=== PATIENT | female | born 1955 | race Caucasian/White ===

== ENCOUNTER → 2016-08-26 | Outpatient (CLI) | payer MEDICARE, MEDICAID ==
[2016-08-26 09:12] LABS: CHLORIDE,CL 105 mmol/L (98-110); SODIUM,NA 143 mmol/L (136-146)
== END ==
LOC: MW.CHENT 08:20 → MW.CHRC 08:20
PROVIDERS: ATTEND Family Medicine
DX: I10 Essential (primary) hypertension (principal); I25.10 Atherosclerotic heart disease of native coronary artery without angina pectoris; E10.65 Type 1 diabetes mellitus with hyperglycemia; G89.4 Chronic pain syndrome; E10.620 Type 1 diabetes mellitus with diabetic dermatitis
CPT/HCPCS: 36415; 80053; 80061; 80305; 82044; 83036; 99215

== ENCOUNTER → 2016-09-30 | Outpatient (CLI) | payer MEDICARE, MEDICAID | END | disposition home or self-care (01) | LOC: MW.CHRC 07:42 → MW.CHNEURO 07:42 | PROVIDERS: ATTEND Family Medicine | DX: Z00.00 Encounter for general adult medical examination without abnormal findings (principal); R74.8 Abnormal levels of other serum enzymes; I25.10 Atherosclerotic heart disease of native coronary artery without angina pectoris | CPT/HCPCS: 36415; 80061; 80076; 82465 ==

== ENCOUNTER → 2016-10-01 | Outpatient (CLI) | payer MEDICARE, MEDICAID | LOC: MW.CHNEURO 08:00 | PROVIDERS: ATTEND Psychiatry & Neurology Neuromuscular Medicine | DX: G25.0 Essential tremor (principal); G25.2 Other specified forms of tremor | CPT/HCPCS: G0463 ==

== ENCOUNTER 2018-01-21 03:27 | Emergency (ER) | payer MEDICARE, MEDICAID ==
[2018-01-21] MEDS ORDERED: Ondansetron 4 MG/2 ML SDV IVPUSH ONE (03:30)
[2018-01-21] MEDS ORDERED: Sodium Chloride 0.9% 1,000 ML IV ONE (03:30)
--- NOTE | 2018-01-21 03:31 | EDM.PDOC ---
ED HPI GENERAL MEDICAL PROBLEM - General Stated Complaint: CHEST PAINS/THROWING UP Time Seen by Provider: 01/21/18 03:31 Source of Information: Reports: Patient - History of Present Illness INITIAL COMMENTS - FREE TEXT/NARRATIVE: HISTORY AND PHYSICAL: History of present illness: [Patient presents with complaint of nausea vomiting and diarrhea, she has several episodes monthly similar symptoms however tonight the symptoms began at midnight is currently 5 AM and symptoms were not leaving on their own at home then she presents as such. She has secondary complaint of burning chest discomfort 2 out of 10 nonradiating not associated with shortness of breath or diaphoresis Patient was provided treatment below fluids, proton X, Zofran, and GI cocktail symptoms are completely alleviated ] Review of systems: As per history of present illness and below otherwise all systems reviewed and negative. Past medical history: As per history of present illness and as reviewed below otherwise noncontributory. Surgical history: As per history of present illness and as reviewed below otherwise noncontributory. Social history: No reported history of drug or alcohol abuse. Family history: As per history of present illness and as reviewed below otherwise noncontributory. Physical exam: HEENT: Atraumatic, normocephalic, pupils reactive, negative for conjunctival pallor or scleral icterus, mucous membranes moist, throat clear, neck supple, nontender, trachea midline. Lungs: Clear to auscultation, breath sounds equal bilaterally, chest nontender. Heart: S1S2, regular, negative for clicks, rubs, or JVD. Abdomen: Soft, nondistended, nontender. Negative for masses or hepatosplenomegaly. Negative for costovertebral tenderness. Pelvis: Stable nontender. Genitourinary: Deferred. Rectal: Deferred. Extremities: Atraumatic, negative for cords or calf pain. Neurovascular unremarkable. Neuro: Awake, alert, oriented. Cranial nerves II through XII unremarkable. Cerebellum unremarkable. Motor and sensory unremarkable throughout. Exam nonfocal. Diagnostics: [CBC CMP UA lipase troponin EKG Chest 1 view ] Therapeutics: [ 1 L normal saline bolus Zofran 8 mg IV Proton X 80 mg IV GI cocktail ] Impression: [ GERD Nausea vomiting resolved No loose stools while here in the emergency room Chronic history of baseline] Definitive disposition and diagnosis as appropriate pending reevaluation and review of above. epigastric Pain Score (Numeric/FACES): 6 - Related Data Allergies Allergy/AdvReac Type Severity Reaction Status Date / Time No Known Allergies Allergy Verified 01/21/18 03:50 Home Meds: Home Meds Acetaminophen with Codeine [Acetaminophen-Cod #4] 1 - 2 tab PO Q4HR PRN [History] Aspirin 81 mg PO DAILY 01/18/15 [History] Fludrocortisone [Florinef] 0.1 mg PO ASDIRECTED 01/18/15 [History] Insulin Glarg,Human.Rec.Analog [LantUS Solostar] 13 units SQ DAILY 01/18/15 [ History] Propranolol HCl 10 mg PO TID 01/18/15 [History] Sodium Bicarbonate 1 tab PO BIDMEALS 01/18/15 [History] amLODIPine [Norvasc] 1 tab PO DAILY 01/18/15 [History] Insulin Aspart [NovoLOG] 0 unit SUBCUT TIDAC pen 01/19/15 [Rx] Carisoprodol 1 tab PO TID 01/21/18 [History] Clopidogrel Bisulfate [Clopidogrel] 1 tab PO DAILY 01/21/18 [History] Lisinopril 1 tab PO DAILY 01/21/18 [History] Ondansetron HCl [Zofran] 1 tab PO ASDIRECTED PRN 01/21/18 [History] Pantoprazole [ProTONIX] 1 tab PO DAILY 01/21/18 [History] Rosuvastatin Calcium 1 tab PO BEDTIME 01/21/18 [History] Triamcinolone Acetonide [Triamcinolone Acetonide 0.1% Crm] 0 mg .XX BID [History] Past Medical History HEENT History: Reports: None Cardiovascular History: Reports: None Respiratory History: Reports: None Gastrointestinal History: Reports: None Other Gastrointestinal History: abdominal surgery [employer] History: Reports: 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 History: Reports: None Neurological History: Reports: None Psychiatric History: Reports: None Endocrine/Metabolic History: Reports: Other (See Below) Other Endocrine/Metabolic History: hyperkalemia Hematologic History: Reports: None Immunologic History: Reports: None Oncologic (Cancer) History: Reports: None Dermatologic History: Reports: None - Infectious Disease History Infectious Disease History: Reports: None - Past Surgical History Cardiovascular Surgical History: Reports: Other (See Below) Female Surgical History: Reports: Section ED ROS GENERAL - Review of Systems Review Of Systems: See Below ED EXAM, GENERAL - Physical Exam Exam: See Below Course - Vital Signs Last Recorded V/S: Last Vital Signs Temp 97 F 01/21/18 03:27 Pulse 65 01/21/18 04:52 Resp 18 01/21/18 04:52 BP 160/68 H 01/21/18 04:52 Pulse Ox 96 01/21/18 04:26 - Orders/Labs/Meds Orders: Active Orders 24 hr Category Date Time Status EKG Documentation Completion [RC] STAT Care 01/21/18 03:31 Active Chest 1V Frontal [CR] Stat Exams 01/21/18 03:31 Taken UA W/MICROSCOPIC [URIN] Stat Lab 01/21/18 03:30 Ordered Labs: Laboratory Tests 01/21/18 01/21/18 01/21/18 Range/Units 03:30 03:55 03:55 WBC 10.19 (4.0-11.0) K/uL RBC 4.12 L (4.30-5.90) M/uL Hgb 12.1 (12.0-16.0) g/dL Hct 36.8 (36.0-46.0) % MCV 89.3 (80.0-98.0) fL MCH 29.4 (27.0-32.0) pg MCHC 32.9 (31.0-37.0) g/dL RDW Std Deviation 45.9 (28.0-62.0) fl RDW Coeff of Hesham 14 (11.0-15.0) % Plt Count 264 (150-400) K/uL MPV 10.60 (7.40-12.00) fL Neut % (Auto) 74.0 (48.0-80.0) % Lymph % (Auto) 12.8 L (16.0-40.0) % [place] % (Auto) 9.7 (0.0-15.0) % Eos % (Auto) 2.9 (0.0-7.0) % Baso % (Auto) 0.6 (0.0-1.5) % Neut # (Auto) 7.5 H (1.4-5.7) K/uL Lymph # (Auto) 1.3 (0.6-2.4) K/uL [place] # (Auto) 1.0 H (0.0-0.8) K/uL Eos # (Auto) 0.3 (0.0-0.7) K/uL Baso # (Auto) 0.1 (0.0-0.1) K/uL Nucleated RBC % 0.0 /100WBC Nucleated RBCs # 0 K/uL Sodium 140 (136-145) mmol/L Potassium 3.6 (3.5-5.1) mmol/L Chloride 104 (98-107) mmol/L Carbon Dioxide 29.4 (21.0-32.0) mmol/L BUN 12 (7.0-18.0) mg/dL Creatinine 0.7 (0.6-1.0) mg/dL Est Cr Clr Drug Dosing 58.32 mL/min Estimated GFR (MDRD) > 60.0 ml/min Glucose 165 H (74-106) mg/dL Calcium 8.0 L (8.5-10.1) mg/dL Total Bilirubin 0.4 (0.2-1.0) mg/dL AST 30 (15-37) IU/L ALT 33 (14-63) IU/L Alkaline Phosphatase 121 H (46-116) U/L Troponin I < 0.050 (0.000-0.056) ng/mL Total Protein 6.8 (6.4-8.2) g/dL Albumin 2.9 L (3.4-5.0) g/dL Globulin 3.9 H (2.0-3.5) g/dL Albumin/Globulin Ratio 0.7 L (1.3-2.8) Lipase 67 L (73-393) U/L Urine Color YELLOW Urine Appearance CLEAR Urine pH 7.5 (5.0-8.0) Ur Specific [place] 1.010 (1.001-1.035) Urine Protein TRACE (NEGATIVE) mg/dL Urine Glucose (UA) 100 H (NEGATIVE) mg/dL Urine Ketones NEGATIVE (NEGATIVE) mg/dL Urine Occult Blood NEGATIVE (NEGATIVE) Urine Nitrite NEGATIVE (NEGATIVE) Urine Bilirubin NEGATIVE (NEGATIVE) Urine Urobilinogen 0.2 (<2.0) EU/dL Ur Leukocyte Esterase NEGATIVE (NEGATIVE) Urine RBC 0-1 (0-2/HPF) Urine WBC 0-2 (0-5/HPF) Ur Epithelial Cells RARE (NONE-FEW) Urine Bacteria RARE (NEGATIVE) Urine Mucus LIGHT (NONE-MOD) Meds: Medications Discontinued Medications Generic Name Dose Route Start Last Admin Trade Name Marcelino PRN Reason Stop Dose Admin Al Hydroxide/Mg Hydroxide 15 0 ml 01/21/18 04:03 01/21/18 04:15 ml/ Metoclopramide HCl 5 mg/ PO 01/21/18 04:04 1 each Lidocaine HCl 5 ml ONETIME ONE Administration Sodium Chloride 1,000 mls @ 999 mls/hr 01/21/18 03:30 01/21/18 03:40 Normal Saline IV 01/21/18 04:30 999 mls/hr STAT ONE Administration Ondansetron HCl 8 mg 01/21/18 03:30 01/21/18 03:40 Zofran IVPUSH 01/21/18 03:31 8 mg ONETIME ONE Administration Pantoprazole Sodium 80 mg 01/21/18 03:32 01/21/18 03:42 Protonix Iv IVPUSH 01/21/18 03:33 80 mg .BOLUS ONE Administration Departure - Departure Time of Disposition: 04:58 Disposition: Home, Self-Care 01 Condition: Good Clinical Impression: GERD (gastroesophageal reflux disease) - Discharge Information Referrals: Oskar Verma MD [Primary Care Provider] - Additional Instructions: Omeprazole 40 mg daily may benefit Zantac 150 milligrams 2 times daily may benefit as your symptoms are only nocturnal, you may benefit from elevating the head of your bed as discussed Follow-up with your primary care in 2 weeks sooner as needed Return if symptoms persist or worsen or new concerning symptoms develop The following information is given to patients seen in the emergency department who are being discharged to home. This information is to outline your options for follow-up care. We provide all patients seen in our emergency department with a follow-up referral. The need for follow-up, as well as the timing and circumstances, are variable depending upon the specifics of your emergency department visit. If you don't have a primary care physician on staff, we will provide you with a referral. We always advise you to contact your personal physician following an emergency department visit to inform them of the circumstance of the visit and for follow-up with them and/or the need for any referrals to a consulting specialist. The emergency department will also refer you to a specialist when appropriate. This referral assures that you have the opportunity for follow-up care with a specialist. All of these measure are taken in an effort to provide you with optimal care, which includes your follow-up. Under all circumstances we always encourage you to contact your private physician who remains a resource for coordinating your care. When calling for follow-up care, please make the office aware that this follow-up is from your recent emergency room visit. If for any reason you are refused follow-up, please contact the [facility] emergency department at and asked to speak to the emergency department charge nurse. - My Orders Last 24 Hours: My Active Orders 01/21/18 03:30 UA W/MICROSCOPIC [URIN] Stat 01/21/18 03:31 EKG Documentation Completion [RC] STAT Chest 1V Frontal [CR] Stat - Assessment/Plan Last 24 Hours: My Active Orders 01/21/18 03:30 UA W/MICROSCOPIC [URIN] Stat 01/21/18 03:31 EKG Documentation Completion [RC] STAT Chest 1V Frontal [CR] Stat
[2018-01-21] MEDS ORDERED: Pantoprazole 40 MG Vial IVPUSH ONE (03:32)
[2018-01-21] MEDS ORDERED: Alum Hydrox/Mag Hydrox/Simeth 15 ML, Metoclopramide 5 MG, Lidocaine 2% 5 ML PO ONE ×3 (04:03)
[2018-01-21 04:25] LABS: CHLORIDE,CL 104 mmol/L (98-107); SODIUM,NA 140 mmol/L (136-145)
[2018-01-21 05:15] VITALS: BP 164/67
--- NOTE | 2018-01-21 14:25 | CR ---
EXAM DATE: 01/21/18 PATIENT'S AGE: 62 Patient: KIRSTY DE GUZMAN Facility: [place], [place] Site . Site : [id number] Study: XRay Chest [id number] 3:53:04 AM Ordering Physician: Doctor Wolf Final Report: Indication: Pain. Shortness of breath Technique: Chest 1 view Comparison: None Findings/Impression: Cardiovascular and mediastinum: Heart size and vasculature are normal in caliber and appearance. Mediastinum is within normal limits. Lungs and pleural space: An apparent very subtle and ill-defined left infrahilar opacity with partial obscuration of the left cardiac border, concerning for an evolving infectious infiltrate. Probable right infrahilar vascular crowding. An apparent 9 millimeter right upper lung nodular opacity projecting over the posterior 5th rib. Correlate clinically and followup to document resolution. If these do not resolve, correlate with CT. No pleural effusions. Bones and soft tissues: A chronic deformity of the proximal left humerus. Surgical clips projecting over the lower thoracic spine. Dictated by Robe Ho MD @ 01/21/2018 4:13:49 AM Dictated by: Robe Ho MD @ 01/21/2018 04:13:52 (Electronic Signature) Report Signed by Proxy. THIERRY
== END 2018-01-21 05:05 | disposition home or self-care (01) ==
LOC: MW.ED 03:27
DX: K21.9 Gastro-esophageal reflux disease without esophagitis (principal); Z79.899 Other long term (current) drug therapy; Z79.82 Long term (current) use of aspirin
CPT/HCPCS: 36415; 71045; 80053; 81001; 83690; 84484; 85025; 93005; 96361; 96374; 96375; 99284; A9270; C9113; J2405; J7040; 99283

== ENCOUNTER 2018-06-30 08:55 | Observation (INO) | payer MEDICARE, MEDICAID ==
[2018-06-30] MEDS ORDERED: Ondansetron 4 MG/2 ML SDV IVPUSH ONE (09:00)
[2018-06-30] MEDS ORDERED: Alum Hydrox/Mag Hydrox/Simeth 15 ML, Metoclopramide 5 MG, Lidocaine 2% 5 ML PO ONE ×3 (09:00)
[2018-06-30] MEDS ORDERED: Sodium Chloride 0.9% 1,000 ML IV ONE (09:00)
--- NOTE | 2018-06-30 09:00 | EDM.PDOC ---
ED HPI GENERAL MEDICAL PROBLEM - General Stated Complaint: PT SENT TO ER BY PCP Time Seen by Provider: 06/30/18 08:57 - History of Present Illness INITIAL COMMENTS - FREE TEXT/NARRATIVE: HISTORY AND PHYSICAL: History of present illness: Patient is a 63-year-old female who presents with a concern of nausea vomiting diarrhea 1 day she was sent here for evaluation and treatment patient has had similar episodes in the past she denies fever chills chest pain shortness of breath or other concern Review of systems: As per history of present illness and below otherwise all systems reviewed and negative. Past medical history: As per history of present illness and as reviewed below otherwise noncontributory. Surgical history: As per history of present illness and as reviewed below otherwise noncontributory. Social history: No reported history of drug or alcohol abuse. Family history: As per history of present illness and as reviewed below otherwise noncontributory. Physical exam: HEENT: Atraumatic, normocephalic, pupils reactive, negative for conjunctival pallor or scleral icterus, mucous membranes dry, throat clear, neck supple, nontender, trachea midline. Lungs: Clear to auscultation, breath sounds equal bilaterally, chest nontender. Heart: S1S2, regular, negative for clicks, rubs, or JVD. Abdomen: Soft, nondistended, nontender. Negative for masses or hepatosplenomegaly. Negative for costovertebral tenderness. Pelvis: Stable nontender. Genitourinary: Deferred. Rectal: Deferred. Extremities: Atraumatic, negative for cords or calf pain. Neurovascular unremarkable. Neuro: Awake, alert, oriented. Cranial nerves II through XII unremarkable. Cerebellum unremarkable. Motor and sensory unremarkable throughout. Exam nonfocal. Diagnostics: CBC CMP troponin chest x-ray EKG ABG Therapeutics: Saline 1 L bolus GI cocktail Zofran 4 mg IV Impression: #1 diabetes #2 vomiting/diarrhea with dehydration Definitive disposition and diagnosis as appropriate pending reevaluation and review of above. - Related Data Allergies Allergy/AdvReac Type Severity Reaction Status Date / Time No Known Allergies Allergy Verified 01/21/18 03:50 Home Meds: Home Meds Acetaminophen with Codeine [Acetaminophen-Cod #4] 1 - 2 tab PO Q4HR PRN [History] Aspirin 81 mg PO DAILY 01/18/15 [History] Fludrocortisone [Florinef] 0.1 mg PO ASDIRECTED 01/18/15 [History] Insulin Glarg,Human.Rec.Analog [LantUS Solostar] 13 units SQ DAILY 01/18/15 [ History] Propranolol HCl 10 mg PO TID 01/18/15 [History] Sodium Bicarbonate 1 tab PO BIDMEALS 01/18/15 [History] amLODIPine [Norvasc] 1 tab PO DAILY 01/18/15 [History] Insulin Aspart [NovoLOG] 0 unit SUBCUT TIDAC pen 01/19/15 [Rx] Carisoprodol 1 tab PO TID 01/21/18 [History] Clopidogrel Bisulfate [Clopidogrel] 1 tab PO DAILY 01/21/18 [History] Lisinopril 1 tab PO DAILY 01/21/18 [History] Ondansetron HCl [Zofran] 1 tab PO ASDIRECTED PRN 01/21/18 [History] Pantoprazole [ProTONIX] 1 tab PO DAILY 01/21/18 [History] Rosuvastatin Calcium 1 tab PO BEDTIME 01/21/18 [History] Triamcinolone Acetonide [Triamcinolone Acetonide 0.1% Crm] 0 mg .XX BID [History] Past Medical History HEENT History: Reports: None Cardiovascular History: Reports: None Respiratory History: Reports: None Gastrointestinal History: Reports: None Other Gastrointestinal History: abdominal surgery [employer] History: Reports: 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 History: Reports: None Neurological History: Reports: None Psychiatric History: Reports: None Endocrine/Metabolic History: Reports: Other (See Below) Other Endocrine/Metabolic History: hyperkalemia Hematologic History: Reports: None Immunologic History: Reports: None Oncologic (Cancer) History: Reports: None Dermatologic History: Reports: None - Infectious Disease History Infectious Disease History: Reports: None - Past Surgical History Cardiovascular Surgical History: Reports: Other (See Below) Female Surgical History: Reports: Section Social & Family History - Family History Family Medical History: Noncontributory ED ROS GENERAL - Review of Systems Review Of Systems: ROS reveals no pertinent complaints other than HPI. ED EXAM, GENERAL - Physical Exam Exam: See Below (See dictation) Course - Vital Signs Last Recorded V/S: Last Vital Signs Temp 36.4 C 06/30/18 11:51 Pulse 70 06/30/18 11:51 Resp 13 06/30/18 11:51 BP 125/55 L 06/30/18 11:51 Pulse Ox 95 06/30/18 11:51 - Orders/Labs/Meds Orders: Active Orders 24 hr Category Date Time Status EKG 12 Lead [EKG Documentation Completion] [RC] STAT Care 06/30/18 09:16 Active CBC WITH AUTO DIFF [HEME] Stat Lab 06/30/18 07:55 Results CULTURE BLOOD [BC] Stat Lab 06/30/18 10:57 Received CULTURE BLOOD [BC] Stat Lab 06/30/18 11:13 Received cefTRIAXone [Rocephin in Dextrose,Iso-Osm 1 GM/50 ML] 1 Med 06/30/18 12:15 Ordered gm Premix Bag 1 bag IV ONETIME Blood Culture x2 Reflex Set [OM.PC] Stat Oth 06/30/18 10:40 Ordered Medication Orders Ceftriaxone Sodium/Dextrose 1 (gm/ Premix) 50 mls @ 100 mls/hr IV ONETIME ONE Stop: 06/30/18 12:44 Labs: Laboratory Tests 06/30/18 06/30/18 06/30/18 Range/Units 07:55 07:55 08:12 WBC 22.15 H (4.0-11.0) K/uL RBC 4.30 (4.30-5.90) M/uL Hgb 12.7 (12.0-16.0) g/dL Hct 38.7 (36.0-46.0) % MCV 90.0 (80.0-98.0) fL MCH 29.5 (27.0-32.0) pg MCHC 32.8 (31.0-37.0) g/dL RDW Std Deviation 45.7 (28.0-62.0) fl RDW Coeff of Hesham 14 (11.0-15.0) % Plt Count 264 (150-400) K/uL MPV 10.80 (7.40-12.00) fL Add Manual Diff YES Nucleated RBC % 0.0 /100WBC Nucleated RBCs # 0 K/uL ABG pH 7.541 H (7.35-7.45) ABG pCO2 33 L (35-45) mmHG ABG pO2 65 L (75-100) mmHG ABG HCO3 28 H (22-26) mEq/L ABG Total CO2 24.8 ABG Base Excess 5.5 H (-2.0-2.0) Lactate (0.20-2.00) mmol/L Sodium 139 (136-145) mmol/L Potassium 4.1 (3.5-5.1) mmol/L Chloride 101 (98-107) mmol/L Carbon Dioxide 26.8 (21.0-32.0) mmol/L BUN 12 (7.0-18.0) mg/dL Creatinine 0.9 (0.6-1.0) mg/dL Est Cr Clr Drug Dosing TNP Estimated GFR (MDRD) > 60.0 ml/min Glucose 226 H (74-106) mg/dL POC Glucose (60-110) mg/dL Calcium 9.3 (8.5-10.1) mg/dL Total Bilirubin 0.5 (0.2-1.0) mg/dL AST 60 H (15-37) IU/L ALT 64 H (14-63) IU/L Alkaline Phosphatase 132 H (46-116) U/L Troponin I < 0.050 (0.000-0.056) ng/mL Total Protein 7.4 (6.4-8.2) g/dL Albumin 3.1 L (3.4-5.0) g/dL Globulin 4.3 H (2.6-4.0) g/dL Albumin/Globulin Ratio 0.7 L (0.9-1.6) Urine Color Urine Appearance Urine pH (5.0-8.0) Ur Specific [place] (1.001-1.035) Urine Protein (NEGATIVE) mg/dL Urine Glucose (UA) (NEGATIVE) mg/dL Urine Ketones (NEGATIVE) mg/dL Urine Occult Blood (NEGATIVE) Urine Nitrite (NEGATIVE) Urine Bilirubin (NEGATIVE) Urine Ictotest Urine Urobilinogen (<2.0) EU/dL Ur Leukocyte Esterase (NEGATIVE) Urine RBC (0-2/HPF) Urine WBC (0-5/HPF) Ur Epithelial Cells (NONE-FEW) Urine Bacteria (NEGATIVE) Urine Mucus (NONE-MOD) Urine Yeast 06/30/18 06/30/18 06/30/18 Range/Units 09:05 10:47 10:57 WBC (4.0-11.0) K/uL RBC (4.30-5.90) M/uL Hgb (12.0-16.0) g/dL Hct (36.0-46.0) % MCV (80.0-98.0) fL MCH (27.0-32.0) pg MCHC (31.0-37.0) g/dL RDW Std Deviation (28.0-62.0) fl RDW Coeff of Hesham (11.0-15.0) % Plt Count (150-400) K/uL MPV (7.40-12.00) fL Add Manual Diff Nucleated RBC % /100WBC Nucleated RBCs # K/uL ABG pH (7.35-7.45) ABG pCO2 (35-45) mmHG ABG pO2 (75-100) mmHG ABG HCO3 (22-26) mEq/L ABG Total CO2 ABG Base Excess (-2.0-2.0) Lactate 1.1 (0.20-2.00) mmol/L Sodium (136-145) mmol/L Potassium (3.5-5.1) mmol/L Chloride (98-107) mmol/L Carbon Dioxide (21.0-32.0) mmol/L BUN (7.0-18.0) mg/dL Creatinine (0.6-1.0) mg/dL Est Cr Clr Drug Dosing Estimated GFR (MDRD) ml/min Glucose (74-106) mg/dL POC Glucose 230 H (60-110) mg/dL Calcium (8.5-10.1) mg/dL Total Bilirubin (0.2-1.0) mg/dL AST (15-37) IU/L ALT (14-63) IU/L Alkaline Phosphatase (46-116) U/L Troponin I (0.000-0.056) ng/mL Total Protein (6.4-8.2) g/dL Albumin (3.4-5.0) g/dL Globulin (2.6-4.0) g/dL Albumin/Globulin Ratio (0.9-1.6) Urine Color YELLOW Urine Appearance CLEAR Urine pH 5.5 (5.0-8.0) Ur Specific [place] 1.025 (1.001-1.035) Urine Protein 30 H (NEGATIVE) mg/dL Urine Glucose (UA) NEGATIVE (NEGATIVE) mg/dL Urine Ketones 15 H (NEGATIVE) mg/dL Urine Occult Blood NEGATIVE (NEGATIVE) Urine Nitrite NEGATIVE (NEGATIVE) Urine Bilirubin SMALL H (NEGATIVE) Urine Ictotest NEGATIVE Urine Urobilinogen 0.2 (<2.0) EU/dL Ur Leukocyte Esterase TRACE H (NEGATIVE) Urine RBC RARE (0-2/HPF) Urine WBC 15-20 (0-5/HPF) Ur Epithelial Cells FEW (NONE-FEW) Urine Bacteria 1+ H (NEGATIVE) Urine Mucus LIGHT (NONE-MOD) Urine Yeast MODERATE Meds: Medications Generic Name Dose Route Start Last Admin Trade Name Freq PRN Reason Stop Dose Admin Ceftriaxone Sodium/Dextrose 1 50 mls @ 100 mls/hr 06/30/18 12:15 gm/ Premix IV 06/30/18 12:44 ONETIME ONE Discontinued Medications Generic Name Dose Route Start Last Admin Trade Name Freq PRN Reason Stop Dose Admin Al Hydroxide/Mg Hydroxide 15 0 ml 06/30/18 09:00 06/30/18 09:11 ml/ Metoclopramide HCl 5 mg/ PO 06/30/18 09:01 30 each Lidocaine HCl 5 ml ONETIME ONE Administration Sodium Chloride 1,000 mls @ 999 mls/hr 06/30/18 09:00 06/30/18 09:10 Normal Saline IV 06/30/18 10:00 999 mls/hr .BOLUS ONE Administration Ondansetron HCl 4 mg 06/30/18 09:00 06/30/18 09:11 Zofran IVPUSH 06/30/18 09:01 4 mg ONETIME ONE Administration Departure - Departure Time of Disposition: 12:19 Disposition: Refer to Observation Condition: Good Clinical Impression: Gastroenteritis, Leukocytosis, Dehydration, UTI (urinary tract infection) - Discharge Information - My Orders Last 24 Hours: My Active Orders 06/30/18 07:55 CBC WITH AUTO DIFF [HEME] Stat 06/30/18 09:16 EKG 12 Lead [EKG Documentation Completion] [RC] STAT 06/30/18 10:40 Blood Culture x2 Reflex Set [OM.PC] Stat 06/30/18 10:57 CULTURE BLOOD [BC] Stat 06/30/18 11:13 CULTURE BLOOD [BC] Stat 06/30/18 12:15 cefTRIAXone [Rocephin in Dextrose,Iso-Osm 1 GM/50 ML] 1 gm Premix Bag 1 bag IV ONETIME - Assessment/Plan Last 24 Hours: My Active Orders 06/30/18 07:55 CBC WITH AUTO DIFF [HEME] Stat 06/30/18 09:16 EKG 12 Lead [EKG Documentation Completion] [RC] STAT 06/30/18 10:40 Blood Culture x2 Reflex Set [OM.PC] Stat 06/30/18 10:57 CULTURE BLOOD [BC] Stat 06/30/18 11:13 CULTURE BLOOD [BC] Stat 06/30/18 12:15 cefTRIAXone [Rocephin in Dextrose,Iso-Osm 1 GM/50 ML] 1 gm Premix Bag 1 bag IV ONETIME
[2018-06-30 09:26] LABS: CHLORIDE,CL 101 mmol/L (98-107); SODIUM,NA 139 mmol/L (136-145)
[2018-06-30] MEDS ORDERED: cefTRIAXone 1 GM in Premix Bag 1 BAG IV ONE (12:15)
[2018-06-30] MEDS ORDERED: Docusate Sodium 100 MG Cap PO PRN (12:36)
[2018-06-30] MEDS ORDERED: oxyCODONE 5 MG Tab PO PRN (12:36)
[2018-06-30] MEDS ORDERED: Ondansetron 4 MG/2 ML SDV IVPUSH PRN (12:36)
[2018-06-30] MEDS ORDERED: Acetaminophen 325 MG Tab PO PRN (12:36)
[2018-06-30] MEDS ORDERED: Fludrocortisone 0.1 MG Tab PO SCH (12:45)
[2018-06-30] MEDS ORDERED: Enoxaparin 40 MG/0.4 ML Syringe SUBCUT SCH ×2 (12:45→18:00)
[2018-06-30] MEDS ORDERED: cefTRIAXone 1 GM in Sodium Chloride 0.9% 50 ML IV SCH (13:00)
--- NOTE | 2018-06-30 13:17 | PCM.HP ---
H&P History of Present Illness - General Date of Service: 06/30/18 Admit Problem/Dx: Admission Diagnosis/Problem Admission Diagnosis/Problem Gastroenteritis, chronic N/V, DM 1 Source of Information: Patient, Old Records History Limitations: Reports: No Limitations - History of Present Illness Initial Comments - Free Text/Narative: The patient is a 63-year-old lady who had presented to the emergency department had a request for her primary care physician. The patient had followed with her primary care physician for some laboratory testing as well as a repeat hemoglobin A1c and she had been noted to have appeared to be somewhat dehydrated as well as significant leukocytosis. The patient, herself, says that she feels great. The patient has denied any pain. Denied any dizziness. She does have chronic nausea and vomiting says she had a partial gastrectomy secondary to gastric ulcer. The patient does acknowledge that she feels dehydrated. She has denied any pain. 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 The patient has no other complaints at this time. Onset of Symptoms: Reports: Unknown/Unsure Improves with: Reports: None Worsens with: Reports: None - Related Data Allergies/Adverse Reactions: Allergies Allergy/AdvReac Type Severity Reaction Status Date / Time No Known Allergies Allergy Verified 01/21/18 03:50 Home Medications: Home Meds Acetaminophen with Codeine [Acetaminophen-Cod #4] 1 - 2 tab PO Q4HR PRN [History] Aspirin 81 mg PO DAILY 01/18/15 [History] Fludrocortisone [Florinef] 0.1 mg PO ASDIRECTED 01/18/15 [History] Insulin Glarg,Human.Rec.Analog [LantUS Solostar] 13 units SQ DAILY 01/18/15 [ History] Propranolol HCl 10 mg PO TID 01/18/15 [History] Sodium Bicarbonate 1 tab PO BIDMEALS 01/18/15 [History] amLODIPine [Norvasc] 1 tab PO DAILY 01/18/15 [History] Insulin Aspart [NovoLOG] 0 unit SUBCUT TIDAC pen 01/19/15 [Rx] Carisoprodol 1 tab PO TID 01/21/18 [History] Clopidogrel Bisulfate [Clopidogrel] 1 tab PO DAILY 01/21/18 [History] Lisinopril 1 tab PO DAILY 01/21/18 [History] Ondansetron HCl [Zofran] 1 tab PO ASDIRECTED PRN 01/21/18 [History] Pantoprazole [ProTONIX] 1 tab PO DAILY 01/21/18 [History] Rosuvastatin Calcium 1 tab PO BEDTIME 01/21/18 [History] Triamcinolone Acetonide [Triamcinolone Acetonide 0.1% Crm] 0 mg .XX BID [History] Past Medical History HEENT History: Reports: None Cardiovascular History: Reports: None Respiratory History: Reports: None Gastrointestinal History: Reports: None Other Gastrointestinal History: abdominal surgery [employer] History: Reports: 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 History: Reports: None Neurological History: Reports: None Psychiatric History: Reports: None Endocrine/Metabolic History: Reports: Diabetes, Type I Other Endocrine/Metabolic History: hyperkalemia Hematologic History: Reports: None Immunologic History: Reports: None Oncologic (Cancer) History: Reports: None Dermatologic History: Reports: Other (See Below) (necrobiosis lipoidica ulcers) - Infectious Disease History Infectious Disease History: Reports: None - Past Surgical History Cardiovascular Surgical History: Reports: Other (See Below) GI Surgical History: Reports: Other (See Below) (Partial gastrectomy secondary to ulcer) Female Surgical History: Reports: Section 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 Surgical History: Reports: Shoulder Surgery Social & Family History - Family History Family Medical History: Noncontributory - Tobacco Use Smoking Status *Q: Former Smoker Used Tobacco, but Quit: Yes Month/Year Tobacco Last Used: 03/2018 - Caffeine Use Caffeine Use: Reports: Coffee - Alcohol Use Days Per Week of Alcohol Use: 3 Number of Drinks Per Day: 1 Total Drinks Per Week: 3 - Recreational Drug Use Recreational Drug Use: No H&P Review of Systems - Review of Systems: Review Of Systems: See Below General: Reports: Chills HEENT: Reports: No Symptoms Pulmonary: Reports: No Symptoms Cardiovascular: Reports: No Symptoms Gastrointestinal: Reports: Diarrhea, Nausea, Vomiting. Denies: Hematemesis, Hematochezia Genitourinary: Reports: No Symptoms 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: Reports: No Symptoms Skin: Reports: No Symptoms Psychiatric: Reports: No Symptoms Neurological: Reports: No Symptoms Hematologic/Lymphatic: Reports: No Symptoms Immunologic: Reports: No Symptoms Exam - Exam Exam: See Below - Vital Signs Vital Signs: Last Vital Signs Temp 36.4 C 06/30/18 11:51 Pulse 70 06/30/18 11:51 Resp 13 06/30/18 11:51 BP 125/55 L 06/30/18 11:51 Pulse Ox 95 06/30/18 11:51 Weight: 40.823 kg - Exam Quality Assessment: No: Supplemental Oxygen General: Alert, Oriented, Cooperative HEENT: Conjunctiva Clear, EACs Clear, EOMI, Hearing Intact, Pupils Equal, PERRLA. No: Mucosa Moist & [place] (Dry) Neck: Supple, Trachea Midline Lungs: Clear to Auscultation, Normal Respiratory Effort Cardiovascular: Regular Rate, Regular Rhythm GI/Abdominal Exam: Normal Bowel Sounds, Soft, Non-Tender, No Distention (Female) Exam: Deferred Rectal (Female) Exam: Deferred Back Exam: Normal Inspection, Full Range of Motion Extremities: Normal Inspection, No Pedal Edema Skin: Warm, Dry Neurological: Cranial Nerves Intact Neuro Extensive - Mental Status: Alert, Oriented x3 Psychiatric: Alert, Normal Affect, Normal Mood - Patient Data Lab Results Last 24 hrs: Laboratory Results - last 24 hr 06/30/18 06/30/18 06/30/18 Range/Units 07:55 07:55 08:12 WBC 22.15 H (4.0-11.0) K/uL RBC 4.30 (4.30-5.90) M/uL Hgb 12.7 (12.0-16.0) g/dL Hct 38.7 (36.0-46.0) % MCV 90.0 (80.0-98.0) fL MCH 29.5 (27.0-32.0) pg MCHC 32.8 (31.0-37.0) g/dL RDW Std Deviation 45.7 (28.0-62.0) fl RDW Coeff of Hes[place] 14 (11.0-15.0) % Plt Count 264 (150-400) K/uL MPV 10.80 (7.40-12.00) fL Add Manual Diff YES Nucleated RBC % 0.0 /100WBC Nucleated RBCs # 0 K/uL ABG pH 7.541 H (7.35-7.45) ABG pCO2 33 L (35-45) mmHG ABG pO2 65 L (75-100) mmHG ABG HCO3 28 H (22-26) mEq/L ABG Total CO2 24.8 ABG Base Excess 5.5 H (-2.0-2.0) Lactate (0.20-2.00) mmol/L Sodium 139 (136-145) mmol/L Potassium 4.1 (3.5-5.1) mmol/L Chloride 101 (98-107) mmol/L Carbon Dioxide 26.8 (21.0-32.0) mmol/L BUN 12 (7.0-18.0) mg/dL Creatinine 0.9 (0.6-1.0) mg/dL Est Cr Clr Drug Dosing TNP Estimated GFR (MDRD) > 60.0 ml/min Glucose 226 H (74-106) mg/dL POC Glucose (60-110) mg/dL Calcium 9.3 (8.5-10.1) mg/dL Total Bilirubin 0.5 (0.2-1.0) mg/dL AST 60 H (15-37) IU/L ALT 64 H (14-63) IU/L Alkaline Phosphatase 132 H (46-116) U/L Troponin I < 0.050 (0.000-0.056) ng/mL Total Protein 7.4 (6.4-8.2) g/dL Albumin 3.1 L (3.4-5.0) g/dL Globulin 4.3 H (2.6-4.0) g/dL Albumin/Globulin Ratio 0.7 L (0.9-1.6) Urine Color Urine Appearance Urine pH (5.0-8.0) Ur Specific [place] (1.001-1.035) Urine Protein (NEGATIVE) mg/dL Urine Glucose (UA) (NEGATIVE) mg/dL Urine Ketones (NEGATIVE) mg/dL Urine Occult Blood (NEGATIVE) Urine Nitrite (NEGATIVE) Urine Bilirubin (NEGATIVE) Urine Ictotest Urine Urobilinogen (<2.0) EU/dL Ur Leukocyte Esterase (NEGATIVE) Urine RBC (0-2/HPF) Urine WBC (0-5/HPF) Ur Epithelial Cells (NONE-FEW) Urine Bacteria (NEGATIVE) Urine Mucus (NONE-MOD) Urine Yeast 06/30/18 06/30/18 06/30/18 Range/Units 09:05 10:47 10:57 WBC (4.0-11.0) K/uL RBC (4.30-5.90) M/uL Hgb (12.0-16.0) g/dL Hct (36.0-46.0) % MCV (80.0-98.0) fL MCH (27.0-32.0) pg MCHC (31.0-37.0) g/dL RDW Std Deviation (28.0-62.0) fl RDW Coeff of [place]ham (11.0-15.0) % Plt Count (150-400) K/uL MPV (7.40-12.00) fL Add Manual Diff Nucleated RBC % /100WBC Nucleated RBCs # K/uL ABG pH (7.35-7.45) ABG pCO2 (35-45) mmHG ABG pO2 (75-100) mmHG ABG HCO3 (22-26) mEq/L ABG Total CO2 ABG Base Excess (-2.0-2.0) Lactate 1.1 (0.20-2.00) mmol/L Sodium (136-145) mmol/L Potassium (3.5-5.1) mmol/L Chloride (98-107) mmol/L Carbon Dioxide (21.0-32.0) mmol/L BUN (7.0-18.0) mg/dL Creatinine (0.6-1.0) mg/dL Est Cr Clr Drug Dosing Estimated GFR (MDRD) ml/min Glucose (74-106) mg/dL POC Glucose 230 H (60-110) mg/dL Calcium (8.5-10.1) mg/dL Total Bilirubin (0.2-1.0) mg/dL AST (15-37) IU/L ALT (14-63) IU/L Alkaline Phosphatase (46-116) U/L Troponin I (0.000-0.056) ng/mL Total Protein (6.4-8.2) g/dL Albumin (3.4-5.0) g/dL Globulin (2.6-4.0) g/dL Albumin/Globulin Ratio (0.9-1.6) Urine Color YELLOW Urine Appearance CLEAR Urine pH 5.5 (5.0-8.0) Ur Specific [place] 1.025 (1.001-1.035) Urine Protein 30 H (NEGATIVE) mg/dL Urine Glucose (UA) NEGATIVE (NEGATIVE) mg/dL Urine Ketones 15 H (NEGATIVE) mg/dL Urine Occult Blood NEGATIVE (NEGATIVE) Urine Nitrite NEGATIVE (NEGATIVE) Urine Bilirubin SMALL H (NEGATIVE) Urine Ictotest NEGATIVE Urine Urobilinogen 0.2 (<2.0) EU/dL Ur Leukocyte Esterase TRACE H (NEGATIVE) Urine RBC RARE (0-2/HPF) Urine WBC 15-20 (0-5/HPF) Ur Epithelial Cells FEW (NONE-FEW) Urine Bacteria 1+ H (NEGATIVE) Urine Mucus LIGHT (NONE-MOD) Urine Yeast MODERATE Result Diagrams: 06/30/18 07:55 06/30/18 07:55 - Problem List (1) Dehydration SNOMED Code(s): 72167781 ICD Code: E86.0 - DEHYDRATION Status: Acute Priority: High Current Visit: Yes (2) Diabetic necrobiosis lipoidica SNOMED Code(s): 42392908 ICD Code: E11.620 - TYPE 2 DIABETES MELLITUS WITH DIABETIC DERMATITIS Status: Chronic Priority: High Current Visit: Yes (3) Diabetes mellitus type 1, controlled, insulin dependent SNOMED Code(s): 13772958 ICD Code: E10.9 - TYPE 1 DIABETES MELLITUS WITHOUT COMPLICATIONS Status: Chronic Priority: High Current Visit: Yes (4) Vomiting SNOMED Code(s): 841469134 ICD Code: R11.10 - VOMITING, UNSPECIFIED Status: Chronic Priority: High Current Visit: Yes (5) Leukocytosis SNOMED Code(s): 328034336, 765109008 ICD Code: D72.829 - ELEVATED WHITE BLOOD CELL COUNT, UNSPECIFIED Status: Acute Priority: High Current Visit: Yes Qualifiers: Leukocytosis type: bandemia Qualified Code(s): D72.825 - Bandemia (6) UTI (urinary tract infection) SNOMED Code(s): 79309817 ICD Code: N39.0 - URINARY TRACT INFECTION, SITE NOT SPECIFIED Status: Acute Priority: High Current Visit: Yes Qualifiers: Urinary tract infection type: acute cystitis Hematuria presence: without hematuria Qualified Code(s): N30.00 - Acute cystitis without hematuria Problem List Initiated/Reviewed/Updated: Yes Orders Last 24hrs: Active Orders 24 hr Category Date Time Status Patient Status [ADT] Stat ADT 06/30/18 12:34 Active Blood Glucose Check, Bedside [] WITHMEALSANDBED Care 06/30/18 12:36 Active Blood Glucose Check, Bedside [RC] WITHMEALSANDBED Care 06/30/18 12:36 Active EKG 12 Lead [EKG Documentation Completion] [RC] STAT Care 06/30/18 09:16 Active Oxygen Therapy [RC] PRN Care 06/30/18 12:36 Active Up ad [place] [RC] ASDIRECTED Care 06/30/18 12:36 Active VTE/DVT Education [RC] PER UNIT ROUTINE Care 06/30/18 12:36 Active Vital Signs [RC] Q4H Care 06/30/18 12:36 Active Consistent Carbohydrate Diet [DIET] Diet 06/30/18 Dinner Active BASIC METABOLIC PANEL,BMP [CHEM] AM Lab 07/01/18 05:11 Ordered CBC WITH AUTO DIFF [HEME] AM Lab 07/01/18 05:11 Ordered CBC WITH AUTO DIFF [HEME] Stat Lab 06/30/18 07:55 Results CULTURE BLOOD [BC] Stat Lab 06/30/18 10:57 Received CULTURE BLOOD [BC] Stat Lab 06/30/18 11:13 Received CULTURE URINE [RM] Stat Lab 06/30/18 12:36 Ordered GLYCOSYLATED HEMOGLOBIN,HGBA1C [CHEM] Stat Lab 06/30/18 12:36 Ordered Acetaminophen [Tylenol] Med 06/30/18 12:36 Active 650 mg PO Q4H PRN Clopidogrel [Plavix] Med 07/01/18 09:00 Active 75 mg PO DAILY Docusate Sodium [Colace] Med 06/30/18 12:36 Active 100 mg PO BID PRN Enoxaparin [Lovenox] Med 06/30/18 12:45 Active 40 mg SUBCUT Q24H Fludrocortisone [Florinef] Med 06/30/18 12:45 Active 0.1 mg PO ASDIRECTED Insulin Aspart [NovoLOG] Med 06/30/18 21:00 Active See Protocol SUBCUT ACBREAKFASTANDBED Ondansetron [Zofran] Med 06/30/18 12:36 Active 4 mg IVPUSH Q6H PRN Sodium Chloride 0.9% [Normal Saline] 1,000 ml Med 06/30/18 12:45 Active IV ASDIRECTED cefTRIAXone [Rocephin] 1 gm Med 07/01/18 09:00 Active Sodium Chloride 0.9% [Normal Saline] 50 ml IV Q24H oxyCODONE Med 06/30/18 12:36 Active 5 mg PO Q4H PRN Blood Culture x2 Reflex Set [OM.PC] Stat Oth 06/30/18 10:40 Ordered Glucose Management Sub Q Reflex [OM.PC] Click To Edit Ot 06/30/18 12:36 Ordered Resuscitation Status Routine Resus Stat 06/30/18 12:36 Ordered Medication Orders Acetaminophen (Tylenol) 650 mg PO Q4H PRN PRN Reason: Pain (Mild 1-3)/fever Clopidogrel Bisulfate (Plavix) 75 mg PO DAILY [facility] Docusate Sodium (Colace) 100 mg PO BID PRN PRN Reason: Constipation Enoxaparin Sodium (Lovenox) 40 mg SUBCUT Q24H [facility] Fludrocortisone Acetate (Florinef) 0.1 mg PO ASDIRECTED [place] Sodium Chloride (Normal Saline) 1,000 mls @ 100 mls/hr IV ASDIRECTED [facility] Ceftriaxone Sodium 1 gm/ (Sodium Chloride) 50 mls @ 100 mls/hr IV Q24H [facility] Stop: 07/02/18 09:29 Insulin Aspart (Novolog) 0 unit SUBCUT ACBREAKFASTANDBED MIKHAIL; Protocol Ondansetron HCl (Zofran) 4 mg IVPUSH Q6H PRN PRN Reason: Nausea/Vomiting Oxycodone HCl (Oxycodone) 5 mg PO Q4H PRN PRN Reason: Pain (moderate 4-6) Assessment/Plan Comment:: The patient is a 63-year-old lady who essentially has dehydration likely this time secondary to her chronic nausea and vomiting. The patient will be admitted to observation. She'll be fluid resuscitated with the use of IV normal saline at 100 mL per hour. The patient had followed up with her primary care physician and was noted to have a hemoglobin A1c of 8.7%. The patient will be kept on a ADA diet as tolerated. I've also recommended the patient continue to use her home medications as the patient has a good understanding and a desire to maintain her on scheduled medications. The patient does have a cutaneous glucose sensor and this can be used. The patient does have marked leukocytosis and I suspect that when the patient has sufficient fluids she should return to normal. The patient also has a mild UTI and she'll be treated with Rocephin 1 g IV daily for this. Likely to continue oral antibiotics as an outpatient. The patient was also been encouraged to ambulate. Further, the patient will be kept on a DVT prophylaxis with the use of Lovenox. Repeat laboratory studies have been ordered for the morning. The patient will likely be appropriate for discharge in the morning.
[2018-06-30] MEDS ORDERED: INSULIN ASPART 100 UNIT/ML SUBCUT PRN ×2 (14:19→14:45)
[2018-06-30] MEDS: Sodium Chloride 0.9% 1,000 ML IV SCH (18:12)
[2018-06-30] MEDS ORDERED: Ondansetron 4 MG Tab PO PRN (18:39)
[2018-06-30] MEDS ORDERED: Rosuvastatin 10 MG Tab PO SCH (21:00)
[2018-06-30] MEDS ORDERED: Insulin Aspart 100 Units/ML 3 ML Pen SUBCUT SCH (21:00)
[2018-06-30] MEDS: Propranolol 20 MG Tab PO SCH (22:20)
[2018-07-01] MEDS: Sodium Chloride 0.9% 1,000 ML IV SCH (03:42)
[2018-07-01 05:34] LABS: CHLORIDE,CL 104 mmol/L (98-107); SODIUM,NA 140 mmol/L (136-145)
[2018-07-01] MEDS: Propranolol 20 MG Tab PO SCH (06:23)
[2018-07-01 07:44] VITALS: BP 138/68
[2018-07-01] MEDS ORDERED: ACETAMINOPHEN WITH CODEINE PO PRN (07:53)
[2018-07-01] MEDS ORDERED: Sodium Bicarbonate 650 MG Tab PO SCH (08:00)
--- NOTE | 2018-07-01 08:52 | PCM.DCSUM1 ---
Discharge Summary - Hospital Course Diagnosis: Stroke: No Modified [place] Scale: No Signif.Disability Despite Sympt.Able to Carry Out Usual Act./Duties Modified [place] Scale Score: 1 - Discharge Data Discharge Date: 07/01/18 Discharge Disposition: Home, Self-Care 01 Condition: Good - Discharge Diagnosis/Problem(s) (1) Dehydration SNOMED Code(s): 99505410 ICD Code: E86.0 - DEHYDRATION Status: Resolved Priority: High (2) Diabetic necrobiosis lipoidica SNOMED Code(s): 10730525 ICD Code: E11.620 - TYPE 2 DIABETES MELLITUS WITH DIABETIC DERMATITIS Status: Chronic Priority: High (3) Diabetes mellitus type 1, controlled, insulin dependent SNOMED Code(s): 23262935 ICD Code: E10.9 - TYPE 1 DIABETES MELLITUS WITHOUT COMPLICATIONS Status: Chronic Priority: High (4) Vomiting SNOMED Code(s): 787191143 ICD Code: R11.10 - VOMITING, UNSPECIFIED Status: Chronic Priority: High (5) Leukocytosis SNOMED Code(s): 302570486, 767016761 ICD Code: D72.829 - ELEVATED WHITE BLOOD CELL COUNT, UNSPECIFIED Status: Resolved Priority: High Qualifiers: Leukocytosis type: bandemia Qualified Code(s): D72.825 - Bandemia (6) UTI (urinary tract infection) SNOMED Code(s): 92747413 ICD Code: N39.0 - URINARY TRACT INFECTION, SITE NOT SPECIFIED Status: Acute Priority: High Qualifiers: Urinary tract infection type: acute cystitis Hematuria presence: without hematuria Qualified Code(s): N30.00 - Acute cystitis without hematuria - Patient Summary/Data Hospital Course: The patient is a 63-year-old lady who essentially has dehydration likely this time secondary to her chronic nausea and vomiting. The patient will be admitted to observation. She'll be fluid resuscitated with the use of IV normal saline at 100 mL per hour. The patient had followed up with her primary care physician and was noted to have a hemoglobin A1c of 8.7%. The patient will be kept on a ADA diet as tolerated. I've also recommended the patient continue to use her home medications as the patient has a good understanding and a desire to maintain her on scheduled medications. The patient does have a cutaneous glucose sensor and this can be used. The patient does have marked leukocytosis and I suspect that when the patient has sufficient fluids she should return to normal. The patient also has a mild UTI and she'll be treated with Rocephin 1 g IV daily for this. Likely to continue oral antibiotics as an outpatient. The patient continued to improve over the short course of hospitalization. She was tolerating diet. She has been recommended to continue with her diabetic diet as tolerated. She is also to have activity as tolerated. She is to follow-up with her PCP for elevated ALT and AST. Continue on current antibiotics. She has been stable and she has been discharged with the recommendation as listed above. - Patient Instructions Diet: Heart Healthy Diet, Diabetic Diet Activity: As Tolerated Driving: May Drive Today - Discharge Plan *PRESCRIPTION DRUG MONITORING PROGRAM REVIEWED*: No *COPY OF PRESCRIPTION DRUG MONITORING REPORT IN PATIENT ESTEPHANIA: No Home Medications: Home Meds Acetaminophen with Codeine [Acetaminophen-Cod #4] 1 - 2 tab PO Q4HR PRN [History] Aspirin 81 mg PO DAILY 01/18/15 [History] Fludrocortisone [Florinef] 0.1 mg PO ASDIRECTED 01/18/15 [History] Insulin Glarg,Human.Rec.Analog [LantUS Solostar] 13 units SQ DAILY 01/18/15 [ History] Propranolol HCl 10 mg PO TID 01/18/15 [History] Sodium Bicarbonate 1 tab PO BIDMEALS 01/18/15 [History] amLODIPine [Norvasc] 1 tab PO DAILY 01/18/15 [History] Insulin Aspart [NovoLOG] 0 unit SUBCUT TIDAC pen 01/19/15 [Rx] Carisoprodol 1 tab PO TID PRN 01/21/18 [History] Clopidogrel Bisulfate [Clopidogrel] 1 tab PO DAILY 01/21/18 [History] Lisinopril 1 tab PO DAILY 01/21/18 [History] Ondansetron HCl [Zofran] 1 tab PO ASDIRECTED PRN 01/21/18 [History] Pantoprazole [ProTONIX] 1 tab PO DAILY 01/21/18 [History] Rosuvastatin Calcium 20 tab PO BEDTIME 01/21/18 [History] Triamcinolone Acetonide [Triamcinolone Acetonide 0.1% Crm] 0 mg .XX BID [History] Doxycycline Hyclate 100 mg PO DAILY 06/30/18 [History] Docusate Sodium [Colace] 100 mg PO BID PRN cap 07/01/18 [Rx] Patient's Own Medication [Ptom] 0 each SUBCUT WITHMEALSANDBED PRN each [Rx] Oxygen Therapy Mode: Room Air Patient Handouts: Viral Gastroenteritis, Adult, [id number], Urinary Tract Infection, Adult, [id number] Referrals: Alcon Barkley MD [Resident] - 07/11/18 2:30 pm (This appointment was made with a different doctor sherrie Harris is over 3 weeks out. ) Shayla Kvng,[employer] [Ordering Only Provider] - Oskar Verma MD [Primary Care Provider] - - Discharge Summary/Plan Comment DC Time >30 min.: Yes - General Info Date of Service: 07/01/18 Admission Dx/Problem (Free Text: Admission Diagnosis/Problem Admission Diagnosis/Problem Gastroenteritis, chronic N/V, DM 1 Functional Status: Reports: Pain Controlled, Tolerating Diet - Review of Systems General: Reports: No Symptoms HEENT: Reports: No Symptoms Pulmonary: Reports: No Symptoms Cardiovascular: Reports: No Symptoms Gastrointestinal: Reports: No Symptoms Genitourinary: Reports: No Symptoms 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: Reports: No Symptoms Skin: Reports: No Symptoms Neurological: Reports: No Symptoms Psychiatric: Reports: No Symptoms - Patient Data Vitals - Most Recent: Last Vital Signs Temp 36.0 C 07/01/18 07:20 Pulse 67 07/01/18 07:20 Resp 16 07/01/18 07:20 BP 138/68 07/01/18 08:25 Pulse Ox 98 07/01/18 07:20 Weight - Most Recent: 41.447 kg I&O - Last 24 hours: Intake & Output 06/30/18 07/01/18 07/01/18 22:59 06:59 14:59 Intake Total 300 1600 Output Total 2100 Balance 300 -500 Lab Results - Last 24 hrs: Laboratory Results - last 24 hr 06/30/18 06/30/18 06/30/18 Range/Units 07:55 07:55 08:12 WBC 22.15 H (4.0-11.0) K/uL RBC 4.30 (4.30-5.90) M/uL Hgb 12.7 (12.0-16.0) g/dL Hct 38.7 (36.0-46.0) % MCV 90.0 (80.0-98.0) fL MCH 29.5 (27.0-32.0) pg MCHC 32.8 (31.0-37.0) g/dL RDW Std Deviation 45.7 (28.0-62.0) fl RDW Coeff of [place] 14 (11.0-15.0) % Plt Count 264 (150-400) K/uL MPV 10.80 (7.40-12.00) fL Neut % (Auto) (48.0-80.0) % Lymph % (Auto) (16.0-40.0) % [place] % (Auto) (0.0-15.0) % Eos % (Auto) (0.0-7.0) % Baso % (Auto) (0.0-1.5) % Neut # (Auto) (1.4-5.7) K/uL Lymph # (Auto) (0.6-2.4) K/uL [place] # (Auto) (0.0-0.8) K/uL Eos # (Auto) (0.0-0.7) K/uL Baso # (Auto) (0.0-0.1) K/uL Add Manual Diff YES Neutrophils % (Manual) 76 (48.0-80.0) % Band Neutrophils % 7 % Lymphocytes % (Manual) 8 L (16.0-40.0) % Monocytes % (Manual) 6 (0.0-15.0) % Eosinophils % (Manual) 2 (0.0-7.0) % Basophils % (Manual) 1 (0.0-1.5) % Nucleated RBC % 0.0 /100WBC Absolute Seg Neuts 16.8 H (1.4-5.7) Band Neutrophils # 1.6 Lymphocytes # (Manual) 1.8 (0.6-2.4) Monocytes # (Manual) 1.3 H (0.0-0.8) Eosinophils # (Manual) 0.4 (0.0-0.7) Basophils # (Manual) 0.2 H (0.0-0.1) Nucleated RBCs # 0 K/uL ABG pH 7.541 H (7.35-7.45) ABG pCO2 33 L (35-45) mmHG ABG pO2 65 L (75-100) mmHG ABG HCO3 28 H (22-26) mEq/L ABG Total CO2 24.8 ABG Base Excess 5.5 H (-2.0-2.0) Lactate (0.20-2.00) mmol/L Sodium 139 (136-145) mmol/L Potassium 4.1 (3.5-5.1) mmol/L Chloride 101 (98-107) mmol/L Carbon Dioxide 26.8 (21.0-32.0) mmol/L BUN 12 (7.0-18.0) mg/dL Creatinine 0.9 (0.6-1.0) mg/dL Est Cr Clr Drug Dosing TNP Estimated GFR (MDRD) > 60.0 ml/min Glucose 226 H (74-106) mg/dL POC Glucose (60-110) mg/dL Calcium 9.3 (8.5-10.1) mg/dL Total Bilirubin 0.5 (0.2-1.0) mg/dL AST 60 H (15-37) IU/L ALT 64 H (14-63) IU/L Alkaline Phosphatase 132 H (46-116) U/L Troponin I < 0.050 (0.000-0.056) ng/mL Total Protein 7.4 (6.4-8.2) g/dL Albumin 3.1 L (3.4-5.0) g/dL Globulin 4.3 H (2.6-4.0) g/dL Albumin/Globulin Ratio 0.7 L (0.9-1.6) Urine Color Urine Appearance Urine pH (5.0-8.0) Ur Specific [place] (1.001-1.035) Urine Protein (NEGATIVE) mg/dL Urine Glucose (UA) (NEGATIVE) mg/dL Urine Ketones (NEGATIVE) mg/dL Urine Occult Blood (NEGATIVE) Urine Nitrite (NEGATIVE) Urine Bilirubin (NEGATIVE) Urine Ictotest Urine Urobilinogen (<2.0) EU/dL Ur Leukocyte Esterase (NEGATIVE) Urine RBC (0-2/HPF) Urine WBC (0-5/HPF) Ur Epithelial Cells (NONE-FEW) Urine Bacteria (NEGATIVE) Urine Mucus (NONE-MOD) Urine Yeast 06/30/18 06/30/18 06/30/18 Range/Units 09:05 10:47 10:57 WBC (4.0-11.0) K/uL RBC (4.30-5.90) M/uL Hgb (12.0-16.0) g/dL Hct (36.0-46.0) % MCV (80.0-98.0) fL MCH (27.0-32.0) pg MCHC (31.0-37.0) g/dL RDW Std Deviation (28.0-62.0) fl RDW Coeff of [place] (11.0-15.0) % Plt Count (150-400) K/uL MPV (7.40-12.00) fL Neut % (Auto) (48.0-80.0) % Lymph % (Auto) (16.0-40.0) % [place] % (Auto) (0.0-15.0) % Eos % (Auto) (0.0-7.0) % Baso % (Auto) (0.0-1.5) % Neut # (Auto) (1.4-5.7) K/uL Lymph # (Auto) (0.6-2.4) K/uL [place] # (Auto) (0.0-0.8) K/uL Eos # (Auto) (0.0-0.7) K/uL Baso # (Auto) (0.0-0.1) K/uL Add Manual Diff Neutrophils % (Manual) (48.0-80.0) % Band Neutrophils % % Lymphocytes % (Manual) (16.0-40.0) % Monocytes % (Manual) (0.0-15.0) % Eosinophils % (Manual) (0.0-7.0) % Basophils % (Manual) (0.0-1.5) % Nucleated RBC % /100WBC Absolute Seg Neuts (1.4-5.7) Band Neutrophils # Lymphocytes # (Manual) (0.6-2.4) Monocytes # (Manual) (0.0-0.8) Eosinophils # (Manual) (0.0-0.7) Basophils # (Manual) (0.0-0.1) Nucleated RBCs # K/uL ABG pH (7.35-7.45) ABG pCO2 (35-45) mmHG ABG pO2 (75-100) mmHG ABG HCO3 (22-26) mEq/L ABG Total CO2 ABG Base Excess (-2.0-2.0) Lactate 1.1 (0.20-2.00) mmol/L Sodium (136-145) mmol/L Potassium (3.5-5.1) mmol/L Chloride (98-107) mmol/L Carbon Dioxide (21.0-32.0) mmol/L BUN (7.0-18.0) mg/dL Creatinine (0.6-1.0) mg/dL Est Cr Clr Drug Dosing Estimated GFR (MDRD) ml/min Glucose (74-106) mg/dL POC Glucose 230 H (60-110) mg/dL Calcium (8.5-10.1) mg/dL Total Bilirubin (0.2-1.0) mg/dL AST (15-37) IU/L ALT (14-63) IU/L Alkaline Phosphatase (46-116) U/L Troponin I (0.000-0.056) ng/mL Total Protein (6.4-8.2) g/dL Albumin (3.4-5.0) g/dL Globulin (2.6-4.0) g/dL Albumin/Globulin Ratio (0.9-1.6) Urine Color YELLOW Urine Appearance CLEAR Urine pH 5.5 (5.0-8.0) Ur Specific [place] 1.025 (1.001-1.035) Urine Protein 30 H (NEGATIVE) mg/dL Urine Glucose (UA) NEGATIVE (NEGATIVE) mg/dL Urine Ketones 15 H (NEGATIVE) mg/dL Urine Occult Blood NEGATIVE (NEGATIVE) Urine Nitrite NEGATIVE (NEGATIVE) Urine Bilirubin SMALL H (NEGATIVE) Urine Ictotest NEGATIVE Urine Urobilinogen 0.2 (<2.0) EU/dL Ur Leukocyte Esterase TRACE H (NEGATIVE) Urine RBC RARE (0-2/HPF) Urine WBC 15-20 (0-5/HPF) Ur Epithelial Cells FEW (NONE-FEW) Urine Bacteria 1+ H (NEGATIVE) Urine Mucus LIGHT (NONE-MOD) Urine Yeast MODERATE 06/30/18 07/01/18 07/01/18 Range/Units 14:13 05:05 05:05 WBC 9.21 (4.0-11.0) K/uL RBC 3.64 L (4.30-5.90) M/uL Hgb 10.5 L (12.0-16.0) g/dL Hct 32.8 L (36.0-46.0) % MCV 90.1 (80.0-98.0) fL MCH 28.8 (27.0-32.0) pg MCHC 32.0 (31.0-37.0) g/dL RDW Std Deviation 46.4 (28.0-62.0) fl RDW Coeff of [place] 14 (11.0-15.0) % Plt Count 211 (150-400) K/uL MPV 10.90 (7.40-12.00) fL Neut % (Auto) 66.5 (48.0-80.0) % Lymph % (Auto) 19.0 (16.0-40.0) % [place] % (Auto) 12.6 (0.0-15.0) % Eos % (Auto) 1.6 (0.0-7.0) % Baso % (Auto) 0.3 (0.0-1.5) % Neut # (Auto) 6.1 H (1.4-5.7) K/uL Lymph # (Auto) 1.8 (0.6-2.4) K/uL [place] # (Auto) 1.2 H (0.0-0.8) K/uL Eos # (Auto) 0.2 (0.0-0.7) K/uL Baso # (Auto) 0.0 (0.0-0.1) K/uL Add Manual Diff Neutrophils % (Manual) (48.0-80.0) % Band Neutrophils % % Lymphocytes % (Manual) (16.0-40.0) % Monocytes % (Manual) (0.0-15.0) % Eosinophils % (Manual) (0.0-7.0) % Basophils % (Manual) (0.0-1.5) % Nucleated RBC % 0.0 /100WBC Absolute Seg Neuts (1.4-5.7) Band Neutrophils # Lymphocytes # (Manual) (0.6-2.4) Monocytes # (Manual) (0.0-0.8) Eosinophils # (Manual) (0.0-0.7) Basophils # (Manual) (0.0-0.1) Nucleated RBCs # 0 K/uL ABG pH (7.35-7.45) ABG pCO2 (35-45) mmHG ABG pO2 (75-100) mmHG ABG HCO3 (22-26) mEq/L ABG Total CO2 ABG Base Excess (-2.0-2.0) Lactate (0.20-2.00) mmol/L Sodium 140 (136-145) mmol/L Potassium 3.6 (3.5-5.1) mmol/L Chloride 104 (98-107) mmol/L Carbon Dioxide 27.4 (21.0-32.0) mmol/L BUN 10 (7.0-18.0) mg/dL Creatinine 0.8 (0.6-1.0) mg/dL Est Cr Clr Drug Dosing 47.71 Estimated GFR (MDRD) > 60.0 ml/min Glucose 282 H (74-106) mg/dL POC Glucose 372 H (60-110) mg/dL Calcium 8.6 (8.5-10.1) mg/dL Total Bilirubin (0.2-1.0) mg/dL AST (15-37) IU/L ALT (14-63) IU/L Alkaline Phosphatase (46-116) U/L Troponin I (0.000-0.056) ng/mL Total Protein (6.4-8.2) g/dL Albumin (3.4-5.0) g/dL Globulin (2.6-4.0) g/dL Albumin/Globulin Ratio (0.9-1.6) Urine Color Urine Appearance Urine pH (5.0-8.0) Ur Specific [place] (1.001-1.035) Urine Protein (NEGATIVE) mg/dL Urine Glucose (UA) (NEGATIVE) mg/dL Urine Ketones (NEGATIVE) mg/dL Urine Occult Blood (NEGATIVE) Urine Nitrite (NEGATIVE) Urine Bilirubin (NEGATIVE) Urine Ictotest Urine Urobilinogen (<2.0) EU/dL Ur Leukocyte Esterase (NEGATIVE) Urine RBC (0-2/HPF) Urine WBC (0-5/HPF) Ur Epithelial Cells (NONE-FEW) Urine Bacteria (NEGATIVE) Urine Mucus (NONE-MOD) Urine Yeast Med Orders - Current: Current Medications Acetaminophen (Tylenol) 650 mg PO Q4H PRN PRN Reason: Pain (Mild 1-3)/fever Amlodipine Besylate (Norvasc) 5 mg PO DAILY ON LICENSE OF [facility] Last Admin: 07/01/18 08:24 Dose: Not Given Aspirin (Aspirin) 81 mg PO DAILY ON LICENSE OF [facility] Last Admin: 07/01/18 08:24 Dose: Not Given Carisoprodol (Soma) 350 mg PO TID PRN PRN Reason: Muscle Spasm Clopidogrel Bisulfate (Plavix) 75 mg PO DAILY ON LICENSE OF [facility] Last Admin: 07/01/18 08:25 Dose: Not Given Docusate Sodium (Colace) 100 mg PO BID PRN PRN Reason: Constipation Doxycycline Hyclate (Vibramycin) 100 mg PO DAILY ON LICENSE OF [facility] Last Admin: 07/01/18 08:25 Dose: Not Given Enoxaparin Sodium (Lovenox) 40 mg SUBCUT Q24H ON LICENSE OF [facility] Last Admin: 06/30/18 18:07 Dose: 40 mg Fludrocortisone Acetate (Florinef) 0.1 mg PO ASDIRECTED ON LICENSE OF [facility] Sodium Chloride (Normal Saline) 1,000 mls @ 100 mls/hr IV ASDIRECTED ON LICENSE OF [facility] Last Admin: 07/01/18 03:42 Dose: 100 mls/hr Ceftriaxone Sodium 1 gm/ (Sodium Chloride) 50 mls @ 100 mls/hr IV Q24H ON LICENSE OF [facility] Stop: 07/02/18 09:29 Last Admin: 07/01/18 08:22 Dose: 100 mls/hr Lisinopril (Prinivil) 10 mg PO DAILY ON LICENSE OF [facility] Last Admin: 07/01/18 08:25 Dose: Not Given Ondansetron HCl (Zofran) 4 mg IVPUSH Q6H PRN PRN Reason: Nausea/Vomiting Ondansetron HCl (Zofran) 4 mg PO ASDIRECTED PRN PRN Reason: Nausea Oxycodone HCl (Oxycodone) 5 mg PO Q4H PRN PRN Reason: Pain (moderate 4-6) Pantoprazole Sodium (Protonix) 40 mg PO DAILY ON LICENSE OF [facility] Last Admin: 07/01/18 08:25 Dose: Not Given Insulin Aspart ( (Fiasp) 100 Units/Ml) 0 each SUBCUT WITHMEALSANDBED PRN PRN Reason: Hyperglycemia Acetaminophen With Codeine [ Acetaminophen-Cod #4 ] 1 each PO Q4H PRN PRN Reason: Pain Propranolol HCl (Inderal) 10 mg PO TID ON LICENSE OF [facility] Last Admin: 07/01/18 06:23 Dose: Not Given Rosuvastatin Calcium (Crestor) 20 mg PO BEDTIME ON LICENSE OF [facility] Last Admin: 06/30/18 22:20 Dose: Not Given Sodium Bicarbonate (Sodium Bicarbonate) 650 mg PO BIDMEALS ON LICENSE OF [facility] Last Admin: 07/01/18 08:24 Dose: Not Given Discontinued Medications Al Hydroxide/Mg Hydroxide 15 ml/ Metoclopramide HCl 5 mg/Lidocaine HCl 5 ml 0 ml PO ONETIME ONE Stop: 06/30/18 09:01 Last Admin: 06/30/18 09:11 Dose: 30 each Enoxaparin Sodium (Lovenox) 40 mg SUBCUT Q24H ON LICENSE OF [facility] Last Admin: 06/30/18 18:02 Dose: Not Given Sodium Chloride (Normal Saline) 1,000 mls @ 999 mls/hr IV .BOLUS ONE Stop: 06/30/18 10:00 Last Admin: 06/30/18 09:10 Dose: 999 mls/hr Ceftriaxone Sodium/Dextrose 1 (gm/ Premix) 50 mls @ 100 mls/hr IV ONETIME ONE Stop: 06/30/18 12:44 Last Admin: 06/30/18 12:30 Dose: 100 mls/hr Ceftriaxone Sodium 1 gm/ (Sodium Chloride) 50 mls @ 100 mls/hr IV Q24H ON LICENSE OF [facility] Stop: 07/02/18 09:29 Ceftriaxone Sodium 1 gm/ (Sodium Chloride) 50 mls @ 100 mls/hr IV Q24H ON LICENSE OF [facility] Stop: 07/01/18 13:29 Insulin Aspart ( (Fiasp) 100 Units/Ml) 0 each SUBCUT WITHMEALSANDBED PRN PRN Reason: Hyperglycemia Ondansetron HCl (Zofran) 4 mg IVPUSH ONETIME ONE Stop: 06/30/18 09:01 Last Admin: 06/30/18 09:11 Dose: 4 mg - Exam Quality Assessment: Denies: Supplemental Oxygen General: Reports: Alert, Oriented, Cooperative, No Acute Distress HEENT: Reports: Pupils Equal, Pupils Reactive, EOMI Neck: Reports: Supple, Trachea Midline Lungs: Reports: Clear to Auscultation, Normal Respiratory Effort Cardiovascular: Reports: Regular Rate, Regular Rhythm GI/Abdominal Exam: Normal Bowel Sounds, Soft, Non-Tender, No Organomegaly, No Distention (Female) Exam: Deferred Rectal (Female) Exam: Deferred Back Exam: Reports: Normal Inspection, Full Range of Motion Extremities: Normal Inspection, Normal Range of Motion, No Pedal Edema Skin: Reports: Warm, Dry, Intact Neurological: Reports: No New Focal Deficit, Normal Gait Psy/Mental Status: Reports: Alert, Normal Affect, Normal Mood
[2018-07-01] MEDS ORDERED: amLODIPine 5 MG Tab PO SCH (09:00)
[2018-07-01] MEDS ORDERED: Clopidogrel 75 MG Tab PO SCH (09:00)
[2018-07-01] MEDS ORDERED: Pantoprazole 40 MG Tab.CR PO SCH (09:00)
[2018-07-01] MEDS ORDERED: Doxycycline 100 MG Cap PO SCH (09:00)
[2018-07-01] MEDS ORDERED: Aspirin 81 MG Tab.Chew PO SCH (09:00)
[2018-07-01] MEDS ORDERED: Lisinopril 10 MG Tab PO SCH (09:00)
[2018-07-01] MEDS ORDERED: cefTRIAXone 1 GM in Sodium Chloride 0.9% 50 ML IV SCH ×4 (09:00)
[2018-07-01] MEDS ORDERED: Ondansetron 4 MG Tab PO PRN (10:45)
== END 2018-07-01 10:15 | disposition home or self-care (01) ==
LOC: MW.ED 08:55 → MW.MS 12:34
PROVIDERS: ADMIT Internal Medicine; ATTEND Internal Medicine
DX: K52.9 Noninfective gastroenteritis and colitis, unspecified (principal); E86.0 Dehydration; E87.5 Hyperkalemia; D72.829 Elevated white blood cell count, unspecified; E10.9 Type 1 diabetes mellitus without complications; N39.0 Urinary tract infection, site not specified; Z87.891 Personal history of nicotine dependence; Z79.899 Other long term (current) drug therapy; Z79.82 Long term (current) use of aspirin; Z79.02 Long term (current) use of antithrombotics/antiplatelets; Z79.2 Long term (current) use of antibiotics
CPT/HCPCS: 36415; 36600; 80048; 80053; 81001; 82803; 82962; 83605; 84484; 85025; 87040; 87086; 93005; 96361; 96365; 96375; 99285; A9270; J0696; J1650; J2405; J7040; J7050; 96372; 96376; G0378

== ENCOUNTER 2018-11-14 09:05 | Observation (INO) | payer MEDICARE, MEDICAID ==
[2018-11-14] MEDS ORDERED: Morphine 2 MG/ML Syringe IVPUSH ONE ×2 (09:12→10:05)
--- NOTE | 2018-11-14 09:15 | EDM.PDOC ---
ED HPI GENERAL MEDICAL PROBLEM - General Chief Complaint: Abdominal Pain Stated Complaint: LOWER ADOMINAL PAIN Time Seen by Provider: 11/14/18 09:14 Source of Information: Reports: Patient - History of Present Illness INITIAL COMMENTS - FREE TEXT/NARRATIVE: HISTORY AND PHYSICAL: History of present illness: [Patient presents with abdominal pain in the lower quadrants increasing in severity over the last 24 hours multiple episodes of vomiting and small loose stools] Review of systems: As per history of present illness and below otherwise all systems reviewed and negative. Past medical history: As per history of present illness and as reviewed below otherwise noncontributory. Surgical history: As per history of present illness and as reviewed below otherwise noncontributory. Social history: No reported history of drug or alcohol abuse. Family history: As per history of present illness and as reviewed below otherwise noncontributory. Physical exam: HEENT: Atraumatic, normocephalic, pupils reactive, negative for conjunctival pallor or scleral icterus, mucous membranes moist, throat clear, neck supple, nontender, trachea midline. Lungs: Clear to auscultation, breath sounds equal bilaterally, chest nontender. Heart: S1S2, regular, negative for clicks, rubs, or JVD. Abdomen: Soft, nondistended, nontender. Negative for masses or hepatosplenomegaly. Negative for costovertebral tenderness. Pelvis: Stable nontender. Genitourinary: Deferred. Rectal: Deferred. Extremities: Atraumatic, negative for cords or calf pain. Neurovascular unremarkable. Neuro: Awake, alert, oriented. Cranial nerves II through XII unremarkable. Cerebellum unremarkable. Motor and sensory unremarkable throughout. Exam nonfocal. Diagnostics: [CBC CMP UA troponi lipase EKG CT abdomen pelvis with contrast Therapeutics: [Normal saline Morphine] Proton X Zofran Impression: Small bowel obstruction [Abdominal pain Chronic history of baseline] Definitive disposition and diagnosis as appropriate pending reevaluation and review of above. lower abd pain Pain Score (Numeric/FACES): 10 - Related Data Allergies Allergy/AdvReac Type Severity Reaction Status Date / Time No Known Allergies Allergy Verified 11/14/18 09:06 Home Meds: Home Meds Acetaminophen with Codeine [Acetaminophen-Cod #4] 1 - 2 tab PO Q4HR PRN [History] Aspirin 81 mg PO DAILY 01/18/15 [History] Fludrocortisone [Florinef] 0.1 mg PO ASDIRECTED 01/18/15 [History] Insulin Glarg,Human.Rec.Analog [LantUS Solostar] 9 units SQ DAILY 01/18/15 [ History] Propranolol HCl 10 mg PO TID 01/18/15 [History] Sodium Bicarbonate 1 tab PO BIDMEALS 01/18/15 [History] amLODIPine [Norvasc] 1 tab PO DAILY 01/18/15 [History] Insulin Aspart [NovoLOG] 0 unit SUBCUT TIDAC pen 01/19/15 [Rx] Carisoprodol 1 tab PO TID PRN 01/21/18 [History] Clopidogrel Bisulfate [Clopidogrel] 1 tab PO DAILY 01/21/18 [History] Lisinopril 1 tab PO DAILY 01/21/18 [History] Ondansetron HCl [Zofran] 1 tab PO ASDIRECTED PRN 01/21/18 [History] Pantoprazole [ProTONIX] 1 tab PO DAILY 01/21/18 [History] Rosuvastatin Calcium 20 mg PO BEDTIME 01/21/18 [History] Triamcinolone Acetonide [Triamcinolone Acetonide 0.1% Crm] 0 mg .XX BID [History] Doxycycline Hyclate 100 mg PO DAILY 06/30/18 [History] Patient's Own Medication [Ptom] 0 each SUBCUT WITHMEALSANDBED PRN each [Rx] Past Medical History HEENT History: Reports: None Cardiovascular History: Reports: None Respiratory History: Reports: None Gastrointestinal History: Reports: None 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: 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 History: Reports: None Neurological History: Reports: None Psychiatric History: Reports: None Endocrine/Metabolic History: Reports: Diabetes, Type I Other Endocrine/Metabolic History: hyperkalemia Hematologic History: Reports: None Immunologic History: Reports: None Oncologic (Cancer) History: Reports: None Dermatologic History: Reports: Other (See Below) - Infectious Disease History Infectious Disease History: Reports: None - Past Surgical History Cardiovascular Surgical History: Reports: Other (See Below) Other Cardiovascular Surgeries/Procedures: stents x 2 GI Surgical History: Reports: Other (See Below) Female Surgical History: Reports: Section 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 Surgical History: Reports: Shoulder Surgery Social & Family History - Family History Family Medical History: Noncontributory - Caffeine Use Caffeine Use: Reports: Coffee, Tea ED ROS GENERAL - Review of Systems Review Of Systems: See Below ED EXAM, GENERAL - Physical Exam Exam: See Below Course - Vital Signs Last Recorded V/S: Last Vital Signs Temp 97.3 F 11/14/18 09:07 Pulse 77 11/14/18 09:07 Resp 16 11/14/18 09:07 BP 161/67 H 11/14/18 09:07 Pulse Ox 96 11/14/18 09:07 - Orders/Labs/Meds Orders: Active Orders 24 hr Category Date Time Status EKG Documentation Completion [RC] STAT Care 11/14/18 09:13 Active CDIFF TOX A+B [OP] Stat Lab 11/14/18 09:13 Ordered CULTURE STOOL + CAMPY+SHIGATOX [RM] Stat Lab 11/14/18 09:12 Ordered CULTURE URINE [RM] Stat Lab 11/14/18 10:35 Received OCCULT BLOOD DIAGNOSTIC [OP] Stat Lab 11/14/18 09:13 Ordered OVA & PARASITES BY IMMUNOASSAY [MREF] Stat Lab 11/14/18 09:13 Ordered Sodium Chloride 0.9% [Normal Saline] 1,000 ml Med 11/14/18 09:15 Active IV STAT Isolation [COMM] Stat Oth 11/14/18 09:13 Ordered Medication Orders Sodium Chloride (Normal Saline) 1,000 mls @ 125 mls/hr IV STAT MIKHAIL Last Admin: 11/14/18 09:26 Dose: 125 mls/hr Labs: Laboratory Tests 11/14/18 11/14/18 11/14/18 Range/Units 09:13 09:13 10:35 WBC 17.04 H (4.0-11.0) K/uL RBC 4.41 (4.30-5.90) M/uL Hgb 12.4 (12.0-16.0) g/dL Hct 38.1 (36.0-46.0) % MCV 86.4 (80.0-98.0) fL MCH 28.1 (27.0-32.0) pg MCHC 32.5 (31.0-37.0) g/dL RDW Std Deviation 45.3 (28.0-62.0) fl RDW Coeff of Hesham 15 (11.0-15.0) % Plt Count 417 H (150-400) K/uL MPV 10.40 (7.40-12.00) fL Neut % (Auto) 86.4 H (48.0-80.0) % Lymph % (Auto) 7.5 L (16.0-40.0) % [place] % (Auto) 5.3 (0.0-15.0) % Eos % (Auto) 0.6 (0.0-7.0) % Baso % (Auto) 0.2 (0.0-1.5) % Neut # (Auto) 14.7 H (1.4-5.7) K/uL Lymph # (Auto) 1.3 (0.6-2.4) K/uL [place] # (Auto) 0.9 H (0.0-0.8) K/uL Eos # (Auto) 0.1 (0.0-0.7) K/uL Baso # (Auto) 0.0 (0.0-0.1) K/uL Nucleated RBC % 0.0 /100WBC Nucleated RBCs # 0 K/uL Sodium 138 (136-145) mmol/L Potassium 4.6 (3.5-5.1) mmol/L Chloride 101 (98-107) mmol/L Carbon Dioxide 30.8 (21.0-32.0) mmol/L BUN 12 (7.0-18.0) mg/dL Creatinine 0.8 (0.6-1.0) mg/dL Est Cr Clr Drug Dosing 50.12 mL/min Estimated GFR (MDRD) > 60.0 ml/min Glucose 287 H (74-106) mg/dL Calcium 9.2 (8.5-10.1) mg/dL Total Bilirubin 0.6 (0.2-1.0) mg/dL AST 22 (15-37) IU/L ALT 17 (14-63) IU/L Alkaline Phosphatase 152 H (46-116) U/L Troponin I < 0.050 (0.000-0.056) ng/mL Total Protein 7.8 (6.4-8.2) g/dL Albumin 3.4 (3.4-5.0) g/dL Globulin 4.4 H (2.6-4.0) g/dL Albumin/Globulin Ratio 0.8 L (0.9-1.6) Lipase 34 L (73-393) U/L Urine Color YELLOW Urine Appearance CLEAR Urine pH 7.5 (5.0-8.0) Ur Specific [place] 1.010 (1.001-1.035) Urine Protein NEGATIVE (NEGATIVE) mg/dL Urine Glucose (UA) 500 H (NEGATIVE) mg/dL Urine Ketones 15 H (NEGATIVE) mg/dL Urine Occult Blood NEGATIVE (NEGATIVE) Urine Nitrite NEGATIVE (NEGATIVE) Urine Bilirubin NEGATIVE (NEGATIVE) Urine Urobilinogen 0.2 (<2.0) EU/dL Ur Leukocyte Esterase TRACE H (NEGATIVE) Urine RBC 0-1 (0-2/HPF) Urine WBC 8-12 (0-5/HPF) Ur Epithelial Cells FEW (NONE-FEW) Urine Bacteria FEW (NEGATIVE) Urine Mucus LIGHT (NONE-MOD) Urine Yeast MODERATE Meds: Medications Generic Name Dose Route Start Last Admin Trade Name Freq PRN Reason Stop Dose Admin Sodium Chloride 1,000 mls @ 125 mls/hr 11/14/18 09:15 11/14/18 09:26 Normal Saline IV 125 mls/hr STAT MIKHAIL Administration Discontinued Medications Generic Name Dose Route Start Last Admin Trade Name Freq PRN Reason Stop Dose Admin Sodium Chloride Confirm 11/14/18 11:18 11/14/18 11:24 Normal Saline Administered 11/14/18 11:19 20 mls/hr Dose Administration 20 mls @ as directed .ROUTE .STK-MED ONE Iopamidol 54 ml 11/14/18 10:24 11/14/18 10:25 Isovue Multipack-370 (76%) IVPUSH 11/14/18 10:25 54 ml ONETIME STA Administration Morphine Sulfate 2 mg 11/14/18 09:12 11/14/18 09:26 Morphine IVPUSH 11/14/18 09:13 2 mg ONETIME ONE Administration Morphine Sulfate 2 mg 11/14/18 10:05 11/14/18 10:11 Morphine IVPUSH 11/14/18 10:06 2 mg ONETIME ONE Administration Ondansetron HCl 8 mg 11/14/18 09:20 11/14/18 09:26 Zofran IVPUSH 11/14/18 09:21 8 mg ONETIME ONE Administration Pantoprazole Sodium 80 mg 11/14/18 11:12 11/14/18 11:24 Protonix Iv IVPUSH 11/14/18 11:13 80 mg .BOLUS ONE Administration Departure - Departure Time of Disposition: 11:37 Disposition: Refer to Observation Condition: Poor Clinical Impression: Small bowel obstruction - Discharge Information Referrals: PCP,Unknown [Primary Care Provider] - Forms: ED Department Discharge - My Orders Last 24 Hours: My Active Orders 11/14/18 09:12 CULTURE STOOL + CAMPY+SHIGATOX [RM] Stat 11/14/18 09:13 EKG Documentation Completion [RC] STAT CDIFF TOX A+B [OP] Stat OCCULT BLOOD DIAGNOSTIC [OP] Stat OVA & PARASITES BY IMMUNOASSAY [MREF] Stat Isolation [COMM] Stat 11/14/18 09:15 Sodium Chloride 0.9% [Normal Saline] 1,000 ml IV STAT 11/14/18 10:35 CULTURE URINE [RM] Stat - Assessment/Plan Last 24 Hours: My Active Orders 11/14/18 09:12 CULTURE STOOL + CAMPY+SHIGATOX [RM] Stat 11/14/18 09:13 EKG Documentation Completion [RC] STAT CDIFF TOX A+B [OP] Stat OCCULT BLOOD DIAGNOSTIC [OP] Stat OVA & PARASITES BY IMMUNOASSAY [MREF] Stat Isolation [COMM] Stat 11/14/18 09:15 Sodium Chloride 0.9% [Normal Saline] 1,000 ml IV STAT 11/14/18 10:35 CULTURE URINE [RM] Stat
[2018-11-14] MEDS ORDERED: Ondansetron 4 MG/2 ML SDV IVPUSH ONE (09:20)
[2018-11-14] MEDS: Sodium Chloride 0.9% 1,000 ML IV SCH ×2 (09:26→16:28)
[2018-11-14 09:53] LABS: CHLORIDE,CL 101 mmol/L (98-107); SODIUM,NA 138 mmol/L (136-145)
[2018-11-14] MEDS ORDERED: Iopamidol 755 MG/ML 500 ML Multipack Bottle IVPUSH STA (10:24)
[2018-11-14] MEDS ORDERED: Pantoprazole 40 MG Vial IVPUSH ONE (11:12)
[2018-11-14] MEDS ORDERED: Sodium Chloride 0.9% 20 ML ONE (11:18)
--- NOTE | 2018-11-14 11:27 | CT ---
INDICATION: Upper abdominal pain. Vomiting. TECHNIQUE: CT scan of the abdomen and pelvis with 54 cc of Isovue-370 given intravenously. FINDINGS: The lung bases show consolidation of the lower portions of the right middle lobe and lingula. Small focal area of centrilobular micronodules in the posterior aspect of the left lower lobe. No focal abnormalities identified in the visualized portions of the liver, pancreas, adrenal glands, and kidneys. No hydronephrosis. Nonobstructing nephroliths in both kidneys. No obstructing uroliths. Partial gastrectomy with a gastrojejunostomy. Dilated loops of mid small bowel with a transition point best seen on image 48 of series 203. Edema throughout the mesentery. Cholecystectomy. No retroperitoneal, pelvic sidewall, or mesenteric adenopathy. Atherosclerotic vascular calcifications. Osteopenia. IMPRESSION: 1. Small-bowel obstruction with dilated loops of mid small bowel. 2. Edema throughout the mesentery may be due to a nonspecific enteritis. 3. Consolidation of the lower portions of the right middle lobe and lingula along with a small focal area of centrilobular micronodules in the left lower lobe. This could be due to an atypical infectious process. Dictated by Lane Mayo MD @ 11/14/2018 11:25:18 AM Dictated by: Lane Mayo MD @ 11/14/2018 11:25:27 (Electronically Signed)
[2018-11-14] MEDS ORDERED: Metoclopramide 10 MG/2 ML SDV IV ONE (11:38)
[2018-11-14] MEDS ORDERED: cefTRIAXone 1 GM in Premix Bag 1 BAG IV ONE (11:41)
[2018-11-14] MEDS ORDERED: Ondansetron 4 MG/2 ML SDV IVPUSH PRN (14:10)
--- NOTE | 2018-11-14 14:22 | PCM.HP ---
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 She reports she typically has some amount of abdominal pain along with nausea and vomiting secondary to complications from her gastrectomy but she felt this was definitely different this morning. She reports having no flatus but having smaller than normal loose BMs. Denies fevers or chills, reports some mild shortness of breath and productive cough. She denies chest pain. No urinary symptoms. Reports BS have been controlled. In the ED leukocytosis noted at 17,040, platelets 417, Na 4.6. CT of abd/pelvis revealed SBO with dilated loops of bowel, with edema through mesentery, possible unspecific enteritis. SHe was treated with Rocephin, Morphine, IVFs, and Protonix. She will be admitted observation for SBO. . lower abd pain Pain Score (Numeric/FACES): 10 - Related Data Allergies/Adverse Reactions: Allergies Allergy/AdvReac Type Severity Reaction Status Date / Time No Known Allergies Allergy Verified 11/14/18 09:06 Home Medications: Home Meds Acetaminophen with Codeine [Acetaminophen-Cod #4] 1 - 2 tab PO Q4HR PRN [History] Aspirin 81 mg PO DAILY 01/18/15 [History] Fludrocortisone [Florinef] 0.1 mg PO ASDIRECTED 01/18/15 [History] Insulin Glarg,Human.Rec.Analog [LantUS Solostar] 9 units SQ DAILY 01/18/15 [ History] Propranolol HCl 10 mg PO TID 01/18/15 [History] Sodium Bicarbonate 1 tab PO BIDMEALS 01/18/15 [History] amLODIPine [Norvasc] 1 tab PO DAILY 01/18/15 [History] Insulin Aspart [NovoLOG] 0 unit SUBCUT TIDAC pen 01/19/15 [Rx] Carisoprodol 1 tab PO TID PRN 01/21/18 [History] Clopidogrel Bisulfate [Clopidogrel] 1 tab PO DAILY 01/21/18 [History] Lisinopril 1 tab PO DAILY 01/21/18 [History] Ondansetron HCl [Zofran] 1 tab PO ASDIRECTED PRN 01/21/18 [History] Pantoprazole [ProTONIX] 1 tab PO DAILY 01/21/18 [History] Rosuvastatin Calcium 20 mg PO BEDTIME 01/21/18 [History] Triamcinolone Acetonide [Triamcinolone Acetonide 0.1% Crm] 0 mg .XX BID [History] Doxycycline Hyclate 100 mg PO DAILY 06/30/18 [History] Patient's Own Medication [Ptom] 0 each SUBCUT WITHMEALSANDBED PRN each [Rx] Past Medical History HEENT History: Reports: None Cardiovascular History: Reports: Hypertension, ID, Stents Other Cardiovascular History: Myocardial infarction 2013 Respiratory History: Reports: COPD Gastrointestinal History: Reports: PUD Other Gastrointestinal History: Gastroparesis 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: Reports: None Neurological History: Reports: Neuropathy, Diabetic Psychiatric History: Reports: None Endocrine/Metabolic History: Reports: Diabetes, Type I Hematologic History: Reports: None Immunologic History: Reports: None Oncologic (Cancer) History: Reports: None Dermatologic History: Reports: Other (See Below) Other Dermatologic History: necrobiosis lipoidica - Infectious Disease History Infectious Disease History: Reports: None - Past Surgical History Cardiovascular Surgical History: Reports: Other (See Below) Other Cardiovascular Surgeries/Procedures: stents x 2 GI Surgical History: Reports: Appendectomy, Other (See Below) Other GI Surgeries/Procedures: partial gastrectomy Female Surgical History: Reports: Section, Hysterectomy 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 Surgical History: Reports: Shoulder Surgery Social & Family History - Family History Family Medical History: Noncontributory - Tobacco Use Smoking Status *Q: Former Smoker Used Tobacco, but Quit: Yes Month/Year Tobacco Last Used: March 2017 Second Hand Smoke Exposure: No - Caffeine Use Caffeine Use: Reports: None - Alcohol Use Days Per Week of Alcohol Use: 7 Number of Drinks Per Day: 1 Total Drinks Per Week: 7 Date of Last Drink: 11/12/18 Time of Last Drink: 18:00 - Recreational Drug Use Recreational Drug Use: No H&P Review of Systems - Review of Systems: Review Of Systems: See Below General: Reports: Malaise. Denies: Fever, Chills HEENT: Reports: No Symptoms. Denies: Headaches, Visual Changes Pulmonary: Reports: No Symptoms. Denies: Shortness of Breath Cardiovascular: Reports: No Symptoms. Denies: Chest Pain, Edema Gastrointestinal: Reports: Abdominal Pain, Diarrhea, Decreased Appetite, Nausea , Vomiting. Denies: Black Stool, Bloody Stool 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: Reports: No Symptoms Skin: Reports: Wound (L lopez skin ulceration, R lopez dry patchy ucleration) Hematologic/Lymphatic: Reports: No Symptoms Immunologic: Reports: No Symptoms Exam - Exam Exam: See Below - Vital Signs Vital Signs: Last Vital Signs Temp 99 F 11/14/18 12:50 Pulse 78 11/14/18 12:50 Resp 18 11/14/18 12:50 BP 134/64 11/14/18 12:50 Pulse Ox 95 11/14/18 12:50 Weight: 42.547 kg - Exam General: Alert, Oriented, Cooperative HEENT: No: Mucosa Moist & [place] (dry) Lungs: Clear to Auscultation, Normal Respiratory Effort Cardiovascular: Regular Rate, Regular Rhythm GI/Abdominal Exam: Normal Bowel Sounds, Soft, Non-Tender, No Distention, No Mass. No: Guarding, Rigid, Rebound, Hepatomegaly Extremities: Normal Inspection, Normal Range of Motion, Non-Tender, No Pedal Edema Skin: Warm, Dry, Wound (uclerations to bilateral shins, at baseline from skin disorder. no S/S infection) Neuro Extensive - Mental Status: Alert, Oriented x3 Psychiatric: Alert, Normal Affect, Normal Mood - Patient Data Lab Results Last 24 hrs: Laboratory Results - last 24 hr 11/14/18 11/14/18 11/14/18 Range/Units 09:13 09:13 10:35 WBC 17.04 H (4.0-11.0) K/uL RBC 4.41 (4.30-5.90) M/uL Hgb 12.4 (12.0-16.0) g/dL Hct 38.1 (36.0-46.0) % MCV 86.4 (80.0-98.0) fL MCH 28.1 (27.0-32.0) pg MCHC 32.5 (31.0-37.0) g/dL RDW Std Deviation 45.3 (28.0-62.0) fl RDW Coeff of Hesham 15 (11.0-15.0) % Plt Count 417 H (150-400) K/uL MPV 10.40 (7.40-12.00) fL Neut % (Auto) 86.4 H (48.0-80.0) % Lymph % (Auto) 7.5 L (16.0-40.0) % [place] % (Auto) 5.3 (0.0-15.0) % Eos % (Auto) 0.6 (0.0-7.0) % Baso % (Auto) 0.2 (0.0-1.5) % Neut # (Auto) 14.7 H (1.4-5.7) K/uL Lymph # (Auto) 1.3 (0.6-2.4) K/uL [place] # (Auto) 0.9 H (0.0-0.8) K/uL Eos # (Auto) 0.1 (0.0-0.7) K/uL Baso # (Auto) 0.0 (0.0-0.1) K/uL Nucleated RBC % 0.0 /100WBC Nucleated RBCs # 0 K/uL Sodium 138 (136-145) mmol/L Potassium 4.6 (3.5-5.1) mmol/L Chloride 101 (98-107) mmol/L Carbon Dioxide 30.8 (21.0-32.0) mmol/L BUN 12 (7.0-18.0) mg/dL Creatinine 0.8 (0.6-1.0) mg/dL Est Cr Clr Drug Dosing 50.12 mL/min Estimated GFR (MDRD) > 60.0 ml/min Glucose 287 H (74-106) mg/dL Calcium 9.2 (8.5-10.1) mg/dL Total Bilirubin 0.6 (0.2-1.0) mg/dL AST 22 (15-37) IU/L ALT 17 (14-63) IU/L Alkaline Phosphatase 152 H (46-116) U/L Troponin I < 0.050 (0.000-0.056) ng/mL Total Protein 7.8 (6.4-8.2) g/dL Albumin 3.4 (3.4-5.0) g/dL Globulin 4.4 H (2.6-4.0) g/dL Albumin/Globulin Ratio 0.8 L (0.9-1.6) Lipase 34 L (73-393) U/L Urine Color YELLOW Urine Appearance CLEAR Urine pH 7.5 (5.0-8.0) Ur Specific [place] 1.010 (1.001-1.035) Urine Protein NEGATIVE (NEGATIVE) mg/dL Urine Glucose (UA) 500 H (NEGATIVE) mg/dL Urine Ketones 15 H (NEGATIVE) mg/dL Urine Occult Blood NEGATIVE (NEGATIVE) Urine Nitrite NEGATIVE (NEGATIVE) Urine Bilirubin NEGATIVE (NEGATIVE) Urine Urobilinogen 0.2 (<2.0) EU/dL Ur Leukocyte Esterase TRACE H (NEGATIVE) Urine RBC 0-1 (0-2/HPF) Urine WBC 8-12 (0-5/HPF) Ur Epithelial Cells FEW (NONE-FEW) Urine Bacteria FEW (NEGATIVE) Urine Mucus LIGHT (NONE-MOD) Urine Yeast MODERATE Result Diagrams: 11/14/18 09:13 11/14/18 09:13 - Problem List (1) Small bowel obstruction SNOMED Code(s): 828003171 ICD Code: K56.609 - UNSP INTESTNL OBST, UNSP TO PARTIAL VERSUS COMPLETE OBST Status: Acute Current Visit: Yes (2) Dehydration SNOMED Code(s): 80724400 ICD Code: E86.0 - DEHYDRATION Status: Acute Priority: High Current Visit: No (3) Diarrhea SNOMED Code(s): 11890092 ICD Code: R19.7 - DIARRHEA, UNSPECIFIED Status: Acute Current Visit: No (4) CAP (community acquired pneumonia) SNOMED Code(s): 255778743 ICD Code: J18.9 - PNEUMONIA, UNSPECIFIED ORGANISM Status: Acute Current Visit: Yes Qualifiers: Laterality: right (5) Leukocytosis SNOMED Code(s): 770827268, 096741918 ICD Code: D72.829 - ELEVATED WHITE BLOOD CELL COUNT, UNSPECIFIED Status: Acute Priority: High Current Visit: No Qualifiers: Leukocytosis type: bandemia Qualified Code(s): D72.825 - Bandemia (6) HTN (hypertension) SNOMED Code(s): 82130947 ICD Code: I10 - ESSENTIAL (PRIMARY) HYPERTENSION Status: Chronic Current Visit: Yes (7) CAD (coronary artery disease) SNOMED Code(s): 97957410 ICD Code: I25.10 - ATHSCL HEART DISEASE OF [place] CORONARY ARTERY W/O ANG PCTRS Status: Chronic Current Visit: Yes (8) Chronic pain SNOMED Code(s): 43345368 ICD Code: G89.29 - OTHER CHRONIC PAIN Status: Chronic Current Visit: Yes (9) Diabetes mellitus type 1, controlled, insulin dependent SNOMED Code(s): 33624640 ICD Code: E10.9 - TYPE 1 DIABETES MELLITUS WITHOUT COMPLICATIONS Status: Chronic Priority: High Current Visit: No (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 SNOMED Code(s): 58590700 ICD Code: E11.620 - TYPE 2 DIABETES MELLITUS WITH DIABETIC DERMATITIS Status: Chronic Priority: High Current Visit: No Problem List Initiated/Reviewed/Updated: Yes Orders Last 24hrs: Active Orders 24 hr Category Date Time Status Admission Status [Patient Status] [ADT] Stat ADT 11/14/18 11:41 Active Ambulate [RC] ASDIRECTED Care 11/14/18 14:08 Ordered EKG Documentation Completion [RC] STAT Care 11/14/18 09:13 Active Intake and Output [RC] QSHIFT Care 11/14/18 14:09 Ordered Notify Provider Consults [RC] ASDIRECTED Care 11/14/18 14:14 Ordered Oxygen Therapy [RC] PRN Care 11/14/18 14:09 Ordered Up to Chair [RC] ASDIRECTED Care 11/14/18 14:08 Ordered VTE/DVT Education [RC] PER UNIT ROUTINE Care 11/14/18 14:09 Ordered Vital Signs [RC] Q4H Care 11/14/18 14:09 Ordered Consult to Physician [CONS] Routine Cons 11/14/18 14:10 Ordered Nothing Per Oral Diet [DIET] Diet 11/14/18 Dinner Ordered BASIC METABOLIC PANEL,BMP [CHEM] AM Lab 11/15/18 05:11 Ordered CBC WITH AUTO DIFF [HEME] AM Lab 11/15/18 05:11 Ordered CDIFF TOX A+B [OP] Stat Lab 11/14/18 09:13 Ordered CULTURE BLOOD [BC] Stat Lab 11/14/18 12:38 Received CULTURE BLOOD [BC] Stat Lab 11/14/18 12:48 Received CULTURE STOOL + CAMPY+SHIGATOX [RM] Stat Lab 11/14/18 09:12 Ordered CULTURE URINE [RM] Stat Lab 11/14/18 10:35 Received OCCULT BLOOD DIAGNOSTIC [OP] Stat Lab 11/14/18 09:13 Ordered OVA & PARASITES BY IMMUNOASSAY [MREF] Stat Lab 11/14/18 09:13 Ordered Azithromycin [Zithromax] 500 mg Med 11/14/18 14:30 Ordered Sodium Chloride 0.9% [Normal Saline] 250 ml IV Q24H Insulin Aspart [NovoLOG] Med 11/14/18 14:15 Ordered See Protocol SUBCUT Q6H Morphine Med 11/14/18 14:08 Ordered 3 mg IVPUSH Q2H PRN Ondansetron [Zofran] Med 11/14/18 14:10 Ordered 4 mg IVPUSH Q4H PRN Pantoprazole [ProTONIX IV] Med 11/14/18 21:00 Ordered 40 mg IV Q12HR Sodium Chloride 0.9% [Normal Saline] 1,000 ml Med 11/14/18 09:15 Active IV STAT cefTRIAXone [Rocephin in Dextrose,Iso-Osm 1 GM/50 ML] 1 Med 11/15/18 12:00 Ordered gm Premix Bag 1 bag IV Q24H Blood Culture x2 Reflex Set [OM.PC] Stat Oth 11/14/18 11:54 Ordered Isolation [COMM] Stat Oth 11/14/18 09:13 Ordered Resuscitation Status Routine Resus Stat 11/14/18 14:08 Ordered Medication Orders Sodium Chloride (Normal Saline) 1,000 mls @ 125 mls/hr IV STAT MIKHAIL Last Admin: 11/14/18 09:26 Dose: 125 mls/hr Azithromycin 500 mg/ Sodium (Chloride) 250 mls @ 250 mls/hr IV Q24H MIKHAIL Ceftriaxone Sodium/Dextrose 1 (gm/ Premix) 50 mls @ 100 mls/hr IV Q24H MIKHAIL Insulin Aspart (Novolog) 0 unit SUBCUT Q6H MIKHAIL; Protocol Morphine Sulfate (Morphine) 3 mg IVPUSH Q2H PRN PRN Reason: Pain (severe 7-10) Ondansetron HCl (Zofran) 4 mg IVPUSH Q4H PRN PRN Reason: Nausea Pantoprazole Sodium (Protonix Iv) 40 mg IV Q12HR [facility] Assessment/Plan Comment:: This 63 year old female admitted with SBO and CAP 1. SBO: Due to extensive medical history consulted Dr Downs, who knows patient history well. Agree with Conservative management for now. NPO, IVFs overnight. Monitor pain. Does take Tylenol #4 at home QID for pain. 2. CAP: Noted to have infiltrate on CT. Will cover with Rocephin and Azithromycin IV for now due to NPO status. Monitor labwork in AM. 3. COPD: Continue inhalers. Nebulizers PRN. 4. HTN: Monitor. Stable currently. 5. DM Type 1: Monitor BS every 6 hrs while NPO. Hold Lantus for now due to NPO status. Monitor. VTE prophylaxis: Heparin Dispo: 2 days.
[2018-11-14] MEDS ORDERED: Azithromycin 500 MG in Sodium Chloride 0.9% 250 ML IV SCH (14:30)
[2018-11-14] MEDS: Morphine 4 MG/ML Syringe IVPUSH PRN ×4 (14:42→23:56)
[2018-11-14] MEDS: Insulin Aspart 100 Units/ML 3 ML Pen SUBCUT SCH ×2 (14:52→20:28)
[2018-11-14] MEDS: Azithromycin 500 MG in Sodium Chloride 0.9% 250 ML IV SCH (15:13)
--- NOTE | 2018-11-14 17:14 | PCM.CONS ---
H&P History of Present Illness - General Date of Service: 11/14/18 Admit Problem/Dx: Admission Diagnosis/Problem Admission Diagnosis/Problem Small bowel obstruction Source of Information: Patient History Limitations: Reports: No Limitations - History of Present Illness Initial Comments - Free Text/Narative: 63 y/o female who presented to the ER today c/o abdominal pain and minimal BMs w /o flatus. Has never had anything quite like this in the past. Associated with N/V. N/V not unusual for her in the morning secondary to long standing diabetic gastropathy and gastroparesis. Onset of Symptoms: Reports: Today Symptom Onset Time: 04:00 Duration of Symptoms: Reports: Hour(s):, Colic, Recurring Location: Reports: Abdomen Quality: Reports: Ache, Pressure, Stabbing Severity: Moderate Improves with: Reports: Rest Worsens with: Reports: None Context: Reports: Sick Contact Associated Symptoms: Reports: Loss of Appetite, Malaise, Nausea/Vomiting. Denies: Fever/Chills, Headaches lower abd pain Pain Score (Numeric/FACES): 10 - Related Data Allergies/Adverse Reactions: Allergies Allergy/AdvReac Type Severity Reaction Status Date / Time No Known Allergies Allergy Verified 11/14/18 09:06 Home Medications: Home Meds Acetaminophen with Codeine [Acetaminophen-Cod #4] 1 - 2 tab PO Q4HR PRN [History] Aspirin 81 mg PO DAILY 01/18/15 [History] Fludrocortisone [Florinef] 0.1 mg PO ASDIRECTED 01/18/15 [History] Insulin Glarg,Human.Rec.Analog [LantUS Solostar] 9 units SQ DAILY 01/18/15 [ History] Propranolol HCl 10 mg PO TID 01/18/15 [History] Sodium Bicarbonate 1 tab PO BIDMEALS 01/18/15 [History] amLODIPine [Norvasc] 1 tab PO DAILY 01/18/15 [History] Insulin Aspart [NovoLOG] 0 unit SUBCUT TIDAC pen 01/19/15 [Rx] Carisoprodol 1 tab PO TID PRN 01/21/18 [History] Clopidogrel Bisulfate [Clopidogrel] 1 tab PO DAILY 01/21/18 [History] Lisinopril 1 tab PO DAILY 01/21/18 [History] Ondansetron HCl [Zofran] 1 tab PO ASDIRECTED PRN 01/21/18 [History] Pantoprazole [ProTONIX] 1 tab PO DAILY 01/21/18 [History] Rosuvastatin Calcium 20 mg PO BEDTIME 01/21/18 [History] Triamcinolone Acetonide [Triamcinolone Acetonide 0.1% Crm] 0 mg .XX BID [History] Doxycycline Hyclate 100 mg PO DAILY 06/30/18 [History] Patient's Own Medication [Ptom] 0 each SUBCUT WITHMEALSANDBED PRN each [Rx] Past Medical History HEENT History: Reports: None Cardiovascular History: Reports: NV, Stents Other Cardiovascular History: Myocardial infarction 2013 Respiratory History: Reports: COPD Gastrointestinal History: Reports: Other (See Below) Other Gastrointestinal History: abdominal surgery SILVERER History: Reports: 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 History: Reports: None Neurological History: Reports: None, Neuropathy, Diabetic Psychiatric History: Reports: None Endocrine/Metabolic History: Reports: Diabetes, Type I Other Endocrine/Metabolic History: hyperkalemia Hematologic History: Reports: None Immunologic History: Reports: None Oncologic (Cancer) History: Reports: None Dermatologic History: Reports: Other (See Below) - Infectious Disease History Infectious Disease History: Reports: None - Past Surgical History Cardiovascular Surgical History: Reports: Other (See Below) Other Cardiovascular Surgeries/Procedures: stents x 2 GI Surgical History: Reports: Appendectomy, Other (See Below) Other GI Surgeries/Procedures: 48% of stomach taken out Female Surgical History: Reports: Section, Hysterectomy 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 Surgical History: Reports: Shoulder Surgery Social & Family History - Family History Family Medical History: Noncontributory - Tobacco Use Smoking Status *Q: Former Smoker Used Tobacco, but Quit: Yes Month/Year Tobacco Last Used: March 2017 Second Hand Smoke Exposure: No - Caffeine Use Caffeine Use: Reports: None - Alcohol Use Days Per Week of Alcohol Use: 7 Number of Drinks Per Day: 1 Total Drinks Per Week: 7 Date of Last Drink: 11/12/18 Time of Last Drink: 18:00 - Recreational Drug Use Recreational Drug Use: No H&P Review of Systems - Review of Systems: Review Of Systems: See Below General: Reports: Malaise, Weakness, Fatigue, Decreased Appetite. Denies: Fever , Night Sweats, Weight Loss HEENT: Reports: No Symptoms Pulmonary: Reports: Shortness of Breath (COPD). Denies: Wheezing, Cough, Sputum , Hemoptysis Cardiovascular: Denies: Chest Pain Gastrointestinal: Reports: Abdominal Pain, Anorexia, Diarrhea, Decreased Appetite, Nausea, Vomiting. 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 Denies: Cyanosis , Jaundice, Mottled Psychiatric: Reports: No Symptoms Neurological: Reports: No Symptoms Hematologic/Lymphatic: Reports: No Symptoms Immunologic: Reports: No Symptoms Exam - Exam Exam: See Below - Vital Signs Vital Signs: Last Vital Signs Temp 99.1 F 11/14/18 16:00 Pulse 80 11/14/18 16:00 Resp 18 11/14/18 16:00 BP 128/51 L 11/14/18 16:00 Pulse Ox 93 L 11/14/18 16:00 Weight: 93 lb 12.8 oz - Exam Quality Assessment: Supplemental Oxygen, DVT Prophylaxis. No: Central Line/PICC , Urinary Catheter, Skin Breakdown, Restraints General: Alert, Oriented, Cooperative, Mild Distress HEENT: Conjunctiva Clear, EACs Clear, Pupils Equal, Pupils Reactive. No: Scleral Icterus Neck: Supple, Trachea Midline Lungs: Clear to Auscultation, Normal Respiratory Effort Cardiovascular: Regular Rate, Regular Rhythm, Normal S1, Normal S2. No: Tachycardia GI/Abdominal Exam: Soft, Non-Tender, No Distention, No Mass, Abnormal Bowel Sounds (hypoactive, no high pitched sounds or rushes.) (Female) Exam: Deferred Rectal (Female) Exam: Deferred Back Exam: Normal Inspection Extremities: Normal Inspection Skin: Warm, Dry, Intact Neurological: Cranial Nerves Intact Neuro Extensive - Mental Status: Alert, Oriented x3, Normal Mood/Affect Psychiatric: Alert, Normal Affect, Normal Mood - Patient Data Lab Results Last 24 hrs: Laboratory Results - last 24 hr 11/14/18 11/14/18 11/14/18 Range/Units 09:13 09:13 10:35 WBC 17.04 H (4.0-11.0) K/uL RBC 4.41 (4.30-5.90) M/uL Hgb 12.4 (12.0-16.0) g/dL Hct 38.1 (36.0-46.0) % MCV 86.4 (80.0-98.0) fL MCH 28.1 (27.0-32.0) pg MCHC 32.5 (31.0-37.0) g/dL RDW Std Deviation 45.3 (28.0-62.0) fl RDW Coeff of [place] 15 (11.0-15.0) % Plt Count 417 H (150-400) K/uL MPV 10.40 (7.40-12.00) fL Neut % (Auto) 86.4 H (48.0-80.0) % Lymph % (Auto) 7.5 L (16.0-40.0) % [place] % (Auto) 5.3 (0.0-15.0) % Eos % (Auto) 0.6 (0.0-7.0) % Baso % (Auto) 0.2 (0.0-1.5) % Neut # (Auto) 14.7 H (1.4-5.7) K/uL Lymph # (Auto) 1.3 (0.6-2.4) K/uL [place] # (Auto) 0.9 H (0.0-0.8) K/uL Eos # (Auto) 0.1 (0.0-0.7) K/uL Baso # (Auto) 0.0 (0.0-0.1) K/uL Nucleated RBC % 0.0 /100WBC Nucleated RBCs # 0 K/uL Sodium 138 (136-145) mmol/L Potassium 4.6 (3.5-5.1) mmol/L Chloride 101 (98-107) mmol/L Carbon Dioxide 30.8 (21.0-32.0) mmol/L BUN 12 (7.0-18.0) mg/dL Creatinine 0.8 (0.6-1.0) mg/dL Est Cr Clr Drug Dosing 50.12 mL/min Estimated GFR (MDRD) > 60.0 ml/min Glucose 287 H (74-106) mg/dL POC Glucose (60-110) mg/dL Calcium 9.2 (8.5-10.1) mg/dL Total Bilirubin 0.6 (0.2-1.0) mg/dL AST 22 (15-37) IU/L ALT 17 (14-63) IU/L Alkaline Phosphatase 152 H (46-116) U/L Troponin I < 0.050 (0.000-0.056) ng/mL Total Protein 7.8 (6.4-8.2) g/dL Albumin 3.4 (3.4-5.0) g/dL Globulin 4.4 H (2.6-4.0) g/dL Albumin/Globulin Ratio 0.8 L (0.9-1.6) Lipase 34 L (73-393) U/L Urine Color YELLOW Urine Appearance CLEAR Urine pH 7.5 (5.0-8.0) Ur Specific [place] 1.010 (1.001-1.035) Urine Protein NEGATIVE (NEGATIVE) mg/dL Urine Glucose (UA) 500 H (NEGATIVE) mg/dL Urine Ketones 15 H (NEGATIVE) mg/dL Urine Occult Blood NEGATIVE (NEGATIVE) Urine Nitrite NEGATIVE (NEGATIVE) Urine Bilirubin NEGATIVE (NEGATIVE) Urine Urobilinogen 0.2 (<2.0) EU/dL Ur Leukocyte Esterase TRACE H (NEGATIVE) Urine RBC 0-1 (0-2/HPF) Urine WBC 8-12 (0-5/HPF) Ur Epithelial Cells FEW (NONE-FEW) Urine Bacteria FEW (NEGATIVE) Urine Mucus LIGHT (NONE-MOD) Urine Yeast MODERATE 11/14/18 Range/Units 14:40 WBC (4.0-11.0) K/uL RBC (4.30-5.90) M/uL Hgb (12.0-16.0) g/dL Hct (36.0-46.0) % MCV (80.0-98.0) fL MCH (27.0-32.0) pg MCHC (31.0-37.0) g/dL RDW Std Deviation (28.0-62.0) fl RDW Coeff of [place] (11.0-15.0) % Plt Count (150-400) K/uL MPV (7.40-12.00) fL Neut % (Auto) (48.0-80.0) % Lymph % (Auto) (16.0-40.0) % [place] % (Auto) (0.0-15.0) % Eos % (Auto) (0.0-7.0) % Baso % (Auto) (0.0-1.5) % Neut # (Auto) (1.4-5.7) K/uL Lymph # (Auto) (0.6-2.4) K/uL [place] # (Auto) (0.0-0.8) K/uL Eos # (Auto) (0.0-0.7) K/uL Baso # (Auto) (0.0-0.1) K/uL Nucleated RBC % /100WBC Nucleated RBCs # K/uL Sodium (136-145) mmol/L Potassium (3.5-5.1) mmol/L Chloride (98-107) mmol/L Carbon Dioxide (21.0-32.0) mmol/L BUN (7.0-18.0) mg/dL Creatinine (0.6-1.0) mg/dL Est Cr Clr Drug Dosing mL/min Estimated GFR (MDRD) ml/min Glucose (74-106) mg/dL POC Glucose 257 H (60-110) mg/dL Calcium (8.5-10.1) mg/dL Total Bilirubin (0.2-1.0) mg/dL AST (15-37) IU/L ALT (14-63) IU/L Alkaline Phosphatase (46-116) U/L Troponin I (0.000-0.056) ng/mL Total Protein (6.4-8.2) g/dL Albumin (3.4-5.0) g/dL Globulin (2.6-4.0) g/dL Albumin/Globulin Ratio (0.9-1.6) Lipase (73-393) U/L Urine Color Urine Appearance Urine pH (5.0-8.0) Ur Specific [place] (1.001-1.035) Urine Protein (NEGATIVE) mg/dL Urine Glucose (UA) (NEGATIVE) mg/dL Urine Ketones (NEGATIVE) mg/dL Urine Occult Blood (NEGATIVE) Urine Nitrite (NEGATIVE) Urine Bilirubin (NEGATIVE) Urine Urobilinogen (<2.0) EU/dL Ur Leukocyte Esterase (NEGATIVE) Urine RBC (0-2/HPF) Urine WBC (0-5/HPF) Ur Epithelial Cells (NONE-FEW) Urine Bacteria (NEGATIVE) Urine Mucus (NONE-MOD) Urine Yeast Result Diagrams: 11/14/18 09:13 11/14/18 09:13 Consult PN Assessment/Plan Procedures: Procedures AIRWAY INHALATION TREATMENT (01/18/15) ASSAY ALKALINE PHOSPHATASE (04/01/18) ASSAY ALKALINE PHOSPHATASES (04/01/18) ASSAY BLD/SERUM CHOLESTEROL (09/30/16) ASSAY OF AMYLASE (02/14/16) ASSAY OF CK (CPK) (02/14/16) ASSAY OF FREE THYROXINE (07/27/14) ASSAY OF LACTIC ACID (06/30/18) ASSAY OF LIPASE (01/21/18) ASSAY OF PROTEIN SERUM (12/29/17) ASSAY OF TROPONIN QUANT (06/30/18) ASSAY THYROID STIM HORMONE (07/27/14) BLOOD CULTURE FOR BACTERIA (06/30/18) BLOOD GASES ANY COMBINATION (06/30/18) CARDIAC REHAB/MONITOR (06/17/16) CHEST X-RAY 1 VIEW FRONTAL (02/14/16) CHEST X-RAY 2VW FRONTAL&LATL (06/25/14) COMPLETE CBC W/AUTO DIFF WBC (06/30/18) COMPREHEN METABOLIC PANEL (06/30/18) CREATINE MB FRACTION (02/14/16) CT ANGIO ABDOMINAL ARTERIES (12/26/15) CT ANGIO LWR EXTR W/O&W/DYE (12/10/14) DRAIN/INJ JOINT/BURSA W/O US (09/26/15) DRUG TEST PRSMV DIR OPT OBS (08/26/16) ELECTROCARDIOGRAM TRACING (06/30/18) EMERGENCY DEPT VISIT (06/30/18) EMERGENCY DEPT VISIT (01/21/18) EMERGENCY DEPT VISIT (02/14/16) EMERGENCY DEPT VISIT (02/19/14) EVALUATE PT USE OF INHALER (01/18/15) EXTRACRANIAL BILAT STUDY (11/05/17) GLUCOSE BLOOD TEST (06/30/18) GLYCOSYLATED HEMOGLOBIN TEST (06/30/18) HEPATIC FUNCTION PANEL (10/07/18) HEPATITIS C AB TEST (06/03/16) HYDRATE IV INFUSION ADD-ON (06/30/18) IMMUNIZATION ADMIN (02/19/14) IMMUNIZATION ADMIN EACH ADD (02/26/15) LIPID PANEL (06/30/18) LOWER EXTREMITY STUDY (11/26/14) MANUAL THERAPY 1/> REGIONS (02/28/15) MEDICAL NUTRITION INDIV IN (01/18/15) METABOLIC PANEL TOTAL CA (06/30/18) MR ANGIOGRAPHY HEAD W/O DYE (06/01/16) MRI NECK SPINE W/O DYE (12/10/14) OFFICE/OUTPATIENT VISIT EST (06/30/18) OFFICE/OUTPATIENT VISIT EST (12/29/17) OFFICE/OUTPATIENT VISIT EST (07/06/16) OFFICE/OUTPATIENT VISIT EST (05/28/16) OFFICE/OUTPATIENT VISIT EST (03/09/16) OFFICE/OUTPATIENT VISIT EST (02/26/16) OFFICE/OUTPATIENT VISIT EST (01/31/15) OFFICE/OUTPATIENT VISIT EST (12/06/14) OFFICE/OUTPATIENT VISIT EST (08/29/14) OFFICE/OUTPATIENT VISIT EST (01/22/14) OFFICE/OUTPATIENT VISIT EST (11/22/13) OFFICE/OUTPATIENT VISIT EST (09/22/13) OFFICE/OUTPATIENT VISIT NEW (11/04/15) PCV13 VACCINE IM (02/26/15) POLYSOM 6/> YRS 4/> STUART (11/29/17) PROTEIN E-PHORESIS SERUM (12/29/17) PROTHROMBIN TIME (02/14/16) PT EVALUATION (01/09/15) ROUTINE VENIPUNCTURE (10/07/18) RPR S/N/AX/GEN/TRNK 2.5CM/< (02/19/14) TDAP VACCINE 7 YRS/> IM (02/26/15) TEST FOR ACETONE/KETONES (01/18/15) THER/PROPH/DIAG INJ IV PUSH (01/21/18) THER/PROPH/DIAG INJ SC/IM (06/30/18) THER/PROPH/DIAG IV INF INIT (06/30/18) THERAPEUTIC EXERCISES (02/28/15) THROMBOPLASTIN TIME PARTIAL (01/15/15) TTE W/DOPPLER COMPLETE (11/05/17) TX/PRO/DX INJ NEW DRUG ADDON (06/30/18) TX/PRO/DX INJ SAME DRUG EMAIL MANAGER (06/30/18) UR ALBUMIN SEMIQUANTITATIVE (09/27/17) URINALYSIS AUTO W/SCOPE (06/30/18) URINE CULTURE/COLONY COUNT (06/30/18) VITAMIN D 25 HYDROXY (08/24/18) WITHDRAWAL OF ARTERIAL BLOOD (06/30/18) X-RAY EXAM CHEST 1 VIEW (01/21/18) X-RAY EXAM KNEE 4 OR MORE (03/02/17) X-RAY EXAM NECK SPINE 2-3 VW (12/06/14) X-RAY EXAM OF SHOULDER (12/06/14) (1) Small bowel obstruction SNOMED Code(s): 965911553 Code(s): K56.609 - UNSP INTESTNL OBST, UNSP TO PARTIAL VERSUS COMPLETE OBST Current Visit: Yes (2) Diarrhea SNOMED Code(s): 64746070 Code(s): R19.7 - DIARRHEA, UNSPECIFIED Current Visit: No (3) GERD (gastroesophageal reflux disease) SNOMED Code(s): 722111636 Code(s): K21.9 - GASTRO-ESOPHAGEAL REFLUX DISEASE WITHOUT ESOPHAGITIS Current Visit: No Qualifiers: Esophagitis presence: without esophagitis Qualified Code(s): K21.9 - Gastro -esophageal reflux disease without esophagitis Problem List Initiated/Reviewed/Updated: Yes Plan: Recommend very conservative therapy for her. With her COPD and severe diabetes , if surgery is required, she may benefit from transfer to a larger facility with more specialties available. Thank you.
[2018-11-14] MEDS: Pantoprazole 40 MG Vial IV SCH (20:29)
[2018-11-14] MEDS ORDERED: Albuterol/Ipratropium 3.0-0.5 MG/3 ML Neb Soln NEB PRN (20:40)
[2018-11-15] MEDS: Sodium Chloride 0.9% 1,000 ML IV SCH ×3 (00:33→18:19)
[2018-11-15] MEDS: Insulin Aspart 100 Units/ML 3 ML Pen SUBCUT SCH ×4 (02:10→16:07)
[2018-11-15] MEDS: Morphine 4 MG/ML Syringe IVPUSH PRN ×2 (05:17→08:33)
[2018-11-15 08:01] LABS: CHLORIDE,CL 107 mmol/L (98-107); SODIUM,NA 143 mmol/L (136-145)
--- NOTE | 2018-11-15 08:05 | PCM.CONSN ---
- General Info Date of Service: 11/15/18 Subjective Update: Patient denies abdominal pain rating it a "0". States she did pass a small amount of flatus last night. No BM yet today. Functional Status: Reports: Pain Controlled (pain now is in her legs, not her abdomen.), Ambulating, Urinating. Denies: New Symptoms - Review of Systems General: Denies: Fever, Weakness, Fatigue, Malaise, Chills HEENT: Reports: No Symptoms Pulmonary: Denies: Shortness of Breath, Cough, Wheezing Cardiovascular: Reports: No Symptoms Gastrointestinal: Reports: Flatus (small amount last night). Denies: Abdominal Pain, Decreased Appetite, Diarrhea, Nausea, Vomiting Genitourinary: Reports: No Symptoms 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: Reports: No Symptoms Skin: Reports: No Symptoms Neurological: Reports: No Symptoms Psychiatric: Reports: No Symptoms - Patient Data Vitals - Most Recent: Last Vital Signs Temp 98.8 F 11/15/18 07:31 Pulse 79 11/15/18 07:31 Resp 18 11/15/18 07:31 BP 142/53 H 11/15/18 07:31 Pulse Ox 92 L 11/15/18 07:31 Weight - Most Recent: 93 lb 12.8 oz I&O - Last 24 Hours: Intake & Output 11/14/18 11/15/18 11/15/18 19:59 03:59 11:59 Intake Total 575 1461 Output Total 200 800 Balance 375 661 Lab Results Last 24 Hours: Laboratory Results - last 24 hr 11/14/18 11/14/18 11/14/18 Range/Units 09:13 09:13 10:35 WBC 17.04 H (4.0-11.0) K/uL RBC 4.41 (4.30-5.90) M/uL Hgb 12.4 (12.0-16.0) g/dL Hct 38.1 (36.0-46.0) % MCV 86.4 (80.0-98.0) fL MCH 28.1 (27.0-32.0) pg MCHC 32.5 (31.0-37.0) g/dL RDW Std Deviation 45.3 (28.0-62.0) fl RDW Coeff of Hesham 15 (11.0-15.0) % Plt Count 417 H (150-400) K/uL MPV 10.40 (7.40-12.00) fL Neut % (Auto) 86.4 H (48.0-80.0) % Lymph % (Auto) 7.5 L (16.0-40.0) % [place] % (Auto) 5.3 (0.0-15.0) % Eos % (Auto) 0.6 (0.0-7.0) % Baso % (Auto) 0.2 (0.0-1.5) % Neut # (Auto) 14.7 H (1.4-5.7) K/uL Lymph # (Auto) 1.3 (0.6-2.4) K/uL [place] # (Auto) 0.9 H (0.0-0.8) K/uL Eos # (Auto) 0.1 (0.0-0.7) K/uL Baso # (Auto) 0.0 (0.0-0.1) K/uL Nucleated RBC % 0.0 /100WBC Nucleated RBCs # 0 K/uL Sodium 138 (136-145) mmol/L Potassium 4.6 (3.5-5.1) mmol/L Chloride 101 (98-107) mmol/L Carbon Dioxide 30.8 (21.0-32.0) mmol/L BUN 12 (7.0-18.0) mg/dL Creatinine 0.8 (0.6-1.0) mg/dL Est Cr Clr Drug Dosing 50.12 mL/min Estimated GFR (MDRD) > 60.0 ml/min Glucose 287 H (74-106) mg/dL POC Glucose (60-110) mg/dL Calcium 9.2 (8.5-10.1) mg/dL Total Bilirubin 0.6 (0.2-1.0) mg/dL AST 22 (15-37) IU/L ALT 17 (14-63) IU/L Alkaline Phosphatase 152 H (46-116) U/L Troponin I < 0.050 (0.000-0.056) ng/mL Total Protein 7.8 (6.4-8.2) g/dL Albumin 3.4 (3.4-5.0) g/dL Globulin 4.4 H (2.6-4.0) g/dL Albumin/Globulin Ratio 0.8 L (0.9-1.6) Lipase 34 L (73-393) U/L Urine Color YELLOW Urine Appearance CLEAR Urine pH 7.5 (5.0-8.0) Ur Specific [place] 1.010 (1.001-1.035) Urine Protein NEGATIVE (NEGATIVE) mg/dL Urine Glucose (UA) 500 H (NEGATIVE) mg/dL Urine Ketones 15 H (NEGATIVE) mg/dL Urine Occult Blood NEGATIVE (NEGATIVE) Urine Nitrite NEGATIVE (NEGATIVE) Urine Bilirubin NEGATIVE (NEGATIVE) Urine Urobilinogen 0.2 (<2.0) EU/dL Ur Leukocyte Esterase TRACE H (NEGATIVE) Urine RBC 0-1 (0-2/HPF) Urine WBC 8-12 (0-5/HPF) Ur Epithelial Cells FEW (NONE-FEW) Urine Bacteria FEW (NEGATIVE) Urine Mucus LIGHT (NONE-MOD) Urine Yeast MODERATE 11/14/18 11/14/18 11/15/18 Range/Units 14:40 20:00 02:05 WBC (4.0-11.0) K/uL RBC (4.30-5.90) M/uL Hgb (12.0-16.0) g/dL Hct (36.0-46.0) % MCV (80.0-98.0) fL MCH (27.0-32.0) pg MCHC (31.0-37.0) g/dL RDW Std Deviation (28.0-62.0) fl RDW Coeff of Hesham (11.0-15.0) % Plt Count (150-400) K/uL MPV (7.40-12.00) fL Neut % (Auto) (48.0-80.0) % Lymph % (Auto) (16.0-40.0) % [place] % (Auto) (0.0-15.0) % Eos % (Auto) (0.0-7.0) % Baso % (Auto) (0.0-1.5) % Neut # (Auto) (1.4-5.7) K/uL Lymph # (Auto) (0.6-2.4) K/uL [place] # (Auto) (0.0-0.8) K/uL Eos # (Auto) (0.0-0.7) K/uL Baso # (Auto) (0.0-0.1) K/uL Nucleated RBC % /100WBC Nucleated RBCs # K/uL Sodium (136-145) mmol/L Potassium (3.5-5.1) mmol/L Chloride (98-107) mmol/L Carbon Dioxide (21.0-32.0) mmol/L BUN (7.0-18.0) mg/dL Creatinine (0.6-1.0) mg/dL Est Cr Clr Drug Dosing mL/min Estimated GFR (MDRD) ml/min Glucose (74-106) mg/dL POC Glucose 257 H 169 H 167 H (60-110) mg/dL Calcium (8.5-10.1) mg/dL Total Bilirubin (0.2-1.0) mg/dL AST (15-37) IU/L ALT (14-63) IU/L Alkaline Phosphatase (46-116) U/L Troponin I (0.000-0.056) ng/mL Total Protein (6.4-8.2) g/dL Albumin (3.4-5.0) g/dL Globulin (2.6-4.0) g/dL Albumin/Globulin Ratio (0.9-1.6) Lipase (73-393) U/L Urine Color Urine Appearance Urine pH (5.0-8.0) Ur Specific [place] (1.001-1.035) Urine Protein (NEGATIVE) mg/dL Urine Glucose (UA) (NEGATIVE) mg/dL Urine Ketones (NEGATIVE) mg/dL Urine Occult Blood (NEGATIVE) Urine Nitrite (NEGATIVE) Urine Bilirubin (NEGATIVE) Urine Urobilinogen (<2.0) EU/dL Ur Leukocyte Esterase (NEGATIVE) Urine RBC (0-2/HPF) Urine WBC (0-5/HPF) Ur Epithelial Cells (NONE-FEW) Urine Bacteria (NEGATIVE) Urine Mucus (NONE-MOD) Urine Yeast 11/15/18 Range/Units 07:31 WBC 11.81 H (4.0-11.0) K/uL RBC 3.76 L (4.30-5.90) M/uL Hgb 10.4 L (12.0-16.0) g/dL Hct 33.9 L (36.0-46.0) % MCV 90.2 (80.0-98.0) fL MCH 27.7 (27.0-32.0) pg MCHC 30.7 L (31.0-37.0) g/dL RDW Std Deviation 49.1 (28.0-62.0) fl RDW Coeff of Hesham 15 (11.0-15.0) % Plt Count 325 (150-400) K/uL MPV 10.40 (7.40-12.00) fL Neut % (Auto) 80.5 H (48.0-80.0) % Lymph % (Auto) 10.2 L (16.0-40.0) % [place] % (Auto) 8.6 (0.0-15.0) % Eos % (Auto) 0.4 (0.0-7.0) % Baso % (Auto) 0.3 (0.0-1.5) % Neut # (Auto) 9.5 H (1.4-5.7) K/uL Lymph # (Auto) 1.2 (0.6-2.4) K/uL [place] # (Auto) 1.0 H (0.0-0.8) K/uL Eos # (Auto) 0.1 (0.0-0.7) K/uL Baso # (Auto) 0.0 (0.0-0.1) K/uL Nucleated RBC % 0.0 /100WBC Nucleated RBCs # 0 K/uL Sodium (136-145) mmol/L Potassium (3.5-5.1) mmol/L Chloride (98-107) mmol/L Carbon Dioxide (21.0-32.0) mmol/L BUN (7.0-18.0) mg/dL Creatinine (0.6-1.0) mg/dL Est Cr Clr Drug Dosing mL/min Estimated GFR (MDRD) ml/min Glucose (74-106) mg/dL POC Glucose (60-110) mg/dL Calcium (8.5-10.1) mg/dL Total Bilirubin (0.2-1.0) mg/dL AST (15-37) IU/L ALT (14-63) IU/L Alkaline Phosphatase (46-116) U/L Troponin I (0.000-0.056) ng/mL Total Protein (6.4-8.2) g/dL Albumin (3.4-5.0) g/dL Globulin (2.6-4.0) g/dL Albumin/Globulin Ratio (0.9-1.6) Lipase (73-393) U/L Urine Color Urine Appearance Urine pH (5.0-8.0) Ur Specific [place] (1.001-1.035) Urine Protein (NEGATIVE) mg/dL Urine Glucose (UA) (NEGATIVE) mg/dL Urine Ketones (NEGATIVE) mg/dL Urine Occult Blood (NEGATIVE) Urine Nitrite (NEGATIVE) Urine Bilirubin (NEGATIVE) Urine Urobilinogen (<2.0) EU/dL Ur Leukocyte Esterase (NEGATIVE) Urine RBC (0-2/HPF) Urine WBC (0-5/HPF) Ur Epithelial Cells (NONE-FEW) Urine Bacteria (NEGATIVE) Urine Mucus (NONE-MOD) Urine Yeast Med Orders - Current: Current Medications Albuterol/Ipratropium (Duoneb 3.0-0.5 Mg/3 Ml) 3 ml NEB Q4HRRT PRN PRN Reason: SOB/wheezing Sodium Chloride (Normal Saline) 1,000 mls @ 125 mls/hr IV STAT [facility] Last Admin: 11/15/18 00:33 Dose: 125 mls/hr Ceftriaxone Sodium/Dextrose 1 (gm/ Premix) 50 mls @ 100 mls/hr IV Q24H [facility] Azithromycin 500 mg/ Sodium (Chloride) 250 mls @ 250 mls/hr IV Q24H [facility] Last Admin: 11/14/18 15:13 Dose: 250 mls/hr Insulin Aspart (Novolog) 0 unit SUBCUT Q6H [facility]; Protocol Last Admin: 11/15/18 02:10 Dose: 1 units Morphine Sulfate (Morphine) 3 mg IVPUSH Q2H PRN PRN Reason: Pain (severe 7-10) Last Admin: 11/15/18 05:17 Dose: 3 mg Ondansetron HCl (Zofran) 4 mg IVPUSH Q4H PRN PRN Reason: Nausea Pantoprazole Sodium (Protonix Iv) 40 mg IV Q12HR [facility] Last Admin: 11/14/18 20:29 Dose: 40 mg Discontinued Medications Sodium Chloride (Normal Saline) Confirm Administered Dose 20 mls @ as directed .ROUTE .STK-MED ONE Stop: 11/14/18 11:19 Last Admin: 11/14/18 11:24 Dose: 20 mls/hr Ceftriaxone Sodium/Dextrose 1 (gm/ Premix) 50 mls @ 100 mls/hr IV ONETIME ONE Stop: 11/14/18 12:10 Last Admin: 11/14/18 11:49 Dose: 100 mls/hr Azithromycin 500 mg/ Sodium (Chloride) 250 mls @ 250 mls/hr IV Q24H [facility] Last Admin: 11/14/18 15:16 Dose: Not Given Iopamidol (Isovue Multipack-370 (76%)) 54 ml IVPUSH ONETIME STA Stop: 11/14/18 10:25 Last Admin: 11/14/18 10:25 Dose: 54 ml Metoclopramide HCl (Reglan) 10 mg IV ONETIME ONE Stop: 11/14/18 11:39 Last Admin: 11/14/18 11:49 Dose: 10 mg Morphine Sulfate (Morphine) 2 mg IVPUSH ONETIME ONE Stop: 11/14/18 09:13 Last Admin: 11/14/18 09:26 Dose: 2 mg Morphine Sulfate (Morphine) 2 mg IVPUSH ONETIME ONE Stop: 11/14/18 10:06 Last Admin: 11/14/18 10:11 Dose: 2 mg Ondansetron HCl (Zofran) 8 mg IVPUSH ONETIME ONE Stop: 11/14/18 09:21 Last Admin: 11/14/18 09:26 Dose: 8 mg Pantoprazole Sodium (Protonix Iv) 80 mg IVPUSH .BOLUS ONE Stop: 11/14/18 11:13 Last Admin: 11/14/18 11:24 Dose: 80 mg - Exam General: Alert, Oriented, Cooperative, No Acute Distress HEENT: Pupils Equal, Pupils Reactive. No: Scleral Icterus Neck: Supple Lungs: Clear to Auscultation, Normal Respiratory Effort Cardiovascular: Regular Rate, Regular Rhythm GI/Abdominal Exam: Soft, Non-Tender, No Organomegaly, No Distention, No Mass, Abnormal Bowel Sounds (hypoactive). No: Guarding, Rigid, Rebound (Female) Exam: Deferred Back Exam: Normal Inspection Extremities: Normal Inspection Skin: Warm, Dry, Intact Psy/Mental Status: Alert, Normal Affect, Normal Mood Consult PN Assessment/Plan Procedures: Procedures AIRWAY INHALATION TREATMENT (01/18/15) ASSAY ALKALINE PHOSPHATASE (04/01/18) ASSAY ALKALINE PHOSPHATASES (04/01/18) ASSAY BLD/SERUM CHOLESTEROL (09/30/16) ASSAY OF AMYLASE (02/14/16) ASSAY OF CK (CPK) (02/14/16) ASSAY OF FREE THYROXINE (07/27/14) ASSAY OF LACTIC ACID (06/30/18) ASSAY OF LIPASE (01/21/18) ASSAY OF PROTEIN SERUM (12/29/17) ASSAY OF TROPONIN QUANT (06/30/18) ASSAY THYROID STIM HORMONE (07/27/14) BLOOD CULTURE FOR BACTERIA (06/30/18) BLOOD GASES ANY COMBINATION (06/30/18) CARDIAC REHAB/MONITOR (06/17/16) CHEST X-RAY 1 VIEW FRONTAL (02/14/16) CHEST X-RAY 2VW FRONTAL&LATL (06/25/14) COMPLETE CBC W/AUTO DIFF WBC (06/30/18) COMPREHEN METABOLIC PANEL (06/30/18) CREATINE MB FRACTION (02/14/16) CT ANGIO ABDOMINAL ARTERIES (12/26/15) CT ANGIO LWR EXTR W/O&W/DYE (12/10/14) DRAIN/INJ JOINT/BURSA W/O US (09/26/15) DRUG TEST PRSMV DIR OPT OBS (08/26/16) ELECTROCARDIOGRAM TRACING (06/30/18) EMERGENCY DEPT VISIT (06/30/18) EMERGENCY DEPT VISIT (01/21/18) EMERGENCY DEPT VISIT (02/14/16) EMERGENCY DEPT VISIT (02/19/14) EVALUATE PT USE OF INHALER (01/18/15) EXTRACRANIAL BILAT STUDY (11/05/17) GLUCOSE BLOOD TEST (06/30/18) GLYCOSYLATED HEMOGLOBIN TEST (06/30/18) HEPATIC FUNCTION PANEL (10/07/18) HEPATITIS C AB TEST (06/03/16) HYDRATE IV INFUSION ADD-ON (06/30/18) IMMUNIZATION ADMIN (02/19/14) IMMUNIZATION ADMIN EACH ADD (02/26/15) LIPID PANEL (06/30/18) LOWER EXTREMITY STUDY (11/26/14) MANUAL THERAPY 1/> REGIONS (02/28/15) MEDICAL NUTRITION INDIV IN (01/18/15) METABOLIC PANEL TOTAL CA (06/30/18) MR ANGIOGRAPHY HEAD W/O DYE (06/01/16) MRI NECK SPINE W/O DYE (12/10/14) OFFICE/OUTPATIENT VISIT EST (06/30/18) OFFICE/OUTPATIENT VISIT EST (12/29/17) OFFICE/OUTPATIENT VISIT EST (07/06/16) OFFICE/OUTPATIENT VISIT EST (05/28/16) OFFICE/OUTPATIENT VISIT EST (03/09/16) OFFICE/OUTPATIENT VISIT EST (02/26/16) OFFICE/OUTPATIENT VISIT EST (01/31/15) OFFICE/OUTPATIENT VISIT EST (12/06/14) OFFICE/OUTPATIENT VISIT EST (08/29/14) OFFICE/OUTPATIENT VISIT EST (01/22/14) OFFICE/OUTPATIENT VISIT EST (11/22/13) OFFICE/OUTPATIENT VISIT EST (09/22/13) OFFICE/OUTPATIENT VISIT NEW (11/04/15) PCV13 VACCINE IM (02/26/15) POLYSOM 6/> YRS 4/> STUART (11/29/17) PROTEIN E-PHORESIS SERUM (12/29/17) PROTHROMBIN TIME (02/14/16) PT EVALUATION (01/09/15) ROUTINE VENIPUNCTURE (10/07/18) RPR S/N/AX/GEN/TRNK 2.5CM/< (02/19/14) TDAP VACCINE 7 YRS/> IM (02/26/15) TEST FOR ACETONE/KETONES (01/18/15) THER/PROPH/DIAG INJ IV PUSH (01/21/18) THER/PROPH/DIAG INJ SC/IM (06/30/18) THER/PROPH/DIAG IV INF INIT (06/30/18) THERAPEUTIC EXERCISES (02/28/15) THROMBOPLASTIN TIME PARTIAL (01/15/15) TTE W/DOPPLER COMPLETE (11/05/17) TX/PRO/DX INJ NEW DRUG ADDON (06/30/18) TX/PRO/DX INJ SAME DRUG BUS ANALYST (06/30/18) UR ALBUMIN SEMIQUANTITATIVE (09/27/17) URINALYSIS AUTO W/SCOPE (06/30/18) URINE CULTURE/COLONY COUNT (06/30/18) VITAMIN D 25 HYDROXY (08/24/18) WITHDRAWAL OF ARTERIAL BLOOD (06/30/18) X-RAY EXAM CHEST 1 VIEW (01/21/18) X-RAY EXAM KNEE 4 OR MORE (03/02/17) X-RAY EXAM NECK SPINE 2-3 VW (12/06/14) X-RAY EXAM OF SHOULDER (12/06/14) (1) Small bowel obstruction SNOMED Code(s): 548336753 Code(s): K56.609 - UNSP INTESTNL OBST, UNSP TO PARTIAL VERSUS COMPLETE OBST Current Visit: Yes (2) Diarrhea SNOMED Code(s): 37878151 Code(s): R19.7 - DIARRHEA, UNSPECIFIED Current Visit: No (3) GERD (gastroesophageal reflux disease) SNOMED Code(s): 987839922 Code(s): K21.9 - GASTRO-ESOPHAGEAL REFLUX DISEASE WITHOUT ESOPHAGITIS Current Visit: No Qualifiers: Esophagitis presence: without esophagitis Qualified Code(s): K21.9 - Gastro -esophageal reflux disease without esophagitis Problem List Initiated/Reviewed/Updated: Yes Plan: Differential includes ileus vs SBO. Bowel sounds are hypoactive. Abdomen is very soft. Would get flat/upright abdomen today. Consider clear liquid diet later if she continues to do well.
[2018-11-15] MEDS: Pantoprazole 40 MG Vial IV SCH ×2 (08:35→20:43)
--- NOTE | 2018-11-15 09:25 | CR ---
INDICATION: EVAL SOB HISTORY: Small bowel obstruction. COMPARISON: CT of the abdomen and pelvis 11/14/2018. TECHNIQUE: Abdomen, 3 views. FINDINGS: There is a generalized paucity of abdominal bowel gas. Findings likely indicate fluid-filled loops of small bowel. No extraluminal gas. Pelvic phleboliths. No soft tissue mass by plain film. Airspace disease in the right middle lobe is subtle on plain radiographs. Surgical clips at the EG junction. IMPRESSION: 1. Paucity of abdominal bowel gas, which likely indicates fluid-filled loops of small bowel. 2. No extraluminal gas. Dictated by Anirudh Leal MD @ 11/15/2018 9:24:08 AM Dictated by: Anirudh Leal MD @ 11/15/2018 09:24:16 (Electronically Signed)
--- NOTE | 2018-11-15 11:19 | PCM.PN ---
- General Info Date of Service: 11/15/18 Admission Dx/Problem (Free Text): Admission Diagnosis/Problem Admission Diagnosis/Problem Small bowel obstruction Subjective Update: Doing much better today. No nausea or abdominal pain. Really would like to try ice chips. No chest pain. Dyspnea is improving. Functional Status: Reports: Pain Controlled, Ambulating, Urinating - Review of Systems General: Reports: No Symptoms. Denies: Fever, Weakness, Fatigue, Malaise Pulmonary: Reports: No Symptoms. Denies: Shortness of Breath, Pleuritic Chest Pain, Cough Cardiovascular: Reports: No Symptoms. Denies: Chest Pain Gastrointestinal: Reports: No Symptoms. Denies: Abdominal Pain, Nausea, Vomiting Genitourinary: Reports: No Symptoms. Denies: Dysuria, Frequency, Burning 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: Reports: Other (chornic leg pain) Skin: Reports: No Symptoms Neurological: Reports: No Symptoms Psychiatric: Reports: No Symptoms - Patient Data Vitals - Most Recent: Last Vital Signs Temp 98.8 F 11/15/18 07:31 Pulse 79 11/15/18 07:31 Resp 18 11/15/18 07:31 BP 142/53 H 11/15/18 07:31 Pulse Ox 92 L 11/15/18 07:31 Weight - Most Recent: 42.547 kg I&O - Last 24 Hours: Intake & Output 11/14/18 11/15/18 11/15/18 22:59 06:59 14:59 Intake Total 575 1461 Output Total 200 800 Balance 375 661 Lab Results Last 24 Hours: Laboratory Results - last 24 hr 11/14/18 11/14/18 11/15/18 Range/Units 14:40 20:00 02:05 WBC (4.0-11.0) K/uL RBC (4.30-5.90) M/uL Hgb (12.0-16.0) g/dL Hct (36.0-46.0) % MCV (80.0-98.0) fL MCH (27.0-32.0) pg MCHC (31.0-37.0) g/dL RDW Std Deviation (28.0-62.0) fl RDW Coeff of Hesham (11.0-15.0) % Plt Count (150-400) K/uL MPV (7.40-12.00) fL Neut % (Auto) (48.0-80.0) % Lymph % (Auto) (16.0-40.0) % [place] % (Auto) (0.0-15.0) % Eos % (Auto) (0.0-7.0) % Baso % (Auto) (0.0-1.5) % Neut # (Auto) (1.4-5.7) K/uL Lymph # (Auto) (0.6-2.4) K/uL [place] # (Auto) (0.0-0.8) K/uL Eos # (Auto) (0.0-0.7) K/uL Baso # (Auto) (0.0-0.1) K/uL Nucleated RBC % /100WBC Nucleated RBCs # K/uL Sodium (136-145) mmol/L Potassium (3.5-5.1) mmol/L Chloride (98-107) mmol/L Carbon Dioxide (21.0-32.0) mmol/L BUN (7.0-18.0) mg/dL Creatinine (0.6-1.0) mg/dL Est Cr Clr Drug Dosing mL/min Estimated GFR (MDRD) ml/min Glucose (74-106) mg/dL POC Glucose 257 H 169 H 167 H (60-110) mg/dL Calcium (8.5-10.1) mg/dL 11/15/18 11/15/18 11/15/18 Range/Units 07:31 07:31 08:45 WBC 11.81 H (4.0-11.0) K/uL RBC 3.76 L (4.30-5.90) M/uL Hgb 10.4 L (12.0-16.0) g/dL Hct 33.9 L (36.0-46.0) % MCV 90.2 (80.0-98.0) fL MCH 27.7 (27.0-32.0) pg MCHC 30.7 L (31.0-37.0) g/dL RDW Std Deviation 49.1 (28.0-62.0) fl RDW Coeff of Hesham 15 (11.0-15.0) % Plt Count 325 (150-400) K/uL MPV 10.40 (7.40-12.00) fL Neut % (Auto) 80.5 H (48.0-80.0) % Lymph % (Auto) 10.2 L (16.0-40.0) % [place] % (Auto) 8.6 (0.0-15.0) % Eos % (Auto) 0.4 (0.0-7.0) % Baso % (Auto) 0.3 (0.0-1.5) % Neut # (Auto) 9.5 H (1.4-5.7) K/uL Lymph # (Auto) 1.2 (0.6-2.4) K/uL [place] # (Auto) 1.0 H (0.0-0.8) K/uL Eos # (Auto) 0.1 (0.0-0.7) K/uL Baso # (Auto) 0.0 (0.0-0.1) K/uL Nucleated RBC % 0.0 /100WBC Nucleated RBCs # 0 K/uL Sodium 143 (136-145) mmol/L Potassium 4.2 (3.5-5.1) mmol/L Chloride 107 (98-107) mmol/L Carbon Dioxide 20.1 L (21.0-32.0) mmol/L BUN 9 (7.0-18.0) mg/dL Creatinine 0.7 (0.6-1.0) mg/dL Est Cr Clr Drug Dosing 55.97 mL/min Estimated GFR (MDRD) > 60.0 ml/min Glucose 208 H (74-106) mg/dL POC Glucose 201 H (60-110) mg/dL Calcium 8.4 L (8.5-10.1) mg/dL Diony Results Last 24 Hours: Microbiology 11/15/18 08:00 Campylobacter Antigen Assay - Final Stool / Feces NEGATIVE CAMPYLOBACTER AG REFERENCE RANGE: NEGATIVE 11/15/18 08:00 Clostridium difficile Toxin A & B - Final Stool / Feces Negative for C.Diff Toxin/AG REFERENCE RANGE: NEGATIVE Stool Occult Blood (DIONY) - Final NEGATIVE OCCULT BLOOD REFERENCE RANGE: NEGATIVE Med Orders - Current: Current Medications Albuterol/Ipratropium (Duoneb 3.0-0.5 Mg/3 Ml) 3 ml NEB Q4HRRT PRN PRN Reason: SOB/wheezing Sodium Chloride (Normal Saline) 1,000 mls @ 125 mls/hr IV STAT [facility] Last Admin: 11/15/18 08:51 Dose: 125 mls/hr Ceftriaxone Sodium/Dextrose 1 (gm/ Premix) 50 mls @ 100 mls/hr IV Q24H [facility] Azithromycin 500 mg/ Sodium (Chloride) 250 mls @ 250 mls/hr IV Q24H [facility] Last Admin: 11/14/18 15:13 Dose: 250 mls/hr Insulin Aspart (Novolog) 0 unit SUBCUT TIDAC [facility]; Protocol Non-Formulary Medication (Acetaminophen With Codeine [Acetaminophen-Cod #4]) 1 - 2 tab PO Q4HR PRN PRN Reason: Pain Ondansetron HCl (Zofran) 4 mg IVPUSH Q4H PRN PRN Reason: Nausea Pantoprazole Sodium (Protonix Iv) 40 mg IV Q12HR [facility] Last Admin: 11/15/18 08:35 Dose: 40 mg Discontinued Medications Sodium Chloride (Normal Saline) Confirm Administered Dose 20 mls @ as directed .ROUTE .STK-MED ONE Stop: 11/14/18 11:19 Last Admin: 11/14/18 11:24 Dose: 20 mls/hr Ceftriaxone Sodium/Dextrose 1 (gm/ Premix) 50 mls @ 100 mls/hr IV ONETIME ONE Stop: 11/14/18 12:10 Last Admin: 11/14/18 11:49 Dose: 100 mls/hr Azithromycin 500 mg/ Sodium (Chloride) 250 mls @ 250 mls/hr IV Q24H [facility] Last Admin: 11/14/18 15:16 Dose: Not Given Insulin Aspart (Novolog) 0 unit SUBCUT Q6H [facility]; Protocol Last Admin: 11/15/18 08:46 Dose: 2 units Iopamidol (Isovue Multipack-370 (76%)) 54 ml IVPUSH ONETIME STA Stop: 11/14/18 10:25 Last Admin: 11/14/18 10:25 Dose: 54 ml Metoclopramide HCl (Reglan) 10 mg IV ONETIME ONE Stop: 11/14/18 11:39 Last Admin: 11/14/18 11:49 Dose: 10 mg Morphine Sulfate (Morphine) 2 mg IVPUSH ONETIME ONE Stop: 11/14/18 09:13 Last Admin: 11/14/18 09:26 Dose: 2 mg Morphine Sulfate (Morphine) 2 mg IVPUSH ONETIME ONE Stop: 11/14/18 10:06 Last Admin: 11/14/18 10:11 Dose: 2 mg Morphine Sulfate (Morphine) 3 mg IVPUSH Q2H PRN PRN Reason: Pain (severe 7-10) Last Admin: 11/15/18 08:33 Dose: 3 mg Ondansetron HCl (Zofran) 8 mg IVPUSH ONETIME ONE Stop: 11/14/18 09:21 Last Admin: 11/14/18 09:26 Dose: 8 mg Pantoprazole Sodium (Protonix Iv) 80 mg IVPUSH .BOLUS ONE Stop: 11/14/18 11:13 Last Admin: 11/14/18 11:24 Dose: 80 mg - Exam General: Alert, Oriented, Cooperative, No Acute Distress Neck: Supple Lungs: Clear to Auscultation, Normal Respiratory Effort Cardiovascular: Regular Rate, Regular Rhythm GI/Abdominal Exam: Normal Bowel Sounds, Soft, Non-Tender, No Organomegaly Back Exam: Normal Inspection, Full Range of Motion Extremities: Normal Inspection, Normal Range of Motion, Non-Tender, No Pedal Edema Skin: Warm, Dry, Other (ulcerations noted to bilateral lower extremities, stable no change.) Wound/Incisions: Healing Well. No: Erythema Psy/Mental Status: Alert, Normal Affect, Normal Mood - Problem List & Annotations (1) Small bowel obstruction SNOMED Code(s): 259407947 Code(s): K56.609 - UNSP INTESTNL OBST, UNSP TO PARTIAL VERSUS COMPLETE OBST Status: Acute Current Visit: Yes (2) Dehydration SNOMED Code(s): 36678294 Code(s): E86.0 - DEHYDRATION Status: Acute Priority: High Current Visit : No (3) Diarrhea SNOMED Code(s): 95541902 Code(s): R19.7 - DIARRHEA, UNSPECIFIED Status: Acute Current Visit: No (4) CAP (community acquired pneumonia) SNOMED Code(s): 188297311 Code(s): J18.9 - PNEUMONIA, UNSPECIFIED ORGANISM Status: Acute Current Visit: Yes Qualifiers: Laterality: right (5) Leukocytosis SNOMED Code(s): 819396731, 912986136 Code(s): D72.829 - ELEVATED WHITE BLOOD CELL COUNT, UNSPECIFIED Status: Acute Priority: High Current Visit: No Qualifiers: Leukocytosis type: bandemia Qualified Code(s): D72.825 - Bandemia (6) HTN (hypertension) SNOMED Code(s): 34608349 Code(s): I10 - ESSENTIAL (PRIMARY) HYPERTENSION Status: Chronic Current Visit: Yes (7) CAD (coronary artery disease) SNOMED Code(s): 40192795 Code(s): I25.10 - ATHSCL HEART DISEASE OF [place] CORONARY ARTERY W/O ANG PCTRS Status: Chronic Current Visit: Yes (8) Chronic pain SNOMED Code(s): 52675203 Code(s): G89.29 - OTHER CHRONIC PAIN Status: Chronic Current Visit: Yes (9) Diabetes mellitus type 1, controlled, insulin dependent SNOMED Code(s): 55832873 Code(s): E10.9 - TYPE 1 DIABETES MELLITUS WITHOUT COMPLICATIONS Status: Chronic Priority: High Current Visit: No (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 SNOMED Code(s): 70211964 Code(s): E11.620 - TYPE 2 DIABETES MELLITUS WITH DIABETIC DERMATITIS Status : Chronic Priority: High Current Visit: No - Problem List Review Problem List Initiated/Reviewed/Updated: Yes - My Orders Last 24 Hours: My Active Orders 11/14/18 14:08 Ambulate [RC] ASDIRECTED Up to Chair [RC] ASDIRECTED Resuscitation Status Routine 11/14/18 14:09 Intake and Output [RC] Q12H Oxygen Therapy [RC] PRN VTE/DVT Education [RC] PER UNIT ROUTINE Vital Signs [RC] Q4H 11/14/18 14:10 Consult to Physician [CONS] Routine Ondansetron [Zofran] 4 mg IVPUSH Q4H PRN 11/14/18 14:14 Notify Provider Consults [RC] ASDIRECTED 11/14/18 15:03 Azithromycin [Zithromax] 500 mg Sodium Chloride 0.9% [Normal Saline] 250 ml IV Q24H 11/14/18 17:21 Blood Glucose Check, Bedside [RC] Q6H 11/14/18 20:40 Albuterol/Ipratropium [DuoNeb 3.0-0.5 MG/3 ML] 3 ml NEB Q4HRRT PRN 11/14/18 20:41 RT Aerosol Therapy [RC] ASDIRECTED 11/14/18 21:00 Pantoprazole [ProTONIX IV] 40 mg IV Q12HR 11/15/18 10:04 Acetaminophen with Codeine [Acetaminophen-Cod #4] 1 - 2 tab PO Q4HR PRN 11/15/18 11:30 Insulin Aspart [NovoLOG] See Protocol SUBCUT TIDAC 11/15/18 12:00 cefTRIAXone [Rocephin in Dextrose,Iso-Osm 1 GM/50 ML] 1 gm Premix Bag 1 bag IV Q24H 11/15/18 Lunch Clear Liquid Diet [DIET] - Plan Plan:: This 63 year old female admitted with SBO and CAP 1. SBO: Xray showed some fluid filled loops of bowel, but having no pain. Passing flatus this am. Will trial CL diet today and monitor. IVFs overnight. Monitor pain. Does take Tylenol #4 at home QID for pain. 2. CAP: Dyspnea and cough improved. Continue Rocephin and Azithromycin IV. Monitor labwork in AM. 3. COPD: Continue inhalers. Nebulizers PRN. 4. HTN: Monitor. Stable currently. 5. DM Type 1: Monitor BS TIDAC. Restart Lantus tonight half dose if tolerates CL diet. Monitor. VTE prophylaxis: Heparin Dispo: 2 days.
[2018-11-15] MEDS: TYLENOL PO PRN ×3 (11:30→19:35)
[2018-11-15] MEDS: Clopidogrel 75 MG Tab PO SCH (11:55)
[2018-11-15] MEDS: Fludrocortisone 0.1 MG Tab PO SCH (11:58)
[2018-11-15] MEDS: Lisinopril 10 MG Tab PO SCH (11:59)
[2018-11-15] MEDS ORDERED: cefTRIAXone 1 GM in Premix Bag 1 BAG IV SCH (12:00)
[2018-11-15] MEDS: Heparin Sodium 5,000 Units/ML Vial SUBCUT SCH ×2 (12:08→22:47)
[2018-11-15] MEDS: Propranolol 20 MG Tab PO SCH ×2 (14:12→21:25)
[2018-11-15] MEDS: Azithromycin 500 MG in Sodium Chloride 0.9% 250 ML IV SCH (14:13)
[2018-11-15] MEDS ORDERED: Insulin Glargine,Human Rec. Analog 100 Units/ML 3 ML Pen SUBCUT ONE (15:00)
[2018-11-15] MEDS: Sodium Bicarbonate 650 MG Tab PO SCH (16:29)
[2018-11-15] MEDS ORDERED: Rosuvastatin 10 MG Tab PO SCH (21:00)
[2018-11-16] MEDS: Sodium Chloride 0.9% 1,000 ML IV SCH (02:17)
[2018-11-16] MEDS: Propranolol 20 MG Tab PO SCH (05:48)
[2018-11-16] MEDS: Insulin Aspart 100 Units/ML 3 ML Pen SUBCUT SCH (06:42)
[2018-11-16] MEDS: TYLENOL PO PRN (06:46)
[2018-11-16 07:03] LABS: CHLORIDE,CL 108 mmol/L (98-107); SODIUM,NA 140 mmol/L (136-145)
[2018-11-16] MEDS: Sodium Bicarbonate 650 MG Tab PO SCH (08:38)
[2018-11-16] MEDS: Fludrocortisone 0.1 MG Tab PO SCH (08:38)
[2018-11-16] MEDS: Lisinopril 10 MG Tab PO SCH (08:38)
[2018-11-16] MEDS: Clopidogrel 75 MG Tab PO SCH (08:38)
[2018-11-16] MEDS ORDERED: Aspirin 81 MG Tab.Chew PO SCH (09:00)
--- NOTE | 2018-11-16 09:18 | PCM.DCSUM1 ---
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 She reports she typically has some amount of abdominal pain along with nausea and vomiting secondary to complications from her gastrectomy but she felt this was definitely different this morning. She reports having no flatus but having smaller than normal loose BMs. Denies fevers or chills, reports some mild shortness of breath and productive cough. She denies chest pain. No urinary symptoms. Reports BS have been controlled. In the ED leukocytosis noted at 17, 040, platelets 417, K+ 4.6. CT of abd/pelvis revealed SBO with dilated loops of bowel, with edema through mesentery, possible unspecific enteritis. SHe was treated with Rocephin, Morphine, IVFs, and Protonix. She will be admitted observation for SBO. Diagnosis: Stroke: No - Discharge Data Discharge Date: 11/16/18 Discharge Disposition: Home, Self-Care 01 Condition: Good - Discharge Diagnosis/Problem(s) (1) Small bowel obstruction SNOMED Code(s): 071967903 ICD Code: K56.609 - UNSP INTESTNL OBST, UNSP TO PARTIAL VERSUS COMPLETE OBST Status: Acute (2) Dehydration SNOMED Code(s): 79597992 ICD Code: E86.0 - DEHYDRATION Status: Acute Priority: High (3) Diarrhea SNOMED Code(s): 70035171 ICD Code: R19.7 - DIARRHEA, UNSPECIFIED Status: Acute (4) CAP (community acquired pneumonia) SNOMED Code(s): 083905497 ICD Code: J18.9 - PNEUMONIA, UNSPECIFIED ORGANISM Status: Acute Qualifiers: Laterality: right (5) Leukocytosis SNOMED Code(s): 198178261, 407629371 ICD Code: D72.829 - ELEVATED WHITE BLOOD CELL COUNT, UNSPECIFIED Status: Acute Priority: High Qualifiers: Leukocytosis type: bandemia Qualified Code(s): D72.825 - Bandemia (6) HTN (hypertension) SNOMED Code(s): 27056428 ICD Code: I10 - ESSENTIAL (PRIMARY) HYPERTENSION Status: Chronic (7) CAD (coronary artery disease) SNOMED Code(s): 53863305 ICD Code: I25.10 - ATHSCL HEART DISEASE OF [place] CORONARY ARTERY W/O ANG PCTRS Status: Chronic (8) Chronic pain SNOMED Code(s): 65803554 ICD Code: G89.29 - OTHER CHRONIC PAIN Status: Chronic (9) Diabetes mellitus type 1, controlled, insulin dependent SNOMED Code(s): 39721386 ICD Code: E10.9 - TYPE 1 DIABETES MELLITUS WITHOUT COMPLICATIONS Status: Chronic Priority: High (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 SNOMED Code(s): 83591863 ICD Code: E11.620 - TYPE 2 DIABETES MELLITUS WITH DIABETIC DERMATITIS Status: Chronic Priority: High - Patient Summary/Data Consults: Consultations 11/14/18 14:10 Consult to Physician [CONS] Routine - Patient Instructions Diet: GI Soft/Low Residue/Low Fiber Activity: As Tolerated Showering/Bathing: May Shower Notify Provider of: Fever, Increased Pain, Swelling and Redness, Drainage, Nausea and/or Vomiting - Discharge Plan *PRESCRIPTION DRUG MONITORING PROGRAM REVIEWED*: Not Applicable *COPY OF PRESCRIPTION DRUG MONITORING REPORT IN PATIENT ESTEPHANIA: Not Applicable Prescriptions/Med Rec: Azithromycin 500 mg PO DAILY #3 tablet Home Medications: Home Meds Acetaminophen with Codeine [Acetaminophen-Cod #4] 1 - 2 tab PO Q4HR PRN [History] Aspirin 81 mg PO DAILY 01/18/15 [History] Fludrocortisone [Florinef] 0.1 mg PO ASDIRECTED 01/18/15 [History] Insulin Glarg,Human.Rec.Analog [LantUS Solostar] 9 units SQ DAILY 01/18/15 [ History] Propranolol HCl 10 mg PO TID 01/18/15 [History] Sodium Bicarbonate 1 tab PO BIDMEALS 01/18/15 [History] amLODIPine [Norvasc] 1 tab PO DAILY 01/18/15 [History] Insulin Aspart [NovoLOG] 0 unit SUBCUT TIDAC pen 01/19/15 [Rx] Carisoprodol 1 tab PO TID PRN 01/21/18 [History] Clopidogrel Bisulfate [Clopidogrel] 1 tab PO DAILY 01/21/18 [History] Lisinopril 1 tab PO DAILY 01/21/18 [History] Ondansetron HCl [Zofran] 1 tab PO ASDIRECTED PRN 01/21/18 [History] Pantoprazole [ProTONIX] 1 tab PO DAILY 01/21/18 [History] Rosuvastatin Calcium 20 mg PO BEDTIME 01/21/18 [History] Triamcinolone Acetonide [Triamcinolone Acetonide 0.1% Crm] 0 mg .XX BID [History] Doxycycline Hyclate 100 mg PO DAILY 06/30/18 [History] Patient's Own Medication [Ptom] 0 each SUBCUT WITHMEALSANDBED PRN each [Rx] Ranitidine [Zantac] 150 mg PO DAILY PRN 11/15/18 [History] Azithromycin 500 mg PO DAILY #3 tablet 11/16/18 [Rx] Oxygen Therapy Mode: Room Air Patient Handouts: Coronary Artery Disease, Male, Small Bowel Obstruction, Easy- to-Read, Azithromycin tablets, Hypertension, Community-Acquired Pneumonia, Adult , [id number] Referrals: Oskar Verma MD [Physician] - 11/25/18 10:30 am - Discharge Summary/Plan Comment DC Time >30 min.: No Discharge Summary/Plan Comment: Admitting Diagnoses: Abdominal pain SBO Discharge Diagnoses: Ileus vs SBO CAP Other PMH DM Type 1 Necrobiosis lipoidica HTN GERD CAD COPD Zakiya was admitted and treated with bowel rest, IVFs and zofran for ileus vs SBO. Upon arrival to our unit, abdominal assessment was benign. She was not having any further pain and no nausea. She was kept NPO overnight and CL and then FL diet slowly started. She tolerated diet well, passing gas and having BMs. Stool cultures all negative. On abdominal CT, she wsa noted to have possible infiltrate. She was treated with Azithromycin and Rocephin for community acquired pneumonia. BC were negative. She was feeling much better today and very eager for discharge home. She will be sent home with 3 more days of Azithromycin and to continue soft low fiber diet for next few days then slowly advance to regular. She may consider gastric emptying study as outpatient, but to discuss this with PCP. She is to return to ED or clinic if concerns should arise. - General Info Date of Service: 11/16/18 Admission Dx/Problem (Free Text: Admission Diagnosis/Problem Admission Diagnosis/Problem Small bowel obstruction Subjective Update: Feeling good, no pain. Requesting discharge home. No chest pain or abdominal pain. Tolerating diet. Functional Status: Reports: Pain Controlled, Tolerating Diet, Ambulating, Urinating - Review of Systems General: Reports: No Symptoms. Denies: Fever, Weakness HEENT: Reports: No Symptoms Pulmonary: Reports: No Symptoms. Denies: Shortness of Breath Cardiovascular: Reports: No Symptoms. Denies: Chest Pain Gastrointestinal: Reports: No Symptoms. Denies: Abdominal Pain, Nausea, Vomiting Genitourinary: Reports: No Symptoms. Denies: Dysuria, Frequency 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: Reports: No Symptoms Skin: Reports: No Symptoms Neurological: Reports: No Symptoms Psychiatric: Reports: No Symptoms - Patient Data Vitals - Most Recent: Last Vital Signs Temp 97.8 F 11/16/18 07:28 Pulse 63 11/16/18 04:00 Resp 18 11/16/18 07:28 BP 163/53 H 11/16/18 08:38 Pulse Ox 95 11/16/18 07:28 Weight - Most Recent: 42.547 kg I&O - Last 24 hours: Intake & Output 11/15/18 11/16/18 11/16/18 22:59 06:59 14:59 Intake Total 2571 2567 Output Total 800 700 Balance 1771 9937 Lab Results - Last 24 hrs: Laboratory Results - last 24 hr 11/15/18 11/15/18 11/15/18 Range/Units 11:08 14:17 16:05 WBC (4.0-11.0) K/uL RBC (4.30-5.90) M/uL Hgb (12.0-16.0) g/dL Hct (36.0-46.0) % MCV (80.0-98.0) fL MCH (27.0-32.0) pg MCHC (31.0-37.0) g/dL RDW Std Deviation (28.0-62.0) fl RDW Coeff of Hesham (11.0-15.0) % Plt Count (150-400) K/uL MPV (7.40-12.00) fL Neut % (Auto) (48.0-80.0) % Lymph % (Auto) (16.0-40.0) % Gentry % (Auto) (0.0-15.0) % Eos % (Auto) (0.0-7.0) % Baso % (Auto) (0.0-1.5) % Neut # (Auto) (1.4-5.7) K/uL Lymph # (Auto) (0.6-2.4) K/uL Gentry # (Auto) (0.0-0.8) K/uL Eos # (Auto) (0.0-0.7) K/uL Baso # (Auto) (0.0-0.1) K/uL Nucleated RBC % /100WBC Nucleated RBCs # K/uL Sodium (136-145) mmol/L Potassium (3.5-5.1) mmol/L Chloride (98-107) mmol/L Carbon Dioxide (21.0-32.0) mmol/L BUN (7.0-18.0) mg/dL Creatinine (0.6-1.0) mg/dL Est Cr Clr Drug Dosing mL/min Estimated GFR (MDRD) ml/min Glucose (74-106) mg/dL POC Glucose 154 H 283 H 221 H (60-110) mg/dL Calcium (8.5-10.1) mg/dL 11/15/18 11/16/18 11/16/18 Range/Units 21:12 05:48 05:48 WBC 8.37 (4.0-11.0) K/uL RBC 3.57 L (4.30-5.90) M/uL Hgb 9.8 L (12.0-16.0) g/dL Hct 31.8 L (36.0-46.0) % MCV 89.1 (80.0-98.0) fL MCH 27.5 (27.0-32.0) pg MCHC 30.8 L (31.0-37.0) g/dL RDW Std Deviation 49.2 (28.0-62.0) fl RDW Coeff of Hesham 15 (11.0-15.0) % Plt Count 291 (150-400) K/uL MPV 10.40 (7.40-12.00) fL Neut % (Auto) 64.0 (48.0-80.0) % Lymph % (Auto) 21.7 (16.0-40.0) % Gentry % (Auto) 11.4 (0.0-15.0) % Eos % (Auto) 2.7 (0.0-7.0) % Baso % (Auto) 0.2 (0.0-1.5) % Neut # (Auto) 5.4 (1.4-5.7) K/uL Lymph # (Auto) 1.8 (0.6-2.4) K/uL Gentry # (Auto) 1.0 H (0.0-0.8) K/uL Eos # (Auto) 0.2 (0.0-0.7) K/uL Baso # (Auto) 0.0 (0.0-0.1) K/uL Nucleated RBC % 0.0 /100WBC Nucleated RBCs # 0 K/uL Sodium 140 (136-145) mmol/L Potassium 3.5 (3.5-5.1) mmol/L Chloride 108 H (98-107) mmol/L Carbon Dioxide 23.4 (21.0-32.0) mmol/L BUN 5 L (7.0-18.0) mg/dL Creatinine 0.6 (0.6-1.0) mg/dL Est Cr Clr Drug Dosing 65.30 mL/min Estimated GFR (MDRD) > 60.0 ml/min Glucose 95 (74-106) mg/dL POC Glucose 150 H (60-110) mg/dL Calcium 8.2 L (8.5-10.1) mg/dL 11/16/18 Range/Units 06:12 WBC (4.0-11.0) K/uL RBC (4.30-5.90) M/uL Hgb (12.0-16.0) g/dL Hct (36.0-46.0) % MCV (80.0-98.0) fL MCH (27.0-32.0) pg MCHC (31.0-37.0) g/dL RDW Std Deviation (28.0-62.0) fl RDW Coeff of Hesham (11.0-15.0) % Plt Count (150-400) K/uL MPV (7.40-12.00) fL Neut % (Auto) (48.0-80.0) % Lymph % (Auto) (16.0-40.0) % Gentry % (Auto) (0.0-15.0) % Eos % (Auto) (0.0-7.0) % Baso % (Auto) (0.0-1.5) % Neut # (Auto) (1.4-5.7) K/uL Lymph # (Auto) (0.6-2.4) K/uL Gentry # (Auto) (0.0-0.8) K/uL Eos # (Auto) (0.0-0.7) K/uL Baso # (Auto) (0.0-0.1) K/uL Nucleated RBC % /100WBC Nucleated RBCs # K/uL Sodium (136-145) mmol/L Potassium (3.5-5.1) mmol/L Chloride (98-107) mmol/L Carbon Dioxide (21.0-32.0) mmol/L BUN (7.0-18.0) mg/dL Creatinine (0.6-1.0) mg/dL Est Cr Clr Drug Dosing mL/min Estimated GFR (MDRD) ml/min Glucose (74-106) mg/dL POC Glucose 108 (60-110) mg/dL Calcium (8.5-10.1) mg/dL BRENDAN Results - Last 24 hrs: Microbiology 11/14/18 10:35 Urine Culture - Final Urine, Clean Catch MIXED MARIELLE 10,000-100,000 CFU/ML 11/14/18 12:48 Aerobic Blood Culture - Preliminary Blood - Venous - Lab Draw NO GROWTH AFTER 1 DAY Anaerobic Blood Culture - Preliminary NO GROWTH AFTER 1 DAY 11/14/18 12:38 Aerobic Blood Culture - Preliminary Blood - Venous NO GROWTH AFTER 1 DAY Anaerobic Blood Culture - Preliminary NO GROWTH AFTER 1 DAY 11/15/18 08:00 Campylobacter Antigen Assay - Final Stool / Feces NEGATIVE CAMPYLOBACTER AG REFERENCE RANGE: NEGATIVE 11/15/18 08:00 Clostridium difficile Toxin A & B - Final Stool / Feces Negative for C.Diff Toxin/AG REFERENCE RANGE: NEGATIVE Stool Occult Blood (BRENDAN) - Final NEGATIVE OCCULT BLOOD REFERENCE RANGE: NEGATIVE Med Orders - Current: Current Medications Albuterol/Ipratropium (Duoneb 3.0-0.5 Mg/3 Ml) 3 ml NEB Q4HRRT PRN PRN Reason: SOB/wheezing Aspirin (Aspirin) 81 mg PO DAILY MIKHAIL Last Admin: 11/16/18 08:39 Dose: 81 mg Carisoprodol (Soma) 350 mg PO TID PRN PRN Reason: Muscle Spasm Last Admin: 11/15/18 20:00 Dose: 350 mg Clopidogrel Bisulfate (Plavix) 75 mg PO DAILY REPLACED BY [facility] Last Admin: 11/16/18 08:38 Dose: 75 mg Fludrocortisone Acetate (Florinef) 0.1 mg PO DAILY REPLACED BY [facility] Last Admin: 11/16/18 08:38 Dose: 0.1 mg Heparin Sodium (Porcine) (Heparin Sodium) 5,000 units SUBCUT Q12H REPLACED BY [facility] Last Admin: 11/15/18 22:47 Dose: 5,000 units Sodium Chloride (Normal Saline) 1,000 mls @ 125 mls/hr IV STAT REPLACED BY [facility] Last Admin: 11/16/18 02:17 Dose: 125 mls/hr Ceftriaxone Sodium/Dextrose 1 (gm/ Premix) 50 mls @ 100 mls/hr IV Q24H REPLACED BY [facility] Last Admin: 11/15/18 12:06 Dose: 100 mls/hr Azithromycin 500 mg/ Sodium (Chloride) 250 mls @ 250 mls/hr IV Q24H REPLACED BY [facility] Last Admin: 11/15/18 14:13 Dose: 250 mls/hr Insulin Aspart (Novolog) 0 unit SUBCUT TIDAC REPLACED BY [facility]; Protocol Last Admin: 11/16/18 06:42 Dose: Not Given Lisinopril (Prinivil) 10 mg PO DAILY REPLACED BY [facility] Last Admin: 11/16/18 08:38 Dose: 10 mg Ondansetron HCl (Zofran) 4 mg IVPUSH Q4H PRN PRN Reason: Nausea Pantoprazole Sodium (Protonix Iv) 40 mg IV Q12HR REPLACED BY [facility] Last Admin: 11/15/18 20:43 Dose: 40 mg Tylenol #4 [ Acetaminophen/Codeine 300-60mg] 2 each PO Q4HR PRN PRN Reason: Pain Last Admin: 11/16/18 06:46 Dose: 2 each Propranolol HCl (Inderal) 10 mg PO TID REPLACED BY [facility] Last Admin: 11/16/18 05:48 Dose: 10 mg Sodium Bicarbonate (Sodium Bicarbonate) 650 mg PO BIDMEALS REPLACED BY [facility] Last Admin: 11/16/18 08:38 Dose: 650 mg Discontinued Medications Sodium Chloride (Normal Saline) Confirm Administered Dose 20 mls @ as directed .ROUTE .STK-MED ONE Stop: 11/14/18 11:19 Last Admin: 11/14/18 11:24 Dose: 20 mls/hr Ceftriaxone Sodium/Dextrose 1 (gm/ Premix) 50 mls @ 100 mls/hr IV ONETIME ONE Stop: 11/14/18 12:10 Last Admin: 11/14/18 11:49 Dose: 100 mls/hr Azithromycin 500 mg/ Sodium (Chloride) 250 mls @ 250 mls/hr IV Q24H MIKHAIL Last Admin: 11/14/18 15:16 Dose: Not Given Insulin Aspart (Novolog) 0 unit SUBCUT Q6H MIKHAIL; Protocol Last Admin: 11/15/18 08:46 Dose: 2 units Insulin Glargine (Lantus Solostar) 5 units SUBCUT ONETIME ONE Stop: 11/15/18 15:01 Last Admin: 11/15/18 14:48 Dose: 5 units Iopamidol (Isovue Multipack-370 (76%)) 54 ml IVPUSH ONETIME STA Stop: 11/14/18 10:25 Last Admin: 11/14/18 10:25 Dose: 54 ml Metoclopramide HCl (Reglan) 10 mg IV ONETIME ONE Stop: 11/14/18 11:39 Last Admin: 11/14/18 11:49 Dose: 10 mg Morphine Sulfate (Morphine) 2 mg IVPUSH ONETIME ONE Stop: 11/14/18 09:13 Last Admin: 11/14/18 09:26 Dose: 2 mg Morphine Sulfate (Morphine) 2 mg IVPUSH ONETIME ONE Stop: 11/14/18 10:06 Last Admin: 11/14/18 10:11 Dose: 2 mg Morphine Sulfate (Morphine) 3 mg IVPUSH Q2H PRN PRN Reason: Pain (severe 7-10) Last Admin: 11/15/18 08:33 Dose: 3 mg Ondansetron HCl (Zofran) 8 mg IVPUSH ONETIME ONE Stop: 11/14/18 09:21 Last Admin: 11/14/18 09:26 Dose: 8 mg Pantoprazole Sodium (Protonix Iv) 80 mg IVPUSH .BOLUS ONE Stop: 11/14/18 11:13 Last Admin: 11/14/18 11:24 Dose: 80 mg Rosuvastatin Calcium (Crestor) 20 mg PO BEDTIME MIKHAIL - Exam General: Reports: Alert, Oriented Neck: Reports: Supple Lungs: Reports: Clear to Auscultation, Normal Respiratory Effort Cardiovascular: Reports: Regular Rate, Regular Rhythm GI/Abdominal Exam: Normal Bowel Sounds, Non-Tender, No Organomegaly, No Mass Back Exam: Reports: Normal Inspection, Full Range of Motion Extremities: Normal Inspection, Normal Range of Motion, Non-Tender, No Pedal Edema Neurological: Reports: No New Focal Deficit Psy/Mental Status: Reports: Alert, Normal Affect, Normal Mood
[2018-11-16] MEDS: Pantoprazole 40 MG Vial IV SCH (10:52)
[2018-11-16] MEDS ORDERED: Azithromycin 250 MG Tab PO ONE (10:52)
[2018-11-16 14:13] VITALS: BP 169/48
== END 2018-11-16 10:50 | disposition home or self-care (01) ==
LOC: MW.ED 09:05 → MW.MS 11:51
PROVIDERS: ADMIT Internal Medicine; ATTEND Internal Medicine
DX: K56.609 Unspecified intestinal obstruction, unspecified as to partial versus complete obstruction (principal); J18.9 Pneumonia, unspecified organism; E86.0 Dehydration; R19.7 Diarrhea, unspecified; I25.10 Atherosclerotic heart disease of native coronary artery without angina pectoris; I10 Essential (primary) hypertension; I25.2 Old myocardial infarction; E10.620 Type 1 diabetes mellitus with diabetic dermatitis; E10.40 Type 1 diabetes mellitus with diabetic neuropathy, unspecified; J44.9 Chronic obstructive pulmonary disease, unspecified; G89.29 Other chronic pain; K21.9 Gastro-esophageal reflux disease without esophagitis; Z90.49 Acquired absence of other specified parts of digestive tract; Z95.5 Presence of coronary angioplasty implant and graft; Z87.891 Personal history of nicotine dependence; Z79.82 Long term (current) use of aspirin; Z79.4 Long term (current) use of insulin; Z79.52 Long term (current) use of systemic steroids; Z79.02 Long term (current) use of antithrombotics/antiplatelets; Z79.899 Other long term (current) drug therapy
CPT/HCPCS: 36415; 74019; 74019-26; 74177; 74177-26; 80048; 80053; 81001; 82272; 82962; 83690; 84484; 85025; 87040; 87046; 87086; 87324; 87328; 87329; 87899; 93005; 96361; 96374; 96375; 96376; 99285-25; A4217; A9270-GY; C9113; J0456; J0696; J1644; J1815-GY; J2270; J2405; J2765; J7040; J7050; Q9967

== ENCOUNTER 2018-12-14 08:58 | Observation (INO) | payer MEDICARE, MEDICAID ==
[2018-12-14] MEDS ORDERED: 50% Dextrose in Water 50 ML Syringe IVPUSH ONE ×2 (09:08→13:52)
[2018-12-14] MEDS ORDERED: Sodium Chloride 0.9% 1,000 ML IV ONE (09:08)
[2018-12-14] MEDS ORDERED: Albuterol/Ipratropium 3.0-0.5 MG/3 ML Neb Soln NEB ONE (09:20)
--- NOTE | 2018-12-14 09:22 | EDM.PDOC ---
<Alcon Barkley - Last Filed: 12/14/18 11:11> ED HPI GENERAL MEDICAL PROBLEM - General Chief Complaint: Diabetic Complaint Stated Complaint: DIABETIC EMERGENCY Time Seen by Provider: 12/14/18 09:19 - History of Present Illness INITIAL COMMENTS - FREE TEXT/NARRATIVE: 63 y/o female with history of type 1 diabetes on insulin, COPD who presented to the ER via EMS after she was found at home obtunded with BGL 20's. Per , patient drinks alcohol on a daily basis and yesterday she drank a little more than usual. Usually drinks about 2-3 cocktails. In addition, has been having poor appetite only eating about 1/5 of her portions per . He states that this morning around 3 am his alarm for glucose monitoring went off and it was reading in the 70's. The patient was sleeping so he tried to wake her up and solution manager her some glucose. subsequently she went back to sleep and around 7-8 am his glucose monitor went off again showing BGL 40's. He noticed that the patient was in the living room sitting on couch. Looked diaphoretic and non coherent. he tried to solution manager her oral glucose again and that's when he noticed that she was gargling. He subsequently called EMS. In the ER, she was found to have BGL in 50's. She was given an AMP D50 which later brought up her glucose in the 200's. She became more alert and coherent. Initial lactate was elevated. She was bolused [address] head was negative for any acute strokes, hemorrhage. Through out her stay in the ER ,patient was more alert and oriented. - Related Data Allergies Allergy/AdvReac Type Severity Reaction Status Date / Time No Known Allergies Allergy Verified 12/14/18 09:15 Home Meds: Home Meds Acetaminophen with Codeine [Acetaminophen-Cod #4] 2 tab PO Q4HR PRN 01/18/15 [ History] Aspirin 81 mg PO DAILY 01/18/15 [History] Fludrocortisone [Florinef] 0.1 mg PO ASDIRECTED 01/18/15 [History] Propranolol HCl 10 mg PO TID 01/18/15 [History] Sodium Bicarbonate 1 tab PO BIDMEALS 01/18/15 [History] amLODIPine [Norvasc] 1 tab PO DAILY 08/07/15 [History] Carisoprodol 1 tab PO TID PRN 01/21/18 [History] Clopidogrel Bisulfate [Clopidogrel] 1 tab PO DAILY 01/21/18 [History] Lisinopril 1 tab PO DAILY 01/21/18 [History] Ondansetron HCl [Zofran] 1 tab PO ASDIRECTED PRN 01/21/18 [History] Pantoprazole [ProTONIX] 1 tab PO DAILY 01/21/18 [History] Doxycycline Hyclate 100 mg PO DAILY 06/30/18 [History] Ranitidine [Zantac] 1 tab PO BID 11/15/18 [History] Albuterol [Ventolin HFA] 1 - 2 puff INH ASDIRECTED PRN 12/12/18 [History] Carboxymethylcellulose Sodium [Refresh Tears] 1 drop EYEBOTH ASDIRECTED PRN 07/02 [History] Ezetimibe 10 mg PO DAILY 12/12/18 [History] Fesoterodine Fumarate [Toviaz] 1 tab PO ASDIRECTED 12/12/18 [History] Fiafp 1 injection SUBCUT ASDIRECTED 12/12/18 [History] Insulin Glargine,Hum.Rec.Anlog [Basaglar Kwikpen U-100] 10 units SUBCUT DAILY [History] Isosorbide Mononitrate [Imdur] 30 mg PO DAILY 12/12/18 [History] Nitroglycerin 1 tab SL ASDIRECTED PRN 12/12/18 [History] Umeclidinium [place] [Incruse Ellipta*] 1 inhalation INH DAILY 12/12/18 [History ] Past Medical History HEENT History: Reports: Other (See Below) Other HEENT History: wears reading glasses, upper denture Cardiovascular History: Reports: High Cholesterol, Hypertension, [place], Stents Other Cardiovascular History: Myocardial infarction 2013 Respiratory History: Reports: COPD Gastrointestinal History: Reports: GERD, PUD Other Gastrointestinal History: Gastroparesis, hx gastric ulcers Genitourinary History: Reports: None INFORMATION RESOURCES DIRECTOR History: Reports: 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 History: Reports: Fracture, Osteoarthritis Other 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 History: hx fx arm Neurological History: Reports: Neuropathy, Diabetic Psychiatric History: Reports: None Endocrine/Metabolic History: Reports: Diabetes, Type I, Osteopenia Hematologic History: Reports: None Immunologic History: Reports: None Oncologic (Cancer) History: Reports: None Dermatologic History: Reports: Other (See Below) Other Dermatologic History: necrobiosis lipoidica - Infectious Disease History Infectious Disease History: Reports: None - Past Surgical History Head Surgeries/Procedures: Reports: None HEENT Surgical History: Reports: None Cardiovascular Surgical History: Reports: Coronary Artery Stent, Other (See Below) Other Cardiovascular Surgeries/Procedures: stents x 2 Respiratory Surgical History: Reports: None GI Surgical History: Reports: Appendectomy, Cholecystectomy, Colonoscopy, EGD, Other (See Below) Other GI Surgeries/Procedures: partial gastrectomy, ERCP with insertion of TUbe into bile/pancreatic dust Female Surgical History: Reports: Section, Hysterectomy, Tubal Ligation Endocrine Surgical History: Reports: None Neurological Surgical History: Reports: None 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 Surgical History: Reports: Carpal Tunnel, Shoulder Surgery, Other (See Below) Other 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 Surgeries/Procedures:: left shoulder surgery Oncologic Surgical History: Reports: None Dermatological Surgical History: Reports: Skin Graft Social & Family History - Family History Family Medical History: Noncontributory - Tobacco Use Smoking Status *Q: Former Smoker Used Tobacco, but Quit: Yes Month/Year Tobacco Last Used: 2 years - Caffeine Use Caffeine Use: Reports: None - Recreational Drug Use Recreational Drug Use: No ED ROS GENERAL - Review of Systems Review Of Systems: ROS reveals no pertinent complaints other than HPI. ED EXAM GENERAL NO PERIP PULSE - Physical Exam Exam: See Below Exam Limited By: Other (lethargic can answer questions and move extremities) Head: Atraumatic Respiratory/Chest: Other (rhonchus bilaterally, no wheezing) Cardiovascular: Regular Rate, Rhythm, No Edema GI/Abdominal: Normal Bowel Sounds, Soft, Non-Tender, Distended Extremities: Other (cachectic extremities) Neurological: Alert, Oriented, CN II-XII Intact Skin Exam: Warm, Dry Course - Vital Signs Text/Narrative:: CT head negative for acute stroke, hemorrhage. Now, more alert, oriented. BGL in 200's. Started on Sozyn for suspected aspiration pneumonia. Last Recorded V/S: Last Vital Signs Temp 36.9 C 12/14/18 09:09 Pulse 73 12/14/18 10:39 Resp 20 12/14/18 10:39 BP 134/73 12/14/18 10:39 Pulse Ox 92 L 12/14/18 10:39 - Orders/Labs/Meds Orders: Active Orders 24 hr Category Date Time Status Admission Status [Patient Status] [ADT] Stat ADT 12/14/18 11:07 Active EKG Documentation Completion [RC] STAT Care 12/14/18 09:03 Active Glucose [Blood Glucose Check, Bedside] [RC] ONETIME Care 12/14/18 09:08 Active RT Aerosol Therapy [RC] ASDIRECTED Care 12/14/18 09:20 Active CULTURE BLOOD [BC] Stat Lab 12/14/18 09:00 Received CULTURE BLOOD [BC] Stat Lab 12/14/18 09:26 Received CULTURE URINE [RM] Stat Lab 12/14/18 09:05 Received Piperacillin/Tazobactam [Piperacil-Tazobact] 3.375 gm Med 12/14/18 11:00 Active Sodium Chloride 0.9% [Normal Saline] 50 ml IV Q8H Blood Culture x2 Reflex Set [OM.PC] Stat Oth 12/14/18 09:04 Ordered Medication Orders Piperacillin Sod/Tazobactam (Sod 3.375 gm/ Sodium Chloride) 50 mls @ 100 mls/ hr IV Q8H [facility] Labs: Laboratory Tests 12/14/18 12/14/18 12/14/18 Range/Units 08:40 08:40 08:40 WBC 11.33 H (4.0-11.0) K/uL RBC 4.84 (4.30-5.90) M/uL Hgb 13.4 (12.0-16.0) g/dL Hct 41.1 (36.0-46.0) % MCV 84.9 (80.0-98.0) fL MCH 27.7 (27.0-32.0) pg MCHC 32.6 (31.0-37.0) g/dL RDW Std Deviation 47.4 (28.0-62.0) fl RDW Coeff of Hesham 15 (11.0-15.0) % Plt Count 368 (150-400) K/uL MPV 10.70 (7.40-12.00) fL Neut % (Auto) 59.7 (48.0-80.0) % Lymph % (Auto) 21.7 (16.0-40.0) % [place] % (Auto) 13.2 (0.0-15.0) % Eos % (Auto) 4.7 (0.0-7.0) % Baso % (Auto) 0.7 (0.0-1.5) % Neut # (Auto) 6.8 H (1.4-5.7) K/uL Lymph # (Auto) 2.5 H (0.6-2.4) K/uL [place] # (Auto) 1.5 H (0.0-0.8) K/uL Eos # (Auto) 0.5 (0.0-0.7) K/uL Baso # (Auto) 0.1 (0.0-0.1) K/uL Nucleated RBC % 0.0 /100WBC Nucleated RBCs # 0 K/uL ABG pH (7.35-7.45) ABG pCO2 (35-45) mmHG ABG pO2 (75-100) mmHG ABG HCO3 (22-26) mEq/L ABG Total CO2 ABG Base Excess (-2.0-2.0) Lactate 3.5 H (0.20-2.00) mmol/L Sodium 143 (136-145) mmol/L Potassium 3.7 (3.5-5.1) mmol/L Chloride 104 (98-107) mmol/L Carbon Dioxide 24.0 (21.0-32.0) mmol/L BUN 6 L (7.0-18.0) mg/dL Creatinine 0.8 (0.6-1.0) mg/dL Est Cr Clr Drug Dosing 48.57 mL/min Estimated GFR (MDRD) > 60.0 ml/min Glucose 51 L (74-106) mg/dL POC Glucose (60-110) mg/dL Calcium 8.7 (8.5-10.1) mg/dL Magnesium (1.8-2.4) mg/dL Total Bilirubin 0.4 (0.2-1.0) mg/dL AST 31 (15-37) IU/L ALT 25 (14-63) IU/L Alkaline Phosphatase 157 H (46-116) U/L Creatine Kinase 65 (26-308) U/L Troponin I < 0.050 (0.000-0.056) ng/mL Total Protein 8.3 H (6.4-8.2) g/dL Albumin 3.6 (3.4-5.0) g/dL Globulin 4.7 H (2.6-4.0) g/dL Albumin/Globulin Ratio 0.8 L (0.9-1.6) Urine Color Urine Appearance Urine pH (5.0-8.0) Ur Specific [place] (1.001-1.035) Urine Protein (NEGATIVE) mg/dL Urine Glucose (UA) (NEGATIVE) mg/dL Urine Ketones (NEGATIVE) mg/dL Urine Occult Blood (NEGATIVE) Urine Nitrite (NEGATIVE) Urine Bilirubin (NEGATIVE) Urine Urobilinogen (<2.0) EU/dL Ur Leukocyte Esterase (NEGATIVE) Urine RBC (0-2/HPF) Urine WBC (0-5/HPF) Ur Epithelial Cells (NONE-FEW) Urine Bacteria (NEGATIVE) Urine Yeast Urine Opiates Screen (NEGATIVE) Ur Oxycodone Screen (NEGATIVE) Urine Methadone Screen (NEGATIVE) Ur Barbiturates Screen (NEGATIVE) Ur Phencyclidine Scrn (NEGATIVE) Ur Amphetamine Screen (NEGATIVE) U Methamphetamines Scrn (NEGATIVE) U Benzodiazepines Scrn (NEGATIVE) U Cocaine Metab Screen (NEGATIVE) U Marijuana (THC) Screen (NEGATIVE) Ethyl Alcohol mg/dL 12/14/18 12/14/18 12/14/18 Range/Units 08:40 09:05 09:05 WBC (4.0-11.0) K/uL RBC (4.30-5.90) M/uL Hgb (12.0-16.0) g/dL Hct (36.0-46.0) % MCV (80.0-98.0) fL MCH (27.0-32.0) pg MCHC (31.0-37.0) g/dL RDW Std Deviation (28.0-62.0) fl RDW Coeff of [place] (11.0-15.0) % Plt Count (150-400) K/uL MPV (7.40-12.00) fL Neut % (Auto) (48.0-80.0) % Lymph % (Auto) (16.0-40.0) % [place] % (Auto) (0.0-15.0) % Eos % (Auto) (0.0-7.0) % Baso % (Auto) (0.0-1.5) % Neut # (Auto) (1.4-5.7) K/uL Lymph # (Auto) (0.6-2.4) K/uL [place] # (Auto) (0.0-0.8) K/uL Eos # (Auto) (0.0-0.7) K/uL Baso # (Auto) (0.0-0.1) K/uL Nucleated RBC % /100WBC Nucleated RBCs # K/uL ABG pH (7.35-7.45) ABG pCO2 (35-45) mmHG ABG pO2 (75-100) mmHG ABG HCO3 (22-26) mEq/L ABG Total CO2 ABG Base Excess (-2.0-2.0) Lactate (0.20-2.00) mmol/L Sodium (136-145) mmol/L Potassium (3.5-5.1) mmol/L Chloride (98-107) mmol/L Carbon Dioxide (21.0-32.0) mmol/L BUN (7.0-18.0) mg/dL Creatinine (0.6-1.0) mg/dL Est Cr Clr Drug Dosing mL/min Estimated GFR (MDRD) ml/min Glucose (74-106) mg/dL POC Glucose (60-110) mg/dL Calcium (8.5-10.1) mg/dL Magnesium 1.8 (1.8-2.4) mg/dL Total Bilirubin (0.2-1.0) mg/dL AST (15-37) IU/L ALT (14-63) IU/L Alkaline Phosphatase (46-116) U/L Creatine Kinase (26-308) U/L Troponin I (0.000-0.056) ng/mL Total Protein (6.4-8.2) g/dL Albumin (3.4-5.0) g/dL Globulin (2.6-4.0) g/dL Albumin/Globulin Ratio (0.9-1.6) Urine Color YELLOW Urine Appearance CLEAR Urine pH 7.0 (5.0-8.0) Ur Specific [place] 1.010 (1.001-1.035) Urine Protein TRACE H (NEGATIVE) mg/dL Urine Glucose (UA) 100 H (NEGATIVE) mg/dL Urine Ketones NEGATIVE (NEGATIVE) mg/dL Urine Occult Blood NEGATIVE (NEGATIVE) Urine Nitrite NEGATIVE (NEGATIVE) Urine Bilirubin NEGATIVE (NEGATIVE) Urine Urobilinogen 0.2 (<2.0) EU/dL Ur Leukocyte Esterase SMALL H (NEGATIVE) Urine RBC 0-2 (0-2/HPF) Urine WBC 5-10 (0-5/HPF) Ur Epithelial Cells RARE (NONE-FEW) Urine Bacteria RARE (NEGATIVE) Urine Yeast FEW Urine Opiates Screen POSITIVE (NEGATIVE) Ur Oxycodone Screen NEGATIVE (NEGATIVE) Urine Methadone Screen NEGATIVE (NEGATIVE) Ur Barbiturates Screen NEGATIVE (NEGATIVE) Ur Phencyclidine Scrn NEGATIVE (NEGATIVE) Ur Amphetamine Screen NEGATIVE (NEGATIVE) U Methamphetamines Scrn NEGATIVE (NEGATIVE) U Benzodiazepines Scrn NEGATIVE (NEGATIVE) U Cocaine Metab Screen NEGATIVE (NEGATIVE) U Marijuana (THC) Screen NEGATIVE (NEGATIVE) Ethyl Alcohol 3 mg/dL 12/14/18 12/14/18 Range/Units 09:10 09:29 WBC (4.0-11.0) K/uL RBC (4.30-5.90) M/uL Hgb (12.0-16.0) g/dL Hct (36.0-46.0) % MCV (80.0-98.0) fL MCH (27.0-32.0) pg MCHC (31.0-37.0) g/dL RDW Std Deviation (28.0-62.0) fl RDW Coeff of [place]esham (11.0-15.0) % Plt Count (150-400) K/uL MPV (7.40-12.00) fL Neut % (Auto) (48.0-80.0) % Lymph % (Auto) (16.0-40.0) % [place] % (Auto) (0.0-15.0) % Eos % (Auto) (0.0-7.0) % Baso % (Auto) (0.0-1.5) % Neut # (Auto) (1.4-5.7) K/uL Lymph # (Auto) (0.6-2.4) K/uL [place] # (Auto) (0.0-0.8) K/uL Eos # (Auto) (0.0-0.7) K/uL Baso # (Auto) (0.0-0.1) K/uL Nucleated RBC % /100WBC Nucleated RBCs # K/uL ABG pH 7.372 (7.35-7.45) ABG pCO2 49 H (35-45) mmHG ABG pO2 69 L (75-100) mmHG ABG HCO3 29 H (22-26) mEq/L ABG Total CO2 26.4 ABG Base Excess 2.6 H (-2.0-2.0) Lactate (0.20-2.00) mmol/L Sodium (136-145) mmol/L Potassium (3.5-5.1) mmol/L Chloride (98-107) mmol/L Carbon Dioxide (21.0-32.0) mmol/L BUN (7.0-18.0) mg/dL Creatinine (0.6-1.0) mg/dL Est Cr Clr Drug Dosing mL/min Estimated GFR (MDRD) ml/min Glucose (74-106) mg/dL POC Glucose 261 H (60-110) mg/dL Calcium (8.5-10.1) mg/dL Magnesium (1.8-2.4) mg/dL Total Bilirubin (0.2-1.0) mg/dL AST (15-37) IU/L ALT (14-63) IU/L Alkaline Phosphatase (46-116) U/L Creatine Kinase (26-308) U/L Troponin I (0.000-0.056) ng/mL Total Protein (6.4-8.2) g/dL Albumin (3.4-5.0) g/dL Globulin (2.6-4.0) g/dL Albumin/Globulin Ratio (0.9-1.6) Urine Color Urine Appearance Urine pH (5.0-8.0) Ur Specific [place] (1.001-1.035) Urine Protein (NEGATIVE) mg/dL Urine Glucose (UA) (NEGATIVE) mg/dL Urine Ketones (NEGATIVE) mg/dL Urine Occult Blood (NEGATIVE) Urine Nitrite (NEGATIVE) Urine Bilirubin (NEGATIVE) Urine Urobilinogen (<2.0) EU/dL Ur Leukocyte Esterase (NEGATIVE) Urine RBC (0-2/HPF) Urine WBC (0-5/HPF) Ur Epithelial Cells (NONE-FEW) Urine Bacteria (NEGATIVE) Urine Yeast Urine Opiates Screen (NEGATIVE) Ur Oxycodone Screen (NEGATIVE) Urine Methadone Screen (NEGATIVE) Ur Barbiturates Screen (NEGATIVE) Ur Phencyclidine Scrn (NEGATIVE) Ur Amphetamine Screen (NEGATIVE) U Methamphetamines Scrn (NEGATIVE) U Benzodiazepines Scrn (NEGATIVE) U Cocaine Metab Screen (NEGATIVE) U Marijuana (THC) Screen (NEGATIVE) Ethyl Alcohol mg/dL Meds: Medications Generic Name Dose Route Start Last Admin Trade Name Freq PRN Reason Stop Dose Admin Piperacillin Sod/Tazobactam 50 mls @ 100 mls/hr 12/14/18 11:00 Sod 3.375 gm/ Sodium Chloride IV Q8H MIKHAIL Discontinued Medications Generic Name Dose Route Start Last Admin Trade Name Freq PRN Reason Stop Dose Admin Albuterol/Ipratropium 3 ml 12/14/18 09:20 12/14/18 09:23 Duoneb 3.0-0.5 Mg/3 Ml NEB 12/14/18 09:21 3 ml ONETIME ONE Administration Dextrose/Water 50 ml 12/14/18 09:08 12/14/18 09:22 Dextrose 50% In Water IVPUSH 12/14/18 09:09 50 ml ONETIME ONE Administration Sodium Chloride 1,000 mls @ 500 mls/hr 12/14/18 09:08 12/14/18 09:22 Normal Saline IV 12/14/18 11:07 500 mls/hr STAT ONE Administration Ketorolac Tromethamine 30 mg 12/14/18 09:29 12/14/18 09:40 Toradol IVPUSH 12/14/18 09:30 30 mg ONETIME ONE Administration Departure - Departure Time of Disposition: 10:54 Disposition: Admitted As Inpatient 67 Clinical Impression: Hypoglycemia - Discharge Information Referrals: PCP,None [Primary Care Provider] - Forms: ED Department Discharge - My Orders Last 24 Hours: My Active Orders 12/14/18 09:20 RT Aerosol Therapy [RC] ASDIRECTED - Assessment/Plan Last 24 Hours: My Active Orders 12/14/18 09:20 RT Aerosol Therapy [RC] ASDIRECTED <Marguerite Ramon - Last Filed: 12/14/18 11:27> ED HPI GENERAL MEDICAL PROBLEM - History of Present Illness INITIAL COMMENTS - FREE TEXT/NARRATIVE: This is Dr. Ramon dictating an addendum note is in the supervising physician on this case. I personally seen and evaluated the patient. The called EMS after he found the patient to be hypoglycemic and EMS recorded a blood sugar in the 20s. The did try to give oral glucose and EMS also gave glucagon. Has been last saw the patient 6 hours prior to calling the EMS. The patient on arrival here was more responsive the blood sugar in the 40s but was still groggy and an IV was started quickly as EMS was unable to start 1 and D50 was given. She is now awake alert and oriented and offering history. She says that she has chronic pain in her legs for which on her meds that she takes Tylenol No. 4. She also has a history of hypertension, cardiac and diabetes for which she takes insulin. She follows in our family practice clinic. She says that yesterday she had a normal day without fever chills nausea or vomiting and she had no coughing. The patient quit smoking 2 years ago but does drink alcohol on a semiregular basis. She is only complaining of a loose cough and the bilateral chronic leg pain which is not new or different. She has no head neck or back pain and according to reports she had no trauma with these events. She's had no urinary issues no abdominal pain nausea or vomiting and no fevers or chills. She has no chest pain or shortness of breath. The patient is scheduled for a colonoscopy on Wednesday but did not begin her bowel prep and she says she ate and drink normally yesterday. She doesn't recall her blood sugar last evening but says it was not abnormal and it has not been running on the lower high side per her report to me. On physical exam she has a loose cough and bilateral coarse breath sounds but is maintaining her O2 sats. She is speaking clearly and easily and is awake and alert and moving all extremities now. She has multiple scars on her abdomen which are old and she is very tympanitic on percussion she has no abdominal tenderness on palpation. She has chronic leg changes of the skin and she is very petite and frail overall but has no palpable bony defects or deformities in her extremities. We will do workup as above and continue to reevaluate and follow her blood sugars as well as treat her symptomatology. She was afebrile by rectal temperature. The patient's provider in the clinic Dr Verma called into the emergency department for another reason and I did discuss this patient with him. He tells me that she does not take strong narcotic or pain medication other than the Tylenol No. 4 for her chronic pain and he is aware of that we will give her a dose of Toradol here and continue to manage her pain gradually and slowly as we get more information about the reasons for her being here in the ED. The history will be discussed by the resident with the when he arrives here in the ED, so please see his note for more information Patient continues to do well here. Case was discussed with Dr. Prescott for admission and he accepts. Zosyn was given
[2018-12-14] MEDS ORDERED: Ketorolac 30 MG/ML SDV IVPUSH ONE (09:29)
--- NOTE | 2018-12-14 10:19 | CR ---
EXAMINATION: Portable chest radiograph. HISTORY: Altered mental status.. Comparison: 01/21/2018. FINDINGS: The trachea is midline. The cardiomediastinal silhouette is within normal limits. No pulmonary infiltrates, effusions or pneumothorax. Mild hyperinflation and chronic interstitial prominence, most notable within the lung bases. Osseous structures appear unremarkable. IMPRESSION: No acute cardiopulmonary process.
[2018-12-14 10:22] LABS: CHLORIDE,CL 104 mmol/L (98-107); SODIUM,NA 143 mmol/L (136-145)
--- NOTE | 2018-12-14 10:26 | CT ---
EXAMINATION: Non contrast CT head. Coronal and sagittal reformats. HISTORY: Pain FINDINGS: No evidence of intra or extra axial hemorrhage, mass, midline shift, hydrocephalus or edema. Mild to moderate periventricular white matter FLAIR intensities, most notable posteriorly. No hypoattenuation changes in the major vascular territories to suggest acute infarct. No abnormal intracranial calcifications are detected. Mild to moderate vascular calcifications. Moderate mucosal thickening within the left maxillary sinus. Mastoid air cells and middle ears are clear. Orbits and globes are symmetric. Pituitary fossa appears unremarkable. Calvarium is intact. No evidence of skull fracture. IMPRESSION: 1. No definite acute intracranial findings. 2. Periventricular white matter hypodensities predominantly posteriorly, nonspecific, however may represent small vessel ischemic changes. 3. Left maxillary sinus disease.
--- NOTE | 2018-12-14 10:31 | CR ---
EXAMINATION: Abdomen HISTORY: Pain COMPARISON: 11/15/2018 TECHNIQUE: AP view of the upper abdomen. FINDINGS: There are a few gaseous filled loops of small bowel which are not distended. Small amount of stool and gas is also noted within the colon. However the rectum is not included on the provided imaging. Clips and sutures project over the upper abdomen. No free air under the diaphragm. No abnormal calcifications. Visualized osseous structures appear osteopenic. IMPRESSION: 1. Nonspecific bowel gas pattern without definite evidence of obstruction. 2. Multiple clips project over the upper abdomen.
[2018-12-14] MEDS ORDERED: Piperacillin/Tazobactam 3.375 GM in Sodium Chloride 0.9% 50 ML IV SCH ×2 (11:00→17:00)
[2018-12-14] MEDS ORDERED: Morphine 2 MG/ML Syringe IVPUSH ONE (11:51)
--- NOTE | 2018-12-14 11:56 | PCM.HP ---
H&P History of Present Illness - General Date of Service: 12/14/18 Admit Problem/Dx: Admission Diagnosis/Problem Admission Diagnosis/Problem Hypoglycemia Source of Information: Patient History Limitations: Reports: No Limitations - History of Present Illness Initial Comments - Free Text/Narative: This 63 year old female with pmh of CAD, COPD, partial gastrectomy due to ulcer disease, DM type 1 and chronic lower leg pain presented to the ED today via EMS with hypoglycemia. Her reports her continuous glucose meter signaled him around 0400 this morning for a low glucose. He found her on the cough, unresponsive and tried giving her oral glucose, but then noted gurgling and called EMS. EMS recorded a blood sugar in the 20s. She arrived to the ED more alert, BS in the 40-50s and was given D50 with new IV start and has since been more alert and oriented. She reports she has been eating less and a soft diet with schedule colonoscopy scheduled with Dr Downs this Wednesday. She reports she took 9 units of Lantus 7/2 am and around lunchtime yesterday took fast acting. She denies taking fast acting with supper. Then she had an alcoholic drink last night, reports she had more than one and then fell asleep. She denies recent chest pain, cough or fevers. She reports this morning she feels a congested cough. In the ED leukocytosis of 11,330 noted, Glucose 51, but has since increased to 200s. UA revealed small leukocyte esterase, pyruia 5-10. ETOH 3, CXR negative. She is requiring 5l NC to keep sats mid to low 90s. She was given NS 1 L bolus and toradol for chronic leg pain. She was also given Zosyn. She will be admitted to monitor hypoglycemia and monitor hypoxia and cough. PCP, Dr Verma - Related Data Allergies/Adverse Reactions: Allergies Allergy/AdvReac Type Severity Reaction Status Date / Time No Known Allergies Allergy Verified 12/14/18 09:15 Home Medications: Home Meds Acetaminophen with Codeine [Acetaminophen-Cod #4] 2 tab PO Q4HR PRN 01/18/15 [ History] Fludrocortisone [Florinef] 0.1 mg PO DAILY 01/18/15 [History] Propranolol HCl 10 mg PO TID 01/18/15 [History] Sodium Bicarbonate 650 mg PO BIDMEALS 01/18/15 [History] amLODIPine [Norvasc] 5 mg PO DAILY 01/18/15 [History] Carisoprodol 350 mg PO TID PRN 01/21/18 [History] Clopidogrel Bisulfate [Clopidogrel] 75 mg PO DAILY 01/21/18 [History] Lisinopril 10 mg PO DAILY 01/21/18 [History] Ondansetron HCl [Zofran] 4 mg PO TID PRN 01/21/18 [History] Pantoprazole [ProTONIX] 40 mg PO DAILY 01/21/18 [History] Doxycycline Hyclate 100 mg PO DAILY 06/30/18 [History] Ranitidine [Zantac] 300 mg PO BEDTIME 11/15/18 [History] Albuterol [Ventolin HFA] 2 puff INH Q4H PRN 12/12/18 [History] Carboxymethylcellulose Sodium [Refresh Tears] 1 drop EYEBOTH ASDIRECTED PRN 07/02 [History] Ezetimibe 10 mg PO DAILY 12/12/18 [History] Fesoterodine Fumarate [Toviaz] 8 mg PO DAILY 12/12/18 [History] Insulin Glargine,Hum.Rec.Anlog [Basaglar Kwikpen U-100] 15 units SUBCUT BEDTIME 12/12/18 [History] Isosorbide Mononitrate [Imdur] 30 mg PO DAILY 12/12/18 [History] Nitroglycerin 0.4 mg SL .EVERY 5 MINUTES PRN MDD 3 TABLETS 12/12/18 [History] Umeclidinium [place] [Incruse Ellipta*] 1 inhalation INH DAILY 12/12/18 [History ] Aspirin 81 mg PO DAILY 12/14/18 [History] Insulin Aspart [NovoLOG] 0 unit SUBCUT . DIRECTED MDD UP TO 25 UNITS DAILY 08/30 [History] Past Medical History HEENT History: Reports: Other (See Below) Other HEENT History: wears reading glasses, upper denture Cardiovascular History: Reports: High Cholesterol, Hypertension, VT, Stents Other Cardiovascular History: Myocardial infarction 2013 Respiratory History: Reports: COPD Gastrointestinal History: Reports: GERD, PUD Other Gastrointestinal History: Gastroparesis, hx gastric ulcers Genitourinary History: Reports: None [employer] History: Reports: 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 History: Reports: Fracture, Osteoarthritis Other 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 History: hx fx arm Neurological History: Reports: Neuropathy, Diabetic Psychiatric History: Reports: None Endocrine/Metabolic History: Reports: Diabetes, Type I, Osteopenia Hematologic History: Reports: None Immunologic History: Reports: None Oncologic (Cancer) History: Reports: None Dermatologic History: Reports: Other (See Below) Other Dermatologic History: necrobiosis lipoidica - Infectious Disease History Infectious Disease History: Reports: None - Past Surgical History Head Surgeries/Procedures: Reports: None HEENT Surgical History: Reports: None Cardiovascular Surgical History: Reports: Coronary Artery Stent, Other (See Below) Other Cardiovascular Surgeries/Procedures: stents x 2 Respiratory Surgical History: Reports: None GI Surgical History: Reports: Appendectomy, Cholecystectomy, Colonoscopy, EGD, Other (See Below) Other GI Surgeries/Procedures: partial gastrectomy, ERCP with insertion of TUbe into bile/pancreatic dust Female Surgical History: Reports: Section, Hysterectomy, Tubal Ligation Endocrine Surgical History: Reports: None Neurological Surgical History: Reports: None 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 Surgical History: Reports: Carpal Tunnel, Shoulder Surgery, Other (See Below) Other 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 Surgeries/Procedures:: left shoulder surgery Oncologic Surgical History: Reports: None Dermatological Surgical History: Reports: Skin Graft Social & Family History - Family History Family Medical History: Noncontributory - Tobacco Use Smoking Status *Q: Former Smoker Used Tobacco, but Quit: Yes Month/Year Tobacco Last Used: 2 years - Caffeine Use Caffeine Use: Reports: None - Alcohol Use Alcohol Use History: Yes Days Per Week of Alcohol Use: 7 Number of Drinks Per Day: 2 Total Drinks Per Week: 14 Alcohol Use Frequency: Daily - Recreational Drug Use Recreational Drug Use: No - Living Situation & Occupation Living situation: Reports: 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 Denies: Fever, Chills, Malaise HEENT: Reports: No Symptoms. Denies: Headaches, Sinus Congestion, Visual Changes Pulmonary: Reports: Shortness of Breath, Cough. Denies: Wheezing, Sputum Cardiovascular: Denies: Chest Pain, Palpitations, Orthopnea, Edema, Blood Pressure Problem Gastrointestinal: Reports: No Symptoms. Denies: Abdominal Pain, Black Stool, Bloody Stool, Decreased Appetite, Nausea, Vomiting Genitourinary: Reports: No Symptoms. Denies: Dysuria, Frequency, Burning 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: Reports: Leg Pain (chronic bilateral). Denies: Neck Pain Skin: Reports: No Symptoms Psychiatric: Reports: No Symptoms Neurological: Reports: No Symptoms Hematologic/Lymphatic: Reports: No Symptoms Immunologic: Reports: No Symptoms Exam - Exam Exam: See Below - Vital Signs Vital Signs: Last Vital Signs Temp 98.5 F 12/14/18 09:09 Pulse 73 12/14/18 10:39 Resp 20 12/14/18 10:39 BP 134/73 12/14/18 10:39 Pulse Ox 92 L 12/14/18 10:39 Weight: 42.2 kg - Exam Quality Assessment: Supplemental Oxygen, DVT Prophylaxis General: Alert, Oriented HEENT: Conjunctiva Clear, Mucosa Moist & [place], Pupils Equal, Pupils Reactive Lungs: Clear to Auscultation, Normal Respiratory Effort Cardiovascular: Regular Rate, Regular Rhythm, Normal S1, Normal S2 GI/Abdominal Exam: Normal Bowel Sounds, Soft, Non-Tender Back Exam: Normal Inspection, Full Range of Motion Extremities: Normal Inspection, Normal Range of Motion, Non-Tender Skin: Dry, Intact, Wound (bilateral shins, she reports these are stable and much improved. ) Neuro Extensive - Mental Status: Alert, Oriented x3, Normal Mood/Affect, Normal Cognition Psychiatric: Alert, Normal Affect, Normal Mood - Patient Data Lab Results Last 24 hrs: Laboratory Results - last 24 hr 12/14/18 12/14/18 12/14/18 Range/Units 08:40 08:40 08:40 WBC 11.33 H (4.0-11.0) K/uL RBC 4.84 (4.30-5.90) M/uL Hgb 13.4 (12.0-16.0) g/dL Hct 41.1 (36.0-46.0) % MCV 84.9 (80.0-98.0) fL MCH 27.7 (27.0-32.0) pg MCHC 32.6 (31.0-37.0) g/dL RDW Std Deviation 47.4 (28.0-62.0) fl RDW Coeff of Hesham 15 (11.0-15.0) % Plt Count 368 (150-400) K/uL MPV 10.70 (7.40-12.00) fL Neut % (Auto) 59.7 (48.0-80.0) % Lymph % (Auto) 21.7 (16.0-40.0) % [place] % (Auto) 13.2 (0.0-15.0) % Eos % (Auto) 4.7 (0.0-7.0) % Baso % (Auto) 0.7 (0.0-1.5) % Neut # (Auto) 6.8 H (1.4-5.7) K/uL Lymph # (Auto) 2.5 H (0.6-2.4) K/uL [place] # (Auto) 1.5 H (0.0-0.8) K/uL Eos # (Auto) 0.5 (0.0-0.7) K/uL Baso # (Auto) 0.1 (0.0-0.1) K/uL Nucleated RBC % 0.0 /100WBC Nucleated RBCs # 0 K/uL ABG pH (7.35-7.45) ABG pCO2 (35-45) mmHG ABG pO2 (75-100) mmHG ABG HCO3 (22-26) mEq/L ABG Total CO2 ABG Base Excess (-2.0-2.0) Lactate 3.5 H (0.20-2.00) mmol/L Sodium 143 (136-145) mmol/L Potassium 3.7 (3.5-5.1) mmol/L Chloride 104 (98-107) mmol/L Carbon Dioxide 24.0 (21.0-32.0) mmol/L BUN 6 L (7.0-18.0) mg/dL Creatinine 0.8 (0.6-1.0) mg/dL Est Cr Clr Drug Dosing 48.57 mL/min Estimated GFR (MDRD) > 60.0 ml/min Glucose 51 L (74-106) mg/dL POC Glucose (60-110) mg/dL Calcium 8.7 (8.5-10.1) mg/dL Magnesium (1.8-2.4) mg/dL Total Bilirubin 0.4 (0.2-1.0) mg/dL AST 31 (15-37) IU/L ALT 25 (14-63) IU/L Alkaline Phosphatase 157 H (46-116) U/L Creatine Kinase 65 (26-308) U/L Troponin I < 0.050 (0.000-0.056) ng/mL Total Protein 8.3 H (6.4-8.2) g/dL Albumin 3.6 (3.4-5.0) g/dL Globulin 4.7 H (2.6-4.0) g/dL Albumin/Globulin Ratio 0.8 L (0.9-1.6) Urine Color Urine Appearance Urine pH (5.0-8.0) Ur Specific [place] (1.001-1.035) Urine Protein (NEGATIVE) mg/dL Urine Glucose (UA) (NEGATIVE) mg/dL Urine Ketones (NEGATIVE) mg/dL Urine Occult Blood (NEGATIVE) Urine Nitrite (NEGATIVE) Urine Bilirubin (NEGATIVE) Urine Urobilinogen (<2.0) EU/dL Ur Leukocyte Esterase (NEGATIVE) Urine RBC (0-2/HPF) Urine WBC (0-5/HPF) Ur Epithelial Cells (NONE-FEW) Urine Bacteria (NEGATIVE) Urine Yeast Urine Opiates Screen (NEGATIVE) Ur Oxycodone Screen (NEGATIVE) Urine Methadone Screen (NEGATIVE) Ur Barbiturates Screen (NEGATIVE) Ur Phencyclidine Scrn (NEGATIVE) Ur Amphetamine Screen (NEGATIVE) U Methamphetamines Scrn (NEGATIVE) U Benzodiazepines Scrn (NEGATIVE) U Cocaine Metab Screen (NEGATIVE) U Marijuana (THC) Screen (NEGATIVE) Ethyl Alcohol mg/dL 12/14/18 12/14/18 12/14/18 Range/Units 08:40 09:05 09:05 WBC (4.0-11.0) K/uL RBC (4.30-5.90) M/uL Hgb (12.0-16.0) g/dL Hct (36.0-46.0) % MCV (80.0-98.0) fL MCH (27.0-32.0) pg MCHC (31.0-37.0) g/dL RDW Std Deviation (28.0-62.0) fl RDW Coeff of [place] (11.0-15.0) % Plt Count (150-400) K/uL MPV (7.40-12.00) fL Neut % (Auto) (48.0-80.0) % Lymph % (Auto) (16.0-40.0) % [place] % (Auto) (0.0-15.0) % Eos % (Auto) (0.0-7.0) % Baso % (Auto) (0.0-1.5) % Neut # (Auto) (1.4-5.7) K/uL Lymph # (Auto) (0.6-2.4) K/uL [place] # (Auto) (0.0-0.8) K/uL Eos # (Auto) (0.0-0.7) K/uL Baso # (Auto) (0.0-0.1) K/uL Nucleated RBC % /100WBC Nucleated RBCs # K/uL ABG pH (7.35-7.45) ABG pCO2 (35-45) mmHG ABG pO2 (75-100) mmHG ABG HCO3 (22-26) mEq/L ABG Total CO2 ABG Base Excess (-2.0-2.0) Lactate (0.20-2.00) mmol/L Sodium (136-145) mmol/L Potassium (3.5-5.1) mmol/L Chloride (98-107) mmol/L Carbon Dioxide (21.0-32.0) mmol/L BUN (7.0-18.0) mg/dL Creatinine (0.6-1.0) mg/dL Est Cr Clr Drug Dosing mL/min Estimated GFR (MDRD) ml/min Glucose (74-106) mg/dL POC Glucose (60-110) mg/dL Calcium (8.5-10.1) mg/dL Magnesium 1.8 (1.8-2.4) mg/dL Total Bilirubin (0.2-1.0) mg/dL AST (15-37) IU/L ALT (14-63) IU/L Alkaline Phosphatase (46-116) U/L Creatine Kinase (26-308) U/L Troponin I (0.000-0.056) ng/mL Total Protein (6.4-8.2) g/dL Albumin (3.4-5.0) g/dL Globulin (2.6-4.0) g/dL Albumin/Globulin Ratio (0.9-1.6) Urine Color YELLOW Urine Appearance CLEAR Urine pH 7.0 (5.0-8.0) Ur Specific [place] 1.010 (1.001-1.035) Urine Protein TRACE H (NEGATIVE) mg/dL Urine Glucose (UA) 100 H (NEGATIVE) mg/dL Urine Ketones NEGATIVE (NEGATIVE) mg/dL Urine Occult Blood NEGATIVE (NEGATIVE) Urine Nitrite NEGATIVE (NEGATIVE) Urine Bilirubin NEGATIVE (NEGATIVE) Urine Urobilinogen 0.2 (<2.0) EU/dL Ur Leukocyte Esterase SMALL H (NEGATIVE) Urine RBC 0-2 (0-2/HPF) Urine WBC 5-10 (0-5/HPF) Ur Epithelial Cells RARE (NONE-FEW) Urine Bacteria RARE (NEGATIVE) Urine Yeast FEW Urine Opiates Screen POSITIVE (NEGATIVE) Ur Oxycodone Screen NEGATIVE (NEGATIVE) Urine Methadone Screen NEGATIVE (NEGATIVE) Ur Barbiturates Screen NEGATIVE (NEGATIVE) Ur Phencyclidine Scrn NEGATIVE (NEGATIVE) Ur Amphetamine Screen NEGATIVE (NEGATIVE) U Methamphetamines Scrn NEGATIVE (NEGATIVE) U Benzodiazepines Scrn NEGATIVE (NEGATIVE) U Cocaine Metab Screen NEGATIVE (NEGATIVE) U Marijuana (THC) Screen NEGATIVE (NEGATIVE) Ethyl Alcohol 3 mg/dL 12/14/18 12/14/18 Range/Units 09:10 09:29 WBC (4.0-11.0) K/uL RBC (4.30-5.90) M/uL Hgb (12.0-16.0) g/dL Hct (36.0-46.0) % MCV (80.0-98.0) fL MCH (27.0-32.0) pg MCHC (31.0-37.0) g/dL RDW Std Deviation (28.0-62.0) fl RDW Coeff of [place] (11.0-15.0) % Plt Count (150-400) K/uL MPV (7.40-12.00) fL Neut % (Auto) (48.0-80.0) % Lymph % (Auto) (16.0-40.0) % [place] % (Auto) (0.0-15.0) % Eos % (Auto) (0.0-7.0) % Baso % (Auto) (0.0-1.5) % Neut # (Auto) (1.4-5.7) K/uL Lymph # (Auto) (0.6-2.4) K/uL [place] # (Auto) (0.0-0.8) K/uL Eos # (Auto) (0.0-0.7) K/uL Baso # (Auto) (0.0-0.1) K/uL Nucleated RBC % /100WBC Nucleated RBCs # K/uL ABG pH 7.372 (7.35-7.45) ABG pCO2 49 H (35-45) mmHG ABG pO2 69 L (75-100) mmHG ABG HCO3 29 H (22-26) mEq/L ABG Total CO2 26.4 ABG Base Excess 2.6 H (-2.0-2.0) Lactate (0.20-2.00) mmol/L Sodium (136-145) mmol/L Potassium (3.5-5.1) mmol/L Chloride (98-107) mmol/L Carbon Dioxide (21.0-32.0) mmol/L BUN (7.0-18.0) mg/dL Creatinine (0.6-1.0) mg/dL Est Cr Clr Drug Dosing mL/min Estimated GFR (MDRD) ml/min Glucose (74-106) mg/dL POC Glucose 261 H (60-110) mg/dL Calcium (8.5-10.1) mg/dL Magnesium (1.8-2.4) mg/dL Total Bilirubin (0.2-1.0) mg/dL AST (15-37) IU/L ALT (14-63) IU/L Alkaline Phosphatase (46-116) U/L Creatine Kinase (26-308) U/L Troponin I (0.000-0.056) ng/mL Total Protein (6.4-8.2) g/dL Albumin (3.4-5.0) g/dL Globulin (2.6-4.0) g/dL Albumin/Globulin Ratio (0.9-1.6) Urine Color Urine Appearance Urine pH (5.0-8.0) Ur Specific [place] (1.001-1.035) Urine Protein (NEGATIVE) mg/dL Urine Glucose (UA) (NEGATIVE) mg/dL Urine Ketones (NEGATIVE) mg/dL Urine Occult Blood (NEGATIVE) Urine Nitrite (NEGATIVE) Urine Bilirubin (NEGATIVE) Urine Urobilinogen (<2.0) EU/dL Ur Leukocyte Esterase (NEGATIVE) Urine RBC (0-2/HPF) Urine WBC (0-5/HPF) Ur Epithelial Cells (NONE-FEW) Urine Bacteria (NEGATIVE) Urine Yeast Urine Opiates Screen (NEGATIVE) Ur Oxycodone Screen (NEGATIVE) Urine Methadone Screen (NEGATIVE) Ur Barbiturates Screen (NEGATIVE) Ur Phencyclidine Scrn (NEGATIVE) Ur Amphetamine Screen (NEGATIVE) U Methamphetamines Scrn (NEGATIVE) U Benzodiazepines Scrn (NEGATIVE) U Cocaine Metab Screen (NEGATIVE) U Marijuana (THC) Screen (NEGATIVE) Ethyl Alcohol mg/dL Result Diagrams: 12/14/18 08:40 12/14/18 08:40 - Problem List (1) Hypoglycemia SNOMED Code(s): 319933921 ICD Code: E16.2 - HYPOGLYCEMIA, UNSPECIFIED Status: Acute Current Visit: Yes (2) HTN (hypertension) SNOMED Code(s): 41691436 ICD Code: I10 - ESSENTIAL (PRIMARY) HYPERTENSION Status: Chronic Current Visit: No Qualifiers: Hypertension type: essential hypertension Qualified Code(s): I10 - Essential (primary) hypertension (3) CAD (coronary artery disease) SNOMED Code(s): 25659539 ICD Code: I25.10 - ATHSCL HEART DISEASE OF [place] CORONARY ARTERY W/O ANG PCTRS Status: Chronic Current Visit: No (4) Chronic pain SNOMED Code(s): 62802459 ICD Code: G89.29 - OTHER CHRONIC PAIN Status: Chronic Current Visit: No (5) Diabetic necrobiosis lipoidica SNOMED Code(s): 15367451 ICD Code: E11.620 - TYPE 2 DIABETES MELLITUS WITH DIABETIC DERMATITIS Status: Chronic Priority: High Current Visit: No (6) Diabetes mellitus type 1, controlled, insulin dependent SNOMED Code(s): 13973516 ICD Code: E10.9 - TYPE 1 DIABETES MELLITUS WITHOUT COMPLICATIONS Status: Chronic Priority: High Current Visit: No (7) GERD (gastroesophageal reflux disease) SNOMED Code(s): 134898829 ICD Code: K21.9 - GASTRO-ESOPHAGEAL REFLUX DISEASE WITHOUT ESOPHAGITIS Status: Acute Current Visit: No Qualifiers: Esophagitis presence: without esophagitis Qualified Code(s): K21.9 - Gastro -esophageal reflux disease without esophagitis (8) Aspiration into airway SNOMED Code(s): 652775794 ICD Code: T17.908A - UNSP FB IN RESP TRACT, PART UNSP CAUSING OTH INJURY, INIT Status: Suspected Current Visit: Yes (9) COPD (chronic obstructive pulmonary disease) SNOMED Code(s): 52438835 ICD Code: J44.9 - CHRONIC OBSTRUCTIVE PULMONARY DISEASE, UNSPECIFIED Status : Chronic Current Visit: Yes Qualifiers: COPD type: unspecified COPD Qualified Code(s): J44.9 - Chronic obstructive pulmonary disease, unspecified Problem List Initiated/Reviewed/Updated: Yes Orders Last 24hrs: Active Orders 24 hr Category Date Time Status Admission Status [Patient Status] [ADT] Stat ADT 12/14/18 11:07 Active EKG Documentation Completion [RC] STAT Care 12/14/18 09:03 Active Glucose [Blood Glucose Check, Bedside] [RC] ONETIME Care 12/14/18 09:08 Active RT Aerosol Therapy [RC] ASDIRECTED Care 12/14/18 09:20 Active CULTURE BLOOD [BC] Stat Lab 12/14/18 09:00 Received CULTURE BLOOD [BC] Stat Lab 12/14/18 09:26 Received CULTURE URINE [] Stat Lab 12/14/18 09:05 Received Piperacillin/Tazobactam [Piperacil-Tazobact] 3.375 gm Med 12/14/18 11:00 Active Sodium Chloride 0.9% [Normal Saline] 50 ml IV Q8H Blood Culture x2 Reflex Set [OM.PC] Stat Oth 12/14/18 09:04 Ordered Medication Orders Piperacillin Sod/Tazobactam (Sod 3.375 gm/ Sodium Chloride) 50 mls @ 100 mls/ hr IV Q8H MIKHAIL Assessment/Plan Comment:: This 63 year old female admitted with hypoglycemia, suspected aspiration and COPD exacerbation 1. Hypoglycemia: Monitor BS. Hold Lantus for now. Has improved since arriving in ED and receiving D50. ADA diet as tolerated. 2. Suspected Aspiration: Given Zosyn in the ED, will continue this. repeat CXR in am. 3. COPD: Continue Duonebs. Continue inhalers. Wean oxygen as tolerated to keep sats 90% 4. UTI: UC pending, Zosyn will cover UTI. asymptomatic 5. HTN: Monitor, stable. Continue home medications. 6. Chronic pain: Morphine x 1 for pain now. is bringing Tylenol #4 from home. Will continue this. VTE prophylaxis: Heparin Dispo: 1 day I spoke with Dr Downs regarding admission and upcoming colonoscopy. He will make arrangements to cancel colonoscopy and will have her make new appointment when she is back to her baseline health.
[2018-12-14] MEDS ORDERED: Ondansetron 4 MG Tab.DIS PO PRN (12:37)
[2018-12-14] MEDS ORDERED: Carboxymethylcellulose Sodium 0.5% Ophth Soln 0.4 ML UD Box of 30 EYEBOTH PRN (12:39)
[2018-12-14] MEDS ORDERED: Albuterol/Ipratropium 3.0-0.5 MG/3 ML Neb Soln NEB PRN (12:41)
[2018-12-14] MEDS: ACETAMINOPHEN WITH CODEINE PO PRN ×3 (14:05→21:50)
[2018-12-14] MEDS: Propranolol 20 MG Tab PO SCH ×2 (14:06→22:02)
[2018-12-14] MEDS: Fesoterodine Fumarate [Toviaz] 8 MG PO SCH (14:07)
[2018-12-14] MEDS: Heparin Sodium 5,000 Units/ML Vial SUBCUT SCH (14:07)
[2018-12-14] MEDS ORDERED: Sodium Chloride 0.9% 500 ML IV SCH (14:45)
[2018-12-14] MEDS: Sodium Chloride 0.9% 1,000 ML IV SCH ×2 (14:53→22:04)
[2018-12-14] MEDS ORDERED: LORazepam 2 MG/ML SDV IVPUSH ONE (17:15)
[2018-12-14] MEDS: Sodium Bicarbonate 650 MG Tab PO SCH (18:51)
[2018-12-14] MEDS: Piperacillin/Tazobactam 3.375 GM in Sodium Chloride 0.9% 50 ML IV SCH (18:52)
[2018-12-14] MEDS: Famotidine 20 MG Tab PO SCH (22:01)
[2018-12-15] MEDS: Heparin Sodium 5,000 Units/ML Vial SUBCUT SCH ×2 (01:08→13:14)
[2018-12-15] MEDS: Piperacillin/Tazobactam 3.375 GM in Sodium Chloride 0.9% 50 ML IV SCH ×4 (01:08→18:37)
[2018-12-15 06:07] LABS: CHLORIDE,CL 102 mmol/L (98-107); SODIUM,NA 138 mmol/L (136-145)
[2018-12-15] MEDS: ACETAMINOPHEN WITH CODEINE PO PRN ×4 (06:30→18:36)
[2018-12-15] MEDS: Propranolol 20 MG Tab PO SCH ×3 (06:31→22:11)
--- NOTE | 2018-12-15 08:14 | CR ---
INDICATION: Aspiration. TECHNIQUE: Two views of the chest. FINDINGS: The heart is normal in size. There is extensive central bronchial wall thickening. On the lateral view there is a linear subsegmental opacity suggesting some volume loss in the lingula, right middle lobe or both. Surgical clips are present about the area of the GE junction. No dense consolidation. No effusion or pneumothorax. IMPRESSION: 1. Chronic appearing central symmetric bronchial wall thickening. 2. Postsurgical changes of the GE junction. 3. Linear areas of opacification atelectasis right middle lobe and lingula. Would favor that these are chronic they do appear chronic on a CT scan through the lung bases 11/14/2018. Dictated by Anasatcio Green MD @ Dec 15 2018 8:10AM Signed by Dr. Anastacio Green @ Dec 15 2018 8:12AM
[2018-12-15] MEDS: Pantoprazole 40 MG Tab.CR PO SCH (08:22)
[2018-12-15] MEDS: Fludrocortisone 0.1 MG Tab PO SCH (08:22)
[2018-12-15] MEDS: amLODIPine 5 MG Tab PO SCH (08:22)
[2018-12-15] MEDS: Isosorbide Mononitrate 30 MG Tab.ER PO SCH (08:22)
[2018-12-15] MEDS: Aspirin 81 MG Tab.Chew PO SCH (08:22)
[2018-12-15] MEDS: Lisinopril 10 MG Tab PO SCH (08:23)
[2018-12-15] MEDS: Sodium Bicarbonate 650 MG Tab PO SCH ×2 (08:23→17:49)
[2018-12-15] MEDS: Clopidogrel 75 MG Tab PO SCH (08:23)
[2018-12-15] MEDS: UMECLIDINIUM BROMIDE INH SCH (08:29)
[2018-12-15] MEDS: Fesoterodine Fumarate [Toviaz] 8 MG PO SCH (08:29)
[2018-12-15] MEDS ORDERED: Insulin Glargine,Human Rec. Analog 100 Units/ML 3 ML Pen SUBCUT SCH (09:00)
--- NOTE | 2018-12-15 09:10 | PCM.PN ---
- General Info Date of Service: 12/15/18 Admission Dx/Problem (Free Text): Admission Diagnosis/Problem Admission Diagnosis/Problem Hypoglycemia Subjective Update: Feeling ok this morning, reports mild fever/chills noted her temp was 99.7. reports mild cough, but overall breathing is ok. Non productive cough. Feels very wore out. No diarrhea or abdominal pain. Tolerating diet well. BS improved overnight. Functional Status: Reports: Pain Controlled, Tolerating Diet, Ambulating, Urinating - Review of Systems General: Reports: Fever, Malaise HEENT: Reports: No Symptoms. Denies: Headaches, Sore Throat, Visual Changes Pulmonary: Reports: Shortness of Breath, Cough. Denies: Sputum, Wheezing Cardiovascular: Reports: No Symptoms. Denies: Chest Pain Gastrointestinal: Denies: Abdominal Pain, Nausea, Vomiting Genitourinary: Reports: No Symptoms. Denies: Dysuria, Frequency Skin: Reports: No Symptoms Neurological: Reports: No Symptoms Psychiatric: Reports: No Symptoms - Patient Data Vitals - Most Recent: Last Vital Signs Temp 99 F 12/15/18 07:45 Pulse 82 12/15/18 07:45 Resp 16 12/15/18 07:45 BP 150/67 H 12/15/18 08:23 Pulse Ox 94 L 12/15/18 07:45 Weight - Most Recent: 42 kg I&O - Last 24 Hours: Intake & Output 12/14/18 12/15/18 12/15/18 22:59 06:59 14:59 Intake Total 1173 2112 50 Output Total 1100 1250 Balance 73 862 50 Lab Results Last 24 Hours: Laboratory Results - last 24 hr 12/14/18 12/14/18 12/14/18 Range/Units 08:40 08:40 08:40 WBC 11.33 H (4.0-11.0) K/uL RBC 4.84 (4.30-5.90) M/uL Hgb 13.4 (12.0-16.0) g/dL Hct 41.1 (36.0-46.0) % MCV 84.9 (80.0-98.0) fL MCH 27.7 (27.0-32.0) pg MCHC 32.6 (31.0-37.0) g/dL RDW Std Deviation 47.4 (28.0-62.0) fl RDW Coeff of Hesham 15 (11.0-15.0) % Plt Count 368 (150-400) K/uL MPV 10.70 (7.40-12.00) fL Neut % (Auto) 59.7 (48.0-80.0) % Lymph % (Auto) 21.7 (16.0-40.0) % Webb % (Auto) 13.2 (0.0-15.0) % Eos % (Auto) 4.7 (0.0-7.0) % Baso % (Auto) 0.7 (0.0-1.5) % Neut # (Auto) 6.8 H (1.4-5.7) K/uL Lymph # (Auto) 2.5 H (0.6-2.4) K/uL Webb # (Auto) 1.5 H (0.0-0.8) K/uL Eos # (Auto) 0.5 (0.0-0.7) K/uL Baso # (Auto) 0.1 (0.0-0.1) K/uL Nucleated RBC % 0.0 /100WBC Nucleated RBCs # 0 K/uL ABG pH (7.35-7.45) ABG pCO2 (35-45) mmHG ABG pO2 (75-100) mmHG ABG HCO3 (22-26) mEq/L ABG Total CO2 ABG Base Excess (-2.0-2.0) Lactate 3.5 H (0.20-2.00) mmol/L Sodium 143 (136-145) mmol/L Potassium 3.7 (3.5-5.1) mmol/L Chloride 104 (98-107) mmol/L Carbon Dioxide 24.0 (21.0-32.0) mmol/L BUN 6 L (7.0-18.0) mg/dL Creatinine 0.8 (0.6-1.0) mg/dL Est Cr Clr Drug Dosing 48.57 mL/min Estimated GFR (MDRD) > 60.0 ml/min Glucose 51 L (74-106) mg/dL POC Glucose (60-110) mg/dL Calcium 8.7 (8.5-10.1) mg/dL Magnesium (1.8-2.4) mg/dL Total Bilirubin 0.4 (0.2-1.0) mg/dL AST 31 (15-37) IU/L ALT 25 (14-63) IU/L Alkaline Phosphatase 157 H (46-116) U/L Creatine Kinase 65 (26-308) U/L Troponin I < 0.050 (0.000-0.056) ng/mL Total Protein 8.3 H (6.4-8.2) g/dL Albumin 3.6 (3.4-5.0) g/dL Globulin 4.7 H (2.6-4.0) g/dL Albumin/Globulin Ratio 0.8 L (0.9-1.6) Urine Color Urine Appearance Urine pH (5.0-8.0) Ur Specific [place] (1.001-1.035) Urine Protein (NEGATIVE) mg/dL Urine Glucose (UA) (NEGATIVE) mg/dL Urine Ketones (NEGATIVE) mg/dL Urine Occult Blood (NEGATIVE) Urine Nitrite (NEGATIVE) Urine Bilirubin (NEGATIVE) Urine Urobilinogen (<2.0) EU/dL Ur Leukocyte Esterase (NEGATIVE) Urine RBC (0-2/HPF) Urine WBC (0-5/HPF) Ur Epithelial Cells (NONE-FEW) Urine Bacteria (NEGATIVE) Urine Yeast Urine Opiates Screen (NEGATIVE) Ur Oxycodone Screen (NEGATIVE) Urine Methadone Screen (NEGATIVE) Ur Barbiturates Screen (NEGATIVE) Ur Phencyclidine Scrn (NEGATIVE) Ur Amphetamine Screen (NEGATIVE) U Methamphetamines Scrn (NEGATIVE) U Benzodiazepines Scrn (NEGATIVE) U Cocaine Metab Screen (NEGATIVE) U Marijuana (THC) Screen (NEGATIVE) Ethyl Alcohol mg/dL 12/14/18 12/14/18 12/14/18 Range/Units 08:40 09:05 09:05 WBC (4.0-11.0) K/uL RBC (4.30-5.90) M/uL Hgb (12.0-16.0) g/dL Hct (36.0-46.0) % MCV (80.0-98.0) fL MCH (27.0-32.0) pg MCHC (31.0-37.0) g/dL RDW Std Deviation (28.0-62.0) fl RDW Coeff of Hesham (11.0-15.0) % Plt Count (150-400) K/uL MPV (7.40-12.00) fL Neut % (Auto) (48.0-80.0) % Lymph % (Auto) (16.0-40.0) % Webb % (Auto) (0.0-15.0) % Eos % (Auto) (0.0-7.0) % Baso % (Auto) (0.0-1.5) % Neut # (Auto) (1.4-5.7) K/uL Lymph # (Auto) (0.6-2.4) K/uL Webb # (Auto) (0.0-0.8) K/uL Eos # (Auto) (0.0-0.7) K/uL Baso # (Auto) (0.0-0.1) K/uL Nucleated RBC % /100WBC Nucleated RBCs # K/uL ABG pH (7.35-7.45) ABG pCO2 (35-45) mmHG ABG pO2 (75-100) mmHG ABG HCO3 (22-26) mEq/L ABG Total CO2 ABG Base Excess (-2.0-2.0) Lactate (0.20-2.00) mmol/L Sodium (136-145) mmol/L Potassium (3.5-5.1) mmol/L Chloride (98-107) mmol/L Carbon Dioxide (21.0-32.0) mmol/L BUN (7.0-18.0) mg/dL Creatinine (0.6-1.0) mg/dL Est Cr Clr Drug Dosing mL/min Estimated GFR (MDRD) ml/min Glucose (74-106) mg/dL POC Glucose (60-110) mg/dL Calcium (8.5-10.1) mg/dL Magnesium 1.8 (1.8-2.4) mg/dL Total Bilirubin (0.2-1.0) mg/dL AST (15-37) IU/L ALT (14-63) IU/L Alkaline Phosphatase (46-116) U/L Creatine Kinase (26-308) U/L Troponin I (0.000-0.056) ng/mL Total Protein (6.4-8.2) g/dL Albumin (3.4-5.0) g/dL Globulin (2.6-4.0) g/dL Albumin/Globulin Ratio (0.9-1.6) Urine Color YELLOW Urine Appearance CLEAR Urine pH 7.0 (5.0-8.0) Ur Specific [place] 1.010 (1.001-1.035) Urine Protein TRACE H (NEGATIVE) mg/dL Urine Glucose (UA) 100 H (NEGATIVE) mg/dL Urine Ketones NEGATIVE (NEGATIVE) mg/dL Urine Occult Blood NEGATIVE (NEGATIVE) Urine Nitrite NEGATIVE (NEGATIVE) Urine Bilirubin NEGATIVE (NEGATIVE) Urine Urobilinogen 0.2 (<2.0) EU/dL Ur Leukocyte Esterase SMALL H (NEGATIVE) Urine RBC 0-2 (0-2/HPF) Urine WBC 5-10 (0-5/HPF) Ur Epithelial Cells RARE (NONE-FEW) Urine Bacteria RARE (NEGATIVE) Urine Yeast FEW Urine Opiates Screen POSITIVE (NEGATIVE) Ur Oxycodone Screen NEGATIVE (NEGATIVE) Urine Methadone Screen NEGATIVE (NEGATIVE) Ur Barbiturates Screen NEGATIVE (NEGATIVE) Ur Phencyclidine Scrn NEGATIVE (NEGATIVE) Ur Amphetamine Screen NEGATIVE (NEGATIVE) U Methamphetamines Scrn NEGATIVE (NEGATIVE) U Benzodiazepines Scrn NEGATIVE (NEGATIVE) U Cocaine Metab Screen NEGATIVE (NEGATIVE) U Marijuana (THC) Screen NEGATIVE (NEGATIVE) Ethyl Alcohol 3 mg/dL 12/14/18 12/14/18 12/14/18 Range/Units 09:10 09:29 13:19 WBC (4.0-11.0) K/uL RBC (4.30-5.90) M/uL Hgb (12.0-16.0) g/dL Hct (36.0-46.0) % MCV (80.0-98.0) fL MCH (27.0-32.0) pg MCHC (31.0-37.0) g/dL RDW Std Deviation (28.0-62.0) fl RDW Coeff of Hesham (11.0-15.0) % Plt Count (150-400) K/uL MPV (7.40-12.00) fL Neut % (Auto) (48.0-80.0) % Lymph % (Auto) (16.0-40.0) % Webb % (Auto) (0.0-15.0) % Eos % (Auto) (0.0-7.0) % Baso % (Auto) (0.0-1.5) % Neut # (Auto) (1.4-5.7) K/uL Lymph # (Auto) (0.6-2.4) K/uL Webb # (Auto) (0.0-0.8) K/uL Eos # (Auto) (0.0-0.7) K/uL Baso # (Auto) (0.0-0.1) K/uL Nucleated RBC % /100WBC Nucleated RBCs # K/uL ABG pH 7.372 (7.35-7.45) ABG pCO2 49 H (35-45) mmHG ABG pO2 69 L (75-100) mmHG ABG HCO3 29 H (22-26) mEq/L ABG Total CO2 26.4 ABG Base Excess 2.6 H (-2.0-2.0) Lactate 3.2 H (0.20-2.00) mmol/L Sodium (136-145) mmol/L Potassium (3.5-5.1) mmol/L Chloride (98-107) mmol/L Carbon Dioxide (21.0-32.0) mmol/L BUN (7.0-18.0) mg/dL Creatinine (0.6-1.0) mg/dL Est Cr Clr Drug Dosing mL/min Estimated GFR (MDRD) ml/min Glucose (74-106) mg/dL POC Glucose 261 H (60-110) mg/dL Calcium (8.5-10.1) mg/dL Magnesium (1.8-2.4) mg/dL Total Bilirubin (0.2-1.0) mg/dL AST (15-37) IU/L ALT (14-63) IU/L Alkaline Phosphatase (46-116) U/L Creatine Kinase (26-308) U/L Troponin I (0.000-0.056) ng/mL Total Protein (6.4-8.2) g/dL Albumin (3.4-5.0) g/dL Globulin (2.6-4.0) g/dL Albumin/Globulin Ratio (0.9-1.6) Urine Color Urine Appearance Urine pH (5.0-8.0) Ur Specific [place] (1.001-1.035) Urine Protein (NEGATIVE) mg/dL Urine Glucose (UA) (NEGATIVE) mg/dL Urine Ketones (NEGATIVE) mg/dL Urine Occult Blood (NEGATIVE) Urine Nitrite (NEGATIVE) Urine Bilirubin (NEGATIVE) Urine Urobilinogen (<2.0) EU/dL Ur Leukocyte Esterase (NEGATIVE) Urine RBC (0-2/HPF) Urine WBC (0-5/HPF) Ur Epithelial Cells (NONE-FEW) Urine Bacteria (NEGATIVE) Urine Yeast Urine Opiates Screen (NEGATIVE) Ur Oxycodone Screen (NEGATIVE) Urine Methadone Screen (NEGATIVE) Ur Barbiturates Screen (NEGATIVE) Ur Phencyclidine Scrn (NEGATIVE) Ur Amphetamine Screen (NEGATIVE) U Methamphetamines Scrn (NEGATIVE) U Benzodiazepines Scrn (NEGATIVE) U Cocaine Metab Screen (NEGATIVE) U Marijuana (THC) Screen (NEGATIVE) Ethyl Alcohol mg/dL 12/14/18 12/14/18 12/14/18 Range/Units 13:33 14:04 16:05 WBC (4.0-11.0) K/uL RBC (4.30-5.90) M/uL Hgb (12.0-16.0) g/dL Hct (36.0-46.0) % MCV (80.0-98.0) fL MCH (27.0-32.0) pg MCHC (31.0-37.0) g/dL RDW Std Deviation (28.0-62.0) fl RDW Coeff of Hesham (11.0-15.0) % Plt Count (150-400) K/uL MPV (7.40-12.00) fL Neut % (Auto) (48.0-80.0) % Lymph % (Auto) (16.0-40.0) % Webb % (Auto) (0.0-15.0) % Eos % (Auto) (0.0-7.0) % Baso % (Auto) (0.0-1.5) % Neut # (Auto) (1.4-5.7) K/uL Lymph # (Auto) (0.6-2.4) K/uL Webb # (Auto) (0.0-0.8) K/uL Eos # (Auto) (0.0-0.7) K/uL Baso # (Auto) (0.0-0.1) K/uL Nucleated RBC % /100WBC Nucleated RBCs # K/uL ABG pH (7.35-7.45) ABG pCO2 (35-45) mmHG ABG pO2 (75-100) mmHG ABG HCO3 (22-26) mEq/L ABG Total CO2 ABG Base Excess (-2.0-2.0) Lactate (0.20-2.00) mmol/L Sodium (136-145) mmol/L Potassium (3.5-5.1) mmol/L Chloride (98-107) mmol/L Carbon Dioxide (21.0-32.0) mmol/L BUN (7.0-18.0) mg/dL Creatinine (0.6-1.0) mg/dL Est Cr Clr Drug Dosing mL/min Estimated GFR (MDRD) ml/min Glucose (74-106) mg/dL POC Glucose 50 L 136 H 178 H (60-110) mg/dL Calcium (8.5-10.1) mg/dL Magnesium (1.8-2.4) mg/dL Total Bilirubin (0.2-1.0) mg/dL AST (15-37) IU/L ALT (14-63) IU/L Alkaline Phosphatase (46-116) U/L Creatine Kinase (26-308) U/L Troponin I (0.000-0.056) ng/mL Total Protein (6.4-8.2) g/dL Albumin (3.4-5.0) g/dL Globulin (2.6-4.0) g/dL Albumin/Globulin Ratio (0.9-1.6) Urine Color Urine Appearance Urine pH (5.0-8.0) Ur Specific [place] (1.001-1.035) Urine Protein (NEGATIVE) mg/dL Urine Glucose (UA) (NEGATIVE) mg/dL Urine Ketones (NEGATIVE) mg/dL Urine Occult Blood (NEGATIVE) Urine Nitrite (NEGATIVE) Urine Bilirubin (NEGATIVE) Urine Urobilinogen (<2.0) EU/dL Ur Leukocyte Esterase (NEGATIVE) Urine RBC (0-2/HPF) Urine WBC (0-5/HPF) Ur Epithelial Cells (NONE-FEW) Urine Bacteria (NEGATIVE) Urine Yeast Urine Opiates Screen (NEGATIVE) Ur Oxycodone Screen (NEGATIVE) Urine Methadone Screen (NEGATIVE) Ur Barbiturates Screen (NEGATIVE) Ur Phencyclidine Scrn (NEGATIVE) Ur Amphetamine Screen (NEGATIVE) U Methamphetamines Scrn (NEGATIVE) U Benzodiazepines Scrn (NEGATIVE) U Cocaine Metab Screen (NEGATIVE) U Marijuana (THC) Screen (NEGATIVE) Ethyl Alcohol mg/dL 12/14/18 12/14/18 12/14/18 Range/Units 18:08 18:38 20:42 WBC (4.0-11.0) K/uL RBC (4.30-5.90) M/uL Hgb (12.0-16.0) g/dL Hct (36.0-46.0) % MCV (80.0-98.0) fL MCH (27.0-32.0) pg MCHC (31.0-37.0) g/dL RDW Std Deviation (28.0-62.0) fl RDW Coeff of Hesham (11.0-15.0) % Plt Count (150-400) K/uL MPV (7.40-12.00) fL Neut % (Auto) (48.0-80.0) % Lymph % (Auto) (16.0-40.0) % Webb % (Auto) (0.0-15.0) % Eos % (Auto) (0.0-7.0) % Baso % (Auto) (0.0-1.5) % Neut # (Auto) (1.4-5.7) K/uL Lymph # (Auto) (0.6-2.4) K/uL Webb # (Auto) (0.0-0.8) K/uL Eos # (Auto) (0.0-0.7) K/uL Baso # (Auto) (0.0-0.1) K/uL Nucleated RBC % /100WBC Nucleated RBCs # K/uL ABG pH (7.35-7.45) ABG pCO2 (35-45) mmHG ABG pO2 (75-100) mmHG ABG HCO3 (22-26) mEq/L ABG Total CO2 ABG Base Excess (-2.0-2.0) Lactate 1.9 (0.20-2.00) mmol/L Sodium (136-145) mmol/L Potassium (3.5-5.1) mmol/L Chloride (98-107) mmol/L Carbon Dioxide (21.0-32.0) mmol/L BUN (7.0-18.0) mg/dL Creatinine (0.6-1.0) mg/dL Est Cr Clr Drug Dosing mL/min Estimated GFR (MDRD) ml/min Glucose (74-106) mg/dL POC Glucose 176 H 189 H (60-110) mg/dL Calcium (8.5-10.1) mg/dL Magnesium (1.8-2.4) mg/dL Total Bilirubin (0.2-1.0) mg/dL AST (15-37) IU/L ALT (14-63) IU/L Alkaline Phosphatase (46-116) U/L Creatine Kinase (26-308) U/L Troponin I (0.000-0.056) ng/mL Total Protein (6.4-8.2) g/dL Albumin (3.4-5.0) g/dL Globulin (2.6-4.0) g/dL Albumin/Globulin Ratio (0.9-1.6) Urine Color Urine Appearance Urine pH (5.0-8.0) Ur Specific [place] (1.001-1.035) Urine Protein (NEGATIVE) mg/dL Urine Glucose (UA) (NEGATIVE) mg/dL Urine Ketones (NEGATIVE) mg/dL Urine Occult Blood (NEGATIVE) Urine Nitrite (NEGATIVE) Urine Bilirubin (NEGATIVE) Urine Urobilinogen (<2.0) EU/dL Ur Leukocyte Esterase (NEGATIVE) Urine RBC (0-2/HPF) Urine WBC (0-5/HPF) Ur Epithelial Cells (NONE-FEW) Urine Bacteria (NEGATIVE) Urine Yeast Urine Opiates Screen (NEGATIVE) Ur Oxycodone Screen (NEGATIVE) Urine Methadone Screen (NEGATIVE) Ur Barbiturates Screen (NEGATIVE) Ur Phencyclidine Scrn (NEGATIVE) Ur Amphetamine Screen (NEGATIVE) U Methamphetamines Scrn (NEGATIVE) U Benzodiazepines Scrn (NEGATIVE) U Cocaine Metab Screen (NEGATIVE) U Marijuana (THC) Screen (NEGATIVE) Ethyl Alcohol mg/dL 12/15/18 12/15/18 12/15/18 Range/Units 04:50 04:50 06:53 WBC 22.26 H (4.0-11.0) K/uL RBC 3.97 L (4.30-5.90) M/uL Hgb 10.8 L (12.0-16.0) g/dL Hct 33.7 L (36.0-46.0) % MCV 84.9 (80.0-98.0) fL MCH 27.2 (27.0-32.0) pg MCHC 32.0 (31.0-37.0) g/dL RDW Std Deviation 48.0 (28.0-62.0) fl RDW Coeff of Hesham 16 H (11.0-15.0) % Plt Count 282 (150-400) K/uL MPV 11.10 (7.40-12.00) fL Neut % (Auto) (48.0-80.0) % Lymph % (Auto) (16.0-40.0) % Webb % (Auto) (0.0-15.0) % Eos % (Auto) (0.0-7.0) % Baso % (Auto) (0.0-1.5) % Neut # (Auto) (1.4-5.7) K/uL Lymph # (Auto) (0.6-2.4) K/uL Webb # (Auto) (0.0-0.8) K/uL Eos # (Auto) (0.0-0.7) K/uL Baso # (Auto) (0.0-0.1) K/uL Nucleated RBC % 0.0 /100WBC Nucleated RBCs # 0 K/uL ABG pH (7.35-7.45) ABG pCO2 (35-45) mmHG ABG pO2 (75-100) mmHG ABG HCO3 (22-26) mEq/L ABG Total CO2 ABG Base Excess (-2.0-2.0) Lactate (0.20-2.00) mmol/L Sodium 138 (136-145) mmol/L Potassium 3.4 L (3.5-5.1) mmol/L Chloride 102 (98-107) mmol/L Carbon Dioxide 24.0 (21.0-32.0) mmol/L BUN 6 L (7.0-18.0) mg/dL Creatinine 0.8 (0.6-1.0) mg/dL Est Cr Clr Drug Dosing 48.34 mL/min Estimated GFR (MDRD) > 60.0 ml/min Glucose 273 H (74-106) mg/dL POC Glucose 296 H (60-110) mg/dL Calcium 7.9 L (8.5-10.1) mg/dL Magnesium (1.8-2.4) mg/dL Total Bilirubin (0.2-1.0) mg/dL AST (15-37) IU/L ALT (14-63) IU/L Alkaline Phosphatase (46-116) U/L Creatine Kinase (26-308) U/L Troponin I (0.000-0.056) ng/mL Total Protein (6.4-8.2) g/dL Albumin (3.4-5.0) g/dL Globulin (2.6-4.0) g/dL Albumin/Globulin Ratio (0.9-1.6) Urine Color Urine Appearance Urine pH (5.0-8.0) Ur Specific [place] (1.001-1.035) Urine Protein (NEGATIVE) mg/dL Urine Glucose (UA) (NEGATIVE) mg/dL Urine Ketones (NEGATIVE) mg/dL Urine Occult Blood (NEGATIVE) Urine Nitrite (NEGATIVE) Urine Bilirubin (NEGATIVE) Urine Urobilinogen (<2.0) EU/dL Ur Leukocyte Esterase (NEGATIVE) Urine RBC (0-2/HPF) Urine WBC (0-5/HPF) Ur Epithelial Cells (NONE-FEW) Urine Bacteria (NEGATIVE) Urine Yeast Urine Opiates Screen (NEGATIVE) Ur Oxycodone Screen (NEGATIVE) Urine Methadone Screen (NEGATIVE) Ur Barbiturates Screen (NEGATIVE) Ur Phencyclidine Scrn (NEGATIVE) Ur Amphetamine Screen (NEGATIVE) U Methamphetamines Scrn (NEGATIVE) U Benzodiazepines Scrn (NEGATIVE) U Cocaine Metab Screen (NEGATIVE) U Marijuana (THC) Screen (NEGATIVE) Ethyl Alcohol mg/dL 12/15/18 Range/Units 08:49 WBC (4.0-11.0) K/uL RBC (4.30-5.90) M/uL Hgb (12.0-16.0) g/dL Hct (36.0-46.0) % MCV (80.0-98.0) fL MCH (27.0-32.0) pg MCHC (31.0-37.0) g/dL RDW Std Deviation (28.0-62.0) fl RDW Coeff of Hesham (11.0-15.0) % Plt Count (150-400) K/uL MPV (7.40-12.00) fL Neut % (Auto) (48.0-80.0) % Lymph % (Auto) (16.0-40.0) % Webb % (Auto) (0.0-15.0) % Eos % (Auto) (0.0-7.0) % Baso % (Auto) (0.0-1.5) % Neut # (Auto) (1.4-5.7) K/uL Lymph # (Auto) (0.6-2.4) K/uL [place] # (Auto) (0.0-0.8) K/uL Eos # (Auto) (0.0-0.7) K/uL Baso # (Auto) (0.0-0.1) K/uL Nucleated RBC % /100WBC Nucleated RBCs # K/uL ABG pH (7.35-7.45) ABG pCO2 (35-45) mmHG ABG pO2 (75-100) mmHG ABG HCO3 (22-26) mEq/L ABG Total CO2 ABG Base Excess (-2.0-2.0) Lactate (0.20-2.00) mmol/L Sodium (136-145) mmol/L Potassium (3.5-5.1) mmol/L Chloride (98-107) mmol/L Carbon Dioxide (21.0-32.0) mmol/L BUN (7.0-18.0) mg/dL Creatinine (0.6-1.0) mg/dL Est Cr Clr Drug Dosing mL/min Estimated GFR (MDRD) ml/min Glucose (74-106) mg/dL POC Glucose 396 H (60-110) mg/dL Calcium (8.5-10.1) mg/dL Magnesium (1.8-2.4) mg/dL Total Bilirubin (0.2-1.0) mg/dL AST (15-37) IU/L ALT (14-63) IU/L Alkaline Phosphatase (46-116) U/L Creatine Kinase (26-308) U/L Troponin I (0.000-0.056) ng/mL Total Protein (6.4-8.2) g/dL Albumin (3.4-5.0) g/dL Globulin (2.6-4.0) g/dL Albumin/Globulin Ratio (0.9-1.6) Urine Color Urine Appearance Urine pH (5.0-8.0) Ur Specific [place] (1.001-1.035) Urine Protein (NEGATIVE) mg/dL Urine Glucose (UA) (NEGATIVE) mg/dL Urine Ketones (NEGATIVE) mg/dL Urine Occult Blood (NEGATIVE) Urine Nitrite (NEGATIVE) Urine Bilirubin (NEGATIVE) Urine Urobilinogen (<2.0) EU/dL Ur Leukocyte Esterase (NEGATIVE) Urine RBC (0-2/HPF) Urine WBC (0-5/HPF) Ur Epithelial Cells (NONE-FEW) Urine Bacteria (NEGATIVE) Urine Yeast Urine Opiates Screen (NEGATIVE) Ur Oxycodone Screen (NEGATIVE) Urine Methadone Screen (NEGATIVE) Ur Barbiturates Screen (NEGATIVE) Ur Phencyclidine Scrn (NEGATIVE) Ur Amphetamine Screen (NEGATIVE) U Methamphetamines Scrn (NEGATIVE) U Benzodiazepines Scrn (NEGATIVE) U Cocaine Metab Screen (NEGATIVE) U Marijuana (THC) Screen (NEGATIVE) Ethyl Alcohol mg/dL Med Orders - Current: Current Medications Albuterol/Ipratropium (Duoneb 3.0-0.5 Mg/3 Ml) 3 ml NEB Q4HRRT PRN PRN Reason: SOB/wheezing Amlodipine Besylate (Norvasc) 5 mg PO DAILY [facility] Last Admin: 12/15/18 08:22 Dose: 5 mg Artificial Tears (Refresh Plus 0.5%) 1 each EYEBOTH ASDIRECTED PRN PRN Reason: Dry Eyes Aspirin (Aspirin) 81 mg PO DAILY [facility] Last Admin: 12/15/18 08:22 Dose: 81 mg Carisoprodol (Soma) 350 mg PO TID PRN PRN Reason: Muscle Spasm Last Admin: 12/14/18 19:02 Dose: 350 mg Clopidogrel Bisulfate (Plavix) 75 mg PO DAILY [facility] Last Admin: 12/15/18 08:23 Dose: 75 mg Ezetimibe (Zetia) 10 mg PO DAILY [facility] Famotidine (Pepcid) 40 mg PO BEDTIME [facility] Last Admin: 12/14/18 22:01 Dose: 40 mg Fludrocortisone Acetate (Florinef) 0.1 mg PO DAILY [facility] Last Admin: 12/15/18 08:22 Dose: 0.1 mg Heparin Sodium (Porcine) (Heparin Sodium) 5,000 units SUBCUT Q12H [facility] Last Admin: 12/15/18 01:08 Dose: 5,000 units Piperacillin Sod/Tazobactam (Sod 3.375 gm/ Sodium Chloride) 50 mls @ 100 mls/ hr IV Q6H [facility] Last Admin: 12/15/18 06:32 Dose: 100 mls/hr Insulin Aspart (Novolog) 0 unit SUBCUT TIDAC [facility]; Protocol Insulin Glargine (Lantus Solostar) 5 units SUBCUT DAILY [facility] Isosorbide Mononitrate (Imdur) 30 mg PO DAILY [facility] Last Admin: 12/15/18 08:22 Dose: 30 mg Lisinopril (Prinivil) 10 mg PO DAILY [facility] Last Admin: 12/15/18 08:23 Dose: 10 mg Ondansetron HCl (Zofran Odt) 4 mg PO Q4H PRN PRN Reason: nausea, able to take PO Pantoprazole Sodium (Protonix) 40 mg PO DAILY [facility] Last Admin: 12/15/18 08:22 Dose: 40 mg Acetaminophen With Codeine [ Acetaminophen-Cod #4 2 each PO Q4H PRN PRN Reason: Pain Last Admin: 12/15/18 06:30 Dose: 2 each Fesoterodine Fumarate [Toviaz] 8 Mg 1 each PO DAILY [facility] Last Admin: 12/15/18 08:29 Dose: Not Given (Umeclidinium [place] 1 Inhalation ) 1 each INH DAILY [facility] Last Admin: 12/15/18 08:29 Dose: Not Given Propranolol HCl (Inderal) 10 mg PO TID [facility] Last Admin: 12/15/18 06:31 Dose: 10 mg Sodium Bicarbonate (Sodium Bicarbonate) 650 mg PO BIDMEALS [facility] Last Admin: 12/15/18 08:23 Dose: 650 mg Discontinued Medications Albuterol/Ipratropium (Duoneb 3.0-0.5 Mg/3 Ml) 3 ml NEB ONETIME ONE Stop: 12/14/18 09:21 Last Admin: 12/14/18 09:23 Dose: 3 ml Dextrose/Water (Dextrose 50% In Water) 50 ml IVPUSH ONETIME ONE Stop: 12/14/18 09:09 Last Admin: 12/14/18 09:22 Dose: 50 ml Dextrose/Water (Dextrose 50% In Water) 25 ml IVPUSH ONETIME ONE Stop: 12/14/18 13:53 Last Admin: 12/14/18 14:14 Dose: Not Given Sodium Chloride (Normal Saline) 1,000 mls @ 500 mls/hr IV STAT ONE Stop: 12/14/18 11:07 Last Admin: 12/14/18 09:22 Dose: 500 mls/hr Piperacillin Sod/Tazobactam (Sod 3.375 gm/ Sodium Chloride) 50 mls @ 100 mls/ hr IV Q8H [facility] Last Admin: 12/14/18 13:21 Dose: 100 mls/hr Piperacillin Sod/Tazobactam (Sod 3.375 gm/ Sodium Chloride) 50 mls @ 100 mls/ hr IV Q6H [facility] Sodium Chloride (Normal Saline) 1,000 mls @ 100 mls/hr IV ASDIRECTED [facility] Last Admin: 12/14/18 22:04 Dose: 100 mls/hr Sodium Chloride (Normal Saline) 500 mls @ 999 mls/hr IV .BOLUS [facility] Last Admin: 12/14/18 14:53 Dose: 999 mls/hr Ketorolac Tromethamine (Toradol) 30 mg IVPUSH ONETIME ONE Stop: 12/14/18 09:30 Last Admin: 12/14/18 09:40 Dose: 30 mg Lorazepam (Ativan) 1 mg IVPUSH ONETIME ONE Stop: 12/14/18 17:16 Last Admin: 12/14/18 17:27 Dose: 1 mg Morphine Sulfate (Morphine) 2 mg IVPUSH ONETIME ONE Stop: 12/14/18 11:52 Last Admin: 12/14/18 12:15 Dose: 2 mg - Exam General: Alert, Oriented, Cooperative, No Acute Distress Lungs: Clear to Auscultation, Normal Respiratory Effort Cardiovascular: Regular Rate, Regular Rhythm GI/Abdominal Exam: Normal Bowel Sounds, Soft, Non-Tender, No Distention Extremities: Normal Inspection, Normal Range of Motion, Non-Tender, No Pedal Edema Neurological: No New Focal Deficit Psy/Mental Status: Alert, Normal Affect, Normal Mood - Problem List & Annotations (1) Hypoglycemia SNOMED Code(s): 060845485 Code(s): E16.2 - HYPOGLYCEMIA, UNSPECIFIED Status: Acute Current Visit: Yes (2) HTN (hypertension) SNOMED Code(s): 61589105 Code(s): I10 - ESSENTIAL (PRIMARY) HYPERTENSION Status: Chronic Current Visit: No Qualifiers: Hypertension type: essential hypertension Qualified Code(s): I10 - Essential (primary) hypertension (3) CAD (coronary artery disease) SNOMED Code(s): 99107237 Code(s): I25.10 - ATHSCL HEART DISEASE OF [place] CORONARY ARTERY W/O ANG PCTRS Status: Chronic Current Visit: No (4) Chronic pain SNOMED Code(s): 75418928 Code(s): G89.29 - OTHER CHRONIC PAIN Status: Chronic Current Visit: No (5) Diabetic necrobiosis lipoidica SNOMED Code(s): 98082116 Code(s): E11.620 - TYPE 2 DIABETES MELLITUS WITH DIABETIC DERMATITIS Status : Chronic Priority: High Current Visit: No (6) Diabetes mellitus type 1, controlled, insulin dependent SNOMED Code(s): 03136546 Code(s): E10.9 - TYPE 1 DIABETES MELLITUS WITHOUT COMPLICATIONS Status: Chronic Priority: High Current Visit: No (7) GERD (gastroesophageal reflux disease) SNOMED Code(s): 209303023 Code(s): K21.9 - GASTRO-ESOPHAGEAL REFLUX DISEASE WITHOUT ESOPHAGITIS Status: Acute Current Visit: No Qualifiers: Esophagitis presence: without esophagitis Qualified Code(s): K21.9 - Gastro -esophageal reflux disease without esophagitis (8) Aspiration into airway SNOMED Code(s): 013954847 Code(s): T17.908A - UNSP FB IN RESP TRACT, PART UNSP CAUSING OTH INJURY, INIT Status: Suspected Current Visit: Yes (9) COPD (chronic obstructive pulmonary disease) SNOMED Code(s): 79055069 Code(s): J44.9 - CHRONIC OBSTRUCTIVE PULMONARY DISEASE, UNSPECIFIED Status : Chronic Current Visit: Yes Qualifiers: COPD type: unspecified COPD Qualified Code(s): J44.9 - Chronic obstructive pulmonary disease, unspecified - Problem List Review Problem List Initiated/Reviewed/Updated: Yes - My Orders Last 24 Hours: My Active Orders 12/14/18 12:37 Blood Glucose Check, Bedside [RC] TIDAC Oxygen Therapy [RC] PRN Up ad [place] [RC] ASDIRECTED VTE/DVT Education [RC] PER UNIT ROUTINE Vital Signs [RC] Q4H Ondansetron [Zofran ODT] 4 mg PO Q4H PRN Resuscitation Status Routine 12/14/18 12:38 Intake and Output [RC] Q12H 12/14/18 12:39 Carboxymethylcellulose Sodium [Refresh Plus 0.5%] 1 each EYEBOTH ASDIRECTED PRN Carisoprodol [Soma] 350 mg PO TID PRN Patient's Own Medication [Ptom] 2 each PO Q4H PRN 12/14/18 12:41 RT Aerosol Therapy [RC] ASDIRECTED Albuterol/Ipratropium [DuoNeb 3.0-0.5 MG/3 ML] 3 ml NEB Q4HRRT PRN 12/14/18 12:45 Heparin Sodium 5,000 units SUBCUT Q12H 12/14/18 13:00 Patient's Own Medication [Ptom] 1 each PO DAILY 12/14/18 14:00 Propranolol [Inderal] 10 mg PO TID 12/14/18 14:35 Communication Order [RC] ROUTINE 12/14/18 17:00 Communication Order [RC] ROUTINE Sodium Bicarbonate 650 mg PO BIDMEALS 12/14/18 19:30 Piperacillin/Tazobactam [Piperacil-Tazobact] 3.375 gm Sodium Chloride 0.9% [ Normal Saline] 50 ml IV Q6H 12/14/18 21:00 Famotidine [Pepcid] 40 mg PO BEDTIME 12/14/18 Lunch [employer] Diet [DIET] 12/15/18 08:51 Insulin Aspart [NovoLOG] See Protocol SUBCUT TIDAC 12/15/18 09:00 Aspirin 81 mg PO DAILY Clopidogrel [Plavix] 75 mg PO DAILY Ezetimibe [Zetia] 10 mg PO DAILY Fludrocortisone [Florinef] 0.1 mg PO DAILY Insulin Glarg,Human.Rec.Analog [LantUS Solostar] 5 units SUBCUT DAILY Isosorbide Mononitrate [Imdur] 30 mg PO DAILY Lisinopril [Prinivil] 10 mg PO DAILY Pantoprazole [ProTONIX] 40 mg PO DAILY Patient's Own Medication [Ptom] 1 each INH DAILY amLODIPine [Norvasc] 5 mg PO DAILY - Plan Plan:: This 63 year old female admitted with hypoglycemia, suspected aspiration and COPD exacerbation 1. DM type 1: Monitor BS. BS improved overnight and she is eating. Will start Novolog SSI and Lantus 5 units this morning. 2. Suspected Aspiration: Repeat CXR this morning negative. Chronic findings. reports subjective fevers and chills, with temp 99.7. Leukocytosis 22,000 today. 3. COPD: Continue Duonebs. Continue inhalers. Weaned off oxygen yesterday. 4. UTI: UC pending, Zosyn will cover UTI. asymptomatic 5. HTN: Monitor, stable. Continue home medications. 6. Chronic pain: Stable. continue Tylenol #4 from home. Will continue this. VTE prophylaxis: Heparin Dispo: 1 day, pending improvement of leukocytosis
[2018-12-15] MEDS: Insulin Aspart 100 Units/ML 3 ML Pen SUBCUT SCH ×3 (09:20→17:57)
[2018-12-15] MEDS: Ezetimibe 10 MG Tab PO SCH (09:28)
[2018-12-15] MEDS: Famotidine 20 MG Tab PO SCH (20:46)
[2018-12-16] MEDS: Heparin Sodium 5,000 Units/ML Vial SUBCUT SCH (00:37)
[2018-12-16] MEDS: Piperacillin/Tazobactam 3.375 GM in Sodium Chloride 0.9% 50 ML IV SCH ×2 (00:37→06:41)
[2018-12-16] MEDS ORDERED: Insulin Aspart 100 Units/ML 3 ML Pen SUBCUT STA (04:47)
[2018-12-16] MEDS: ACETAMINOPHEN WITH CODEINE PO PRN ×2 (04:55→08:57)
[2018-12-16] MEDS: Propranolol 20 MG Tab PO SCH (06:42)
[2018-12-16] MEDS: Sodium Bicarbonate 650 MG Tab PO SCH (07:42)
[2018-12-16] MEDS: Insulin Aspart 100 Units/ML 3 ML Pen SUBCUT SCH ×2 (07:43→12:00)
[2018-12-16] MEDS: Ezetimibe 10 MG Tab PO SCH (08:53)
[2018-12-16] MEDS: Pantoprazole 40 MG Tab.CR PO SCH (08:54)
[2018-12-16] MEDS: Aspirin 81 MG Tab.Chew PO SCH (08:54)
[2018-12-16] MEDS: Fludrocortisone 0.1 MG Tab PO SCH (08:54)
[2018-12-16] MEDS: Clopidogrel 75 MG Tab PO SCH (08:54)
[2018-12-16] MEDS: amLODIPine 5 MG Tab PO SCH (08:56)
[2018-12-16] MEDS: Lisinopril 10 MG Tab PO SCH (08:56)
[2018-12-16] MEDS: Isosorbide Mononitrate 30 MG Tab.ER PO SCH (08:56)
[2018-12-16] MEDS: Fesoterodine Fumarate [Toviaz] 8 MG PO SCH (08:58)
[2018-12-16] MEDS: UMECLIDINIUM BROMIDE INH SCH (08:59)
[2018-12-16] MEDS ORDERED: Insulin Glargine,Human Rec. Analog 100 Units/ML 3 ML Pen SUBCUT SCH (09:00)
--- NOTE | 2018-12-16 11:40 | PCM.DCSUM1 ---
Discharge Summary - Hospital Course Brief History: This 63 year old female with pmh of CAD, COPD, partial gastrectomy due to ulcer disease, DM type 1 and chronic lower leg pain presented to the ED today via EMS with hypoglycemia. Her reports her continuous glucose meter signaled him around 0400 this morning for a low glucose. He found her on the cough, unresponsive and tried giving her oral glucose, but then noted gurgling and called EMS. EMS recorded a blood sugar in the 20s. She arrived to the ED more alert, BS in the 40-50s and was given D50 with new IV start and has since been more alert and oriented. She reports she has been eating less and a soft diet with schedule colonoscopy scheduled with Dr Downs this Wednesday. She reports she took 9 units of Lantus 7/2 am and around lunchtime yesterday took fast acting. She denies taking fast acting with supper. Then she had an alcoholic drink last night, reports she had more than one and then fell asleep. She denies recent chest pain, cough or fevers. She reports this morning she feels a congested cough. In the ED leukocytosis of 11,330 noted, Glucose 51, but has since increased to 200s. UA revealed small leukocyte esterase, pyruia 5-10. ETOH 3, CXR negative. She is requiring 5l NC to keep sats mid to low 90s. She was given NS 1 L bolus and toradol for chronic leg pain. She was also given Zosyn. She will be admitted to monitor hypoglycemia and monitor hypoxia and cough. PCP, Dr Verma Diagnosis: Stroke: No - Discharge Data Discharge Date: 12/16/18 Discharge Disposition: Home, Self-Care 01 Condition: Good - Discharge Diagnosis/Problem(s) (1) Hypoglycemia SNOMED Code(s): 615526294 ICD Code: E16.2 - HYPOGLYCEMIA, UNSPECIFIED Status: Resolved (2) HTN (hypertension) SNOMED Code(s): 68209537 ICD Code: I10 - ESSENTIAL (PRIMARY) HYPERTENSION Status: Chronic Qualifiers: Hypertension type: essential hypertension Qualified Code(s): I10 - Essential (primary) hypertension (3) CAD (coronary artery disease) SNOMED Code(s): 15342194 ICD Code: I25.10 - ATHSCL HEART DISEASE OF [place] CORONARY ARTERY W/O ANG PCTRS Status: Chronic (4) Chronic pain SNOMED Code(s): 12703920 ICD Code: G89.29 - OTHER CHRONIC PAIN Status: Chronic (5) Diabetic necrobiosis lipoidica SNOMED Code(s): 67258815 ICD Code: E11.620 - TYPE 2 DIABETES MELLITUS WITH DIABETIC DERMATITIS Status: Chronic Priority: High (6) Diabetes mellitus type 1, controlled, insulin dependent SNOMED Code(s): 02521905 ICD Code: E10.9 - TYPE 1 DIABETES MELLITUS WITHOUT COMPLICATIONS Status: Chronic Priority: High (7) GERD (gastroesophageal reflux disease) SNOMED Code(s): 084598717 ICD Code: K21.9 - GASTRO-ESOPHAGEAL REFLUX DISEASE WITHOUT ESOPHAGITIS Status: Acute Qualifiers: Esophagitis presence: without esophagitis Qualified Code(s): K21.9 - Gastro -esophageal reflux disease without esophagitis (8) Aspiration into airway SNOMED Code(s): 982782344 ICD Code: T17.908A - UNSP FB IN RESP TRACT, PART UNSP CAUSING OTH INJURY, INIT Status: Suspected (9) COPD (chronic obstructive pulmonary disease) SNOMED Code(s): 33013003 ICD Code: J44.9 - CHRONIC OBSTRUCTIVE PULMONARY DISEASE, UNSPECIFIED Status : Chronic Qualifiers: COPD type: unspecified COPD Qualified Code(s): J44.9 - Chronic obstructive pulmonary disease, unspecified - Patient Instructions Diet: Usual Diet as Tolerated, Diabetic Diet Activity: As Tolerated Driving: Do Not Drive Showering/Bathing: May Shower Notify Provider of: Fever, Increased Pain, Swelling and Redness, Drainage, Nausea and/or Vomiting - Discharge Plan *PRESCRIPTION DRUG MONITORING PROGRAM REVIEWED*: Not Applicable *COPY OF PRESCRIPTION DRUG MONITORING REPORT IN PATIENT ESTEPHANIA: Not Applicable Prescriptions/Med Rec: Amoxicillin/Potassium Clav [Augmentin 875-125 Tablet] 1 each PO BID #10 tablet Home Medications: Home Meds Acetaminophen with Codeine [Acetaminophen-Cod #4] 2 tab PO Q4HR PRN 01/18/15 [ History] Fludrocortisone [Florinef] 0.1 mg PO DAILY 01/18/15 [History] Propranolol HCl 10 mg PO TID 01/18/15 [History] Sodium Bicarbonate 650 mg PO BIDMEALS 01/18/15 [History] amLODIPine [Norvasc] 5 mg PO DAILY 01/18/15 [History] Carisoprodol 350 mg PO TID PRN 01/21/18 [History] Clopidogrel Bisulfate [Clopidogrel] 75 mg PO DAILY 01/21/18 [History] Lisinopril 10 mg PO DAILY 01/21/18 [History] Ondansetron HCl [Zofran] 4 mg PO TID PRN 01/21/18 [History] Pantoprazole [ProTONIX] 40 mg PO DAILY 01/21/18 [History] Doxycycline Hyclate 100 mg PO DAILY 06/30/18 [History] Ranitidine [Zantac] 300 mg PO BEDTIME 11/15/18 [History] Albuterol [Ventolin HFA] 2 puff INH Q4H PRN 12/12/18 [History] Carboxymethylcellulose Sodium [Refresh Tears] 1 drop EYEBOTH ASDIRECTED PRN 07/02 [History] Ezetimibe 10 mg PO DAILY 12/12/18 [History] Fesoterodine Fumarate [Toviaz] 8 mg PO DAILY 12/12/18 [History] Insulin Glargine,Hum.Rec.Anlog [Basaglar Kwikpen U-100] 15 units SUBCUT BEDTIME 12/12/18 [History] Isosorbide Mononitrate [Imdur] 30 mg PO DAILY 12/12/18 [History] Nitroglycerin 0.4 mg SL .EVERY 5 MINUTES PRN MDD 3 TABLETS 12/12/18 [History] Umeclidinium [place] [Incruse Ellipta*] 1 inhalation INH DAILY 12/12/18 [History ] Aspirin 81 mg PO DAILY 12/14/18 [History] Insulin Aspart [NovoLOG] 0 unit SUBCUT . DIRECTED MDD UP TO 25 UNITS DAILY 08/30 [History] Amoxicillin/Potassium Clav [Augmentin 875-125 Tablet] 1 each PO BID #10 tablet 12/16/18 [Rx] Oxygen Therapy Mode: Room Air Patient Handouts: Chronic Obstructive Pulmonary Disease Exacerbation, Easy-to- Read, Urinary Tract Infection, Adult, Hypoglycemia, [id number] Referrals: Oskar Verma MD [Physician] - 12/19/18 10:00 am - Discharge Summary/Plan Comment DC Time >30 min.: No Discharge Summary/Plan Comment: Admitting Diagnoses: Hypoglycemia Suspected aspiration PNA Discharge Diagnoses: Suspected aspiration PNA DM Type 1 Other PMH: HTN Necrobiosis lipoidica GERD CAD COPD Hx partial gastrectomy Zakiya was admitted secondary to hypoglycemia episode at home. Leukocytosis increased to 22,000 on day 2 of admission. She was feeling welling. We monitored one more night and continued Aosyn for aspiration pneumonia. She was weaned off oxygen CXR negative. BS improved, Lantus restarted as well as Novolog. Will continue Augmentin for 5 more days, total 7 day treatment. She has follow up with Dr Verma on Wednesday. She is to continue all home medications as prescribed. She had colonoscopy planned for today with Dr Downs, this was cancelled and to be rescheduled with Dr Downs at a later date. She is to return to ED or clinic if concerns should arise. - General Info Date of Service: 12/16/18 Admission Dx/Problem (Free Text: Admission Diagnosis/Problem Admission Diagnosis/Problem Hypoglycemia Subjective Update: Eager for discharge, all dressed and ready to go. Feels good today. No chest pain or SOB. BS improved. Functional Status: Reports: Pain Controlled, Tolerating Diet, Ambulating, Urinating - Review of Systems General: Reports: No Symptoms. Denies: Weakness, Fatigue HEENT: Reports: No Symptoms. Denies: Sore Throat, Visual Changes Pulmonary: Reports: No Symptoms. Denies: Shortness of Breath Cardiovascular: Reports: No Symptoms. Denies: Chest Pain Gastrointestinal: Reports: Nausea (overnight, which happens at times iwth her hx of partial gastrectomy). Denies: Abdominal Pain, Vomiting Genitourinary: Reports: No Symptoms 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: Reports: No Symptoms Skin: Reports: No Symptoms Neurological: Reports: No Symptoms Psychiatric: Reports: No Symptoms - Patient Data Vitals - Most Recent: Last Vital Signs Temp 98.4 F 12/16/18 07:24 Pulse 74 12/16/18 07:24 Resp 16 12/16/18 07:24 BP 116/63 12/16/18 08:56 Pulse Ox 95 12/16/18 07:24 Weight - Most Recent: 42 kg I&O - Last 24 hours: Intake & Output 12/15/18 12/16/18 12/16/18 22:59 06:59 14:59 Intake Total 790 1200 120 Output Total 1500 1150 Balance -710 50 120 Lab Results - Last 24 hrs: Laboratory Results - last 24 hr 12/15/18 12/15/18 12/15/18 Range/Units 13:22 16:01 17:45 WBC (4.0-11.0) K/uL RBC (4.30-5.90) M/uL Hgb (12.0-16.0) g/dL Hct (36.0-46.0) % MCV (80.0-98.0) fL MCH (27.0-32.0) pg MCHC (31.0-37.0) g/dL RDW Std Deviation (28.0-62.0) fl RDW Coeff of [place]es[place] (11.0-15.0) % Plt Count (150-400) K/uL MPV (7.40-12.00) fL Neut % (Auto) (48.0-80.0) % Lymph % (Auto) (16.0-40.0) % Dawes % (Auto) (0.0-15.0) % Eos % (Auto) (0.0-7.0) % Baso % (Auto) (0.0-1.5) % Neut # (Auto) (1.4-5.7) K/uL Lymph # (Auto) (0.6-2.4) K/uL Dawes # (Auto) (0.0-0.8) K/uL Eos # (Auto) (0.0-0.7) K/uL Baso # (Auto) (0.0-0.1) K/uL Nucleated RBC % /100WBC Nucleated RBCs # K/uL Sodium (136-145) mmol/L Potassium (3.5-5.1) mmol/L Chloride (98-107) mmol/L Carbon Dioxide (21.0-32.0) mmol/L BUN (7.0-18.0) mg/dL Creatinine (0.6-1.0) mg/dL Est Cr Clr Drug Dosing mL/min Estimated GFR (MDRD) ml/min Glucose (74-106) mg/dL POC Glucose 388 H 383 H 358 H (60-110) mg/dL Calcium (8.5-10.1) mg/dL 12/15/18 12/16/18 12/16/18 Range/Units 22:10 05:00 05:37 WBC 18.94 H (4.0-11.0) K/uL RBC 3.77 L (4.30-5.90) M/uL Hgb 10.3 L (12.0-16.0) g/dL Hct 33.3 L (36.0-46.0) % MCV 88.3 (80.0-98.0) fL MCH 27.3 (27.0-32.0) pg MCHC 30.9 L (31.0-37.0) g/dL RDW Std Deviation 51.8 (28.0-62.0) fl RDW Coeff of [place]es[place] 16 H (11.0-15.0) % Plt Count 267 (150-400) K/uL MPV 10.90 (7.40-12.00) fL Neut % (Auto) 91.4 H (48.0-80.0) % Lymph % (Auto) 3.5 L (16.0-40.0) % Dawes % (Auto) 4.7 (0.0-15.0) % Eos % (Auto) 0.2 (0.0-7.0) % Baso % (Auto) 0.2 (0.0-1.5) % Neut # (Auto) 17.3 H (1.4-5.7) K/uL Lymph # (Auto) 0.7 (0.6-2.4) K/uL Dawes # (Auto) 0.9 H (0.0-0.8) K/uL Eos # (Auto) 0.0 (0.0-0.7) K/uL Baso # (Auto) 0.0 (0.0-0.1) K/uL Nucleated RBC % 0.0 /100WBC Nucleated RBCs # 0 K/uL Sodium (136-145) mmol/L Potassium (3.5-5.1) mmol/L Chloride (98-107) mmol/L Carbon Dioxide (21.0-32.0) mmol/L BUN (7.0-18.0) mg/dL Creatinine (0.6-1.0) mg/dL Est Cr Clr Drug Dosing mL/min Estimated GFR (MDRD) ml/min Glucose (74-106) mg/dL POC Glucose 333 H 376 H (60-110) mg/dL Calcium (8.5-10.1) mg/dL 12/16/18 12/16/18 Range/Units 05:37 06:37 WBC (4.0-11.0) K/uL RBC (4.30-5.90) M/uL Hgb (12.0-16.0) g/dL Hct (36.0-46.0) % MCV (80.0-98.0) fL MCH (27.0-32.0) pg MCHC (31.0-37.0) g/dL RDW Std Deviation (28.0-62.0) fl RDW Coeff of [place]es[place] (11.0-15.0) % Plt Count (150-400) K/uL MPV (7.40-12.00) fL Neut % (Auto) (48.0-80.0) % Lymph % (Auto) (16.0-40.0) % Dawes % (Auto) (0.0-15.0) % Eos % (Auto) (0.0-7.0) % Baso % (Auto) (0.0-1.5) % Neut # (Auto) (1.4-5.7) K/uL Lymph # (Auto) (0.6-2.4) K/uL Dawes # (Auto) (0.0-0.8) K/uL Eos # (Auto) (0.0-0.7) K/uL Baso # (Auto) (0.0-0.1) K/uL Nucleated RBC % /100WBC Nucleated RBCs # K/uL Sodium 138 (136-145) mmol/L Potassium 4.0 (3.5-5.1) mmol/L Chloride 100 (98-107) mmol/L Carbon Dioxide 15.4 L (21.0-32.0) mmol/L BUN 13 (7.0-18.0) mg/dL Creatinine 1.0 (0.6-1.0) mg/dL Est Cr Clr Drug Dosing 38.68 mL/min Estimated GFR (MDRD) 56.2 ml/min Glucose 391 H (74-106) mg/dL POC Glucose 383 H (60-110) mg/dL Calcium 8.5 (8.5-10.1) mg/dL BRENDAN Results - Last 24 hrs: Microbiology 12/14/18 09:26 Aerobic Blood Culture - Preliminary Blood - Venous - Lab Draw NO GROWTH AFTER 2 DAYS Anaerobic Blood Culture - Preliminary NO GROWTH AFTER 2 DAYS 12/14/18 09:00 Aerobic Blood Culture - Preliminary Blood - Venous NO GROWTH AFTER 2 DAYS Anaerobic Blood Culture - Preliminary NO GROWTH AFTER 2 DAYS 12/14/18 09:05 Urine Culture - Final Urine, Catheterized No Growth Med Orders - Current: Current Medications Albuterol/Ipratropium (Duoneb 3.0-0.5 Mg/3 Ml) 3 ml NEB Q4HRRT PRN PRN Reason: SOB/wheezing Amlodipine Besylate (Norvasc) 5 mg PO DAILY [facility] Last Admin: 12/16/18 08:56 Dose: 5 mg Artificial Tears (Refresh Plus 0.5%) 1 each EYEBOTH ASDIRECTED PRN PRN Reason: Dry Eyes Aspirin (Aspirin) 81 mg PO DAILY [facility] Last Admin: 12/16/18 08:54 Dose: 81 mg Carisoprodol (Soma) 350 mg PO TID PRN PRN Reason: Muscle Spasm Last Admin: 12/15/18 18:37 Dose: 350 mg Clopidogrel Bisulfate (Plavix) 75 mg PO DAILY [facility] Last Admin: 12/16/18 08:54 Dose: 75 mg Ezetimibe (Zetia) 10 mg PO DAILY [facility] Last Admin: 12/16/18 08:53 Dose: 10 mg Fludrocortisone Acetate (Florinef) 0.1 mg PO DAILY [facility] Last Admin: 12/16/18 08:54 Dose: 0.1 mg Heparin Sodium (Porcine) (Heparin Sodium) 5,000 units SUBCUT Q12H [facility] Last Admin: 12/16/18 00:37 Dose: 5,000 units Piperacillin Sod/Tazobactam (Sod 3.375 gm/ Sodium Chloride) 50 mls @ 100 mls/ hr IV Q6H [facility] Last Admin: 12/16/18 06:41 Dose: 100 mls/hr Insulin Aspart (Novolog) 0 unit SUBCUT TIDAC [facility]; Protocol Last Admin: 12/16/18 07:43 Dose: 5 units Insulin Glargine (Lantus Solostar) 10 units SUBCUT DAILY [facility] Last Admin: 12/16/18 09:00 Dose: 10 units Isosorbide Mononitrate (Imdur) 30 mg PO DAILY [facility] Last Admin: 12/16/18 08:56 Dose: 30 mg Lisinopril (Prinivil) 10 mg PO DAILY [facility] Last Admin: 12/16/18 08:56 Dose: 10 mg Ondansetron HCl (Zofran Odt) 4 mg PO Q4H PRN PRN Reason: nausea, able to take PO Last Admin: 12/16/18 03:15 Dose: 4 mg Pantoprazole Sodium (Protonix) 40 mg PO DAILY [facility] Last Admin: 12/16/18 08:54 Dose: 40 mg Acetaminophen With Codeine [ Acetaminophen-Cod #4 2 each PO Q4H PRN PRN Reason: Pain Last Admin: 12/16/18 08:57 Dose: 2 each Fesoterodine Fumarate [Toviaz] 8 Mg 1 each PO DAILY [facility] Last Admin: 12/16/18 08:58 Dose: Not Given (Umeclidinium [place] 1 Inhalation ) 1 each INH DAILY [facility] Last Admin: 12/16/18 08:59 Dose: Not Given Propranolol HCl (Inderal) 10 mg PO TID [facility] Last Admin: 12/16/18 06:42 Dose: 10 mg Ranitidine HCl (Zantac) 300 mg PO BEDTIME [facility] Sodium Bicarbonate (Sodium Bicarbonate) 650 mg PO BIDMEALS [facility] Last Admin: 12/16/18 07:42 Dose: 650 mg Discontinued Medications Albuterol/Ipratropium (Duoneb 3.0-0.5 Mg/3 Ml) 3 ml NEB ONETIME ONE Stop: 12/14/18 09:21 Last Admin: 12/14/18 09:23 Dose: 3 ml Dextrose/Water (Dextrose 50% In Water) 50 ml IVPUSH ONETIME ONE Stop: 12/14/18 09:09 Last Admin: 12/14/18 09:22 Dose: 50 ml Dextrose/Water (Dextrose 50% In Water) 25 ml IVPUSH ONETIME ONE Stop: 12/14/18 13:53 Last Admin: 12/14/18 14:14 Dose: Not Given Famotidine (Pepcid) 40 mg PO BEDTIME [facility] Last Admin: 12/15/18 20:46 Dose: Not Given Sodium Chloride (Normal Saline) 1,000 mls @ 500 mls/hr IV STAT ONE Stop: 12/14/18 11:07 Last Admin: 12/14/18 09:22 Dose: 500 mls/hr Piperacillin Sod/Tazobactam (Sod 3.375 gm/ Sodium Chloride) 50 mls @ 100 mls/ hr IV Q8H [facility] Last Admin: 12/14/18 13:21 Dose: 100 mls/hr Piperacillin Sod/Tazobactam (Sod 3.375 gm/ Sodium Chloride) 50 mls @ 100 mls/ hr IV Q6H [facility] Sodium Chloride (Normal Saline) 1,000 mls @ 100 mls/hr IV ASDIRECTED [facility] Last Admin: 12/14/18 22:04 Dose: 100 mls/hr Sodium Chloride (Normal Saline) 500 mls @ 999 mls/hr IV .BOLUS [facility] Last Admin: 12/14/18 14:53 Dose: 999 mls/hr Insulin Aspart (Novolog) 0 unit SUBCUT NOW [facility] Stop: 12/16/18 04:48 Last Admin: 12/16/18 04:56 Dose: 2 units Insulin Glargine (Lantus Solostar) 5 units SUBCUT DAILY [facility] Last Admin: 12/15/18 09:21 Dose: 5 units Ketorolac Tromethamine (Toradol) 30 mg IVPUSH ONETIME ONE Stop: 12/14/18 09:30 Last Admin: 12/14/18 09:40 Dose: 30 mg Lorazepam (Ativan) 1 mg IVPUSH ONETIME ONE Stop: 12/14/18 17:16 Last Admin: 12/14/18 17:27 Dose: 1 mg Morphine Sulfate (Morphine) 2 mg IVPUSH ONETIME ONE Stop: 12/14/18 11:52 Last Admin: 12/14/18 12:15 Dose: 2 mg - Exam General: Reports: Alert, Oriented, Cooperative, No Acute Distress Lungs: Reports: Clear to Auscultation, Normal Respiratory Effort Cardiovascular: Reports: Regular Rate, Regular Rhythm GI/Abdominal Exam: Normal Bowel Sounds, Soft, Non-Tender, No Distention Skin: Reports: Warm, Dry Wound/Incisions: Reports: Healing Well Neurological: Reports: No New Focal Deficit Psy/Mental Status: Reports: Alert, Normal Affect, Normal Mood
[2018-12-16 12:27] VITALS: BP 136/65
[2018-12-16] MEDS ORDERED: Ranitidine 15 MG/ML Syrup 10 ML UD Cup PO SCH (21:00)
== END 2018-12-16 12:48 | disposition home or self-care (01) ==
LOC: MW.ED 08:58 → MW.MS 11:07
PROVIDERS: ADMIT Internal Medicine; ATTEND Internal Medicine
DX: E10.649 Type 1 diabetes mellitus with hypoglycemia without coma (principal); N39.0 Urinary tract infection, site not specified; T17.908A Unspecified foreign body in respiratory tract, part unspecified causing other injury, initial encounter; I25.10 Atherosclerotic heart disease of native coronary artery without angina pectoris; I10 Essential (primary) hypertension; I25.2 Old myocardial infarction; E10.620 Type 1 diabetes mellitus with diabetic dermatitis; E78.00 Pure hypercholesterolemia, unspecified; J44.9 Chronic obstructive pulmonary disease, unspecified; K21.9 Gastro-esophageal reflux disease without esophagitis; G89.29 Other chronic pain; Z90.49 Acquired absence of other specified parts of digestive tract; Z95.5 Presence of coronary angioplasty implant and graft; Z87.891 Personal history of nicotine dependence; Z79.82 Long term (current) use of aspirin; Z79.899 Other long term (current) drug therapy
CPT/HCPCS: 36415; 36600; 70450; 70450-26; 71045; 71045-26; 71046; 71046-26; 74018; 74018-26; 80048; 80053; 80305-QW; 81001; 82550; 82803; 82962; 83605; 83735; 84484; 85025; 85027; 87040; 87086; 93005; 94640; 96361; 96374; 96375; 99285-25; A9270-GY; G0480; J1644; J1815-GY; J1885; J2060; J2270; J2543; J7040; J7050; J7060; J7620-GY

== ENCOUNTER 2020-01-19 07:46 | Day surgery (SDC) | payer MEDICARE, MEDICAID ==
[~2020-01-19 07:46] MED LIST: Lactated Ringers 1,000 ML IV SCH
[2020-01-19] MEDS ORDERED: Midazolam 1 MG/ML 2 ML SDV ONE (07:50)
[2020-01-19] MEDS ORDERED: Propofol 200 MG/20 ML SDV ONE (07:50)
[2020-01-19] MEDS ORDERED: fentaNYL 100 MCG/2 ML SDV ONE (07:50)
[2020-01-19] MEDS ORDERED: Lidocaine 2% 5 ML SDV ONE (07:55)
--- NOTE | 2020-01-19 08:53 | PCM.PREANE ---
Preanesthetic Assessment - Anesthesia/Transfusion/Family Hx Anesthesia History: Prior Anesthesia Without Reaction Family History of Anesthesia Reaction: No Transfusion History: No Prior Transfusion(s) - Review of Systems General: No Symptoms Pulmonary: No Symptoms Cardiovascular: No Symptoms Gastrointestinal: No Symptoms Neurological: No Symptoms Other: Reports: None - Physical Assessment NPO Status Date: 01/18/20 ASA Class: 3 Mental Status: Alert & Oriented x3 Airway Class: Mallampati = 2 Dentition: Reports: Dentures (full plate upper) ROM/Head Extension: Full Lungs: Clear to Auscultation, Normal Respiratory Effort Cardiovascular: Regular Rate, Regular Rhythm - Allergies Allergies/Adverse Reactions: Allergies Allergy/AdvReac Type Severity Reaction Status Date / Time No Known Allergies Allergy Verified 01/15/20 08:20 - Blood Blood Available: No - Anesthesia Plan Pre-Op Medication Ordered: None - Acknowledgements Anesthesia Type Planned: General Anesthesia (tiva) Pt an Appropriate Candidate for the Planned Anesthesia: Yes Alternatives and Risks of Anesthesia Discussed w Pt/Guardian: Yes Pt/Guardian Understands and Agrees with Anesthesia Plan: Yes Additional Comments: PMH: DM1- since 1965, CAD c AMI about 4 yr ago, has stent, on both plavix and asa until 5-7 d ago, COPD- no exac in many months, stopped smoking 4 yr ago, htn, chronic pain PLAN: tiva PreAnesthesia Questionnaire HEENT History: Reports: Other (See Below) Other HEENT History: wears reading glasses, upper denture Cardiovascular History: Reports: Hypertension, [place], Stents Other Cardiovascular History: Myocardial infarction 2013 Respiratory History: Reports: COPD Gastrointestinal History: Reports: Chronic Diarrhea, GERD, PUD Other Gastrointestinal History: Gastroparesis, hx gastric ulcers Genitourinary History: Reports: None RELIABILITY SPECIALIST History: Reports: 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 History: Reports: Back Pain, Chronic, Fracture, Osteoarthritis Other 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 History: hx fx left arm Neurological History: Reports: Neuropathy, Diabetic Other Neuro History: essential tremors Psychiatric History: Reports: None Endocrine/Metabolic History: Reports: Diabetes, Type I, Osteopenia Hematologic History: Reports: None Immunologic History: Reports: None Oncologic (Cancer) History: Reports: None Dermatologic History: Reports: Other (See Below) Other Dermatologic History: necrobiosis lipoidica - Infectious Disease History Infectious Disease History: Reports: None - Past Surgical History Head Surgeries/Procedures: Reports: None HEENT Surgical History: Reports: Cataract Surgery Cardiovascular Surgical History: Reports: Coronary Artery Stent, Other (See Below) Other Cardiovascular Surgeries/Procedures: stents x 2 Respiratory Surgical History: Reports: None GI Surgical History: Reports: Appendectomy, Cholecystectomy, Colonoscopy, EGD, Other (See Below) Other GI Surgeries/Procedures: partial gastrectomy, ERCP with insertion of TUbe into bile/pancreatic dust Female Surgical History: Reports: Section, Hysterectomy, Tubal Ligation Endocrine Surgical History: Reports: None Neurological Surgical History: Reports: None 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 Surgical History: Reports: Carpal Tunnel, Other (See Below) Other 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 Surgeries/Procedures:: surgical tx for fx left humerous surgery Oncologic Surgical History: Reports: None Dermatological Surgical History: Reports: Skin Graft - SUBSTANCE USE Smoking Status *Q: Former Smoker Tobacco Use Within Last Twelve Months: No Days Per Week of Alcohol Use: 7 Number of Drinks Per Day: 1 Total Drinks Per Week: 7 - HOME MEDS Home Medications: Home Meds Acetaminophen with Codeine [Acetaminophen-Cod #4] 2 tab PO Q4HR PRN 01/18/15 [History] Propranolol HCl 10 mg PO TID 01/18/15 [History] Sodium Bicarbonate 650 mg PO BIDMEALS 01/18/15 [History] amLODIPine [Norvasc] 5 mg PO DAILY 01/18/15 [History] Clopidogrel Bisulfate [Clopidogrel] 75 mg PO DAILY 01/21/18 [History] Pantoprazole [ProTONIX] 40 mg PO DAILY 01/21/18 [History] carisoprodoL [Carisoprodol] 350 mg PO TID PRN 01/21/18 [History] ondansetron HCL [Zofran] 4 mg PO TID PRN 01/21/18 [History] Albuterol [Ventolin HFA] 2 puff INH Q4H PRN 12/12/18 [History] Carboxymethylcellulose Sodium [Refresh Tears] 1 drop EYEBOTH ASDIRECTED PRN 12/12/18 [History] Ezetimibe 10 mg PO DAILY 12/12/18 [History] Insulin Glargine,Hum.Rec.Anlog [Basaglar Kwikpen U-100] 15 units SUBCUT ACBREAKFAST 12/12/18 [History] Isosorbide Mononitrate [Imdur] 30 mg PO DAILY 12/12/18 [History] Nitroglycerin 0.4 mg SL .EVERY 5 MINUTES PRN MDD 3 TABLETS 12/12/18 [History] Aspirin 81 mg PO DAILY 12/14/18 [History] Cholecalciferol (Vitamin D3) [Vitamin D3] 2,000 units PO DAILY 01/15/20 [History] Glucagon [Baqsimi] 1 spray UMM ASDIRECTED PRN 01/15/20 [History] Insulin Aspart (Niacinamide) [Fiasp 100 Unit/ml Flextouch] 1 injection SUBCUT TID 01/15/20 [History] Losartan Potassium 25 mg PO DAILY 01/15/20 [History] Promethazine HCl 25 mg PO Q4H PRN 01/15/20 [History] Umeclidinium [place] [Incruse Ellipta*] 1 puff INH DAILY 01/15/20 [History] - CURRENT (IN HOUSE) MEDS Current Meds: Current Medications Lactated Ringer's (Ringers, Lactated) 1,000 mls @ 125 mls/hr IV ASDIRECTED MIKHAIL Discontinued Medications Fentanyl (Sublimaze) Confirm Administered Dose 100 mcg .ROUTE .STK-MED ONE Stop: 01/19/20 07:51 Lidocaine (Xylocaine-Mpf 2%) Confirm Administered Dose 5 ml .ROUTE .STK-MED ONE Stop: 01/19/20 07:56 Midazolam HCl (Versed 1 Mg/Ml) Confirm Administered Dose 2 mg .ROUTE .STK-MED ONE Stop: 01/19/20 07:51 Propofol (Diprivan 20 Ml) Confirm Administered Dose 400 mg .ROUTE .STK-MED ONE Stop: 01/19/20 07:51
--- NOTE | 2020-01-19 09:40 | PCM.OPNOTE ---
- General Post-Op/Procedure Note Date of Surgery/Procedure: 01/19/20 Operative Procedure(s): Colonoscopy Pre Op Diagnosis: Family history of colon cancer. Desire for colorectal cancer screening. Post-Op Diagnosis: No evidence of neoplasia Anesthesia Technique: MAC (ASA III) Primary Surgeon: Juan A Downs Condition: Good Free Text/Narrative:: DICTATION [id number] CPT CODE [id number]
[2020-01-19] MEDS ORDERED: Lactated Ringers 1,000 ML IV SCH (09:45)
--- NOTE | 2020-01-19 10:48 | PCM.POSTAN ---
POST ANESTHESIA ASSESSMENT - MENTAL STATUS Mental Status: Alert, Oriented - VITAL SIGNS Vital Signs: Last Vital Signs Temp 97.2 F 01/19/20 09:37 Pulse 65 01/19/20 09:47 Resp 17 01/19/20 09:47 BP 126/49 L 01/19/20 09:47 Pulse Ox 100 01/19/20 09:47 - RESPIRATORY Respiratory Status: Respiratory Rate WNL, Airway Patent, O2 Saturation Stable - CARDIOVASCULAR CV Status: Pulse Rate WNL, Blood Pressure Stable - GASTROINTESTINAL GI Status: No Symptoms - POST OP HYDRATION Hydration Status: Adequate & Stable
--- NOTE | 2020-01-19 10:49 | PCM48HPAN ---
Post Anesthesia Note - EVALUATION WITHIN 48HRS OF ANESTHETIC Vital Signs in Normal Range: Yes Patient Participated in Evaluation: Yes Respiratory Function Stable: Yes Airway Patent: Yes Cardiovascular Function Stable: Yes Hydration Status Stable: Yes Pain Control Satisfactory: Yes Nausea and Vomiting Control Satisfactory: Yes Mental Status Recovered: Yes Vital Signs: Last Vital Signs Temp 97.2 F 01/19/20 09:37 Pulse 65 01/19/20 09:47 Resp 17 01/19/20 09:47 BP 126/49 L 01/19/20 09:47 Pulse Ox 100 01/19/20 09:47
[2020-01-19 12:35] VITALS: BP 155/65; PULSE 68
--- NOTE | 2020-01-19 14:07 | OR ---
SURGEON: Juan A Downs M.D. DATE OF PROCEDURE: 01/19/2020 OPERATION PERFORMED: Colonoscopy. PRIMARY SURGEON: Juan A Downs MD ANESTHESIA: MAC. ASA CLASSIFICATION: III. PREOPERATIVE DIAGNOSES: 1. Family history of colon cancer. 2. Desire for colorectal cancer screening. POSTOPERATIVE DIAGNOSIS: No evidence of neoplasia. DESCRIPTION OF PROCEDURE: The patient was taken to the endoscopy room and positioned on the endoscopy table in the left lateral decubitus position. Time-out was called for appropriate identification of the patient and procedure. Monitored anesthesia care was provided. The colonoscope was inserted into the rectum and advanced with minimal difficulty to the cecum where the colonoscope was retroflexed to visualize the ascending colon from below. The colonoscope was then straightened and slowly withdrawn. Cecum, ascending colon, hepatic flexure, transverse colon, splenic flexure, descending colon, sigmoid colon, and rectum were very well visualized. No tumors, polyps, diverticula, or angiodysplastic changes were noted anywhere in the lower gastrointestinal tract. Once the colonoscope was withdrawn to the rectum, it was retroflexed to visualize the anal orifice from above. Again, no tumors or polyps were seen and there were no acute hemorrhoidal changes. The colonoscope was then straightened, the rectum aspirated, and the colonoscope removed. The patient tolerated the procedure well and was taken to recovery room in stable condition. ADDIS / MAURILIO /[id number]
== END 2020-01-19 10:15 | disposition home or self-care (01) ==
LOC: MW.SDS 07:46
PROVIDERS: ATTEND Surgery
DX: Z12.11 Encounter for screening for malignant neoplasm of colon (principal); K21.9 Gastro-esophageal reflux disease without esophagitis; F41.9 Anxiety disorder, unspecified; J44.9 Chronic obstructive pulmonary disease, unspecified; I10 Essential (primary) hypertension; E10.620 Type 1 diabetes mellitus with diabetic dermatitis; E10.43 Type 1 diabetes mellitus with diabetic autonomic (poly)neuropathy; K31.84 Gastroparesis; I25.10 Atherosclerotic heart disease of native coronary artery without angina pectoris; E10.21 Type 1 diabetes mellitus with diabetic nephropathy; E10.51 Type 1 diabetes mellitus with diabetic peripheral angiopathy without gangrene; E10.42 Type 1 diabetes mellitus with diabetic polyneuropathy; M81.0 Age-related osteoporosis without current pathological fracture; Z87.891 Personal history of nicotine dependence; Z79.899 Other long term (current) drug therapy; Z80.0 Family history of malignant neoplasm of digestive organs; Z79.82 Long term (current) use of aspirin
CPT/HCPCS: 82962; G0105; J2001; J2250; J2704; J3010; J7120; 00812

== ENCOUNTER 2020-03-10 07:06 | Inpatient (IN) | payer MEDICARE, MEDICAID ==
--- NOTE | 2020-03-10 07:19 | EDM.PDOC ---
ED HPI GENERAL MEDICAL PROBLEM - General Stated Complaint: DEHYDRATION AND DIZZINESS Time Seen by Provider: 03/10/20 07:17 Source of Information: Reports: Patient History Limitations: Reports: Altered Mental Status - History of Present Illness INITIAL COMMENTS - FREE TEXT/NARRATIVE: 64-year-old female with history of CAD, DM-I, DKA, presents with dizziness. Symptoms have been waxing and waning over the last 3 weeks but has gotten worse, she is becoming more dizzy, associated with feeling off balance walking and blurry vision. She has has had 2 days of nonbilious, nonbloody vomiting, she states she has not been able to keep anything down. She also notes intermittent nonbloody diarrhea for months which she takes Imodium. She denies headache, chest pain, abdominal pain, tenderness, hearing loss, palpitations, shortness of breath, dysuria. History and ROS limited secondary to AMS Past medical history: No additional pertinent history Past Surgical history: No additional pertinent history Social history: No additional pertinent history Family history: No additional pertinent history PHYSICAL EXAM General: AOx4, GCS = 15, No distress, answers questions but with contradicting answers. HEENT: dry mucous membrane Neck: supple, no meningismus, no Kernig or Brudzinski Cardiac: S1S2 RRR Respiratory: CTAB, no crackles or rales, no wheezing Abdomen: Soft, nontender, no rebound or guarding, nondistended, no pulsatile mass. Back: nontender 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: NVI distally, no deformity Neuro: No focal deficits. - Related Data Allergies Allergy/AdvReac Type Severity Reaction Status Date / Time No Known Allergies Allergy Verified 03/10/20 07:19 Home Meds: Home Meds Acetaminophen with Codeine [Acetaminophen-Cod #4] 2 tab PO Q4HR PRN 01/18/15 [History] Propranolol HCl 10 mg PO TID 01/18/15 [History] Sodium Bicarbonate 650 mg PO BIDMEALS 01/18/15 [History] amLODIPine [Norvasc] 5 mg PO DAILY 01/18/15 [History] Clopidogrel Bisulfate [Clopidogrel] 75 mg PO DAILY 01/21/18 [History] Pantoprazole [ProTONIX] 40 mg PO DAILY 01/21/18 [History] carisoprodoL [Carisoprodol] 350 mg PO TID PRN 01/21/18 [History] ondansetron HCL [Zofran] 4 mg PO TID PRN 01/21/18 [History] Albuterol [Ventolin HFA] 2 puff INH Q4H PRN 12/12/18 [History] Carboxymethylcellulose Sodium [Refresh Tears] 1 drop EYEBOTH ASDIRECTED PRN 12/12/18 [History] Ezetimibe 10 mg PO DAILY 12/12/18 [History] Insulin Glargine,Hum.Rec.Anlog [Basaglar Kwikpen U-100] 15 units SUBCUT ACBREAKFAST 12/12/18 [History] Isosorbide Mononitrate [Imdur] 30 mg PO DAILY 12/12/18 [History] Nitroglycerin 0.4 mg SL .EVERY 5 MINUTES PRN MDD 3 TABLETS 12/12/18 [History] Aspirin 81 mg PO DAILY 12/14/18 [History] Cholecalciferol (Vitamin D3) [Vitamin D3] 2,000 units PO DAILY 01/15/20 [History] Glucagon [Baqsimi] 1 spray UMM ASDIRECTED PRN 01/15/20 [History] Insulin Aspart (Niacinamide) [Fiasp 100 Unit/ml Flextouch] 1 injection SUBCUT TID 01/15/20 [History] Losartan Potassium 25 mg PO DAILY 01/15/20 [History] Promethazine HCl 25 mg PO Q4H PRN 01/15/20 [History] Umeclidinium [place] [Incruse Ellipta*] 1 puff INH DAILY 01/15/20 [History] Non-Formulary Medication [NF Drug] 1 each PO WEEKLY 03/10/20 [History] Past Medical History HEENT History: Reports: Other (See Below) Other HEENT History: wears reading glasses, upper denture Cardiovascular History: Reports: Hypertension, SC, Stents Other Cardiovascular History: Myocardial infarction 2013 Respiratory History: Reports: COPD Gastrointestinal History: Reports: Chronic Diarrhea, GERD, PUD Other Gastrointestinal History: Gastroparesis, hx gastric ulcers Genitourinary History: Reports: None 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: 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 History: Reports: Back Pain, Chronic, Fracture, Osteoarthritis Other 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 History: hx fx left arm Neurological History: Reports: Neuropathy, Diabetic Other Neuro History: essential tremors Psychiatric History: Reports: None Endocrine/Metabolic History: Reports: Diabetes, Type I, Osteopenia Hematologic History: Reports: None Immunologic History: Reports: None Oncologic (Cancer) History: Reports: None Dermatologic History: Reports: Other (See Below) Other Dermatologic History: necrobiosis lipoidica - Infectious Disease History Infectious Disease History: Reports: None - Past Surgical History Head Surgeries/Procedures: Reports: None HEENT Surgical History: Reports: Cataract Surgery Cardiovascular Surgical History: Reports: Coronary Artery Stent, Other (See Below) Other Cardiovascular Surgeries/Procedures: stents x 2 Respiratory Surgical History: Reports: None GI Surgical History: Reports: Appendectomy, Cholecystectomy, Colonoscopy, EGD, Other (See Below) Other GI Surgeries/Procedures: partial gastrectomy, ERCP with insertion of TUbe into bile/pancreatic dust Female Surgical History: Reports: Section, Hysterectomy, Tubal Ligation Endocrine Surgical History: Reports: None Neurological Surgical History: Reports: None 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 Surgical History: Reports: Carpal Tunnel, Other (See Below) Other 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 Surgeries/Procedures:: surgical tx for fx left humerous surgery Oncologic Surgical History: Reports: None Dermatological Surgical History: Reports: Skin Graft Social & Family History - Family History Family Medical History: Noncontributory - Caffeine Use Caffeine Use: Reports: Coffee, Soda Caffeine Use Comment: 1 cup of coffee every morning. 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 ED EXAM, GENERAL - Physical Exam Exam: See Below (see dictation) EKG INTERPRETATION EKG Interpretation Comments: 73 bpm, NSR, normal QRS interval, no STEMI. EKG and rhythm strip interpreted by me at 0726 Course - Vital Signs Last Recorded V/S: Last Vital Signs Temp 96.8 F L 03/10/20 07:21 Pulse 68 03/10/20 09:11 Resp 15 03/10/20 09:11 BP 111/39 L 03/10/20 09:11 Pulse Ox 96 03/10/20 09:11 - Orders/Labs/Meds Orders: Active Orders 24 hr Category Date Time Status Cardiac Monitoring [RC] . DIRECTED Care 03/10/20 07:23 Active EKG Documentation Completion [RC] STAT Care 03/10/20 07:24 Active Pulse Oximetry [RC] ASDIRECTED Care 03/10/20 07:23 Active CULTURE BLOOD [BC] Stat Lab 03/10/20 08:38 Ordered CULTURE BLOOD [BC] Stat Lab 03/10/20 08:38 Ordered Azithromycin [Zithromax] 500 mg Med 03/10/20 09:30 Ordered Sodium Chloride 0.9% [Normal Saline (AdvBag)] 250 ml IV ONETIME Lactated Ringers [Ringers, Lactated] 1,000 ml Med 03/10/20 08:34 Active IV .BOLUS Sodium Chloride 0.9% [Saline Flush] Med 03/10/20 07:23 Active 10 ml FLUSH ASDIRECTED PRN Sodium Chloride 0.9% [Saline Flush] Med 03/10/20 08:37 Active 10 ml FLUSH ASDIRECTED PRN Sodium Chloride 0.9% [Saline Flush] Med 03/10/20 07:23 Active 2.5 ml FLUSH ASDIRECTED PRN Sodium Chloride 0.9% [Saline Flush] Med 03/10/20 08:37 Active 2.5 ml FLUSH ASDIRECTED PRN cefTRIAXone [Rocephin in Dextrose,Iso-Osm 1 GM/50 ML] 1 Med 03/10/20 09:27 Ordered gm Premix Bag 1 bag IV ONETIME Blood Culture x2 Reflex Set [OM.PC] Stat Ot 03/10/20 08:37 Ordered Saline Lock Insert [OM.PC] Stat Ot 03/10/20 07:24 Ordered Saline Lock Insert [OM.PC] Stat Ot 03/10/20 08:37 Ordered Medication Orders Lactated Ringer's (Ringers, Lactated) 1,000 mls @ 999 mls/hr IV .BOLUS ONE Stop: 03/10/20 09:34 Last Admin: 03/10/20 09:08 Dose: 999 mls/hr Documented by: BELA Ceftriaxone Sodium/Dextrose 1 (gm/ Premix) 50 mls @ 100 mls/hr IV ONETIME ONE Stop: 03/10/20 09:56 Azithromycin 500 mg/ Sodium (Chloride) 250 mls @ 250 mls/hr IV ONETIME MIKHAIL Sodium Chloride (Saline Flush) 10 ml FLUSH ASDIRECTED PRN PRN Reason: Keep Vein Open Last Admin: 03/10/20 07:27 Dose: 10 ml Documented by: RAVIN Sodium Chloride (Saline Flush) 2.5 ml FLUSH ASDIRECTED PRN PRN Reason: Keep Vein Open Last Admin: 03/10/20 07:27 Dose: 2.5 ml Documented by: RAVIN Sodium Chloride (Saline Flush) 10 ml FLUSH ASDIRECTED PRN PRN Reason: Keep Vein Open Last Admin: 03/10/20 09:09 Dose: 10 ml Documented by: BELA Sodium Chloride (Saline Flush) 2.5 ml FLUSH ASDIRECTED PRN PRN Reason: Keep Vein Open Last Admin: 03/10/20 09:09 Dose: 2.5 ml Documented by: BELA Labs: Laboratory Tests 03/10/20 03/10/20 03/10/20 Range/Units 07:33 07:33 08:40 WBC 18.07 H (4.0-11.0) K/uL RBC 3.85 L (4.30-5.90) M/uL Hgb 11.4 L (12.0-16.0) g/dL Hct 34.1 L (36.0-46.0) % MCV 88.6 (80.0-98.0) fL MCH 29.6 (27.0-32.0) pg MCHC 33.4 (31.0-37.0) g/dL RDW Std Deviation 53.5 (28.0-62.0) fl RDW Coeff of [place]es[place] 17 H (11.0-15.0) % Plt Count 367 (150-400) K/uL MPV 10.60 (7.40-12.00) fL Neut % (Auto) 83.2 H (48.0-80.0) % Lymph % (Auto) 7.1 L (16.0-40.0) % [place] % (Auto) 9.4 (0.0-15.0) % Eos % (Auto) 0.1 (0.0-7.0) % Baso % (Auto) 0.2 (0.0-1.5) % Neut # (Auto) 15.1 H (1.4-5.7) K/uL Lymph # (Auto) 1.3 (0.6-2.4) K/uL [place] # (Auto) 1.7 H (0.0-0.8) K/uL Eos # (Auto) 0.0 (0.0-0.7) K/uL Baso # (Auto) 0.0 (0.0-0.1) K/uL Nucleated RBC % 0.0 /100WBC Nucleated RBCs # 0 K/uL Lactate (0.20-2.00) mmol/L Sodium 134 L (136-145) mmol/L Potassium 3.7 (3.5-5.1) mmol/L Chloride 96 L (98-107) mmol/L Carbon Dioxide 23.8 (21.0-32.0) mmol/L BUN 19 H (7.0-18.0) mg/dL Creatinine 1.1 H (0.6-1.0) mg/dL Est Cr Clr Drug Dosing 35.98 mL/min Estimated GFR (MDRD) 50.2 ml/min Glucose 275 H (74-106) mg/dL Calcium 6.9 L (8.5-10.1) mg/dL Phosphorus 4.7 (2.6-4.7) mg/dL Magnesium 1.7 L (1.8-2.4) mg/dL Total Bilirubin 1.9 H (0.2-1.0) mg/dL AST 26 (15-37) IU/L ALT 24 (14-63) IU/L Alkaline Phosphatase 152 H (46-116) U/L Troponin I < 0.050 (0.000-0.056) ng/mL Total Protein 5.3 L (6.4-8.2) g/dL Albumin 1.9 L (3.4-5.0) g/dL Globulin 3.4 (2.6-4.0) g/dL Albumin/Globulin Ratio 0.6 L (0.9-1.6) Urine Color YELLOW Urine Appearance SLT CLOUDY Urine pH 5.5 (5.0-8.0) Ur Specific [place] 1.025 (1.001-1.035) Urine Protein NEGATIVE (NEGATIVE) mg/dL Urine Glucose (UA) NEGATIVE (NEGATIVE) mg/dL Urine Ketones 15 H (NEGATIVE) mg/dL Urine Occult Blood NEGATIVE (NEGATIVE) Urine Nitrite NEGATIVE (NEGATIVE) Urine Bilirubin MODERATE H (NEGATIVE) Urine Ictotest NEGATIVE Urine Urobilinogen 1.0 (<2.0) EU/dL Ur Leukocyte Esterase SMALL H (NEGATIVE) Urine RBC 0-2 (0-2/HPF) Urine WBC 8-14 (0-5/HPF) Ur Epithelial Cells OCCASIONAL (NONE-FEW) Amorphous Sediment FEW (NEGATIVE) Urine Bacteria FEW (NEGATIVE) Urine Mucus FEW (NONE-MOD) Urine Yeast RARE 03/10/20 Range/Units 09:20 WBC (4.0-11.0) K/uL RBC (4.30-5.90) M/uL Hgb (12.0-16.0) g/dL Hct (36.0-46.0) % MCV (80.0-98.0) fL MCH (27.0-32.0) pg MCHC (31.0-37.0) g/dL RDW Std Deviation (28.0-62.0) fl RDW Coeff of [place] (11.0-15.0) % Plt Count (150-400) K/uL MPV (7.40-12.00) fL Neut % (Auto) (48.0-80.0) % Lymph % (Auto) (16.0-40.0) % [place] % (Auto) (0.0-15.0) % Eos % (Auto) (0.0-7.0) % Baso % (Auto) (0.0-1.5) % Neut # (Auto) (1.4-5.7) K/uL Lymph # (Auto) (0.6-2.4) K/uL [place] # (Auto) (0.0-0.8) K/uL Eos # (Auto) (0.0-0.7) K/uL Baso # (Auto) (0.0-0.1) K/uL Nucleated RBC % /100WBC Nucleated RBCs # K/uL Lactate 1.4 (0.20-2.00) mmol/L Sodium (136-145) mmol/L Potassium (3.5-5.1) mmol/L Chloride (98-107) mmol/L Carbon Dioxide (21.0-32.0) mmol/L BUN (7.0-18.0) mg/dL Creatinine (0.6-1.0) mg/dL Est Cr Clr Drug Dosing mL/min Estimated GFR (MDRD) ml/min Glucose (74-106) mg/dL Calcium (8.5-10.1) mg/dL Phosphorus (2.6-4.7) mg/dL Magnesium (1.8-2.4) mg/dL Total Bilirubin (0.2-1.0) mg/dL AST (15-37) IU/L ALT (14-63) IU/L Alkaline Phosphatase (46-116) U/L Troponin I (0.000-0.056) ng/mL Total Protein (6.4-8.2) g/dL Albumin (3.4-5.0) g/dL Globulin (2.6-4.0) g/dL Albumin/Globulin Ratio (0.9-1.6) Urine Color Urine Appearance Urine pH (5.0-8.0) Ur Specific [place] (1.001-1.035) Urine Protein (NEGATIVE) mg/dL Urine Glucose (UA) (NEGATIVE) mg/dL Urine Ketones (NEGATIVE) mg/dL Urine Occult Blood (NEGATIVE) Urine Nitrite (NEGATIVE) Urine Bilirubin (NEGATIVE) Urine Ictotest Urine Urobilinogen (<2.0) EU/dL Ur Leukocyte Esterase (NEGATIVE) Urine RBC (0-2/HPF) Urine WBC (0-5/HPF) Ur Epithelial Cells (NONE-FEW) Amorphous Sediment (NEGATIVE) Urine Bacteria (NEGATIVE) Urine Mucus (NONE-MOD) Urine Yeast Meds: Medications Generic Name Dose Route Start Last Admin Trade Name Freq PRN Reason Stop Dose Admin Lactated Ringer's 1,000 mls @ 999 mls/hr 03/10/20 08:34 03/10/20 09:08 Ringers, Lactated IV 03/10/20 09:34 999 mls/hr .BOLUS ONE Administration Ceftriaxone Sodium/Dextrose 1 50 mls @ 100 mls/hr 03/10/20 09:27 gm/ Premix IV 03/10/20 09:56 ONETIME ONE Azithromycin 500 mg/ Sodium 250 mls @ 250 mls/hr 03/10/20 09:30 Chloride IV ONETIME MIKHAIL Sodium Chloride 10 ml 03/10/20 07:23 03/10/20 07:27 Saline Flush FLUSH 10 ml ASDIRECTED PRN Administration Keep Vein Open Sodium Chloride 2.5 ml 03/10/20 07:23 03/10/20 07:27 Saline Flush FLUSH 2.5 ml ASDIRECTED PRN Administration Keep Vein Open Sodium Chloride 10 ml 03/10/20 08:37 03/10/20 09:09 Saline Flush FLUSH 10 ml ASDIRECTED PRN Administration Keep Vein Open Sodium Chloride 2.5 ml 03/10/20 08:37 03/10/20 09:09 Saline Flush FLUSH 2.5 ml ASDIRECTED PRN Administration Keep Vein Open - Re-Assessments/Exams Free Text/Narrative Re-Assessment/Exam: 03/10/20 09:[address] Dove, who agrees to admit patient. The hospitalist's documentation supersedes all other documentation on this patient with regard to any conflicts or discrepancies from this point forward. Any emergency conditions have been treated to the ability of the ED prior to admission. Departure - Departure Time of Disposition: 09:30 Disposition: Admitted As Inpatient 67 Condition: Good Clinical Impression: Pneumonia, UTI, Urinary tract infectious disease, Dizzinesses - Discharge Information *PRESCRIPTION DRUG MONITORING PROGRAM REVIEWED*: Not Applicable *COPY OF PRESCRIPTION DRUG MONITORING REPORT IN PATIENT ESTEPHANIA: Not Applicable Referrals: Oskar Verma MD [Primary Care Provider] - Sepsis Event Note (ED) - Focused Exam Vital Signs: Vital Signs Temp Pulse Resp BP Pulse Ox 03/10/20 09:11 68 15 111/39 L 96 03/10/20 08:20 64 112/43 L 96 03/10/20 07:21 96.8 F L 74 20 130/29 L 97 - My Orders Last 24 Hours: My Active Orders 03/10/20 07:23 Cardiac Monitoring [RC] . DIRECTED Pulse Oximetry [RC] ASDIRECTED Sodium Chloride 0.9% [Saline Flush] 10 ml FLUSH ASDIRECTED PRN Sodium Chloride 0.9% [Saline Flush] 2.5 ml FLUSH ASDIRECTED PRN 03/10/20 07:24 EKG Documentation Completion [RC] STAT Saline Lock Insert [OM.PC] Stat 03/10/20 08:34 Lactated Ringers [Ringers, Lactated] 1,000 ml IV .BOLUS 03/10/20 08:37 Sodium Chloride 0.9% [Saline Flush] 10 ml FLUSH ASDIRECTED PRN Sodium Chloride 0.9% [Saline Flush] 2.5 ml FLUSH ASDIRECTED PRN Blood Culture x2 Reflex Set [OM.PC] Stat Saline Lock Insert [OM.PC] Stat 03/10/20 08:38 CULTURE BLOOD [BC] Stat CULTURE BLOOD [BC] Stat 03/10/20 09:27 cefTRIAXone [Rocephin in Dextrose,Iso-Osm 1 GM/50 ML] 1 gm Premix Bag 1 bag IV ONETIME 03/10/20 09:30 Azithromycin [Zithromax] 500 mg Sodium Chloride 0.9% [Normal Saline (AdvBag)] 250 ml IV ONETIME - Assessment/Plan Last 24 Hours: My Active Orders 03/10/20 07:23 Cardiac Monitoring [RC] . DIRECTED Pulse Oximetry [RC] ASDIRECTED Sodium Chloride 0.9% [Saline Flush] 10 ml FLUSH ASDIRECTED PRN Sodium Chloride 0.9% [Saline Flush] 2.5 ml FLUSH ASDIRECTED PRN 03/10/20 07:24 EKG Documentation Completion [RC] STAT Saline Lock Insert [OM.PC] Stat 03/10/20 08:34 Lactated Ringers [Ringers, Lactated] 1,000 ml IV .BOLUS 03/10/20 08:37 Sodium Chloride 0.9% [Saline Flush] 10 ml FLUSH ASDIRECTED PRN Sodium Chloride 0.9% [Saline Flush] 2.5 ml FLUSH ASDIRECTED PRN Blood Culture x2 Reflex Set [OM.PC] Stat Saline Lock Insert [OM.PC] Stat 03/10/20 08:38 CULTURE BLOOD [BC] Stat CULTURE BLOOD [BC] Stat 03/10/20 09:27 cefTRIAXone [Rocephin in Dextrose,Iso-Osm 1 GM/50 ML] 1 gm Premix Bag 1 bag IV ONETIME 03/10/20 09:30 Azithromycin [Zithromax] 500 mg Sodium Chloride 0.9% [Normal Saline (AdvBag)] 250 ml IV ONETIME
[2020-03-10] MEDS ORDERED: Sodium Chloride 0.9% 2.5 ML Syringe FLUSH PRN ×2 (07:23→08:37)
[2020-03-10] MEDS: Sodium Chloride 0.9% 10 ML Syringe FLUSH PRN (07:27)
[2020-03-10 08:01] LABS: BLOOD UREA NITROGEN,BUN 19 mg/dL (7.0-18.0); CARBON DIOXIDE,CO2 23.8 mmol/L (21.0-32.0); CHLORIDE,CL 96 mmol/L (98-107); GLUCOSE RANDOM 275 mg/dL (74-106); POTASSIUM,K 3.7 mmol/L (3.5-5.1); SODIUM,NA 134 mmol/L (136-145)
--- NOTE | 2020-03-10 08:22 | CR ---
INDICATION: Dizziness. COMPARISON: Chest x-ray dated 19 June 2019. FINDINGS: A single portable chest x-ray shows a normal cardiac silhouette. The lungs show no focal pulmonary opacities. Sharp pleural margins. No pneumothorax. IMPRESSION: No evidence of acute pulmonary abnormalities. Dictated by Lane Mayo MD @ 03/10/2020 8:20:21 AM Dictated by: Lane Mayo MD @ 03/10/2020 08:20:29 (Electronically Signed)
[2020-03-10] MEDS ORDERED: Lactated Ringers 1,000 ML IV ONE (08:34)
[2020-03-10] MEDS ORDERED: Sodium Chloride 0.9% 10 ML Syringe FLUSH PRN (08:37)
--- NOTE | 2020-03-10 09:15 | CT ---
Head CT Technique: Multiple axial sections through the brain were obtained. Intravenous contrast was not utilized. Comparison: Previous head CT study of 12/14/18. Findings: Ventricles along with basal cisterns and sulci over the convexities are within normal limits for the patient's age. Diminished density is noted within portions of the periventricular white matter compatible with small vessel ischemic demyelination change. Old lacunar infarct is noted within the left basal ganglia. No evidence of intracranial hemorrhage. No midline shift or mass-effect is is seen. Bone window settings were reviewed. Opacified left maxillary sinus is noted. Other visualized paranasal sinuses are clear. No acute mastoid sinus finding is seen. No acute calvarial finding is appreciated. Impression: 1. Opacified left maxillary sinus. This has worsened from previous study. Other visualized sinuses are clear. No air-fluid levels are seen within the paranasal sinuses. 2. Senescent change as noted above. 3. No acute intracranial abnormality is appreciated. Diagnostic code #2 This report was dictated in MDT
--- NOTE | 2020-03-10 09:22 | CT ---
CT abdomen and pelvis Technique: Multiple axial sections were obtained from above the dome of the diaphragm inferiorly through the pubic symphysis. Intravenous contrast and oral contrast has not been given. Comparison: Prior CT abdomen and pelvis exam of 11/14/18. Findings: Consolidating density is noted within the right middle lobe. This finding shows air bronchograms and appears to be stable from prior exam and therefore likely represents a chronic finding. Lesser parenchymal density is seen within the medial left lung base most likely due to atelectasis unless patient has infectious symptoms of pneumonia. Liver shows severe fatty infiltration which has worsened from prior exam. Spleen size is normal. Calcifications are seen within the spleen which are likely due to granulomas. Calcifications are seen within both kidneys which mostly are vascular in etiology. Kidneys show no hydronephrosis. Adrenal glands show no nodule. Pancreas is atrophied. Surgical clips are seen from prior cholecystectomy. Aorta shows atherosclerotic calcification which continues into the iliac vessels. No retroperitoneal adenopathy or mesenteric abnormalities are seen. No pelvic mass is seen. Small amount of nonspecific fluid is seen within the pelvis. Uterus not visualized presumably from prior hysterectomy. Appendix is also not definitely visualized. No bowel dilatation is appreciated. Bone window settings were reviewed. No acute osseous finding is appreciated. Impression: 1. Chronic density within the right middle lobe with air bronchograms. New area of increased density within the posterior right lung base. Differential includes pneumonia as well as aspiration and atelectasis. 2. Increasing fatty infiltration within the liver from prior exam. 3. Small amount of fluid within the pelvis which is nonspecific. 4. Nothing acute is otherwise seen on noncontrast CT study of the abdomen and pelvis Diagnostic code #3 This report was dictated in MDT
[2020-03-10] MEDS ORDERED: cefTRIAXone 1 GM in Premix Bag 1 BAG IV ONE (09:27)
[2020-03-10] MEDS ORDERED: Azithromycin 500 MG in Sodium Chloride 0.9% 250 ML IV SCH ×2 (09:30→10:30)
[2020-03-10] MEDS ORDERED: Ondansetron 4 MG Tab PO PRN (14:29)
--- NOTE | 2020-03-10 14:29 | PCM.HP.2 ---
H&P History of Present Illness - General Date of Service: 03/10/20 Admit Problem/Dx: Admission Diagnosis/Problem Admission Diagnosis/Problem Pneumonia - History of Present Illness Initial Comments - Free Text/Narative: 64 yo female with pmh of CAD, DM who presents with one month history of dizziness. Patient reports mild cough but denies any fevers, chills or dysuria. She reports her urine is orange. She thinks her weekly osteoperosis medication is causing her dizziness. She reports she is having difficulty walking to the bathroom at home. IN the ED. She was noted to have a WBC of 18,000, CT head was negative. CT abdomen and pelvis reported possible early right lower lobe pneumonia. - Related Data Allergies/Adverse Reactions: Allergies Allergy/AdvReac Type Severity Reaction Status Date / Time No Known Allergies Allergy Verified 03/10/20 12:31 Home Medications: Home Meds Acetaminophen with Codeine [Acetaminophen-Cod #4] 2 tab PO Q4HR PRN 01/18/15 [History] Propranolol HCl 10 mg PO TID 01/18/15 [History] Sodium Bicarbonate 650 mg PO BIDMEALS 01/18/15 [History] amLODIPine [Norvasc] 5 mg PO DAILY 01/18/15 [History] Clopidogrel Bisulfate [Clopidogrel] 75 mg PO DAILY 01/21/18 [History] Pantoprazole [ProTONIX] 40 mg PO DAILY 01/21/18 [History] carisoprodoL [Carisoprodol] 350 mg PO TID PRN 01/21/18 [History] ondansetron HCL [Zofran] 4 mg PO TID PRN 01/21/18 [History] Albuterol [Ventolin HFA] 2 puff INH Q4H PRN 12/12/18 [History] Carboxymethylcellulose Sodium [Refresh Tears] 1 drop EYEBOTH ASDIRECTED PRN 07/02 [History] Ezetimibe 10 mg PO DAILY 12/12/18 [History] Insulin Glargine,Hum.Rec.Anlog [Basaglar Kwikpen U-100] 15 units SUBCUT ACBREAKFAST 12/12/18 [History] Isosorbide Mononitrate [Imdur] 30 mg PO DAILY 12/12/18 [History] Nitroglycerin 0.4 mg SL .EVERY 5 MINUTES PRN MDD 3 TABLETS 12/12/18 [History] Aspirin 81 mg PO DAILY 12/14/18 [History] Cholecalciferol (Vitamin D3) [Vitamin D3] 2,000 units PO DAILY 01/15/20 [History] Glucagon [Baqsimi] 1 spray UMM ASDIRECTED PRN 01/15/20 [History] Insulin Aspart (Niacinamide) [Fiasp 100 Unit/ml Flextouch] 1 injection SUBCUT TID 01/15/20 [History] Losartan Potassium 25 mg PO DAILY 01/15/20 [History] Promethazine HCl 25 mg PO Q4H PRN 01/15/20 [History] Umeclidinium [place] [Incruse Ellipta*] 1 puff INH DAILY 01/15/20 [History] Non-Formulary Medication [NF Drug] 1 each PO WEEKLY 03/10/20 [History] Past Medical History HEENT History: Reports: Other (See Below) Other HEENT History: wears reading glasses, upper denture Cardiovascular History: Reports: Hypertension, [place], Stents Other Cardiovascular History: Myocardial infarction 2013 Respiratory History: Reports: COPD Gastrointestinal History: Reports: Chronic Diarrhea, GERD, PUD Other Gastrointestinal History: Gastroparesis, hx gastric ulcers Genitourinary History: Reports: None [employer] History: Reports: 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 History: Reports: Back Pain, Chronic, Fracture, Osteoarthritis Other 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 History: hx fx left arm Neurological History: Reports: Neuropathy, Diabetic Other Neuro History: essential tremors Psychiatric History: Reports: None Endocrine/Metabolic History: Reports: Diabetes, Type I, Osteopenia Hematologic History: Reports: None Immunologic History: Reports: None Oncologic (Cancer) History: Reports: None Dermatologic History: Reports: Other (See Below) Other Dermatologic History: necrobiosis lipoidica - Infectious Disease History Infectious Disease History: Reports: None - Past Surgical History Head Surgeries/Procedures: Reports: None HEENT Surgical History: Reports: Cataract Surgery Cardiovascular Surgical History: Reports: Coronary Artery Stent, Other (See Below) Other Cardiovascular Surgeries/Procedures: stents x 2 Respiratory Surgical History: Reports: None GI Surgical History: Reports: Appendectomy, Cholecystectomy, Colonoscopy, EGD, Other (See Below) Other GI Surgeries/Procedures: partial gastrectomy, ERCP with insertion of TUbe into bile/pancreatic dust Female Surgical History: Reports: Section, Hysterectomy, Tubal Ligation Endocrine Surgical History: Reports: None Neurological Surgical History: Reports: None 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 Surgical History: Reports: Carpal Tunnel, Other (See Below) Other 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 Surgeries/Procedures:: surgical tx for fx left humerous surgery Oncologic Surgical History: Reports: None Dermatological Surgical History: Reports: Skin Graft Social & Family History - Family History Family Medical History: Noncontributory - Tobacco Use Smoking Status *Q: Former Smoker Used Tobacco, but Quit: Yes Month/Year Tobacco Last Used: 2016 - Caffeine Use Caffeine Use: Reports: Coffee, Soda Caffeine Use Comment: 1 cup of coffee every morning. - Recreational Drug Use Recreational Drug Use: No - Living Situation & Occupation Living situation: Reports: Occupation: Employed ([employer] couple nights a week) H&P Review of Systems - Review of Systems: Review Of Systems: Comprehensive ROS is negative, except as noted in HPI. Exam - Exam Exam: See Below - Vital Signs Vital Signs: Last Vital Signs Temp 36.9 C 03/10/20 12:30 Pulse 73 03/10/20 12:30 Resp 18 03/10/20 12:30 BP 106/51 L 03/10/20 12:30 Pulse Ox 97 03/10/20 12:30 Weight: 45.586 kg - Exam General: Alert, Oriented HEENT: Mucosa Moist & [place] Lungs: Clear to Auscultation, Normal Respiratory Effort Cardiovascular: Regular Rate, Regular Rhythm, Diastolic Murmur GI/Abdominal Exam: Soft, Non-Tender Extremities: Non-Tender, No Pedal Edema Skin: Warm, Dry, Intact Neurological: Cranial Nerves Intact, Reflexes Equal Bilateral, Strength Equal Bilateral. No: Focal Deficit - Patient Data Lab Results Last 24 hrs: Laboratory Results - last 24 hr 03/10/20 03/10/20 03/10/20 Range/Units 07:33 07:33 08:40 WBC 18.07 H (4.0-11.0) K/uL RBC 3.85 L (4.30-5.90) M/uL Hgb 11.4 L (12.0-16.0) g/dL Hct 34.1 L (36.0-46.0) % MCV 88.6 (80.0-98.0) fL MCH 29.6 (27.0-32.0) pg MCHC 33.4 (31.0-37.0) g/dL RDW Std Deviation 53.5 (28.0-62.0) fl RDW Coeff of Hesham 17 H (11.0-15.0) % Plt Count 367 (150-400) K/uL MPV 10.60 (7.40-12.00) fL Neut % (Auto) 83.2 H (48.0-80.0) % Lymph % (Auto) 7.1 L (16.0-40.0) % [place] % (Auto) 9.4 (0.0-15.0) % Eos % (Auto) 0.1 (0.0-7.0) % Baso % (Auto) 0.2 (0.0-1.5) % Neut # (Auto) 15.1 H (1.4-5.7) K/uL Lymph # (Auto) 1.3 (0.6-2.4) K/uL [place] # (Auto) 1.7 H (0.0-0.8) K/uL Eos # (Auto) 0.0 (0.0-0.7) K/uL Baso # (Auto) 0.0 (0.0-0.1) K/uL Nucleated RBC % 0.0 /100WBC Nucleated RBCs # 0 K/uL Lactate (0.20-2.00) mmol/L Sodium 134 L (136-145) mmol/L Potassium 3.7 (3.5-5.1) mmol/L Chloride 96 L (98-107) mmol/L Carbon Dioxide 23.8 (21.0-32.0) mmol/L BUN 19 H (7.0-18.0) mg/dL Creatinine 1.1 H (0.6-1.0) mg/dL Est Cr Clr Drug Dosing 35.98 mL/min Estimated GFR (MDRD) 50.2 ml/min Glucose 275 H (74-106) mg/dL Calcium 6.9 L (8.5-10.1) mg/dL Phosphorus 4.7 (2.6-4.7) mg/dL Magnesium 1.7 L (1.8-2.4) mg/dL Total Bilirubin 1.9 H (0.2-1.0) mg/dL AST 26 (15-37) IU/L ALT 24 (14-63) IU/L Alkaline Phosphatase 152 H (46-116) U/L Troponin I < 0.050 (0.000-0.056) ng/mL Total Protein 5.3 L (6.4-8.2) g/dL Albumin 1.9 L (3.4-5.0) g/dL Globulin 3.4 (2.6-4.0) g/dL Albumin/Globulin Ratio 0.6 L (0.9-1.6) Urine Color YELLOW Urine Appearance SLT CLOUDY Urine pH 5.5 (5.0-8.0) Ur Specific [place] 1.025 (1.001-1.035) Urine Protein NEGATIVE (NEGATIVE) mg/dL Urine Glucose (UA) NEGATIVE (NEGATIVE) mg/dL Urine Ketones 15 H (NEGATIVE) mg/dL Urine Occult Blood NEGATIVE (NEGATIVE) Urine Nitrite NEGATIVE (NEGATIVE) Urine Bilirubin MODERATE H (NEGATIVE) Urine Ictotest NEGATIVE Urine Urobilinogen 1.0 (<2.0) EU/dL Ur Leukocyte Esterase SMALL H (NEGATIVE) Urine RBC 0-2 (0-2/HPF) Urine WBC 8-14 (0-5/HPF) Ur Epithelial Cells OCCASIONAL (NONE-FEW) Amorphous Sediment FEW (NEGATIVE) Urine Bacteria FEW (NEGATIVE) Urine Mucus FEW (NONE-MOD) Urine Yeast RARE SARS-CoV-2 RNA ([place]) (NEGATIVE) 03/10/20 03/10/20 Range/Units 08:45 09:20 WBC (4.0-11.0) K/uL RBC (4.30-5.90) M/uL Hgb (12.0-16.0) g/dL Hct (36.0-46.0) % MCV (80.0-98.0) fL MCH (27.0-32.0) pg MCHC (31.0-37.0) g/dL RDW Std Deviation (28.0-62.0) fl RDW Coeff of Hesham (11.0-15.0) % Plt Count (150-400) K/uL MPV (7.40-12.00) fL Neut % (Auto) (48.0-80.0) % Lymph % (Auto) (16.0-40.0) % Casey % (Auto) (0.0-15.0) % Eos % (Auto) (0.0-7.0) % Baso % (Auto) (0.0-1.5) % Neut # (Auto) (1.4-5.7) K/uL Lymph # (Auto) (0.6-2.4) K/uL [place] # (Auto) (0.0-0.8) K/uL Eos # (Auto) (0.0-0.7) K/uL Baso # (Auto) (0.0-0.1) K/uL Nucleated RBC % /100WBC Nucleated RBCs # K/uL Lactate 1.4 (0.20-2.00) mmol/L Sodium (136-145) mmol/L Potassium (3.5-5.1) mmol/L Chloride (98-107) mmol/L Carbon Dioxide (21.0-32.0) mmol/L BUN (7.0-18.0) mg/dL Creatinine (0.6-1.0) mg/dL Est Cr Clr Drug Dosing mL/min Estimated GFR (MDRD) ml/min Glucose (74-106) mg/dL Calcium (8.5-10.1) mg/dL Phosphorus (2.6-4.7) mg/dL Magnesium (1.8-2.4) mg/dL Total Bilirubin (0.2-1.0) mg/dL AST (15-37) IU/L ALT (14-63) IU/L Alkaline Phosphatase (46-116) U/L Troponin I (0.000-0.056) ng/mL Total Protein (6.4-8.2) g/dL Albumin (3.4-5.0) g/dL Globulin (2.6-4.0) g/dL Albumin/Globulin Ratio (0.9-1.6) Urine Color Urine Appearance Urine pH (5.0-8.0) Ur Specific [place] (1.001-1.035) Urine Protein (NEGATIVE) mg/dL Urine Glucose (UA) (NEGATIVE) mg/dL Urine Ketones (NEGATIVE) mg/dL Urine Occult Blood (NEGATIVE) Urine Nitrite (NEGATIVE) Urine Bilirubin (NEGATIVE) Urine Ictotest Urine Urobilinogen (<2.0) EU/dL Ur Leukocyte Esterase (NEGATIVE) Urine RBC (0-2/HPF) Urine WBC (0-5/HPF) Ur Epithelial Cells (NONE-FEW) Amorphous Sediment (NEGATIVE) Urine Bacteria (NEGATIVE) Urine Mucus (NONE-MOD) Urine Yeast SARS-CoV-2 RNA ([place]) NEGATIVE (NEGATIVE) Result Diagrams: 03/11/20 05:35 03/11/20 05:35 Sepsis Event Note - Evaluation Sepsis Screening Result: No Definite Risk - Focused Exam Vital Signs: Vital Signs Temp Pulse Resp BP Pulse Ox 03/10/20 12:30 36.9 C 73 18 106/51 L 97 03/10/20 09:20 67 16 121/49 L 96 03/10/20 09:11 68 15 111/39 L 96 03/10/20 08:20 64 112/43 L 96 03/10/20 07:21 36.0 C L 74 20 130/29 L 97 Problem List Initiated/Reviewed/Updated: Yes Orders Last 24hrs: Active Orders 24 hr Category Date Time Status Admission Status [Patient Status] [ADT] Stat ADT 03/10/20 09:44 Active Accu Check [Blood Glucose Check, Bedside] [RC] TIDAC Care 03/10/20 14:00 Active Cardiac Monitoring [RC] . DIRECTED Care 03/10/20 07:23 Active Pulse Oximetry [RC] ASDIRECTED Care 03/10/20 07:23 Active [employer] Diet [DIET] Diet 03/10/20 Breakfast Active CULTURE BLOOD [BC] Stat Lab 03/10/20 09:11 Received CULTURE BLOOD [BC] Stat Lab 03/10/20 09:20 Received Azithromycin [Zithromax] Med 03/11/20 14:00 Active 500 mg PO Q24H Azithromycin [Zithromax] 500 mg Med 03/10/20 10:30 Active Sodium Chloride 0.9% [Normal Saline (AdvBag)] 250 ml IV ONETIME Insulin Aspart [NovoLOG] Med 03/10/20 17:00 Active See Protocol SUBCUT TIDAC Sodium Chloride 0.9% [Saline Flush] Med 03/10/20 07:23 Active 10 ml FLUSH ASDIRECTED PRN Sodium Chloride 0.9% [Saline Flush] Med 03/10/20 08:37 Active 10 ml FLUSH ASDIRECTED PRN Sodium Chloride 0.9% [Saline Flush] Med 03/10/20 07:23 Active 2.5 ml FLUSH ASDIRECTED PRN Sodium Chloride 0.9% [Saline Flush] Med 03/10/20 08:37 Active 2.5 ml FLUSH ASDIRECTED PRN cefTRIAXone [Rocephin in Dextrose,Iso-Osm 1 GM/50 ML] 1 Med 03/11/20 14:00 Active gm Premix Bag 1 bag IV Q24H Blood Culture x2 Reflex Set [OM.PC] Stat Ot 03/10/20 08:37 Ordered Saline Lock Insert [OM.PC] Stat Ot 03/10/20 07:24 Ordered Saline Lock Insert [OM.PC] Stat Ot 03/10/20 08:37 Ordered Medication Orders Azithromycin (Zithromax) 500 mg PO Q24H [facility] Azithromycin 500 mg/ Sodium (Chloride) 250 mls @ 250 mls/hr IV ONETIME [facility] Last Admin: 03/10/20 11:03 Dose: 250 mls/hr Documented by: BELA Ceftriaxone Sodium/Dextrose 1 (gm/ Premix) 50 mls @ 100 mls/hr IV Q24H [facility] Insulin Aspart (Novolog) 0 unit SUBCUT TIDAC [facility]; Protocol Sodium Chloride (Saline Flush) 10 ml FLUSH ASDIRECTED PRN PRN Reason: Keep Vein Open Last Admin: 03/10/20 07:27 Dose: 10 ml Documented by: RAVIN Sodium Chloride (Saline Flush) 2.5 ml FLUSH ASDIRECTED PRN PRN Reason: Keep Vein Open Last Admin: 03/10/20 07:27 Dose: 2.5 ml Documented by: RAVIN Sodium Chloride (Saline Flush) 10 ml FLUSH ASDIRECTED PRN PRN Reason: Keep Vein Open Last Admin: 03/10/20 09:09 Dose: 10 ml Documented by: BELA Sodium Chloride (Saline Flush) 2.5 ml FLUSH ASDIRECTED PRN PRN Reason: Keep Vein Open Last Admin: 03/10/20 09:09 Dose: 2.5 ml Documented by: BELA Assessment/Plan Comment:: 64 yo female admitted for possible pneumonia and UTI. We will hydrate with IV fluids, Rocephin and Azithromycin. Will consult PT regarding patient's dizzin ess.
[2020-03-10] MEDS: Heparin Sodium 5,000 Units/ML Vial SUBCUT SCH ×2 (14:58→22:59)
[2020-03-10] MEDS: Sodium Chloride 0.9% 1,000 ML IV SCH ×2 (16:22→23:02)
[2020-03-10] MEDS: Insulin Aspart 100 Units/ML 3 ML Pen SUBCUT SCH (17:12)
[2020-03-10] MEDS: TYLENOL WITH CODEINE PO PRN ×2 (18:19→21:20)
[2020-03-10] MEDS: Propranolol 20 MG Tab PO SCH (21:18)
[2020-03-11] MEDS: TYLENOL WITH CODEINE PO PRN ×4 (05:54→22:19)
[2020-03-11] MEDS: Propranolol 20 MG Tab PO SCH ×3 (05:55→22:18)
[2020-03-11] MEDS: Heparin Sodium 5,000 Units/ML Vial SUBCUT SCH ×3 (05:59→23:42)
[2020-03-11] MEDS: Insulin Aspart 100 Units/ML 3 ML Pen SUBCUT SCH ×3 (06:33→17:18)
[2020-03-11 06:38] LABS: BLOOD UREA NITROGEN,BUN 11 mg/dL (7.0-18.0); CARBON DIOXIDE,CO2 24.3 mmol/L (21.0-32.0); CHLORIDE,CL 106 mmol/L (98-107); GLUCOSE RANDOM 125 mg/dL (74-106); POTASSIUM,K 3.2 mmol/L (3.5-5.1); SODIUM,NA 141 mmol/L (136-145)
[2020-03-11] MEDS ORDERED: Insulin Glargine,Human Rec. Analog 100 Units/ML 3 ML Pen SUBCUT SCH (07:30)
[2020-03-11] MEDS: Pantoprazole 40 MG Tab.CR PO SCH (08:51)
[2020-03-11] MEDS: amLODIPine 5 MG Tab PO SCH (08:51)
[2020-03-11] MEDS: Ezetimibe 10 MG Tab PO SCH (08:52)
[2020-03-11] MEDS: Losartan 50 MG Tab PO SCH (08:52)
[2020-03-11] MEDS: Clopidogrel 75 MG Tab PO SCH (08:53)
[2020-03-11] MEDS: Isosorbide Mononitrate 30 MG Tab.ER PO SCH (08:53)
[2020-03-11] MEDS: UMECLIDINIUM BROMIDE INH SCH (08:56)
[2020-03-11] MEDS ORDERED: Aspirin 81 MG Tab.Chew PO SCH (09:00)
[2020-03-11] MEDS ORDERED: Potassium Chloride 20 MEQ Tab.ER PO ONE (11:22)
--- NOTE | 2020-03-11 11:22 | PCM.PN ---
- General Info Date of Service: 03/11/20 - Review of Systems Systems Review Comment:: patient reports dizziness, reports urine less orange but more cloudy - Patient Data Vitals - Most Recent: Last Vital Signs Temp 35.9 C L 03/11/20 08:13 Pulse 63 03/11/20 08:13 Resp 18 03/11/20 08:13 BP 148/45 H 03/11/20 08:53 Pulse Ox 97 03/11/20 08:13 Weight - Most Recent: 45.586 kg I&O - Last 24 Hours: Intake & Output 03/10/20 03/11/20 03/11/20 22:59 06:59 14:59 Intake Total 500 950 Output Total 150 1000 Balance 350 -50 Lab Results Last 24 Hours: Laboratory Results - last 24 hr 03/10/20 03/10/20 03/10/20 Range/Units 12:17 14:46 15:27 WBC (4.0-11.0) K/uL RBC (4.30-5.90) M/uL Hgb (12.0-16.0) g/dL Hct (36.0-46.0) % MCV (80.0-98.0) fL MCH (27.0-32.0) pg MCHC (31.0-37.0) g/dL RDW Std Deviation (28.0-62.0) fl RDW Coeff of Hesham (11.0-15.0) % Plt Count (150-400) K/uL MPV (7.40-12.00) fL Neut % (Auto) (48.0-80.0) % Lymph % (Auto) (16.0-40.0) % [place] % (Auto) (0.0-15.0) % Eos % (Auto) (0.0-7.0) % Baso % (Auto) (0.0-1.5) % Neut # (Auto) (1.4-5.7) K/uL Lymph # (Auto) (0.6-2.4) K/uL [place] # (Auto) (0.0-0.8) K/uL Eos # (Auto) (0.0-0.7) K/uL Baso # (Auto) (0.0-0.1) K/uL Nucleated RBC % /100WBC Nucleated RBCs # K/uL Sodium (136-145) mmol/L Potassium (3.5-5.1) mmol/L Chloride (98-107) mmol/L Carbon Dioxide (21.0-32.0) mmol/L BUN (7.0-18.0) mg/dL Creatinine (0.6-1.0) mg/dL Est Cr Clr Drug Dosing mL/min Estimated GFR (MDRD) ml/min Glucose (74-106) mg/dL POC Glucose 207 H 156 H (60-110) mg/dL Calcium (8.5-10.1) mg/dL Troponin I < 0.050 (0.000-0.056) ng/mL 03/11/20 03/11/20 03/11/20 Range/Units 05:35 05:35 05:54 WBC 11.71 H (4.0-11.0) K/uL RBC 3.40 L (4.30-5.90) M/uL Hgb 9.9 L (12.0-16.0) g/dL Hct 30.0 L (36.0-46.0) % MCV 88.2 (80.0-98.0) fL MCH 29.1 (27.0-32.0) pg MCHC 33.0 (31.0-37.0) g/dL RDW Std Deviation 54.3 (28.0-62.0) fl RDW Coeff of Hesham 17 H (11.0-15.0) % Plt Count 327 (150-400) K/uL MPV 10.80 (7.40-12.00) fL Neut % (Auto) 70.1 (48.0-80.0) % Lymph % (Auto) 14.8 L (16.0-40.0) % [place] % (Auto) 13.8 (0.0-15.0) % Eos % (Auto) 1.1 (0.0-7.0) % Baso % (Auto) 0.2 (0.0-1.5) % Neut # (Auto) 8.2 H (1.4-5.7) K/uL Lymph # (Auto) 1.7 (0.6-2.4) K/uL [place] # (Auto) 1.6 H (0.0-0.8) K/uL Eos # (Auto) 0.1 (0.0-0.7) K/uL Baso # (Auto) 0.0 (0.0-0.1) K/uL Nucleated RBC % 0.0 /100WBC Nucleated RBCs # 0 K/uL Sodium 141 (136-145) mmol/L Potassium 3.2 L (3.5-5.1) mmol/L Chloride 106 (98-107) mmol/L Carbon Dioxide 24.3 (21.0-32.0) mmol/L BUN 11 (7.0-18.0) mg/dL Creatinine 0.8 (0.6-1.0) mg/dL Est Cr Clr Drug Dosing 51.80 mL/min Estimated GFR (MDRD) > 60.0 ml/min Glucose 125 H (74-106) mg/dL POC Glucose 121 H (60-110) mg/dL Calcium 6.2 L (8.5-10.1) mg/dL Troponin I (0.000-0.056) ng/mL [place]y Results Last 24 Hours: Microbiology 03/10/20 09:20 Aerobic Blood Culture - Preliminary Blood - Venous - Lab Draw Anaerobic Blood Culture - Preliminary 03/10/20 09:11 Aerobic Blood Culture - Preliminary Blood - Venous NO GROWTH AFTER 1 DAY Anaerobic Blood Culture - Preliminary NO GROWTH AFTER 1 DAY Med Orders - Current: Current Medications Amlodipine Besylate (Norvasc) 5 mg PO DAILY [facility] Last Admin: 03/11/20 08:51 Dose: 5 mg Documented by: Aspirin (Aspirin) 81 mg PO DAILY [facility] Last Admin: 03/11/20 08:53 Dose: 81 mg Documented by: Azithromycin (Zithromax) 500 mg PO Q24H [facility] Carisoprodol (Soma) 350 mg PO TID PRN PRN Reason: Muscle Spasm Clopidogrel Bisulfate (Plavix) 75 mg PO DAILY [facility] Last Admin: 03/11/20 08:53 Dose: 75 mg Documented by: Ezetimibe (Zetia) 10 mg PO DAILY [facility] Last Admin: 03/11/20 08:52 Dose: 10 mg Documented by: Heparin Sodium (Porcine) (Heparin Sodium) 5,000 units SUBCUT Q8H [facility] Last Admin: 03/11/20 05:59 Dose: 5,000 units Documented by: Ceftriaxone Sodium/Dextrose 1 (gm/ Premix) 50 mls @ 100 mls/hr IV Q24H [facility] Vancomycin HCl 750 mg/ Sodium (Chloride) 250 mls @ 250 mls/hr IV Q12H [facility] Insulin Aspart (Novolog) 0 unit SUBCUT TIDAC [facility]; Protocol Last Admin: 03/11/20 06:33 Dose: Not Given Documented by: Insulin Glargine (Lantus Solostar) 5 units SUBCUT ACBREAKFAST [facility] Isosorbide Mononitrate (Imdur) 30 mg PO DAILY [facility] Last Admin: 03/11/20 08:53 Dose: 30 mg Documented by: Losartan Potassium (Cozaar) 25 mg PO DAILY [facility] Last Admin: 03/11/20 08:52 Dose: 25 mg Documented by: Ondansetron HCl (Zofran) 4 mg PO TID PRN PRN Reason: Nausea Pantoprazole Sodium (Protonix) 40 mg PO DAILY [facility] Last Admin: 03/11/20 08:51 Dose: 40 mg Documented by: Umeclidinium [place] [Incruse Ellipta*] 62.5 Mcg/Inh 1 each INH DAILY [facility] Last Admin: 03/11/20 08:56 Dose: 1 each Documented by: Tylenol With Codeine (#4 *Pt Own Med*) 2 each PO Q4H PRN PRN Reason: Pain Propranolol HCl (Inderal) 10 mg PO TID [facility] Last Admin: 03/11/20 05:55 Dose: 10 mg Documented by: Sodium Chloride (Saline Flush) 10 ml FLUSH ASDIRECTED PRN PRN Reason: Keep Vein Open Last Admin: 03/10/20 07:27 Dose: 10 ml Documented by: Sodium Chloride (Saline Flush) 2.5 ml FLUSH ASDIRECTED PRN PRN Reason: Keep Vein Open Last Admin: 03/10/20 07:27 Dose: 2.5 ml Documented by: Sodium Chloride (Saline Flush) 10 ml FLUSH ASDIRECTED PRN PRN Reason: Keep Vein Open Last Admin: 03/10/20 09:09 Dose: 10 ml Documented by: Sodium Chloride (Saline Flush) 2.5 ml FLUSH ASDIRECTED PRN PRN Reason: Keep Vein Open Last Admin: 03/10/20 09:09 Dose: 2.5 ml Documented by: Vancomycin HCl (Pharmacy To Dose - Vancomycin) 0 dose .XX ASDIRECTED [facility] Discontinued Medications Lactated Ringer's (Ringers, Lactated) 1,000 mls @ 999 mls/hr IV .BOLUS ONE Stop: 03/10/20 09:34 Last Admin: 03/10/20 09:08 Dose: 999 mls/hr Documented by: Ceftriaxone Sodium/Dextrose 1 (gm/ Premix) 50 mls @ 100 mls/hr IV ONETIME ONE Stop: 03/10/20 09:56 Last Admin: 03/10/20 11:02 Dose: 100 mls/hr Documented by: Azithromycin 500 mg/ Sodium (Chloride) 250 mls @ 250 mls/hr IV ONETIME [facility] Last Admin: 03/10/20 11:03 Dose: 250 mls/hr Documented by: Sodium Chloride (Normal Saline) 1,000 mls @ 125 mls/hr IV ASDIRECTED [facility] Last Admin: 03/10/20 23:02 Dose: 125 mls/hr Documented by: Vancomycin HCl 1.25 gm/ Sodium (Chloride) 250 mls @ 166.667 mls/hr IV ONETIME ONE Stop: 03/11/20 00:29 Last Admin: 03/10/20 22:53 Dose: 166.667 mls/hr Documented by: Insulin Glargine (Lantus Solostar) 15 units SUBCUT ACBREAKFAST [facility] Last Admin: 03/11/20 08:42 Dose: Not Given Documented by: Tylenol With Codeine (#4 *Pt Own Med*) 2 tab PO Q4H PRN PRN Reason: Pain Last Admin: 03/11/20 05:54 Dose: 2 tab Documented by: - Exam General: Alert, Oriented Neck: Supple Lungs: Clear to Auscultation, Normal Respiratory Effort Cardiovascular: Regular Rate, Regular Rhythm GI/Abdominal Exam: Soft, Non-Tender Extremities: Non-Tender, No Pedal Edema Skin: Warm, Dry, Intact Neurological: No New Focal Deficit Sepsis Event Note - Evaluation Sepsis Screening Result: No Definite Risk - Focused Exam Vital Signs: Vital Signs Temp Pulse Resp BP BP Pulse Ox 03/11/20 08:53 148/45 H 03/11/20 08:52 148/45 H 03/11/20 08:51 148/45 H 03/11/20 08:13 35.9 C L 63 18 148/45 H 97 03/11/20 03:53 37.3 C 61 17 109/51 L 95 03/11/20 00:00 36.2 C 67 17 136/57 L 97 - Problem List Review Problem List Initiated/Reviewed/Updated: Yes - My Orders Last 24 Hours: My Active Orders 03/10/20 11:48 Telemetry Monitoring [Cardiac Monitoring] [RC] Q8H 03/10/20 14:00 Accu Check [Blood Glucose Check, Bedside] [RC] TIDAC 03/10/20 14:29 Ondansetron [Zofran] 4 mg PO TID PRN 03/10/20 14:32 Oxygen Therapy [RC] PRN Up ad [place] [RC] ASDIRECTED VTE/DVT Education [RC] PER UNIT ROUTINE Vital Signs [RC] Q4H PT Evaluation and Treatment [CONS] Routine Sequential Compression Device [OM.PC] Per Unit Routine Resuscitation Status Routine 03/10/20 14:33 Antiembolic Devices [RC] PER UNIT ROUTINE 03/10/20 15:00 Heparin Sodium 5,000 units SUBCUT Q8H 03/10/20 17:00 Insulin Aspart [NovoLOG] See Protocol SUBCUT TIDAC 03/10/20 22:00 Propranolol [Inderal] 10 mg PO TID 03/10/20 22:30 Pharmacy to Dose - Vancomycin See Dose Instructions .XX ASDIRECTED 03/11/20 08:00 Patient's Own Medication [Ptom] 2 each PO Q4H PRN 03/11/20 09:00 Aspirin 81 mg PO DAILY Clopidogrel [Plavix] 75 mg PO DAILY Ezetimibe [Zetia] 10 mg PO DAILY Isosorbide Mononitrate [Imdur] 30 mg PO DAILY Losartan [Cozaar] 25 mg PO DAILY Pantoprazole [ProTONIX] 40 mg PO DAILY Patient's Own Medication [Ptom] 1 each INH DAILY amLODIPine [Norvasc] 5 mg PO DAILY 03/11/20 11:00 Vancomycin 750 mg Sodium Chloride 0.9% [Normal Saline (AdvBag)] 250 ml IV Q12H 03/11/20 11:16 MAGNESIUM [CHEM] Routine carisoprodoL [Soma] 350 mg PO TID PRN 03/11/20 11:20 CORONAVIRUS COVID-19 PCR PHL Routine CULTURE BLOOD [BC] Stat CULTURE BLOOD [BC] Stat Blood Culture x2 Reflex Set [OM.PC] Stat 03/11/20 14:00 Azithromycin [Zithromax] 500 mg PO Q24H cefTRIAXone [Rocephin in Dextrose,Iso-Osm 1 GM/50 ML] 1 gm Premix Bag 1 bag IV Q24H 03/12/20 05:11 BASIC METABOLIC PANEL,BMP [CHEM] AM CBC WITH AUTO DIFF [HEME] AM 03/12/20 07:30 Insulin Glarg,Human.Rec.Analog [LantUS Solostar] 5 units SUBCUT ACBREAKFAST 03/13/20 05:11 BASIC METABOLIC PANEL,BMP [CHEM] AM CBC WITH AUTO DIFF [HEME] AM 03/14/20 05:11 BASIC METABOLIC PANEL,BMP [CHEM] AM CBC WITH AUTO DIFF [HEME] AM - Plan Plan:: 64 yo female admitted for possible pneumonia and UTI. 1/2 blood culture bottles growing gram positive cocci. We will start vancomycin and continue Rocephin and Azithromycin. Will consult PT regarding patient's dizziness.
[2020-03-11] MEDS: cefTRIAXone 1 GM in Premix Bag 1 BAG IV SCH (13:36)
[2020-03-11] MEDS: Azithromycin 250 MG Tab PO SCH (14:22)
[2020-03-11] MEDS ORDERED: Calcium Gluconate 10% 1 GM/10 ML SDV IV ONE (17:27)
[2020-03-12] MEDS: TYLENOL WITH CODEINE PO PRN ×4 (05:54→21:39)
[2020-03-12] MEDS: Propranolol 20 MG Tab PO SCH ×3 (05:56→21:37)
[2020-03-12 06:06] LABS: BLOOD UREA NITROGEN,BUN 7 mg/dL (7.0-18.0); CARBON DIOXIDE,CO2 19.4 mmol/L (21.0-32.0); CHLORIDE,CL 104 mmol/L (98-107); GLUCOSE RANDOM 235 mg/dL (74-106); POTASSIUM,K 3.9 mmol/L (3.5-5.1); SODIUM,NA 138 mmol/L (136-145)
[2020-03-12] MEDS: Heparin Sodium 5,000 Units/ML Vial SUBCUT SCH ×3 (06:25→22:34)
[2020-03-12] MEDS: Insulin Glargine,Human Rec. Analog 100 Units/ML 3 ML Pen SUBCUT SCH (07:44)
[2020-03-12] MEDS: Insulin Aspart 100 Units/ML 3 ML Pen SUBCUT SCH ×3 (07:49→18:23)
[2020-03-12] MEDS: Clopidogrel 75 MG Tab PO SCH (10:18)
[2020-03-12] MEDS: Pantoprazole 40 MG Tab.CR PO SCH (10:18)
[2020-03-12] MEDS: Ezetimibe 10 MG Tab PO SCH (10:18)
[2020-03-12] MEDS: amLODIPine 5 MG Tab PO SCH (11:18)
[2020-03-12] MEDS: Isosorbide Mononitrate 30 MG Tab.ER PO SCH (11:18)
[2020-03-12] MEDS: Losartan 50 MG Tab PO SCH (11:19)
[2020-03-12] MEDS: UMECLIDINIUM BROMIDE INH SCH (11:23)
--- NOTE | 2020-03-12 14:12 | PCM.PN ---
- General Info Date of Service: 03/12/20 - Review of Systems Systems Review Comment:: feeling better, dizziness has improved - Patient Data Vitals - Most Recent: Last Vital Signs Temp 36.9 C 03/12/20 11:00 Pulse 69 03/12/20 12:37 Resp 16 03/12/20 11:00 BP 149/50 H 03/12/20 12:37 Pulse Ox 96 03/12/20 11:00 Weight - Most Recent: 45.586 kg I&O - Last 24 Hours: Intake & Output 03/11/20 03/12/20 03/12/20 22:59 06:59 14:59 Intake Total 1650 800 Output Total 1050 550 Balance 600 250 Lab Results Last 24 Hours: Laboratory Results - last 24 hr 03/11/20 03/11/20 03/12/20 Range/Units 17:16 17:17 05:00 WBC 10.90 (4.0-11.0) K/uL RBC 3.45 L (4.30-5.90) M/uL Hgb 10.3 L (12.0-16.0) g/dL Hct 31.3 L (36.0-46.0) % MCV 90.7 (80.0-98.0) fL MCH 29.9 (27.0-32.0) pg MCHC 32.9 (31.0-37.0) g/dL RDW Std Deviation 57.9 (28.0-62.0) fl RDW Coeff of Hesham 17 H (11.0-15.0) % Plt Count 319 (150-400) K/uL MPV 10.70 (7.40-12.00) fL Neut % (Auto) 65.4 (48.0-80.0) % Lymph % (Auto) 16.6 (16.0-40.0) % [place] % (Auto) 15.7 H (0.0-15.0) % Eos % (Auto) 1.8 (0.0-7.0) % Baso % (Auto) 0.5 (0.0-1.5) % Neut # (Auto) 7.1 H (1.4-5.7) K/uL Lymph # (Auto) 1.8 (0.6-2.4) K/uL [place] # (Auto) 1.7 H (0.0-0.8) K/uL Eos # (Auto) 0.2 (0.0-0.7) K/uL Baso # (Auto) 0.1 (0.0-0.1) K/uL Nucleated RBC % 0.0 /100WBC Nucleated RBCs # 0 K/uL Ionized Calcium 3.9 L (4.6-5.1) mg/dL Sodium (136-145) mmol/L Potassium (3.5-5.1) mmol/L Chloride (98-107) mmol/L Carbon Dioxide (21.0-32.0) mmol/L BUN (7.0-18.0) mg/dL Creatinine (0.6-1.0) mg/dL Est Cr Clr Drug Dosing mL/min Estimated GFR (MDRD) ml/min Glucose (74-106) mg/dL POC Glucose 207 H (60-110) mg/dL Calcium (8.5-10.1) mg/dL 03/12/20 03/12/20 03/12/20 Range/Units 05:00 06:24 11:36 WBC (4.0-11.0) K/uL RBC (4.30-5.90) M/uL Hgb (12.0-16.0) g/dL Hct (36.0-46.0) % MCV (80.0-98.0) fL MCH (27.0-32.0) pg MCHC (31.0-37.0) g/dL RDW Std Deviation (28.0-62.0) fl RDW Coeff of Hesham (11.0-15.0) % Plt Count (150-400) K/uL MPV (7.40-12.00) fL Neut % (Auto) (48.0-80.0) % Lymph % (Auto) (16.0-40.0) % [place] % (Auto) (0.0-15.0) % Eos % (Auto) (0.0-7.0) % Baso % (Auto) (0.0-1.5) % Neut # (Auto) (1.4-5.7) K/uL Lymph # (Auto) (0.6-2.4) K/uL [place] # (Auto) (0.0-0.8) K/uL Eos # (Auto) (0.0-0.7) K/uL Baso # (Auto) (0.0-0.1) K/uL Nucleated RBC % /100WBC Nucleated RBCs # K/uL Ionized Calcium (4.6-5.1) mg/dL Sodium 138 (136-145) mmol/L Potassium 3.9 (3.5-5.1) mmol/L Chloride 104 (98-107) mmol/L Carbon Dioxide 19.4 L (21.0-32.0) mmol/L BUN 7 (7.0-18.0) mg/dL Creatinine 0.7 (0.6-1.0) mg/dL Est Cr Clr Drug Dosing 59.20 mL/min Estimated GFR (MDRD) > 60.0 ml/min Glucose 235 H (74-106) mg/dL POC Glucose 261 H 223 H (60-110) mg/dL Calcium 6.8 L (8.5-10.1) mg/dL Diony Results Last 24 Hours: Microbiology 03/11/20 12:16 Aerobic Blood Culture - Preliminary Blood - Venous - Lab Draw NO GROWTH AFTER 1 DAY Anaerobic Blood Culture - Final 03/11/20 11:55 Aerobic Blood Culture - Preliminary Blood - Venous NO GROWTH AFTER 1 DAY Anaerobic Blood Culture - Final 03/10/20 09:20 Aerobic Blood Culture - Preliminary Blood - Venous - Lab Draw Anaerobic Blood Culture - Final 03/10/20 09:11 Aerobic Blood Culture - Preliminary Blood - Venous NO GROWTH AFTER 2 DAYS Anaerobic Blood Culture - Preliminary NO GROWTH AFTER 2 DAYS Med Orders - Current: Current Medications Amlodipine Besylate (Norvasc) 5 mg PO DAILY [facility] Last Admin: 03/12/20 11:18 Dose: 5 mg Documented by: Azithromycin (Zithromax) 500 mg PO Q24H [facility] Last Admin: 03/11/20 14:22 Dose: 500 mg Documented by: Carisoprodol (Soma) 350 mg PO TID PRN PRN Reason: Muscle Spasm Last Admin: 03/11/20 22:19 Dose: 350 mg Documented by: Clopidogrel Bisulfate (Plavix) 75 mg PO DAILY [facility] Last Admin: 03/12/20 10:18 Dose: 75 mg Documented by: Ezetimibe (Zetia) 10 mg PO DAILY [facility] Last Admin: 09/29/20 10:18 Dose: 10 mg Documented by: Heparin Sodium (Porcine) (Heparin Sodium) 5,000 units SUBCUT Q8H [facility] Last Admin: 03/12/20 06:25 Dose: 5,000 units Documented by: Ceftriaxone Sodium/Dextrose 1 (gm/ Premix) 50 mls @ 100 mls/hr IV Q24H [facility] Last Admin: 03/11/20 13:36 Dose: 100 mls/hr Documented by: Vancomycin HCl 750 mg/ Sodium (Chloride) 250 mls @ 250 mls/hr IV Q12H [facility] Last Admin: 03/12/20 11:28 Dose: 250 mls/hr Documented by: Calcium Gluconate 1 gm/ Sodium (Chloride) 60 mls @ 120 mls/hr IV NOW ONE Stop: 03/12/20 14:38 Insulin Aspart (Novolog) 0 unit SUBCUT TIDAC [facility]; Protocol Last Admin: 03/12/20 11:53 Dose: 2 units Documented by: Insulin Glargine (Lantus Solostar) 5 units SUBCUT ACBREAKFAST [facility] Last Admin: 03/12/20 07:44 Dose: 5 units Documented by: Isosorbide Mononitrate (Imdur) 30 mg PO DAILY [facility] Last Admin: 03/12/20 11:18 Dose: 30 mg Documented by: Losartan Potassium (Cozaar) 25 mg PO DAILY [facility] Last Admin: 03/12/20 11:19 Dose: 25 mg Documented by: Ondansetron HCl (Zofran) 4 mg PO TID PRN PRN Reason: Nausea Pantoprazole Sodium (Protonix) 40 mg PO DAILY [facility] Last Admin: 03/12/20 10:18 Dose: 40 mg Documented by: Umeclidinium [place] [Incruse Ellipta*] 62.5 Mcg/Inh 1 each INH DAILY [facility] Last Admin: 03/12/20 11:23 Dose: 1 each Documented by: Tylenol With Codeine (#4 *Pt Own Med*) 2 each PO Q4H PRN PRN Reason: Pain Last Admin: 03/12/20 11:25 Dose: 2 each Documented by: Propranolol HCl (Inderal) 10 mg PO TID [facility] Last Admin: 03/12/20 05:56 Dose: 10 mg Documented by: Sodium Chloride (Saline Flush) 10 ml FLUSH ASDIRECTED PRN PRN Reason: Keep Vein Open Last Admin: 03/10/20 07:27 Dose: 10 ml Documented by: Sodium Chloride (Saline Flush) 2.5 ml FLUSH ASDIRECTED PRN PRN Reason: Keep Vein Open Last Admin: 03/10/20 07:27 Dose: 2.5 ml Documented by: Sodium Chloride (Saline Flush) 10 ml FLUSH ASDIRECTED PRN PRN Reason: Keep Vein Open Last Admin: 03/10/20 09:09 Dose: 10 ml Documented by: Sodium Chloride (Saline Flush) 2.5 ml FLUSH ASDIRECTED PRN PRN Reason: Keep Vein Open Last Admin: 03/10/20 09:09 Dose: 2.5 ml Documented by: Vancomycin HCl (Pharmacy To Dose - Vancomycin) 0 dose .XX ASDIRECTED [facility] Discontinued Medications Aspirin (Aspirin) 81 mg PO DAILY [facility] Last Admin: 03/11/20 08:53 Dose: 81 mg Documented by: Calcium Gluconate (Calcium Gluconate) 1 gm IV ONETIME ONE Stop: 03/11/20 17:28 Last Admin: 03/11/20 18:24 Dose: 1 gm Documented by: Lactated Ringer's (Ringers, Lactated) 1,000 mls @ 999 mls/hr IV .BOLUS ONE Stop: 03/10/20 09:34 Last Admin: 03/10/20 09:08 Dose: 999 mls/hr Documented by: Ceftriaxone Sodium/Dextrose 1 (gm/ Premix) 50 mls @ 100 mls/hr IV ONETIME ONE Stop: 03/10/20 09:56 Last Admin: 03/10/20 11:02 Dose: 100 mls/hr Documented by: Azithromycin 500 mg/ Sodium (Chloride) 250 mls @ 250 mls/hr IV ONETIME [facility] Last Admin: 03/10/20 11:03 Dose: 250 mls/hr Documented by: Sodium Chloride (Normal Saline) 1,000 mls @ 125 mls/hr IV ASDIRECTED [facility] Last Admin: 03/10/20 23:02 Dose: 125 mls/hr Documented by: Vancomycin HCl 1.25 gm/ Sodium (Chloride) 250 mls @ 166.667 mls/hr IV ONETIME ONE Stop: 03/11/20 00:29 Last Admin: 03/10/20 22:53 Dose: 166.667 mls/hr Documented by: Insulin Glargine (Lantus Solostar) 15 units SUBCUT ACBREAKFAST [facility] Last Admin: 03/11/20 08:42 Dose: Not Given Documented by: Tylenol With Codeine (#4 *Pt Own Med*) 2 tab PO Q4H PRN PRN Reason: Pain Last Admin: 03/11/20 05:54 Dose: 2 tab Documented by: Potassium Chloride (Klor-Con M20) 40 meq PO ONETIME ONE Stop: 03/11/20 11:23 Last Admin: 03/11/20 12:07 Dose: 40 meq Documented by: - Exam General: Alert, Oriented Neck: Supple Lungs: Clear to Auscultation, Normal Respiratory Effort Cardiovascular: Regular Rate, Regular Rhythm GI/Abdominal Exam: Soft, Non-Tender, No Distention Extremities: Non-Tender, No Pedal Edema Skin: Warm, Dry, Intact Neurological: No New Focal Deficit Sepsis Event Note - Evaluation Sepsis Screening Result: No Definite Risk - Focused Exam Vital Signs: Vital Signs Temp Pulse Resp BP BP Pulse Ox 03/12/20 12:37 69 149/50 H 03/12/20 11:19 121/41 L 03/12/20 11:18 121/41 L 03/12/20 11:00 36.9 C 73 16 121/41 L 96 03/12/20 07:00 36.7 C 55 L 15 130/42 L 94 L 03/12/20 03:00 36.8 C 62 18 140/67 96 - Problem List Review Problem List Initiated/Reviewed/Updated: Yes - My Orders Last 24 Hours: My Active Orders 03/11/20 14:00 Azithromycin [Zithromax] 500 mg PO Q24H cefTRIAXone [Rocephin in Dextrose,Iso-Osm 1 GM/50 ML] 1 gm Premix Bag 1 bag IV Q24H 03/12/20 07:30 Insulin Glarg,Human.Rec.Analog [LantUS Solostar] 5 units SUBCUT ACBREAKFAST 03/12/20 14:09 Calcium Gluconate 1 gm Sodium Chloride 0.9% [Normal Saline] 50 ml IV NOW 03/13/20 05:11 BASIC METABOLIC PANEL,BMP [CHEM] AM CBC WITH AUTO DIFF [HEME] AM 03/14/20 05:11 BASIC METABOLIC PANEL,BMP [CHEM] AM CBC WITH AUTO DIFF [HEME] AM - Plan Plan:: 64 yo female admitted for possible pneumonia and UTI. 1/4 blood culture bottles growing gram positive cocci. We will continue vancomycin, Rocephin and Azithromycin. PT consulted.
[2020-03-12] MEDS: Azithromycin 250 MG Tab PO SCH (14:40)
[2020-03-12] MEDS: cefTRIAXone 1 GM in Premix Bag 1 BAG IV SCH (14:41)
[2020-03-12] MEDS ORDERED: Iopamidol 755 MG/ML 500 ML Multipack Bottle IVPUSH STA (16:09)
--- NOTE | 2020-03-12 16:14 | CT ---
CT chest (without and with intravenous contrast) Findings: Body wall edema is noted. Small bilateral pleural effusions are noted. Aorta shows no aneurysm. Coronary artery calcification is seen which is fairly extensive. No pericardial thickening is seen. Parenchymal density within the right middle lobe is seen showing air bronchograms which remain stable from prior abdominal CT. Lungs show no acute parenchymal change. Fatty infiltration is seen within the liver. Previous cholecystectomy is noted. Extensive vascular calcification is seen within the kidneys. Bone window settings were reviewed which show no acute osseous finding. Impression: 1. Small bilateral pleural effusions which are an interval change from previous exam. 2. Mild body wall edema is seen which is also an interval change from prior exam. 3. Density with air bronchograms within the right middle lobe which remains stable. 4. No acute parenchymal change is appreciated. Diagnostic code #3 This report was dictated in MDT
[2020-03-13] MEDS: TYLENOL WITH CODEINE PO PRN ×4 (04:42→23:19)
[2020-03-13 05:50] LABS: BLOOD UREA NITROGEN,BUN 6 mg/dL (7.0-18.0); CARBON DIOXIDE,CO2 20.5 mmol/L (21.0-32.0); CHLORIDE,CL 104 mmol/L (98-107); GLUCOSE RANDOM 295 mg/dL (74-106); POTASSIUM,K 4.2 mmol/L (3.5-5.1); SODIUM,NA 139 mmol/L (136-145)
[2020-03-13] MEDS: Propranolol 20 MG Tab PO SCH ×3 (06:25→23:17)
[2020-03-13] MEDS: Heparin Sodium 5,000 Units/ML Vial SUBCUT SCH ×3 (06:26→23:20)
[2020-03-13] MEDS: Insulin Aspart 100 Units/ML 3 ML Pen SUBCUT SCH ×3 (07:48→18:41)
[2020-03-13] MEDS: Insulin Glargine,Human Rec. Analog 100 Units/ML 3 ML Pen SUBCUT SCH (07:49)
[2020-03-13] MEDS: Clopidogrel 75 MG Tab PO SCH (08:51)
[2020-03-13] MEDS: Isosorbide Mononitrate 30 MG Tab.ER PO SCH (08:51)
[2020-03-13] MEDS: Pantoprazole 40 MG Tab.CR PO SCH (08:52)
[2020-03-13] MEDS: Ezetimibe 10 MG Tab PO SCH (08:52)
[2020-03-13] MEDS: amLODIPine 5 MG Tab PO SCH (08:52)
[2020-03-13] MEDS: Losartan 50 MG Tab PO SCH (08:53)
[2020-03-13] MEDS: UMECLIDINIUM BROMIDE INH SCH (08:58)
--- NOTE | 2020-03-13 10:23 | PCM.PN ---
- General Info Date of Service: 03/13/20 - Review of Systems Systems Review Comment:: reports feeling better, still dizzy, had diarrhea this morning. - Patient Data Vitals - Most Recent: Last Vital Signs Temp 37.1 C 03/13/20 08:00 Pulse 66 03/13/20 08:00 Resp 18 03/13/20 08:00 BP 136/63 03/13/20 08:53 Pulse Ox 96 03/13/20 08:00 Weight - Most Recent: 45.586 kg I&O - Last 24 Hours: Intake & Output 03/12/20 03/13/20 03/13/20 22:59 06:59 14:59 Intake Total 450 800 Output Total 750 900 Balance -300 -100 Lab Results Last 24 Hours: Laboratory Results - last 24 hr 03/12/20 03/12/20 03/13/20 Range/Units 11:36 18:06 05:05 WBC 16.45 H (4.0-11.0) K/uL RBC 3.47 L (4.30-5.90) M/uL Hgb 10.5 L (12.0-16.0) g/dL Hct 31.5 L (36.0-46.0) % MCV 90.8 (80.0-98.0) fL MCH 30.3 (27.0-32.0) pg MCHC 33.3 (31.0-37.0) g/dL RDW Std Deviation 56.6 (28.0-62.0) fl RDW Coeff of Hesham 17 H (11.0-15.0) % Plt Count 291 (150-400) K/uL MPV 10.70 (7.40-12.00) fL Neut % (Auto) 81.6 H (48.0-80.0) % Lymph % (Auto) 8.3 L (16.0-40.0) % [place] % (Auto) 8.9 (0.0-15.0) % Eos % (Auto) 0.9 (0.0-7.0) % Baso % (Auto) 0.3 (0.0-1.5) % Neut # (Auto) 13.4 H (1.4-5.7) K/uL Lymph # (Auto) 1.4 (0.6-2.4) K/uL [place] # (Auto) 1.5 H (0.0-0.8) K/uL Eos # (Auto) 0.1 (0.0-0.7) K/uL Baso # (Auto) 0.1 (0.0-0.1) K/uL Nucleated RBC % 0.0 /100WBC Nucleated RBCs # 0 K/uL Sodium (136-145) mmol/L Potassium (3.5-5.1) mmol/L Chloride (98-107) mmol/L Carbon Dioxide (21.0-32.0) mmol/L BUN (7.0-18.0) mg/dL Creatinine (0.6-1.0) mg/dL Est Cr Clr Drug Dosing mL/min Estimated GFR (MDRD) ml/min Glucose (74-106) mg/dL POC Glucose 223 H 143 H (60-110) mg/dL Calcium (8.5-10.1) mg/dL 03/13/20 03/13/20 Range/Units 05:05 06:31 WBC (4.0-11.0) K/uL RBC (4.30-5.90) M/uL Hgb (12.0-16.0) g/dL Hct (36.0-46.0) % MCV (80.0-98.0) fL MCH (27.0-32.0) pg MCHC (31.0-37.0) g/dL RDW Std Deviation (28.0-62.0) fl RDW Coeff of Hesham (11.0-15.0) % Plt Count (150-400) K/uL MPV (7.40-12.00) fL Neut % (Auto) (48.0-80.0) % Lymph % (Auto) (16.0-40.0) % [place] % (Auto) (0.0-15.0) % Eos % (Auto) (0.0-7.0) % Baso % (Auto) (0.0-1.5) % Neut # (Auto) (1.4-5.7) K/uL Lymph # (Auto) (0.6-2.4) K/uL [place] # (Auto) (0.0-0.8) K/uL Eos # (Auto) (0.0-0.7) K/uL Baso # (Auto) (0.0-0.1) K/uL Nucleated RBC % /100WBC Nucleated RBCs # K/uL Sodium 139 (136-145) mmol/L Potassium 4.2 (3.5-5.1) mmol/L Chloride 104 (98-107) mmol/L Carbon Dioxide 20.5 L (21.0-32.0) mmol/L BUN 6 L (7.0-18.0) mg/dL Creatinine 0.8 (0.6-1.0) mg/dL Est Cr Clr Drug Dosing 51.80 mL/min Estimated GFR (MDRD) > 60.0 ml/min Glucose 295 H (74-106) mg/dL POC Glucose 288 H (60-110) mg/dL Calcium 7.1 L (8.5-10.1) mg/dL Diony Results Last 24 Hours: Microbiology 03/10/20 09:11 Aerobic Blood Culture - Preliminary Blood - Venous NO GROWTH AFTER 3 DAYS Anaerobic Blood Culture - Preliminary NO GROWTH AFTER 3 DAYS 03/11/20 11:55 Aerobic Blood Culture - Preliminary Blood - Venous Anaerobic Blood Culture - Final 03/10/20 08:40 Urine Culture - Final Urine, Clean Catch Staphylococcus Aureus Normal Urogenital Vanessa 03/11/20 12:16 Aerobic Blood Culture - Preliminary Blood - Venous - Lab Draw NO GROWTH AFTER 1 DAY Anaerobic Blood Culture - Final 03/10/20 09:20 Aerobic Blood Culture - Preliminary Blood - Venous - Lab Draw Anaerobic Blood Culture - Final Med Orders - Current: Current Medications Amlodipine Besylate (Norvasc) 5 mg PO DAILY [facility] Last Admin: 03/13/20 08:52 Dose: 5 mg Documented by: Azithromycin (Zithromax) 500 mg PO Q24H [facility] Last Admin: 03/12/20 14:40 Dose: 500 mg Documented by: Carisoprodol (Soma) 350 mg PO TID PRN PRN Reason: Muscle Spasm Last Admin: 03/12/20 21:38 Dose: 350 mg Documented by: Clopidogrel Bisulfate (Plavix) 75 mg PO DAILY [facility] Last Admin: 03/13/20 08:51 Dose: 75 mg Documented by: Ezetimibe (Zetia) 10 mg PO DAILY [facility] Last Admin: 03/13/20 08:52 Dose: 10 mg Documented by: Heparin Sodium (Porcine) (Heparin Sodium) 5,000 units SUBCUT Q8H [facility] Last Admin: 03/13/20 06:26 Dose: 5,000 units Documented by: Ceftriaxone Sodium/Dextrose 1 (gm/ Premix) 50 mls @ 100 mls/hr IV Q24H [facility] Last Admin: 03/12/20 14:41 Dose: 100 mls/hr Documented by: Vancomycin HCl 750 mg/ Sodium (Chloride) 250 mls @ 250 mls/hr IV Q12H [facility] Last Admin: 03/12/20 22:26 Dose: 250 mls/hr Documented by: Insulin Aspart (Novolog) 0 unit SUBCUT TIDAC [facility]; Protocol Last Admin: 03/13/20 07:48 Dose: 3 units Documented by: Insulin Glargine (Lantus Solostar) 5 units SUBCUT ACBREAKFAST [facility] Last Admin: 03/13/20 07:49 Dose: 5 units Documented by: Isosorbide Mononitrate (Imdur) 30 mg PO DAILY [facility] Last Admin: 03/13/20 08:51 Dose: 30 mg Documented by: Losartan Potassium (Cozaar) 25 mg PO DAILY [facility] Last Admin: 03/13/20 08:53 Dose: 25 mg Documented by: Ondansetron HCl (Zofran) 4 mg PO TID PRN PRN Reason: Nausea Pantoprazole Sodium (Protonix) 40 mg PO DAILY [facility] Last Admin: 03/13/20 08:52 Dose: 40 mg Documented by: Umeclidinium [place] [Incruse Ellipta*] 62.5 Mcg/Inh 1 each INH DAILY [facility] Last Admin: 03/13/20 08:58 Dose: 1 each Documented by: Tylenol With Codeine (#4 *Pt Own Med*) 2 each PO Q4H PRN PRN Reason: Pain Last Admin: 03/13/20 04:42 Dose: 2 each Documented by: Propranolol HCl (Inderal) 10 mg PO TID [facility] Last Admin: 03/13/20 06:25 Dose: 10 mg Documented by: Sodium Chloride (Saline Flush) 10 ml FLUSH ASDIRECTED PRN PRN Reason: Keep Vein Open Last Admin: 03/10/20 07:27 Dose: 10 ml Documented by: Sodium Chloride (Saline Flush) 2.5 ml FLUSH ASDIRECTED PRN PRN Reason: Keep Vein Open Last Admin: 03/10/20 07:27 Dose: 2.5 ml Documented by: Sodium Chloride (Saline Flush) 10 ml FLUSH ASDIRECTED PRN PRN Reason: Keep Vein Open Last Admin: 03/10/20 09:09 Dose: 10 ml Documented by: Sodium Chloride (Saline Flush) 2.5 ml FLUSH ASDIRECTED PRN PRN Reason: Keep Vein Open Last Admin: 03/10/20 09:09 Dose: 2.5 ml Documented by: Vancomycin HCl (Pharmacy To Dose - Vancomycin) 0 dose .XX ASDIRECTED [facility] Discontinued Medications Aspirin (Aspirin) 81 mg PO DAILY [facility] Last Admin: 03/11/20 08:53 Dose: 81 mg Documented by: Calcium Gluconate (Calcium Gluconate) 1 gm IV ONETIME ONE Stop: 03/11/20 17:28 Last Admin: 03/11/20 18:24 Dose: 1 gm Documented by: Lactated Ringer's (Ringers, Lactated) 1,000 mls @ 999 mls/hr IV .BOLUS ONE Stop: 03/10/20 09:34 Last Admin: 03/10/20 09:08 Dose: 999 mls/hr Documented by: Ceftriaxone Sodium/Dextrose 1 (gm/ Premix) 50 mls @ 100 mls/hr IV ONETIME ONE Stop: 03/10/20 09:56 Last Admin: 03/10/20 11:02 Dose: 100 mls/hr Documented by: Azithromycin 500 mg/ Sodium (Chloride) 250 mls @ 250 mls/hr IV ONETIME [facility] Last Admin: 03/10/20 11:03 Dose: 250 mls/hr Documented by: Sodium Chloride (Normal Saline) 1,000 mls @ 125 mls/hr IV ASDIRECTED [facility] Last Admin: 03/10/20 23:02 Dose: 125 mls/hr Documented by: Vancomycin HCl 1.25 gm/ Sodium (Chloride) 250 mls @ 166.667 mls/hr IV ONETIME ONE Stop: 03/11/20 00:29 Last Admin: 03/10/20 22:53 Dose: 166.667 mls/hr Documented by: Calcium Gluconate 1 gm/ Sodium (Chloride) 60 mls @ 60 mls/hr IV NOW ONE Stop: 03/12/20 15:29 Last Admin: 03/12/20 16:03 Dose: 60 mls/hr Documented by: Insulin Glargine (Lantus Solostar) 15 units SUBCUT ACBREAKFAST [facility] Last Admin: 03/11/20 08:42 Dose: Not Given Documented by: Iopamidol (Isovue Multipack-370 (76%)) 75 ml IVPUSH ONETIME STA Stop: 03/12/20 16:10 Last Admin: 03/12/20 16:09 Dose: 75 ml Documented by: Tylenol With Codeine (#4 *Pt Own Med*) 2 tab PO Q4H PRN PRN Reason: Pain Last Admin: 03/11/20 05:54 Dose: 2 tab Documented by: Potassium Chloride (Klor-Con M20) 40 meq PO ONETIME ONE Stop: 03/11/20 11:23 Last Admin: 03/11/20 12:07 Dose: 40 meq Documented by: - Exam General: Alert, Oriented Neck: Supple Lungs: Clear to Auscultation, Normal Respiratory Effort Cardiovascular: Regular Rate, Regular Rhythm Extremities: Pedal Edema (+1) Skin: Warm, Dry, Intact Sepsis Event Note - Evaluation Sepsis Screening Result: No Definite Risk - Focused Exam Vital Signs: Vital Signs Temp Pulse Resp BP BP Pulse Ox 03/13/20 08:53 136/63 03/13/20 08:52 136/63 03/13/20 08:51 136/63 03/13/20 08:00 37.1 C 66 18 136/63 96 03/13/20 04:00 36.8 C 68 18 130/62 97 03/13/20 00:00 36.8 C 72 18 135/60 96 - Problem List Review Problem List Initiated/Reviewed/Updated: Yes - My Orders Last 24 Hours: My Active Orders 03/13/20 10:18 C DIFFICILE AG/TOXIN W/REFLEX [RM] Routine 03/13/20 10:19 CULTURE BLOOD [BC] Stat CULTURE BLOOD [BC] Stat Blood Culture x2 Reflex Set [OM.PC] Stat 03/13/20 10:20 Echo Comp wo Cont [US] Routine 03/14/20 05:11 BASIC METABOLIC PANEL,BMP [CHEM] AM CBC WITH AUTO DIFF [HEME] AM - Plan Plan:: 64 yo female admitted for possible pneumonia and UTI. Discovered to have bacteremia with 3/6 blood culture bottles growing gram positive cocci. Urine culture growing staph aureus. We will continue vancomycin, Rocephin and Azithromycin. Will check for C.diff due to loose stools and increase in white count this morning. Echocardiogram ordered.
[2020-03-13] MEDS: Azithromycin 250 MG Tab PO SCH (14:13)
[2020-03-13] MEDS: cefTRIAXone 1 GM in Premix Bag 1 BAG IV SCH (14:14)
[2020-03-14] MEDS: Heparin Sodium 5,000 Units/ML Vial SUBCUT SCH ×3 (06:00→22:42)
[2020-03-14] MEDS: Propranolol 20 MG Tab PO SCH ×3 (06:00→22:33)
[2020-03-14] MEDS: TYLENOL WITH CODEINE PO PRN ×4 (06:01→22:38)
[2020-03-14] MEDS: Insulin Glargine,Human Rec. Analog 100 Units/ML 3 ML Pen SUBCUT SCH (07:05)
[2020-03-14] MEDS: Insulin Aspart 100 Units/ML 3 ML Pen SUBCUT SCH ×3 (07:08→17:44)
[2020-03-14 07:15] LABS: BLOOD UREA NITROGEN,BUN 7 mg/dL (7.0-18.0); CARBON DIOXIDE,CO2 16.5 mmol/L (21.0-32.0); CHLORIDE,CL 104 mmol/L (98-107); GLUCOSE RANDOM 309 mg/dL (74-106); POTASSIUM,K 3.9 mmol/L (3.5-5.1); SODIUM,NA 137 mmol/L (136-145)
[2020-03-14] MEDS: amLODIPine 5 MG Tab PO SCH (08:59)
[2020-03-14] MEDS: Pantoprazole 40 MG Tab.CR PO SCH (09:00)
[2020-03-14] MEDS: Losartan 50 MG Tab PO SCH (09:00)
[2020-03-14] MEDS: Clopidogrel 75 MG Tab PO SCH (09:01)
[2020-03-14] MEDS: Isosorbide Mononitrate 30 MG Tab.ER PO SCH (09:01)
[2020-03-14] MEDS: Ezetimibe 10 MG Tab PO SCH (09:01)
[2020-03-14] MEDS: UMECLIDINIUM BROMIDE INH SCH (09:02)
[2020-03-14] MEDS: Vancomycin 125 MG Cap PO SCH ×3 (09:06→19:42)
--- NOTE | 2020-03-14 11:36 | PCM.PN ---
- General Info Date of Service: 03/14/20 Admission Dx/Problem (Free Text): Admission Diagnosis/Problem Admission Diagnosis/Problem Pneumonia, bacteremia, UTI Subjective Update: DOing well today, reports some incontinent stools. Dizziness has improved, this was mainly when she was up moving long distances, but that again is much better. No chest pain. Dyspnea is at baseline. No other concerns. Functional Status: Reports: Pain Controlled, Tolerating Diet, Ambulating, Urinating - Review of Systems General: Reports: No Symptoms. Denies: Fatigue, Malaise HEENT: Reports: No Symptoms. Denies: Headaches, Sore Throat, Visual Changes Pulmonary: Reports: No Symptoms. Denies: Shortness of Breath Cardiovascular: Reports: No Symptoms. Denies: Chest Pain Gastrointestinal: Reports: Diarrhea. Denies: Abdominal Pain, Nausea, Vomiting Genitourinary: Reports: No Symptoms. Denies: Dysuria, Frequency, Burning 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: Reports: No Symptoms Skin: Reports: No Symptoms Neurological: Reports: Dizziness (improving) Psychiatric: Reports: No Symptoms - Patient Data Vitals - Most Recent: Last Vital Signs Temp 97.1 F 03/14/20 08:00 Pulse 70 03/14/20 08:00 Resp 18 03/14/20 08:00 BP 141/51 H 03/14/20 09:01 Pulse Ox 96 03/14/20 08:00 Weight - Most Recent: 45.586 kg I&O - Last 24 Hours: Intake & Output 03/13/20 03/14/20 03/14/20 22:59 06:59 14:59 Intake Total 700 700 Output Total 500 1000 Balance 200 -300 Lab Results Last 24 Hours: Laboratory Results - last 24 hr 03/13/20 03/13/20 03/13/20 Range/Units 11:11 12:21 18:18 WBC (4.0-11.0) K/uL RBC (4.30-5.90) M/uL Hgb (12.0-16.0) g/dL Hct (36.0-46.0) % MCV (80.0-98.0) fL MCH (27.0-32.0) pg MCHC (31.0-37.0) g/dL RDW Std Deviation (28.0-62.0) fl RDW Coeff of Hesham (11.0-15.0) % Plt Count (150-400) K/uL MPV (7.40-12.00) fL Neut % (Auto) (48.0-80.0) % Lymph % (Auto) (16.0-40.0) % Mcleod % (Auto) (0.0-15.0) % Eos % (Auto) (0.0-7.0) % Baso % (Auto) (0.0-1.5) % Neut # (Auto) (1.4-5.7) K/uL Lymph # (Auto) (0.6-2.4) K/uL Mcleod # (Auto) (0.0-0.8) K/uL Eos # (Auto) (0.0-0.7) K/uL Baso # (Auto) (0.0-0.1) K/uL Nucleated RBC % /100WBC Nucleated RBCs # K/uL Sodium (136-145) mmol/L Potassium (3.5-5.1) mmol/L Chloride (98-107) mmol/L Carbon Dioxide (21.0-32.0) mmol/L BUN (7.0-18.0) mg/dL Creatinine (0.6-1.0) mg/dL Est Cr Clr Drug Dosing mL/min Estimated GFR (MDRD) ml/min Glucose (74-106) mg/dL POC Glucose 228 H 204 H (60-110) mg/dL Calcium (8.5-10.1) mg/dL Vancomycin Trough 19.0 H (5.0-10.0) ug/mL 03/14/20 03/14/20 03/14/20 Range/Units 06:53 07:03 07:40 WBC 17.41 H (4.0-11.0) K/uL RBC 3.85 L (4.30-5.90) M/uL Hgb 11.4 L (12.0-16.0) g/dL Hct 34.9 L (36.0-46.0) % MCV 90.6 (80.0-98.0) fL MCH 29.6 (27.0-32.0) pg MCHC 32.7 (31.0-37.0) g/dL RDW Std Deviation 57.8 (28.0-62.0) fl RDW Coeff of Hesham 18 H (11.0-15.0) % Plt Count 247 (150-400) K/uL MPV 11.30 (7.40-12.00) fL Neut % (Auto) 84.7 H (48.0-80.0) % Lymph % (Auto) 7.0 L (16.0-40.0) % Mcleod % (Auto) 7.1 (0.0-15.0) % Eos % (Auto) 0.7 (0.0-7.0) % Baso % (Auto) 0.5 (0.0-1.5) % Neut # (Auto) 14.8 H (1.4-5.7) K/uL Lymph # (Auto) 1.2 (0.6-2.4) K/uL Mcleod # (Auto) 1.2 H (0.0-0.8) K/uL Eos # (Auto) 0.1 (0.0-0.7) K/uL Baso # (Auto) 0.1 (0.0-0.1) K/uL Nucleated RBC % 0.0 /100WBC Nucleated RBCs # 0 K/uL Sodium 137 (136-145) mmol/L Potassium 3.9 (3.5-5.1) mmol/L Chloride 104 (98-107) mmol/L Carbon Dioxide 16.5 L (21.0-32.0) mmol/L BUN 7 (7.0-18.0) mg/dL Creatinine 0.7 (0.6-1.0) mg/dL Est Cr Clr Drug Dosing 59.20 mL/min Estimated GFR (MDRD) > 60.0 ml/min Glucose 309 H (74-106) mg/dL POC Glucose 304 H (60-110) mg/dL Calcium 6.8 L (8.5-10.1) mg/dL Vancomycin Trough (5.0-10.0) ug/mL Diony Results Last 24 Hours: Microbiology 03/13/20 10:51 Aerobic Blood Culture - Preliminary Blood - Venous - Lab Draw NO GROWTH AFTER 1 DAY Anaerobic Blood Culture - Preliminary NO GROWTH AFTER 1 DAY 03/13/20 10:51 Aerobic Blood Culture - Preliminary Blood - Venous NO GROWTH AFTER 1 DAY Anaerobic Blood Culture - Preliminary NO GROWTH AFTER 1 DAY 03/10/20 09:20 Aerobic Blood Culture - Final Blood - Venous - Lab Draw Streptococcus Salivarius#2 Anaerobic Blood Culture - Final 03/10/20 09:11 Aerobic Blood Culture - Preliminary Blood - Venous NO GROWTH AFTER 4 DAYS Anaerobic Blood Culture - Preliminary NO GROWTH AFTER 4 DAYS 03/11/20 11:55 Aerobic Blood Culture - Preliminary Blood - Venous Anaerobic Blood Culture - Final 03/13/20 14:40 C. difficile Antigen & Toxins A,B - Final Stool / Feces 03/11/20 12:16 Aerobic Blood Culture - Preliminary Blood - Venous - Lab Draw NO GROWTH AFTER 2 DAYS Anaerobic Blood Culture - Final 03/10/20 08:40 Urine Culture - Final Urine, Clean Catch Staphylococcus Aureus Normal Urogenital Vanessa Med Orders - Current: Current Medications Amlodipine Besylate (Norvasc) 5 mg PO DAILY [facility] Last Admin: 03/14/20 08:59 Dose: 5 mg Documented by: Azithromycin (Zithromax) 500 mg PO Q24H [facility] Last Admin: 03/13/20 14:13 Dose: 500 mg Documented by: Carisoprodol (Soma) 350 mg PO TID PRN PRN Reason: Muscle Spasm Last Admin: 03/13/20 23:34 Dose: 350 mg Documented by: Clopidogrel Bisulfate (Plavix) 75 mg PO DAILY [facility] Last Admin: 03/14/20 09:01 Dose: 75 mg Documented by: Ezetimibe (Zetia) 10 mg PO DAILY [facility] Last Admin: 03/14/20 09:01 Dose: 10 mg Documented by: Heparin Sodium (Porcine) (Heparin Sodium) 5,000 units SUBCUT Q8H [facility] Last Admin: 03/14/20 06:00 Dose: 5,000 units Documented by: Ceftriaxone Sodium/Dextrose 1 (gm/ Premix) 50 mls @ 100 mls/hr IV Q24H [facility] Last Admin: 03/13/20 14:14 Dose: 100 mls/hr Documented by: Vancomycin HCl 750 mg/ Sodium (Chloride) 250 mls @ 250 mls/hr IV Q12H [facility] Last Admin: 03/13/20 23:27 Dose: 250 mls/hr Documented by: Insulin Aspart (Novolog) 0 unit SUBCUT TIDAC [facility]; Protocol Last Admin: 03/14/20 07:08 Dose: 4 units Documented by: Insulin Glargine (Lantus Solostar) 5 units SUBCUT ACBREAKFAST [facility] Last Admin: 03/14/20 07:05 Dose: 5 units Documented by: Isosorbide Mononitrate (Imdur) 30 mg PO DAILY [facility] Last Admin: 03/14/20 09:01 Dose: 30 mg Documented by: Losartan Potassium (Cozaar) 25 mg PO DAILY [facility] Last Admin: 03/14/20 09:00 Dose: 25 mg Documented by: Ondansetron HCl (Zofran) 4 mg PO TID PRN PRN Reason: Nausea Pantoprazole Sodium (Protonix) 40 mg PO DAILY [facility] Last Admin: 03/14/20 09:00 Dose: 40 mg Documented by: Umeclidinium [place] [Incruse Ellipta*] 62.5 Mcg/Inh 1 each INH DAILY [facility] Last Admin: 03/14/20 09:02 Dose: 1 each Documented by: Tylenol With Codeine (#4 *Pt Own Med*) 2 each PO Q4H PRN PRN Reason: Pain Last Admin: 03/14/20 11:28 Dose: 2 each Documented by: Propranolol HCl (Inderal) 10 mg PO TID [facility] Last Admin: 03/14/20 06:00 Dose: 10 mg Documented by: Sodium Chloride (Saline Flush) 10 ml FLUSH ASDIRECTED PRN PRN Reason: Keep Vein Open Last Admin: 03/10/20 07:27 Dose: 10 ml Documented by: Sodium Chloride (Saline Flush) 2.5 ml FLUSH ASDIRECTED PRN PRN Reason: Keep Vein Open Last Admin: 03/10/20 07:27 Dose: 2.5 ml Documented by: Sodium Chloride (Saline Flush) 10 ml FLUSH ASDIRECTED PRN PRN Reason: Keep Vein Open Last Admin: 03/10/20 09:09 Dose: 10 ml Documented by: Sodium Chloride (Saline Flush) 2.5 ml FLUSH ASDIRECTED PRN PRN Reason: Keep Vein Open Last Admin: 03/10/20 09:09 Dose: 2.5 ml Documented by: Vancomycin HCl (Pharmacy To Dose - Vancomycin) 0 dose .XX ASDIRECTED [facility] Vancomycin HCl (Vancocin 125 Mg Capsule) 125 mg PO QID [facility] Last Admin: 03/14/20 09:06 Dose: 125 mg Documented by: Discontinued Medications Aspirin (Aspirin) 81 mg PO DAILY [facility] Last Admin: 03/11/20 08:53 Dose: 81 mg Documented by: Calcium Gluconate (Calcium Gluconate) 1 gm IV ONETIME ONE Stop: 03/11/20 17:28 Last Admin: 03/11/20 18:24 Dose: 1 gm Documented by: Lactated Ringer's (Ringers, Lactated) 1,000 mls @ 999 mls/hr IV .BOLUS ONE Stop: 03/10/20 09:34 Last Admin: 03/10/20 09:08 Dose: 999 mls/hr Documented by: Ceftriaxone Sodium/Dextrose 1 (gm/ Premix) 50 mls @ 100 mls/hr IV ONETIME ONE Stop: 03/10/20 09:56 Last Admin: 03/10/20 11:02 Dose: 100 mls/hr Documented by: Azithromycin 500 mg/ Sodium (Chloride) 250 mls @ 250 mls/hr IV ONETIME [facility] Last Admin: 03/10/20 11:03 Dose: 250 mls/hr Documented by: Sodium Chloride (Normal Saline) 1,000 mls @ 125 mls/hr IV ASDIRECTED [facility] Last Admin: 03/10/20 23:02 Dose: 125 mls/hr Documented by: Vancomycin HCl 1.25 gm/ Sodium (Chloride) 250 mls @ 166.667 mls/hr IV ONETIME ONE Stop: 03/11/20 00:29 Last Admin: 03/10/20 22:53 Dose: 166.667 mls/hr Documented by: Calcium Gluconate 1 gm/ Sodium (Chloride) 60 mls @ 60 mls/hr IV NOW ONE Stop: 03/12/20 15:29 Last Admin: 03/12/20 16:03 Dose: 60 mls/hr Documented by: Insulin Glargine (Lantus Solostar) 15 units SUBCUT ACBREAKFAST [facility] Last Admin: 03/11/20 08:42 Dose: Not Given Documented by: Iopamidol (Isovue Multipack-370 (76%)) 75 ml IVPUSH ONETIME STA Stop: 03/12/20 16:10 Last Admin: 03/12/20 16:09 Dose: 75 ml Documented by: Tylenol With Codeine (#4 *Pt Own Med*) 2 tab PO Q4H PRN PRN Reason: Pain Last Admin: 03/11/20 05:54 Dose: 2 tab Documented by: Potassium Chloride (Klor-Con M20) 40 meq PO ONETIME ONE Stop: 03/11/20 11:23 Last Admin: 03/11/20 12:07 Dose: 40 meq Documented by: - Exam General: Alert, Oriented, Cooperative, No Acute Distress Lungs: Clear to Auscultation, Normal Respiratory Effort Cardiovascular: Regular Rate, Regular Rhythm, No Murmurs. No: Gallops GI/Abdominal Exam: Normal Bowel Sounds, Soft, Non-Tender Extremities: Normal Inspection, Normal Range of Motion, Non-Tender, No Pedal Edema Skin: Ecchymosis Neurological: No New Focal Deficit Psy/Mental Status: Alert, Normal Affect, Normal Mood Sepsis Event Note - Evaluation Sepsis Screening Result: No Definite Risk - Focused Exam Vital Signs: Vital Signs Temp Pulse Resp BP BP Pulse Ox 03/14/20 09:01 141/51 H 03/14/20 09:00 141/51 H 03/14/20 08:59 141/51 H 03/14/20 08:00 97.1 F 70 18 141/51 H 96 03/14/20 04:00 97.3 F 64 18 153/54 H 96 - Problem List & Annotations (1) Bacteremia SNOMED Code(s): 9292024 Code(s): R78.81 - BACTEREMIA Status: Acute Current Visit: Yes (2) Clostridioides difficile diarrhea SNOMED Code(s): 1740355586991 Code(s): A04.72 - ENTEROCOLITIS D/T CLOSTRIDIUM DIFFICILE, NOT SPCF RECUR Status: Acute Current Visit: Yes (3) Dizzinesses SNOMED Code(s): 899397377, 523748674 Code(s): R42 - DIZZINESS AND GIDDINESS Status: Acute Current Visit: Yes (4) Pneumonia SNOMED Code(s): 670162021 Code(s): J18.9 - PNEUMONIA, UNSPECIFIED ORGANISM Status: Acute Current Visit: Yes (5) UTI, Urinary tract infectious disease SNOMED Code(s): 79469597 Code(s): N39.0 - URINARY TRACT INFECTION, SITE NOT SPECIFIED Status: Acute Current Visit: Yes (6) GERD (gastroesophageal reflux disease) SNOMED Code(s): 297747866 Code(s): K21.9 - GASTRO-ESOPHAGEAL REFLUX DISEASE WITHOUT ESOPHAGITIS Status: Acute Current Visit: No Qualifiers: Esophagitis presence: without esophagitis Qualified Code(s): K21.9 - Gastro-esophageal reflux disease without esophagitis (7) Leukocytosis SNOMED Code(s): 003113651, 366914555 Code(s): D72.829 - ELEVATED WHITE BLOOD CELL COUNT, UNSPECIFIED Status: Acute Priority: High Current Visit: No Qualifiers: Leukocytosis type: bandemia Qualified Code(s): D72.825 - Bandemia (8) CAD (coronary artery disease) SNOMED Code(s): 75705617 Code(s): I25.10 - ATHSCL HEART DISEASE OF [place] CORONARY ARTERY W/O ANG PCTRS Status: Chronic Current Visit: No (9) COPD (chronic obstructive pulmonary disease) SNOMED Code(s): 29725056 Code(s): J44.9 - CHRONIC OBSTRUCTIVE PULMONARY DISEASE, UNSPECIFIED Status: Chronic Current Visit: No Qualifiers: COPD type: unspecified COPD Qualified Code(s): J44.9 - Chronic obstructive pulmonary disease, unspecified (10) Diabetes mellitus type 1, controlled, insulin dependent SNOMED Code(s): 82742049, 873255744 Code(s): E10.9 - TYPE 1 DIABETES MELLITUS WITHOUT COMPLICATIONS Status: Chronic Priority: High Current Visit: No (11) HTN (hypertension) SNOMED Code(s): 94757662 Code(s): I10 - ESSENTIAL (PRIMARY) HYPERTENSION Status: Chronic Current Visit: No Qualifiers: Hypertension type: essential hypertension Qualified Code(s): I10 - Essential (primary) hypertension - Problem List Review Problem List Initiated/Reviewed/Updated: Yes - My Orders Last 24 Hours: My Active Orders 03/14/20 08:21 Vancomycin [Vancocin 125 MG Capsule] 125 mg PO QID 03/14/20 09:27 UA RFX DIONY AND CULT IF INDIC [URIN] Routine - Plan Plan:: 64 yo female admitted for possible pneumonia and UTI. 1. Bacteremia: - Cotinues to have growth, repeat culutres pending. - Growing strep salivarius, 03/11 still pending growing gram + in clusters and chains. await DIONY. repeat on 03/13 all negative. - Urine culture growing staph aureus. - We will continue vancomycin, Rocephin and Azithromycin. - ECHO shows no signs of vegetation 2. CAP: - Day 4 of Azithromycin and Rocephin - negative for respiratory symptoms - Monitor 3. Diarrhea: - Cdiff positive antigen, negative toxin - Start vancomycin 125 mg QID PO - Monitor stools 4. DM Type 1 - Stable - Monitor BS with meals - Lantus and Novolog ordered. 5. COPD - Duonebs and continue all inhalers - Stable 6. CAD/HTN - Monitor, stable - Continue home medications VTE prophylaxis: heparin Dispo: 1-2 days pending culture results.
[2020-03-14] MEDS: cefTRIAXone 1 GM in Premix Bag 1 BAG IV SCH (14:08)
[2020-03-14] MEDS: Azithromycin 250 MG Tab PO SCH (14:11)
[2020-03-15] MEDS: Vancomycin 125 MG Cap PO SCH ×3 (00:08→11:17)
[2020-03-15] MEDS: TYLENOL WITH CODEINE PO PRN ×2 (04:57→10:11)
[2020-03-15] MEDS: Propranolol 20 MG Tab PO SCH (07:07)
[2020-03-15] MEDS: Heparin Sodium 5,000 Units/ML Vial SUBCUT SCH (07:10)
[2020-03-15] MEDS: Insulin Glargine,Human Rec. Analog 100 Units/ML 3 ML Pen SUBCUT SCH (07:13)
[2020-03-15] MEDS: Insulin Aspart 100 Units/ML 3 ML Pen SUBCUT SCH ×2 (07:17→11:23)
[2020-03-15 07:34] LABS: BLOOD UREA NITROGEN,BUN 5 mg/dL (7.0-18.0); CARBON DIOXIDE,CO2 23.1 mmol/L (21.0-32.0); CHLORIDE,CL 105 mmol/L (98-107); GLUCOSE RANDOM 272 mg/dL (74-106); POTASSIUM,K 4.1 mmol/L (3.5-5.1); SODIUM,NA 139 mmol/L (136-145)
[2020-03-15] MEDS: UMECLIDINIUM BROMIDE INH SCH (09:00)
[2020-03-15] MEDS: Losartan 50 MG Tab PO SCH (10:05)
[2020-03-15] MEDS: Pantoprazole 40 MG Tab.CR PO SCH (10:06)
[2020-03-15] MEDS: Ezetimibe 10 MG Tab PO SCH (10:06)
[2020-03-15] MEDS: Clopidogrel 75 MG Tab PO SCH (10:06)
[2020-03-15] MEDS: Isosorbide Mononitrate 30 MG Tab.ER PO SCH (10:06)
[2020-03-15] MEDS: amLODIPine 5 MG Tab PO SCH (10:07)
[2020-03-15 10:10] VITALS: BP 166/61
[2020-03-15 10:23] VITALS: PULSE 65
--- NOTE | 2020-03-15 11:11 | PCM.DCSUM1 ---
Discharge Summary - Discharge Data Discharge Date: 03/15/20 Discharge Disposition: Home, Self-Care 01 Condition: Good - Referral to Home Health Primary Care Physician: Oskar Verma MD - Discharge Diagnosis/Problem(s) (1) Bacteremia SNOMED Code(s): 8300278 ICD Code: R78.81 - BACTEREMIA Status: Acute (2) Clostridioides difficile diarrhea SNOMED Code(s): 5030064206403 ICD Code: A04.72 - ENTEROCOLITIS D/T CLOSTRIDIUM DIFFICILE, NOT SPCF RECUR Status: Acute (3) Dizzinesses SNOMED Code(s): 712751762, 290426094 ICD Code: R42 - DIZZINESS AND GIDDINESS Status: Acute (4) Pneumonia SNOMED Code(s): 580696906 ICD Code: J18.9 - PNEUMONIA, UNSPECIFIED ORGANISM Status: Acute (5) UTI, Urinary tract infectious disease SNOMED Code(s): 53590311 ICD Code: N39.0 - URINARY TRACT INFECTION, SITE NOT SPECIFIED Status: Acute (6) GERD (gastroesophageal reflux disease) SNOMED Code(s): 572391116 ICD Code: K21.9 - GASTRO-ESOPHAGEAL REFLUX DISEASE WITHOUT ESOPHAGITIS Status: Acute Qualifiers: Esophagitis presence: without esophagitis Qualified Code(s): K21.9 - Gastro-esophageal reflux disease without esophagitis (7) Leukocytosis SNOMED Code(s): 539118644, 524671492 ICD Code: D72.829 - ELEVATED WHITE BLOOD CELL COUNT, UNSPECIFIED Status: Acute Priority: High Qualifiers: Leukocytosis type: bandemia Qualified Code(s): D72.825 - Bandemia (8) CAD (coronary artery disease) SNOMED Code(s): 28324578 ICD Code: I25.10 - ATHSCL HEART DISEASE OF [place] CORONARY ARTERY W/O ANG PCTRS Status: Chronic (9) COPD (chronic obstructive pulmonary disease) SNOMED Code(s): 63815604 ICD Code: J44.9 - CHRONIC OBSTRUCTIVE PULMONARY DISEASE, UNSPECIFIED Status: Chronic Qualifiers: COPD type: unspecified COPD Qualified Code(s): J44.9 - Chronic obstructive pulmonary disease, unspecified (10) Diabetes mellitus type 1, controlled, insulin dependent SNOMED Code(s): 82494741, 607650106 ICD Code: E10.9 - TYPE 1 DIABETES MELLITUS WITHOUT COMPLICATIONS Status: Chronic Priority: High (11) HTN (hypertension) SNOMED Code(s): 52775042 ICD Code: I10 - ESSENTIAL (PRIMARY) HYPERTENSION Status: Chronic Qualifiers: Hypertension type: essential hypertension Qualified Code(s): I10 - Essential (primary) hypertension (12) Gait instability SNOMED Code(s): 58316187 ICD Code: R26.81 - UNSTEADINESS ON FEET Status: Acute - Patient Summary/Data Consults: Consultations 03/10/20 14:32 PT Evaluation and Treatment [CONS] Routine Hospital Course: Admitting Diagnoses: Dizziness CAP, RLL Discharge Diagnoses: Dizziness CAP, RLL- treated UTI- treated Cdiff diarrhea Zakiya is a 64-year-old female that was admitted for dizziness and right lower lobe community-acquired pneumonia. She was treated with azithromycin and Rocephin. No severe respiratory symptoms were noted. Dyspnea was at baseline per COPD history. During her stay bacteremia was noted and repeat cultures were obtained. She was started on vancomycin IV due to the possibility of staph bacteremia. Repeat blood cultures continue to show possible contaminants as patient is a very hard poke. Repeat blood cultures from 03/13 returned completely negative. I did discuss with microbiology they felt that the previous cultures were contaminated samples, as one was noted to grow out staph salavarious and the other currently is not growing any further after being replated 3 times. She started to have some diarrhea during her stay C. difficile was checked which came back positive for C. difficile antigen for the PCR testing revealed positive toxin she was started on vancomycin 125 mg 4 times daily leukocytosis did improve once vancomycin was started. Today she is feeling much improved continues to have some dizziness but is getting better as she is up ambulating more more. She will be discharged home with a walker and physical therapy for evaluation as outpatient. She will continue vancomycin p.o. 4 times a day for another 9 days. She was fully treated for her pneumonia as well as UTI during her stay. Echo was obtained during stay to rule out any vegetations no concerns noted at this time and no high suspicion of endocarditis. She will have follow-up with PCP as an outpatient. She is to return to the ER or clinic if concerns should arise. - Patient Instructions Diet: Diabetic Diet Activity: As Tolerated, No Strenuous Activities Driving: Do Not Drive Showering/Bathing: May Shower Notify Provider of: Fever, Increased Pain, Swelling and Redness, Drainage, Nausea and/or Vomiting - Discharge Plan *PRESCRIPTION DRUG MONITORING PROGRAM REVIEWED*: Not Applicable *COPY OF PRESCRIPTION DRUG MONITORING REPORT IN PATIENT ESTEPHANIA: Not Applicable Prescriptions/Med Rec: Vancomycin [Vancocin 125 MG Capsule] 125 mg PO QID #36 cap Home Medications: Home Meds Acetaminophen with Codeine [Acetaminophen-Cod #4] 2 tab PO Q4HR PRN 01/18/15 [History] Propranolol HCl 10 mg PO TID 01/18/15 [History] Sodium Bicarbonate 650 mg PO BIDMEALS 01/18/15 [History] amLODIPine [Norvasc] 5 mg PO DAILY 01/18/15 [History] Clopidogrel Bisulfate [Clopidogrel] 75 mg PO DAILY 01/21/18 [History] Pantoprazole [ProTONIX] 40 mg PO DAILY 01/21/18 [History] carisoprodoL [Carisoprodol] 350 mg PO TID PRN 01/21/18 [History] ondansetron HCL [Zofran] 4 mg PO TID PRN 01/21/18 [History] Albuterol [Ventolin HFA] 2 puff INH Q4H PRN 12/12/18 [History] Carboxymethylcellulose Sodium [Refresh Tears] 1 drop EYEBOTH ASDIRECTED PRN 12/12/18 [History] Ezetimibe 10 mg PO DAILY 12/12/18 [History] Insulin Glargine,Hum.Rec.Anlog [Basaglar Kwikpen U-100] 15 units SUBCUT BEDTIME 12/12/18 [History] Isosorbide Mononitrate [Imdur] 30 mg PO DAILY 12/12/18 [History] Nitroglycerin 0.4 mg SL .EVERY 5 MINUTES PRN MDD 3 TABLETS 12/12/18 [History] Aspirin 81 mg PO DAILY 12/14/18 [History] Cholecalciferol (Vitamin D3) [Vitamin D3] 2,000 units PO DAILY 01/15/20 [History] Glucagon [Baqsimi] 1 spray UMM ASDIRECTED PRN 01/15/20 [History] Insulin Aspart (Niacinamide) [Fiasp 100 Unit/ml Flextouch] 4 - 5 unit SUBCUT TIDMEALS 01/15/20 [History] Losartan Potassium 25 mg PO DAILY 01/15/20 [History] Alendronate Sodium 35 mg PO WEEKLY 03/12/20 [History] Non-Formulary Medication [NF Drug] 1 inhalation PO BID 03/12/20 [History] Vancomycin [Vancocin 125 MG Capsule] 125 mg PO QID #36 cap 03/15/20 [Rx] Oxygen Therapy Mode: Room Air Patient Handouts: Dizziness, [id number], Community-Acquired Pneumonia, Adult, [id number], Vancomycin capsules Referrals: Oskar Verma MD [Primary Care Provider] - 03/21/20 8:30 am (Please arrive 15 minutes early with your identification, insurance and your own facemask.) - Discharge Summary/Plan Comment DC Time >30 min.: No - Patient Data Vitals - Most Recent: Last Vital Signs Temp 100.2 F 03/15/20 10:18 Pulse 65 03/15/20 10:18 Resp 18 03/15/20 10:18 BP 166/61 H 03/15/20 10:18 Pulse Ox 94 L 03/15/20 10:18 Weight - Most Recent: 45.586 kg I&O - Last 24 hours: Intake & Output 03/14/20 03/15/20 03/15/20 22:59 06:59 14:59 Intake Total 1000 400 Output Total 300 500 Balance 700 -100 Lab Results - Last 24 hrs: Laboratory Results - last 24 hr 03/14/20 03/14/20 03/14/20 Range/Units 07:03 12:25 12:40 WBC (4.0-11.0) K/uL RBC (4.30-5.90) M/uL Hgb (12.0-16.0) g/dL Hct (36.0-46.0) % MCV (80.0-98.0) fL MCH (27.0-32.0) pg MCHC (31.0-37.0) g/dL RDW Std Deviation (28.0-62.0) fl RDW Coeff of Hesham (11.0-15.0) % Plt Count (150-400) K/uL MPV (7.40-12.00) fL Neut % (Auto) (48.0-80.0) % Lymph % (Auto) (16.0-40.0) % Meagher % (Auto) (0.0-15.0) % Eos % (Auto) (0.0-7.0) % Baso % (Auto) (0.0-1.5) % Neut # (Auto) (1.4-5.7) K/uL Lymph # (Auto) (0.6-2.4) K/uL Meagher # (Auto) (0.0-0.8) K/uL Eos # (Auto) (0.0-0.7) K/uL Baso # (Auto) (0.0-0.1) K/uL Nucleated RBC % /100WBC Nucleated RBCs # K/uL Sodium (136-145) mmol/L Potassium (3.5-5.1) mmol/L Chloride (98-107) mmol/L Carbon Dioxide (21.0-32.0) mmol/L BUN (7.0-18.0) mg/dL Creatinine (0.6-1.0) mg/dL Est Cr Clr Drug Dosing mL/min Estimated GFR (MDRD) ml/min Glucose (74-106) mg/dL POC Glucose 304 H 258 H (60-110) mg/dL Calcium (8.5-10.1) mg/dL Urine Color YELLOW Urine Appearance SLT CLOUDY Urine pH 6.0 (5.0-8.0) Ur Specific [place] 1.020 (1.001-1.035) Urine Protein NEGATIVE (NEGATIVE) mg/dL Urine Glucose (UA) 100 H (NEGATIVE) mg/dL Urine Ketones 40 H (NEGATIVE) mg/dL Urine Occult Blood NEGATIVE (NEGATIVE) Urine Nitrite NEGATIVE (NEGATIVE) Urine Bilirubin MODERATE H (NEGATIVE) Urine Ictotest NEGATIVE Urine Urobilinogen 0.2 (<2.0) EU/dL Ur Leukocyte Esterase SMALL H (NEGATIVE) Urine RBC 0-2 (0-2/HPF) Urine WBC 5-10 (0-5/HPF) Ur Epithelial Cells MODERATE (NONE-FEW) Urine Bacteria FEW (NEGATIVE) Urine Yeast MANY 03/14/20 03/15/20 03/15/20 Range/Units 17:21 06:15 06:39 WBC 9.74 (4.0-11.0) K/uL RBC 3.46 L (4.30-5.90) M/uL Hgb 10.2 L (12.0-16.0) g/dL Hct 31.4 L (36.0-46.0) % MCV 90.8 (80.0-98.0) fL MCH 29.5 (27.0-32.0) pg MCHC 32.5 (31.0-37.0) g/dL RDW Std Deviation 58.3 (28.0-62.0) fl RDW Coeff of Hesham 18 H (11.0-15.0) % Plt Count 278 (150-400) K/uL MPV 10.60 (7.40-12.00) fL Neut % (Auto) 73.2 (48.0-80.0) % Lymph % (Auto) 12.5 L (16.0-40.0) % Meagher % (Auto) 12.1 (0.0-15.0) % Eos % (Auto) 1.5 (0.0-7.0) % Baso % (Auto) 0.7 (0.0-1.5) % Neut # (Auto) 7.1 H (1.4-5.7) K/uL Lymph # (Auto) 1.2 (0.6-2.4) K/uL Meagher # (Auto) 1.2 H (0.0-0.8) K/uL Eos # (Auto) 0.2 (0.0-0.7) K/uL Baso # (Auto) 0.1 (0.0-0.1) K/uL Nucleated RBC % 0.0 /100WBC Nucleated RBCs # 0 K/uL Sodium (136-145) mmol/L Potassium (3.5-5.1) mmol/L Chloride (98-107) mmol/L Carbon Dioxide (21.0-32.0) mmol/L BUN (7.0-18.0) mg/dL Creatinine (0.6-1.0) mg/dL Est Cr Clr Drug Dosing mL/min Estimated GFR (MDRD) ml/min Glucose (74-106) mg/dL POC Glucose 203 H 254 H (60-110) mg/dL Calcium (8.5-10.1) mg/dL Urine Color Urine Appearance Urine pH (5.0-8.0) Ur Specific [place] (1.001-1.035) Urine Protein (NEGATIVE) mg/dL Urine Glucose (UA) (NEGATIVE) mg/dL Urine Ketones (NEGATIVE) mg/dL Urine Occult Blood (NEGATIVE) Urine Nitrite (NEGATIVE) Urine Bilirubin (NEGATIVE) Urine Ictotest Urine Urobilinogen (<2.0) EU/dL Ur Leukocyte Esterase (NEGATIVE) Urine RBC (0-2/HPF) Urine WBC (0-5/HPF) Ur Epithelial Cells (NONE-FEW) Urine Bacteria (NEGATIVE) Urine Yeast 03/15/20 Range/Units 06:39 WBC (4.0-11.0) K/uL RBC (4.30-5.90) M/uL Hgb (12.0-16.0) g/dL Hct (36.0-46.0) % MCV (80.0-98.0) fL MCH (27.0-32.0) pg MCHC (31.0-37.0) g/dL RDW Std Deviation (28.0-62.0) fl RDW Coeff of Hesham (11.0-15.0) % Plt Count (150-400) K/uL MPV (7.40-12.00) fL Neut % (Auto) (48.0-80.0) % Lymph % (Auto) (16.0-40.0) % Meagher % (Auto) (0.0-15.0) % Eos % (Auto) (0.0-7.0) % Baso % (Auto) (0.0-1.5) % Neut # (Auto) (1.4-5.7) K/uL Lymph # (Auto) (0.6-2.4) K/uL [place]agher # (Auto) (0.0-0.8) K/uL Eos # (Auto) (0.0-0.7) K/uL Baso # (Auto) (0.0-0.1) K/uL Nucleated RBC % /100WBC Nucleated RBCs # K/uL Sodium 139 (136-145) mmol/L Potassium 4.1 (3.5-5.1) mmol/L Chloride 105 (98-107) mmol/L Carbon Dioxide 23.1 (21.0-32.0) mmol/L BUN 5 L (7.0-18.0) mg/dL Creatinine 0.7 (0.6-1.0) mg/dL Est Cr Clr Drug Dosing 59.20 mL/min Estimated GFR (MDRD) > 60.0 ml/min Glucose 272 H (74-106) mg/dL POC Glucose (60-110) mg/dL Calcium 7.1 L (8.5-10.1) mg/dL Urine Color Urine Appearance Urine pH (5.0-8.0) Ur Specific [place] (1.001-1.035) Urine Protein (NEGATIVE) mg/dL Urine Glucose (UA) (NEGATIVE) mg/dL Urine Ketones (NEGATIVE) mg/dL Urine Occult Blood (NEGATIVE) Urine Nitrite (NEGATIVE) Urine Bilirubin (NEGATIVE) Urine Ictotest Urine Urobilinogen (<2.0) EU/dL Ur Leukocyte Esterase (NEGATIVE) Urine RBC (0-2/HPF) Urine WBC (0-5/HPF) Ur Epithelial Cells (NONE-FEW) Urine Bacteria (NEGATIVE) Urine Yeast BRENDAN Results - Last 24 hrs: Microbiology 03/13/20 14:40 Clostridioides difficile (PCR) - Final Stool / Feces 03/10/20 09:11 Aerobic Blood Culture - Final Blood - Venous NO GROWTH AFTER 5 DAYS Anaerobic Blood Culture - Final NO GROWTH AFTER 5 DAYS 03/11/20 12:16 Aerobic Blood Culture - Preliminary Blood - Venous - Lab Draw NO GROWTH AFTER 3 DAYS Anaerobic Blood Culture - Final 03/13/20 10:51 Aerobic Blood Culture - Preliminary Blood - Venous - Lab Draw NO GROWTH AFTER 1 DAY Anaerobic Blood Culture - Preliminary NO GROWTH AFTER 1 DAY 03/13/20 10:51 Aerobic Blood Culture - Preliminary Blood - Venous NO GROWTH AFTER 1 DAY Anaerobic Blood Culture - Preliminary NO GROWTH AFTER 1 DAY 03/10/20 09:20 Aerobic Blood Culture - Final Blood - Venous - Lab Draw Streptococcus Salivarius#2 Anaerobic Blood Culture - Final 03/11/20 11:55 Aerobic Blood Culture - Preliminary Blood - Venous Anaerobic Blood Culture - Final Med Orders - Current: Current Medications Amlodipine Besylate (Norvasc) 5 mg PO DAILY [facility] Last Admin: 03/15/20 10:07 Dose: 5 mg Documented by: Carisoprodol (Soma) 350 mg PO TID PRN PRN Reason: Muscle Spasm Last Admin: 03/14/20 22:52 Dose: 350 mg Documented by: Clopidogrel Bisulfate (Plavix) 75 mg PO DAILY [facility] Last Admin: 03/15/20 10:06 Dose: 75 mg Documented by: Ezetimibe (Zetia) 10 mg PO DAILY [facility] Last Admin: 03/15/20 10:06 Dose: 10 mg Documented by: Heparin Sodium (Porcine) (Heparin Sodium) 5,000 units SUBCUT Q8H [facility] Last Admin: 03/15/20 07:10 Dose: 5,000 units Documented by: Insulin Aspart (Novolog) 0 unit SUBCUT TIDAC [facility]; Protocol Last Admin: 03/15/20 07:17 Dose: 3 units Documented by: Insulin Glargine (Lantus Solostar) 5 units SUBCUT ACBREAKFAST [facility] Last Admin: 03/15/20 07:13 Dose: 5 units Documented by: Isosorbide Mononitrate (Imdur) 30 mg PO DAILY [facility] Last Admin: 03/15/20 10:06 Dose: 30 mg Documented by: Losartan Potassium (Cozaar) 25 mg PO DAILY [facility] Last Admin: 03/15/20 10:05 Dose: 25 mg Documented by: Ondansetron HCl (Zofran) 4 mg PO TID PRN PRN Reason: Nausea Pantoprazole Sodium (Protonix) 40 mg PO DAILY [facility] Last Admin: 03/15/20 10:06 Dose: 40 mg Documented by: Umeclidinium [place] [Incruse Ellipta*] 62.5 Mcg/Inh 1 each INH DAILY [facility] Last Admin: 03/14/20 09:02 Dose: 1 each Documented by: Tylenol With Codeine (#4 *Pt Own Med*) 2 each PO Q4H PRN PRN Reason: Pain Last Admin: 03/15/20 10:11 Dose: 2 each Documented by: Propranolol HCl (Inderal) 10 mg PO TID [facility] Last Admin: 03/15/20 07:07 Dose: 10 mg Documented by: Sodium Chloride (Saline Flush) 10 ml FLUSH ASDIRECTED PRN PRN Reason: Keep Vein Open Last Admin: 03/10/20 07:27 Dose: 10 ml Documented by: Sodium Chloride (Saline Flush) 2.5 ml FLUSH ASDIRECTED PRN PRN Reason: Keep Vein Open Last Admin: 03/10/20 07:27 Dose: 2.5 ml Documented by: Sodium Chloride (Saline Flush) 10 ml FLUSH ASDIRECTED PRN PRN Reason: Keep Vein Open Last Admin: 03/10/20 09:09 Dose: 10 ml Documented by: Sodium Chloride (Saline Flush) 2.5 ml FLUSH ASDIRECTED PRN PRN Reason: Keep Vein Open Last Admin: 03/10/20 09:09 Dose: 2.5 ml Documented by: Vancomycin HCl (Pharmacy To Dose - Vancomycin) 0 dose .XX ASDIRECTED [facility] Vancomycin HCl (Vancocin 125 Mg Capsule) 125 mg PO QID [facility] Last Admin: 03/15/20 07:07 Dose: 125 mg Documented by: Discontinued Medications Aspirin (Aspirin) 81 mg PO DAILY [facility] Last Admin: 03/11/20 08:53 Dose: 81 mg Documented by: Azithromycin (Zithromax) 500 mg PO Q24H [facility] Last Admin: 03/14/20 14:11 Dose: 500 mg Documented by: Calcium Gluconate (Calcium Gluconate) 1 gm IV ONETIME ONE Stop: 03/11/20 17:28 Last Admin: 03/11/20 18:24 Dose: 1 gm Documented by: Lactated Ringer's (Ringers, Lactated) 1,000 mls @ 999 mls/hr IV .BOLUS ONE Stop: 03/10/20 09:34 Last Admin: 03/10/20 09:08 Dose: 999 mls/hr Documented by: Ceftriaxone Sodium/Dextrose 1 (gm/ Premix) 50 mls @ 100 mls/hr IV ONETIME ONE Stop: 03/10/20 09:56 Last Admin: 03/10/20 11:02 Dose: 100 mls/hr Documented by: Azithromycin 500 mg/ Sodium (Chloride) 250 mls @ 250 mls/hr IV ONETIME [facility] Last Admin: 03/10/20 11:03 Dose: 250 mls/hr Documented by: Ceftriaxone Sodium/Dextrose 1 (gm/ Premix) 50 mls @ 100 mls/hr IV Q24H [facility] Last Admin: 03/14/20 14:08 Dose: 100 mls/hr Documented by: Sodium Chloride (Normal Saline) 1,000 mls @ 125 mls/hr IV ASDIRECTED [facility] Last Admin: 03/10/20 23:02 Dose: 125 mls/hr Documented by: Vancomycin HCl 1.25 gm/ Sodium (Chloride) 250 mls @ 166.667 mls/hr IV ONETIME ONE Stop: 03/11/20 00:29 Last Admin: 03/10/20 22:53 Dose: 166.667 mls/hr Documented by: Vancomycin HCl 750 mg/ Sodium (Chloride) 250 mls @ 250 mls/hr IV Q12H MIKHAIL Last Admin: 03/15/20 00:06 Dose: 250 mls/hr Documented by: Calcium Gluconate 1 gm/ Sodium (Chloride) 60 mls @ 60 mls/hr IV NOW ONE Stop: 03/12/20 15:29 Last Admin: 03/12/20 16:03 Dose: 60 mls/hr Documented by: Insulin Glargine (Lantus Solostar) 15 units SUBCUT ACBREAKFAST [facility] Last Admin: 03/11/20 08:42 Dose: Not Given Documented by: Iopamidol (Isovue Multipack-370 (76%)) 75 ml IVPUSH ONETIME STA Stop: 03/12/20 16:10 Last Admin: 03/12/20 16:09 Dose: 75 ml Documented by: Tylenol With Codeine (#4 *Pt Own Med*) 2 tab PO Q4H PRN PRN Reason: Pain Last Admin: 03/11/20 05:54 Dose: 2 tab Documented by: Potassium Chloride (Klor-Con M20) 40 meq PO ONETIME ONE Stop: 03/11/20 11:23 Last Admin: 03/11/20 12:07 Dose: 40 meq Documented by:
[2020-03-15] MEDS: Sodium Chloride 0.9% 10 ML Syringe FLUSH PRN (11:18)
--- NOTE | 2020-03-18 14:12 | ECHO ---
EXAM DATE: 03/10/20 PATIENT'S AGE: 64 The ECHO report has been scanned into [facility] and can be seen in this patient's EMR (Electronic Medical Record) under the REPORTS section. The report has also been scanned into PACS. THIERRY
== END 2020-03-15 12:45 | disposition home or self-care (01) | DRG 689 ==
LOC: MW.ED 07:06 → MW.MS 09:44 → UNDOADMIN 11:27 → UNDODISIN 03-15 12:45
PROVIDERS: ADMIT Internal Medicine; ATTEND Internal Medicine
DX: N39.0 Urinary tract infection, site not specified (principal); J18.9 Pneumonia, unspecified organism; R42 Dizziness and giddiness; H54.7 Unspecified visual loss; A04.72 Enterocolitis due to Clostridium difficile, not specified as recurrent; K21.9 Gastro-esophageal reflux disease without esophagitis; D72.829 Elevated white blood cell count, unspecified; I25.10 Atherosclerotic heart disease of native coronary artery without angina pectoris; J44.9 Chronic obstructive pulmonary disease, unspecified; I10 Essential (primary) hypertension; R26.81 Unsteadiness on feet; G89.29 Other chronic pain; M54.9 Dorsalgia, unspecified; M19.90 Unspecified osteoarthritis, unspecified site; E10.40 Type 1 diabetes mellitus with diabetic neuropathy, unspecified; E10.43 Type 1 diabetes mellitus with diabetic autonomic (poly)neuropathy; K31.84 Gastroparesis; E10.42 Type 1 diabetes mellitus with diabetic polyneuropathy; E10.620 Type 1 diabetes mellitus with diabetic dermatitis; M85.80 Other specified disorders of bone density and structure, unspecified site; Z95.5 Presence of coronary angioplasty implant and graft; Z98.890 Other specified postprocedural states; Z90.710 Acquired absence of both cervix and uterus; Z98.49 Cataract extraction status, unspecified eye; Z79.02 Long term (current) use of antithrombotics/antiplatelets; Z79.82 Long term (current) use of aspirin; Z79.4 Long term (current) use of insulin; Z20.828 Contact with and (suspected) exposure to other viral communicable diseases; Z79.899 Other long term (current) drug therapy; I25.2 Old myocardial infarction; Z87.11 Personal history of peptic ulcer disease; Z90.49 Acquired absence of other specified parts of digestive tract
CPT/HCPCS: 36415; 70450; 71045; 74176; 80053; 81001; 83605; 83735; 84100; 84484; 85025; 87040 ×2; 87077; 87086; 87186 ×2; 93005; 96361; 96365; 96368; 99285; J0456; J0696; J7050; J7120; U0002; 71270; 71270-26; 80048; 80202; 82330; 82962; 87324; 87493; 93306; 97110-GP; 97112-GP; 97161-GP; 97530-GP; 99221; 99231; 99238; 99284; A9270-GY; J0610; J1644; J1815-GY; J3370; J7030; Q9967

== ENCOUNTER 2020-06-11 14:37 | Inpatient (IN) | payer MEDICARE, MEDICAID ==
[2020-06-11] MEDS ORDERED: Ondansetron 4 MG/2 ML SDV IVPUSH ONE (16:09)
[2020-06-11] MEDS ORDERED: fentaNYL 100 MCG/2 ML SDV IVPUSH ONE (16:09)
--- NOTE | 2020-06-11 16:09 | EDM.PDOC ---
ED HPI GENERAL MEDICAL PROBLEM - General Chief Complaint: Abdominal Pain Stated Complaint: REFFERAL Time Seen by Provider: 06/11/20 14:54 Source of Information: Reports: Patient History Limitations: Reports: No Limitations - History of Present Illness INITIAL COMMENTS - FREE TEXT/NARRATIVE: Presents reporting abdominal pain. She reports a 1 month history of abdominal b loating, pain, lethargy, tiredness, poor memory and nausea. She states that last week she "vomited up everything" but has had no vomiting since. She has had chronic diarrhea for many years after a partial gastric resection. She has a medical history of peripheral neuropathy, diabetic skin ulcers of the lower legs and feet, gastric ulcers, COPD, diabetes type 2, hypertension, coronary artery disease and a [id number] smoking history. She was at the dermatology clinic 05/15/2020 for diabetic skin ulcers and a complaint of "hard skin". A skin biopsy and full rheumatologic work-up was negative. Today she returned for a recheck. While there, she complained of abdominal pain and nausea and was noted to have some abdominal distention. Dermatology had a concern for worsening of the skin thickening and an infectious skin ulcer on the left heel. Today the patient states that her abdomen and perineum is tight and swollen and that her left leg and foot hurt. Right Lower Leg Pain Score (Numeric/FACES): 8 - Related Data Allergies Allergy/AdvReac Type Severity Reaction Status Date / Time No Known Allergies Allergy Verified 06/11/20 14:48 Home Meds: Home Meds Acetaminophen with Codeine [Acetaminophen-Cod #4] 2 tab PO Q4HR PRN 01/18/15 [History] Propranolol HCl 10 mg PO TID 01/18/15 [History] Sodium Bicarbonate 650 mg PO BIDMEALS 01/18/15 [History] amLODIPine [Norvasc] 5 mg PO DAILY 01/18/15 [History] Clopidogrel Bisulfate [Clopidogrel] 75 mg PO DAILY 01/21/18 [History] Pantoprazole [ProTONIX] 40 mg PO DAILY 01/21/18 [History] carisoprodoL [Carisoprodol] 350 mg PO TID PRN 01/21/18 [History] ondansetron HCL [Zofran] 4 mg PO TID PRN 01/21/18 [History] Albuterol [Ventolin HFA] 2 puff INH Q4H PRN 12/12/18 [History] Carboxymethylcellulose Sodium [Refresh Tears] 1 drop EYEBOTH ASDIRECTED PRN 12/12/18 [History] Ezetimibe 10 mg PO DAILY 12/12/18 [History] Insulin Glargine,Hum.Rec.Anlog [Basaglar Kwikpen U-100] 15 units SUBCUT BEDTIME 12/12/18 [History] Isosorbide Mononitrate [Imdur] 30 mg PO DAILY 12/12/18 [History] Nitroglycerin 0.4 mg SL .EVERY 5 MINUTES PRN MDD 3 TABLETS 12/12/18 [History] Aspirin 81 mg PO DAILY 12/14/18 [History] Cholecalciferol (Vitamin D3) [Vitamin D3] 2,000 units PO DAILY 01/15/20 [History] Glucagon [Baqsimi] 1 spray UMM ASDIRECTED PRN 01/15/20 [History] Insulin Aspart (Niacinamide) [Fiasp 100 Unit/ml Flextouch] 4 - 5 unit SUBCUT TIDMEALS 01/15/20 [History] Losartan Potassium 25 mg PO DAILY 01/15/20 [History] Alendronate Sodium 35 mg PO WEEKLY 03/12/20 [History] Non-Formulary Medication [NF Drug] 1 inhalation PO BID 03/12/20 [History] Vancomycin [Vancocin 125 MG Capsule] 125 mg PO QID #36 cap 03/15/20 [Rx] Past Medical History HEENT History: Reports: Other (See Below) Other HEENT History: wears reading glasses, upper denture Cardiovascular History: Reports: Hypertension, VT, Stents Other Cardiovascular History: Myocardial infarction 2013 Respiratory History: Reports: COPD Gastrointestinal History: Reports: Chronic Diarrhea, GERD, PUD Other Gastrointestinal History: Gastroparesis, hx gastric ulcers Genitourinary History: Reports: None VEIN PUMPER History: Reports: 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 History: Reports: Back Pain, Chronic, Fracture, Osteoarthritis Other 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 History: hx fx left arm Neurological History: Reports: Neuropathy, Diabetic Other Neuro History: essential tremors Psychiatric History: Reports: None Endocrine/Metabolic History: Reports: Diabetes, Type I, Osteopenia Hematologic History: Reports: None Immunologic History: Reports: None Oncologic (Cancer) History: Reports: None Dermatologic History: Reports: Other (See Below) Other Dermatologic History: necrobiosis lipoidica - Infectious Disease History Infectious Disease History: Reports: None - Past Surgical History Head Surgeries/Procedures: Reports: None HEENT Surgical History: Reports: Cataract Surgery Cardiovascular Surgical History: Reports: Coronary Artery Stent, Other (See Below) Other Cardiovascular Surgeries/Procedures: stents x 2 Respiratory Surgical History: Reports: None GI Surgical History: Reports: Appendectomy, Cholecystectomy, Colonoscopy, EGD, Other (See Below) Other GI Surgeries/Procedures: partial gastrectomy, ERCP with insertion of TUbe into bile/pancreatic dust Female Surgical History: Reports: Section, Hysterectomy, Tubal Ligation Endocrine Surgical History: Reports: None Neurological Surgical History: Reports: None 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 Surgical History: Reports: Carpal Tunnel, Other (See Below) Other 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 Surgeries/Procedures:: surgical tx for fx left humerous surgery Oncologic Surgical History: Reports: None Dermatological Surgical History: Reports: Skin Graft Social & Family History - Family History Family Medical History: No Pertinent Family History - Tobacco Use Tobacco Use Status *Q: Former Tobacco User Used Tobacco, but Quit: Yes Month/Year Tobacco Last Used: 05/2017 - Caffeine Use Caffeine Use: Reports: None Caffeine Use Comment: 1 cup of coffee every morning. 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 ED EXAM, GI/ABD - Physical Exam Exam: See Below Exam Limited By: No Limitations General Appearance: Alert, No Apparent Distress Ears: Normal External Exam Nose: Normal Inspection Throat/Mouth: Normal Inspection Head: Atraumatic, Normocephalic Neck: Normal Inspection Respiratory/Chest: No Respiratory Distress, Lungs Clear, Normal Breath Sounds Cardiovascular: Normal Peripheral Pulses, Regular Rate, Rhythm, Other (Generalized edema, anasarka ) GI/Abdominal Exam: Distended, Other (Firm, diffuse tenderness, anasarca particularly of pelvis/perineum) Rectal (Female) Exam: No: Hemorrhoids, Perirectal Abscess, Rectal Fissure Back Exam: Normal Inspection Neurological: Alert, Oriented, Normal Cognition, Other (peripheral neuropathy with elevated pain sensation to legs and feet) Psychiatric: Normal Affect, Normal Mood Skin Exam: Warm, Dry, Other (Skin tight, thin, firm. Thighs numerous skin graft scars. Lower legs numerous large white scars. Scant pitting edema ankles and forefeet. Left heel 3.5 x 2 cm shallow, dry ulcer with thin, dark gold eshcar. Left second toe over DIP joint 1cm round, dry, caloused ulcer. Right heel 1cm round skin excoriation, dry. 0.5-1 cm around heel ulcers [place] well. 1cm round superficial, dry, erythematous open area on sacrum.) Lymphatic: No Adenopathy Course - Vital Signs Last Recorded V/S: Last Vital Signs Temp 36.5 C 06/11/20 14:52 Pulse 67 06/11/20 17:22 Resp 18 06/11/20 16:59 BP 147/63 H 06/11/20 17:22 Pulse Ox 98 06/11/20 16:59 - Orders/Labs/Meds Orders: Active Orders 24 hr Category Date Time Status Silveira Catheter Insertion [Insert Urinary Catheter] [OM. Care 06/11/20 18:15 Ordered PC] Q24H Urinary Catheter Assessment [RC] ASDIRECTED Care 06/11/20 18:05 Active CULTURE URINE [RM] Stat Lab 06/11/20 18:24 Received Labs: Laboratory Tests 06/11/20 06/11/20 06/11/20 Range/Units 15:30 15:30 15:30 WBC 15.30 H (4.0-11.0) K/uL RBC 3.69 L (4.30-5.90) M/uL Hgb 11.3 L (12.0-16.0) g/dL Hct 34.7 L (36.0-46.0) % MCV 94.0 (80.0-98.0) fL MCH 30.6 (27.0-32.0) pg MCHC 32.6 (31.0-37.0) g/dL RDW Std Deviation 55.4 (28.0-62.0) fl RDW Coeff of [place]es[place] 16 H (11.0-15.0) % Plt Count 397 (150-400) K/uL MPV 10.00 (7.40-12.00) fL Neut % (Auto) 75.8 (48.0-80.0) % Lymph % (Auto) 13.9 L (16.0-40.0) % [place] % (Auto) 9.8 (0.0-15.0) % Eos % (Auto) 0.3 (0.0-7.0) % Baso % (Auto) 0.2 (0.0-1.5) % Neut # (Auto) 11.6 H (1.4-5.7) K/uL Lymph # (Auto) 2.1 (0.6-2.4) K/uL [place] # (Auto) 1.5 H (0.0-0.8) K/uL Eos # (Auto) 0.0 (0.0-0.7) K/uL Baso # (Auto) 0.0 (0.0-0.1) K/uL Nucleated RBC % 0.0 /100WBC Nucleated RBCs # 0 K/uL INR Sodium 142 (136-145) mmol/L Potassium 4.1 (3.5-5.1) mmol/L Chloride 104 (98-107) mmol/L Carbon Dioxide 32.3 H (21.0-32.0) mmol/L BUN 13 (7.0-18.0) mg/dL Creatinine 1.0 (0.6-1.0) mg/dL Est Cr Clr Drug Dosing 39.88 mL/min Estimated GFR (MDRD) 55.8 ml/min Glucose 132 H (74-106) mg/dL Calcium 7.7 L (8.5-10.1) mg/dL Phosphorus (2.6-4.7) mg/dL Magnesium (1.8-2.4) mg/dL Total Bilirubin 0.5 (0.2-1.0) mg/dL AST 28 (15-37) IU/L ALT 33 (14-63) IU/L Alkaline Phosphatase 174 H (46-116) U/L Ammonia (19-54) ug/dL B-Natriuretic Peptide (<100) PG/ML Total Protein 5.2 L (6.4-8.2) g/dL Albumin 1.6 L (3.4-5.0) g/dL Globulin 3.6 (2.6-4.0) g/dL Albumin/Globulin Ratio 0.4 L (0.9-1.6) Amylase 11 L (25-115) U/L Lipase 17 L (73-393) U/L TSH 3rd Generation (0.36-3.74) uIU/mL Urine Color Urine Appearance Urine pH (5.0-8.0) Ur Specific [place] (1.001-1.035) Urine Protein (NEGATIVE) mg/dL Urine Glucose (UA) (NEGATIVE) mg/dL Urine Ketones (NEGATIVE) mg/dL Urine Occult Blood (NEGATIVE) Urine Nitrite (NEGATIVE) Urine Bilirubin (NEGATIVE) Urine Ictotest Urine Urobilinogen (<2.0) EU/dL Ur Leukocyte Esterase (NEGATIVE) Urine RBC (0-2/HPF) Urine WBC (0-5/HPF) Ur Epithelial Cells (NONE-FEW) Urine Bacteria (NEGATIVE) Urine Yeast SARS-CoV-2 RNA ([place]) NEGATIVE (NEGATIVE) 06/11/20 06/11/20 06/11/20 Range/Units 15:30 15:30 15:30 WBC (4.0-11.0) K/uL RBC (4.30-5.90) M/uL Hgb (12.0-16.0) g/dL Hct (36.0-46.0) % MCV (80.0-98.0) fL MCH (27.0-32.0) pg MCHC (31.0-37.0) g/dL RDW Std Deviation (28.0-62.0) fl RDW Coeff of [place] (11.0-15.0) % Plt Count (150-400) K/uL MPV (7.40-12.00) fL Neut % (Auto) (48.0-80.0) % Lymph % (Auto) (16.0-40.0) % [place] % (Auto) (0.0-15.0) % Eos % (Auto) (0.0-7.0) % Baso % (Auto) (0.0-1.5) % Neut # (Auto) (1.4-5.7) K/uL Lymph # (Auto) (0.6-2.4) K/uL [place] # (Auto) (0.0-0.8) K/uL Eos # (Auto) (0.0-0.7) K/uL Baso # (Auto) (0.0-0.1) K/uL Nucleated RBC % /100WBC Nucleated RBCs # K/uL INR 1.13 Sodium (136-145) mmol/L Potassium (3.5-5.1) mmol/L Chloride (98-107) mmol/L Carbon Dioxide (21.0-32.0) mmol/L BUN (7.0-18.0) mg/dL Creatinine (0.6-1.0) mg/dL Est Cr Clr Drug Dosing mL/min Estimated GFR (MDRD) ml/min Glucose (74-106) mg/dL Calcium (8.5-10.1) mg/dL Phosphorus (2.6-4.7) mg/dL Magnesium (1.8-2.4) mg/dL Total Bilirubin (0.2-1.0) mg/dL AST (15-37) IU/L ALT (14-63) IU/L Alkaline Phosphatase (46-116) U/L Ammonia 39 (19-54) ug/dL B-Natriuretic Peptide 413 H (<100) PG/ML Total Protein (6.4-8.2) g/dL Albumin (3.4-5.0) g/dL Globulin (2.6-4.0) g/dL Albumin/Globulin Ratio (0.9-1.6) Amylase (25-115) U/L Lipase (73-393) U/L TSH 3rd Generation (0.36-3.74) uIU/mL Urine Color Urine Appearance Urine pH (5.0-8.0) Ur Specific [place] (1.001-1.035) Urine Protein (NEGATIVE) mg/dL Urine Glucose (UA) (NEGATIVE) mg/dL Urine Ketones (NEGATIVE) mg/dL Urine Occult Blood (NEGATIVE) Urine Nitrite (NEGATIVE) Urine Bilirubin (NEGATIVE) Urine Ictotest Urine Urobilinogen (<2.0) EU/dL Ur Leukocyte Esterase (NEGATIVE) Urine RBC (0-2/HPF) Urine WBC (0-5/HPF) Ur Epithelial Cells (NONE-FEW) Urine Bacteria (NEGATIVE) Urine Yeast SARS-CoV-2 RNA ([place]) (NEGATIVE) 06/11/20 06/11/20 Range/Units 15:30 18:24 WBC (4.0-11.0) K/uL RBC (4.30-5.90) M/uL Hgb (12.0-16.0) g/dL Hct (36.0-46.0) % MCV (80.0-98.0) fL MCH (27.0-32.0) pg MCHC (31.0-37.0) g/dL RDW Std Deviation (28.0-62.0) fl RDW Coeff of [place] (11.0-15.0) % Plt Count (150-400) K/uL MPV (7.40-12.00) fL Neut % (Auto) (48.0-80.0) % Lymph % (Auto) (16.0-40.0) % [place] % (Auto) (0.0-15.0) % Eos % (Auto) (0.0-7.0) % Baso % (Auto) (0.0-1.5) % Neut # (Auto) (1.4-5.7) K/uL Lymph # (Auto) (0.6-2.4) K/uL [place] # (Auto) (0.0-0.8) K/uL Eos # (Auto) (0.0-0.7) K/uL Baso # (Auto) (0.0-0.1) K/uL Nucleated RBC % /100WBC Nucleated RBCs # K/uL INR Sodium (136-145) mmol/L Potassium (3.5-5.1) mmol/L Chloride (98-107) mmol/L Carbon Dioxide (21.0-32.0) mmol/L BUN (7.0-18.0) mg/dL Creatinine (0.6-1.0) mg/dL Est Cr Clr Drug Dosing mL/min Estimated GFR (MDRD) ml/min Glucose (74-106) mg/dL Calcium (8.5-10.1) mg/dL Phosphorus 3.6 (2.6-4.7) mg/dL Magnesium 1.8 (1.8-2.4) mg/dL Total Bilirubin (0.2-1.0) mg/dL AST (15-37) IU/L ALT (14-63) IU/L Alkaline Phosphatase (46-116) U/L Ammonia (19-54) ug/dL B-Natriuretic Peptide (<100) PG/ML Total Protein (6.4-8.2) g/dL Albumin (3.4-5.0) g/dL Globulin (2.6-4.0) g/dL Albumin/Globulin Ratio (0.9-1.6) Amylase (25-115) U/L Lipase (73-393) U/L TSH 3rd Generation 2.16 (0.36-3.74) uIU/mL Urine Color YELLOW Urine Appearance HAZY Urine pH 5.5 (5.0-8.0) Ur Specific [place] 1.015 (1.001-1.035) Urine Protein NEGATIVE (NEGATIVE) mg/dL Urine Glucose (UA) NEGATIVE (NEGATIVE) mg/dL Urine Ketones TRACE H (NEGATIVE) mg/dL Urine Occult Blood NEGATIVE (NEGATIVE) Urine Nitrite NEGATIVE (NEGATIVE) Urine Bilirubin SMALL H (NEGATIVE) Urine Ictotest NEGATIVE Urine Urobilinogen 0.2 (<2.0) EU/dL Ur Leukocyte Esterase TRACE H (NEGATIVE) Urine RBC 0-3 (0-2/HPF) Urine WBC 5-10 (0-5/HPF) Ur Epithelial Cells FEW (NONE-FEW) Urine Bacteria 1+ H (NEGATIVE) Urine Yeast MANY SARS-CoV-2 RNA ([place]) (NEGATIVE) Meds: Medications Discontinued Medications Generic Name Dose Route Start Last Admin Trade Name Marcelino PRN Reason Stop Dose Admin Fentanyl 50 mcg 06/11/20 16:09 06/11/20 16:54 Sublimaze IVPUSH 06/11/20 16:10 50 mcg ONETIME ONE Administration Iopamidol 80 ml 06/11/20 16:46 06/11/20 16:54 Isovue Multipack-370 (76%) IVPUSH 06/11/20 16:47 80 ml ONETIME STA Administration Morphine Sulfate 2 mg 06/11/20 18:53 06/11/20 18:57 Morphine IVPUSH 06/11/20 18:54 2 mg ONETIME ONE Administration Ondansetron HCl 4 mg 06/11/20 16:09 06/11/20 16:54 Zofran IVPUSH 06/11/20 16:10 4 mg ONETIME ONE Administration - Re-Assessments/Exams Free Text/Narrative Re-Assessment/Exam: 06/11/20 19:43 Discussion with , Hospitalist Service. Discussion regarding laboratory results, imaging results, medical history, physical exam findings. If a ultrasound indicates ascites pockets we will paracentesis before admission. Same will admit the patient to general medical. 06/11/20 19:55 Free Text/Narrative Re-Assessment/Exam: 06/11/20 19:55 Bedside ultrasound did not indicate ascites pockets. Abdominal anasarca prominent. Free Text/Narrative Re-Assessment/Exam: 06/11/20 20:03 Patient self-monitoring blood sugar--she has a continuous BGM. Mellette and juice provided. The patient states she has had low protein previously. Her primary provider has told her to eat more protein before. She states she eats eggs by the dozen and meat as well. Departure - Departure Time of Disposition: 20:05 Disposition: Admitted As Inpatient 67 Condition: Fair Clinical Impression: Anasarca, Hypoproteinemia Diabetic foot ulcer Qualifiers: Diabetic foot ulcer location: heel Diabetes mellitus type: type 2 Laterality: left Non-pressure ulcer stage: limited to breakdown of skin Qualified Code(s): E11.621 - Type 2 diabetes mellitus with foot ulcer; L97.421 - Non-pressure chronic ulcer of left heel and midfoot limited to breakdown of skin Leukocytosis Qualifiers: Leukocytosis type: unspecified Qualified Code(s): D72.829 - Elevated white blood cell count, unspecified - Discharge Information Referrals: Renee Verma MD [Primary Care Provider] - Forms: ED Department Discharge Sepsis Event Note (ED) - Evaluation Sepsis Screening Result: No Definite Risk - Focused Exam Vital Signs: Vital Signs Temp Pulse Resp BP Pulse Ox 06/11/20 17:22 67 147/63 H 06/11/20 16:59 67 18 98 06/11/20 16:18 64 138/57 L 06/11/20 16:03 63 132/57 L 06/11/20 14:52 36.5 C 71 20 164/77 H 98 - My Orders Last 24 Hours: My Active Orders 06/11/20 18:05 Urinary Catheter Assessment [RC] ASDIRECTED 06/11/20 18:15 Silveira Catheter Insertion [Insert Urinary Catheter] [OM.PC] Q24H 06/11/20 18:24 CULTURE URINE [RM] Stat - Assessment/Plan Last 24 Hours: My Active Orders 06/11/20 18:05 Urinary Catheter Assessment [RC] ASDIRECTED 06/11/20 18:15 Silveira Catheter Insertion [Insert Urinary Catheter] [OM.PC] Q24H 06/11/20 18:24 CULTURE URINE [RM] Stat
[2020-06-11 16:15] LABS: CARBON DIOXIDE,CO2 32.3 mmol/L (21.0-32.0); POTASSIUM,K 4.1 mmol/L (3.5-5.1)
[2020-06-11] MEDS ORDERED: Iopamidol 755 MG/ML 500 ML Multipack Bottle IVPUSH STA (16:46)
--- NOTE | 2020-06-11 17:29 | CT ---
Indication: Abdominal pain distention, ascites Technique: Volumetric multidetector CT images of the abdomen and pelvis were obtained before and after the administration of intravenous contrast. 80 cc Isovue 370 Comparison: CT abdomen pelvis March 10, 2020 Findings: There is bibasilar pleural effusions with adjacent compressive atelectasis versus infiltrates. The liver is normal in attenuation without intrahepatic biliary ductal dilatation. The portal vein is patent. The gallbladder is surgically absent. There is moderate reservoir dilatation of the common and intrahepatic bile ducts. The spleen is normal in enhancement and size. The stomach and duodenum are grossly unremarkable. There is mild to moderate pancreatic atrophy. The adrenal glands are unremarkable. There are nonobstructing calculi within the bilateral collecting systems without evidence of distal obstructing calculus. There is otherwise preserved renal cortical medullary differentiation. There is a moderate amount of stool seen throughout the colon with minimal colonic diverticulosis without evidence of diverticulitis. The appendix is not well visualized. There is no significant mesenteric, retroperitoneal, or pelvic sidewall lymph nodes. The aorta is nonaneurysmal. There is no significant atherosclerotic disease appreciated. There is prior hysterectomy. There is mild nonspecific thickening of the bladder wall. There is a mild amount of ascites fluid seen within the 4 quadrants of the abdomen. The anterior abdominal wall is intact without significant hernias. The lumbar vertebral body heights are grossly maintained in satisfactory alignment without evidence of displaced fracture, lytic or blastic lesion. Impression: [id number] ascites fluid seen throughout the 4 quadrants of the abdomen with moderate diffuse body wall edema. Small bibasilar pleural effusions with adjacent compressive atelectasis versus infiltrates. Please note that all CT scans at this facility use dose modulation, iterative reconstruction, and/or weight-based dosing when appropriate to reduce radiation dose to as low as reasonably achievable. Dictated by Adrián Mendosa MD @ Jun 11 2020 5:00PM Signed by Dr. Adrián Mendosa @ Jun 11 2020 5:28PM
[2020-06-11] MEDS ORDERED: Morphine 2 MG/ML SYRINGE IVPUSH ONE (18:53)
--- NOTE | 2020-06-11 19:27 | CT ---
INDICATION: Bilateral pleural effusions seen on CT abdomen pelvis from earlier today TECHNIQUE: CT chest without contrast. COMPARISON: CT abdomen pelvis June 11, 2020, rib radiographs May 23, 2020, chest radiograph May 01, 2020, chest CT March 12, 2020 FINDINGS: Cardiovascular structures: Heart size is normal. Significant coronary artery calcifications. Thoracic aorta and main pulmonary artery are normal in caliber. Mediastinum and srini: 1.3 cm right paratracheal lymph node. Small hiatal hernia. Lungs: Persistent right middle lobe atelectasis. Pleura and pericardium: Small to moderate bilateral simple, free-flowing pleural effusions. Chest wall and axilla: No mass or adenopathy. Moderate anasarca. Upper abdomen: Small amount of ascites. Status post cholecystectomy. Residual intravenous contrast within the bilateral renal collecting systems from IV contrast enhanced CT abdomen pelvis performed earlier today. Surgical clips in the epigastrium. Bones: No significant findings. IMPRESSION: Small to moderate bilateral simple free-flowing pleural effusion, slightly increased in size compared to March 12, 2020. Persistent right middle lobe atelectasis. Consider pulmonology consultation for possible endoscopy. Coronary artery disease. Right paratracheal lymphadenopathy. Anasarca. Small amount of ascites. Small hiatal hernia. Findings discussed with Dr. Castro at 7:25 p.m. on June 11, 2020. Please note that all CT scans at this facility use dose modulation, iterative reconstruction, and/or weight-based dosing when appropriate to reduce radiation dose to as low as reasonably achievable. Dictated by Anna Kovacs MD @ Jun 11 2020 7:10PM Signed by Dr. Anna Kovacs @ Jun 11 2020 7:25PM
[2020-06-11] MEDS ORDERED: Furosemide 40 MG/4 ML VIAL IVPUSH ONE (19:58)
[2020-06-11] MEDS ORDERED: Glucagon,Human Recombinant 1 MG Vial IM PRN (21:37)
[2020-06-11] MEDS ORDERED: 50% Dextrose in Water 50 ML Syringe IV PRN (21:37)
[2020-06-11] MEDS ORDERED: Acetaminophen 325 MG Tab PO PRN (21:40)
--- NOTE | 2020-06-11 23:57 | PCM.HP.2 ---
H&P History of Present Illness - General Date of Service: 06/12/20 Admit Problem/Dx: Admission Diagnosis/Problem Admission Diagnosis/Problem Ascites - History of Present Illness Initial Comments - Free Text/Narative: 65 yo female with pmh of CAD, COPD, HTN, right heel ulcer, and c.diff who presents to the ED with complaints of worsening right heel pain and abdominal distention. Patient reports chronic diarrhea, She denies any erythema a or swell of the right heel ulcer. Patient denies any chest pain, shortness of breath or fevers. Patient report a cough when she lays flat. Work up was significant for a WBC of 15,000. CT chest/abdomen/pelvis reported anasarca with mild ascities, small bibasilar pleural effusions and chronic right middle lobe infiltrate. Right Lower Leg Pain Score (Numeric/FACES): 8 - Related Data Allergies/Adverse Reactions: Allergies Allergy/AdvReac Type Severity Reaction Status Date / Time No Known Allergies Allergy Verified 06/11/20 14:48 Home Medications: Home Meds Acetaminophen with Codeine [Acetaminophen-Cod #4] 2 tab PO Q4HR PRN 01/18/15 [History] Propranolol HCl 10 mg PO TID 01/18/15 [History] Sodium Bicarbonate 650 mg PO BIDMEALS 01/18/15 [History] amLODIPine [Norvasc] 5 mg PO DAILY 01/18/15 [History] Clopidogrel Bisulfate [Clopidogrel] 75 mg PO DAILY 01/21/18 [History] Pantoprazole [ProTONIX] 40 mg PO DAILY 01/21/18 [History] carisoprodoL [Carisoprodol] 350 mg PO TID PRN 01/21/18 [History] ondansetron HCL [Zofran] 4 mg PO TID PRN 01/21/18 [History] Albuterol [Ventolin HFA] 2 puff INH Q4H PRN 12/12/18 [History] Carboxymethylcellulose Sodium [Refresh Tears] 1 drop EYEBOTH ASDIRECTED PRN 12/12/18 [History] Ezetimibe 10 mg PO DAILY 12/12/18 [History] Insulin Glargine,Hum.Rec.Anlog [Basaglar Kwikpen U-100] 15 units SUBCUT BEDTIME 12/12/18 [History] Isosorbide Mononitrate [Imdur] 30 mg PO DAILY 12/12/18 [History] Nitroglycerin 0.4 mg SL .EVERY 5 MINUTES PRN MDD 3 TABLETS 12/12/18 [History] Aspirin 81 mg PO DAILY 12/14/18 [History] Cholecalciferol (Vitamin D3) [Vitamin D3] 2,000 units PO DAILY 01/15/20 [History] Glucagon [Baqsimi] 1 spray UMM ASDIRECTED PRN 01/15/20 [History] Insulin Aspart (Niacinamide) [Fiasp 100 Unit/ml Flextouch] 4 - 5 unit SUBCUT TIDMEALS 01/15/20 [History] Losartan Potassium 25 mg PO DAILY 01/15/20 [History] Alendronate Sodium 35 mg PO WEEKLY 03/12/20 [History] Non-Formulary Medication [NF Drug] 1 inhalation PO BID 03/12/20 [History] Vancomycin [Vancocin 125 MG Capsule] 125 mg PO QID #36 cap 03/15/20 [Rx] Past Medical History HEENT History: Reports: Other (See Below) Other HEENT History: wears reading glasses, upper denture Cardiovascular History: Reports: Hypertension, [place], Stents Other Cardiovascular History: Myocardial infarction 2013 Respiratory History: Reports: COPD Gastrointestinal History: Reports: Chronic Diarrhea, GERD, PUD Other Gastrointestinal History: Gastroparesis, hx gastric ulcers Genitourinary History: Reports: None 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: 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 History: Reports: Back Pain, Chronic, Fracture, Osteoarthritis Other 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 History: hx fx left arm Neurological History: Reports: Neuropathy, Diabetic Other Neuro History: essential tremors Psychiatric History: Reports: None Endocrine/Metabolic History: Reports: Diabetes, Type I, Osteopenia Hematologic History: Reports: None Immunologic History: Reports: None Oncologic (Cancer) History: Reports: None Dermatologic History: Reports: Other (See Below) Other Dermatologic History: necrobiosis lipoidica - Infectious Disease History Infectious Disease History: Reports: None - Past Surgical History Head Surgeries/Procedures: Reports: None HEENT Surgical History: Reports: Cataract Surgery Cardiovascular Surgical History: Reports: Coronary Artery Stent, Other (See Below) Other Cardiovascular Surgeries/Procedures: stents x 2 Respiratory Surgical History: Reports: None GI Surgical History: Reports: Appendectomy, Cholecystectomy, Colonoscopy, EGD, Other (See Below) Other GI Surgeries/Procedures: partial gastrectomy, ERCP with insertion of TUbe into bile/pancreatic dust Female Surgical History: Reports: Section, Hysterectomy, Tubal Ligation Endocrine Surgical History: Reports: None Neurological Surgical History: Reports: None 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 Surgical History: Reports: Carpal Tunnel, Other (See Below) Other 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 Surgeries/Procedures:: surgical tx for fx left humerous surgery Oncologic Surgical History: Reports: None Dermatological Surgical History: Reports: Skin Graft Social & Family History - Family History Family Medical History: No Pertinent Family History - Tobacco Use Tobacco Use Status *Q: Former Tobacco User Years of Tobacco use: 30 Used Tobacco, but Quit: Yes Month/Year Tobacco Last Used: 2016 - Caffeine Use Caffeine Use: Reports: Coffee Caffeine Use Comment: 1 cup of coffee every morning. 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 Exam - Exam Exam: See Below - Vital Signs Vital Signs: Last Vital Signs Temp 36.3 C 06/11/20 22:33 Pulse 65 06/11/20 22:33 Resp 14 06/11/20 22:33 BP 152/62 H 06/11/20 22:33 Pulse Ox 96 06/11/20 22:33 Weight: 44.452 kg - Exam General: Alert, Oriented HEENT: Mucosa Moist & [place] Lungs: Clear to Auscultation, Normal Respiratory Effort Cardiovascular: Regular Rate, Regular Rhythm GI/Abdominal Exam: Normal Bowel Sounds, Soft, Non-Tender Extremities: Non-Tender, No Pedal Edema Skin: Warm, Dry, Intact, Other (4-cm ulcer at right heel, no erythema, no edema, no drainage) - Patient Data Lab Results Last 24 hrs: Laboratory Results - last 24 hr 06/11/20 06/11/20 06/11/20 Range/Units 15:30 15:30 15:30 WBC 15.30 H (4.0-11.0) K/uL RBC 3.69 L (4.30-5.90) M/uL Hgb 11.3 L (12.0-16.0) g/dL Hct 34.7 L (36.0-46.0) % MCV 94.0 (80.0-98.0) fL MCH 30.6 (27.0-32.0) pg MCHC 32.6 (31.0-37.0) g/dL RDW Std Deviation 55.4 (28.0-62.0) fl RDW Coeff of Hesham 16 H (11.0-15.0) % Plt Count 397 (150-400) K/uL MPV 10.00 (7.40-12.00) fL Neut % (Auto) 75.8 (48.0-80.0) % Lymph % (Auto) 13.9 L (16.0-40.0) % Anderson % (Auto) 9.8 (0.0-15.0) % Eos % (Auto) 0.3 (0.0-7.0) % Baso % (Auto) 0.2 (0.0-1.5) % Neut # (Auto) 11.6 H (1.4-5.7) K/uL Lymph # (Auto) 2.1 (0.6-2.4) K/uL Anderson # (Auto) 1.5 H (0.0-0.8) K/uL Eos # (Auto) 0.0 (0.0-0.7) K/uL Baso # (Auto) 0.0 (0.0-0.1) K/uL Nucleated RBC % 0.0 /100WBC Nucleated RBCs # 0 K/uL INR Sodium 142 (136-145) mmol/L Potassium 4.1 (3.5-5.1) mmol/L Chloride 104 (98-107) mmol/L Carbon Dioxide 32.3 H (21.0-32.0) mmol/L BUN 13 (7.0-18.0) mg/dL Creatinine 1.0 (0.6-1.0) mg/dL Est Cr Clr Drug Dosing 39.88 mL/min Estimated GFR (MDRD) 55.8 ml/min Glucose 132 H (74-106) mg/dL Calcium 7.7 L (8.5-10.1) mg/dL Phosphorus (2.6-4.7) mg/dL Magnesium (1.8-2.4) mg/dL Total Bilirubin 0.5 (0.2-1.0) mg/dL AST 28 (15-37) IU/L ALT 33 (14-63) IU/L Alkaline Phosphatase 174 H (46-116) U/L Ammonia (19-54) ug/dL B-Natriuretic Peptide (<100) PG/ML Total Protein 5.2 L (6.4-8.2) g/dL Albumin 1.6 L (3.4-5.0) g/dL Globulin 3.6 (2.6-4.0) g/dL Albumin/Globulin Ratio 0.4 L (0.9-1.6) Amylase 11 L (25-115) U/L Lipase 17 L (73-393) U/L Free T4 (0.76-1.46) ng/dL TSH 3rd Generation (0.36-3.74) uIU/mL Urine Color Urine Appearance Urine pH (5.0-8.0) Ur Specific Baker (1.001-1.035) Urine Protein (NEGATIVE) mg/dL Urine Glucose (UA) (NEGATIVE) mg/dL Urine Ketones (NEGATIVE) mg/dL Urine Occult Blood (NEGATIVE) Urine Nitrite (NEGATIVE) Urine Bilirubin (NEGATIVE) Urine Ictotest Urine Urobilinogen (<2.0) EU/dL Ur Leukocyte Esterase (NEGATIVE) Urine RBC (0-2/HPF) Urine WBC (0-5/HPF) Ur Epithelial Cells (NONE-FEW) Urine Bacteria (NEGATIVE) Urine Yeast SARS-CoV-2 RNA ([place]) NEGATIVE (NEGATIVE) 06/11/20 06/11/20 06/11/20 Range/Units 15:30 15:30 15:30 WBC (4.0-11.0) K/uL RBC (4.30-5.90) M/uL Hgb (12.0-16.0) g/dL Hct (36.0-46.0) % MCV (80.0-98.0) fL MCH (27.0-32.0) pg MCHC (31.0-37.0) g/dL RDW Std Deviation (28.0-62.0) fl RDW Coeff of Hesham (11.0-15.0) % Plt Count (150-400) K/uL MPV (7.40-12.00) fL Neut % (Auto) (48.0-80.0) % Lymph % (Auto) (16.0-40.0) % Anderson % (Auto) (0.0-15.0) % Eos % (Auto) (0.0-7.0) % Baso % (Auto) (0.0-1.5) % Neut # (Auto) (1.4-5.7) K/uL Lymph # (Auto) (0.6-2.4) K/uL Anderson # (Auto) (0.0-0.8) K/uL Eos # (Auto) (0.0-0.7) K/uL Baso # (Auto) (0.0-0.1) K/uL Nucleated RBC % /100WBC Nucleated RBCs # K/uL INR 1.13 Sodium (136-145) mmol/L Potassium (3.5-5.1) mmol/L Chloride (98-107) mmol/L Carbon Dioxide (21.0-32.0) mmol/L BUN (7.0-18.0) mg/dL Creatinine (0.6-1.0) mg/dL Est Cr Clr Drug Dosing mL/min Estimated GFR (MDRD) ml/min Glucose (74-106) mg/dL Calcium (8.5-10.1) mg/dL Phosphorus (2.6-4.7) mg/dL Magnesium (1.8-2.4) mg/dL Total Bilirubin (0.2-1.0) mg/dL AST (15-37) IU/L ALT (14-63) IU/L Alkaline Phosphatase (46-116) U/L Ammonia 39 (19-54) ug/dL B-Natriuretic Peptide 413 H (<100) PG/ML Total Protein (6.4-8.2) g/dL Albumin (3.4-5.0) g/dL Globulin (2.6-4.0) g/dL Albumin/Globulin Ratio (0.9-1.6) Amylase (25-115) U/L Lipase (73-393) U/L Free T4 (0.76-1.46) ng/dL TSH 3rd Generation (0.36-3.74) uIU/mL Urine Color Urine Appearance Urine pH (5.0-8.0) Ur Specific Baker (1.001-1.035) Urine Protein (NEGATIVE) mg/dL Urine Glucose (UA) (NEGATIVE) mg/dL Urine Ketones (NEGATIVE) mg/dL Urine Occult Blood (NEGATIVE) Urine Nitrite (NEGATIVE) Urine Bilirubin (NEGATIVE) Urine Ictotest Urine Urobilinogen (<2.0) EU/dL Ur Leukocyte Esterase (NEGATIVE) Urine RBC (0-2/HPF) Urine WBC (0-5/HPF) Ur Epithelial Cells (NONE-FEW) Urine Bacteria (NEGATIVE) Urine Yeast SARS-CoV-2 RNA ([place]) (NEGATIVE) 06/11/20 06/11/20 06/11/20 Range/Units 15:30 15:30 18:24 WBC (4.0-11.0) K/uL RBC (4.30-5.90) M/uL Hgb (12.0-16.0) g/dL Hct (36.0-46.0) % MCV (80.0-98.0) fL MCH (27.0-32.0) pg MCHC (31.0-37.0) g/dL RDW Std Deviation (28.0-62.0) fl RDW Coeff of Hesham (11.0-15.0) % Plt Count (150-400) K/uL MPV (7.40-12.00) fL Neut % (Auto) (48.0-80.0) % Lymph % (Auto) (16.0-40.0) % Anderson % (Auto) (0.0-15.0) % Eos % (Auto) (0.0-7.0) % Baso % (Auto) (0.0-1.5) % Neut # (Auto) (1.4-5.7) K/uL Lymph # (Auto) (0.6-2.4) K/uL Anderson # (Auto) (0.0-0.8) K/uL Eos # (Auto) (0.0-0.7) K/uL Baso # (Auto) (0.0-0.1) K/uL Nucleated RBC % /100WBC Nucleated RBCs # K/uL INR Sodium (136-145) mmol/L Potassium (3.5-5.1) mmol/L Chloride (98-107) mmol/L Carbon Dioxide (21.0-32.0) mmol/L BUN (7.0-18.0) mg/dL Creatinine (0.6-1.0) mg/dL Est Cr Clr Drug Dosing mL/min Estimated GFR (MDRD) ml/min Glucose (74-106) mg/dL Calcium (8.5-10.1) mg/dL Phosphorus 3.6 (2.6-4.7) mg/dL Magnesium 1.8 (1.8-2.4) mg/dL Total Bilirubin (0.2-1.0) mg/dL AST (15-37) IU/L ALT (14-63) IU/L Alkaline Phosphatase (46-116) U/L Ammonia (19-54) ug/dL B-Natriuretic Peptide (<100) PG/ML Total Protein (6.4-8.2) g/dL Albumin (3.4-5.0) g/dL Globulin (2.6-4.0) g/dL Albumin/Globulin Ratio (0.9-1.6) Amylase (25-115) U/L Lipase (73-393) U/L Free T4 1.06 (0.76-1.46) ng/dL TSH 3rd Generation 2.16 (0.36-3.74) uIU/mL Urine Color YELLOW Urine Appearance HAZY Urine pH 5.5 (5.0-8.0) Ur Specific Baker 1.015 (1.001-1.035) Urine Protein NEGATIVE (NEGATIVE) mg/dL Urine Glucose (UA) NEGATIVE (NEGATIVE) mg/dL Urine Ketones TRACE H (NEGATIVE) mg/dL Urine Occult Blood NEGATIVE (NEGATIVE) Urine Nitrite NEGATIVE (NEGATIVE) Urine Bilirubin SMALL H (NEGATIVE) Urine Ictotest NEGATIVE Urine Urobilinogen 0.2 (<2.0) EU/dL Ur Leukocyte Esterase TRACE H (NEGATIVE) Urine RBC 0-3 (0-2/HPF) Urine WBC 5-10 (0-5/HPF) Ur Epithelial Cells FEW (NONE-FEW) Urine Bacteria 1+ H (NEGATIVE) Urine Yeast MANY SARS-CoV-2 RNA ([place]) (NEGATIVE) Result Diagrams: 06/11/20 15:30 06/11/20 15:30 Sepsis Event Note - Evaluation Sepsis Screening Result: No Definite Risk - Focused Exam Vital Signs: Vital Signs Temp Pulse Resp BP BP Pulse Ox 06/11/20 22:33 36.3 C 65 14 152/62 H 96 06/11/20 17:22 67 147/63 H 06/11/20 16:59 67 18 98 06/11/20 16:18 64 138/57 L 06/11/20 16:03 63 132/57 L 06/11/20 14:52 36.5 C 71 20 164/77 H 98 Problem List Initiated/Reviewed/Updated: Yes Orders Last 24hrs: Active Orders 24 hr Category Date Time Status Patient Status [ADT] Stat ADT 06/11/20 19:58 Active Accu Check [Blood Glucose Check, Bedside] [RC] TIDMEALS Care 06/11/20 21:36 Active [place] Catheter Insertion [Insert Urinary Catheter] [OM. Care 06/11/20 18:15 Ordered PC] Q24H Urinary Catheter Assessment [RC] ASDIRECTED Care 06/11/20 18:05 Active [place] [employer] Diet [DIET] Diet 06/12/20 Breakfast Active CBC WITH AUTO DIFF [HEME] Routine Lab 06/12/20 05:00 Ordered CMP [COMPREHENSIVE METABOLIC PN,CMP] [CHEM] Routine Lab 06/12/20 05:00 Ordered CULTURE URINE [RM] Stat Lab 06/11/20 18:24 Received Acetaminophen [TylenoL] Med 06/11/20 21:40 Active 325 mg PO Q6H PRN Dextrose 50% in Water Med 06/11/20 21:37 Active 50 ml IV ASDIRECTED PRN Glucagon,Human Recombinant [GlucaGen] Med 06/11/20 21:37 Active 1 mg IM ASDIRECTED PRN Insulin Aspart [NovoLOG] Med 06/12/20 07:30 Active See Protocol SUBCUT TIDAC Medication Orders Acetaminophen (Tylenol) 325 mg PO Q6H PRN PRN Reason: Pain Dextrose/Water (Dextrose 50% In Water) 50 ml IV ASDIRECTED PRN PRN Reason: Hypoglycemia Glucagon (Glucagen) 1 mg IM ASDIRECTED PRN PRN Reason: Hypoglycemia Insulin Aspart (Novolog) 0 unit SUBCUT TIDAC [facility]; Protocol Assessment/Plan Comment:: 65 yo female admitted for anasarca anasarca: uncertain of cause, will check echocardiogram, will diureses with lasix leukocytosis: will treat with Rocephin and azithromycin for possible pneumonia and UTI. Cultures pending, C.diff studies ordered. Patient will likely need referral to pulmonoloty. DM: diabetic diet, ssi CAD: plavix/ASA
[2020-06-12] MEDS ORDERED: cefTRIAXone 1 GM in Sodium Chloride 0.9% 50 ML IV SCH (00:30)
[2020-06-12] MEDS ORDERED: Azithromycin 500 MG Vial IV SCH (00:30)
[2020-06-12] MEDS: TYLENOL PO PRN ×4 (00:47→20:18)
[2020-06-12] MEDS: cefTRIAXone 1 GM in Premix Bag 1 BAG IV SCH (01:00)
[2020-06-12] MEDS: Azithromycin 500 MG in Sodium Chloride 0.9% 250 ML IV SCH (02:04)
[2020-06-12 05:49] LABS: BLOOD UREA NITROGEN,BUN 10 mg/dL (7.0-18.0); CARBON DIOXIDE,CO2 32.5 mmol/L (21.0-32.0); CHLORIDE,CL 101 mmol/L (98-107); GLUCOSE RANDOM 193 mg/dL (74-106); SODIUM,NA 140 mmol/L (136-145)
[2020-06-12] MEDS: Propranolol 20 MG Tab PO SCH ×3 (05:59→22:17)
[2020-06-12] MEDS ORDERED: Ondansetron 4 MG/2 ML SDV IVPUSH PRN (08:21)
--- NOTE | 2020-06-12 08:25 | PCM.PN ---
- General Info Date of Service: 06/12/20 Admission Dx/Problem (Free Text): Admission Diagnosis/Problem Admission Diagnosis/Problem Ascites Subjective Update: Continues to feel tired and overall not feeling well which has been a new for her. Denies any chest pain or shortness of breath. Continues to have increased chronic pain to left foot as well as her all over osteoarthritic pain. Denies any fevers or chills has a bit of a poor appetite. Denies any other concerns Functional Status: Reports: Pain Controlled, Tolerating Diet, Ambulating - Review of Systems General: Reports: Fatigue, Malaise HEENT: Reports: No Symptoms. Denies: Headaches, Sore Throat, Visual Changes Pulmonary: Reports: No Symptoms. Denies: Shortness of Breath Cardiovascular: Reports: No Symptoms. Denies: Chest Pain Gastrointestinal: Reports: Decreased Appetite, Other (Feels distended). Denies: Abdominal Pain, Nausea, Vomiting 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: Reports: No Symptoms Skin: Reports: Other (Wound to second toe on left foot, generalized edema all over.) Neurological: Reports: No Symptoms Psychiatric: Reports: No Symptoms - Patient Data Vitals - Most Recent: Last Vital Signs Temp 97.8 F 06/12/20 03:36 Pulse 67 06/12/20 03:36 Resp 16 06/12/20 03:36 BP 116/50 L 06/12/20 03:36 Pulse Ox 92 L 06/12/20 03:36 Weight - Most Recent: 44.452 kg I&O - Last 24 Hours: Intake & Output 06/11/20 06/12/20 06/12/20 22:59 06:59 14:59 Intake Total 700 Output Total 1800 Balance -1100 Lab Results Last 24 Hours: Laboratory Results - last 24 hr 06/11/20 06/11/20 06/11/20 Range/Units 15:30 15:30 15:30 WBC 15.30 H (4.0-11.0) K/uL RBC 3.69 L (4.30-5.90) M/uL Hgb 11.3 L (12.0-16.0) g/dL Hct 34.7 L (36.0-46.0) % MCV 94.0 (80.0-98.0) fL MCH 30.6 (27.0-32.0) pg MCHC 32.6 (31.0-37.0) g/dL RDW Std Deviation 55.4 (28.0-62.0) fl RDW Coeff of [place] 16 H (11.0-15.0) % Plt Count 397 (150-400) K/uL MPV 10.00 (7.40-12.00) fL Neut % (Auto) 75.8 (48.0-80.0) % Lymph % (Auto) 13.9 L (16.0-40.0) % [place] % (Auto) 9.8 (0.0-15.0) % Eos % (Auto) 0.3 (0.0-7.0) % Baso % (Auto) 0.2 (0.0-1.5) % Neut # (Auto) 11.6 H (1.4-5.7) K/uL Lymph # (Auto) 2.1 (0.6-2.4) K/uL [place] # (Auto) 1.5 H (0.0-0.8) K/uL Eos # (Auto) 0.0 (0.0-0.7) K/uL Baso # (Auto) 0.0 (0.0-0.1) K/uL Nucleated RBC % 0.0 /100WBC Nucleated RBCs # 0 K/uL INR Sodium 142 (136-145) mmol/L Potassium 4.1 (3.5-5.1) mmol/L Chloride 104 (98-107) mmol/L Carbon Dioxide 32.3 H (21.0-32.0) mmol/L BUN 13 (7.0-18.0) mg/dL Creatinine 1.0 (0.6-1.0) mg/dL Est Cr Clr Drug Dosing 39.88 mL/min Estimated GFR (MDRD) 55.8 ml/min Glucose 132 H (74-106) mg/dL POC Glucose (60-110) mg/dL Calcium 7.7 L (8.5-10.1) mg/dL Phosphorus (2.6-4.7) mg/dL Magnesium (1.8-2.4) mg/dL Total Bilirubin 0.5 (0.2-1.0) mg/dL AST 28 (15-37) IU/L ALT 33 (14-63) IU/L Alkaline Phosphatase 174 H (46-116) U/L Ammonia (19-54) ug/dL B-Natriuretic Peptide (<100) PG/ML Total Protein 5.2 L (6.4-8.2) g/dL Albumin 1.6 L (3.4-5.0) g/dL Globulin 3.6 (2.6-4.0) g/dL Albumin/Globulin Ratio 0.4 L (0.9-1.6) Amylase 11 L (25-115) U/L Lipase 17 L (73-393) U/L Free T4 (0.76-1.46) ng/dL TSH 3rd Generation (0.36-3.74) uIU/mL Urine Color Urine Appearance Urine pH (5.0-8.0) Ur Specific [place] (1.001-1.035) Urine Protein (NEGATIVE) mg/dL Urine Glucose (UA) (NEGATIVE) mg/dL Urine Ketones (NEGATIVE) mg/dL Urine Occult Blood (NEGATIVE) Urine Nitrite (NEGATIVE) Urine Bilirubin (NEGATIVE) Urine Ictotest Urine Urobilinogen (<2.0) EU/dL Ur Leukocyte Esterase (NEGATIVE) Urine RBC (0-2/HPF) Urine WBC (0-5/HPF) Ur Epithelial Cells (NONE-FEW) Urine Bacteria (NEGATIVE) Urine Yeast SARS-CoV-2 RNA ([place]) NEGATIVE (NEGATIVE) 06/11/20 06/11/20 06/11/20 Range/Units 15:30 15:30 15:30 WBC (4.0-11.0) K/uL RBC (4.30-5.90) M/uL Hgb (12.0-16.0) g/dL Hct (36.0-46.0) % MCV (80.0-98.0) fL MCH (27.0-32.0) pg MCHC (31.0-37.0) g/dL RDW Std Deviation (28.0-62.0) fl RDW Coeff of [place] (11.0-15.0) % Plt Count (150-400) K/uL MPV (7.40-12.00) fL Neut % (Auto) (48.0-80.0) % Lymph % (Auto) (16.0-40.0) % [place] % (Auto) (0.0-15.0) % Eos % (Auto) (0.0-7.0) % Baso % (Auto) (0.0-1.5) % Neut # (Auto) (1.4-5.7) K/uL Lymph # (Auto) (0.6-2.4) K/uL [place] # (Auto) (0.0-0.8) K/uL Eos # (Auto) (0.0-0.7) K/uL Baso # (Auto) (0.0-0.1) K/uL Nucleated RBC % /100WBC Nucleated RBCs # K/uL INR 1.13 Sodium (136-145) mmol/L Potassium (3.5-5.1) mmol/L Chloride (98-107) mmol/L Carbon Dioxide (21.0-32.0) mmol/L BUN (7.0-18.0) mg/dL Creatinine (0.6-1.0) mg/dL Est Cr Clr Drug Dosing mL/min Estimated GFR (MDRD) ml/min Glucose (74-106) mg/dL POC Glucose (60-110) mg/dL Calcium (8.5-10.1) mg/dL Phosphorus (2.6-4.7) mg/dL Magnesium (1.8-2.4) mg/dL Total Bilirubin (0.2-1.0) mg/dL AST (15-37) IU/L ALT (14-63) IU/L Alkaline Phosphatase (46-116) U/L Ammonia 39 (19-54) ug/dL B-Natriuretic Peptide 413 H (<100) PG/ML Total Protein (6.4-8.2) g/dL Albumin (3.4-5.0) g/dL Globulin (2.6-4.0) g/dL Albumin/Globulin Ratio (0.9-1.6) Amylase (25-115) U/L Lipase (73-393) U/L Free T4 (0.76-1.46) ng/dL TSH 3rd Generation (0.36-3.74) uIU/mL Urine Color Urine Appearance Urine pH (5.0-8.0) Ur Specific [place] (1.001-1.035) Urine Protein (NEGATIVE) mg/dL Urine Glucose (UA) (NEGATIVE) mg/dL Urine Ketones (NEGATIVE) mg/dL Urine Occult Blood (NEGATIVE) Urine Nitrite (NEGATIVE) Urine Bilirubin (NEGATIVE) Urine Ictotest Urine Urobilinogen (<2.0) EU/dL Ur Leukocyte Esterase (NEGATIVE) Urine RBC (0-2/HPF) Urine WBC (0-5/HPF) Ur Epithelial Cells (NONE-FEW) Urine Bacteria (NEGATIVE) Urine Yeast SARS-CoV-2 RNA ([place]) (NEGATIVE) 06/11/20 06/11/20 06/11/20 Range/Units 15:30 15:30 18:24 WBC (4.0-11.0) K/uL RBC (4.30-5.90) M/uL Hgb (12.0-16.0) g/dL Hct (36.0-46.0) % MCV (80.0-98.0) fL MCH (27.0-32.0) pg MCHC (31.0-37.0) g/dL RDW Std Deviation (28.0-62.0) fl RDW Coeff of [place] (11.0-15.0) % Plt Count (150-400) K/uL MPV (7.40-12.00) fL Neut % (Auto) (48.0-80.0) % Lymph % (Auto) (16.0-40.0) % [place] % (Auto) (0.0-15.0) % Eos % (Auto) (0.0-7.0) % Baso % (Auto) (0.0-1.5) % Neut # (Auto) (1.4-5.7) K/uL Lymph # (Auto) (0.6-2.4) K/uL [place] # (Auto) (0.0-0.8) K/uL Eos # (Auto) (0.0-0.7) K/uL Baso # (Auto) (0.0-0.1) K/uL Nucleated RBC % /100WBC Nucleated RBCs # K/uL INR Sodium (136-145) mmol/L Potassium (3.5-5.1) mmol/L Chloride (98-107) mmol/L Carbon Dioxide (21.0-32.0) mmol/L BUN (7.0-18.0) mg/dL Creatinine (0.6-1.0) mg/dL Est Cr Clr Drug Dosing mL/min Estimated GFR (MDRD) ml/min Glucose (74-106) mg/dL POC Glucose (60-110) mg/dL Calcium (8.5-10.1) mg/dL Phosphorus 3.6 (2.6-4.7) mg/dL Magnesium 1.8 (1.8-2.4) mg/dL Total Bilirubin (0.2-1.0) mg/dL AST (15-37) IU/L ALT (14-63) IU/L Alkaline Phosphatase (46-116) U/L Ammonia (19-54) ug/dL B-Natriuretic Peptide (<100) PG/ML Total Protein (6.4-8.2) g/dL Albumin (3.4-5.0) g/dL Globulin (2.6-4.0) g/dL Albumin/Globulin Ratio (0.9-1.6) Amylase (25-115) U/L Lipase (73-393) U/L Free T4 1.06 (0.76-1.46) ng/dL TSH 3rd Generation 2.16 (0.36-3.74) uIU/mL Urine Color YELLOW Urine Appearance HAZY Urine pH 5.5 (5.0-8.0) Ur Specific [place] 1.015 (1.001-1.035) Urine Protein NEGATIVE (NEGATIVE) mg/dL Urine Glucose (UA) NEGATIVE (NEGATIVE) mg/dL Urine Ketones TRACE H (NEGATIVE) mg/dL Urine Occult Blood NEGATIVE (NEGATIVE) Urine Nitrite NEGATIVE (NEGATIVE) Urine Bilirubin SMALL H (NEGATIVE) Urine Ictotest NEGATIVE Urine Urobilinogen 0.2 (<2.0) EU/dL Ur Leukocyte Esterase TRACE H (NEGATIVE) Urine RBC 0-3 (0-2/HPF) Urine WBC 5-10 (0-5/HPF) Ur Epithelial Cells FEW (NONE-FEW) Urine Bacteria 1+ H (NEGATIVE) Urine Yeast MANY SARS-CoV-2 RNA ([place]) (NEGATIVE) 06/12/20 06/12/20 06/12/20 Range/Units 04:50 04:50 05:56 WBC 14.54 H (4.0-11.0) K/uL RBC 3.55 L (4.30-5.90) M/uL Hgb 10.7 L (12.0-16.0) g/dL Hct 32.5 L (36.0-46.0) % MCV 91.5 (80.0-98.0) fL MCH 30.1 (27.0-32.0) pg MCHC 32.9 (31.0-37.0) g/dL RDW Std Deviation 55.1 (28.0-62.0) fl RDW Coeff of [place] 16 H (11.0-15.0) % Plt Count 331 (150-400) K/uL MPV 10.20 (7.40-12.00) fL Neut % (Auto) 80.0 (48.0-80.0) % Lymph % (Auto) 10.0 L (16.0-40.0) % [place] % (Auto) 9.1 (0.0-15.0) % Eos % (Auto) 0.6 (0.0-7.0) % Baso % (Auto) 0.3 (0.0-1.5) % Neut # (Auto) 11.6 H (1.4-5.7) K/uL Lymph # (Auto) 1.5 (0.6-2.4) K/uL [place] # (Auto) 1.3 H (0.0-0.8) K/uL Eos # (Auto) 0.1 (0.0-0.7) K/uL Baso # (Auto) 0.0 (0.0-0.1) K/uL Nucleated RBC % 0.0 /100WBC Nucleated RBCs # 0 K/uL INR Sodium 140 (136-145) mmol/L Potassium 3.0 L (3.5-5.1) mmol/L Chloride 101 (98-107) mmol/L Carbon Dioxide 32.5 H (21.0-32.0) mmol/L BUN 10 (7.0-18.0) mg/dL Creatinine 0.7 (0.6-1.0) mg/dL Est Cr Clr Drug Dosing 56.98 mL/min Estimated GFR (MDRD) > 60.0 ml/min Glucose 193 H (74-106) mg/dL POC Glucose 214 H (60-110) mg/dL Calcium 7.1 L (8.5-10.1) mg/dL Phosphorus (2.6-4.7) mg/dL Magnesium (1.8-2.4) mg/dL Total Bilirubin 0.5 (0.2-1.0) mg/dL AST 26 (15-37) IU/L ALT 23 (14-63) IU/L Alkaline Phosphatase 153 H (46-116) U/L Ammonia (19-54) ug/dL B-Natriuretic Peptide (<100) PG/ML Total Protein 4.6 L (6.4-8.2) g/dL Albumin 1.4 L (3.4-5.0) g/dL Globulin 3.2 (2.6-4.0) g/dL Albumin/Globulin Ratio 0.4 L (0.9-1.6) Amylase (25-115) U/L Lipase (73-393) U/L Free T4 (0.76-1.46) ng/dL TSH 3rd Generation (0.36-3.74) uIU/mL Urine Color Urine Appearance Urine pH (5.0-8.0) Ur Specific [place] (1.001-1.035) Urine Protein (NEGATIVE) mg/dL Urine Glucose (UA) (NEGATIVE) mg/dL Urine Ketones (NEGATIVE) mg/dL Urine Occult Blood (NEGATIVE) Urine Nitrite (NEGATIVE) Urine Bilirubin (NEGATIVE) Urine Ictotest Urine Urobilinogen (<2.0) EU/dL Ur Leukocyte Esterase (NEGATIVE) Urine RBC (0-2/HPF) Urine WBC (0-5/HPF) Ur Epithelial Cells (NONE-FEW) Urine Bacteria (NEGATIVE) Urine Yeast SARS-CoV-2 RNA ([place]) (NEGATIVE) Med Orders - Current: Current Medications Acetaminophen (Tylenol) 325 mg PO Q6H PRN PRN Reason: Pain Amlodipine Besylate (Norvasc) 5 mg PO DAILY [facility] Aspirin (Aspirin) 81 mg PO DAILY [facility] Carisoprodol (Soma) 350 mg PO TID PRN PRN Reason: Muscle Spasm Last Admin: 06/12/20 00:54 Dose: 350 mg Documented by: Clopidogrel Bisulfate (Plavix) 75 mg PO DAILY [facility] Dextrose/Water (Dextrose 50% In Water) 50 ml IV ASDIRECTED PRN PRN Reason: Hypoglycemia Ezetimibe (Zetia) 10 mg PO DAILY [facility] Glucagon (Glucagen) 1 mg IM ASDIRECTED PRN PRN Reason: Hypoglycemia Furosemide 40 mg/ Sodium (Chloride) 54 mls @ 100 mls/hr IV BID [facility] Ceftriaxone Sodium/Dextrose 1 (gm/ Premix) 50 mls @ 100 mls/hr IV Q24H [facility] Last Admin: 06/12/20 01:00 Dose: 100 mls/hr Documented by: Azithromycin 500 mg/ Sodium (Chloride) 250 mls @ 250 mls/hr IV Q24H [facility] Last Admin: 06/12/20 02:04 Dose: 250 mls/hr Documented by: Insulin Aspart (Novolog) 0 unit SUBCUT TIDAC [facility]; Protocol Isosorbide Mononitrate (Imdur) 30 mg PO DAILY [facility] Losartan Potassium (Cozaar) 25 mg PO DAILY [facility] Ondansetron HCl (Zofran) 4 mg IVPUSH Q4H PRN PRN Reason: Nausea Pantoprazole Sodium (Protonix) 40 mg PO DAILY [facility] Patient's Own MedicationTylenol #4 2 each PO Q4HR PRN PRN Reason: Pain Last Admin: 06/12/20 00:47 Dose: 2 each Documented by: Potassium Chloride (Klor-Con 10) 40 meq PO BID [facility] Propranolol HCl (Inderal) 10 mg PO TID [facility] Last Admin: 06/12/20 05:59 Dose: 10 mg Documented by: Discontinued Medications Fentanyl (Sublimaze) 50 mcg IVPUSH ONETIME ONE Stop: 06/11/20 16:10 Last Admin: 06/11/20 16:54 Dose: 50 mcg Documented by: Furosemide (Lasix) 40 mg IVPUSH NOW ONE Stop: 06/11/20 19:59 Last Admin: 06/11/20 20:05 Dose: 40 mg Documented by: Iopamidol (Isovue Multipack-370 (76%)) 80 ml IVPUSH ONETIME STA Stop: 06/11/20 16:47 Last Admin: 06/11/20 16:54 Dose: 80 ml Documented by: Morphine Sulfate (Morphine) 2 mg IVPUSH ONETIME ONE Stop: 06/11/20 18:54 Last Admin: 06/11/20 18:57 Dose: 2 mg Documented by: Ondansetron HCl (Zofran) 4 mg IVPUSH ONETIME ONE Stop: 06/11/20 16:10 Last Admin: 06/11/20 16:54 Dose: 4 mg Documented by: - Exam General: Alert, Oriented, Cooperative, No Acute Distress Lungs: Decreased Breath Sounds (Bibasilar), Crackles (Fine crackles bibasilar) Cardiovascular: Regular Rate, Regular Rhythm GI/Abdominal Exam: Normal Bowel Sounds, Soft, Non-Tender, Distended, Hepa tomegaly Extremities: Normal Inspection, Normal Range of Motion, Non-Tender, Pedal Edema (+1 pitting edema to bilateral lower extremities along with upper extremities and noted to sacral and coccygeal areas.) Wound/Incisions: Erythema (Second toe left foot is erythematous with tenderness. Has ulceration to dorsum of second toe. As well as heel ulcer which has nonblanchable skin approximately 3 in circumferentially.) Neurological: No New Focal Deficit Psy/Mental Status: Alert, Normal Affect, Normal Mood Sepsis Event Note - Evaluation Sepsis Screening Result: No Definite Risk - Focused Exam Vital Signs: Vital Signs Temp Pulse Resp BP Pulse Ox 06/12/20 03:36 97.8 F 67 16 116/50 L 92 L 06/11/20 22:33 97.4 F 65 14 152/62 H 96 - Problem List & Annotations (1) Anasarca SNOMED Code(s): 387468390, 104579666 Code(s): R60.1 - GENERALIZED EDEMA Status: Acute Current Visit: Yes (2) Diabetic foot ulcer SNOMED Code(s): 812910344 Code(s): E11.621 - TYPE 2 DIABETES MELLITUS WITH FOOT ULCER; L97.509 - NON- PRESSURE CHRONIC ULCER OTH PRT UNSP FOOT W UNSP SEVERITY Status: Acute Current Visit: Yes Qualifiers: Diabetic foot ulcer location: heel Diabetes mellitus type: type 1 Laterality: left Non-pressure ulcer stage: limited to breakdown of skin Qualified Code(s): E10.621 - Type 1 diabetes mellitus with foot ulcer; L97.421 - Non-pressure chronic ulcer of left heel and midfoot limited to breakdown of skin (3) Hypoproteinemia SNOMED Code(s): 2712019 Code(s): E77.8 - OTHER DISORDERS OF GLYCOPROTEIN METABOLISM Status: Acute Current Visit: Yes (4) Leukocytosis SNOMED Code(s): 416387350, 523697135 Code(s): D72.829 - ELEVATED WHITE BLOOD CELL COUNT, UNSPECIFIED Status: Acute Priority: High Current Visit: Yes Qualifiers: Leukocytosis type: unspecified Qualified Code(s): D72.829 - Elevated white blood cell count, unspecified (5) Gait instability SNOMED Code(s): 28875672 Code(s): R26.81 - UNSTEADINESS ON FEET Status: Acute Current Visit: No (6) CAD (coronary artery disease) SNOMED Code(s): 72983693 Code(s): I25.10 - ATHSCL HEART DISEASE OF [place] CORONARY ARTERY W/O ANG PCTRS Status: Chronic Current Visit: No (7) COPD (chronic obstructive pulmonary disease) SNOMED Code(s): 83637510 Code(s): J44.9 - CHRONIC OBSTRUCTIVE PULMONARY DISEASE, UNSPECIFIED Status: Chronic Current Visit: No Qualifiers: COPD type: unspecified COPD Qualified Code(s): J44.9 - Chronic obstructive pulmonary disease, unspecified (8) Chronic pain SNOMED Code(s): 01790106 Code(s): G89.29 - OTHER CHRONIC PAIN Status: Chronic Current Visit: No (9) Diabetes mellitus type 1, controlled, insulin dependent SNOMED Code(s): 77495708, 363578050 Code(s): E10.9 - TYPE 1 DIABETES MELLITUS WITHOUT COMPLICATIONS Status: Chronic Priority: High Current Visit: No (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 SNOMED Code(s): 82915714 Code(s): E11.620 - TYPE 2 DIABETES MELLITUS WITH DIABETIC DERMATITIS Status: Chronic Priority: High Current Visit: No (11) HTN (hypertension) SNOMED Code(s): 21383609 Code(s): I10 - ESSENTIAL (PRIMARY) HYPERTENSION Status: Chronic Current Visit: No Qualifiers: Hypertension type: essential hypertension Qualified Code(s): I10 - Essential (primary) hypertension (12) GERD (gastroesophageal reflux disease) SNOMED Code(s): 297050010 Code(s): K21.9 - GASTRO-ESOPHAGEAL REFLUX DISEASE WITHOUT ESOPHAGITIS Statu s: Chronic Current Visit: No Qualifiers: Esophagitis presence: without esophagitis Qualified Code(s): K21.9 - Gastro-esophageal reflux disease without esophagitis - Problem List Review Problem List Initiated/Reviewed/Updated: No - My Orders Last 24 Hours: My Active Orders 06/12/20 08:21 Height and Weight [RC] DAILY Oxygen Therapy [RC] PRN Up With Assistance [RC] ASDIRECTED VTE/DVT Education [RC] PER UNIT ROUTINE Vital Signs [RC] Q4H Ondansetron [Zofran] 4 mg IVPUSH Q4H PRN Resuscitation Status Routine 06/12/20 08:22 Intake and Output Strict [RC] ASDIRECTED 06/12/20 08:23 MAGNESIUM [CHEM] Routine 06/12/20 09:00 Potassium Chloride [Klor-Con 10] 40 meq PO BID 06/13/20 05:11 BASIC METABOLIC PANEL,BMP [CHEM] AM CBC WITH AUTO DIFF [HEME] AM MAGNESIUM [CHEM] AM 06/14/20 05:11 BASIC METABOLIC PANEL,BMP [CHEM] AM CBC WITH AUTO DIFF [HEME] AM MAGNESIUM [CHEM] AM 06/15/20 05:11 BASIC METABOLIC PANEL,BMP [CHEM] AM CBC WITH AUTO DIFF [HEME] AM MAGNESIUM [CHEM] AM - Plan Plan:: 65 yo female admitted for anasarca 1. Anasarca likely secondary to cirrhosis -Cirrhosis is new diagnosis noted on right upper quadrant ultrasound. -Hepatitis panel was previously completed 05/08/2020 which shows previous exposure to hepatitis B -Reports she has had intermittent alcohol use throughout her life reporting that sometimes she would drink 3-4 alcoholic drinks daily for long periods of time. No other heavy alcohol use. Currently does not drink any alcohol -We will continue diuresis with Lasix 40 mg IV twice a day -We will add spironolactone 25 mg daily -Monitor blood pressure -Send referral to GI specialist for cirrhosis -Monitor electrolytes daily and replace as needed, noted today hypokalemia as well as hypomagnesium -Echo pending to evaluate for heart failure 2. Leukocytosis -Consider UTI and pneumonia. -Continue Rocephin and azithromycin -UC pending -Concern for cellulitis and potentially osteomyelitis to second toe on left foot. Will add vancomycin and obtain MRI to rule out osteomyelitis -Wound care consulted for left foot heel ulcer as well as toe ulcer -Has had chronic diarrhea will send stools has history of previous C. difficile infection 3. DM type I -Wears continuous glucose monitor -Continue NovoLog sliding scale -We will add on long-acting home medication at bedtime -Continue diabetic diet 4. CAD/PAD/hypertension -Continue Plavix and aspirin -Monitor blood pressure closely as adding spironolactone and Lasix -Continue losartan, Zetia, Imdur 5. Chronic pain: Continue home Tylenol # 4 6. COPD -Continue home inhalers -Stable VTE prophylaxis: Heparin CODE STATUS: Full code Dispo 2 days pending improvement
[2020-06-12] MEDS ORDERED: Furosemide 40 MG in Sodium Chloride 0.9% 50 ML IV SCH (09:00)
--- NOTE | 2020-06-12 09:08 | US ---
Indication: Anasarca Technique: Sonography of the abdomen was performed limited to the structure is discussed below. Comparison: No prior ultrasounds for comparison. Findings: The liver measures 13.9 centimeters. Echogenicity is heterogeneous and nodular suggesting an infiltrative process. The 2 most likely diagnoses are chronic hepatitis and/or cirrhosis though other diffuse infiltrative process is possible. No discrete focal mass or biliary ductal dilatation. The gallbladder surgically absent. The common duct measures 4.7 millimeters which is normal Effusions are noted above the diaphragms and there is ascites. The pancreas is poorly seen due to overlying bowel gas. The spleen is not enlarged measuring 6 centimeters. It would be somewhat unusual to have ascites on the basis hepatic disease without splenomegaly indicating portal hypertension. The right kidney measures 8.3 centimeters which is smaller than average. The left kidney measures 9.5 centimeters. No hydronephrosis or mass. There is free fluid in the pelvis Impression: 1. Ascites and bilateral pleural effusions. 2. Abnormal appearing liver. It is heterogeneous with vague nodularity but no discrete focal mass. The most common cause for this appearance would be chronic hepatitis and/or cirrhosis. Other infiltrative disorders are possible. No biliary ductal dilatation. 3. Gallbladder surgically absent. No extrahepatic biliary ductal dilatation. 4. Poorly visualized pancreas. 5. No focal mass or hydronephrosis associated with the kidneys. 6. Normal appearing spleen morphologically. The spleen is not enlarged. Dictated by Zachery Gonzales MD @ Jun 12 2020 9:00AM Signed by Dr. Zachery Gonzales @ Jun 12 2020 9:06AM
[2020-06-12] MEDS: Aspirin 81 MG Tab.Chew PO SCH (09:14)
[2020-06-12] MEDS: Isosorbide Mononitrate 30 MG Tab.ER PO SCH (09:14)
[2020-06-12] MEDS: Clopidogrel 75 MG Tab PO SCH (09:15)
[2020-06-12] MEDS: Ezetimibe 10 MG Tab PO SCH (09:15)
[2020-06-12] MEDS: amLODIPine 5 MG Tab PO SCH (09:15)
[2020-06-12] MEDS: Pantoprazole 40 MG Tab.CR PO SCH (09:15)
[2020-06-12] MEDS: Potassium Chloride 10 MEQ Tab.ER PO SCH ×2 (09:16→20:19)
[2020-06-12] MEDS: Losartan 50 MG Tab PO SCH (09:16)
[2020-06-12] MEDS: Furosemide 40 MG/4 ML VIAL IV SCH ×2 (09:18→20:19)
[2020-06-12] MEDS: Insulin Aspart 100 Units/ML 3 ML Pen SUBCUT SCH ×3 (09:29→17:27)
[2020-06-12] MEDS ORDERED: Magnesium Sulfate/Water 2 GM/50 ML BAG IV ONE (11:17)
[2020-06-12] MEDS ORDERED: Insulin Aspart 100 Units/ML 3 ML Pen SUBCUT SCH (11:30)
[2020-06-12] MEDS ORDERED: Albuterol HFA 18 Gm Inhaler INH PRN (12:17)
[2020-06-12] MEDS: Spironolactone 25 MG Tab PO SCH (13:36)
[2020-06-12] MEDS: Heparin Sodium 5,000 Units/ML Vial SUBCUT SCH (13:38)
--- NOTE | 2020-06-12 14:04 | MR ---
INDICATION: Diabetic foot ulcer. COMPARISON: None. TECHNIQUE: Axial PD and STIR, coronal T1 and STIR and sagittal STIR sequences left foot without contrast. FINDINGS: Moderate motion degrades image quality. Profound diffuse fatty atrophy of visualized muscles. Diffuse soft tissue edema. No focal fluid collection. Show skin ulcer suggested at the dorsal medial midfoot over the 1st cuneiform. No osteomyelitis. No septic arthritis. Nonspecific T2 marrow edema at the medial talar head could be contusion. No T1 marrow signal abnormality. Intact low signal cortex. Physiologic fluid in the ankle and posterior subtalar joint. Minor patchy edema at the dorsal margin of the anterior process of the calcaneus. Some minimal edema at the 2nd cuneiform. IMPRESSION: No osteomyelitis, septic arthritis or soft tissue abscess. Motion degrades image quality and diagnostic sensitivity. Dictated by Kirt Gates MD @ Jun 12 2020 1:43PM Signed by Dr. Kirt Gates @ Jun 12 2020 2:03PM
[2020-06-12] MEDS: ANORO ELLIPTA INH SCH ×2 (15:20→20:22)
[2020-06-12] MEDS: Sodium Bicarbonate 650 MG Tab PO SCH (17:24)
[2020-06-12] MEDS ORDERED: Insulin Glargine,Human Rec. Analog 100 Units/ML 3 ML Pen SUBCUT SCH (21:00)
[2020-06-12] MEDS: Insulin Glargine,Human Rec. Analog 100 Units/ML 3 ML Pen SUBCUT SCH (22:18)
[2020-06-13] MEDS: cefTRIAXone 1 GM in Premix Bag 1 BAG IV SCH (01:20)
[2020-06-13] MEDS: Heparin Sodium 5,000 Units/ML Vial SUBCUT SCH ×2 (01:20→13:15)
[2020-06-13] MEDS: Azithromycin 500 MG in Sodium Chloride 0.9% 250 ML IV SCH (01:20)
[2020-06-13] MEDS: TYLENOL PO PRN ×5 (04:03→21:31)
[2020-06-13 06:10] LABS: BLOOD UREA NITROGEN,BUN 10 mg/dL (7.0-18.0); CARBON DIOXIDE,CO2 33.9 mmol/L (21.0-32.0); CHLORIDE,CL 103 mmol/L (98-107); GLUCOSE RANDOM 97 mg/dL (74-106); POTASSIUM,K 4.1 mmol/L (3.5-5.1); SODIUM,NA 138 mmol/L (136-145)
[2020-06-13] MEDS: Propranolol 20 MG Tab PO SCH ×3 (06:40→22:55)
[2020-06-13] MEDS: Insulin Aspart 100 Units/ML 3 ML Pen SUBCUT SCH ×3 (07:29→17:59)
[2020-06-13] MEDS ORDERED: Potassium Chloride 20 MEQ Tab.ER PO ONE (08:08)
--- NOTE | 2020-06-13 08:14 | PCM.PN ---
- General Info Date of Service: 06/13/20 Admission Dx/Problem (Free Text): Admission Diagnosis/Problem Admission Diagnosis/Problem Ascites Subjective Update: Reports she feels her swelling is about the same. Pain is stable and controlled with Tylenol #4. Denies any chest pain or shortness of breath. Reports she is concerned about her toe. She will have follow-up with Dr. Villegas after hospitalization. Denies any fevers or chills. She is alert and oriented radha erating diet and drinking well. She was counseled on limiting oral intake as we attempt to diurese she was understanding of this. Functional Status: Reports: Pain Controlled, Tolerating Diet, Ambulating - Review of Systems General: Reports: Weakness ([place]), Malaise HEENT: Reports: No Symptoms. Denies: Headaches, Sore Throat, Visual Changes Pulmonary: Reports: No Symptoms. Denies: Shortness of Breath Cardiovascular: Reports: No Symptoms. Denies: Chest Pain Gastrointestinal: Reports: Other (Distention and swelling to abdominal wall). Denies: Abdominal Pain 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: Reports: Foot Pain Skin: Reports: Other (Erythema improving to left second toe) Neurological: Reports: No Symptoms Psychiatric: Reports: No Symptoms - Patient Data Vitals - Most Recent: Last Vital Signs Temp 97.8 F 06/13/20 04:14 Pulse 66 06/13/20 04:14 Resp 18 06/13/20 04:14 BP 114/53 L 06/13/20 04:14 Pulse Ox 94 L 06/13/20 04:14 Weight - Most Recent: 48.5 kg I&O - Last 24 Hours: Intake & Output 06/12/20 06/13/20 06/13/20 22:59 06:59 14:59 Intake Total 1150 800 Output Total 500 625 Balance 650 175 Lab Results Last 24 Hours: Laboratory Results - last 24 hr 06/12/20 06/12/20 06/12/20 Range/Units 04:50 11:54 17:27 WBC (4.0-11.0) K/uL RBC (4.30-5.90) M/uL Hgb (12.0-16.0) g/dL Hct (36.0-46.0) % MCV (80.0-98.0) fL MCH (27.0-32.0) pg MCHC (31.0-37.0) g/dL RDW Std Deviation (28.0-62.0) fl RDW Coeff of Hesham (11.0-15.0) % Plt Count (150-400) K/uL MPV (7.40-12.00) fL Neut % (Auto) (48.0-80.0) % Lymph % (Auto) (16.0-40.0) % Gila % (Auto) (0.0-15.0) % Eos % (Auto) (0.0-7.0) % Baso % (Auto) (0.0-1.5) % Neut # (Auto) (1.4-5.7) K/uL Lymph # (Auto) (0.6-2.4) K/uL Gila # (Auto) (0.0-0.8) K/uL Eos # (Auto) (0.0-0.7) K/uL Baso # (Auto) (0.0-0.1) K/uL Nucleated RBC % /100WBC Nucleated RBCs # K/uL Sodium (136-145) mmol/L Potassium (3.5-5.1) mmol/L Chloride (98-107) mmol/L Carbon Dioxide (21.0-32.0) mmol/L BUN (7.0-18.0) mg/dL Creatinine (0.6-1.0) mg/dL Est Cr Clr Drug Dosing mL/min Estimated GFR (MDRD) ml/min Glucose (74-106) mg/dL POC Glucose 164 H 170 H (60-110) mg/dL Calcium (8.5-10.1) mg/dL Magnesium 1.6 L (1.8-2.4) mg/dL Total Bilirubin (0.2-1.0) mg/dL AST (15-37) IU/L ALT (14-63) IU/L Alkaline Phosphatase (46-116) U/L Total Protein (6.4-8.2) g/dL Albumin (3.4-5.0) g/dL Globulin (2.6-4.0) g/dL Albumin/Globulin Ratio (0.9-1.6) 06/12/20 06/13/20 06/13/20 Range/Units 20:31 05:15 05:15 WBC 12.38 H (4.0-11.0) K/uL RBC 3.41 L (4.30-5.90) M/uL Hgb 10.4 L (12.0-16.0) g/dL Hct 31.6 L (36.0-46.0) % MCV 92.7 (80.0-98.0) fL MCH 30.5 (27.0-32.0) pg MCHC 32.9 (31.0-37.0) g/dL RDW Std Deviation 56.4 (28.0-62.0) fl RDW Coeff of Hesham 17 H (11.0-15.0) % Plt Count 382 (150-400) K/uL MPV 9.90 (7.40-12.00) fL Neut % (Auto) 65.7 (48.0-80.0) % Lymph % (Auto) 21.1 (16.0-40.0) % Gila % (Auto) 11.5 (0.0-15.0) % Eos % (Auto) 1.5 (0.0-7.0) % Baso % (Auto) 0.2 (0.0-1.5) % Neut # (Auto) 8.1 H (1.4-5.7) K/uL Lymph # (Auto) 2.6 H (0.6-2.4) K/uL Gila # (Auto) 1.4 H (0.0-0.8) K/uL Eos # (Auto) 0.2 (0.0-0.7) K/uL Baso # (Auto) 0.0 (0.0-0.1) K/uL Nucleated RBC % 0.0 /100WBC Nucleated RBCs # 0 K/uL Sodium 138 (136-145) mmol/L Potassium 4.1 (3.5-5.1) mmol/L Chloride 103 (98-107) mmol/L Carbon Dioxide 33.9 H (21.0-32.0) mmol/L BUN 10 (7.0-18.0) mg/dL Creatinine 0.9 (0.6-1.0) mg/dL Est Cr Clr Drug Dosing 47.89 mL/min Estimated GFR (MDRD) > 60.0 ml/min Glucose 97 (74-106) mg/dL POC Glucose 188 H (60-110) mg/dL Calcium 7.0 L (8.5-10.1) mg/dL Magnesium 1.9 (1.8-2.4) mg/dL Total Bilirubin 0.4 (0.2-1.0) mg/dL AST 23 (15-37) IU/L ALT 24 (14-63) IU/L Alkaline Phosphatase 143 H (46-116) U/L Total Protein 4.7 L (6.4-8.2) g/dL Albumin 1.4 L (3.4-5.0) g/dL Globulin 3.3 (2.6-4.0) g/dL Albumin/Globulin Ratio 0.4 L (0.9-1.6) 06/13/20 Range/Units 06:42 WBC (4.0-11.0) K/uL RBC (4.30-5.90) M/uL Hgb (12.0-16.0) g/dL Hct (36.0-46.0) % MCV (80.0-98.0) fL MCH (27.0-32.0) pg MCHC (31.0-37.0) g/dL RDW Std Deviation (28.0-62.0) fl RDW Coeff of Hesham (11.0-15.0) % Plt Count (150-400) K/uL MPV (7.40-12.00) fL Neut % (Auto) (48.0-80.0) % Lymph % (Auto) (16.0-40.0) % Gila % (Auto) (0.0-15.0) % Eos % (Auto) (0.0-7.0) % Baso % (Auto) (0.0-1.5) % Neut # (Auto) (1.4-5.7) K/uL Lymph # (Auto) (0.6-2.4) K/uL Gila # (Auto) (0.0-0.8) K/uL Eos # (Auto) (0.0-0.7) K/uL Baso # (Auto) (0.0-0.1) K/uL Nucleated RBC % /100WBC Nucleated RBCs # K/uL Sodium (136-145) mmol/L Potassium (3.5-5.1) mmol/L Chloride (98-107) mmol/L Carbon Dioxide (21.0-32.0) mmol/L BUN (7.0-18.0) mg/dL Creatinine (0.6-1.0) mg/dL Est Cr Clr Drug Dosing mL/min Estimated GFR (MDRD) ml/min Glucose (74-106) mg/dL POC Glucose 82 (60-110) mg/dL Calcium (8.5-10.1) mg/dL Magnesium (1.8-2.4) mg/dL Total Bilirubin (0.2-1.0) mg/dL AST (15-37) IU/L ALT (14-63) IU/L Alkaline Phosphatase (46-116) U/L Total Protein (6.4-8.2) g/dL Albumin (3.4-5.0) g/dL Globulin (2.6-4.0) g/dL Albumin/Globulin Ratio (0.9-1.6) Med Orders - Current: Current Medications Acetaminophen (Tylenol) 325 mg PO Q6H PRN PRN Reason: Pain Albuterol (Ventolin Hfa) 0 gm INH Q4H PRN PRN Reason: Shortness of Breath Amlodipine Besylate (Norvasc) 5 mg PO DAILY [facility] Last Admin: 06/12/20 09:15 Dose: 5 mg Documented by: Aspirin (Aspirin) 81 mg PO DAILY [facility] Last Admin: 06/12/20 09:14 Dose: 81 mg Documented by: Carisoprodol (Soma) 350 mg PO TID PRN PRN Reason: Muscle Spasm Last Admin: 06/12/20 21:02 Dose: 350 mg Documented by: Clopidogrel Bisulfate (Plavix) 75 mg PO DAILY [facility] Last Admin: 06/12/20 09:15 Dose: 75 mg Documented by: Dextrose/Water (Dextrose 50% In Water) 50 ml IV ASDIRECTED PRN PRN Reason: Hypoglycemia Ezetimibe (Zetia) 10 mg PO DAILY [facility] Last Admin: 06/12/20 09:15 Dose: 10 mg Documented by: Fludrocortisone Acetate (Florinef) 0.1 mg PO DAILY [facility] Furosemide (Lasix) 40 mg IV BID [facility] Last Admin: 06/12/20 20:19 Dose: 40 mg Documented by: Glucagon (Glucagen) 1 mg IM ASDIRECTED PRN PRN Reason: Hypoglycemia Heparin Sodium (Porcine) (Heparin Sodium) 5,000 units SUBCUT Q12H [facility] Last Admin: 06/13/20 01:20 Dose: 5,000 units Documented by: Ceftriaxone Sodium/Dextrose 1 (gm/ Premix) 50 mls @ 100 mls/hr IV Q24H [facility] Last Admin: 06/13/20 01:20 Dose: 100 mls/hr Documented by: Azithromycin 500 mg/ Sodium (Chloride) 250 mls @ 250 mls/hr IV Q24H [facility] Last Admin: 06/13/20 01:20 Dose: 250 mls/hr Documented by: Vancomycin HCl 1 gm/ Sodium (Chloride) 250 mls @ 166.667 mls/hr IV Q24H [facility] Insulin Aspart (Novolog) 0 unit SUBCUT TIDAC [facility]; Protocol Last Admin: 06/13/20 07:29 Dose: Not Given Documented by: Insulin Glargine (Lantus Solostar) 4 units SUBCUT BEDTIME [facility] Last Admin: 06/12/20 22:18 Dose: 4 units Documented by: Isosorbide Mononitrate (Imdur) 30 mg PO DAILY [facility] Last Admin: 06/12/20 09:14 Dose: 30 mg Documented by: Losartan Potassium (Cozaar) 25 mg PO DAILY [facility] Last Admin: 06/12/20 09:16 Dose: 25 mg Documented by: Ondansetron HCl (Zofran) 4 mg IVPUSH Q4H PRN PRN Reason: Nausea Pantoprazole Sodium (Protonix) 40 mg PO DAILY [facility] Last Admin: 06/12/20 09:15 Dose: 40 mg Documented by: Patient's Own MedicationTylenol #4 2 each PO Q4HR PRN PRN Reason: Pain Last Admin: 06/13/20 04:03 Dose: 2 each Documented by: Anoro Ellipta 0 each INH BID [facility] Last Admin: 06/12/20 20:22 Dose: Not Given Documented by: Propranolol HCl (Inderal) 10 mg PO TID [facility] Last Admin: 06/13/20 06:40 Dose: 10 mg Documented by: Sodium Bicarbonate (Sodium Bicarbonate) 650 mg PO BIDMEALS [facility] Last Admin: 06/12/20 17:24 Dose: 650 mg Documented by: Spironolactone (Aldactone) 25 mg PO DAILY [facility] Last Admin: 06/12/20 13:36 Dose: 25 mg Documented by: Discontinued Medications Fentanyl (Sublimaze) 50 mcg IVPUSH ONETIME ONE Stop: 06/11/20 16:10 Last Admin: 06/11/20 16:54 Dose: 50 mcg Documented by: Furosemide (Lasix) 40 mg IVPUSH NOW ONE Stop: 06/11/20 19:59 Last Admin: 06/11/20 20:05 Dose: 40 mg Documented by: Magnesium Sulfate (Magnesium Sulfate In Water Premix) 2 gm in 50 mls @ 50 mls/hr IV ONETIME ONE Stop: 06/12/20 12:16 Last Admin: 06/12/20 13:39 Dose: 50 mls/hr Documented by: Vancomycin HCl 1 gm/ Sodium (Chloride) 250 mls @ 166.667 mls/hr IV Q24H [facility] Last Admin: 06/12/20 14:53 Dose: 166.667 mls/hr Documented by: Insulin Aspart (Novolog) 0 unit SUBCUT TIDAC [facility]; Protocol Last Admin: 06/12/20 11:15 Dose: Not Given Documented by: Insulin Aspart (Novolog) 0 unit SUBCUT TIDAC [facility]; Protocol Last Admin: 06/12/20 09:26 Dose: 4 units Documented by: Insulin Glargine (Lantus Solostar) 15 units SUBCUT BEDTIME [facility] Last Admin: 06/13/20 02:48 Dose: Not Given Documented by: Iopamidol (Isovue Multipack-370 (76%)) 80 ml IVPUSH ONETIME STA Stop: 06/11/20 16:47 Last Admin: 06/11/20 16:54 Dose: 80 ml Documented by: Morphine Sulfate (Morphine) 2 mg IVPUSH ONETIME ONE Stop: 06/11/20 18:54 Last Admin: 06/11/20 18:57 Dose: 2 mg Documented by: Ondansetron HCl (Zofran) 4 mg IVPUSH ONETIME ONE Stop: 06/11/20 16:10 Last Admin: 06/11/20 16:54 Dose: 4 mg Documented by: Potassium Chloride (Klor-Con 10) 40 meq PO BID [facility] Last Admin: 06/12/20 20:19 Dose: 40 meq Documented by: Potassium Chloride (Klor-Con M20) 20 meq PO ONETIME ONE Stop: 06/13/20 08:09 Vancomycin HCl (Pharmacy To Dose - Vancomycin) 1 dose .XX ONETIME ONE Stop: 06/12/20 11:41 Last Admin: 06/12/20 14:52 Dose: Not Given Documented by: - Exam General: Alert, Oriented, Cooperative, No Acute Distress Neck: Supple Lungs: Clear to Auscultation, Normal Respiratory Effort Cardiovascular: Regular Rate, Regular Rhythm, No Murmurs GI/Abdominal Exam: Normal Bowel Sounds, Soft, Distended, Other (Ascites) Back Exam: Normal Inspection, Full Range of Motion Extremities: Other (Significant anasarca noted to arms legs trunk and perineal region stable no worsening) Wound/Incisions: Erythema Improving (Erythema is improving to left second toe. Heel pressure sore stable nonblanchable) Neurological: No New Focal Deficit Psy/Mental Status: Alert, Normal Affect, Normal Mood Sepsis Event Note - Evaluation Sepsis Screening Result: No Definite Risk - Focused Exam Vital Signs: Vital Signs Temp Pulse Resp BP Pulse Ox 06/13/20 04:14 97.8 F 66 18 114/53 L 94 L 06/13/20 00:00 97.1 F 66 18 132/56 L 94 L - Problem List & Annotations (1) Cirrhosis SNOMED Code(s): 34182563 Code(s): K74.60 - UNSPECIFIED CIRRHOSIS OF LIVER Status: Acute Current Visit: Yes Qualifiers: Hepatic cirrhosis type: alcoholic cirrhosis (2) Anasarca SNOMED Code(s): 165370543, 437449228 Code(s): R60.1 - GENERALIZED EDEMA Status: Acute Current Visit: Yes (3) Diabetic foot ulcer SNOMED Code(s): 970138469 Code(s): E11.621 - TYPE 2 DIABETES MELLITUS WITH FOOT ULCER; L97.509 - NON- PRESSURE CHRONIC ULCER OTH PRT UNSP FOOT W UNSP SEVERITY Status: Acute Current Visit: Yes Qualifiers: Diabetic foot ulcer location: heel Diabetes mellitus type: type 1 Laterality: left Non-pressure ulcer stage: limited to breakdown of skin Qualified Code(s): E10.621 - Type 1 diabetes mellitus with foot ulcer; L97.421 - Non-pressure chronic ulcer of left heel and midfoot limited to breakdown of skin (4) Hypoproteinemia SNOMED Code(s): 1147355 Code(s): E77.8 - OTHER DISORDERS OF GLYCOPROTEIN METABOLISM Status: Acute Current Visit: Yes (5) Leukocytosis SNOMED Code(s): 952699167, 183947098 Code(s): D72.829 - ELEVATED WHITE BLOOD CELL COUNT, UNSPECIFIED Status: Acute Priority: High Current Visit: Yes Qualifiers: Leukocytosis type: unspecified Qualified Code(s): D72.829 - Elevated white blood cell count, unspecified (6) Gait instability SNOMED Code(s): 53064995 Code(s): R26.81 - UNSTEADINESS ON FEET Status: Acute Current Visit: No (7) CAD (coronary artery disease) SNOMED Code(s): 48862040 Code(s): I25.10 - ATHSCL HEART DISEASE OF [place] CORONARY ARTERY W/O ANG PCTRS Status: Chronic Current Visit: No (8) COPD (chronic obstructive pulmonary disease) SNOMED Code(s): 44989809 Code(s): J44.9 - CHRONIC OBSTRUCTIVE PULMONARY DISEASE, UNSPECIFIED Status: Chronic Current Visit: No Qualifiers: COPD type: unspecified COPD Qualified Code(s): J44.9 - Chronic obstructive pulmonary disease, unspecified (9) Chronic pain SNOMED Code(s): 02952275 Code(s): G89.29 - OTHER CHRONIC PAIN Status: Chronic Current Visit: No (10) Diabetes mellitus type 1, controlled, insulin dependent SNOMED Code(s): 47738615, 438775251 Code(s): E10.9 - TYPE 1 DIABETES MELLITUS WITHOUT COMPLICATIONS Status: Chronic Priority: High Current Visit: No (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 SNOMED Code(s): 96022908 Code(s): E11.620 - TYPE 2 DIABETES MELLITUS WITH DIABETIC DERMATITIS Status: Chronic Priority: High Current Visit: No (12) HTN (hypertension) SNOMED Code(s): 01983836 Code(s): I10 - ESSENTIAL (PRIMARY) HYPERTENSION Status: Chronic Current Visit: No Qualifiers: Hypertension type: essential hypertension Qualified Code(s): I10 - Essential (primary) hypertension (13) GERD (gastroesophageal reflux disease) SNOMED Code(s): 640612527 Code(s): K21.9 - GASTRO-ESOPHAGEAL REFLUX DISEASE WITHOUT ESOPHAGITIS Status: Chronic Current Visit: No Qualifiers: Esophagitis presence: without esophagitis Qualified Code(s): K21.9 - Gastro-esophageal reflux disease without esophagitis - Problem List Review Problem List Initiated/Reviewed/Updated: Yes - My Orders Last 24 Hours: My Active Orders 06/12/20 08:21 Height and Weight [RC] DAILY Oxygen Therapy [RC] PRN Up With Assistance [RC] ASDIRECTED VTE/DVT Education [RC] PER UNIT ROUTINE Vital Signs [RC] Q4H Ondansetron [Zofran] 4 mg IVPUSH Q4H PRN Resuscitation Status Routine 06/12/20 08:22 Intake and Output Strict [RC] ASDIRECTED 06/12/20 11:45 Spironolactone [Aldactone] 25 mg PO DAILY 06/12/20 12:17 Albuterol [Ventolin HFA] 0 gm INH Q4H PRN 06/12/20 12:18 RT Post Treatment Assessment [RC] Click to Edit RT Pre-Treatment Assessment [RC] Click to Edit 06/12/20 12:30 Patient's Own Medication [Ptom] 0 each INH BID 06/12/20 13:00 Heparin Sodium 5,000 units SUBCUT Q12H 06/12/20 15:56 Consult to Case Management/[employer] E[employer] Consultant [CONS] Routine 06/12/20 16:07 PT Evaluation and Treatment [CONS] Routine 06/12/20 17:00 Sodium Bicarbonate 650 mg PO BIDMEALS 06/13/20 09:00 Fludrocortisone [Florinef] 0.1 mg PO DAILY 06/13/20 15:00 Vancomycin [Vancocin] 1 gm Sodium Chloride 0.9% [Normal Saline (AdvBag)] 250 ml IV Q24H 06/14/20 05:11 CBC WITH AUTO DIFF [HEME] AM COMPREHENSIVE METABOLIC PN,CMP [CHEM] AM MAGNESIUM [CHEM] AM 06/14/20 14:00 VANCOMYCIN TROUGH [CHEM] Routine 06/15/20 05:11 CBC WITH AUTO DIFF [HEME] AM COMPREHENSIVE METABOLIC PN,CMP [CHEM] AM MAGNESIUM [CHEM] AM - Plan Plan:: 65 yo female admitted for anasarca 1. Anasarca likely secondary to cirrhosis -Cirrhosis is new diagnosis noted on right upper quadrant ultrasound. -Discussed with Pito, significant other he reports patient continues to drink on a daily basis 2-3 drinks. He as well as Zakiya were counseled on the imperative nature of her sobriety as her liver will continue to fail if alcohol is introduced into her system. They verbalized understanding -We will increase Lasix today to 40 mg 3 times daily we will also increase fluid restriction to 1.8 L as she was positive balance overnight. -Continue spironolactone 25 mg daily -Monitor blood pressure -Send referral to GI specialist for cirrhosis -Monitor electrolytes daily and replace as needed, noted today hypokalemia as well as hypomagnesium -Echo pending to evaluate for heart failure 2. Leukocytosis -Improving -Continue Rocephin and azithromycin -UC mixed damion 10,000 colonies. -Cellulitis noted to left second toe MRI rules out osteomyelitis but does show soft tissue swelling continue vancomycin -Wound care consulted for left foot heel ulcer as well as toe ulcer-recommends follow-up with Dr. Angelo we will arrange this as an outpatient. Patient has previously seen Dr. Montanez for same wounds. -Has had chronic diarrhea will send stools has history of previous C. difficile infection has not had any further stools will monitor. 3. DM type I -Wears continuous glucose monitor -Continue NovoLog sliding scale -We will add on long-acting home medication at bedtime -Continue diabetic diet 4. CAD/PAD/hypertension -Continue Plavix and aspirin -Monitor blood pressure closely as adding spironolactone and Lasix -Continue losartan, Zetia, Imdur 5. Chronic pain: Continue home Tylenol # 4 6. COPD -Continue home inhalers -Stable VTE prophylaxis: Heparin CODE STATUS: Full code Dispo 2 days pending improvement. Will likely be discharged home in the next few days. Will need home health on discharge to help manage medications and assist with ADLs.
[2020-06-13] MEDS: Fludrocortisone 0.1 MG Tab PO SCH (08:20)
[2020-06-13] MEDS: Losartan 50 MG Tab PO SCH (08:20)
[2020-06-13] MEDS: amLODIPine 5 MG Tab PO SCH (08:21)
[2020-06-13] MEDS: Ezetimibe 10 MG Tab PO SCH (08:22)
[2020-06-13] MEDS: Pantoprazole 40 MG Tab.CR PO SCH (08:22)
[2020-06-13] MEDS: Spironolactone 25 MG Tab PO SCH (08:22)
[2020-06-13] MEDS: Isosorbide Mononitrate 30 MG Tab.ER PO SCH (08:23)
[2020-06-13] MEDS: Sodium Bicarbonate 650 MG Tab PO SCH ×2 (08:23→17:00)
[2020-06-13] MEDS: Clopidogrel 75 MG Tab PO SCH (08:23)
[2020-06-13] MEDS: Aspirin 81 MG Tab.Chew PO SCH (08:23)
[2020-06-13] MEDS: Furosemide 40 MG/4 ML VIAL IV SCH ×3 (08:27→21:31)
[2020-06-13] MEDS: ANORO ELLIPTA INH SCH ×2 (08:34→21:32)
[2020-06-13] MEDS ORDERED: LORazepam 0.5 MG Tab PO PRN (13:12)
[2020-06-13] MEDS: Folic Acid 1 MG Tab PO SCH (20:26)
[2020-06-13] MEDS: Thiamine 100 MG Tab PO SCH (20:31)
[2020-06-13] MEDS: Insulin Glargine,Human Rec. Analog 100 Units/ML 3 ML Pen SUBCUT SCH (21:31)
[2020-06-14] MEDS: Heparin Sodium 5,000 Units/ML Vial SUBCUT SCH ×2 (00:19→13:10)
[2020-06-14] MEDS: cefTRIAXone 1 GM in Premix Bag 1 BAG IV SCH ×2 (00:21→23:53)
[2020-06-14] MEDS: Azithromycin 500 MG in Sodium Chloride 0.9% 250 ML IV SCH (00:22)
[2020-06-14] MEDS: TYLENOL PO PRN ×4 (05:42→21:32)
[2020-06-14] MEDS: Furosemide 40 MG/4 ML VIAL IV SCH ×2 (05:59→15:24)
[2020-06-14] MEDS: Propranolol 20 MG Tab PO SCH ×3 (06:00→21:17)
[2020-06-14 06:48] LABS: BLOOD UREA NITROGEN,BUN 7 mg/dL (7.0-18.0); CARBON DIOXIDE,CO2 35.2 mmol/L (21.0-32.0); CHLORIDE,CL 103 mmol/L (98-107); GLUCOSE RANDOM 81 mg/dL (74-106); POTASSIUM,K 4.4 mmol/L (3.5-5.1); SODIUM,NA 141 mmol/L (136-145)
[2020-06-14] MEDS: Insulin Aspart 100 Units/ML 3 ML Pen SUBCUT SCH ×3 (07:19→17:22)
[2020-06-14] MEDS: Losartan 50 MG Tab PO SCH (08:17)
[2020-06-14] MEDS: Fludrocortisone 0.1 MG Tab PO SCH (08:19)
[2020-06-14] MEDS: Pantoprazole 40 MG Tab.CR PO SCH (08:19)
[2020-06-14] MEDS: Aspirin 81 MG Tab.Chew PO SCH (08:19)
[2020-06-14] MEDS: Sodium Bicarbonate 650 MG Tab PO SCH ×2 (08:19→17:15)
[2020-06-14] MEDS: Spironolactone 25 MG Tab PO SCH (08:20)
[2020-06-14] MEDS: amLODIPine 5 MG Tab PO SCH (08:20)
[2020-06-14] MEDS: Isosorbide Mononitrate 30 MG Tab.ER PO SCH (08:20)
[2020-06-14] MEDS: Ezetimibe 10 MG Tab PO SCH (08:21)
[2020-06-14] MEDS: ANORO ELLIPTA INH SCH ×2 (08:21→21:19)
[2020-06-14] MEDS: Clopidogrel 75 MG Tab PO SCH (08:21)
[2020-06-14] MEDS ORDERED: Bumetanide 1 MG/4 ML MDV IVPUSH SCH (14:34)
[2020-06-14] MEDS ORDERED: Magnesium Sulfate/Water 2 GM/50 ML Premix Bag IV ONE (14:35)
--- NOTE | 2020-06-14 14:39 | PCM.PN ---
- General Info Date of Service: 06/14/20 - Review of Systems Systems Review Comment:: reports abdominal fullness especially after eating, reports feeling nauseous immediately after lasix infusions - Patient Data Vitals - Most Recent: Last Vital Signs Temp 36.4 C 06/14/20 11:43 Pulse 64 06/14/20 11:43 Resp 17 06/14/20 11:43 BP 168/70 H 06/14/20 11:43 Pulse Ox 98 06/14/20 11:43 Weight - Most Recent: 47 kg I&O - Last 24 Hours: Intake & Output 06/13/20 06/14/20 06/14/20 22:59 06:59 14:59 Intake Total 1000 940 Output Total 1450 850 Balance -450 90 Lab Results Last 24 Hours: Laboratory Results - last 24 hr 06/13/20 06/13/20 06/13/20 Range/Units 17:01 21:14 23:41 WBC (4.0-11.0) K/uL RBC (4.30-5.90) M/uL Hgb (12.0-16.0) g/dL Hct (36.0-46.0) % MCV (80.0-98.0) fL MCH (27.0-32.0) pg MCHC (31.0-37.0) g/dL RDW Std Deviation (28.0-62.0) fl RDW Coeff of Hesham (11.0-15.0) % Plt Count (150-400) K/uL MPV (7.40-12.00) fL Neut % (Auto) (48.0-80.0) % Lymph % (Auto) (16.0-40.0) % [place] % (Auto) (0.0-15.0) % Eos % (Auto) (0.0-7.0) % Baso % (Auto) (0.0-1.5) % Neut # (Auto) (1.4-5.7) K/uL Lymph # (Auto) (0.6-2.4) K/uL [place] # (Auto) (0.0-0.8) K/uL Eos # (Auto) (0.0-0.7) K/uL Baso # (Auto) (0.0-0.1) K/uL Nucleated RBC % /100WBC Nucleated RBCs # K/uL Sodium (136-145) mmol/L Potassium (3.5-5.1) mmol/L Chloride (98-107) mmol/L Carbon Dioxide (21.0-32.0) mmol/L BUN (7.0-18.0) mg/dL Creatinine (0.6-1.0) mg/dL Est Cr Clr Drug Dosing mL/min Estimated GFR (MDRD) ml/min Glucose (74-106) mg/dL POC Glucose 226 H 85 114 H (60-110) mg/dL Calcium (8.5-10.1) mg/dL Magnesium (1.8-2.4) mg/dL Total Bilirubin (0.2-1.0) mg/dL AST (15-37) IU/L ALT (14-63) IU/L Alkaline Phosphatase (46-116) U/L Total Protein (6.4-8.2) g/dL Albumin (3.4-5.0) g/dL Globulin (2.6-4.0) g/dL Albumin/Globulin Ratio (0.9-1.6) 06/14/20 06/14/20 06/14/20 Range/Units 03:01 03:46 05:35 WBC 10.90 (4.0-11.0) K/uL RBC 3.31 L (4.30-5.90) M/uL Hgb 10.0 L (12.0-16.0) g/dL Hct 30.9 L (36.0-46.0) % MCV 93.4 (80.0-98.0) fL MCH 30.2 (27.0-32.0) pg MCHC 32.4 (31.0-37.0) g/dL RDW Std Deviation 57.0 (28.0-62.0) fl RDW Coeff of Hehsam 17 H (11.0-15.0) % Plt Count 359 (150-400) K/uL MPV 10.20 (7.40-12.00) fL Neut % (Auto) 69.4 (48.0-80.0) % Lymph % (Auto) 17.1 (16.0-40.0) % [place] % (Auto) 12.1 (0.0-15.0) % Eos % (Auto) 1.1 (0.0-7.0) % Baso % (Auto) 0.3 (0.0-1.5) % Neut # (Auto) 7.6 H (1.4-5.7) K/uL Lymph # (Auto) 1.9 (0.6-2.4) K/uL [place] # (Auto) 1.3 H (0.0-0.8) K/uL Eos # (Auto) 0.1 (0.0-0.7) K/uL Baso # (Auto) 0.0 (0.0-0.1) K/uL Nucleated RBC % 0.0 /100WBC Nucleated RBCs # 0 K/uL Sodium (136-145) mmol/L Potassium (3.5-5.1) mmol/L Chloride (98-107) mmol/L Carbon Dioxide (21.0-32.0) mmol/L BUN (7.0-18.0) mg/dL Creatinine (0.6-1.0) mg/dL Est Cr Clr Drug Dosing mL/min Estimated GFR (MDRD) ml/min Glucose (74-106) mg/dL POC Glucose 52 L 89 (60-110) mg/dL Calcium (8.5-10.1) mg/dL Magnesium (1.8-2.4) mg/dL Total Bilirubin (0.2-1.0) mg/dL AST (15-37) IU/L ALT (14-63) IU/L Alkaline Phosphatase (46-116) U/L Total Protein (6.4-8.2) g/dL Albumin (3.4-5.0) g/dL Globulin (2.6-4.0) g/dL Albumin/Globulin Ratio (0.9-1.6) 06/14/20 06/14/20 06/14/20 Range/Units 05:35 05:45 11:34 WBC (4.0-11.0) K/uL RBC (4.30-5.90) M/uL Hgb (12.0-16.0) g/dL Hct (36.0-46.0) % MCV (80.0-98.0) fL MCH (27.0-32.0) pg MCHC (31.0-37.0) g/dL RDW Std Deviation (28.0-62.0) fl RDW Coeff of Hesham (11.0-15.0) % Plt Count (150-400) K/uL MPV (7.40-12.00) fL Neut % (Auto) (48.0-80.0) % Lymph % (Auto) (16.0-40.0) % [place] % (Auto) (0.0-15.0) % Eos % (Auto) (0.0-7.0) % Baso % (Auto) (0.0-1.5) % Neut # (Auto) (1.4-5.7) K/uL Lymph # (Auto) (0.6-2.4) K/uL [place] # (Auto) (0.0-0.8) K/uL Eos # (Auto) (0.0-0.7) K/uL Baso # (Auto) (0.0-0.1) K/uL Nucleated RBC % /100WBC Nucleated RBCs # K/uL Sodium 141 (136-145) mmol/L Potassium 4.4 (3.5-5.1) mmol/L Chloride 103 (98-107) mmol/L Carbon Dioxide 35.2 H (21.0-32.0) mmol/L BUN 7 (7.0-18.0) mg/dL Creatinine 0.8 (0.6-1.0) mg/dL Est Cr Clr Drug Dosing 52.71 mL/min Estimated GFR (MDRD) > 60.0 ml/min Glucose 81 (74-106) mg/dL POC Glucose 99 244 H (60-110) mg/dL Calcium 7.3 L (8.5-10.1) mg/dL Magnesium 1.7 L (1.8-2.4) mg/dL Total Bilirubin 0.3 (0.2-1.0) mg/dL AST 40 H (15-37) IU/L ALT 26 (14-63) IU/L Alkaline Phosphatase 138 H (46-116) U/L Total Protein 4.7 L (6.4-8.2) g/dL Albumin 1.4 L (3.4-5.0) g/dL Globulin 3.3 (2.6-4.0) g/dL Albumin/Globulin Ratio 0.4 L (0.9-1.6) Diony Results Last 24 Hours: Microbiology 06/11/20 18:24 Urine Culture - Final Urine, Silveira Cath ([place]) Normal Urogenital Vanessa YEAST Med Orders - Current: Current Medications Acetaminophen (Tylenol) 325 mg PO Q6H PRN PRN Reason: Pain Albuterol (Ventolin Hfa) 0 gm INH Q4H PRN PRN Reason: Shortness of Breath Amlodipine Besylate (Norvasc) 5 mg PO DAILY [facility] Last Admin: 06/14/20 08:20 Dose: 5 mg Documented by: Aspirin (Aspirin) 81 mg PO DAILY [facility] Last Admin: 06/14/20 08:19 Dose: 81 mg Documented by: Bumetanide (Bumex) 1 mg IVPUSH TID [facility] Carisoprodol (Soma) 350 mg PO TID PRN PRN Reason: Muscle Spasm Last Admin: 06/13/20 21:33 Dose: 350 mg Documented by: Clopidogrel Bisulfate (Plavix) 75 mg PO DAILY [facility] Last Admin: 06/14/20 08:21 Dose: 75 mg Documented by: Dextrose/Water (Dextrose 50% In Water) 50 ml IV ASDIRECTED PRN PRN Reason: Hypoglycemia Ezetimibe (Zetia) 10 mg PO DAILY [facility] Last Admin: 06/14/20 08:21 Dose: 10 mg Documented by: Fludrocortisone Acetate (Florinef) 0.1 mg PO DAILY [facility] Last Admin: 06/14/20 08:19 Dose: 0.1 mg Documented by: Folic Acid (Folic Acid) 1 mg PO BEDTIME [facility] Last Admin: 06/13/20 20:26 Dose: 1 mg Documented by: Glucagon (Glucagen) 1 mg IM ASDIRECTED PRN PRN Reason: Hypoglycemia Heparin Sodium (Porcine) (Heparin Sodium) 5,000 units SUBCUT Q12H [facility] Last Admin: 06/14/20 13:10 Dose: 5,000 units Documented by: Ceftriaxone Sodium/Dextrose 1 (gm/ Premix) 50 mls @ 100 mls/hr IV Q24H [facility] Last Admin: 06/14/20 00:21 Dose: 100 mls/hr Documented by: Azithromycin 500 mg/ Sodium (Chloride) 250 mls @ 250 mls/hr IV Q24H [facility] Last Admin: 06/14/20 00:22 Dose: 250 mls/hr Documented by: Vancomycin HCl 1 gm/ Sodium (Chloride) 250 mls @ 166.667 mls/hr IV Q24H [facility] Last Admin: 06/13/20 15:54 Dose: 166.667 mls/hr Documented by: Insulin Aspart (Novolog) 0 unit SUBCUT TIDAC [facility]; Protocol Last Admin: 06/14/20 11:44 Dose: 4 units Documented by: Insulin Glargine (Lantus Solostar) 4 units SUBCUT BEDTIME [facility] Last Admin: 06/13/20 21:31 Dose: 4 units Documented by: Isosorbide Mononitrate (Imdur) 30 mg PO DAILY [facility] Last Admin: 06/14/20 08:20 Dose: 30 mg Documented by: Lorazepam (Ativan) 0 mg PO Q4H PRN; Protocol PRN Reason: CIWAA Losartan Potassium (Cozaar) 25 mg PO DAILY [facility] Last Admin: 06/14/20 08:17 Dose: 25 mg Documented by: Magnesium Sulfate (Magnesium Sulfate In Water Premix) 2 gm IV ONETIME ONE Stop: 06/14/20 14:36 Ondansetron HCl (Zofran) 4 mg IVPUSH Q4H PRN PRN Reason: Nausea Pantoprazole Sodium (Protonix) 40 mg PO DAILY [facility] Last Admin: 06/14/20 08:19 Dose: 40 mg Documented by: Patient's Own MedicationTylenol #4 2 each PO Q4HR PRN PRN Reason: Pain Last Admin: 06/14/20 10:49 Dose: 2 each Documented by: Anoro Ellipta 0 each INH BID [facility] Last Admin: 06/14/20 08:21 Dose: 1 each Documented by: Propranolol HCl (Inderal) 10 mg PO TID [facility] Last Admin: 06/14/20 14:22 Dose: 10 mg Documented by: Sodium Bicarbonate (Sodium Bicarbonate) 650 mg PO BIDMEALS [facility] Last Admin: 06/14/20 08:19 Dose: 650 mg Documented by: Spironolactone (Aldactone) 25 mg PO DAILY [facility] Last Admin: 06/14/20 08:20 Dose: 25 mg Documented by: Thiamine HCl (Vitamin B-1) 100 mg PO BEDTIME [facility] Last Admin: 06/13/20 20:31 Dose: 100 mg Documented by: Discontinued Medications Fentanyl (Sublimaze) 50 mcg IVPUSH ONETIME ONE Stop: 06/11/20 16:10 Last Admin: 06/11/20 16:54 Dose: 50 mcg Documented by: Furosemide (Lasix) 40 mg IVPUSH NOW ONE Stop: 06/11/20 19:59 Last Admin: 06/11/20 20:05 Dose: 40 mg Documented by: Furosemide (Lasix) 40 mg IV BID [facility] Last Admin: 06/13/20 08:27 Dose: 40 mg Documented by: Furosemide (Lasix) 40 mg IV TID [facility] Last Admin: 06/14/20 05:59 Dose: 40 mg Documented by: Magnesium Sulfate (Magnesium Sulfate In Water Premix) 2 gm in 50 mls @ 50 mls/hr IV ONETIME ONE Stop: 06/12/20 12:16 Last Admin: 06/12/20 13:39 Dose: 50 mls/hr Documented by: Vancomycin HCl 1 gm/ Sodium (Chloride) 250 mls @ 166.667 mls/hr IV Q24H [facility] Last Admin: 06/12/20 14:53 Dose: 166.667 mls/hr Documented by: Insulin Aspart (Novolog) 0 unit SUBCUT TIDAC [facility]; Protocol Last Admin: 06/12/20 11:15 Dose: Not Given Documented by: Insulin Aspart (Novolog) 0 unit SUBCUT TIDAC [facility]; Protocol Last Admin: 06/12/20 09:26 Dose: 4 units Documented by: Insulin Glargine (Lantus Solostar) 15 units SUBCUT BEDTIME [facility] Last Admin: 06/13/20 02:48 Dose: Not Given Documented by: Iopamidol (Isovue Multipack-370 (76%)) 80 ml IVPUSH ONETIME STA Stop: 06/11/20 16:47 Last Admin: 06/11/20 16:54 Dose: 80 ml Documented by: Morphine Sulfate (Morphine) 2 mg IVPUSH ONETIME ONE Stop: 06/11/20 18:54 Last Admin: 06/11/20 18:57 Dose: 2 mg Documented by: Ondansetron HCl (Zofran) 4 mg IVPUSH ONETIME ONE Stop: 06/11/20 16:10 Last Admin: 06/11/20 16:54 Dose: 4 mg Documented by: Potassium Chloride (Klor-Con 10) 40 meq PO BID [facility] Last Admin: 06/12/20 20:19 Dose: 40 meq Documented by: Potassium Chloride (Klor-Con M20) 20 meq PO ONETIME ONE Stop: 06/13/20 08:09 Last Admin: 06/13/20 08:27 Dose: 20 meq Documented by: Vancomycin HCl (Pharmacy To Dose - Vancomycin) 1 dose .XX ONETIME ONE Stop: 06/12/20 11:41 Last Admin: 06/12/20 14:52 Dose: Not Given Documented by: - Exam General: Alert, Oriented Neck: Supple Lungs: Clear to Auscultation, Normal Respiratory Effort Cardiovascular: Regular Rate, Regular Rhythm GI/Abdominal Exam: Soft, Non-Tender, No Distention Extremities: Non-Tender, Pedal Edema (+2 edema up to abdomen) Sepsis Event Note - Evaluation Sepsis Screening Result: No Definite Risk - Focused Exam Vital Signs: Vital Signs Temp Pulse Resp BP BP BP Pulse Ox 06/14/20 11:43 36.4 C 64 17 168/70 H 98 06/14/20 08:20 173/51 H 06/14/20 08:17 173/51 H 06/14/20 08:00 36.4 C 68 18 173/51 H 97 06/14/20 04:00 36.6 C 67 16 137/58 L 97 - Problem List Review Problem List Initiated/Reviewed/Updated: Yes - My Orders Last 24 Hours: My Active Orders 06/14/20 14:34 Bumetanide [Bumex] 1 mg IVPUSH TID 06/14/20 14:35 Magnesium Sulfate/Water [Magnesium Sulfate in Water Premix] 2 gm IV ONETIME ONE - Plan Plan:: 65 yo female admitted for anasarca likely 2 to ETOH related liver cirrhosis anasarca: will switch to Bumex IV, reeducated on need for fluid restriction, Cellulitis of toe: on vancomycin possible pneumonia: on rocephin and azihtormycin
[2020-06-14] MEDS ORDERED: Furosemide 40 MG/4 ML VIAL ONE (17:10)
[2020-06-14] MEDS: Thiamine 100 MG Tab PO SCH (21:12)
[2020-06-14] MEDS: Insulin Glargine,Human Rec. Analog 100 Units/ML 3 ML Pen SUBCUT SCH (21:13)
[2020-06-14] MEDS: Furosemide 40 MG/4 ML VIAL IVPUSH SCH (21:13)
[2020-06-14] MEDS: Folic Acid 1 MG Tab PO SCH (21:13)
[2020-06-15] MEDS: Azithromycin 500 MG in Sodium Chloride 0.9% 250 ML IV SCH (00:40)
[2020-06-15] MEDS: Heparin Sodium 5,000 Units/ML Vial SUBCUT SCH ×2 (03:11→12:45)
[2020-06-15] MEDS: TYLENOL PO PRN ×4 (04:17→20:16)
[2020-06-15] MEDS: Propranolol 20 MG Tab PO SCH ×3 (05:15→23:43)
[2020-06-15] MEDS: Furosemide 40 MG/4 ML VIAL IVPUSH SCH ×3 (05:15→23:44)
[2020-06-15] MEDS: Insulin Aspart 100 Units/ML 3 ML Pen SUBCUT SCH ×3 (06:33→18:10)
[2020-06-15 07:06] LABS: BLOOD UREA NITROGEN,BUN 6 mg/dL (7.0-18.0); CARBON DIOXIDE,CO2 34.1 mmol/L (21.0-32.0); CHLORIDE,CL 100 mmol/L (98-107); GLUCOSE RANDOM 98 mg/dL (74-106); POTASSIUM,K 3.4 mmol/L (3.5-5.1); SODIUM,NA 139 mmol/L (136-145)
[2020-06-15] MEDS: Ezetimibe 10 MG Tab PO SCH (08:19)
[2020-06-15] MEDS: Pantoprazole 40 MG Tab.CR PO SCH (08:19)
[2020-06-15] MEDS: Spironolactone 25 MG Tab PO SCH (08:19)
[2020-06-15] MEDS: amLODIPine 5 MG Tab PO SCH (08:19)
[2020-06-15] MEDS: Sodium Bicarbonate 650 MG Tab PO SCH ×2 (08:19→17:06)
[2020-06-15] MEDS: Aspirin 81 MG Tab.Chew PO SCH (08:19)
[2020-06-15] MEDS: Losartan 50 MG Tab PO SCH (08:20)
[2020-06-15] MEDS: Fludrocortisone 0.1 MG Tab PO SCH (08:20)
[2020-06-15] MEDS: Isosorbide Mononitrate 30 MG Tab.ER PO SCH (08:20)
[2020-06-15] MEDS: Clopidogrel 75 MG Tab PO SCH (08:20)
[2020-06-15] MEDS: ANORO ELLIPTA INH SCH ×2 (09:27→09:52)
[2020-06-15] MEDS ORDERED: ANORO ELLIPTA INH SCH (09:30)
--- NOTE | 2020-06-15 09:33 | PCM.PN ---
- General Info Date of Service: 06/15/20 - Review of Systems Systems Review Comment:: reports dizziness this morning - Patient Data Vitals - Most Recent: Last Vital Signs Temp 36.0 C L 06/15/20 08:00 Pulse 55 L 06/15/20 08:00 Resp 18 06/15/20 08:00 BP 139/51 L 06/15/20 08:20 Pulse Ox 95 06/15/20 08:00 Weight - Most Recent: 46.9 kg I&O - Last 24 Hours: Intake & Output 06/14/20 06/15/20 06/15/20 22:59 06:59 14:59 Intake Total 900 270 Output Total 1250 Balance -350 270 Lab Results Last 24 Hours: Laboratory Results - last 24 hr 06/14/20 06/14/20 06/14/20 Range/Units 11:34 14:07 17:20 WBC (4.0-11.0) K/uL RBC (4.30-5.90) M/uL Hgb (12.0-16.0) g/dL Hct (36.0-46.0) % MCV (80.0-98.0) fL MCH (27.0-32.0) pg MCHC (31.0-37.0) g/dL RDW Std Deviation (28.0-62.0) fl RDW Coeff of Hesham (11.0-15.0) % Plt Count (150-400) K/uL MPV (7.40-12.00) fL Neut % (Auto) (48.0-80.0) % Lymph % (Auto) (16.0-40.0) % [place] % (Auto) (0.0-15.0) % Eos % (Auto) (0.0-7.0) % Baso % (Auto) (0.0-1.5) % Neut # (Auto) (1.4-5.7) K/uL Lymph # (Auto) (0.6-2.4) K/uL [place] # (Auto) (0.0-0.8) K/uL Eos # (Auto) (0.0-0.7) K/uL Baso # (Auto) (0.0-0.1) K/uL Nucleated RBC % /100WBC Nucleated RBCs # K/uL Sodium (136-145) mmol/L Potassium (3.5-5.1) mmol/L Chloride (98-107) mmol/L Carbon Dioxide (21.0-32.0) mmol/L BUN (7.0-18.0) mg/dL Creatinine (0.6-1.0) mg/dL Est Cr Clr Drug Dosing mL/min Estimated GFR (MDRD) ml/min Glucose (74-106) mg/dL POC Glucose 244 H 334 H (60-110) mg/dL Calcium (8.5-10.1) mg/dL Magnesium (1.8-2.4) mg/dL Total Bilirubin (0.2-1.0) mg/dL AST (15-37) IU/L ALT (14-63) IU/L Alkaline Phosphatase (46-116) U/L Total Protein (6.4-8.2) g/dL Albumin (3.4-5.0) g/dL Globulin (2.6-4.0) g/dL Albumin/Globulin Ratio (0.9-1.6) Vancomycin Trough 9.9 (5.0-10.0) ug/mL 06/14/20 06/15/20 06/15/20 Range/Units 21:16 04:47 06:03 WBC 9.13 (4.0-11.0) K/uL RBC 3.57 L (4.30-5.90) M/uL Hgb 11.0 L (12.0-16.0) g/dL Hct 33.7 L (36.0-46.0) % MCV 94.4 (80.0-98.0) fL MCH 30.8 (27.0-32.0) pg MCHC 32.6 (31.0-37.0) g/dL RDW Std Deviation 57.7 (28.0-62.0) fl RDW Coeff of Hesham 17 H (11.0-15.0) % Plt Count 381 (150-400) K/uL MPV 10.10 (7.40-12.00) fL Neut % (Auto) 62.0 (48.0-80.0) % Lymph % (Auto) 22.0 (16.0-40.0) % [place] % (Auto) 13.0 (0.0-15.0) % Eos % (Auto) 2.6 (0.0-7.0) % Baso % (Auto) 0.4 (0.0-1.5) % Neut # (Auto) 5.7 (1.4-5.7) K/uL Lymph # (Auto) 2.0 (0.6-2.4) K/uL [place] # (Auto) 1.2 H (0.0-0.8) K/uL Eos # (Auto) 0.2 (0.0-0.7) K/uL Baso # (Auto) 0.0 (0.0-0.1) K/uL Nucleated RBC % 0.0 /100WBC Nucleated RBCs # 0 K/uL Sodium (136-145) mmol/L Potassium (3.5-5.1) mmol/L Chloride (98-107) mmol/L Carbon Dioxide (21.0-32.0) mmol/L BUN (7.0-18.0) mg/dL Creatinine (0.6-1.0) mg/dL Est Cr Clr Drug Dosing mL/min Estimated GFR (MDRD) ml/min Glucose (74-106) mg/dL POC Glucose 201 H 62 (60-110) mg/dL Calcium (8.5-10.1) mg/dL Magnesium (1.8-2.4) mg/dL Total Bilirubin (0.2-1.0) mg/dL AST (15-37) IU/L ALT (14-63) IU/L Alkaline Phosphatase (46-116) U/L Total Protein (6.4-8.2) g/dL Albumin (3.4-5.0) g/dL Globulin (2.6-4.0) g/dL Albumin/Globulin Ratio (0.9-1.6) Vancomycin Trough (5.0-10.0) ug/mL 06/15/20 06/15/20 Range/Units 06:03 06:18 WBC (4.0-11.0) K/uL RBC (4.30-5.90) M/uL Hgb (12.0-16.0) g/dL Hct (36.0-46.0) % MCV (80.0-98.0) fL MCH (27.0-32.0) pg MCHC (31.0-37.0) g/dL RDW Std Deviation (28.0-62.0) fl RDW Coeff of Hesham (11.0-15.0) % Plt Count (150-400) K/uL MPV (7.40-12.00) fL Neut % (Auto) (48.0-80.0) % Lymph % (Auto) (16.0-40.0) % [place] % (Auto) (0.0-15.0) % Eos % (Auto) (0.0-7.0) % Baso % (Auto) (0.0-1.5) % Neut # (Auto) (1.4-5.7) K/uL Lymph # (Auto) (0.6-2.4) K/uL [place] # (Auto) (0.0-0.8) K/uL Eos # (Auto) (0.0-0.7) K/uL Baso # (Auto) (0.0-0.1) K/uL Nucleated RBC % /100WBC Nucleated RBCs # K/uL Sodium 139 (136-145) mmol/L Potassium 3.4 L (3.5-5.1) mmol/L Chloride 100 (98-107) mmol/L Carbon Dioxide 34.1 H (21.0-32.0) mmol/L BUN 6 L (7.0-18.0) mg/dL Creatinine 0.9 (0.6-1.0) mg/dL Est Cr Clr Drug Dosing 46.85 mL/min Estimated GFR (MDRD) > 60.0 ml/min Glucose 98 (74-106) mg/dL POC Glucose 118 H (60-110) mg/dL Calcium 7.4 L (8.5-10.1) mg/dL Magnesium 1.9 (1.8-2.4) mg/dL Total Bilirubin 0.4 (0.2-1.0) mg/dL AST 51 H (15-37) IU/L ALT 34 (14-63) IU/L Alkaline Phosphatase 155 H (46-116) U/L Total Protein 5.5 L (6.4-8.2) g/dL Albumin 1.6 L (3.4-5.0) g/dL Globulin 3.9 (2.6-4.0) g/dL Albumin/Globulin Ratio 0.4 L (0.9-1.6) Vancomycin Trough (5.0-10.0) ug/mL Diony Results Last 24 Hours: Microbiology 06/15/20 06:22 C. difficile Antigen & Toxins A,B - Final Stool / Feces Med Orders - Current: Current Medications Acetaminophen (Tylenol) 325 mg PO Q6H PRN PRN Reason: Pain Albuterol (Ventolin Hfa) 0 gm INH Q4H PRN PRN Reason: Shortness of Breath Amlodipine Besylate (Norvasc) 5 mg PO DAILY [facility] Last Admin: 06/15/20 08:19 Dose: 5 mg Documented by: Aspirin (Aspirin) 81 mg PO DAILY [facility] Last Admin: 06/15/20 08:19 Dose: 81 mg Documented by: Carisoprodol (Soma) 350 mg PO TID PRN PRN Reason: Muscle Spasm Last Admin: 06/14/20 21:32 Dose: 350 mg Documented by: Clopidogrel Bisulfate (Plavix) 75 mg PO DAILY [facility] Last Admin: 06/15/20 08:20 Dose: 75 mg Documented by: Dextrose/Water (Dextrose 50% In Water) 50 ml IV ASDIRECTED PRN PRN Reason: Hypoglycemia Ezetimibe (Zetia) 10 mg PO DAILY [facility] Last Admin: 06/15/20 08:19 Dose: 10 mg Documented by: Fludrocortisone Acetate (Florinef) 0.1 mg PO DAILY [facility] Last Admin: 06/15/20 08:20 Dose: 0.1 mg Documented by: Folic Acid (Folic Acid) 1 mg PO BEDTIME [facility] Last Admin: 06/14/20 21:13 Dose: 1 mg Documented by: Furosemide (Lasix) 40 mg IVPUSH TID [facility] Last Admin: 06/15/20 05:15 Dose: 40 mg Documented by: Glucagon (Glucagen) 1 mg IM ASDIRECTED PRN PRN Reason: Hypoglycemia Heparin Sodium (Porcine) (Heparin Sodium) 5,000 units SUBCUT Q12H [facility] Last Admin: 06/15/20 03:11 Dose: 5,000 units Documented by: Ceftriaxone Sodium/Dextrose 1 (gm/ Premix) 50 mls @ 100 mls/hr IV Q24H [facility] Last Admin: 06/14/20 23:53 Dose: 100 mls/hr Documented by: Azithromycin 500 mg/ Sodium (Chloride) 250 mls @ 250 mls/hr IV Q24H [facility] Last Admin: 06/15/20 00:40 Dose: 250 mls/hr Documented by: Vancomycin HCl 1 gm/ Sodium (Chloride) 250 mls @ 166.667 mls/hr IV Q24H [facility] Last Admin: 06/14/20 15:27 Dose: 166.667 mls/hr Documented by: Insulin Aspart (Novolog) 0 unit SUBCUT TIDAC [facility]; Protocol Last Admin: 06/15/20 06:33 Dose: Not Given Documented by: Insulin Glargine (Lantus Solostar) 4 units SUBCUT BEDTIME [facility] Last Admin: 06/14/20 21:13 Dose: 4 units Documented by: Isosorbide Mononitrate (Imdur) 30 mg PO DAILY [facility] Last Admin: 06/15/20 08:20 Dose: 30 mg Documented by: Lorazepam (Ativan) 0 mg PO Q4H PRN; Protocol PRN Reason: CIWAA Losartan Potassium (Cozaar) 25 mg PO DAILY [facility] Last Admin: 06/15/20 08:20 Dose: 25 mg Documented by: Ondansetron HCl (Zofran) 4 mg IVPUSH Q4H PRN PRN Reason: Nausea Pantoprazole Sodium (Protonix) 40 mg PO DAILY [facility] Last Admin: 06/15/20 08:19 Dose: 40 mg Documented by: Patient's Own MedicationTylenol #4 2 each PO Q4HR PRN PRN Reason: Pain Last Admin: 06/15/20 04:17 Dose: 2 each Documented by: Anamariaro Ellipta 1 each INH DAILY [facility] Last Admin: 06/15/20 09:27 Dose: 1 each Documented by: Propranolol HCl (Inderal) 10 mg PO TID [facility] Last Admin: 06/15/20 05:15 Dose: 10 mg Documented by: Sodium Bicarbonate (Sodium Bicarbonate) 650 mg PO BIDMEALS [facility] Last Admin: 06/15/20 08:19 Dose: 650 mg Documented by: Spironolactone (Aldactone) 25 mg PO DAILY [facility] Last Admin: 06/15/20 08:19 Dose: 25 mg Documented by: Thiamine HCl (Vitamin B-1) 100 mg PO BEDTIME [facility] Last Admin: 06/14/20 21:12 Dose: 100 mg Documented by: Discontinued Medications Bumetanide (Bumex) 1 mg IVPUSH TID [facility] Last Admin: 06/14/20 17:24 Dose: Not Given Documented by: Fentanyl (Sublimaze) 50 mcg IVPUSH ONETIME ONE Stop: 06/11/20 16:10 Last Admin: 06/11/20 16:54 Dose: 50 mcg Documented by: Furosemide (Lasix) 40 mg IVPUSH NOW ONE Stop: 06/11/20 19:59 Last Admin: 06/11/20 20:05 Dose: 40 mg Documented by: Furosemide (Lasix) 40 mg IV BID [facility] Last Admin: 06/13/20 08:27 Dose: 40 mg Documented by: Furosemide (Lasix) 40 mg IV TID [facility] Last Admin: 06/14/20 15:24 Dose: Not Given Documented by: Furosemide (Lasix) Confirm Administered Dose 40 mg .ROUTE .STK-MED ONE Stop: 06/14/20 17:11 Last Admin: 06/14/20 17:13 Dose: 40 mg Documented by: Magnesium Sulfate (Magnesium Sulfate In Water Premix) 2 gm in 50 mls @ 50 mls/hr IV ONETIME ONE Stop: 06/12/20 12:16 Last Admin: 06/12/20 13:39 Dose: 50 mls/hr Documented by: Vancomycin HCl 1 gm/ Sodium (Chloride) 250 mls @ 166.667 mls/hr IV Q24H [facility] Last Admin: 06/12/20 14:53 Dose: 166.667 mls/hr Documented by: Insulin Aspart (Novolog) 0 unit SUBCUT TIDAC [facility]; Protocol Last Admin: 06/12/20 11:15 Dose: Not Given Documented by: Insulin Aspart (Novolog) 0 unit SUBCUT TIDAC [facility]; Protocol Last Admin: 06/12/20 09:26 Dose: 4 units Documented by: Insulin Glargine (Lantus Solostar) 15 units SUBCUT BEDTIME [facility] Last Admin: 06/13/20 02:48 Dose: Not Given Documented by: Iopamidol (Isovue Multipack-370 (76%)) 80 ml IVPUSH ONETIME STA Stop: 06/11/20 16:47 Last Admin: 06/11/20 16:54 Dose: 80 ml Documented by: Magnesium Sulfate (Magnesium Sulfate In Water Premix) 2 gm IV ONETIME ONE Stop: 06/14/20 14:36 Last Admin: 06/14/20 17:16 Dose: 2 gm Documented by: Morphine Sulfate (Morphine) 2 mg IVPUSH ONETIME ONE Stop: 06/11/20 18:54 Last Admin: 06/11/20 18:57 Dose: 2 mg Documented by: Ondansetron HCl (Zofran) 4 mg IVPUSH ONETIME ONE Stop: 06/11/20 16:10 Last Admin: 06/11/20 16:54 Dose: 4 mg Documented by: Mira Ellipta 0 each INH BID [facility] Last Admin: 06/14/20 21:19 Dose: 1 each Documented by: Potassium Chloride (Klor-Con 10) 40 meq PO BID [facility] Last Admin: 06/12/20 20:19 Dose: 40 meq Documented by: Potassium Chloride (Klor-Con M20) 20 meq PO ONETIME ONE Stop: 06/13/20 08:09 Last Admin: 06/13/20 08:27 Dose: 20 meq Documented by: Vancomycin HCl (Pharmacy To Dose - Vancomycin) 1 dose .XX ONETIME ONE Stop: 06/12/20 11:41 Last Admin: 06/12/20 14:52 Dose: Not Given Documented by: - Exam General: Alert, Oriented Neck: Supple Lungs: Clear to Auscultation, Normal Respiratory Effort Cardiovascular: Regular Rate, Regular Rhythm Extremities: Pedal Edema (+1 extending above abdomen) Skin: Warm, Dry, Intact Neurological: No New Focal Deficit, Normal Gait Sepsis Event Note - Evaluation Sepsis Screening Result: No Definite Risk - Focused Exam Vital Signs: Vital Signs Temp Pulse Resp BP BP Pulse Ox 06/15/20 08:20 139/51 L 06/15/20 08:19 139/51 L 06/15/20 08:00 36.0 C L 55 L 18 139/51 L 95 06/15/20 04:00 36.4 C 54 L 16 163/76 H 94 L 06/15/20 00:00 36.0 C L 60 14 109/49 L 92 L - Problem List Review Problem List Initiated/Reviewed/Updated: Yes - My Orders Last 24 Hours: My Active Orders 06/14/20 22:00 Furosemide [Lasix] 40 mg IVPUSH TID 06/15/20 09:31 Potassium Chloride [Klor-Con M20] 40 meq PO ONETIME ONE - Plan Plan:: 65 yo female admitted for anasarca likely 2 to ETOH related liver cirrhosis anasarca: continue IV lasix as bumex is not available. Cellulitis of toe: on vancomycin possible pneumonia: on Rocephin and azithromycin
[2020-06-15] MEDS ORDERED: Potassium Chloride 20 MEQ Tab.ER PO ONE (09:35)
[2020-06-15] MEDS ORDERED: Calcium Carbonate 500 MG Tab.Chew PO PRN (10:51)
[2020-06-15] MEDS ORDERED: Glucagon,Human Recombinant 1 MG Vial IM PRN ×2 (19:47→23:06)
[2020-06-15] MEDS ORDERED: 50% Dextrose in Water 50 ML Syringe IVPUSH PRN (19:47)
[2020-06-15] MEDS ORDERED: Insulin Aspart 100 Units/ML 3 ML Pen SUBCUT ONE ×2 (19:48→23:35)
[2020-06-15] MEDS: Thiamine 100 MG Tab PO SCH (20:11)
[2020-06-15] MEDS: Folic Acid 1 MG Tab PO SCH (20:11)
[2020-06-15] MEDS: Insulin Glargine,Human Rec. Analog 100 Units/ML 3 ML Pen SUBCUT SCH (20:12)
[2020-06-15] MEDS ORDERED: 50% Dextrose in Water 50 ML Syringe IV PRN (23:06)
[2020-06-15] MEDS: cefTRIAXone 1 GM in Premix Bag 1 BAG IV SCH (23:48)
[2020-06-16] MEDS: Heparin Sodium 5,000 Units/ML Vial SUBCUT SCH ×2 (00:04→12:40)
[2020-06-16] MEDS: Azithromycin 500 MG in Sodium Chloride 0.9% 250 ML IV SCH (01:08)
[2020-06-16] MEDS: TYLENOL PO PRN ×4 (04:23→18:49)
[2020-06-16] MEDS: Furosemide 40 MG/4 ML VIAL IVPUSH SCH ×3 (06:26→21:39)
[2020-06-16] MEDS: Propranolol 20 MG Tab PO SCH ×3 (06:30→21:35)
[2020-06-16] MEDS: Insulin Aspart 100 Units/ML 3 ML Pen SUBCUT SCH ×3 (07:52→17:32)
[2020-06-16] MEDS: Clopidogrel 75 MG Tab PO SCH (08:03)
[2020-06-16] MEDS: Ezetimibe 10 MG Tab PO SCH (08:03)
[2020-06-16] MEDS: Spironolactone 25 MG Tab PO SCH (08:03)
[2020-06-16] MEDS: Sodium Bicarbonate 650 MG Tab PO SCH ×2 (08:03→17:24)
[2020-06-16] MEDS: Fludrocortisone 0.1 MG Tab PO SCH (08:03)
[2020-06-16] MEDS: Pantoprazole 40 MG Tab.CR PO SCH (08:03)
[2020-06-16] MEDS: Aspirin 81 MG Tab.Chew PO SCH (08:03)
[2020-06-16] MEDS: Losartan 50 MG Tab PO SCH (08:11)
[2020-06-16] MEDS: Isosorbide Mononitrate 30 MG Tab.ER PO SCH (08:11)
[2020-06-16] MEDS: amLODIPine 5 MG Tab PO SCH (08:12)
[2020-06-16] MEDS: ANORO ELLIPTA INH SCH (08:13)
[2020-06-16 12:56] LABS: POTASSIUM,K 4.2 mmol/L (3.5-5.1)
[2020-06-16 12:58] LABS: CARBON DIOXIDE,CO2 30.1 mmol/L (21.0-32.0)
--- NOTE | 2020-06-16 13:54 | PCM.PN ---
- General Info Date of Service: 06/16/20 - Review of Systems Systems Review Comment:: reports minimal improvement in abdominal and leg swelling - Patient Data Vitals - Most Recent: Last Vital Signs Temp 36.9 C 06/16/20 12:00 Pulse 61 06/16/20 12:00 Resp 18 06/16/20 12:00 BP 137/41 L 06/16/20 12:00 Pulse Ox 93 L 06/16/20 12:00 Weight - Most Recent: 47.6 kg I&O - Last 24 Hours: Intake & Output 06/15/20 06/16/20 06/16/20 22:59 06:59 14:59 Intake Total 870 900 Output Total 1000 200 Balance -130 700 Lab Results Last 24 Hours: Laboratory Results - last 24 hr 06/15/20 06/15/20 06/15/20 Range/Units 14:31 17:52 17:55 WBC (4.0-11.0) K/uL RBC (4.30-5.90) M/uL Hgb (12.0-16.0) g/dL Hct (36.0-46.0) % MCV (80.0-98.0) fL MCH (27.0-32.0) pg MCHC (31.0-37.0) g/dL RDW Std Deviation (28.0-62.0) fl RDW Coeff of Hesham (11.0-15.0) % Plt Count (150-400) K/uL MPV (7.40-12.00) fL Neut % (Auto) (48.0-80.0) % Lymph % (Auto) (16.0-40.0) % [place] % (Auto) (0.0-15.0) % Eos % (Auto) (0.0-7.0) % Baso % (Auto) (0.0-1.5) % Neut # (Auto) (1.4-5.7) K/uL Lymph # (Auto) (0.6-2.4) K/uL Sequ[place] # (Auto) (0.0-0.8) K/uL Eos # (Auto) (0.0-0.7) K/uL Baso # (Auto) (0.0-0.1) K/uL Nucleated RBC % /100WBC Nucleated RBCs # K/uL Sodium (136-145) mmol/L Potassium (3.5-5.1) mmol/L Chloride (98-107) mmol/L Carbon Dioxide (21.0-32.0) mmol/L BUN (7.0-18.0) mg/dL Creatinine (0.6-1.0) mg/dL Est Cr Clr Drug Dosing mL/min Estimated GFR (MDRD) ml/min Glucose (74-106) mg/dL POC Glucose > 500 H 440 H (60-110) mg/dL Calcium (8.5-10.1) mg/dL Magnesium (1.8-2.4) mg/dL Vancomycin Trough 11.6 H (5.0-10.0) ug/mL 06/15/20 06/15/20 06/15/20 Range/Units 19:30 21:08 23:07 WBC (4.0-11.0) K/uL RBC (4.30-5.90) M/uL Hgb (12.0-16.0) g/dL Hct (36.0-46.0) % MCV (80.0-98.0) fL MCH (27.0-32.0) pg MCHC (31.0-37.0) g/dL RDW Std Deviation (28.0-62.0) fl RDW Coeff of Hesham (11.0-15.0) % Plt Count (150-400) K/uL MPV (7.40-12.00) fL Neut % (Auto) (48.0-80.0) % Lymph % (Auto) (16.0-40.0) % [place] % (Auto) (0.0-15.0) % Eos % (Auto) (0.0-7.0) % Baso % (Auto) (0.0-1.5) % Neut # (Auto) (1.4-5.7) K/uL Lymph # (Auto) (0.6-2.4) K/uL [place] # (Auto) (0.0-0.8) K/uL Eos # (Auto) (0.0-0.7) K/uL Baso # (Auto) (0.0-0.1) K/uL Nucleated RBC % /100WBC Nucleated RBCs # K/uL Sodium (136-145) mmol/L Potassium (3.5-5.1) mmol/L Chloride (98-107) mmol/L Carbon Dioxide (21.0-32.0) mmol/L BUN (7.0-18.0) mg/dL Creatinine (0.6-1.0) mg/dL Est Cr Clr Drug Dosing mL/min Estimated GFR (MDRD) ml/min Glucose (74-106) mg/dL POC Glucose 490 H 421 H 393 H (60-110) mg/dL Calcium (8.5-10.1) mg/dL Magnesium (1.8-2.4) mg/dL Vancomycin Trough (5.0-10.0) ug/mL 06/16/20 06/16/20 06/16/20 Range/Units 02:29 06:11 07:47 WBC (4.0-11.0) K/uL RBC (4.30-5.90) M/uL Hgb (12.0-16.0) g/dL Hct (36.0-46.0) % MCV (80.0-98.0) fL MCH (27.0-32.0) pg MCHC (31.0-37.0) g/dL RDW Std Deviation (28.0-62.0) fl RDW Coeff of Hesham (11.0-15.0) % Plt Count (150-400) K/uL MPV (7.40-12.00) fL Neut % (Auto) (48.0-80.0) % Lymph % (Auto) (16.0-40.0) % [place] % (Auto) (0.0-15.0) % Eos % (Auto) (0.0-7.0) % Baso % (Auto) (0.0-1.5) % Neut # (Auto) (1.4-5.7) K/uL Lymph # (Auto) (0.6-2.4) K/uL [place] # (Auto) (0.0-0.8) K/uL Eos # (Auto) (0.0-0.7) K/uL Baso # (Auto) (0.0-0.1) K/uL Nucleated RBC % /100WBC Nucleated RBCs # K/uL Sodium (136-145) mmol/L Potassium (3.5-5.1) mmol/L Chloride (98-107) mmol/L Carbon Dioxide (21.0-32.0) mmol/L BUN (7.0-18.0) mg/dL Creatinine (0.6-1.0) mg/dL Est Cr Clr Drug Dosing mL/min Estimated GFR (MDRD) ml/min Glucose (74-106) mg/dL POC Glucose 188 H 54 L 92 (60-110) mg/dL Calcium (8.5-10.1) mg/dL Magnesium (1.8-2.4) mg/dL Vancomycin Trough (5.0-10.0) ug/mL 06/16/20 06/16/20 06/16/20 Range/Units 11:44 12:13 12:13 WBC 12.44 H (4.0-11.0) K/uL RBC 3.58 L (4.30-5.90) M/uL Hgb 11.0 L (12.0-16.0) g/dL Hct 33.0 L (36.0-46.0) % MCV 92.2 (80.0-98.0) fL MCH 30.7 (27.0-32.0) pg MCHC 33.3 (31.0-37.0) g/dL RDW Std Deviation 56.4 (28.0-62.0) fl RDW Coeff of Hesham 17 H (11.0-15.0) % Plt Count 396 (150-400) K/uL MPV 10.40 (7.40-12.00) fL Neut % (Auto) 76.4 (48.0-80.0) % Lymph % (Auto) 12.2 L (16.0-40.0) % [place] % (Auto) 9.8 (0.0-15.0) % Eos % (Auto) 1.4 (0.0-7.0) % Baso % (Auto) 0.2 (0.0-1.5) % Neut # (Auto) 9.5 H (1.4-5.7) K/uL Lymph # (Auto) 1.5 (0.6-2.4) K/uL [place] # (Auto) 1.2 H (0.0-0.8) K/uL Eos # (Auto) 0.2 (0.0-0.7) K/uL Baso # (Auto) 0.0 (0.0-0.1) K/uL Nucleated RBC % 0.0 /100WBC Nucleated RBCs # 0 K/uL Sodium 136 (136-145) mmol/L Potassium 4.2 (3.5-5.1) mmol/L Chloride 97 L (98-107) mmol/L Carbon Dioxide 30.1 (21.0-32.0) mmol/L BUN 15 (7.0-18.0) mg/dL Creatinine 1.1 H (0.6-1.0) mg/dL Est Cr Clr Drug Dosing 38.82 mL/min Estimated GFR (MDRD) 50.0 ml/min Glucose 360 H (74-106) mg/dL POC Glucose 338 H (60-110) mg/dL Calcium 7.7 L (8.5-10.1) mg/dL Magnesium 1.8 (1.8-2.4) mg/dL Vancomycin Trough (5.0-10.0) ug/mL Med Orders - Current: Current Medications Acetaminophen (Tylenol) 325 mg PO Q6H PRN PRN Reason: Pain Albuterol (Ventolin Hfa) 0 gm INH Q4H PRN PRN Reason: Shortness of Breath Amlodipine Besylate (Norvasc) 5 mg PO DAILY [facility] Last Admin: 06/16/20 08:12 Dose: 5 mg Documented by: Aspirin (Aspirin) 81 mg PO DAILY [facility] Last Admin: 06/16/20 08:03 Dose: 81 mg Documented by: Calcium Carbonate/Glycine (Tums) 500 mg PO TID PRN PRN Reason: Indigestion Last Admin: 06/15/20 13:31 Dose: 500 mg Documented by: Carisoprodol (Soma) 350 mg PO TID PRN PRN Reason: Muscle Spasm Last Admin: 06/16/20 00:06 Dose: 350 mg Documented by: Clopidogrel Bisulfate (Plavix) 75 mg PO DAILY [facility] Last Admin: 06/16/20 08:03 Dose: 75 mg Documented by: Dextrose/Water (Dextrose 50% In Water) 50 ml IVPUSH ASDIRECTED PRN PRN Reason: Hypoglycemia Dextrose/Water (Dextrose 50% In Water) 50 ml IV ASDIRECTED PRN PRN Reason: Hypoglycemia Ezetimibe (Zetia) 10 mg PO DAILY [facility] Last Admin: 06/16/20 08:03 Dose: 10 mg Documented by: Fludrocortisone Acetate (Florinef) 0.1 mg PO DAILY [facility] Last Admin: 06/16/20 08:03 Dose: 0.1 mg Documented by: Folic Acid (Folic Acid) 1 mg PO BEDTIME [facility] Last Admin: 06/15/20 20:11 Dose: 1 mg Documented by: Furosemide (Lasix) 60 mg IVPUSH TID [facility] Glucagon (Glucagen) 1 mg IM ASDIRECTED PRN PRN Reason: Hypoglycemia Glucagon (Glucagen) 1 mg IM ASDIRECTED PRN PRN Reason: Hypoglycemia Heparin Sodium (Porcine) (Heparin Sodium) 5,000 units SUBCUT Q12H [facility] Last Admin: 06/16/20 12:40 Dose: 5,000 units Documented by: Ceftriaxone Sodium/Dextrose 1 (gm/ Premix) 50 mls @ 100 mls/hr IV Q24H [facility] Last Admin: 06/15/20 23:48 Dose: 100 mls/hr Documented by: Azithromycin 500 mg/ Sodium (Chloride) 250 mls @ 250 mls/hr IV Q24H [facility] Last Admin: 06/16/20 01:08 Dose: 250 mls/hr Documented by: Vancomycin HCl 1 gm/ Sodium (Chloride) 250 mls @ 166.667 mls/hr IV Q24H [facility] Last Admin: 06/15/20 15:55 Dose: 166.667 mls/hr Documented by: Insulin Aspart (Novolog) 0 unit SUBCUT TIDAC [facility]; Protocol Last Admin: 06/16/20 12:45 Dose: 8 units Documented by: Insulin Glargine (Lantus Solostar) 4 units SUBCUT BEDTIME [facility] Last Admin: 06/15/20 20:12 Dose: 4 units Documented by: Isosorbide Mononitrate (Imdur) 30 mg PO DAILY [facility] Last Admin: 06/16/20 08:11 Dose: 30 mg Documented by: Lorazepam (Ativan) 0 mg PO Q4H PRN; Protocol PRN Reason: CIWAA Losartan Potassium (Cozaar) 25 mg PO DAILY [facility] Last Admin: 06/16/20 08:11 Dose: 25 mg Documented by: Metolazone (Zaroxolyn) 5 mg PO DAILY [facility] Ondansetron HCl (Zofran) 4 mg IVPUSH Q4H PRN PRN Reason: Nausea Pantoprazole Sodium (Protonix) 40 mg PO DAILY [facility] Last Admin: 06/16/20 08:03 Dose: 40 mg Documented by: Patient's Own MedicationTylenol #4 2 each PO Q4HR PRN PRN Reason: Pain Last Admin: 06/16/20 10:30 Dose: 2 each Documented by: Anoro Ellipta 1 each INH DAILY [facility] Last Admin: 06/16/20 08:13 Dose: 1 each Documented by: Propranolol HCl (Inderal) 10 mg PO TID [facility] Last Admin: 06/16/20 06:30 Dose: 10 mg Documented by: Sodium Bicarbonate (Sodium Bicarbonate) 650 mg PO BIDMEALS [facility] Last Admin: 06/16/20 08:03 Dose: 650 mg Documented by: Spironolactone (Aldactone) 25 mg PO DAILY [facility] Last Admin: 06/16/20 08:03 Dose: 25 mg Documented by: Thiamine HCl (Vitamin B-1) 100 mg PO BEDTIME [facility] Last Admin: 06/15/20 20:11 Dose: 100 mg Documented by: Discontinued Medications Bumetanide (Bumex) 1 mg IVPUSH TID [facility] Last Admin: 06/14/20 17:24 Dose: Not Given Documented by: Dextrose/Water (Dextrose 50% In Water) 50 ml IV ASDIRECTED PRN PRN Reason: Hypoglycemia Fentanyl (Sublimaze) 50 mcg IVPUSH ONETIME ONE Stop: 06/11/20 16:10 Last Admin: 06/11/20 16:54 Dose: 50 mcg Documented by: Furosemide (Lasix) 40 mg IVPUSH NOW ONE Stop: 06/11/20 19:59 Last Admin: 06/11/20 20:05 Dose: 40 mg Documented by: Furosemide (Lasix) 40 mg IV BID [facility] Last Admin: 06/13/20 08:27 Dose: 40 mg Documented by: Furosemide (Lasix) 40 mg IV TID [facility] Last Admin: 06/14/20 15:24 Dose: Not Given Documented by: Furosemide (Lasix) 40 mg IVPUSH TID [facility] Last Admin: 06/16/20 06:26 Dose: 40 mg Documented by: Furosemide (Lasix) Confirm Administered Dose 40 mg .ROUTE .STK-MED ONE Stop: 06/14/20 17:11 Last Admin: 06/14/20 17:13 Dose: 40 mg Documented by: Glucagon (Glucagen) 1 mg IM ASDIRECTED PRN PRN Reason: Hypoglycemia Magnesium Sulfate (Magnesium Sulfate In Water Premix) 2 gm in 50 mls @ 50 mls/hr IV ONETIME ONE Stop: 06/12/20 12:16 Last Admin: 06/12/20 13:39 Dose: 50 mls/hr Documented by: Vancomycin HCl 1 gm/ Sodium (Chloride) 250 mls @ 166.667 mls/hr IV Q24H [facility] Last Admin: 06/12/20 14:53 Dose: 166.667 mls/hr Documented by: Insulin Aspart (Novolog) 0 unit SUBCUT TIDAC [facility]; Protocol Last Admin: 06/12/20 11:15 Dose: Not Given Documented by: Insulin Aspart (Novolog) 0 unit SUBCUT TIDAC [facility]; Protocol Last Admin: 06/12/20 09:26 Dose: 4 units Documented by: Insulin Aspart (Novolog) 10 unit SUBCUT ONETIME ONE Stop: 06/15/20 19:49 Last Admin: 06/15/20 20:14 Dose: 10 units Documented by: Insulin Aspart (Novolog) 10 unit SUBCUT ONETIME ONE Stop: 06/15/20 23:36 Last Admin: 06/15/20 23:41 Dose: 10 units Documented by: Insulin Glargine (Lantus Solostar) 15 units SUBCUT BEDTIME [facility] Last Admin: 06/13/20 02:48 Dose: Not Given Documented by: Iopamidol (Isovue Multipack-370 (76%)) 80 ml IVPUSH ONETIME STA Stop: 06/11/20 16:47 Last Admin: 06/11/20 16:54 Dose: 80 ml Documented by: Magnesium Sulfate (Magnesium Sulfate In Water Premix) 2 gm IV ONETIME ONE Stop: 06/14/20 14:36 Last Admin: 06/14/20 17:16 Dose: 2 gm Documented by: Morphine Sulfate (Morphine) 2 mg IVPUSH ONETIME ONE Stop: 06/11/20 18:54 Last Admin: 06/11/20 18:57 Dose: 2 mg Documented by: Ondansetron HCl (Zofran) 4 mg IVPUSH ONETIME ONE Stop: 06/11/20 16:10 Last Admin: 06/11/20 16:54 Dose: 4 mg Documented by: Anoro Ellipta 0 each INH BID [facility] Last Admin: 06/15/20 09:52 Dose: Not Given Documented by: Potassium Chloride (Klor-Con 10) 40 meq PO BID [facility] Last Admin: 06/12/20 20:19 Dose: 40 meq Documented by: Potassium Chloride (Klor-Con M20) 20 meq PO ONETIME ONE Stop: 06/13/20 08:09 Last Admin: 06/13/20 08:27 Dose: 20 meq Documented by: Potassium Chloride (Klor-Con M20) 40 meq PO ONETIME ONE Stop: 06/15/20 09:36 Last Admin: 06/15/20 10:19 Dose: 40 meq Documented by: Vancomycin HCl (Pharmacy To Dose - Vancomycin) 1 dose .XX ONETIME ONE Stop: 06/12/20 11:41 Last Admin: 06/12/20 14:52 Dose: Not Given Documented by: - Exam General: Alert, Oriented Neck: Supple Lungs: Clear to Auscultation, Normal Respiratory Effort Cardiovascular: Regular Rate, Regular Rhythm GI/Abdominal Exam: Normal Bowel Sounds, Soft, Non-Tender Extremities: Non-Tender, Pedal Edema (+1 edema) Skin: Warm, Dry, Intact Sepsis Event Note - Evaluation Sepsis Screening Result: No Definite Risk - Focused Exam Vital Signs: Vital Signs Temp Pulse Resp BP BP Pulse Ox Pulse Ox 06/16/20 12:00 36.9 C 61 18 137/41 L 93 L 06/16/20 08:12 136/55 L 06/16/20 08:11 136/55 L 06/16/20 08:00 36.3 C 58 L 18 102/44 L 95 95 06/16/20 04:00 36.1 C 63 16 104/59 L 94 L - Problem List Review Problem List Initiated/Reviewed/Updated: Yes - My Orders Last 24 Hours: My Active Orders 06/15/20 19:47 Dextrose 50% in Water 50 ml IVPUSH ASDIRECTED PRN Glucagon,Human Recombinant [GlucaGen] 1 mg IM ASDIRECTED PRN 06/15/20 23:06 Dextrose 50% in Water 50 ml IV ASDIRECTED PRN Glucagon,Human Recombinant [GlucaGen] 1 mg IM ASDIRECTED PRN 06/16/20 14:00 Furosemide [Lasix] 60 mg IVPUSH TID metOLazone [Zaroxolyn] 5 mg PO DAILY 06/17/20 05:11 BASIC METABOLIC PANEL,BMP [CHEM] AM CBC WITH AUTO DIFF [HEME] AM MAGNESIUM [CHEM] AM - Plan Plan:: 65 yo female admitted for anasarca likely 2 to ETOH related liver cirrhosis anasarca: continue IV lasix, only negative 80ml, add metolazone Cellulitis of toe: on vancomycin possible pneumonia: on Rocephin and azithromycin
[2020-06-16] MEDS: Metolazone 5 MG Tab PO SCH (14:19)
[2020-06-16] MEDS ORDERED: Glucagon,Human Recombinant 1 MG Vial IM PRN ×2 (19:06→23:27)
[2020-06-16] MEDS ORDERED: 50% Dextrose in Water 50 ML Syringe IVPUSH PRN (19:06)
[2020-06-16] MEDS ORDERED: Insulin Aspart 100 Units/ML 3 ML Pen SUBCUT ONE (19:08)
[2020-06-16] MEDS: Folic Acid 1 MG Tab PO SCH (21:36)
[2020-06-16] MEDS: Insulin Glargine,Human Rec. Analog 100 Units/ML 3 ML Pen SUBCUT SCH (21:38)
[2020-06-16] MEDS: Thiamine 100 MG Tab PO SCH (21:38)
[2020-06-16] MEDS ORDERED: Insulin Glargine,Human Rec. Analog 100 Units/ML 3 ML Pen SUBCUT ONE (23:27)
[2020-06-16] MEDS ORDERED: 50% Dextrose in Water 50 ML Syringe IV PRN (23:27)
[2020-06-16] MEDS: cefTRIAXone 1 GM in Premix Bag 1 BAG IV SCH (23:52)
[2020-06-17] MEDS: Azithromycin 500 MG in Sodium Chloride 0.9% 250 ML IV SCH (00:38)
[2020-06-17] MEDS: Heparin Sodium 5,000 Units/ML Vial SUBCUT SCH ×2 (00:39→12:37)
[2020-06-17] MEDS: TYLENOL PO PRN ×4 (03:59→20:48)
[2020-06-17] MEDS: Furosemide 40 MG/4 ML VIAL IVPUSH SCH ×3 (05:32→22:30)
[2020-06-17] MEDS: Propranolol 20 MG Tab PO SCH ×3 (05:32→22:29)
[2020-06-17 06:54] LABS: CARBON DIOXIDE,CO2 35.8 mmol/L (21.0-32.0); POTASSIUM,K 3.1 mmol/L (3.5-5.1)
[2020-06-17] MEDS: Insulin Aspart 100 Units/ML 3 ML Pen SUBCUT SCH ×3 (08:21→17:51)
[2020-06-17] MEDS: Sodium Bicarbonate 650 MG Tab PO SCH ×2 (08:22→17:08)
[2020-06-17] MEDS: Aspirin 81 MG Tab.Chew PO SCH (08:22)
[2020-06-17] MEDS: Clopidogrel 75 MG Tab PO SCH (08:23)
[2020-06-17] MEDS: Pantoprazole 40 MG Tab.CR PO SCH (08:23)
[2020-06-17] MEDS: Metolazone 5 MG Tab PO SCH (08:23)
[2020-06-17] MEDS: Ezetimibe 10 MG Tab PO SCH (08:23)
[2020-06-17] MEDS: Fludrocortisone 0.1 MG Tab PO SCH (08:23)
[2020-06-17] MEDS: Spironolactone 25 MG Tab PO SCH (08:23)
[2020-06-17] MEDS: ANORO ELLIPTA INH SCH (08:24)
[2020-06-17] MEDS: amLODIPine 5 MG Tab PO SCH (08:24)
[2020-06-17] MEDS: Losartan 50 MG Tab PO SCH (08:24)
[2020-06-17] MEDS: Isosorbide Mononitrate 30 MG Tab.ER PO SCH (08:24)
[2020-06-17] MEDS: Potassium Chloride 20 MEQ Tab.ER PO SCH ×2 (08:34→15:56)
[2020-06-17] MEDS ORDERED: Spironolactone 25 MG Tab PO ONE (11:02)
--- NOTE | 2020-06-17 12:41 | PCM.PN ---
- General Info Date of Service: 06/17/20 Admission Dx/Problem (Free Text): Admission Diagnosis/Problem Admission Diagnosis/Problem Ascites - Patient Data Vitals - Most Recent: Last Vital Signs Temp 98.3 F 06/17/20 12:00 Pulse 63 06/17/20 12:00 Resp 18 06/17/20 12:00 BP 152/50 H 06/17/20 12:00 Pulse Ox 95 06/17/20 12:00 Weight - Most Recent: 47.9 kg I&O - Last 24 Hours: Intake & Output 06/16/20 06/17/20 06/17/20 22:59 06:59 14:59 Intake Total 960 760 Output Total 900 850 Balance 60 -90 Lab Results Last 24 Hours: Laboratory Results - last 24 hr 06/16/20 06/16/20 06/16/20 Range/Units 12:13 17:28 18:55 WBC (4.0-11.0) K/uL RBC (4.30-5.90) M/uL Hgb (12.0-16.0) g/dL Hct (36.0-46.0) % MCV (80.0-98.0) fL MCH (27.0-32.0) pg MCHC (31.0-37.0) g/dL RDW Std Deviation (28.0-62.0) fl RDW Coeff of [place] (11.0-15.0) % Plt Count (150-400) K/uL MPV (7.40-12.00) fL Neut % (Auto) (48.0-80.0) % Lymph % (Auto) (16.0-40.0) % [place] % (Auto) (0.0-15.0) % Eos % (Auto) (0.0-7.0) % Baso % (Auto) (0.0-1.5) % Neut # (Auto) (1.4-5.7) K/uL Lymph # (Auto) (0.6-2.4) K/uL [place] # (Auto) (0.0-0.8) K/uL Eos # (Auto) (0.0-0.7) K/uL Baso # (Auto) (0.0-0.1) K/uL Nucleated RBC % /100WBC Nucleated RBCs # K/uL Sodium 136 (136-145) mmol/L Potassium 4.2 (3.5-5.1) mmol/L Chloride 97 L (98-107) mmol/L Carbon Dioxide 30.1 (21.0-32.0) mmol/L BUN 15 (7.0-18.0) mg/dL Creatinine 1.1 H (0.6-1.0) mg/dL Est Cr Clr Drug Dosing 38.82 mL/min Estimated GFR (MDRD) 50.0 ml/min Glucose 360 H (74-106) mg/dL POC Glucose 483 H > 500 H (60-110) mg/dL Calcium 7.7 L (8.5-10.1) mg/dL Magnesium 1.8 (1.8-2.4) mg/dL 06/16/20 06/16/20 06/16/20 Range/Units 21:04 23:00 23:26 WBC (4.0-11.0) K/uL RBC (4.30-5.90) M/uL Hgb (12.0-16.0) g/dL Hct (36.0-46.0) % MCV (80.0-98.0) fL MCH (27.0-32.0) pg MCHC (31.0-37.0) g/dL RDW Std Deviation (28.0-62.0) fl RDW Coeff of [place] (11.0-15.0) % Plt Count (150-400) K/uL MPV (7.40-12.00) fL Neut % (Auto) (48.0-80.0) % Lymph % (Auto) (16.0-40.0) % [place] % (Auto) (0.0-15.0) % Eos % (Auto) (0.0-7.0) % Baso % (Auto) (0.0-1.5) % Neut # (Auto) (1.4-5.7) K/uL Lymph # (Auto) (0.6-2.4) K/uL [place] # (Auto) (0.0-0.8) K/uL Eos # (Auto) (0.0-0.7) K/uL Baso # (Auto) (0.0-0.1) K/uL Nucleated RBC % /100WBC Nucleated RBCs # K/uL Sodium (136-145) mmol/L Potassium (3.5-5.1) mmol/L Chloride (98-107) mmol/L Carbon Dioxide (21.0-32.0) mmol/L BUN (7.0-18.0) mg/dL Creatinine (0.6-1.0) mg/dL Est Cr Clr Drug Dosing mL/min Estimated GFR (MDRD) ml/min Glucose (74-106) mg/dL POC Glucose 443 H 372 H 329 H (60-110) mg/dL Calcium (8.5-10.1) mg/dL Magnesium (1.8-2.4) mg/dL 06/17/20 06/17/20 06/17/20 Range/Units 01:31 03:43 04:31 WBC (4.0-11.0) K/uL RBC (4.30-5.90) M/uL Hgb (12.0-16.0) g/dL Hct (36.0-46.0) % MCV (80.0-98.0) fL MCH (27.0-32.0) pg MCHC (31.0-37.0) g/dL RDW Std Deviation (28.0-62.0) fl RDW Coeff of [place] (11.0-15.0) % Plt Count (150-400) K/uL MPV (7.40-12.00) fL Neut % (Auto) (48.0-80.0) % Lymph % (Auto) (16.0-40.0) % [place] % (Auto) (0.0-15.0) % Eos % (Auto) (0.0-7.0) % Baso % (Auto) (0.0-1.5) % Neut # (Auto) (1.4-5.7) K/uL Lymph # (Auto) (0.6-2.4) K/uL [place] # (Auto) (0.0-0.8) K/uL Eos # (Auto) (0.0-0.7) K/uL Baso # (Auto) (0.0-0.1) K/uL Nucleated RBC % /100WBC Nucleated RBCs # K/uL Sodium (136-145) mmol/L Potassium (3.5-5.1) mmol/L Chloride (98-107) mmol/L Carbon Dioxide (21.0-32.0) mmol/L BUN (7.0-18.0) mg/dL Creatinine (0.6-1.0) mg/dL Est Cr Clr Drug Dosing mL/min Estimated GFR (MDRD) ml/min Glucose (74-106) mg/dL POC Glucose 192 H 32 L 130 H (60-110) mg/dL Calcium (8.5-10.1) mg/dL Magnesium (1.8-2.4) mg/dL 06/17/20 06/17/20 06/17/20 Range/Units 05:50 05:50 06:24 WBC 11.78 H (4.0-11.0) K/uL RBC 3.34 L (4.30-5.90) M/uL Hgb 10.2 L (12.0-16.0) g/dL Hct 31.0 L (36.0-46.0) % MCV 92.8 (80.0-98.0) fL MCH 30.5 (27.0-32.0) pg MCHC 32.9 (31.0-37.0) g/dL RDW Std Deviation 56.5 (28.0-62.0) fl RDW Coeff of [place] 17 H (11.0-15.0) % Plt Count 385 (150-400) K/uL MPV 9.90 (7.40-12.00) fL Neut % (Auto) 66.3 (48.0-80.0) % Lymph % (Auto) 19.2 (16.0-40.0) % [place] % (Auto) 11.6 (0.0-15.0) % Eos % (Auto) 2.5 (0.0-7.0) % Baso % (Auto) 0.4 (0.0-1.5) % Neut # (Auto) 7.8 H (1.4-5.7) K/uL Lymph # (Auto) 2.3 (0.6-2.4) K/uL [place] # (Auto) 1.4 H (0.0-0.8) K/uL Eos # (Auto) 0.3 (0.0-0.7) K/uL Baso # (Auto) 0.1 (0.0-0.1) K/uL Nucleated RBC % 0.0 /100WBC Nucleated RBCs # 0 K/uL Sodium 137 (136-145) mmol/L Potassium 3.1 L (3.5-5.1) mmol/L Chloride 99 (98-107) mmol/L Carbon Dioxide 35.8 H (21.0-32.0) mmol/L BUN 16 (7.0-18.0) mg/dL Creatinine 1.1 H (0.6-1.0) mg/dL Est Cr Clr Drug Dosing 39.07 mL/min Estimated GFR (MDRD) 50.0 ml/min Glucose 102 (74-106) mg/dL POC Glucose 156 H (60-110) mg/dL Calcium 7.7 L (8.5-10.1) mg/dL Magnesium 1.8 (1.8-2.4) mg/dL 06/17/20 06/17/20 Range/Units 08:20 11:52 WBC (4.0-11.0) K/uL RBC (4.30-5.90) M/uL Hgb (12.0-16.0) g/dL Hct (36.0-46.0) % MCV (80.0-98.0) fL MCH (27.0-32.0) pg MCHC (31.0-37.0) g/dL RDW Std Deviation (28.0-62.0) fl RDW Coeff of [place] (11.0-15.0) % Plt Count (150-400) K/uL MPV (7.40-12.00) fL Neut % (Auto) (48.0-80.0) % Lymph % (Auto) (16.0-40.0) % [place] % (Auto) (0.0-15.0) % Eos % (Auto) (0.0-7.0) % Baso % (Auto) (0.0-1.5) % Neut # (Auto) (1.4-5.7) K/uL Lymph # (Auto) (0.6-2.4) K/uL [place] # (Auto) (0.0-0.8) K/uL Eos # (Auto) (0.0-0.7) K/uL Baso # (Auto) (0.0-0.1) K/uL Nucleated RBC % /100WBC Nucleated RBCs # K/uL Sodium (136-145) mmol/L Potassium (3.5-5.1) mmol/L Chloride (98-107) mmol/L Carbon Dioxide (21.0-32.0) mmol/L BUN (7.0-18.0) mg/dL Creatinine (0.6-1.0) mg/dL Est Cr Clr Drug Dosing mL/min Estimated GFR (MDRD) ml/min Glucose (74-106) mg/dL POC Glucose 124 H 190 H (60-110) mg/dL Calcium (8.5-10.1) mg/dL Magnesium (1.8-2.4) mg/dL Med Orders - Current: Current Medications Acetaminophen (Tylenol) 325 mg PO Q6H PRN PRN Reason: Pain Albuterol (Ventolin Hfa) 0 gm INH Q4H PRN PRN Reason: Shortness of Breath Amlodipine Besylate (Norvasc) 5 mg PO DAILY [facility] Last Admin: 06/17/20 08:24 Dose: 5 mg Documented by: Aspirin (Aspirin) 81 mg PO DAILY [facility] Last Admin: 06/17/20 08:22 Dose: 81 mg Documented by: Calcium Carbonate/Glycine (Tums) 500 mg PO TID PRN PRN Reason: Indigestion Last Admin: 06/15/20 13:31 Dose: 500 mg Documented by: Carisoprodol (Soma) 350 mg PO TID PRN PRN Reason: Muscle Spasm Last Admin: 06/16/20 18:52 Dose: 350 mg Documented by: Clopidogrel Bisulfate (Plavix) 75 mg PO DAILY [facility] Last Admin: 06/17/20 08:23 Dose: 75 mg Documented by: Dextrose/Water (Dextrose 50% In Water) 50 ml IVPUSH ASDIRECTED PRN PRN Reason: Hypoglycemia Ezetimibe (Zetia) 10 mg PO DAILY [facility] Last Admin: 06/17/20 08:23 Dose: 10 mg Documented by: Fludrocortisone Acetate (Florinef) 0.1 mg PO DAILY [facility] Last Admin: 06/17/20 08:23 Dose: 0.1 mg Documented by: Folic Acid (Folic Acid) 1 mg PO BEDTIME [facility] Last Admin: 06/16/20 21:36 Dose: 1 mg Documented by: Furosemide (Lasix) 60 mg IVPUSH TID [facility] Last Admin: 06/17/20 05:32 Dose: 60 mg Documented by: Glucagon (Glucagen) 1 mg IM ASDIRECTED PRN PRN Reason: Hypoglycemia Glucagon (Glucagen) 1 mg IM ASDIRECTED PRN PRN Reason: Hypoglycemia Heparin Sodium (Porcine) (Heparin Sodium) 5,000 units SUBCUT Q12H [facility] Last Admin: 06/17/20 12:37 Dose: 5,000 units Documented by: Ceftriaxone Sodium/Dextrose 1 (gm/ Premix) 50 mls @ 100 mls/hr IV Q24H [facility] Stop: 06/18/20 01:14 Last Admin: 06/16/20 23:52 Dose: 100 mls/hr Documented by: Azithromycin 500 mg/ Sodium (Chloride) 250 mls @ 250 mls/hr IV Q24H [facility] Stop: 06/18/20 01:44 Last Admin: 06/17/20 00:38 Dose: 250 mls/hr Documented by: Vancomycin HCl 1 gm/ Sodium (Chloride) 250 mls @ 166.667 mls/hr IV Q24H [facility] Last Admin: 06/16/20 14:08 Dose: 166.667 mls/hr Documented by: Insulin Aspart (Novolog) 0 unit SUBCUT TIDAC [facility]; Protocol Last Admin: 06/17/20 12:37 Dose: 2 units Documented by: Insulin Glargine (Lantus Solostar) 15 units SUBCUT BEDTIME [facility] Isosorbide Mononitrate (Imdur) 30 mg PO DAILY [facility] Last Admin: 06/17/20 08:24 Dose: 30 mg Documented by: Lorazepam (Ativan) 0 mg PO Q4H PRN; Protocol PRN Reason: CIWAA Losartan Potassium (Cozaar) 25 mg PO DAILY [facility] Last Admin: 06/17/20 08:24 Dose: 25 mg Documented by: Metolazone (Zaroxolyn) 5 mg PO DAILY [facility] Last Admin: 06/17/20 08:23 Dose: 5 mg Documented by: Ondansetron HCl (Zofran) 4 mg IVPUSH Q4H PRN PRN Reason: Nausea Pantoprazole Sodium (Protonix) 40 mg PO DAILY [facility] Last Admin: 06/17/20 08:23 Dose: 40 mg Documented by: Patient's Own MedicationTylenol #4 2 each PO Q4HR PRN PRN Reason: Pain Last Admin: 06/17/20 11:11 Dose: 2 each Documented by: Mira Alvarado 1 each INH DAILY [facility] Last Admin: 06/17/20 08:24 Dose: 1 each Documented by: Potassium Chloride (Klor-Con M20) 40 meq PO BID@0800,1600 [facility] Last Admin: 06/17/20 08:34 Dose: 40 meq Documented by: Propranolol HCl (Inderal) 10 mg PO TID [facility] Last Admin: 06/17/20 05:32 Dose: 10 mg Documented by: Sodium Bicarbonate (Sodium Bicarbonate) 650 mg PO BIDMEALS [facility] Last Admin: 06/17/20 08:22 Dose: 650 mg Documented by: Spironolactone (Aldactone) 50 mg PO DAILY [facility] Thiamine HCl (Vitamin B-1) 100 mg PO BEDTIME [facility] Last Admin: 06/16/20 21:38 Dose: 100 mg Documented by: Discontinued Medications Bumetanide (Bumex) 1 mg IVPUSH TID [facility] Last Admin: 06/14/20 17:24 Dose: Not Given Documented by: Dextrose/Water (Dextrose 50% In Water) 50 ml IV ASDIRECTED PRN PRN Reason: Hypoglycemia Dextrose/Water (Dextrose 50% In Water) 50 ml IV ASDIRECTED PRN PRN Reason: Hypoglycemia Dextrose/Water (Dextrose 50% In Water) 50 ml IVPUSH ASDIRECTED PRN PRN Reason: Hypoglycemia Dextrose/Water (Dextrose 50% In Water) 50 ml IV ASDIRECTED PRN PRN Reason: Hypoglycemia Fentanyl (Sublimaze) 50 mcg IVPUSH ONETIME ONE Stop: 06/11/20 16:10 Last Admin: 06/11/20 16:54 Dose: 50 mcg Documented by: Furosemide (Lasix) 40 mg IVPUSH NOW ONE Stop: 06/11/20 19:59 Last Admin: 06/11/20 20:05 Dose: 40 mg Documented by: Furosemide (Lasix) 40 mg IV BID [facility] Last Admin: 06/13/20 08:27 Dose: 40 mg Documented by: Furosemide (Lasix) 40 mg IV TID [facility] Last Admin: 06/14/20 15:24 Dose: Not Given Documented by: Furosemide (Lasix) 40 mg IVPUSH TID [facility] Last Admin: 06/16/20 06:26 Dose: 40 mg Documented by: Furosemide (Lasix) Confirm Administered Dose 40 mg .ROUTE .STK-MED ONE Stop: 06/14/20 17:11 Last Admin: 06/14/20 17:13 Dose: 40 mg Documented by: Glucagon (Glucagen) 1 mg IM ASDIRECTED PRN PRN Reason: Hypoglycemia Glucagon (Glucagen) 1 mg IM ASDIRECTED PRN PRN Reason: Hypoglycemia Glucagon (Glucagen) 1 mg IM ASDIRECTED PRN PRN Reason: Hypoglycemia Magnesium Sulfate (Magnesium Sulfate In Water Premix) 2 gm in 50 mls @ 50 mls/hr IV ONETIME ONE Stop: 06/12/20 12:16 Last Admin: 06/12/20 13:39 Dose: 50 mls/hr Documented by: Vancomycin HCl 1 gm/ Sodium (Chloride) 250 mls @ 166.667 mls/hr IV Q24H [facility] Last Admin: 06/12/20 14:53 Dose: 166.667 mls/hr Documented by: Insulin Aspart (Novolog) 0 unit SUBCUT TIDAC [facility]; Protocol Last Admin: 06/12/20 11:15 Dose: Not Given Documented by: Insulin Aspart (Novolog) 0 unit SUBCUT TIDAC [facility]; Protocol Last Admin: 06/12/20 09:26 Dose: 4 units Documented by: Insulin Aspart (Novolog) 10 unit SUBCUT ONETIME ONE Stop: 06/15/20 19:49 Last Admin: 06/15/20 20:14 Dose: 10 units Documented by: Insulin Aspart (Novolog) 10 unit SUBCUT ONETIME ONE Stop: 06/15/20 23:36 Last Admin: 06/15/20 23:41 Dose: 10 units Documented by: Insulin Aspart (Novolog) 10 unit SUBCUT STAT ONE Stop: 06/16/20 19:09 Last Admin: 06/16/20 19:46 Dose: 10 unit Documented by: Insulin Glargine (Lantus Solostar) 15 units SUBCUT BEDTIME [facility] Last Admin: 06/13/20 02:48 Dose: Not Given Documented by: Insulin Glargine (Lantus Solostar) 4 units SUBCUT BEDTIME [facility] Last Admin: 06/16/20 21:38 Dose: 4 units Documented by: Insulin Glargine (Lantus Solostar) 11 units SUBCUT ONETIME ONE Stop: 06/16/20 23:28 Last Admin: 06/16/20 23:52 Dose: 11 units Documented by: Iopamidol (Isovue Multipack-370 (76%)) 80 ml IVPUSH ONETIME STA Stop: 06/11/20 16:47 Last Admin: 06/11/20 16:54 Dose: 80 ml Documented by: Magnesium Sulfate (Magnesium Sulfate In Water Premix) 2 gm IV ONETIME ONE Stop: 06/14/20 14:36 Last Admin: 06/14/20 17:16 Dose: 2 gm Documented by: Morphine Sulfate (Morphine) 2 mg IVPUSH ONETIME ONE Stop: 06/11/20 18:54 Last Admin: 06/11/20 18:57 Dose: 2 mg Documented by: Ondansetron HCl (Zofran) 4 mg IVPUSH ONETIME ONE Stop: 06/11/20 16:10 Last Admin: 06/11/20 16:54 Dose: 4 mg Documented by: Anoro Ellipta 0 each INH BID [facility] Last Admin: 06/15/20 09:52 Dose: Not Given Documented by: Potassium Chloride (Klor-Con 10) 40 meq PO BID [facility] Last Admin: 06/12/20 20:19 Dose: 40 meq Documented by: Potassium Chloride (Klor-Con M20) 20 meq PO ONETIME ONE Stop: 06/13/20 08:09 Last Admin: 06/13/20 08:27 Dose: 20 meq Documented by: Potassium Chloride (Klor-Con M20) 40 meq PO ONETIME ONE Stop: 06/15/20 09:36 Last Admin: 06/15/20 10:19 Dose: 40 meq Documented by: Spironolactone (Aldactone) 25 mg PO DAILY [facility] Last Admin: 06/17/20 08:23 Dose: 25 mg Documented by: Spironolactone (Aldactone) 25 mg PO ONETIME ONE Stop: 06/17/20 11:03 Last Admin: 06/17/20 11:14 Dose: 25 mg Documented by: Vancomycin HCl (Pharmacy To Dose - Vancomycin) 1 dose .XX ONETIME ONE Stop: 06/12/20 11:41 Last Admin: 06/12/20 14:52 Dose: Not Given Documented by: Sepsis Event Note - Evaluation Sepsis Screening Result: No Definite Risk - Focused Exam Vital Signs: Vital Signs Temp Pulse Resp BP BP Pulse Ox Pulse Ox 06/17/20 12:00 98.3 F 63 18 152/50 H 95 06/17/20 08:24 153/71 H 06/17/20 08:00 99 06/17/20 07:43 98.3 F 60 16 153/71 H 99 06/17/20 04:00 97.3 F 65 18 168/68 H 95 - Problem List & Annotations (1) Cirrhosis SNOMED Code(s): 55189109 Code(s): K74.60 - UNSPECIFIED CIRRHOSIS OF LIVER Status: Acute Current Visit: Yes Qualifiers: Hepatic cirrhosis type: alcoholic cirrhosis (2) Anasarca SNOMED Code(s): 281061365, 733493080 Code(s): R60.1 - GENERALIZED EDEMA Status: Acute Current Visit: Yes (3) Diabetic foot ulcer SNOMED Code(s): 850861946 Code(s): E11.621 - TYPE 2 DIABETES MELLITUS WITH FOOT ULCER; L97.509 - NON- PRESSURE CHRONIC ULCER OTH PRT UNSP FOOT W UNSP SEVERITY Status: Acute Current Visit: Yes Qualifiers: Diabetic foot ulcer location: heel Diabetes mellitus type: type 1 Laterality: left Non-pressure ulcer stage: limited to breakdown of skin Qualified Code(s): E10.621 - Type 1 diabetes mellitus with foot ulcer; L97.421 - Non-pressure chronic ulcer of left heel and midfoot limited to breakdown of skin (4) Hypoproteinemia SNOMED Code(s): 7381878 Code(s): E77.8 - OTHER DISORDERS OF GLYCOPROTEIN METABOLISM Status: Acute Current Visit: Yes (5) Leukocytosis SNOMED Code(s): 081259620, 163107452 Code(s): D72.829 - ELEVATED WHITE BLOOD CELL COUNT, UNSPECIFIED Status: Acute Priority: High Current Visit: Yes Qualifiers: Leukocytosis type: unspecified Qualified Code(s): D72.829 - Elevated white blood cell count, unspecified (6) Gait instability SNOMED Code(s): 32363274 Code(s): R26.81 - UNSTEADINESS ON FEET Status: Acute Current Visit: No (7) CAD (coronary artery disease) SNOMED Code(s): 60402319 Code(s): I25.10 - ATHSCL HEART DISEASE OF [place] CORONARY ARTERY W/O ANG PCTRS Status: Chronic Current Visit: No (8) COPD (chronic obstructive pulmonary disease) SNOMED Code(s): 79487059 Code(s): J44.9 - CHRONIC OBSTRUCTIVE PULMONARY DISEASE, UNSPECIFIED Status: Chronic Current Visit: No Qualifiers: COPD type: unspecified COPD Qualified Code(s): J44.9 - Chronic obstructive pulmonary disease, unspecified (9) Chronic pain SNOMED Code(s): 26299256 Code(s): G89.29 - OTHER CHRONIC PAIN Status: Chronic Current Visit: No (10) Diabetes mellitus type 1, controlled, insulin dependent SNOMED Code(s): 46475800, 399111394 Code(s): E10.9 - TYPE 1 DIABETES MELLITUS WITHOUT COMPLICATIONS Status: Chronic Priority: High Current Visit: No (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 SNOMED Code(s): 29423156 Code(s): E11.620 - TYPE 2 DIABETES MELLITUS WITH DIABETIC DERMATITIS Status: Chronic Priority: High Current Visit: No (12) HTN (hypertension) SNOMED Code(s): 50866177 Code(s): I10 - ESSENTIAL (PRIMARY) HYPERTENSION Status: Chronic Current Visit: No Qualifiers: Hypertension type: essential hypertension Qualified Code(s): I10 - Essential (primary) hypertension (13) GERD (gastroesophageal reflux disease) SNOMED Code(s): 471210142 Code(s): K21.9 - GASTRO-ESOPHAGEAL REFLUX DISEASE WITHOUT ESOPHAGITIS Status: Chronic Current Visit: No Qualifiers: Esophagitis presence: without esophagitis Qualified Code(s): K21.9 - Gastro-esophageal reflux disease without esophagitis - Problem List Review Problem List Initiated/Reviewed/Updated: Yes - My Orders Last 24 Hours: My Active Orders 06/17/20 08:00 Potassium Chloride [Klor-Con M20] 40 meq PO BID@0800,1600 06/17/20 12:24 SODIUM,URINE RANDOM [URCHEM] Routine 06/18/20 05:11 CBC WITH AUTO DIFF [HEME] AM COMPREHENSIVE METABOLIC PN,CMP [CHEM] AM MAGNESIUM [CHEM] AM 06/18/20 09:00 Spironolactone [Aldactone] 50 mg PO DAILY 06/19/20 05:11 CBC WITH AUTO DIFF [HEME] AM COMPREHENSIVE METABOLIC PN,CMP [CHEM] AM MAGNESIUM [CHEM] AM 06/20/20 05:11 CBC WITH AUTO DIFF [HEME] AM COMPREHENSIVE METABOLIC PN,CMP [CHEM] AM MAGNESIUM [CHEM] AM 06/21/20 05:11 CBC WITH AUTO DIFF [HEME] AM COMPREHENSIVE METABOLIC PN,CMP [CHEM] AM MAGNESIUM [CHEM] AM 06/22/20 05:11 CBC WITH AUTO DIFF [HEME] AM COMPREHENSIVE METABOLIC PN,CMP [CHEM] AM MAGNESIUM [CHEM] AM - Plan Plan:: 65 yo female admitted for anasarca 1. Anasarca likely secondary to cirrhosis -Continue Lasix 60 mg 3 times daily IV increased last evening, reports she feels she is voiding more - Continue fluid restriction 1.8 L and Low sodium -Increase Spironolactone to 50 mg daily -Monitor blood pressure -Send referral to GI specialist for cirrhosis -Monitor electrolytes daily and replace as needed, noted today hypokalemia -Echo pending to evaluate for heart failure 2. L toe cellulitis -Improving -Continue Vancomycin -Cellulitis noted to left second toe MRI rules out osteomyelitis but does show soft tissue swelling continue vancomycin -Wound care consulted for left foot heel ulcer as well as toe ulcer-recommends follow-up with Dr. Angelo we will arrange this as an outpatient. Patient has previously seen Dr. Villegas for same wounds. 3. UTI/PNA - Tonight is last dose of Rocephin and azithromycin -UC mixed damion 10,000 colonies. 4. DM type I -Wears continuous glucose monitor -Continue NovoLog sliding scale - Continue Long acting insulin -Continue diabetic diet 5. CAD/PAD/hypertension -Continue Plavix and aspirin -Monitor blood pressure with increasing doses of spironolactone and Lasix -Continue losartan, Zetia, Imdur 6. Chronic pain: - Continue home Tylenol # 4 7. COPD -Continue home inhalers -Stable VTE prophylaxis: Heparin CODE STATUS: Full code Dispo 2 days pending improvement.
[2020-06-17] MEDS: Folic Acid 1 MG Tab PO SCH (20:49)
[2020-06-17] MEDS: Thiamine 100 MG Tab PO SCH (20:50)
[2020-06-17] MEDS ORDERED: Insulin Glargine,Human Rec. Analog 100 Units/ML 3 ML Pen SUBCUT SCH (21:00)
[2020-06-18] MEDS: Heparin Sodium 5,000 Units/ML Vial SUBCUT SCH ×2 (00:29→12:44)
[2020-06-18] MEDS: Azithromycin 500 MG in Sodium Chloride 0.9% 250 ML IV SCH (00:32)
[2020-06-18] MEDS: cefTRIAXone 1 GM in Premix Bag 1 BAG IV SCH (01:40)
[2020-06-18] MEDS: TYLENOL PO PRN ×4 (05:19→21:42)
[2020-06-18] MEDS: Propranolol 20 MG Tab PO SCH ×3 (06:22→21:35)
[2020-06-18] MEDS: Furosemide 40 MG/4 ML VIAL IVPUSH SCH ×3 (06:23→21:38)
[2020-06-18] MEDS: Insulin Aspart 100 Units/ML 3 ML Pen SUBCUT SCH ×5 (08:47→17:00)
[2020-06-18] MEDS: Losartan 50 MG Tab PO SCH (08:48)
[2020-06-18] MEDS: Metolazone 5 MG Tab PO SCH (08:48)
[2020-06-18] MEDS: amLODIPine 5 MG Tab PO SCH (08:49)
[2020-06-18] MEDS: Fludrocortisone 0.1 MG Tab PO SCH (08:49)
[2020-06-18] MEDS: Sodium Bicarbonate 650 MG Tab PO SCH ×2 (08:49→17:03)
[2020-06-18] MEDS: Aspirin 81 MG Tab.Chew PO SCH (08:49)
[2020-06-18] MEDS: Pantoprazole 40 MG Tab.CR PO SCH (08:49)
[2020-06-18] MEDS: Isosorbide Mononitrate 30 MG Tab.ER PO SCH (08:49)
[2020-06-18] MEDS: Potassium Chloride 20 MEQ Tab.ER PO SCH (08:49)
[2020-06-18] MEDS: Ezetimibe 10 MG Tab PO SCH (08:50)
[2020-06-18] MEDS: Spironolactone 25 MG Tab PO SCH (08:50)
[2020-06-18] MEDS: Clopidogrel 75 MG Tab PO SCH (08:50)
[2020-06-18] MEDS: ANORO ELLIPTA INH SCH (09:16)
[2020-06-18] MEDS ORDERED: acetaZOLAMIDE 250 MG Tab PO ONE (11:16)
--- NOTE | 2020-06-18 11:16 | PCM.PN ---
- General Info Date of Service: 06/18/20 Admission Dx/Problem (Free Text): Admission Diagnosis/Problem Admission Diagnosis/Problem Ascites Subjective Update: Reports she is feeling somewhat improved today. Had hypoglycemic episode this morning. Reports that she snacks a lot of the day and eats a lot of the evening and her hyperglycemia in the evening. Reports mild improvement in edema. She is up ambulating and exercising in the room per self increasing her mobility. Functional Status: Reports: Pain Controlled, Tolerating Diet, Ambulating, Urinating - Review of Systems General: Reports: Weakness (Generalized but is improving). Denies: Fatigue, Malaise HEENT: Reports: No Symptoms. Denies: Headaches, Visual Changes Pulmonary: Reports: No Symptoms. Denies: Shortness of Breath Cardiovascular: Reports: Edema. Denies: Chest Pain Gastrointestinal: Reports: No Symptoms. Denies: Abdominal Pain, Nausea, Vomiting Genitourinary: Reports: No Symptoms. Denies: Dysuria, Frequency, Burning 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: Reports: No Symptoms Skin: Reports: No Symptoms Neurological: Reports: No Symptoms Psychiatric: Reports: No Symptoms - Patient Data Vitals - Most Recent: Last Vital Signs Temp 98 F 06/18/20 08:00 Pulse 62 06/18/20 08:00 Resp 18 06/18/20 08:00 BP 128/80 06/18/20 08:49 Pulse Ox 96 06/18/20 08:00 Weight - Most Recent: 46.3 kg I&O - Last 24 Hours: Intake & Output 06/17/20 06/18/20 06/18/20 22:59 06:59 14:59 Intake Total 920 1000 Output Total 1850 1500 Balance -930 -500 Lab Results Last 24 Hours: Laboratory Results - last 24 hr 06/17/20 06/17/20 06/17/20 Range/Units 11:52 13:30 17:45 WBC (4.0-11.0) K/uL RBC (4.30-5.90) M/uL Hgb (12.0-16.0) g/dL Hct (36.0-46.0) % MCV (80.0-98.0) fL MCH (27.0-32.0) pg MCHC (31.0-37.0) g/dL RDW Std Deviation (28.0-62.0) fl RDW Coeff of [place] (11.0-15.0) % Plt Count (150-400) K/uL MPV (7.40-12.00) fL Neut % (Auto) (48.0-80.0) % Lymph % (Auto) (16.0-40.0) % [place] % (Auto) (0.0-15.0) % Eos % (Auto) (0.0-7.0) % Baso % (Auto) (0.0-1.5) % Neut # (Auto) (1.4-5.7) K/uL Lymph # (Auto) (0.6-2.4) K/uL [place] # (Auto) (0.0-0.8) K/uL Eos # (Auto) (0.0-0.7) K/uL Baso # (Auto) (0.0-0.1) K/uL Nucleated RBC % /100WBC Nucleated RBCs # K/uL Sodium (136-145) mmol/L Potassium (3.5-5.1) mmol/L Chloride (98-107) mmol/L Carbon Dioxide (21.0-32.0) mmol/L BUN (7.0-18.0) mg/dL Creatinine (0.6-1.0) mg/dL Est Cr Clr Drug Dosing mL/min Estimated GFR (MDRD) ml/min Glucose (74-106) mg/dL POC Glucose 190 H 473 H (60-110) mg/dL Calcium (8.5-10.1) mg/dL Magnesium (1.8-2.4) mg/dL Total Bilirubin (0.2-1.0) mg/dL AST (15-37) IU/L ALT (14-63) IU/L Alkaline Phosphatase (46-116) U/L Total Protein (6.4-8.2) g/dL Albumin (3.4-5.0) g/dL Globulin (2.6-4.0) g/dL Albumin/Globulin Ratio (0.9-1.6) Ur Random Sodium 98.0 (40.0-220.0) mmol/L 06/17/20 06/17/20 06/18/20 Range/Units 20:29 22:19 04:50 WBC 13.14 H (4.0-11.0) K/uL RBC 3.26 L (4.30-5.90) M/uL Hgb 10.0 L (12.0-16.0) g/dL Hct 30.3 L (36.0-46.0) % MCV 92.9 (80.0-98.0) fL MCH 30.7 (27.0-32.0) pg MCHC 33.0 (31.0-37.0) g/dL RDW Std Deviation 56.9 (28.0-62.0) fl RDW Coeff of [place] 17 H (11.0-15.0) % Plt Count 422 H (150-400) K/uL MPV 9.80 (7.40-12.00) fL Neut % (Auto) 58.4 (48.0-80.0) % Lymph % (Auto) 24.8 (16.0-40.0) % [place] % (Auto) 14.5 (0.0-15.0) % Eos % (Auto) 1.8 (0.0-7.0) % Baso % (Auto) 0.5 (0.0-1.5) % Neut # (Auto) 7.7 H (1.4-5.7) K/uL Lymph # (Auto) 3.3 H (0.6-2.4) K/uL [place] # (Auto) 1.9 H (0.0-0.8) K/uL Eos # (Auto) 0.2 (0.0-0.7) K/uL Baso # (Auto) 0.1 (0.0-0.1) K/uL Nucleated RBC % 0.0 /100WBC Nucleated RBCs # 0 K/uL Sodium (136-145) mmol/L Potassium (3.5-5.1) mmol/L Chloride (98-107) mmol/L Carbon Dioxide (21.0-32.0) mmol/L BUN (7.0-18.0) mg/dL Creatinine (0.6-1.0) mg/dL Est Cr Clr Drug Dosing mL/min Estimated GFR (MDRD) ml/min Glucose (74-106) mg/dL POC Glucose 399 H 381 H (60-110) mg/dL Calcium (8.5-10.1) mg/dL Magnesium (1.8-2.4) mg/dL Total Bilirubin (0.2-1.0) mg/dL AST (15-37) IU/L ALT (14-63) IU/L Alkaline Phosphatase (46-116) U/L Total Protein (6.4-8.2) g/dL Albumin (3.4-5.0) g/dL Globulin (2.6-4.0) g/dL Albumin/Globulin Ratio (0.9-1.6) Ur Random Sodium (40.0-220.0) mmol/L 06/18/20 06/18/20 06/18/20 Range/Units 04:50 04:57 05:46 WBC (4.0-11.0) K/uL RBC (4.30-5.90) M/uL Hgb (12.0-16.0) g/dL Hct (36.0-46.0) % MCV (80.0-98.0) fL MCH (27.0-32.0) pg MCHC (31.0-37.0) g/dL RDW Std Deviation (28.0-62.0) fl RDW Coeff of [place] (11.0-15.0) % Plt Count (150-400) K/uL MPV (7.40-12.00) fL Neut % (Auto) (48.0-80.0) % Lymph % (Auto) (16.0-40.0) % [place] % (Auto) (0.0-15.0) % Eos % (Auto) (0.0-7.0) % Baso % (Auto) (0.0-1.5) % Neut # (Auto) (1.4-5.7) K/uL Lymph # (Auto) (0.6-2.4) K/uL [place] # (Auto) (0.0-0.8) K/uL Eos # (Auto) (0.0-0.7) K/uL Baso # (Auto) (0.0-0.1) K/uL Nucleated RBC % /100WBC Nucleated RBCs # K/uL Sodium 136 (136-145) mmol/L Potassium 4.0 (3.5-5.1) mmol/L Chloride 98 (98-107) mmol/L Carbon Dioxide 39.0 H (21.0-32.0) mmol/L BUN 15 (7.0-18.0) mg/dL Creatinine 1.0 (0.6-1.0) mg/dL Est Cr Clr Drug Dosing 42.98 mL/min Estimated GFR (MDRD) 55.8 ml/min Glucose 36 L* (74-106) mg/dL POC Glucose 27 L 160 H (60-110) mg/dL Calcium 7.9 L (8.5-10.1) mg/dL Magnesium 1.8 (1.8-2.4) mg/dL Total Bilirubin 0.3 (0.2-1.0) mg/dL AST 33 (15-37) IU/L ALT 32 (14-63) IU/L Alkaline Phosphatase 127 H (46-116) U/L Total Protein 5.0 L (6.4-8.2) g/dL Albumin 1.4 L (3.4-5.0) g/dL Globulin 3.6 (2.6-4.0) g/dL Albumin/Globulin Ratio 0.4 L (0.9-1.6) Ur Random Sodium (40.0-220.0) mmol/L 06/18/20 Range/Units 07:59 WBC (4.0-11.0) K/uL RBC (4.30-5.90) M/uL Hgb (12.0-16.0) g/dL Hct (36.0-46.0) % MCV (80.0-98.0) fL MCH (27.0-32.0) pg MCHC (31.0-37.0) g/dL RDW Std Deviation (28.0-62.0) fl RDW Coeff of [place] (11.0-15.0) % Plt Count (150-400) K/uL MPV (7.40-12.00) fL Neut % (Auto) (48.0-80.0) % Lymph % (Auto) (16.0-40.0) % [place] % (Auto) (0.0-15.0) % Eos % (Auto) (0.0-7.0) % Baso % (Auto) (0.0-1.5) % Neut # (Auto) (1.4-5.7) K/uL Lymph # (Auto) (0.6-2.4) K/uL [place] # (Auto) (0.0-0.8) K/uL Eos # (Auto) (0.0-0.7) K/uL Baso # (Auto) (0.0-0.1) K/uL Nucleated RBC % /100WBC Nucleated RBCs # K/uL Sodium (136-145) mmol/L Potassium (3.5-5.1) mmol/L Chloride (98-107) mmol/L Carbon Dioxide (21.0-32.0) mmol/L BUN (7.0-18.0) mg/dL Creatinine (0.6-1.0) mg/dL Est Cr Clr Drug Dosing mL/min Estimated GFR (MDRD) ml/min Glucose (74-106) mg/dL POC Glucose 107 (60-110) mg/dL Calcium (8.5-10.1) mg/dL Magnesium (1.8-2.4) mg/dL Total Bilirubin (0.2-1.0) mg/dL AST (15-37) IU/L ALT (14-63) IU/L Alkaline Phosphatase (46-116) U/L Total Protein (6.4-8.2) g/dL Albumin (3.4-5.0) g/dL Globulin (2.6-4.0) g/dL Albumin/Globulin Ratio (0.9-1.6) Ur Random Sodium (40.0-220.0) mmol/L Med Orders - Current: Current Medications Acetaminophen (Tylenol) 325 mg PO Q6H PRN PRN Reason: Pain Acetazolamide (Diamox) 500 mg PO ONETIME ONE Stop: 06/18/20 11:17 Albuterol (Ventolin Hfa) 0 gm INH Q4H PRN PRN Reason: Shortness of Breath Amlodipine Besylate (Norvasc) 5 mg PO DAILY [facility] Last Admin: 06/18/20 08:49 Dose: 5 mg Documented by: Aspirin (Aspirin) 81 mg PO DAILY [facility] Last Admin: 06/18/20 08:49 Dose: 81 mg Documented by: Calcium Carbonate/Glycine (Tums) 500 mg PO TID PRN PRN Reason: Indigestion Last Admin: 06/15/20 13:31 Dose: 500 mg Documented by: Carisoprodol (Soma) 350 mg PO TID PRN PRN Reason: Muscle Spasm Last Admin: 06/17/20 20:48 Dose: 350 mg Documented by: Clopidogrel Bisulfate (Plavix) 75 mg PO DAILY [facility] Last Admin: 06/18/20 08:50 Dose: 75 mg Documented by: Dextrose/Water (Dextrose 50% In Water) 50 ml IVPUSH ASDIRECTED PRN PRN Reason: Hypoglycemia Last Admin: 06/18/20 05:09 Dose: 50 ml Documented by: Ezetimibe (Zetia) 10 mg PO DAILY [facility] Last Admin: 06/18/20 08:50 Dose: 10 mg Documented by: Fludrocortisone Acetate (Florinef) 0.1 mg PO DAILY [facility] Last Admin: 06/18/20 08:49 Dose: 0.1 mg Documented by: Folic Acid (Folic Acid) 1 mg PO BEDTIME [facility] Last Admin: 06/17/20 20:49 Dose: 1 mg Documented by: Furosemide (Lasix) 60 mg IVPUSH TID [facility] Last Admin: 06/18/20 06:23 Dose: 60 mg Documented by: Glucagon (Glucagen) 1 mg IM ASDIRECTED PRN PRN Reason: Hypoglycemia Glucagon (Glucagen) 1 mg IM ASDIRECTED PRN PRN Reason: Hypoglycemia Heparin Sodium (Porcine) (Heparin Sodium) 5,000 units SUBCUT Q12H [facility] Last Admin: 06/18/20 00:29 Dose: 5,000 units Documented by: Vancomycin HCl 1 gm/ Sodium (Chloride) 250 mls @ 166.667 mls/hr IV Q24H [facility] Last Admin: 06/17/20 14:11 Dose: 166.667 mls/hr Documented by: Insulin Aspart (Novolog) 0 unit SUBCUT TIDAC [facility]; Protocol Insulin Aspart (Novolog) 5 unit SUBCUT TIDMEALS [facility] Insulin Glargine (Lantus Solostar) 4 units SUBCUT BEDTIME [facility] Isosorbide Mononitrate (Imdur) 30 mg PO DAILY [facility] Last Admin: 06/18/20 08:49 Dose: 30 mg Documented by: Lorazepam (Ativan) 0 mg PO Q4H PRN; Protocol PRN Reason: CIWAA Losartan Potassium (Cozaar) 25 mg PO DAILY [facility] Last Admin: 06/18/20 08:48 Dose: 25 mg Documented by: Metolazone (Zaroxolyn) 5 mg PO DAILY [facility] Last Admin: 06/18/20 08:48 Dose: 5 mg Documented by: Ondansetron HCl (Zofran) 4 mg IVPUSH Q4H PRN PRN Reason: Nausea Pantoprazole Sodium (Protonix) 40 mg PO DAILY [facility] Last Admin: 06/18/20 08:49 Dose: 40 mg Documented by: Patient's Own MedicationTylenol #4 2 each PO Q4HR PRN PRN Reason: Pain Last Admin: 06/18/20 10:42 Dose: 2 each Documented by: Anoro Ellipta 1 each INH DAILY [facility] Last Admin: 06/18/20 09:16 Dose: 1 each Documented by: Propranolol HCl (Inderal) 10 mg PO TID [facility] Last Admin: 06/18/20 06:22 Dose: 10 mg Documented by: Sodium Bicarbonate (Sodium Bicarbonate) 650 mg PO BIDMEALS [facility] Last Admin: 06/18/20 08:49 Dose: 650 mg Documented by: Spironolactone (Aldactone) 50 mg PO DAILY [facility] Last Admin: 06/18/20 08:50 Dose: 50 mg Documented by: Thiamine HCl (Vitamin B-1) 100 mg PO BEDTIME [facility] Last Admin: 06/17/20 20:50 Dose: 100 mg Documented by: Discontinued Medications Bumetanide (Bumex) 1 mg IVPUSH TID [facility] Last Admin: 06/14/20 17:24 Dose: Not Given Documented by: Dextrose/Water (Dextrose 50% In Water) 50 ml IV ASDIRECTED PRN PRN Reason: Hypoglycemia Dextrose/Water (Dextrose 50% In Water) 50 ml IV ASDIRECTED PRN PRN Reason: Hypoglycemia Dextrose/Water (Dextrose 50% In Water) 50 ml IVPUSH ASDIRECTED PRN PRN Reason: Hypoglycemia Dextrose/Water (Dextrose 50% In Water) 50 ml IV ASDIRECTED PRN PRN Reason: Hypoglycemia Fentanyl (Sublimaze) 50 mcg IVPUSH ONETIME ONE Stop: 06/11/20 16:10 Last Admin: 06/11/20 16:54 Dose: 50 mcg Documented by: Furosemide (Lasix) 40 mg IVPUSH NOW ONE Stop: 06/11/20 19:59 Last Admin: 12/29/20 20:05 Dose: 40 mg Documented by: Furosemide (Lasix) 40 mg IV BID [facility] Last Admin: 06/13/20 08:27 Dose: 40 mg Documented by: Furosemide (Lasix) 40 mg IV TID [facility] Last Admin: 06/14/20 15:24 Dose: Not Given Documented by: Furosemide (Lasix) 40 mg IVPUSH TID [facility] Last Admin: 06/16/20 06:26 Dose: 40 mg Documented by: Furosemide (Lasix) Confirm Administered Dose 40 mg .ROUTE .STK-MED ONE Stop: 06/14/20 17:11 Last Admin: 06/14/20 17:13 Dose: 40 mg Documented by: Glucagon (Glucagen) 1 mg IM ASDIRECTED PRN PRN Reason: Hypoglycemia Glucagon (Glucagen) 1 mg IM ASDIRECTED PRN PRN Reason: Hypoglycemia Glucagon (Glucagen) 1 mg IM ASDIRECTED PRN PRN Reason: Hypoglycemia Ceftriaxone Sodium/Dextrose 1 (gm/ Premix) 50 mls @ 100 mls/hr IV Q24H [facility] Stop: 06/18/20 01:14 Last Admin: 06/18/20 01:40 Dose: 100 mls/hr Documented by: Azithromycin 500 mg/ Sodium (Chloride) 250 mls @ 250 mls/hr IV Q24H [facility] Stop: 06/18/20 01:44 Last Admin: 06/18/20 00:32 Dose: 250 mls/hr Documented by: Magnesium Sulfate (Magnesium Sulfate In Water Premix) 2 gm in 50 mls @ 50 mls/hr IV ONETIME ONE Stop: 06/12/20 12:16 Last Admin: 06/12/20 13:39 Dose: 50 mls/hr Documented by: Vancomycin HCl 1 gm/ Sodium (Chloride) 250 mls @ 166.667 mls/hr IV Q24H [facility] Last Admin: 06/12/20 14:53 Dose: 166.667 mls/hr Documented by: Insulin Aspart (Novolog) 0 unit SUBCUT TIDAC [facility]; Protocol Last Admin: 06/12/20 11:15 Dose: Not Given Documented by: Insulin Aspart (Novolog) 0 unit SUBCUT TIDAC [facility]; Protocol Last Admin: 06/12/20 09:26 Dose: 4 units Documented by: Insulin Aspart (Novolog) 0 unit SUBCUT TIDAC [facility]; Protocol Last Admin: 06/18/20 08:47 Dose: Not Given Documented by: Insulin Aspart (Novolog) 10 unit SUBCUT ONETIME ONE Stop: 06/15/20 19:49 Last Admin: 06/15/20 20:14 Dose: 10 units Documented by: Insulin Aspart (Novolog) 10 unit SUBCUT ONETIME ONE Stop: 06/15/20 23:36 Last Admin: 06/15/20 23:41 Dose: 10 units Documented by: Insulin Aspart (Novolog) 10 unit SUBCUT STAT ONE Stop: 06/16/20 19:09 Last Admin: 06/16/20 19:46 Dose: 10 unit Documented by: Insulin Glargine (Lantus Solostar) 15 units SUBCUT BEDTIME [facility] Last Admin: 06/13/20 02:48 Dose: Not Given Documented by: Insulin Glargine (Lantus Solostar) 4 units SUBCUT BEDTIME [facility] Last Admin: 06/16/20 21:38 Dose: 4 units Documented by: Insulin Glargine (Lantus Solostar) 11 units SUBCUT ONETIME ONE Stop: 06/16/20 23:28 Last Admin: 06/16/20 23:52 Dose: 11 units Documented by: Insulin Glargine (Lantus Solostar) 15 units SUBCUT BEDTIME [facility] Last Admin: 06/17/20 22:20 Dose: 15 units Documented by: Iopamidol (Isovue Multipack-370 (76%)) 80 ml IVPUSH ONETIME STA Stop: 06/11/20 16:47 Last Admin: 06/11/20 16:54 Dose: 80 ml Documented by: Magnesium Sulfate (Magnesium Sulfate In Water Premix) 2 gm IV ONETIME ONE Stop: 06/14/20 14:36 Last Admin: 06/14/20 17:16 Dose: 2 gm Documented by: Morphine Sulfate (Morphine) 2 mg IVPUSH ONETIME ONE Stop: 06/11/20 18:54 Last Admin: 06/11/20 18:57 Dose: 2 mg Documented by: Ondansetron HCl (Zofran) 4 mg IVPUSH ONETIME ONE Stop: 06/11/20 16:10 Last Admin: 06/11/20 16:54 Dose: 4 mg Documented by: Anoro Ellipta 0 each INH BID [facility] Last Admin: 01/02/21 09:52 Dose: Not Given Documented by: Potassium Chloride (Klor-Con 10) 40 meq PO BID [facility] Last Admin: 06/12/20 20:19 Dose: 40 meq Documented by: Potassium Chloride (Klor-Con M20) 20 meq PO ONETIME ONE Stop: 06/13/20 08:09 Last Admin: 06/13/20 08:27 Dose: 20 meq Documented by: Potassium Chloride (Klor-Con M20) 40 meq PO ONETIME ONE Stop: 06/15/20 09:36 Last Admin: 06/15/20 10:19 Dose: 40 meq Documented by: Potassium Chloride (Klor-Con M20) 40 meq PO BID@0800,1600 [facility] Last Admin: 06/18/20 08:49 Dose: 40 meq Documented by: Spironolactone (Aldactone) 25 mg PO DAILY [facility] Last Admin: 06/17/20 08:23 Dose: 25 mg Documented by: Spironolactone (Aldactone) 25 mg PO ONETIME ONE Stop: 06/17/20 11:03 Last Admin: 06/17/20 11:14 Dose: 25 mg Documented by: Vancomycin HCl (Pharmacy To Dose - Vancomycin) 1 dose .XX ONETIME ONE Stop: 06/12/20 11:41 Last Admin: 06/12/20 14:52 Dose: Not Given Documented by: - Exam Quality Assessment: DVT Prophylaxis. No: Supplemental Oxygen General: Alert, Oriented, Cooperative, No Acute Distress Lungs: Clear to Auscultation, Normal Respiratory Effort Cardiovascular: Regular Rate, Regular Rhythm GI/Abdominal Exam: Normal Bowel Sounds, Soft, Non-Tender Extremities: Normal Inspection, Normal Range of Motion, Non-Tender, No Pedal Edema Neurological: No New Focal Deficit Psy/Mental Status: Alert, Normal Affect, Normal Mood Sepsis Event Note - Evaluation Sepsis Screening Result: No Definite Risk - Focused Exam Vital Signs: Vital Signs Temp Pulse Resp BP BP Pulse Ox Pulse Ox 06/18/20 08:49 128/80 06/18/20 08:48 128/80 06/18/20 08:00 98 F 62 18 128/80 96 96 06/18/20 04:00 98.0 F 60 18 120/79 95 06/18/20 00:36 97.5 F 61 16 126/57 L 96 - Problem List & Annotations (1) Cirrhosis SNOMED Code(s): 66658867 Code(s): K74.60 - UNSPECIFIED CIRRHOSIS OF LIVER Status: Acute Current Visit: Yes Qualifiers: Hepatic cirrhosis type: alcoholic cirrhosis (2) Anasarca SNOMED Code(s): 435266290, 892800514 Code(s): R60.1 - GENERALIZED EDEMA Status: Acute Current Visit: Yes (3) Diabetic foot ulcer SNOMED Code(s): 699841849 Code(s): E11.621 - TYPE 2 DIABETES MELLITUS WITH FOOT ULCER; L97.509 - NON-PRESSURE CHRONIC ULCER OTH PRT UNSP FOOT W UNSP SEVERITY Status: Acute Current Visit: Yes Qualifiers: Diabetic foot ulcer location: heel Diabetes mellitus type: type 1 Laterality: left Non-pressure ulcer stage: limited to breakdown of skin Qualified Code(s): E10.621 - Type 1 diabetes mellitus with foot ulcer; L97.421 - Non-pressure chronic ulcer of left heel and midfoot limited to breakdown of skin (4) Hypoproteinemia SNOMED Code(s): 5190144 Code(s): E77.8 - OTHER DISORDERS OF GLYCOPROTEIN METABOLISM Status: Acute Current Visit: Yes (5) Leukocytosis SNOMED Code(s): 928001621, 798833200 Code(s): D72.829 - ELEVATED WHITE BLOOD CELL COUNT, UNSPECIFIED Status: Acute Priority: High Current Visit: Yes Qualifiers: Leukocytosis type: unspecified Qualified Code(s): D72.829 - Elevated white blood cell count, unspecified (6) Gait instability SNOMED Code(s): 65602954 Code(s): R26.81 - UNSTEADINESS ON FEET Status: Acute Current Visit: No (7) CAD (coronary artery disease) SNOMED Code(s): 50411467 Code(s): I25.10 - ATHSCL HEART DISEASE OF [place] CORONARY ARTERY W/O ANG PCTRS Status: Chronic Current Visit: No (8) COPD (chronic obstructive pulmonary disease) SNOMED Code(s): 85904179 Code(s): J44.9 - CHRONIC OBSTRUCTIVE PULMONARY DISEASE, UNSPECIFIED Status: Chronic Current Visit: No Qualifiers: COPD type: unspecified COPD Qualified Code(s): J44.9 - Chronic obstructive pulmonary disease, unspecified (9) Chronic pain SNOMED Code(s): 41610896 Code(s): G89.29 - OTHER CHRONIC PAIN Status: Chronic Current Visit: No (10) Diabetes mellitus type 1, controlled, insulin dependent SNOMED Code(s): 22508327, 888420623 Code(s): E10.9 - TYPE 1 DIABETES MELLITUS WITHOUT COMPLICATIONS Status: Chronic Priority: High Current Visit: No (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 SNOMED Code(s): 04564465 Code(s): E11.620 - TYPE 2 DIABETES MELLITUS WITH DIABETIC DERMATITIS Status: Chronic Priority: High Current Visit: No (12) HTN (hypertension) SNOMED Code(s): 59403895 Code(s): I10 - ESSENTIAL (PRIMARY) HYPERTENSION Status: Chronic Current Visit: No Qualifiers: Hypertension type: essential hypertension Qualified Code(s): I10 - Essential (primary) hypertension (13) GERD (gastroesophageal reflux disease) SNOMED Code(s): 182968288 Code(s): K21.9 - GASTRO-ESOPHAGEAL REFLUX DISEASE WITHOUT ESOPHAGITIS Status: Chronic Current Visit: No Qualifiers: Esophagitis presence: without esophagitis Qualified Code(s): K21.9 - Gastro-esophageal reflux disease without esophagitis - Problem List Review Problem List Initiated/Reviewed/Updated: Yes - My Orders Last 24 Hours: My Active Orders 06/18/20 09:00 Spironolactone [Aldactone] 50 mg PO DAILY 06/18/20 10:59 Insulin Aspart [NovoLOG] See Protocol SUBCUT TIDAC 06/18/20 11:16 acetaZOLAMIDE [Diamox] 500 mg PO ONETIME ONE 06/18/20 12:00 Insulin Aspart [NovoLOG] 5 unit SUBCUT TIDMEALS 06/18/20 21:00 Insulin Glarg,Human.Rec.Analog [LantUS Solostar] 4 units SUBCUT BEDTIME 06/19/20 05:11 CBC WITH AUTO DIFF [HEME] AM COMPREHENSIVE METABOLIC PN,CMP [CHEM] AM MAGNESIUM [CHEM] AM 06/20/20 05:11 CBC WITH AUTO DIFF [HEME] AM COMPREHENSIVE METABOLIC PN,CMP [CHEM] AM MAGNESIUM [CHEM] AM 06/21/20 05:11 CBC WITH AUTO DIFF [HEME] AM COMPREHENSIVE METABOLIC PN,CMP [CHEM] AM MAGNESIUM [CHEM] AM 06/22/20 05:11 CBC WITH AUTO DIFF [HEME] AM COMPREHENSIVE METABOLIC PN,CMP [CHEM] AM MAGNESIUM [CHEM] AM - Plan Plan:: 65 yo female admitted for anasarca 1. Anasarca likely secondary to cirrhosis -Finding net negative overnight -1400 -Continue Lasix 60 mg 3 times daily IV - Continue fluid restriction 1.8 L and Low sodium -Continue Spironolactone 50 mg daily -Monitor blood pressure -Send referral to GI specialist for cirrhosis -Monitor electrolytes daily and replace as needed, noted today hypokalemia -Echo pending to evaluate for heart failure -Bicarb elevated to 39 today we will give acetazolamide 500 mg x 1 recheck in a.m. 2. L toe cellulitis -Improving -Continue Vancomycin -Cellulitis noted to left second toe MRI rules out osteomyelitis but does show soft tissue swelling continue vancomycin -Wound care consulted for left foot heel ulcer as well as toe ulcer-recommends follow-up with Dr. Angelo we will arrange this as an outpatient. Patient has previously seen Dr. Villegas for same wounds. 3. DM type I -Wears continuous glucose monitor -Continue NovoLog sliding scale will add 5 units with each meal plus sliding scale - Continue Long acting insulin, decreased to 4 units -Continue diabetic diet 4. CAD/PAD/hypertension -Continue Plavix and aspirin -Continue losartan, Zetia, Imdur 5. Chronic pain: - Continue home Tylenol # 4 6. COPD -Continue home inhalers -Stable VTE prophylaxis: Heparin CODE STATUS: Full code Dispo 2 days pending improvement. Will need home health on discharge.
[2020-06-18] MEDS ORDERED: Insulin Glargine,Human Rec. Analog 100 Units/ML 3 ML Pen SUBCUT SCH (21:00)
[2020-06-18] MEDS: Folic Acid 1 MG Tab PO SCH (21:35)
[2020-06-18] MEDS: Thiamine 100 MG Tab PO SCH (21:38)
[2020-06-18] MEDS ORDERED: Insulin Aspart 100 Units/ML 3 ML Pen SUBCUT ONE (22:04)
[2020-06-19] MEDS: Heparin Sodium 5,000 Units/ML Vial SUBCUT SCH (00:59)
[2020-06-19 06:12] LABS: CARBON DIOXIDE,CO2 35.3 mmol/L (21.0-32.0); POTASSIUM,K 3.6 mmol/L (3.5-5.1)
[2020-06-19] MEDS: Propranolol 20 MG Tab PO SCH (06:20)
[2020-06-19] MEDS: TYLENOL PO PRN (06:21)
[2020-06-19] MEDS: Furosemide 40 MG/4 ML VIAL IVPUSH SCH (06:21)
[2020-06-19] MEDS: Insulin Aspart 100 Units/ML 3 ML Pen SUBCUT SCH ×2 (07:59)
[2020-06-19] MEDS: Clopidogrel 75 MG Tab PO SCH (08:02)
[2020-06-19] MEDS: Ezetimibe 10 MG Tab PO SCH (08:02)
[2020-06-19] MEDS: Fludrocortisone 0.1 MG Tab PO SCH (08:02)
[2020-06-19] MEDS: Aspirin 81 MG Tab.Chew PO SCH (08:02)
[2020-06-19] MEDS: Pantoprazole 40 MG Tab.CR PO SCH (08:02)
[2020-06-19] MEDS: Metolazone 5 MG Tab PO SCH (08:02)
[2020-06-19] MEDS: Sodium Bicarbonate 650 MG Tab PO SCH (08:02)
[2020-06-19] MEDS: Spironolactone 25 MG Tab PO SCH (08:03)
[2020-06-19] MEDS: ANORO ELLIPTA INH SCH (08:04)
[2020-06-19 08:10] VITALS: BP 151/66; PULSE 65
[2020-06-19] MEDS: Losartan 50 MG Tab PO SCH (08:10)
[2020-06-19] MEDS: amLODIPine 5 MG Tab PO SCH (08:10)
[2020-06-19] MEDS: Isosorbide Mononitrate 30 MG Tab.ER PO SCH (08:10)
--- NOTE | 2020-06-19 17:11 | PCM.DCSUM1 ---
Discharge Summary - Hospital Course Brief History: 65 yo female with pmh of CAD, COPD, HTN, right heel ulcer, and c.diff who presents to the ED with complaints of worsening right heel pain and abdominal distention. Patient reports chronic diarrhea, She denies any erythema a or swell of the right heel ulcer. Patient denies any chest pain, shortness of breath or fevers. Patient report a cough when she lays flat. Work up was significant for a WBC of 15,000. CT chest/abdomen/pelvis reported anasarca with mild ascities, small bibasilar pleural effusions and chronic right middle lobe infiltrate. Diagnosis: Stroke: No - Discharge Data Discharge Date: 06/19/20 Discharge Disposition: Home, W Home Health Agency Condition: Good - Referral to Home Health Date of Face to Face Encounter: 06/19/20 Reason for Homebound Status: Zakiya is homebound as she is need of caregiver to drive her to appointments along with assistive device Primary Care Physician: Oskar Verma MD Skilled Need: Zakiya is in need of fdc care due to new diagnosis of Cirrhosis and new medications and monitoring of weight and vital signs. She is also in need of PT/OT to evaluate and treat due to deconditioning and gait instability secondary to recent hospitalization. Home safety eval and evaluation of ability to completed ADLs. - Discharge Diagnosis/Problem(s) (1) Cirrhosis SNOMED Code(s): 64435833 ICD Code: K74.60 - UNSPECIFIED CIRRHOSIS OF LIVER Status: Acute Qualifiers: Hepatic cirrhosis type: alcoholic cirrhosis (2) Anasarca SNOMED Code(s): 989570989, 464466199 ICD Code: R60.1 - GENERALIZED EDEMA Status: Acute (3) Diabetic foot ulcer SNOMED Code(s): 041388378 ICD Code: E11.621 - TYPE 2 DIABETES MELLITUS WITH FOOT ULCER; L97.509 - NON- PRESSURE CHRONIC ULCER OTH PRT UNSP FOOT W UNSP SEVERITY Status: Acute Qualifiers: Diabetic foot ulcer location: heel Diabetes mellitus type: type 1 Laterality: left Non-pressure ulcer stage: limited to breakdown of skin Qualified Code(s): E10.621 - Type 1 diabetes mellitus with foot ulcer; L97.421 - Non-pressure chronic ulcer of left heel and midfoot limited to breakdown of skin (4) Hypoproteinemia SNOMED Code(s): 2908306 ICD Code: E77.8 - OTHER DISORDERS OF GLYCOPROTEIN METABOLISM Status: Acute (5) Leukocytosis SNOMED Code(s): 614748140, 892356417 ICD Code: D72.829 - ELEVATED WHITE BLOOD CELL COUNT, UNSPECIFIED Status: Acute Priority: High Qualifiers: Leukocytosis type: unspecified Qualified Code(s): D72.829 - Elevated white blood cell count, unspecified (6) Gait instability SNOMED Code(s): 86100952 ICD Code: R26.81 - UNSTEADINESS ON FEET Status: Acute (7) CAD (coronary artery disease) SNOMED Code(s): 14078760 ICD Code: I25.10 - ATHSCL HEART DISEASE OF [place] CORONARY ARTERY W/O ANG PCTRS Status: Chronic (8) COPD (chronic obstructive pulmonary disease) SNOMED Code(s): 12946864 ICD Code: J44.9 - CHRONIC OBSTRUCTIVE PULMONARY DISEASE, UNSPECIFIED Status: Chronic Qualifiers: COPD type: unspecified COPD Qualified Code(s): J44.9 - Chronic obstructive pulmonary disease, unspecified (9) Chronic pain SNOMED Code(s): 16891323 ICD Code: G89.29 - OTHER CHRONIC PAIN Status: Chronic (10) Diabetes mellitus type 1, controlled, insulin dependent SNOMED Code(s): 89603193, 460021016 ICD Code: E10.9 - TYPE 1 DIABETES MELLITUS WITHOUT COMPLICATIONS Status: Chronic Priority: High (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 SNOMED Code(s): 83955516 ICD Code: E11.620 - TYPE 2 DIABETES MELLITUS WITH DIABETIC DERMATITIS Status: Chronic Priority: High (12) HTN (hypertension) SNOMED Code(s): 89854837 ICD Code: I10 - ESSENTIAL (PRIMARY) HYPERTENSION Status: Chronic Qualifiers: Hypertension type: essential hypertension Qualified Code(s): I10 - Essential (primary) hypertension (13) GERD (gastroesophageal reflux disease) SNOMED Code(s): 733062805 ICD Code: K21.9 - GASTRO-ESOPHAGEAL REFLUX DISEASE WITHOUT ESOPHAGITIS Status: Chronic Qualifiers: Esophagitis presence: without esophagitis Qualified Code(s): K21.9 - Gastro-esophageal reflux disease without esophagitis - Patient Summary/Data Consults: Consultations 06/12/20 00:28 Consult to Wound Care Services [CONS] Routine 06/12/20 15:56 Consult to Case Management/[employer] Operator [CONS] Routine 06/12/20 16:07 PT Evaluation and Treatment [CONS] Routine 06/18/20 11:57 Consult to Home Health [CONS] Routine Hospital Course: Admission diagnoses: Anasarca Discharge diagnoses: Anasarca improved Cirrhosis Cellulitis left second toe Other PMH: COPD CAD PAD Chronic pain HTN GERD DM type I Zakiya was admitted secondary to new onset of anasarca. Echo was obtained which showed no significant heart disease. But ultrasound of her liver revealed s ignificant cirrhosis. No transaminitis or hyperbilirubinemia noted. Through talking with her as well as significant other time it has been noted that she has had consistent alcohol use for many years. She reports that she has been drinking 3-4 alcoholic beverages every evening with some increased use every now and then. She does have a history of hepatitis in the past but reports she thinks she was treated for this. She was treated with Lasix which was slowly increased due to poor diuresis. She recently has been on Lasix 60 mg IV 3 times daily along with metolazone 5 mg daily. Spironolactone was also started and increased up to 50 mg daily. The last 2 days she has finally had significant diuresis upwards of 1500 yesterday as well as -4000 today. She is feeling much improved continues to have anasarca but again is improved. Ascites was noted but not significant enough for paracentesis. Hepatitis panel was obtained a couple years ago repeat pending on admission. She was counseled heavily on sobriety as an further alcohol use will continue to damage her liver. She will be discharged home today with Lasix 40 mg twice daily metolazone 5 mg every other day and spironolactone 50 mg daily. She will be referred to GI specialty for cirrhosis. She was also noted to have cellulitis to left toe with ulceration. MRI was obtained no osteomyelitis was noted. She was treated with vancomycin she will have follow-up with Dr. Villegas, podiatry, in the next week for further evaluation and treatment. She will be discharged home on doxycycline for 5 more days. She was also treated with Rocephin and azithromycin for suspected pneumonia she will received full treatment during her stay here. She is to continue all home medications with no changes. Blood pressure maintained during aggressive diuresis. She was counseled on new medications she will also be sent home with home health with PT OT for evaluation and treatment and home safety evaluation. She will be discharged home today follow-up with PCP is scheduled for Wednesday with Dr. Verma. She is to return to the ER or clinic sooner if concerns should arise. - Patient Instructions Diet: Low Sodium, Diabetic Diet Fluid Restriction: 1500 mL Activity: As Tolerated, No Strenuous Activities Driving: Do Not Drive Showering/Bathing: May Shower Notify Provider of: Fever, Increased Pain, Swelling and Redness, Drainage, Nausea and/or Vomiting Other/Special Instructions: weight yourself daily and keep log for Dr Verma. Absolutely no alcohol intake. - Discharge Plan *PRESCRIPTION DRUG MONITORING PROGRAM REVIEWED*: Not Applicable *COPY OF PRESCRIPTION DRUG MONITORING REPORT IN PATIENT ESTEPHANIA: Not Applicable Prescriptions/Med Rec: Furosemide [Lasix] 40 mg PO BID #60 tablet Spironolactone 50 mg PO DAILY #30 tablet Doxycycline [Vibramycin] 100 mg PO BID #10 cap metOLazone [Zaroxolyn] 5 mg PO Q48H #30 tablet Home Medications: Home Meds Acetaminophen with Codeine [Acetaminophen-Cod #4] 2 tab PO Q4HR PRN 01/18/15 [History] Propranolol HCl 10 mg PO TID 01/18/15 [History] Sodium Bicarbonate 650 mg PO BIDMEALS 01/18/15 [History] amLODIPine [Norvasc] 5 mg PO DAILY 01/18/15 [History] Clopidogrel Bisulfate [Clopidogrel] 75 mg PO DAILY 01/21/18 [History] Pantoprazole [ProTONIX] 40 mg PO DAILY 01/21/18 [History] carisoprodoL [Carisoprodol] 350 mg PO TID PRN 01/21/18 [History] ondansetron HCL [Zofran] 4 mg PO TID PRN 01/21/18 [History] Albuterol [Ventolin HFA] 2 puff INH Q4H PRN 12/12/18 [History] Carboxymethylcellulose Sodium [Refresh Tears] 1 drop EYEBOTH ASDIRECTED PRN 12/12/18 [History] Ezetimibe 10 mg PO DAILY 12/12/18 [History] Insulin Glargine,Hum.Rec.Anlog [Basaglar Kwikpen U-100] 4 units SUBCUT BEDTIME 12/12/18 [History] Isosorbide Mononitrate [Imdur] 30 mg PO DAILY 12/12/18 [History] Nitroglycerin 0.4 mg SL .EVERY 5 MINUTES PRN MDD 3 TABLETS 12/12/18 [History] Aspirin 81 mg PO DAILY 12/14/18 [History] Glucagon [Baqsimi] 1 spray UMM ASDIRECTED PRN 01/15/20 [History] Insulin Aspart (Niacinamide) [Fiasp 100 Unit/ml Flextouch] 4 - 5 unit SUBCUT TIDMEALS MDD 25 units 01/15/20 [History] Losartan Potassium 25 mg PO DAILY 01/15/20 [History] Alendronate Sodium 35 mg PO WEEKLY 03/12/20 [History] Non-Formulary Medication [NF Drug] 1 inh IH .ANORO ELLIPTA DAILY 03/12/20 [History] Fludrocortisone [Florinef] 0.1 mg PO DAILY 06/12/20 [History] glucagon HCL [Glucagon Emergency Kit] 1 mg SUBCUT . NEEDED PRN 06/12/20 [History] Doxycycline [Vibramycin] 100 mg PO BID #10 cap 06/19/20 [Rx] Folic Acid 1 mg PO BEDTIME tablet 06/19/20 [Rx] Furosemide [Lasix] 40 mg PO BID #60 tablet 06/19/20 [Rx] Spironolactone 50 mg PO DAILY #30 tablet 06/19/20 [Rx] Thiamine [Vitamin B-1] 100 mg PO BEDTIME tablet 06/19/20 [Rx] metOLazone [Zaroxolyn] 5 mg PO Q48H #30 tablet 06/19/20 [Rx] Oxygen Therapy Mode: Room Air Patient Handouts: Alcoholic Liver Disease, [id number], Furosemide tablets, Diabetes Mellitus and Foot Care, Alcoholic Liver Disease, Spironolactone tablets, Doxycycline tablets or capsules, Metolazone tablets Referrals: Les Villegas DPM [Physician] - 06/25/20 11:00 am Oskar Verma MD [Primary Care Provider] - 06/21/20 8:30 am - Discharge Summary/Plan Comment DC Time >30 min.: No - Patient Data Vitals - Most Recent: Last Vital Signs Temp 98.7 F 06/19/20 08:00 Pulse 65 06/19/20 08:00 Resp 17 06/19/20 08:00 BP 151/66 H 06/19/20 08:10 Pulse Ox 97 06/19/20 08:00 Weight - Most Recent: 42.456 kg I&O - Last 24 hours: Intake & Output 06/19/20 06/19/20 06/19/20 06:59 14:59 22:59 Intake Total 650 400 Output Total 2200 1300 Balance -1550 -900 Lab Results - Last 24 hrs: Laboratory Results - last 24 hr 06/18/20 06/18/20 06/18/20 Range/Units 18:14 21:34 23:18 WBC (4.0-11.0) K/uL RBC (4.30-5.90) M/uL Hgb (12.0-16.0) g/dL Hct (36.0-46.0) % MCV (80.0-98.0) fL MCH (27.0-32.0) pg MCHC (31.0-37.0) g/dL RDW Std Deviation (28.0-62.0) fl RDW Coeff of [place] (11.0-15.0) % Plt Count (150-400) K/uL MPV (7.40-12.00) fL Neut % (Auto) (48.0-80.0) % Lymph % (Auto) (16.0-40.0) % [place] % (Auto) (0.0-15.0) % Eos % (Auto) (0.0-7.0) % Baso % (Auto) (0.0-1.5) % Neut # (Auto) (1.4-5.7) K/uL Lymph # (Auto) (0.6-2.4) K/uL [place] # (Auto) (0.0-0.8) K/uL Eos # (Auto) (0.0-0.7) K/uL Baso # (Auto) (0.0-0.1) K/uL Nucleated RBC % /100WBC Nucleated RBCs # K/uL Sodium (136-145) mmol/L Potassium (3.5-5.1) mmol/L Chloride (98-107) mmol/L Carbon Dioxide (21.0-32.0) mmol/L BUN (7.0-18.0) mg/dL Creatinine (0.6-1.0) mg/dL Est Cr Clr Drug Dosing mL/min Estimated GFR (MDRD) ml/min Glucose (74-106) mg/dL POC Glucose 307 H 463 H 386 H (60-110) mg/dL Calcium (8.5-10.1) mg/dL Magnesium (1.8-2.4) mg/dL Total Bilirubin (0.2-1.0) mg/dL AST (15-37) IU/L ALT (14-63) IU/L Alkaline Phosphatase (46-116) U/L Total Protein (6.4-8.2) g/dL Albumin (3.4-5.0) g/dL Globulin (2.6-4.0) g/dL Albumin/Globulin Ratio (0.9-1.6) 06/19/20 06/19/20 06/19/20 Range/Units 00:59 04:24 05:30 WBC 11.30 H (4.0-11.0) K/uL RBC 3.49 L (4.30-5.90) M/uL Hgb 10.8 L (12.0-16.0) g/dL Hct 32.8 L (36.0-46.0) % MCV 94.0 (80.0-98.0) fL MCH 30.9 (27.0-32.0) pg MCHC 32.9 (31.0-37.0) g/dL RDW Std Deviation 57.6 (28.0-62.0) fl RDW Coeff of [place] 17 H (11.0-15.0) % Plt Count 415 H (150-400) K/uL MPV 9.90 (7.40-12.00) fL Neut % (Auto) 62.2 (48.0-80.0) % Lymph % (Auto) 22.1 (16.0-40.0) % [place] % (Auto) 13.6 (0.0-15.0) % Eos % (Auto) 1.5 (0.0-7.0) % Baso % (Auto) 0.6 (0.0-1.5) % Neut # (Auto) 7.0 H (1.4-5.7) K/uL Lymph # (Auto) 2.5 H (0.6-2.4) K/uL [place] # (Auto) 1.5 H (0.0-0.8) K/uL Eos # (Auto) 0.2 (0.0-0.7) K/uL Baso # (Auto) 0.1 (0.0-0.1) K/uL Nucleated RBC % 0.0 /100WBC Nucleated RBCs # 0 K/uL Sodium (136-145) mmol/L Potassium (3.5-5.1) mmol/L Chloride (98-107) mmol/L Carbon Dioxide (21.0-32.0) mmol/L BUN (7.0-18.0) mg/dL Creatinine (0.6-1.0) mg/dL Est Cr Clr Drug Dosing mL/min Estimated GFR (MDRD) ml/min Glucose (74-106) mg/dL POC Glucose 294 H 183 H (60-110) mg/dL Calcium (8.5-10.1) mg/dL Magnesium (1.8-2.4) mg/dL Total Bilirubin (0.2-1.0) mg/dL AST (15-37) IU/L ALT (14-63) IU/L Alkaline Phosphatase (46-116) U/L Total Protein (6.4-8.2) g/dL Albumin (3.4-5.0) g/dL Globulin (2.6-4.0) g/dL Albumin/Globulin Ratio (0.9-1.6) 06/19/20 06/19/20 Range/Units 05:30 07:25 WBC (4.0-11.0) K/uL RBC (4.30-5.90) M/uL Hgb (12.0-16.0) g/dL Hct (36.0-46.0) % MCV (80.0-98.0) fL MCH (27.0-32.0) pg MCHC (31.0-37.0) g/dL RDW Std Deviation (28.0-62.0) fl RDW Coeff of [place] (11.0-15.0) % Plt Count (150-400) K/uL MPV (7.40-12.00) fL Neut % (Auto) (48.0-80.0) % Lymph % (Auto) (16.0-40.0) % [place] % (Auto) (0.0-15.0) % Eos % (Auto) (0.0-7.0) % Baso % (Auto) (0.0-1.5) % Neut # (Auto) (1.4-5.7) K/uL Lymph # (Auto) (0.6-2.4) K/uL [place] # (Auto) (0.0-0.8) K/uL Eos # (Auto) (0.0-0.7) K/uL Baso # (Auto) (0.0-0.1) K/uL Nucleated RBC % /100WBC Nucleated RBCs # K/uL Sodium 135 L (136-145) mmol/L Potassium 3.6 (3.5-5.1) mmol/L Chloride 95 L (98-107) mmol/L Carbon Dioxide 35.3 H (21.0-32.0) mmol/L BUN 13 (7.0-18.0) mg/dL Creatinine 1.1 H (0.6-1.0) mg/dL Est Cr Clr Drug Dosing 37.76 mL/min Estimated GFR (MDRD) 50.0 ml/min Glucose 133 H (74-106) mg/dL POC Glucose 172 H (60-110) mg/dL Calcium 8.3 L (8.5-10.1) mg/dL Magnesium 1.9 (1.8-2.4) mg/dL Total Bilirubin 0.4 (0.2-1.0) mg/dL AST 39 H (15-37) IU/L ALT 34 (14-63) IU/L Alkaline Phosphatase 129 H (46-116) U/L Total Protein 5.7 L (6.4-8.2) g/dL Albumin 1.7 L (3.4-5.0) g/dL Globulin 4.0 (2.6-4.0) g/dL Albumin/Globulin Ratio 0.4 L (0.9-1.6) Med Orders - Current: Current Medications Discontinued Medications Acetaminophen (Tylenol) 325 mg PO Q6H PRN PRN Reason: Pain Acetazolamide (Diamox) 500 mg PO ONETIME ONE Stop: 06/18/20 11:17 Last Admin: 06/18/20 11:42 Dose: 500 mg Documented by: Albuterol (Ventolin Hfa) 0 gm INH Q4H PRN PRN Reason: Shortness of Breath Amlodipine Besylate (Norvasc) 5 mg PO DAILY [facility] Last Admin: 06/19/20 08:10 Dose: 5 mg Documented by: Aspirin (Aspirin) 81 mg PO DAILY [facility] Last Admin: 06/19/20 08:02 Dose: 81 mg Documented by: Bumetanide (Bumex) 1 mg IVPUSH TID [facility] Last Admin: 06/14/20 17:24 Dose: Not Given Documented by: Calcium Carbonate/Glycine (Tums) 500 mg PO TID PRN PRN Reason: Indigestion Last Admin: 06/15/20 13:31 Dose: 500 mg Documented by: Carisoprodol (Soma) 350 mg PO TID PRN PRN Reason: Muscle Spasm Last Admin: 06/18/20 18:15 Dose: 350 mg Documented by: Clopidogrel Bisulfate (Plavix) 75 mg PO DAILY [facility] Last Admin: 06/19/20 08:02 Dose: 75 mg Documented by: Dextrose/Water (Dextrose 50% In Water) 50 ml IV ASDIRECTED PRN PRN Reason: Hypoglycemia Dextrose/Water (Dextrose 50% In Water) 50 ml IVPUSH ASDIRECTED PRN PRN Reason: Hypoglycemia Last Admin: 06/18/20 05:09 Dose: 50 ml Documented by: Dextrose/Water (Dextrose 50% In Water) 50 ml IV ASDIRECTED PRN PRN Reason: Hypoglycemia Dextrose/Water (Dextrose 50% In Water) 50 ml IVPUSH ASDIRECTED PRN PRN Reason: Hypoglycemia Dextrose/Water (Dextrose 50% In Water) 50 ml IV ASDIRECTED PRN PRN Reason: Hypoglycemia Ezetimibe (Zetia) 10 mg PO DAILY [facility] Last Admin: 06/19/20 08:02 Dose: 10 mg Documented by: Fentanyl (Sublimaze) 50 mcg IVPUSH ONETIME ONE Stop: 06/11/20 16:10 Last Admin: 06/11/20 16:54 Dose: 50 mcg Documented by: Fludrocortisone Acetate (Florinef) 0.1 mg PO DAILY [facility] Last Admin: 06/19/20 08:02 Dose: 0.1 mg Documented by: Folic Acid (Folic Acid) 1 mg PO BEDTIME [facility] Last Admin: 06/18/20 21:35 Dose: 1 mg Documented by: Furosemide (Lasix) 40 mg IVPUSH NOW ONE Stop: 06/11/20 19:59 Last Admin: 06/11/20 20:05 Dose: 40 mg Documented by: Furosemide (Lasix) 40 mg IV BID [facility] Last Admin: 06/13/20 08:27 Dose: 40 mg Documented by: Furosemide (Lasix) 40 mg IV TID [facility] Last Admin: 06/14/20 15:24 Dose: Not Given Documented by: Furosemide (Lasix) 40 mg IVPUSH TID [facility] Last Admin: 06/16/20 06:26 Dose: 40 mg Documented by: Furosemide (Lasix) Confirm Administered Dose 40 mg .ROUTE .STK-MED ONE Stop: 06/14/20 17:11 Last Admin: 06/14/20 17:13 Dose: 40 mg Documented by: Furosemide (Lasix) 60 mg IVPUSH TID [facility] Last Admin: 06/19/20 06:21 Dose: 60 mg Documented by: Glucagon (Glucagen) 1 mg IM ASDIRECTED PRN PRN Reason: Hypoglycemia Glucagon (Glucagen) 1 mg IM ASDIRECTED PRN PRN Reason: Hypoglycemia Glucagon (Glucagen) 1 mg IM ASDIRECTED PRN PRN Reason: Hypoglycemia Glucagon (Glucagen) 1 mg IM ASDIRECTED PRN PRN Reason: Hypoglycemia Glucagon (Glucagen) 1 mg IM ASDIRECTED PRN PRN Reason: Hypoglycemia Heparin Sodium (Porcine) (Heparin Sodium) 5,000 units SUBCUT Q12H [facility] Last Admin: 06/19/20 00:59 Dose: 5,000 units Documented by: Ceftriaxone Sodium/Dextrose 1 (gm/ Premix) 50 mls @ 100 mls/hr IV Q24H [facility] Stop: 06/18/20 01:14 Last Admin: 06/18/20 01:40 Dose: 100 mls/hr Documented by: Azithromycin 500 mg/ Sodium (Chloride) 250 mls @ 250 mls/hr IV Q24H [facility] Stop: 06/18/20 01:44 Last Admin: 06/18/20 00:32 Dose: 250 mls/hr Documented by: Magnesium Sulfate (Magnesium Sulfate In Water Premix) 2 gm in 50 mls @ 50 mls/hr IV ONETIME ONE Stop: 06/12/20 12:16 Last Admin: 06/12/20 13:39 Dose: 50 mls/hr Documented by: Vancomycin HCl 1 gm/ Sodium (Chloride) 250 mls @ 166.667 mls/hr IV Q24H [facility] Last Admin: 06/12/20 14:53 Dose: 166.667 mls/hr Documented by: Vancomycin HCl 1 gm/ Sodium (Chloride) 250 mls @ 166.667 mls/hr IV Q24H [facility] Last Admin: 06/18/20 14:19 Dose: 166.667 mls/hr Documented by: Insulin Aspart (Novolog) 0 unit SUBCUT TIDAC [facility]; Protocol Last Admin: 06/12/20 11:15 Dose: Not Given Documented by: Insulin Aspart (Novolog) 0 unit SUBCUT TIDAC [facility]; Protocol Last Admin: 06/12/20 09:26 Dose: 4 units Documented by: Insulin Aspart (Novolog) 0 unit SUBCUT TIDAC [facility]; Protocol Last Admin: 06/18/20 08:47 Dose: Not Given Documented by: Insulin Aspart (Novolog) 10 unit SUBCUT ONETIME ONE Stop: 06/15/20 19:49 Last Admin: 06/15/20 20:14 Dose: 10 units Documented by: Insulin Aspart (Novolog) 10 unit SUBCUT ONETIME ONE Stop: 06/15/20 23:36 Last Admin: 06/15/20 23:41 Dose: 10 units Documented by: Insulin Aspart (Novolog) 10 unit SUBCUT STAT ONE Stop: 06/16/20 19:09 Last Admin: 06/16/20 19:46 Dose: 10 unit Documented by: Insulin Aspart (Novolog) 0 unit SUBCUT TIDAC [facility]; Protocol Last Admin: 06/19/20 07:59 Dose: 2 unit Documented by: Insulin Aspart (Novolog) 5 unit SUBCUT TIDMEALS [facility] Last Admin: 06/19/20 07:59 Dose: 5 unit Documented by: Insulin Aspart (Novolog) 10 unit SUBCUT ONETIME ONE Stop: 06/18/20 22:05 Last Admin: 06/18/20 22:13 Dose: 10 units Documented by: Insulin Glargine (Lantus Solostar) 15 units SUBCUT BEDTIME [facility] Last Admin: 06/13/20 02:48 Dose: Not Given Documented by: Insulin Glargine (Lantus Solostar) 4 units SUBCUT BEDTIME [facility] Last Admin: 06/16/20 21:38 Dose: 4 units Documented by: Insulin Glargine (Lantus Solostar) 11 units SUBCUT ONETIME ONE Stop: 06/16/20 23:28 Last Admin: 06/16/20 23:52 Dose: 11 units Documented by: Insulin Glargine (Lantus Solostar) 15 units SUBCUT BEDTIME [facility] Last Admin: 06/17/20 22:20 Dose: 15 units Documented by: Insulin Glargine (Lantus Solostar) 4 units SUBCUT BEDTIME [facility] Last Admin: 06/18/20 22:16 Dose: 4 units Documented by: Iopamidol (Isovue Multipack-370 (76%)) 80 ml IVPUSH ONETIME STA Stop: 06/11/20 16:47 Last Admin: 06/11/20 16:54 Dose: 80 ml Documented by: Isosorbide Mononitrate (Imdur) 30 mg PO DAILY [facility] Last Admin: 06/19/20 08:10 Dose: 30 mg Documented by: Lorazepam (Ativan) 0 mg PO Q4H PRN; Protocol PRN Reason: CIWAA Losartan Potassium (Cozaar) 25 mg PO DAILY [facility] Last Admin: 06/19/20 08:10 Dose: 25 mg Documented by: Magnesium Sulfate (Magnesium Sulfate In Water Premix) 2 gm IV ONETIME ONE Stop: 06/14/20 14:36 Last Admin: 06/14/20 17:16 Dose: 2 gm Documented by: Metolazone (Zaroxolyn) 5 mg PO DAILY [facility] Last Admin: 06/19/20 08:02 Dose: 5 mg Documented by: Morphine Sulfate (Morphine) 2 mg IVPUSH ONETIME ONE Stop: 06/11/20 18:54 Last Admin: 06/11/20 18:57 Dose: 2 mg Documented by: Ondansetron HCl (Zofran) 4 mg IVPUSH ONETIME ONE Stop: 06/11/20 16:10 Last Admin: 06/11/20 16:54 Dose: 4 mg Documented by: Ondansetron HCl (Zofran) 4 mg IVPUSH Q4H PRN PRN Reason: Nausea Pantoprazole Sodium (Protonix) 40 mg PO DAILY [facility] Last Admin: 06/19/20 08:02 Dose: 40 mg Documented by: Patient's Own MedicationTylenol #4 2 each PO Q4HR PRN PRN Reason: Pain Last Admin: 06/19/20 06:21 Dose: 2 each Documented by: Mira Alvarado 0 each INH BID [facility] Last Admin: 06/15/20 09:52 Dose: Not Given Documented by: Mira Alvarado 1 each INH DAILY [facility] Last Admin: 06/19/20 08:04 Dose: 1 each Documented by: Potassium Chloride (Klor-Con 10) 40 meq PO BID [facility] Last Admin: 06/12/20 20:19 Dose: 40 meq Documented by: Potassium Chloride (Klor-Con M20) 20 meq PO ONETIME ONE Stop: 06/13/20 08:09 Last Admin: 06/13/20 08:27 Dose: 20 meq Documented by: Potassium Chloride (Klor-Con M20) 40 meq PO ONETIME ONE Stop: 06/15/20 09:36 Last Admin: 06/15/20 10:19 Dose: 40 meq Documented by: Potassium Chloride (Klor-Con M20) 40 meq PO BID@0800,1600 [facility] Last Admin: 06/18/20 08:49 Dose: 40 meq Documented by: Propranolol HCl (Inderal) 10 mg PO TID [facility] Last Admin: 06/19/20 06:20 Dose: 10 mg Documented by: Sodium Bicarbonate (Sodium Bicarbonate) 650 mg PO BIDMEALS [facility] Last Admin: 06/19/20 08:02 Dose: 650 mg Documented by: Spironolactone (Aldactone) 25 mg PO DAILY [facility] Last Admin: 06/17/20 08:23 Dose: 25 mg Documented by: Spironolactone (Aldactone) 25 mg PO ONETIME ONE Stop: 06/17/20 11:03 Last Admin: 06/17/20 11:14 Dose: 25 mg Documented by: Spironolactone (Aldactone) 50 mg PO DAILY [facility] Last Admin: 06/19/20 08:03 Dose: 50 mg Documented by: Thiamine HCl (Vitamin B-1) 100 mg PO BEDTIME [facility] Last Admin: 06/18/20 21:38 Dose: 100 mg Documented by: Vancomycin HCl (Pharmacy To Dose - Vancomycin) 1 dose .XX ONETIME ONE Stop: 06/12/20 11:41 Last Admin: 06/12/20 14:52 Dose: Not Given Documented by: - Exam General: Reports: Alert, Oriented, Cooperative Lungs: Reports: Clear to Auscultation, Normal Respiratory Effort Cardiovascular: Reports: Regular Rate, Regular Rhythm GI/Abdominal Exam: Normal Bowel Sounds, Soft, Non-Tender Back Exam: Reports: Normal Inspection, Full Range of Motion Extremities: Pedal Edema (Continues to have edema noted to abdomen and trunk. Much improved +2 pitting edema, arms much improved as well.)
--- NOTE | 2020-06-20 10:34 | ECHO ---
EXAM DATE: 06/11/20 PATIENT'S AGE: 65 The ECHO report has been scanned into [employer] and can be seen in this patient's EMR (Electronic Medical Record) under the REPORTS section. The report has also been scanned into PACS. [id number]
== END 2020-06-19 12:00 | disposition home health service (06) | DRG 432 ==
LOC: MW.ED 14:37 → MW.MS 19:58
PROVIDERS: ADMIT Internal Medicine; ATTEND Internal Medicine
DX: E11.621 Type 2 diabetes mellitus with foot ulcer (principal); K70.31 Alcoholic cirrhosis of liver with ascites; E87.1 Hypo-osmolality and hyponatremia; R60.1 Generalized edema; D72.829 Elevated white blood cell count, unspecified; J18.9 Pneumonia, unspecified organism; L97.421 Non-pressure chronic ulcer of left heel and midfoot limited to breakdown of skin; E10.621 Type 1 diabetes mellitus with foot ulcer; J44.9 Chronic obstructive pulmonary disease, unspecified; I25.10 Atherosclerotic heart disease of native coronary artery without angina pectoris; Z20.822 Contact with and (suspected) exposure to COVID-19; I10 Essential (primary) hypertension; Z79.899 Other long term (current) drug therapy; Z79.4 Long term (current) use of insulin; M81.0 Age-related osteoporosis without current pathological fracture; E11.40 Type 2 diabetes mellitus with diabetic neuropathy, unspecified; Z90.3 Acquired absence of stomach [part of]; Z87.891 Personal history of nicotine dependence; Z79.02 Long term (current) use of antithrombotics/antiplatelets; Z79.82 Long term (current) use of aspirin; H54.7 Unspecified visual loss; I25.2 Old myocardial infarction; Z20.828 Contact with and (suspected) exposure to other viral communicable diseases; Z95.5 Presence of coronary angioplasty implant and graft; K52.9 Noninfective gastroenteritis and colitis, unspecified; K21.9 Gastro-esophageal reflux disease without esophagitis; Z87.11 Personal history of peptic ulcer disease; G89.29 Other chronic pain; M54.9 Dorsalgia, unspecified; M19.90 Unspecified osteoarthritis, unspecified site; E10.42 Type 1 diabetes mellitus with diabetic polyneuropathy
CPT/HCPCS: 36415; 51702; 71250; 74178; 80053; 81001; 82140; 82150; 83690; 83735; 83880; 84100; 84439; 84443; 85025; 85610; 87086; 96374; 96375; 99285; J2270; J2405; J3010; Q9967; U0002; 73718-26-LT; 73718-LT; 76700; 76700-26; 80048; 80202; 82962; 84155; 84165; 84300; 87324; 93306; 97110-GP; 97162-GP; 99222; 99231; 99232; 99238; A9270-GY; J0456; J0696; J1644; J1815-GY; J1940; J3370; J3475; J7050

== ENCOUNTER 2020-10-12 23:10 | Inpatient (IN) | payer MEDICARE, MEDICAID ==
[2020-10-13] MEDS ORDERED: Sodium Chloride 0.9% 1,000 ML IV ONE (00:22)
[2020-10-13] MEDS ORDERED: Sodium Chloride 0.9% 10 ML Syringe FLUSH PRN (00:22)
[2020-10-13] MEDS ORDERED: Ondansetron 4 MG/2 ML SDV IVPUSH ONE (00:22)
[2020-10-13] MEDS ORDERED: Sodium Chloride 0.9% 2.5 ML Syringe FLUSH PRN (00:22)
[2020-10-13 00:47] LABS: CARBON DIOXIDE,CO2 35.3 mmol/L (21.0-32.0); POTASSIUM,K 3.6 mmol/L (3.5-5.1)
--- NOTE | 2020-10-13 02:02 | CT ---
INDICATION: Decreased p.o. intake. History of small-bowel obstruction and prior appendectomy, hysterectomy, cholecystectomy, and gastrectomy. CT ABDOMEN AND PELVIS WITHOUT CONTRAST TECHNIQUE: Multidetector CT imaging was performed through the abdomen and pelvis following intravenous contrast administration. Coronal and sagittal reconstructions were generated. COMPARISON: None. FINDINGS: Lower chest: Resolution of previously seen bilateral pleural effusions. Bibasilar bronchial wall thickening suggesting bronchitis, with multifocal mucous plugging most marked in the left lower lobe. Incompletely imaged consolidation or atelectasis of the right middle lobe. Consider chest CT for further evaluation of these findings. Liver: Within normal limits. Gallbladder and bile ducts: Status post cholecystectomy, as before. Mild dilation of the biliary tree, unchanged compared to the previous exam, consistent with post cholecystectomy reservoir effect. Mild intrahepatic pneumobilia. Pancreas: Unremarkable. Spleen: Normal. Adrenals: No nodules or masses. Kidneys, ureters, and urinary bladder: Extensive atherosclerotic calcifications of intrarenal segmental renal artery branches. Additionally, there are several nonobstructing bilateral intrarenal stones. No ureteral stones or hydronephrosis. No bladder mass or definite wall thickening. Gastrointestinal tract: Surgical clips at the esophagogastric junction, as before. Status post resection of the distal stomach with apparent gastrojejunostomy. Normal caliber bowel without apparent wall thickening or obstruction. Appendix not visualized. Vascular structures: Normal caliber abdominal aorta. Diffuse marked atherosclerotic calcification of the abdominal aorta and all medium-sized arteries of the abdomen and pelvis. Coronary artery calcifications are also present. Peritoneum: No free air, abscess, or significant free fluid. Lymph nodes: No pathologically enlarged nodes identified. Reproductive organs is status post hysterectomy, as before.: No pelvic masses. Bones: Diffuse osteopenia. Spinal degenerative changes. IMPRESSION: 1. No evidence of bowel obstruction or other acute intra-abdominal abnormality. 2. Status post distal gastrectomy with apparent gastrojejunostomy, prior cholecystectomy, and hysterectomy. 3. Bibasilar bronchial wall thickening with mucous plugging. Right middle lobe atelectasis or consolidation, incompletely imaged. Consider chest CT for further evaluation. 4. Nonacute findings as detailed above. CARLOS BRAY MD [facility] Dictated by Abdirizak Bray MD @ 10/13/2020 2:00:17 AM Dictated by: Abdirizak Bray MD @ 10/13/2020 02:01:04 (Electronically Signed)
[2020-10-13] MEDS ORDERED: Sodium Chloride 0.9% 1,000 ML IV SCH (03:15)
[2020-10-13] MEDS ORDERED: Piperacillin/Tazobactam 3.375 GM in Sodium Chloride 0.9% 50 ML IV ONE (03:17)
--- NOTE | 2020-10-13 03:23 | EDM.PDOC ---
ED HPI GENERAL MEDICAL PROBLEM - General Chief Complaint: General Stated Complaint: SICK, DIARRHEA, BP READING Time Seen by Provider: 10/13/20 00:15 - History of Present Illness INITIAL COMMENTS - FREE TEXT/NARRATIVE: HISTORY AND PHYSICAL: History of present illness: This is a 65-year-old female with a history significant for CAD, COPD, hypertension, diabetes, cirrhosis of the liver, right heel ulcer, C. difficile, who presents to the ER today complaining of generalized weakness for the last several days with decreased p.o. intake. Patient was significant other than to the ER specifically tonight because when he checked her blood pressure at home he kept getting error messages and was not able to obtain a blood pressure on her. Upon arrival to the ED, the patient denies any recent fevers, shakes, chills, vomiting, diarrhea, dysuria, frequency, urgency, chest pain, shortness of breath. Patient has any cough cold or rhinorrhea. Patient reports that she has bilateral heel ulcers that her follow up specialist has recommended that she keep elevated and not apply any pressure when laying flat. Patient reports that these heel ulcers have started to occur secondary to significant weight loss over the last several years. Patient reports she also has a history significant for a gastrectomy secondary to multiple stomach ulcers in the past she is believed secondary to her alcohol use. Review of systems: As per history of present illness and below otherwise all systems reviewed and negative. Past medical history: As per history of present illness and as reviewed below otherwise noncontributory. Surgical history: As per history of present illness and as reviewed below otherwise noncontributory. Social history: No reported history of drug abuse. Family history: As per history of present illness and as reviewed below otherwise noncontributory. Physical exam: This patient was seen and evaluated during the 2019 SARS-CoV-2 novel coronavirus pandemic period. Community viral transmission is ongoing at time of this encounter and the emergency department is operating under pandemic response procedures. Constitutional: Patient is oriented to person, place, and time. Appears well- developed and well-nourished. No distress. HEENT: Moist mucous membranes Head: Normocephalic and atraumatic Eyes: Right eye exhibits no discharge. Left eye exhibits no discharge. No scleral icterus Neck: Normal range of motion. No tracheal deviation present. Cardiovascular: Normal rate and regular rhythm. Pulmonary: Effort normal, no respiratory distress. Abd: Soft, nondistended, no rebound/guarding, no psoas or obturator signs, no tenderness at Mcberney's point, no Napier's sign. Pt does not present with an exam that would be consistent with an acute surgical abdomen at this time, nontender to palpation 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: Normal range of motion. Patient has bilateral heel ulcers with mild surrounding erythema Neurologic: Alert and oriented to person, place and time. Skin: [place], warm and dry. Psychiatric: Normal mood and affect. Behavior is normal. Judgment and thought content normal. Nursing note and vital signs have been reviewed Diagnostics: EKG: As interpreted by ER physician: [place]: Nonspecific ST-T wave abnormalities Normal axis No evidence of ST elevation AL Normal sinus rhythm heart rate of 57 Therapeutics: NSS x2 L Zosyn 3.75 mg IV Zofran 4 mg every Assessment and plan: 65-year-old female who presents ER today secondary to generalized weakness, and hypotension identified by her at home when he was unable to obtain a blood pressure reading. In the ED patient has had a significant widened pulse pressure with diastolic hypotension of unclear etiology which appears to be new for the patient. Patient's ER work-up otherwise has been unremarkable with a normal CT scan of the abdomen pelvis. Patient's white blood cell count is slightly elevated at 14,000. Patient was given 1 L of NSS wide open with out any significant improvement in her blood pressure. Patient blood pressure still has normal systolic with persistent diastolic hypertension of unclear etiology. Patient currently is on antihypertensive medications including a calcium channel christine and a beta-christine. Is unclear whether or not her hypertension is secondary to infection versus antihypertensive medications versus dehydration. Patient's BUN and creatinine are slightly elevated and her baseline. Patient will be admitted for hydration and monitoring of her BP. Patient will get started on antibiotics given her elevated WBC count and her bilateral heel ulcers with surrounding erythema of the possible source of her infection. Case discussed with Dr. Prescott who agrees with plan to the patient. Definitive disposition and diagnosis as appropriate pending reevaluation and review of above. - Related Data Allergies Allergy/AdvReac Type Severity Reaction Status Date / Time No Known Allergies Allergy Verified 06/12/20 02:53 Home Meds: Home Meds Acetaminophen with Codeine [Acetaminophen-Cod #4] 2 tab PO Q4HR PRN 01/18/15 [History] Propranolol HCl 10 mg PO TID 01/18/15 [History] Sodium Bicarbonate 650 mg PO BIDMEALS 01/18/15 [History] amLODIPine [Norvasc] 5 mg PO DAILY 01/18/15 [History] Clopidogrel Bisulfate [Clopidogrel] 75 mg PO DAILY 01/21/18 [History] Pantoprazole [ProTONIX] 40 mg PO DAILY 01/21/18 [History] carisoprodoL [Carisoprodol] 350 mg PO TID PRN 01/21/18 [History] ondansetron HCL [Zofran] 4 mg PO TID PRN 01/21/18 [History] Albuterol [Ventolin HFA] 2 puff INH Q4H PRN 12/12/18 [History] Carboxymethylcellulose Sodium [Refresh Tears] 1 drop EYEBOTH ASDIRECTED PRN 12/12/18 [History] Ezetimibe 10 mg PO DAILY 12/12/18 [History] Insulin Glargine,Hum.Rec.Anlog [Basaglar Kwikpen U-100] 4 units SUBCUT BEDTIME 12/12/18 [History] Isosorbide Mononitrate [Imdur] 30 mg PO DAILY 12/12/18 [History] Nitroglycerin 0.4 mg SL .EVERY 5 MINUTES PRN MDD 3 TABLETS 12/12/18 [History] Aspirin 81 mg PO DAILY 12/14/18 [History] Glucagon [Baqsimi] 1 spray UMM ASDIRECTED PRN 01/15/20 [History] Insulin Aspart (Niacinamide) [Fiasp 100 Unit/ml Flextouch] 4 - 5 unit SUBCUT TIDMEALS MDD 25 units 01/15/20 [History] Losartan Potassium 25 mg PO DAILY 01/15/20 [History] Alendronate Sodium 35 mg PO WEEKLY 03/12/20 [History] Non-Formulary Medication [NF Drug] 1 inh IH .ANORO ELLIPTA DAILY 03/12/20 [His tory] Fludrocortisone [Florinef] 0.1 mg PO DAILY 06/12/20 [History] glucagon HCL [Glucagon Emergency Kit] 1 mg SUBCUT . NEEDED PRN 06/12/20 [History] Doxycycline [Vibramycin] 100 mg PO BID #10 cap 06/19/20 [Rx] Folic Acid 1 mg PO BEDTIME tablet 06/19/20 [Rx] Furosemide [Lasix] 40 mg PO BID #60 tablet 06/19/20 [Rx] Spironolactone 50 mg PO DAILY #30 tablet 06/19/20 [Rx] Thiamine [Vitamin B-1] 100 mg PO BEDTIME tablet 06/19/20 [Rx] metOLazone [Zaroxolyn] 5 mg PO Q48H #30 tablet 06/19/20 [Rx] Past Medical History HEENT History: Reports: Other (See Below) Other HEENT History: wears reading glasses, upper denture Cardiovascular History: Reports: Hypertension, AL, Stents Other Cardiovascular History: Myocardial infarction 2013 Respiratory History: Reports: COPD Gastrointestinal History: Reports: Chronic Diarrhea, GERD, PUD Other Gastrointestinal History: Gastroparesis, hx gastric ulcers Genitourinary History: Reports: None [employer]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: Reports: 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 History: Reports: Back Pain, Chronic, Fracture, Osteoarthritis Other 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 History: hx fx left arm Neurological History: Reports: Neuropathy, Diabetic Other Neuro History: essential tremors Psychiatric History: Reports: None Endocrine/Metabolic History: Reports: Diabetes, Type II, Osteopenia Hematologic History: Reports: None Immunologic History: Reports: None Oncologic (Cancer) History: Reports: None Dermatologic History: Reports: Other (See Below) Other Dermatologic History: necrobiosis lipoidica - Infectious Disease History Infectious Disease History: Reports: None - Past Surgical History Head Surgeries/Procedures: Reports: None HEENT Surgical History: Reports: Cataract Surgery Cardiovascular Surgical History: Reports: Coronary Artery Stent, Other (See Below) Other Cardiovascular Surgeries/Procedures: stents x 2 Respiratory Surgical History: Reports: None GI Surgical History: Reports: Appendectomy, Cholecystectomy, Colonoscopy, EGD, Other (See Below) Other GI Surgeries/Procedures: partial gastrectomy, ERCP with insertion of TUbe into bile/pancreatic dust Female Surgical History: Reports: Section, Hysterectomy, Tubal Ligation Endocrine Surgical History: Reports: None Neurological Surgical History: Reports: None 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 Surgical History: Reports: Carpal Tunnel, Other (See Below) Other 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 Surgeries/Procedures:: surgical tx for fx left humerous surgery Oncologic Surgical History: Reports: None Dermatological Surgical History: Reports: Skin Graft Social & Family History - Family History Family Medical History: No Pertinent Family History - Tobacco Use Tobacco Use Status *Q: Former Tobacco User Used Tobacco, but Quit: Yes Month/Year Tobacco Last Used: 3 yrs - Caffeine Use Caffeine Use: Reports: Coffee Caffeine Use Comment: 1 cup of coffee every morning. 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) ED ROS GENERAL - Review of Systems Review Of Systems: See Below ED EXAM, GENERAL - Physical Exam Exam: See Below Course - Vital Signs Last Recorded V/S: Last Vital Signs Temp 96.7 F L 10/12/20 23:12 Pulse 63 10/12/20 23:12 Resp 24 H 10/12/20 23:12 BP 120/17 L 10/12/20 23:12 Pulse Ox 96 10/12/20 23:12 - Orders/Labs/Meds Orders: Active Orders 24 hr Category Date Time Status Patient Status [ADT] Routine ADT 10/13/20 03:00 Active EKG Documentation Completion [RC] AM Care 10/13/20 00:22 Active CULTURE BLOOD [BC] Stat Lab 10/13/20 03:10 Results CULTURE BLOOD [BC] Stat Lab 10/13/20 03:20 Received Sodium Chloride 0.9% [Saline Flush] Med 10/13/20 00:22 Active 10 ml FLUSH ASDIRECTED PRN Sodium Chloride 0.9% [Saline Flush] Med 10/13/20 00:22 Active 2.5 ml FLUSH ASDIRECTED PRN Blood Culture x2 Reflex Set [OM.PC] Stat Oth 10/13/20 02:58 Ordered Saline Lock Insert [OM.PC] Stat Oth 10/13/20 00:22 Ordered Medication Orders Carisoprodol (Carisoprodol 350 Mg Tab) 350 mg PO TID PRN PRN Reason: Muscle Spasm Clopidogrel Bisulfate (Clopidogrel 75 Mg Tab) 75 mg PO DAILY [facility] Dextrose/Water (50% Dextrose In Water 50 Ml Syringe) 50 ml IV ASDIRECTED PRN PRN Reason: Hypoglycemia Dextrose/Water (50% Dextrose In Water 50 Ml Syringe) 50 ml IV ASDIRECTED PRN PRN Reason: Hypoglycemia Ezetimibe (Ezetimibe 10 Mg Tab) 10 mg PO DAILY [facility] Fludrocortisone Acetate (Fludrocortisone 0.1 Mg Tab) 0.1 mg PO DAILY [facility] Glucagon (Glucagon,Human Recombinant 1 Mg Vial) 1 mg IM ASDIRECTED PRN PRN Reason: Hypoglycemia Glucagon (Glucagon,Human Recombinant 1 Mg Vial) 1 mg IM ASDIRECTED PRN PRN Reason: Hypoglycemia Sodium Chloride (Normal Saline) 1,000 mls @ 999 mls/hr IV ASDIRECTED [facility] Last Admin: 10/13/20 03:17 Dose: 999 mls/hr Documented by: [email or web address] Sodium Chloride (Normal Saline) 1,000 mls @ 125 mls/hr IV ASDIRECTED [facility] Piperacillin Sod/Tazobactam (Sod 2.25 gm/ Sodium Chloride) 50 mls @ 100 mls/hr IV Q6H [facility] Vancomycin HCl 500 mg/ Sodium (Chloride) 100 mls @ 100 mls/hr IV Q24H [facility] Insulin Aspart (Insulin Aspart 100 Units/Ml 3 Ml Pen) 0 unit SUBCUT TIDAC [facility]; Protocol Insulin Glargine (Insulin Glargine,Human Rec. Analog 100 Units/Ml 3 Ml Pen) 4 units SUBCUT BEDTIME [facility] Non-Formulary Medication (Acetaminophen With Codeine [Acetaminophen-Cod #4]) 2 tab PO Q4HR PRN PRN Reason: Pain Non-Formulary Medication (Albuterol) 2 puff INH Q4H PRN PRN Reason: Shortness of Breath Ondansetron HCl (Ondansetron 4 Mg Tab) 4 mg PO TID PRN PRN Reason: Nausea Pantoprazole Sodium (Pantoprazole 40 Mg Tab.Cr) 40 mg PO DAILY [facility] Sodium Chloride (Sodium Chloride 0.9% 10 Ml Syringe) 10 ml FLUSH ASDIRECTED PRN PRN Reason: Keep Vein Open Last Admin: 10/13/20 00:39 Dose: 10 ml Documented by: [id number] Sodium Chloride (Sodium Chloride 0.9% 2.5 Ml Syringe) 2.5 ml FLUSH ASDIRECTED PRN PRN Reason: Keep Vein Open Last Admin: 10/13/20 00:39 Dose: 2.5 ml Documented by: [id number] Thiamine HCl (Thiamine 100 Mg Tab) 100 mg PO BEDTIME [facility] Vancomycin HCl (Pharmacy To Dose - Vancomycin) 1 dose .XX ASDIRECTED [facility] Labs: Laboratory Tests 10/12/20 10/12/20 10/12/20 Range/Units 23:33 23:34 23:36 WBC 14.23 H (4.0-11.0) K/uL RBC 3.88 L (4.30-5.90) M/uL Hgb 11.8 L (12.0-16.0) g/dL Hct 34.8 L (36.0-46.0) % MCV 89.7 (80.0-98.0) fL MCH 30.4 (27.0-32.0) pg MCHC 33.9 (31.0-37.0) g/dL RDW Std Deviation 45.5 (28.0-62.0) fl RDW Coeff of Hesham 14 (11.0-15.0) % Plt Count 396 (150-400) K/uL MPV 9.90 (7.40-12.00) fL Add Manual Diff YES Neutrophils % (Manual) 75 (48.0-80.0) % Band Neutrophils % 1 % Lymphocytes % (Manual) 13 L (16.0-40.0) % Monocytes % (Manual) 9 (0.0-15.0) % Basophils % (Manual) 1 (0.0-1.5) % Metamyelocytes % 1 % Absolute Seg Neuts 10.7 H (1.4-5.7) Band Neutrophils # 0.1 Lymphocytes # (Manual) 1.8 (0.6-2.4) Monocytes # (Manual) 1.3 H (0.0-0.8) Basophils # (Manual) 0.1 (0.0-0.1) Absolute Metamyelocyte 0.1 INR APTT (18.6-31.3) SEC Sodium (136-145) mmol/L Potassium (3.5-5.1) mmol/L Chloride (98-107) mmol/L Carbon Dioxide (21.0-32.0) mmol/L BUN (7.0-18.0) mg/dL Creatinine (0.6-1.0) mg/dL Est Cr Clr Drug Dosing mL/min Estimated GFR (MDRD) ml/min Glucose (74-106) mg/dL POC Glucose 298 H (70-99) mg/dL Calcium (8.5-10.1) mg/dL Magnesium (1.8-2.4) mg/dL Total Bilirubin (0.2-1.0) mg/dL AST (15-37) IU/L ALT (14-63) IU/L Alkaline Phosphatase (46-116) U/L C-Reactive Protein 1.30 H (0.00-0.90) mg/dL Total Protein (6.4-8.2) g/dL Albumin (3.4-5.0) g/dL Globulin (2.6-4.0) g/dL Albumin/Globulin Ratio (0.9-1.6) Lipase (73-393) U/L TSH 3rd Generation (0.36-3.74) uIU/mL SARS-CoV-2 RNA ([place]) (NEGATIVE) 10/12/20 10/12/20 10/13/20 Range/Units 23:36 23:36 01:05 WBC (4.0-11.0) K/uL RBC (4.30-5.90) M/uL Hgb (12.0-16.0) g/dL Hct (36.0-46.0) % MCV (80.0-98.0) fL MCH (27.0-32.0) pg MCHC (31.0-37.0) g/dL RDW Std Deviation (28.0-62.0) fl RDW Coeff of Hesham (11.0-15.0) % Plt Count (150-400) K/uL MPV (7.40-12.00) fL Add Manual Diff Neutrophils % (Manual) (48.0-80.0) % Band Neutrophils % % Lymphocytes % (Manual) (16.0-40.0) % Monocytes % (Manual) (0.0-15.0) % Basophils % (Manual) (0.0-1.5) % Metamyelocytes % % Absolute Seg Neuts (1.4-5.7) Band Neutrophils # Lymphocytes # (Manual) (0.6-2.4) Monocytes # (Manual) (0.0-0.8) Basophils # (Manual) (0.0-0.1) Absolute Metamyelocyte INR 0.99 APTT 21.6 (18.6-31.3) SEC Sodium 131 L (136-145) mmol/L Potassium 3.6 (3.5-5.1) mmol/L Chloride 93 L (98-107) mmol/L Carbon Dioxide 35.3 H (21.0-32.0) mmol/L BUN 49 H (7.0-18.0) mg/dL Creatinine 1.5 H (0.6-1.0) mg/dL Est Cr Clr Drug Dosing 21.70 mL/min Estimated GFR (MDRD) 35.0 ml/min Glucose 342 H (74-106) mg/dL POC Glucose (70-99) mg/dL Calcium 8.1 L (8.5-10.1) mg/dL Magnesium 2.1 (1.8-2.4) mg/dL Total Bilirubin 0.5 (0.2-1.0) mg/dL AST 33 (15-37) IU/L ALT 31 (14-63) IU/L Alkaline Phosphatase 148 H (46-116) U/L C-Reactive Protein (0.00-0.90) mg/dL Total Protein 7.1 (6.4-8.2) g/dL Albumin 2.0 L (3.4-5.0) g/dL Globulin 5.1 H (2.6-4.0) g/dL Albumin/Globulin Ratio 0.4 L (0.9-1.6) Lipase 36 L (73-393) U/L TSH 3rd Generation 1.99 (0.36-3.74) uIU/mL SARS-CoV-2 RNA ([place]) NEGATIVE (NEGATIVE) Meds: Medications Generic Name Dose Route Start Last Admin Trade Name Freq PRN Reason Stop Dose Admin Carisoprodol 350 mg 10/13/20 03:24 Carisoprodol 350 Mg Tab PO TID PRN Muscle Spasm Clopidogrel Bisulfate 75 mg 10/13/20 09:00 Clopidogrel 75 Mg Tab PO DAILY [facility] Dextrose/Water 50 ml 10/13/20 03:24 50% Dextrose In Water 50 Ml Syringe IV ASDIRECTED PRN Hypoglycemia Dextrose/Water 50 ml 10/13/20 03:28 50% Dextrose In Water 50 Ml Syringe IV ASDIRECTED PRN Hypoglycemia Ezetimibe 10 mg 10/13/20 09:00 Ezetimibe 10 Mg Tab PO DAILY [facility] Fludrocortisone Acetate 0.1 mg 10/13/20 09:00 Fludrocortisone 0.1 Mg Tab PO DAILY [facility] Glucagon 1 mg 10/13/20 03:24 Glucagon,Human Recombinant 1 Mg Vial IM ASDIRECTED PRN Hypoglycemia Glucagon 1 mg 10/13/20 03:28 Glucagon,Human Recombinant 1 Mg Vial IM ASDIRECTED PRN Hypoglycemia Sodium Chloride 1,000 mls @ 999 mls/hr 10/13/20 03:15 10/13/20 03:17 Normal Saline IV 999 mls/hr ASDIRECTED [facility] Administration Sodium Chloride 1,000 mls @ 125 mls/hr 10/13/20 03:30 Normal Saline IV ASDIRECTED [facility] Piperacillin Sod/Tazobactam 50 mls @ 100 mls/hr 10/13/20 09:30 Sod 2.25 gm/ Sodium Chloride IV Q6H [facility] Vancomycin HCl 500 mg/ Sodium 100 mls @ 100 mls/hr 10/13/20 04:00 Chloride IV Q24H [facility] Insulin Aspart 0 unit 10/13/20 07:30 Insulin Aspart 100 Units/Ml 3 Ml Pen SUBCUT TIDAC [facility] Protocol Insulin Glargine 4 units 10/13/20 21:00 Insulin Glargine,Human Rec. Analog 100 Units/Ml 3 Ml Pen SUBCUT BEDTIME [facility] Non-Formulary Medication 2 tab 10/13/20 03:24 Acetaminophen With Codeine [Acetaminophen-Cod #4] PO Q4HR PRN Pain Non-Formulary Medication 2 puff 10/13/20 03:24 Albuterol INH Q4H PRN Shortness of Breath Ondansetron HCl 4 mg 10/13/20 03:24 Ondansetron 4 Mg Tab PO TID PRN Nausea Pantoprazole Sodium 40 mg 10/13/20 09:00 Pantoprazole 40 Mg Tab.Cr PO DAILY [facility] Sodium Chloride 10 ml 10/13/20 00:22 10/13/20 00:39 Sodium Chloride 0.9% 10 Ml Syringe FLUSH 10 ml ASDIRECTED PRN Administration Keep Vein Open Sodium Chloride 2.5 ml 10/13/20 00:22 10/13/20 00:39 Sodium Chloride 0.9% 2.5 Ml Syringe FLUSH 2.5 ml ASDIRECTED PRN Administration Keep Vein Open Thiamine HCl 100 mg 10/13/20 21:00 Thiamine 100 Mg Tab PO BEDTIME [facility] Vancomycin HCl 1 dose 10/13/20 03:30 Pharmacy To Dose - Vancomycin .XX ASDIRECTED [facility] Discontinued Medications Generic Name Dose Route Start Last Admin Trade Name Freq PRN Reason Stop Dose Admin Sodium Chloride 1,000 mls @ 999 mls/hr 10/13/20 00:22 10/13/20 00:38 Normal Saline IV 10/13/20 01:22 999 mls/hr .Bolus ONE Administration Piperacillin Sod/Tazobactam 50 mls @ 100 mls/hr 10/13/20 03:17 10/13/20 03:21 Sod 3.375 gm/ Sodium Chloride IV 10/13/20 03:46 100 mls/hr ONETIME ONE Administration Sodium Chloride Confirm 10/13/20 03:29 Normal Saline Administered 10/13/20 03:30 Dose 50 mls @ as directed .ROUTE .STK-MED ONE Ondansetron HCl 4 mg 10/13/20 00:22 10/13/20 00:38 Ondansetron 4 Mg/2 Ml Sdv IVPUSH 10/13/20 00:23 4 mg ONETIME ONE Administration Departure - Departure Time of Disposition: 03:23 Disposition: Refer to Observation Condition: Good Clinical Impression: Hypotension Qualifiers: Hypotension type: unspecified hypotension type Qualified Code(s): I95.9 - Hypotension, unspecified Diabetic foot ulcer Qualifiers: Diabetic foot ulcer location: heel Diabetes mellitus type: type 1 Laterality: left Non-pressure ulcer stage: limited to breakdown of skin Qualified Code(s): E10.621 - Type 1 diabetes mellitus with foot ulcer - Discharge Information Sepsis Event Note (ED) - Evaluation Sepsis Screening Result: No Definite Risk - Focused Exam Vital Signs: Vital Signs Temp Pulse Resp BP Pulse Ox 10/12/20 23:12 96.7 F L 63 24 H 120/17 L 96 - My Orders Last 24 Hours: My Active Orders 10/13/20 00:22 EKG Documentation Completion [RC] AM Sodium Chloride 0.9% [Saline Flush] 10 ml FLUSH ASDIRECTED PRN Sodium Chloride 0.9% [Saline Flush] 2.5 ml FLUSH ASDIRECTED PRN Saline Lock Insert [OM.PC] Stat 10/13/20 02:58 Blood Culture x2 Reflex Set [OM.PC] Stat 10/13/20 03:00 Patient Status [ADT] Routine 10/13/20 03:10 CULTURE BLOOD [BC] Stat 10/13/20 03:20 CULTURE BLOOD [BC] Stat - Assessment/Plan Last 24 Hours: My Active Orders 10/13/20 00:22 EKG Documentation Completion [RC] AM Sodium Chloride 0.9% [Saline Flush] 10 ml FLUSH ASDIRECTED PRN Sodium Chloride 0.9% [Saline Flush] 2.5 ml FLUSH ASDIRECTED PRN Saline Lock Insert [OM.PC] Stat 10/13/20 02:58 Blood Culture x2 Reflex Set [OM.PC] Stat 10/13/20 03:00 Patient Status [ADT] Routine 10/13/20 03:10 CULTURE BLOOD [BC] Stat 10/13/20 03:20 CULTURE BLOOD [BC] Stat
[2020-10-13] MEDS ORDERED: Ondansetron 4 MG Tab PO PRN (03:24)
[2020-10-13] MEDS ORDERED: Non-Formulary Medication 1 Each (Albuterol 18 GM Inhaler) INH PRN (03:24)
[2020-10-13] MEDS ORDERED: 50% Dextrose in Water 50 ML Syringe IV PRN ×2 (03:24→03:28)
[2020-10-13] MEDS ORDERED: Glucagon,Human Recombinant 1 MG Vial IM PRN ×2 (03:24→03:28)
[2020-10-13] MEDS ORDERED: Sodium Chloride 0.9% 50 ML ONE (03:29)
--- NOTE | 2020-10-13 03:46 | PCM.HP.2 ---
H&P History of Present Illness - General Date of Service: 10/13/20 Admit Problem/Dx: Admission Diagnosis/Problem Admission Diagnosis/Problem Dehydration - History of Present Illness Initial Comments - Free Text/Narative: 65 yo female with pmh of CAD, COPD, HTN, diabetic foot ulcer, liver cirrhosis, and c.diff who presents to the ED with complaint of generalized weakness. Pateint reports unable to walk much do to weakness. She reports she has not been eating muche. She reports having a colonoscopy one month ago in [place] but is unable to recall if there was any significant findings. She has been followed by Dr. Villegas. She has been on doxycycline recently for foot ulcer on the heels and toes. She reports that Dr. Villegas did have plans on amputating a toe but they have not had time to schedule a date for surgery. PAtient also has had chronic right lobe infliltrate/atelectasis and has been treated for pneumonia multiple times. - Related Data Allergies/Adverse Reactions: Allergies Allergy/AdvReac Type Severity Reaction Status Date / Time No Known Allergies Allergy Verified 06/12/20 02:53 Home Medications: Home Meds Acetaminophen with Codeine [Acetaminophen-Cod #4] 2 tab PO Q4HR PRN 01/18/15 [History] Propranolol HCl 10 mg PO TID 01/18/15 [History] Sodium Bicarbonate 650 mg PO BIDMEALS 01/18/15 [History] amLODIPine [Norvasc] 5 mg PO DAILY 01/18/15 [History] Clopidogrel Bisulfate [Clopidogrel] 75 mg PO DAILY 01/21/18 [History] Pantoprazole [ProTONIX] 40 mg PO DAILY 01/21/18 [History] carisoprodoL [Carisoprodol] 350 mg PO TID PRN 01/21/18 [History] ondansetron HCL [Zofran] 4 mg PO TID PRN 01/21/18 [History] Albuterol [Ventolin HFA] 2 puff INH Q4H PRN 12/12/18 [History] Carboxymethylcellulose Sodium [Refresh Tears] 1 drop EYEBOTH ASDIRECTED PRN 12/12/18 [History] Ezetimibe 10 mg PO DAILY 12/12/18 [History] Insulin Glargine,Hum.Rec.Anlog [Basaglar Kwikpen U-100] 4 units SUBCUT BEDTIME 12/12/18 [History] Isosorbide Mononitrate [Imdur] 30 mg PO DAILY 12/12/18 [History] Nitroglycerin 0.4 mg SL .EVERY 5 MINUTES PRN MDD 3 TABLETS 12/12/18 [History] Aspirin 81 mg PO DAILY 12/14/18 [History] Glucagon [Baqsimi] 1 spray UMM ASDIRECTED PRN 01/15/20 [History] Insulin Aspart (Niacinamide) [Fiasp 100 Unit/ml Flextouch] 4 - 5 unit SUBCUT TIDMEALS MDD 25 units 01/15/20 [History] Losartan Potassium 25 mg PO DAILY 01/15/20 [History] Alendronate Sodium 35 mg PO WEEKLY 03/12/20 [History] Non-Formulary Medication [NF Drug] 1 inh IH .ANORO ELLIPTA DAILY 03/12/20 [History] Fludrocortisone [Florinef] 0.1 mg PO DAILY 06/12/20 [History] glucagon HCL [Glucagon Emergency Kit] 1 mg SUBCUT . NEEDED PRN 06/12/20 [His tory] Doxycycline [Vibramycin] 100 mg PO BID #10 cap 06/19/20 [Rx] Folic Acid 1 mg PO BEDTIME tablet 06/19/20 [Rx] Furosemide [Lasix] 40 mg PO BID #60 tablet 06/19/20 [Rx] Spironolactone 50 mg PO DAILY #30 tablet 06/19/20 [Rx] Thiamine [Vitamin B-1] 100 mg PO BEDTIME tablet 06/19/20 [Rx] metOLazone [Zaroxolyn] 5 mg PO Q48H #30 tablet 06/19/20 [Rx] Past Medical History HEENT History: Reports: Other (See Below) Other HEENT History: wears reading glasses, upper denture Cardiovascular History: Reports: Hypertension, MT, Stents Other Cardiovascular History: Myocardial infarction 2013 Respiratory History: Reports: COPD Gastrointestinal History: Reports: Chronic Diarrhea, GERD, PUD Other Gastrointestinal History: Gastroparesis, hx gastric ulcers Genitourinary History: Reports: None 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: 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 History: Reports: Back Pain, Chronic, Fracture, Osteoarthritis Other 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 History: hx fx left arm Neurological History: Reports: Neuropathy, Diabetic Other Neuro History: essential tremors Psychiatric History: Reports: None Endocrine/Metabolic History: Reports: Diabetes, Type II, Osteopenia Hematologic History: Reports: None Immunologic History: Reports: None Oncologic (Cancer) History: Reports: None Dermatologic History: Reports: Other (See Below) Other Dermatologic History: necrobiosis lipoidica - Infectious Disease History Infectious Disease History: Reports: None - Past Surgical History Head Surgeries/Procedures: Reports: None HEENT Surgical History: Reports: Cataract Surgery Cardiovascular Surgical History: Reports: Coronary Artery Stent, Other (See Below) Other Cardiovascular Surgeries/Procedures: stents x 2 Respiratory Surgical History: Reports: None GI Surgical History: Reports: Appendectomy, Cholecystectomy, Colonoscopy, EGD, Other (See Below) Other GI Surgeries/Procedures: partial gastrectomy, ERCP with insertion of TUbe into bile/pancreatic dust Female Surgical History: Reports: Section, Hysterectomy, Tubal Ligation Endocrine Surgical History: Reports: None Neurological Surgical History: Reports: None 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 Surgical History: Reports: Carpal Tunnel, Other (See Below) Other 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 Surgeries/Procedures:: surgical tx for fx left humerous surgery Oncologic Surgical History: Reports: None Dermatological Surgical History: Reports: Skin Graft Social & Family History - Family History Family Medical History: No Pertinent Family History - Tobacco Use Tobacco Use Status *Q: Former Tobacco User Used Tobacco, but Quit: Yes Month/Year Tobacco Last Used: 3 yrs - Caffeine Use Caffeine Use: Reports: Coffee Caffeine Use Comment: 1 cup of coffee every morning. - Recreational Drug Use Recreational Drug Use: No - Living Situation & Occupation Living situation: Reports: Occupation: Employed ([employer] couple nights a week) H&P Review of Systems - Review of Systems: Review Of Systems: Comprehensive ROS is negative, except as noted in HPI. Exam - Exam Exam: See Below - Vital Signs Vital Signs: Last Vital Signs Temp 35.9 C L 10/12/20 23:12 Pulse 63 10/12/20 23:12 Resp 24 H 10/12/20 23:12 BP 120/17 L 10/12/20 23:12 Pulse Ox 96 10/12/20 23:12 Weight: 36.287 kg - Exam General: Alert, Oriented HEENT: Mucosa Moist & [place] Lungs: Clear to Auscultation, Normal Respiratory Effort Cardiovascular: Regular Rate, Regular Rhythm GI/Abdominal Exam: Soft, Non-Tender, No Distention Extremities: Other (ulcer on heal bilaterally. right 1st toe has small ulcer at tip. left 2nd toe has circumfrential ulcer, no areas of drainage or fluctuance noted, no edema or erythema) - Patient Data Lab Results Last 24 hrs: Laboratory Results - last 24 hr 10/12/20 10/12/20 10/12/20 Range/Units 23:33 23:36 23:36 WBC 14.23 H (4.0-11.0) K/uL RBC 3.88 L (4.30-5.90) M/uL Hgb 11.8 L (12.0-16.0) g/dL Hct 34.8 L (36.0-46.0) % MCV 89.7 (80.0-98.0) fL MCH 30.4 (27.0-32.0) pg MCHC 33.9 (31.0-37.0) g/dL RDW Std Deviation 45.5 (28.0-62.0) fl RDW Coeff of [place]esham 14 (11.0-15.0) % Plt Count 396 (150-400) K/uL MPV 9.90 (7.40-12.00) fL Add Manual Diff YES Neutrophils % (Manual) 75 (48.0-80.0) % Band Neutrophils % 1 % Lymphocytes % (Manual) 13 L (16.0-40.0) % Monocytes % (Manual) 9 (0.0-15.0) % Basophils % (Manual) 1 (0.0-1.5) % Metamyelocytes % 1 % Absolute Seg Neuts 10.7 H (1.4-5.7) Band Neutrophils # 0.1 Lymphocytes # (Manual) 1.8 (0.6-2.4) Monocytes # (Manual) 1.3 H (0.0-0.8) Basophils # (Manual) 0.1 (0.0-0.1) Absolute Metamyelocyte 0.1 INR 0.99 APTT 21.6 (18.6-31.3) SEC Lactate (0.20-2.00) mmol/L Sodium (136-145) mmol/L Potassium (3.5-5.1) mmol/L Chloride (98-107) mmol/L Carbon Dioxide (21.0-32.0) mmol/L BUN (7.0-18.0) mg/dL Creatinine (0.6-1.0) mg/dL Est Cr Clr Drug Dosing mL/min Estimated GFR (MDRD) ml/min Glucose (74-106) mg/dL POC Glucose 298 H (70-99) mg/dL Calcium (8.5-10.1) mg/dL Magnesium (1.8-2.4) mg/dL Total Bilirubin (0.2-1.0) mg/dL AST (15-37) IU/L ALT (14-63) IU/L Alkaline Phosphatase (46-116) U/L Total Protein (6.4-8.2) g/dL Albumin (3.4-5.0) g/dL Globulin (2.6-4.0) g/dL Albumin/Globulin Ratio (0.9-1.6) Lipase (73-393) U/L TSH 3rd Generation (0.36-3.74) uIU/mL SARS-CoV-2 RNA ([place]) (NEGATIVE) 10/12/20 10/13/20 10/13/20 Range/Units 23:36 01:05 03:20 WBC (4.0-11.0) K/uL RBC (4.30-5.90) M/uL Hgb (12.0-16.0) g/dL Hct (36.0-46.0) % MCV (80.0-98.0) fL MCH (27.0-32.0) pg MCHC (31.0-37.0) g/dL RDW Std Deviation (28.0-62.0) fl RDW Coeff of Hesham (11.0-15.0) % Plt Count (150-400) K/uL MPV (7.40-12.00) fL Add Manual Diff Neutrophils % (Manual) (48.0-80.0) % Band Neutrophils % % Lymphocytes % (Manual) (16.0-40.0) % Monocytes % (Manual) (0.0-15.0) % Basophils % (Manual) (0.0-1.5) % Metamyelocytes % % Absolute Seg Neuts (1.4-5.7) Band Neutrophils # Lymphocytes # (Manual) (0.6-2.4) Monocytes # (Manual) (0.0-0.8) Basophils # (Manual) (0.0-0.1) Absolute Metamyelocyte INR APTT (18.6-31.3) SEC Lactate 2.0 (0.20-2.00) mmol/L Sodium 131 L (136-145) mmol/L Potassium 3.6 (3.5-5.1) mmol/L Chloride 93 L (98-107) mmol/L Carbon Dioxide 35.3 H (21.0-32.0) mmol/L BUN 49 H (7.0-18.0) mg/dL Creatinine 1.5 H (0.6-1.0) mg/dL Est Cr Clr Drug Dosing 21.70 mL/min Estimated GFR (MDRD) 35.0 ml/min Glucose 342 H (74-106) mg/dL POC Glucose (70-99) mg/dL Calcium 8.1 L (8.5-10.1) mg/dL Magnesium 2.1 (1.8-2.4) mg/dL Total Bilirubin 0.5 (0.2-1.0) mg/dL AST 33 (15-37) IU/L ALT 31 (14-63) IU/L Alkaline Phosphatase 148 H (46-116) U/L Total Protein 7.1 (6.4-8.2) g/dL Albumin 2.0 L (3.4-5.0) g/dL Globulin 5.1 H (2.6-4.0) g/dL Albumin/Globulin Ratio 0.4 L (0.9-1.6) Lipase 36 L (73-393) U/L TSH 3rd Generation 1.99 (0.36-3.74) uIU/mL SARS-CoV-2 RNA ([place]) NEGATIVE (NEGATIVE) Result Diagrams: 10/12/20 23:36 10/12/20 23:36 Diony Results Last 24 hrs: Microbiology 10/13/20 03:10 Anaerobic Blood Culture - Final Blood - Venous Sepsis Event Note - Evaluation Sepsis Screening Result: No Definite Risk - Focused Exam Vital Signs: Vital Signs Temp Pulse Resp BP Pulse Ox 10/12/20 23:12 35.9 C L 63 24 H 120/17 L 96 Problem List Initiated/Reviewed/Updated: Yes Orders Last 24hrs: Active Orders 24 hr Category Date Time Status Patient Status [ADT] Routine ADT 10/13/20 03:00 Active Antiembolic Devices [RC] PER UNIT ROUTINE Care 10/13/20 03:38 Ordered Blood Glucose Check, Bedside [RC] TIDAC Care 10/13/20 03:28 Active EKG Documentation Completion [RC] AM Care 10/13/20 00:22 Active Oxygen Therapy [RC] PRN Care 10/13/20 03:36 Ordered Up ad [place] [RC] ASDIRECTED Care 10/13/20 03:36 Ordered VTE/DVT Education [RC] PER UNIT ROUTINE Care 10/13/20 03:36 Ordered Vital Signs [RC] Q4H Care 10/13/20 03:36 Ordered [place] [employer] Diet [DIET] Diet 10/13/20 Breakfast Ordered CXR [Chest 1V Frontal] [CR] Stat Exams 10/13/20 03:24 Ordered C-REACTIVE PROTEIN [CHEM] Routine Lab 10/13/20 03:39 Ordered CBC W/O DIFF,HEMOGRAM [HEME] Routine Lab 10/13/20 16:00 Ordered COMPREHENSIVE METABOLIC PN,CMP [CHEM] Routine Lab 10/13/20 16:00 Ordered CULTURE BLOOD [BC] Stat Lab 10/13/20 03:10 Results CULTURE BLOOD [BC] Stat Lab 10/13/20 03:20 Received ESR [SEDIMENTATION RATE AUTO] [HEME] Routine Lab 10/13/20 03:39 Ordered UA W/DIONY RFLX IF INDICATED [URIN] Stat Lab 10/13/20 00:22 Ordered VANCOMYCIN TROUGH [CHEM] Timed Lab 10/16/20 03:00 Ordered Acetaminophen with Codeine [Acetaminophen-Cod #4] Med 10/13/20 03:24 Active 2 tab PO Q4HR PRN Albuterol Med 10/13/20 03:24 Active 2 puff INH Q4H PRN Clopidogrel [Plavix] Med 10/13/20 09:00 Active 75 mg PO DAILY Dextrose 50% in Water Med 10/13/20 03:24 Active 50 ml IV ASDIRECTED PRN Dextrose 50% in Water Med 10/13/20 03:28 Active 50 ml IV ASDIRECTED PRN Ezetimibe [Zetia] Med 10/13/20 09:00 Active 10 mg PO DAILY Fludrocortisone [Florinef] Med 10/13/20 09:00 Active 0.1 mg PO DAILY Glucagon,Human Recombinant [GlucaGen] Med 10/13/20 03:24 Active 1 mg IM ASDIRECTED PRN Glucagon,Human Recombinant [GlucaGen] Med 10/13/20 03:28 Active 1 mg IM ASDIRECTED PRN Insulin Aspart [NovoLOG] Med 10/13/20 07:30 Active See Protocol SUBCUT TIDAC Insulin Glarg,Human.Rec.Analog [LantUS Solostar] Med 10/13/20 21:00 Active 4 units SUBCUT BEDTIME Ondansetron [Zofran] Med 10/13/20 03:24 Active 4 mg PO TID PRN Pantoprazole [ProTONIX] Med 10/13/20 09:00 Active 40 mg PO DAILY Pharmacy to Dose - Vancomycin Med 10/13/20 03:30 Pending 1 dose .XX ASDIRECTED Piperacillin/Tazobactam [Piperacil-Tazobact] 3.375 gm Med 10/13/20 03:17 Active Sodium Chloride 0.9% [Normal Saline] 50 ml IV ONETIME Piperacillin/Tazobactam [Piperacil-Tazobact] 3.375 gm Med 10/13/20 09:30 Active Sodium Chloride 0.9% [Normal Saline] 50 ml IV Q6H Sodium Chloride 0.9% [Normal Saline] 1,000 ml Med 10/13/20 03:15 Active IV ASDIRECTED Sodium Chloride 0.9% [Normal Saline] 1,000 ml Med 10/13/20 03:30 Active IV ASDIRECTED Sodium Chloride 0.9% [Saline Flush] Med 10/13/20 00:22 Active 10 ml FLUSH ASDIRECTED PRN Sodium Chloride 0.9% [Saline Flush] Med 10/13/20 00:22 Active 2.5 ml FLUSH ASDIRECTED PRN Thiamine [Vitamin B-1] Med 10/13/20 21:00 Active 100 mg PO BEDTIME Vancomycin 500 mg Med 10/13/20 04:00 Active Sodium Chloride 0.9% [Normal Saline] 100 ml IV Q24H carisoprodoL [Soma] Med 10/13/20 03:24 Active 350 mg PO TID PRN Blood Culture x2 Reflex Set [OM.PC] Stat Ot 10/13/20 02:58 Ordered Saline Lock Insert [OM.PC] Stat Oth 10/13/20 00:22 Ordered Sequential Compression Device [OM.PC] Per Unit Routine Oth 10/13/20 03:37 Ordered Resuscitation Status Routine Resus Stat 10/13/20 03:36 Ordered Medication Orders Carisoprodol (Carisoprodol 350 Mg Tab) 350 mg PO TID PRN PRN Reason: Muscle Spasm Clopidogrel Bisulfate (Clopidogrel 75 Mg Tab) 75 mg PO DAILY [facility] Dextrose/Water (50% Dextrose In Water 50 Ml Syringe) 50 ml IV ASDIRECTED PRN PRN Reason: Hypoglycemia Dextrose/Water (50% Dextrose In Water 50 Ml Syringe) 50 ml IV ASDIRECTED PRN PRN Reason: Hypoglycemia Ezetimibe (Ezetimibe 10 Mg Tab) 10 mg PO DAILY [facility] Fludrocortisone Acetate (Fludrocortisone 0.1 Mg Tab) 0.1 mg PO DAILY [facility] Glucagon (Glucagon,Human Recombinant 1 Mg Vial) 1 mg IM ASDIRECTED PRN PRN Reason: Hypoglycemia Glucagon (Glucagon,Human Recombinant 1 Mg Vial) 1 mg IM ASDIRECTED PRN PRN Reason: Hypoglycemia Sodium Chloride (Normal Saline) 1,000 mls @ 999 mls/hr IV ASDIRECTED [facility] Last Admin: 10/13/20 03:17 Dose: 999 mls/hr Documented by: [id number] Piperacillin Sod/Tazobactam (Sod 3.375 gm/ Sodium Chloride) 50 mls @ 100 mls/hr IV ONETIME ONE Stop: 10/13/20 03:46 Last Admin: 10/13/20 03:21 Dose: 100 mls/hr Documented by: [id number] Sodium Chloride (Normal Saline) 1,000 mls @ 125 mls/hr IV ASDIRECTED [facility] Piperacillin Sod/Tazobactam (Sod 3.375 gm/ Sodium Chloride) 50 mls @ 100 mls/hr IV Q6H [facility] Vancomycin HCl 500 mg/ Sodium (Chloride) 100 mls @ 100 mls/hr IV Q24H [facility] Insulin Aspart (Insulin Aspart 100 Units/Ml 3 Ml Pen) 0 unit SUBCUT TIDAC [place]; Protocol Insulin Glargine (Insulin Glargine,Human Rec. Analog 100 Units/Ml 3 Ml Pen) 4 units SUBCUT BEDTIME [facility] Non-Formulary Medication (Acetaminophen With Codeine [Acetaminophen-Cod #4]) 2 tab PO Q4HR PRN PRN Reason: Pain Non-Formulary Medication (Albuterol) 2 puff INH Q4H PRN PRN Reason: Shortness of Breath Ondansetron HCl (Ondansetron 4 Mg Tab) 4 mg PO TID PRN PRN Reason: Nausea Pantoprazole Sodium (Pantoprazole 40 Mg Tab.Cr) 40 mg PO DAILY [place] Sodium Chloride (Sodium Chloride 0.9% 10 Ml Syringe) 10 ml FLUSH ASDIRECTED PRN PRN Reason: Keep Vein Open Last Admin: 10/13/20 00:39 Dose: 10 ml Documented by: [id number] Sodium Chloride (Sodium Chloride 0.9% 2.5 Ml Syringe) 2.5 ml FLUSH ASDIRECTED PRN PRN Reason: Keep Vein Open Last Admin: 10/13/20 00:39 Dose: 2.5 ml Documented by: [id number] Thiamine HCl (Thiamine 100 Mg Tab) 100 mg PO BEDTIME [place] Vancomycin HCl (Pharmacy To Dose - Vancomycin) 1 dose .XX ASDIRECTED [facility] Assessment/Plan Comment:: 65 yo female with pmh 65 yo female with pmh of CAD, COPD,and liver cirrhosis who presented with malaise, low diastolic blood pressure and leukocytosis. in the setting of chronic diabetic foot ulcers. We will treat with broad spectrum antibiotics for now. Lactic acid, cultures, CXR and UA have been ordered. Patient appears dehydrated. We will hold her lasix and spironolactone and hydrate with IV fluids.
--- NOTE | 2020-10-13 04:00 | CR ---
Indication: Leukocytosis, malaise Technique: Chest 1 view Comparison: July 11, 2020 Findings/Impression: Normal cardiomediastinal silhouette and pulmonary vasculature. There is increased patchy opacity at the medial right lung base concerning for atelectasis or infection. Persistent opacities persist at the medial right lung base. No pneumothorax. No effusion. Surgical clips in the epigastric region and right upper quadrant. Dictated by Anna Kovacs MD @ 10/13/2020 3:58:[address] Anna Kovacs @ Oct 13 2020 3:58AM
[2020-10-13] MEDS: Insulin Aspart 100 Units/ML 3 ML Pen SUBCUT SCH ×3 (07:41→17:13)
[2020-10-13] MEDS: Piperacillin/Tazobactam 2.25 GM in Sodium Chloride 0.9% 50 ML IV SCH ×3 (09:13→21:47)
[2020-10-13] MEDS: Clopidogrel 75 MG Tab PO SCH (09:15)
[2020-10-13] MEDS: Ezetimibe 10 MG Tab PO SCH (09:15)
[2020-10-13] MEDS: Fludrocortisone 0.1 MG Tab PO SCH (09:16)
[2020-10-13] MEDS: Pantoprazole 40 MG Tab.CR PO SCH (09:16)
[2020-10-13] MEDS: [UNRECOGNIZED DRUG - OTHER] INH SCH (11:00)
[2020-10-13] MEDS: UMECLIDINIUM INH SCH (11:00)
[2020-10-13] MEDS: ACETAMINOPHEN WITH CODEINE PO PRN ×4 (11:00→23:54)
--- NOTE | 2020-10-13 12:38 | PCM.PN ---
- General Info Date of Service: 10/13/20 - Review of Systems Systems Review Comment:: reports pain in the right heal, no fevers, no cough. has not had any tylenol 4 last night as pharmacy does not carry this medication. She did have someone bring in her home meds. - Patient Data Vitals - Most Recent: Last Vital Signs Temp 36.4 C 10/13/20 11:22 Pulse 64 10/13/20 11:22 Resp 18 10/13/20 11:22 BP 104/46 L 10/13/20 11:22 Pulse Ox 95 10/13/20 11:22 Weight - Most Recent: 36.287 kg I&O - Last 24 Hours: Intake & Output 10/12/20 10/13/20 10/13/20 22:59 06:59 14:59 Intake Total 990 Balance 990 Lab Results Last 24 Hours: Laboratory Results - last 24 hr 10/12/20 10/12/20 10/12/20 Range/Units 00:00 23:33 23:34 WBC (4.0-11.0) K/uL RBC (4.30-5.90) M/uL Hgb (12.0-16.0) g/dL Hct (36.0-46.0) % MCV (80.0-98.0) fL MCH (27.0-32.0) pg MCHC (31.0-37.0) g/dL RDW Std Deviation (28.0-62.0) fl RDW Coeff of Hesham (11.0-15.0) % Plt Count (150-400) K/uL MPV (7.40-12.00) fL Add Manual Diff Neutrophils % (Manual) (48.0-80.0) % Band Neutrophils % % Lymphocytes % (Manual) (16.0-40.0) % Monocytes % (Manual) (0.0-15.0) % Basophils % (Manual) (0.0-1.5) % Metamyelocytes % % Absolute Seg Neuts (1.4-5.7) Band Neutrophils # Lymphocytes # (Manual) (0.6-2.4) Monocytes # (Manual) (0.0-0.8) Basophils # (Manual) (0.0-0.1) Absolute Metamyelocyte ESR 34 H (0-29) mm/hr INR APTT (18.6-31.3) SEC Lactate (0.20-2.00) mmol/L Sodium (136-145) mmol/L Potassium (3.5-5.1) mmol/L Chloride (98-107) mmol/L Carbon Dioxide (21.0-32.0) mmol/L BUN (7.0-18.0) mg/dL Creatinine (0.6-1.0) mg/dL Est Cr Clr Drug Dosing mL/min Estimated GFR (MDRD) ml/min Glucose (74-106) mg/dL POC Glucose 298 H (70-99) mg/dL Calcium (8.5-10.1) mg/dL Magnesium (1.8-2.4) mg/dL Total Bilirubin (0.2-1.0) mg/dL AST (15-37) IU/L ALT (14-63) IU/L Alkaline Phosphatase (46-116) U/L C-Reactive Protein 1.30 H (0.00-0.90) mg/dL Total Protein (6.4-8.2) g/dL Albumin (3.4-5.0) g/dL Globulin (2.6-4.0) g/dL Albumin/Globulin Ratio (0.9-1.6) Lipase (73-393) U/L TSH 3rd Generation (0.36-3.74) uIU/mL Urine Color Urine Appearance Urine pH (5.0-8.0) Ur Specific [place] (1.001-1.035) Urine Protein (NEGATIVE) mg/dL Urine Glucose (UA) (NEGATIVE) mg/dL Urine Ketones (NEGATIVE) mg/dL Urine Occult Blood (NEGATIVE) Urine Nitrite (NEGATIVE) Urine Bilirubin (NEGATIVE) Urine Urobilinogen (<2.0) EU/dL Ur Leukocyte Esterase (NEGATIVE) Urine RBC (0-2/HPF) Urine WBC (0-5/HPF) Ur Epithelial Cells (NONE-FEW) Urine Bacteria (NEGATIVE) Urine Yeast SARS-CoV-2 RNA ([place]) (NEGATIVE) 10/12/20 10/12/20 10/12/20 Range/Units 23:36 23:36 23:36 WBC 14.23 H (4.0-11.0) K/uL RBC 3.88 L (4.30-5.90) M/uL Hgb 11.8 L (12.0-16.0) g/dL Hct 34.8 L (36.0-46.0) % MCV 89.7 (80.0-98.0) fL MCH 30.4 (27.0-32.0) pg MCHC 33.9 (31.0-37.0) g/dL RDW Std Deviation 45.5 (28.0-62.0) fl RDW Coeff of Hesham 14 (11.0-15.0) % Plt Count 396 (150-400) K/uL MPV 9.90 (7.40-12.00) fL Add Manual Diff YES Neutrophils % (Manual) 75 (48.0-80.0) % Band Neutrophils % 1 % Lymphocytes % (Manual) 13 L (16.0-40.0) % Monocytes % (Manual) 9 (0.0-15.0) % Basophils % (Manual) 1 (0.0-1.5) % Metamyelocytes % 1 % Absolute Seg Neuts 10.7 H (1.4-5.7) Band Neutrophils # 0.1 Lymphocytes # (Manual) 1.8 (0.6-2.4) Monocytes # (Manual) 1.3 H (0.0-0.8) Basophils # (Manual) 0.1 (0.0-0.1) Absolute Metamyelocyte 0.1 ESR (0-29) mm/hr INR 0.99 APTT 21.6 (18.6-31.3) SEC Lactate (0.20-2.00) mmol/L Sodium 131 L (136-145) mmol/L Potassium 3.6 (3.5-5.1) mmol/L Chloride 93 L (98-107) mmol/L Carbon Dioxide 35.3 H (21.0-32.0) mmol/L BUN 49 H (7.0-18.0) mg/dL Creatinine 1.5 H (0.6-1.0) mg/dL Est Cr Clr Drug Dosing 21.70 mL/min Estimated GFR (MDRD) 35.0 ml/min Glucose 342 H (74-106) mg/dL POC Glucose (70-99) mg/dL Calcium 8.1 L (8.5-10.1) mg/dL Magnesium 2.1 (1.8-2.4) mg/dL Total Bilirubin 0.5 (0.2-1.0) mg/dL AST 33 (15-37) IU/L ALT 31 (14-63) IU/L Alkaline Phosphatase 148 H (46-116) U/L C-Reactive Protein (0.00-0.90) mg/dL Total Protein 7.1 (6.4-8.2) g/dL Albumin 2.0 L (3.4-5.0) g/dL Globulin 5.1 H (2.6-4.0) g/dL Albumin/Globulin Ratio 0.4 L (0.9-1.6) Lipase 36 L (73-393) U/L TSH 3rd Generation 1.99 (0.36-3.74) uIU/mL Urine Color Urine Appearance Urine pH (5.0-8.0) Ur Specific [place] (1.001-1.035) Urine Protein (NEGATIVE) mg/dL Urine Glucose (UA) (NEGATIVE) mg/dL Urine Ketones (NEGATIVE) mg/dL Urine Occult Blood (NEGATIVE) Urine Nitrite (NEGATIVE) Urine Bilirubin (NEGATIVE) Urine Urobilinogen (<2.0) EU/dL Ur Leukocyte Esterase (NEGATIVE) Urine RBC (0-2/HPF) Urine WBC (0-5/HPF) Ur Epithelial Cells (NONE-FEW) Urine Bacteria (NEGATIVE) Urine Yeast SARS-CoV-2 RNA ([place]) (NEGATIVE) 10/13/20 10/13/20 10/13/20 Range/Units 01:05 03:20 03:35 WBC (4.0-11.0) K/uL RBC (4.30-5.90) M/uL Hgb (12.0-16.0) g/dL Hct (36.0-46.0) % MCV (80.0-98.0) fL MCH (27.0-32.0) pg MCHC (31.0-37.0) g/dL RDW Std Deviation (28.0-62.0) fl RDW Coeff of [place]esham (11.0-15.0) % Plt Count (150-400) K/uL MPV (7.40-12.00) fL Add Manual Diff Neutrophils % (Manual) (48.0-80.0) % Band Neutrophils % % Lymphocytes % (Manual) (16.0-40.0) % Monocytes % (Manual) (0.0-15.0) % Basophils % (Manual) (0.0-1.5) % Metamyelocytes % % Absolute Seg Neuts (1.4-5.7) Band Neutrophils # Lymphocytes # (Manual) (0.6-2.4) Monocytes # (Manual) (0.0-0.8) Basophils # (Manual) (0.0-0.1) Absolute Metamyelocyte ESR (0-29) mm/hr INR APTT (18.6-31.3) SEC Lactate 2.0 (0.20-2.00) mmol/L Sodium (136-145) mmol/L Potassium (3.5-5.1) mmol/L Chloride (98-107) mmol/L Carbon Dioxide (21.0-32.0) mmol/L BUN (7.0-18.0) mg/dL Creatinine (0.6-1.0) mg/dL Est Cr Clr Drug Dosing mL/min Estimated GFR (MDRD) ml/min Glucose (74-106) mg/dL POC Glucose (70-99) mg/dL Calcium (8.5-10.1) mg/dL Magnesium (1.8-2.4) mg/dL Total Bilirubin (0.2-1.0) mg/dL AST (15-37) IU/L ALT (14-63) IU/L Alkaline Phosphatase (46-116) U/L C-Reactive Protein (0.00-0.90) mg/dL Total Protein (6.4-8.2) g/dL Albumin (3.4-5.0) g/dL Globulin (2.6-4.0) g/dL Albumin/Globulin Ratio (0.9-1.6) Lipase (73-393) U/L TSH 3rd Generation (0.36-3.74) uIU/mL Urine Color YELLOW Urine Appearance CLEAR Urine pH 7.0 (5.0-8.0) Ur Specific [place] 1.015 (1.001-1.035) Urine Protein NEGATIVE (NEGATIVE) mg/dL Urine Glucose (UA) NEGATIVE (NEGATIVE) mg/dL Urine Ketones NEGATIVE (NEGATIVE) mg/dL Urine Occult Blood NEGATIVE (NEGATIVE) Urine Nitrite NEGATIVE (NEGATIVE) Urine Bilirubin NEGATIVE (NEGATIVE) Urine Urobilinogen 0.2 (<2.0) EU/dL Ur Leukocyte Esterase TRACE H (NEGATIVE) Urine RBC 0-1 (0-2/HPF) Urine WBC 1-4 (0-5/HPF) Ur Epithelial Cells RARE (NONE-FEW) Urine Bacteria FEW (NEGATIVE) Urine Yeast FEW SARS-CoV-2 RNA ([place]) NEGATIVE (NEGATIVE) 10/13/20 10/13/20 Range/Units 06:10 11:16 WBC (4.0-11.0) K/uL RBC (4.30-5.90) M/uL Hgb (12.0-16.0) g/dL Hct (36.0-46.0) % MCV (80.0-98.0) fL MCH (27.0-32.0) pg MCHC (31.0-37.0) g/dL RDW Std Deviation (28.0-62.0) fl RDW Coeff of [place]esham (11.0-15.0) % Plt Count (150-400) K/uL MPV (7.40-12.00) fL Add Manual Diff Neutrophils % (Manual) (48.0-80.0) % Band Neutrophils % % Lymphocytes % (Manual) (16.0-40.0) % Monocytes % (Manual) (0.0-15.0) % Basophils % (Manual) (0.0-1.5) % Metamyelocytes % % Absolute Seg Neuts (1.4-5.7) Band Neutrophils # Lymphocytes # (Manual) (0.6-2.4) Monocytes # (Manual) (0.0-0.8) Basophils # (Manual) (0.0-0.1) Absolute Metamyelocyte ESR (0-29) mm/hr INR APTT (18.6-31.3) SEC Lactate (0.20-2.00) mmol/L Sodium (136-145) mmol/L Potassium (3.5-5.1) mmol/L Chloride (98-107) mmol/L Carbon Dioxide (21.0-32.0) mmol/L BUN (7.0-18.0) mg/dL Creatinine (0.6-1.0) mg/dL Est Cr Clr Drug Dosing mL/min Estimated GFR (MDRD) ml/min Glucose (74-106) mg/dL POC Glucose 99 79 (70-99) mg/dL Calcium (8.5-10.1) mg/dL Magnesium (1.8-2.4) mg/dL Total Bilirubin (0.2-1.0) mg/dL AST (15-37) IU/L ALT (14-63) IU/L Alkaline Phosphatase (46-116) U/L C-Reactive Protein (0.00-0.90) mg/dL Total Protein (6.4-8.2) g/dL Albumin (3.4-5.0) g/dL Globulin (2.6-4.0) g/dL Albumin/Globulin Ratio (0.9-1.6) Lipase (73-393) U/L TSH 3rd Generation (0.36-3.74) uIU/mL Urine Color Urine Appearance Urine pH (5.0-8.0) Ur Specific [place] (1.001-1.035) Urine Protein (NEGATIVE) mg/dL Urine Glucose (UA) (NEGATIVE) mg/dL Urine Ketones (NEGATIVE) mg/dL Urine Occult Blood (NEGATIVE) Urine Nitrite (NEGATIVE) Urine Bilirubin (NEGATIVE) Urine Urobilinogen (<2.0) EU/dL Ur Leukocyte Esterase (NEGATIVE) Urine RBC (0-2/HPF) Urine WBC (0-5/HPF) Ur Epithelial Cells (NONE-FEW) Urine Bacteria (NEGATIVE) Urine Yeast SARS-CoV-2 RNA ([place]) (NEGATIVE) Diony Results Last 24 Hours: Microbiology 10/13/20 03:10 Anaerobic Blood Culture - Final Blood - Venous Med Orders - Current: Current Medications Carisoprodol (Carisoprodol 350 Mg Tab) 350 mg PO TID PRN PRN Reason: Muscle Spasm Clopidogrel Bisulfate (Clopidogrel 75 Mg Tab) 75 mg PO DAILY [facility] Last Admin: 10/13/20 09:15 Dose: 75 mg Documented by: Dextrose/Water (50% Dextrose In Water 50 Ml Syringe) 50 ml IV ASDIRECTED PRN PRN Reason: Hypoglycemia Dextrose/Water (50% Dextrose In Water 50 Ml Syringe) 50 ml IV ASDIRECTED PRN PRN Reason: Hypoglycemia Ezetimibe (Ezetimibe 10 Mg Tab) 10 mg PO DAILY [facility] Last Admin: 10/13/20 09:15 Dose: 10 mg Documented by: Fludrocortisone Acetate (Fludrocortisone 0.1 Mg Tab) 0.1 mg PO DAILY [facility] Last Admin: 10/13/20 09:16 Dose: 0.1 mg Documented by: Glucagon (Glucagon,Human Recombinant 1 Mg Vial) 1 mg IM ASDIRECTED PRN PRN Reason: Hypoglycemia Glucagon (Glucagon,Human Recombinant 1 Mg Vial) 1 mg IM ASDIRECTED PRN PRN Reason: Hypoglycemia Sodium Chloride (Normal Saline) 1,000 mls @ 999 mls/hr IV ASDIRECTED [facility] Last Admin: 10/13/20 03:17 Dose: 999 mls/hr Documented by: Sodium Chloride (Normal Saline) 1,000 mls @ 125 mls/hr IV ASDIRECTED [facility] Piperacillin Sod/Tazobactam (Sod 2.25 gm/ Sodium Chloride) 50 mls @ 100 mls/hr IV Q6H [facility] Last Admin: 10/13/20 09:13 Dose: 100 mls/hr Documented by: Vancomycin HCl 500 mg/ Sodium (Chloride) 100 mls @ 100 mls/hr IV Q24H [facility] Insulin Aspart (Insulin Aspart 100 Units/Ml 3 Ml Pen) 0 unit SUBCUT TIDAC [facility]; Protocol Last Admin: 10/13/20 11:17 Dose: Not Given Documented by: Insulin Glargine (Insulin Glargine,Human Rec. Analog 100 Units/Ml 3 Ml Pen) 4 units SUBCUT BEDTIME [facility] Non-Formulary Medication (Albuterol) 2 puff INH Q4H PRN PRN Reason: Shortness of Breath Ondansetron HCl (Ondansetron 4 Mg Tab) 4 mg PO TID PRN PRN Reason: Nausea Pantoprazole Sodium (Pantoprazole 40 Mg Tab.Cr) 40 mg PO DAILY [facility] Last Admin: 10/13/20 09:16 Dose: 40 mg Documented by: Acetaminophen With Codeine [ Acetaminophen-Cod #4 ] 2 each PO Q4H PRN PRN Reason: Pain Last Admin: 10/13/20 11:00 Dose: 2 each Documented by: Umeclidinium 62.5mcg (/Vilanterol 25mcg) 1 each INH DAILY [facility] Last Admin: 10/13/20 11:00 Dose: 1 each Documented by: Sodium Chloride (Sodium Chloride 0.9% 10 Ml Syringe) 10 ml FLUSH ASDIRECTED PRN PRN Reason: Keep Vein Open Last Admin: 10/13/20 00:39 Dose: 10 ml Documented by: Sodium Chloride (Sodium Chloride 0.9% 2.5 Ml Syringe) 2.5 ml FLUSH ASDIRECTED PRN PRN Reason: Keep Vein Open Last Admin: 10/13/20 00:39 Dose: 2.5 ml Documented by: Thiamine HCl (Thiamine 100 Mg Tab) 100 mg PO BEDTIME [facility] Vancomycin HCl (Pharmacy To Dose - Vancomycin) 1 dose .XX ASDIRECTED [facility] Discontinued Medications Sodium Chloride (Normal Saline) 1,000 mls @ 999 mls/hr IV .Bolus ONE Stop: 10/13/20 01:22 Last Admin: 10/13/20 00:38 Dose: 999 mls/hr Documented by: Piperacillin Sod/Tazobactam (Sod 3.375 gm/ Sodium Chloride) 50 mls @ 100 mls/hr IV ONETIME ONE Stop: 10/13/20 03:46 Last Admin: 10/13/20 03:21 Dose: 100 mls/hr Documented by: Sodium Chloride (Normal Saline) Confirm Administered Dose 50 mls @ as directed .ROUTE .STK-MED ONE Stop: 10/13/20 03:30 Last Admin: 10/13/20 06:57 Dose: Not Given Documented by: Vancomycin HCl 500 mg/ Sodium (Chloride) 100 mls @ 100 mls/hr IV Q24H [facility] Last Admin: 10/13/20 06:13 Dose: 100 mls/hr Documented by: Non-Formulary Medication (Acetaminophen With Codeine [Acetaminophen-Cod #4]) 2 tab PO Q4HR PRN PRN Reason: Pain Ondansetron HCl (Ondansetron 4 Mg/2 Ml Sdv) 4 mg IVPUSH ONETIME ONE Stop: 10/13/20 00:23 Last Admin: 10/13/20 00:38 Dose: 4 mg Documented by: - Exam General: Alert, Oriented Neck: Supple Lungs: Clear to Auscultation, Normal Respiratory Effort Cardiovascular: Regular Rate, Regular Rhythm GI/Abdominal Exam: Soft, Non-Tender, No Distention - Patient Data Lab Results Last 24 hrs: Laboratory Results - last 24 hr 10/12/20 10/12/20 10/12/20 Range/Units 00:00 23:33 23:34 WBC (4.0-11.0) K/uL RBC (4.30-5.90) M/uL Hgb (12.0-16.0) g/dL Hct (36.0-46.0) % MCV (80.0-98.0) fL MCH (27.0-32.0) pg MCHC (31.0-37.0) g/dL RDW Std Deviation (28.0-62.0) fl RDW Coeff of [place] (11.0-15.0) % Plt Count (150-400) K/uL MPV (7.40-12.00) fL Add Manual Diff Neutrophils % (Manual) (48.0-80.0) % Band Neutrophils % % Lymphocytes % (Manual) (16.0-40.0) % Monocytes % (Manual) (0.0-15.0) % Basophils % (Manual) (0.0-1.5) % Metamyelocytes % % Absolute Seg Neuts (1.4-5.7) Band Neutrophils # Lymphocytes # (Manual) (0.6-2.4) Monocytes # (Manual) (0.0-0.8) Basophils # (Manual) (0.0-0.1) Absolute Metamyelocyte ESR 34 H (0-29) mm/hr INR APTT (18.6-31.3) SEC Lactate (0.20-2.00) mmol/L Sodium (136-145) mmol/L Potassium (3.5-5.1) mmol/L Chloride (98-107) mmol/L Carbon Dioxide (21.0-32.0) mmol/L BUN (7.0-18.0) mg/dL Creatinine (0.6-1.0) mg/dL Est Cr Clr Drug Dosing mL/min Estimated GFR (MDRD) ml/min Glucose (74-106) mg/dL POC Glucose 298 H (70-99) mg/dL Calcium (8.5-10.1) mg/dL Magnesium (1.8-2.4) mg/dL Total Bilirubin (0.2-1.0) mg/dL AST (15-37) IU/L ALT (14-63) IU/L Alkaline Phosphatase (46-116) U/L C-Reactive Protein 1.30 H (0.00-0.90) mg/dL Total Protein (6.4-8.2) g/dL Albumin (3.4-5.0) g/dL Globulin (2.6-4.0) g/dL Albumin/Globulin Ratio (0.9-1.6) Lipase (73-393) U/L TSH 3rd Generation (0.36-3.74) uIU/mL Urine Color Urine Appearance Urine pH (5.0-8.0) Ur Specific [place] (1.001-1.035) Urine Protein (NEGATIVE) mg/dL Urine Glucose (UA) (NEGATIVE) mg/dL Urine Ketones (NEGATIVE) mg/dL Urine Occult Blood (NEGATIVE) Urine Nitrite (NEGATIVE) Urine Bilirubin (NEGATIVE) Urine Urobilinogen (<2.0) EU/dL Ur Leukocyte Esterase (NEGATIVE) Urine RBC (0-2/HPF) Urine WBC (0-5/HPF) Ur Epithelial Cells (NONE-FEW) Urine Bacteria (NEGATIVE) Urine Yeast SARS-CoV-2 RNA ([place]) (NEGATIVE) 10/12/20 10/12/20 10/12/20 Range/Units 23:36 23:36 23:36 WBC 14.23 H (4.0-11.0) K/uL RBC 3.88 L (4.30-5.90) M/uL Hgb 11.8 L (12.0-16.0) g/dL Hct 34.8 L (36.0-46.0) % MCV 89.7 (80.0-98.0) fL MCH 30.4 (27.0-32.0) pg MCHC 33.9 (31.0-37.0) g/dL RDW Std Deviation 45.5 (28.0-62.0) fl RDW Coeff of [place] 14 (11.0-15.0) % Plt Count 396 (150-400) K/uL MPV 9.90 (7.40-12.00) fL Add Manual Diff YES Neutrophils % (Manual) 75 (48.0-80.0) % Band Neutrophils % 1 % Lymphocytes % (Manual) 13 L (16.0-40.0) % Monocytes % (Manual) 9 (0.0-15.0) % Basophils % (Manual) 1 (0.0-1.5) % Metamyelocytes % 1 % Absolute Seg Neuts 10.7 H (1.4-5.7) Band Neutrophils # 0.1 Lymphocytes # (Manual) 1.8 (0.6-2.4) Monocytes # (Manual) 1.3 H (0.0-0.8) Basophils # (Manual) 0.1 (0.0-0.1) Absolute Metamyelocyte 0.1 ESR (0-29) mm/hr INR 0.99 APTT 21.6 (18.6-31.3) SEC Lactate (0.20-2.00) mmol/L Sodium 131 L (136-145) mmol/L Potassium 3.6 (3.5-5.1) mmol/L Chloride 93 L (98-107) mmol/L Carbon Dioxide 35.3 H (21.0-32.0) mmol/L BUN 49 H (7.0-18.0) mg/dL Creatinine 1.5 H (0.6-1.0) mg/dL Est Cr Clr Drug Dosing 21.70 mL/min Estimated GFR (MDRD) 35.0 ml/min Glucose 342 H (74-106) mg/dL POC Glucose (70-99) mg/dL Calcium 8.1 L (8.5-10.1) mg/dL Magnesium 2.1 (1.8-2.4) mg/dL Total Bilirubin 0.5 (0.2-1.0) mg/dL AST 33 (15-37) IU/L ALT 31 (14-63) IU/L Alkaline Phosphatase 148 H (46-116) U/L C-Reactive Protein (0.00-0.90) mg/dL Total Protein 7.1 (6.4-8.2) g/dL Albumin 2.0 L (3.4-5.0) g/dL Globulin 5.1 H (2.6-4.0) g/dL Albumin/Globulin Ratio 0.4 L (0.9-1.6) Lipase 36 L (73-393) U/L TSH 3rd Generation 1.99 (0.36-3.74) uIU/mL Urine Color Urine Appearance Urine pH (5.0-8.0) Ur Specific [place] (1.001-1.035) Urine Protein (NEGATIVE) mg/dL Urine Glucose (UA) (NEGATIVE) mg/dL Urine Ketones (NEGATIVE) mg/dL Urine Occult Blood (NEGATIVE) Urine Nitrite (NEGATIVE) Urine Bilirubin (NEGATIVE) Urine Urobilinogen (<2.0) EU/dL Ur Leukocyte Esterase (NEGATIVE) Urine RBC (0-2/HPF) Urine WBC (0-5/HPF) Ur Epithelial Cells (NONE-FEW) Urine Bacteria (NEGATIVE) Urine Yeast SARS-CoV-2 RNA ([place]) (NEGATIVE) 10/13/20 10/13/20 10/13/20 Range/Units 01:05 03:20 03:35 WBC (4.0-11.0) K/uL RBC (4.30-5.90) M/uL Hgb (12.0-16.0) g/dL Hct (36.0-46.0) % MCV (80.0-98.0) fL MCH (27.0-32.0) pg MCHC (31.0-37.0) g/dL RDW Std Deviation (28.0-62.0) fl RDW Coeff of [place]esham (11.0-15.0) % Plt Count (150-400) K/uL MPV (7.40-12.00) fL Add Manual Diff Neutrophils % (Manual) (48.0-80.0) % Band Neutrophils % % Lymphocytes % (Manual) (16.0-40.0) % Monocytes % (Manual) (0.0-15.0) % Basophils % (Manual) (0.0-1.5) % Metamyelocytes % % Absolute Seg Neuts (1.4-5.7) Band Neutrophils # Lymphocytes # (Manual) (0.6-2.4) Monocytes # (Manual) (0.0-0.8) Basophils # (Manual) (0.0-0.1) Absolute Metamyelocyte ESR (0-29) mm/hr INR APTT (18.6-31.3) SEC Lactate 2.0 (0.20-2.00) mmol/L Sodium (136-145) mmol/L Potassium (3.5-5.1) mmol/L Chloride (98-107) mmol/L Carbon Dioxide (21.0-32.0) mmol/L BUN (7.0-18.0) mg/dL Creatinine (0.6-1.0) mg/dL Est Cr Clr Drug Dosing mL/min Estimated GFR (MDRD) ml/min Glucose (74-106) mg/dL POC Glucose (70-99) mg/dL Calcium (8.5-10.1) mg/dL Magnesium (1.8-2.4) mg/dL Total Bilirubin (0.2-1.0) mg/dL AST (15-37) IU/L ALT (14-63) IU/L Alkaline Phosphatase (46-116) U/L C-Reactive Protein (0.00-0.90) mg/dL Total Protein (6.4-8.2) g/dL Albumin (3.4-5.0) g/dL Globulin (2.6-4.0) g/dL Albumin/Globulin Ratio (0.9-1.6) Lipase (73-393) U/L TSH 3rd Generation (0.36-3.74) uIU/mL Urine Color YELLOW Urine Appearance CLEAR Urine pH 7.0 (5.0-8.0) Ur Specific [place] 1.015 (1.001-1.035) Urine Protein NEGATIVE (NEGATIVE) mg/dL Urine Glucose (UA) NEGATIVE (NEGATIVE) mg/dL Urine Ketones NEGATIVE (NEGATIVE) mg/dL Urine Occult Blood NEGATIVE (NEGATIVE) Urine Nitrite NEGATIVE (NEGATIVE) Urine Bilirubin NEGATIVE (NEGATIVE) Urine Urobilinogen 0.2 (<2.0) EU/dL Ur Leukocyte Esterase TRACE H (NEGATIVE) Urine RBC 0-1 (0-2/HPF) Urine WBC 1-4 (0-5/HPF) Ur Epithelial Cells RARE (NONE-FEW) Urine Bacteria FEW (NEGATIVE) Urine Yeast FEW SARS-CoV-2 RNA ([place]) NEGATIVE (NEGATIVE) 10/13/20 10/13/20 Range/Units 06:10 11:16 WBC (4.0-11.0) K/uL RBC (4.30-5.90) M/uL Hgb (12.0-16.0) g/dL Hct (36.0-46.0) % MCV (80.0-98.0) fL MCH (27.0-32.0) pg MCHC (31.0-37.0) g/dL RDW Std Deviation (28.0-62.0) fl RDW Coeff of [place] (11.0-15.0) % Plt Count (150-400) K/uL MPV (7.40-12.00) fL Add Manual Diff Neutrophils % (Manual) (48.0-80.0) % Band Neutrophils % % Lymphocytes % (Manual) (16.0-40.0) % Monocytes % (Manual) (0.0-15.0) % Basophils % (Manual) (0.0-1.5) % Metamyelocytes % % Absolute Seg Neuts (1.4-5.7) Band Neutrophils # Lymphocytes # (Manual) (0.6-2.4) Monocytes # (Manual) (0.0-0.8) Basophils # (Manual) (0.0-0.1) Absolute Metamyelocyte ESR (0-29) mm/hr INR APTT (18.6-31.3) SEC Lactate (0.20-2.00) mmol/L Sodium (136-145) mmol/L Potassium (3.5-5.1) mmol/L Chloride (98-107) mmol/L Carbon Dioxide (21.0-32.0) mmol/L BUN (7.0-18.0) mg/dL Creatinine (0.6-1.0) mg/dL Est Cr Clr Drug Dosing mL/min Estimated GFR (MDRD) ml/min Glucose (74-106) mg/dL POC Glucose 99 79 (70-99) mg/dL Calcium (8.5-10.1) mg/dL Magnesium (1.8-2.4) mg/dL Total Bilirubin (0.2-1.0) mg/dL AST (15-37) IU/L ALT (14-63) IU/L Alkaline Phosphatase (46-116) U/L C-Reactive Protein (0.00-0.90) mg/dL Total Protein (6.4-8.2) g/dL Albumin (3.4-5.0) g/dL Globulin (2.6-4.0) g/dL Albumin/Globulin Ratio (0.9-1.6) Lipase (73-393) U/L TSH 3rd Generation (0.36-3.74) uIU/mL Urine Color Urine Appearance Urine pH (5.0-8.0) Ur Specific [place] (1.001-1.035) Urine Protein (NEGATIVE) mg/dL Urine Glucose (UA) (NEGATIVE) mg/dL Urine Ketones (NEGATIVE) mg/dL Urine Occult Blood (NEGATIVE) Urine Nitrite (NEGATIVE) Urine Bilirubin (NEGATIVE) Urine Urobilinogen (<2.0) EU/dL Ur Leukocyte Esterase (NEGATIVE) Urine RBC (0-2/HPF) Urine WBC (0-5/HPF) Ur Epithelial Cells (NONE-FEW) Urine Bacteria (NEGATIVE) Urine Yeast SARS-CoV-2 RNA ([place]) (NEGATIVE) Result Diagrams: 10/12/20 23:36 10/12/20 23:36 Diony Results Last 24 hrs: Microbiology 10/13/20 03:10 Anaerobic Blood Culture - Final Blood - Venous Sepsis Event Note - Evaluation Sepsis Screening Result: No Definite Risk - Focused Exam Vital Signs: Vital Signs Temp Pulse Resp BP Pulse Ox Pulse Ox 10/13/20 11:22 36.4 C 64 18 104/46 L 95 10/13/20 08:00 36.5 C 59 L 18 85/45 L 94 L 10/13/20 06:00 91/36 L 10/13/20 05:25 83/35 L 10/13/20 05:24 98 10/13/20 04:55 36.1 C 55 L 16 80/33 L 98 10/13/20 04:39 60 16 99/27 L 98 10/13/20 04:09 62 16 93/18 L 90 L 10/13/20 03:09 55 L 16 114/28 L 98 10/13/20 02:20 55 L 16 93/20 L 97 10/13/20 01:39 18 113/24 L 96 - Problem List Review Problem List Initiated/Reviewed/Updated: Yes - My Orders Last 24 Hours: My Active Orders 10/13/20 03:24 Albuterol 2 puff INH Q4H PRN Dextrose 50% in Water 50 ml IV ASDIRECTED PRN Glucagon,Human Recombinant [GlucaGen] 1 mg IM ASDIRECTED PRN Ondansetron [Zofran] 4 mg PO TID PRN carisoprodoL [Soma] 350 mg PO TID PRN 10/13/20 03:28 Blood Glucose Check, Bedside [RC] TIDAC Dextrose 50% in Water 50 ml IV ASDIRECTED PRN Glucagon,Human Recombinant [GlucaGen] 1 mg IM ASDIRECTED PRN 10/13/20 03:30 Pharmacy to Dose - Vancomycin 1 dose .XX ASDIRECTED Sodium Chloride 0.9% [Normal Saline] 1,000 ml IV ASDIRECTED 10/13/20 03:31 Telemetry Monitoring [Cardiac Monitoring] [RC] Q8H 10/13/20 03:36 Oxygen Therapy [RC] PRN Up ad [place] [RC] ASDIRECTED VTE/DVT Education [RC] PER UNIT ROUTINE Vital Signs [RC] Q4H Resuscitation Status Routine 10/13/20 03:37 Sequential Compression Device [OM.PC] Per Unit Routine 10/13/20 03:38 Antiembolic Devices [RC] PER UNIT ROUTINE 10/13/20 Breakfast [place] [employer] Diet [DIET] 10/13/20 07:30 Insulin Aspart [NovoLOG] See Protocol SUBCUT TIDAC 10/13/20 09:00 Clopidogrel [Plavix] 75 mg PO DAILY Ezetimibe [Zetia] 10 mg PO DAILY Fludrocortisone [Florinef] 0.1 mg PO DAILY Pantoprazole [ProTONIX] 40 mg PO DAILY 10/13/20 09:30 Piperacillin/Tazobactam [Zosyn] 2.25 gm Sodium Chloride 0.9% [Normal Saline] 50 ml IV Q6H 10/13/20 10:27 Occlusive Dressing [Wound Care] [RC] PRN 10/13/20 11:00 Patient's Own Medication [Ptom] 1 each INH DAILY Patient's Own Medication [Ptom] 2 each PO Q4H PRN 10/13/20 16:00 CBC W/O DIFF,HEMOGRAM [HEME] Routine COMPREHENSIVE METABOLIC PN,CMP [CHEM] Routine 10/13/20 21:00 Insulin Glarg,Human.Rec.Analog [LantUS Solostar] 4 units SUBCUT BEDTIME Thiamine [Vitamin B-1] 100 mg PO BEDTIME 10/14/20 06:00 Vancomycin 500 mg Sodium Chloride 0.9% [Normal Saline] 100 ml IV Q24H - Plan Plan:: 65 yo female with pmh 65 yo female with pmh of CAD, COPD,and liver cirrhosis who presented with malaise, low diastolic blood pressure and leukocytosis. in the setting of chronic diabetic foot ulcers. Diabetic foot ulcer. continue vancomycin, zosyn, MRI ordered, cultures pending, wound care consulted. Acute kidney injury/dehydration, hydrating with IV fludis Liver cirrhosis: holdig lasix, spironolactone, resume florinef CAD: on plavix. DM: lantus and ssi.
[2020-10-13 16:38] LABS: CARBON DIOXIDE,CO2 29.3 mmol/L (21.0-32.0); POTASSIUM,K 3.3 mmol/L (3.5-5.1)
[2020-10-13] MEDS: Sodium Chloride 0.9% 1,000 ML IV SCH (17:07)
[2020-10-13] MEDS ORDERED: Insulin Glargine,Human Rec. Analog 100 Units/ML 3 ML Pen SUBCUT SCH (21:00)
[2020-10-13] MEDS ORDERED: Thiamine 100 MG Tab PO SCH (21:00)
[2020-10-14] MEDS: Sodium Chloride 0.9% 1,000 ML IV SCH (01:37)
[2020-10-14] MEDS: Piperacillin/Tazobactam 2.25 GM in Sodium Chloride 0.9% 50 ML IV SCH ×3 (03:25→15:14)
[2020-10-14] MEDS: ACETAMINOPHEN WITH CODEINE PO PRN ×3 (05:09→13:49)
[2020-10-14 06:11] LABS: CARBON DIOXIDE,CO2 29.8 mmol/L (21.0-32.0); POTASSIUM,K 4.6 mmol/L (3.5-5.1)
[2020-10-14] MEDS ORDERED: Albuterol 8 GM Inhaler INH PRN (07:24)
[2020-10-14] MEDS ORDERED: Magnesium Sulfate/Water 2 GM/50 ML BAG IV ONE (07:29)
[2020-10-14] MEDS: Insulin Aspart 100 Units/ML 3 ML Pen SUBCUT SCH ×2 (07:44→13:11)
[2020-10-14] MEDS: Fludrocortisone 0.1 MG Tab PO SCH (08:29)
[2020-10-14] MEDS: Clopidogrel 75 MG Tab PO SCH (08:29)
[2020-10-14] MEDS: Ezetimibe 10 MG Tab PO SCH (08:29)
[2020-10-14] MEDS: UMECLIDINIUM INH SCH (08:30)
[2020-10-14] MEDS: [UNRECOGNIZED DRUG - OTHER] INH SCH (08:30)
[2020-10-14] MEDS: Pantoprazole 40 MG Tab.CR PO SCH (08:43)
--- NOTE | 2020-10-14 10:34 | PCM.PN ---
- General Info Date of Service: 10/14/20 Subjective Update: Bedside: c.o pain w/ tingling in right leg / left heel denies CP, SOB , BONILLA , fevers /chills Had a more formed BM this AM Functional Status: Reports: Pain Controlled - Review of Systems General: Reports: No Symptoms HEENT: Reports: No Symptoms Pulmonary: Reports: No Symptoms Cardiovascular: Reports: No Symptoms Gastrointestinal: Reports: No Symptoms 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: Reports: Leg Pain, Foot Pain Skin: Reports: Other Neurological: Denies: Dizziness, Headache Psychiatric: Reports: No Symptoms - Patient Data Vitals - Most Recent: Last Vital Signs Temp 97.3 F 10/14/20 07:24 Pulse 61 10/14/20 07:24 Resp 17 10/14/20 07:24 BP 110/39 L 10/14/20 07:24 Pulse Ox 97 10/14/20 07:24 Weight - Most Recent: 36.287 kg I&O - Last 24 Hours: Intake & Output 10/13/20 10/14/20 10/14/20 22:59 06:59 14:59 Intake Total 1986 2075 50 Output Total 1100 1500 Balance 886 575 50 Lab Results Last 24 Hours: Laboratory Results - last 24 hr 10/13/20 10/13/20 10/13/20 Range/Units 11:16 16:10 16:10 WBC 12.53 H (4.0-11.0) K/uL RBC 3.51 L (4.30-5.90) M/uL Hgb 10.6 L (12.0-16.0) g/dL Hct 32.3 L (36.0-46.0) % MCV 92.0 (80.0-98.0) fL MCH 30.2 (27.0-32.0) pg MCHC 32.8 (31.0-37.0) g/dL RDW Std Deviation 49.8 (28.0-62.0) fl RDW Coeff of Hesham 15 (11.0-15.0) % Plt Count 329 (150-400) K/uL MPV 9.70 (7.40-12.00) fL Neut % (Auto) (48.0-80.0) % Lymph % (Auto) (16.0-40.0) % Trimble % (Auto) (0.0-15.0) % Eos % (Auto) (0.0-7.0) % Baso % (Auto) (0.0-1.5) % Neut # (Auto) (1.4-5.7) K/uL Lymph # (Auto) (0.6-2.4) K/uL Trimble # (Auto) (0.0-0.8) K/uL Eos # (Auto) (0.0-0.7) K/uL Baso # (Auto) (0.0-0.1) K/uL Nucleated RBC % 0.0 /100WBC Nucleated RBCs # 0 K/uL Sodium 134 L (136-145) mmol/L Potassium 3.3 L (3.5-5.1) mmol/L Chloride 99 (98-107) mmol/L Carbon Dioxide 29.3 (21.0-32.0) mmol/L BUN 36 H (7.0-18.0) mg/dL Creatinine 1.2 H (0.6-1.0) mg/dL Est Cr Clr Drug Dosing 27.13 mL/min Estimated GFR (MDRD) 45.2 ml/min Glucose 195 H (74-106) mg/dL POC Glucose 79 (70-99) mg/dL Calcium 7.2 L (8.5-10.1) mg/dL Magnesium (1.8-2.4) mg/dL Total Bilirubin 0.3 (0.2-1.0) mg/dL AST 26 (15-37) IU/L ALT 22 (14-63) IU/L Alkaline Phosphatase 119 H (46-116) U/L Total Protein 5.7 L (6.4-8.2) g/dL Albumin 1.5 L (3.4-5.0) g/dL Globulin 4.2 H (2.6-4.0) g/dL Albumin/Globulin Ratio 0.4 L (0.9-1.6) 10/13/20 10/13/20 10/14/20 Range/Units 17:07 21:45 05:20 WBC 13.90 H (4.0-11.0) K/uL RBC 3.61 L (4.30-5.90) M/uL Hgb 11.0 L (12.0-16.0) g/dL Hct 33.4 L (36.0-46.0) % MCV 92.5 (80.0-98.0) fL MCH 30.5 (27.0-32.0) pg MCHC 32.9 (31.0-37.0) g/dL RDW Std Deviation 49.3 (28.0-62.0) fl RDW Coeff of Hesham 15 (11.0-15.0) % Plt Count 335 (150-400) K/uL MPV 9.90 (7.40-12.00) fL Neut % (Auto) 72.8 (48.0-80.0) % Lymph % (Auto) 16.3 (16.0-40.0) % Trimble % (Auto) 10.1 (0.0-15.0) % Eos % (Auto) 0.6 (0.0-7.0) % Baso % (Auto) 0.2 (0.0-1.5) % Neut # (Auto) 10.1 H (1.4-5.7) K/uL Lymph # (Auto) 2.3 (0.6-2.4) K/uL Trimble # (Auto) 1.4 H (0.0-0.8) K/uL Eos # (Auto) 0.1 (0.0-0.7) K/uL Baso # (Auto) 0.0 (0.0-0.1) K/uL Nucleated RBC % 0.0 /100WBC Nucleated RBCs # 0 K/uL Sodium (136-145) mmol/L Potassium (3.5-5.1) mmol/L Chloride (98-107) mmol/L Carbon Dioxide (21.0-32.0) mmol/L BUN (7.0-18.0) mg/dL Creatinine (0.6-1.0) mg/dL Est Cr Clr Drug Dosing mL/min Estimated GFR (MDRD) ml/min Glucose (74-106) mg/dL POC Glucose 159 H 207 H (70-99) mg/dL Calcium (8.5-10.1) mg/dL Magnesium (1.8-2.4) mg/dL Total Bilirubin (0.2-1.0) mg/dL AST (15-37) IU/L ALT (14-63) IU/L Alkaline Phosphatase (46-116) U/L Total Protein (6.4-8.2) g/dL Albumin (3.4-5.0) g/dL Globulin (2.6-4.0) g/dL Albumin/Globulin Ratio (0.9-1.6) 10/14/20 10/14/20 10/14/20 Range/Units 05:20 05:31 07:41 WBC (4.0-11.0) K/uL RBC (4.30-5.90) M/uL Hgb (12.0-16.0) g/dL Hct (36.0-46.0) % MCV (80.0-98.0) fL MCH (27.0-32.0) pg MCHC (31.0-37.0) g/dL RDW Std Deviation (28.0-62.0) fl RDW Coeff of Hesham (11.0-15.0) % Plt Count (150-400) K/uL MPV (7.40-12.00) fL Neut % (Auto) (48.0-80.0) % Lymph % (Auto) (16.0-40.0) % Tr[place]ble % (Auto) (0.0-15.0) % Eos % (Auto) (0.0-7.0) % Baso % (Auto) (0.0-1.5) % Neut # (Auto) (1.4-5.7) K/uL Lymph # (Auto) (0.6-2.4) K/uL Trimble # (Auto) (0.0-0.8) K/uL Eos # (Auto) (0.0-0.7) K/uL Baso # (Auto) (0.0-0.1) K/uL Nucleated RBC % /100WBC Nucleated RBCs # K/uL Sodium 135 L (136-145) mmol/L Potassium 4.6 (3.5-5.1) mmol/L Chloride 101 (98-107) mmol/L Carbon Dioxide 29.8 (21.0-32.0) mmol/L BUN 23 H (7.0-18.0) mg/dL Creatinine 1.2 H (0.6-1.0) mg/dL Est Cr Clr Drug Dosing 27.13 mL/min Estimated GFR (MDRD) 45.2 ml/min Glucose 153 H (74-106) mg/dL POC Glucose 120 H 114 H (70-99) mg/dL Calcium 7.4 L (8.5-10.1) mg/dL Magnesium 1.7 L (1.8-2.4) mg/dL Total Bilirubin (0.2-1.0) mg/dL AST (15-37) IU/L ALT (14-63) IU/L Alkaline Phosphatase (46-116) U/L Total Protein (6.4-8.2) g/dL Albumin (3.4-5.0) g/dL Globulin (2.6-4.0) g/dL Albumin/Globulin Ratio (0.9-1.6) Diony Results Last 24 Hours: Microbiology 10/13/20 03:20 Aerobic Blood Culture - Preliminary Blood - Venous - Lab Draw NO GROWTH AFTER 1 DAY Anaerobic Blood Culture - Preliminary NO GROWTH AFTER 1 DAY 10/13/20 03:10 Aerobic Blood Culture - Preliminary Blood - Venous NO GROWTH AFTER 1 DAY Anaerobic Blood Culture - Final Med Orders - Current: Current Medications Albuterol (Albuterol 8 Gm Inhaler) 2 gm INH Q4H PRN PRN Reason: Shortness of Breath Carisoprodol (Carisoprodol 350 Mg Tab) 350 mg PO TID PRN PRN Reason: Muscle Spasm Clopidogrel Bisulfate (Clopidogrel 75 Mg Tab) 75 mg PO DAILY [facility] Last Admin: 10/14/20 08:29 Dose: 75 mg Documented by: Dextrose/Water (50% Dextrose In Water 50 Ml Syringe) 50 ml IV ASDIRECTED PRN PRN Reason: Hypoglycemia Ezetimibe (Ezetimibe 10 Mg Tab) 10 mg PO DAILY [facility] Last Admin: 10/14/20 08:29 Dose: 10 mg Documented by: Fludrocortisone Acetate (Fludrocortisone 0.1 Mg Tab) 0.1 mg PO DAILY [facility] Last Admin: 10/14/20 08:29 Dose: 0.1 mg Documented by: Glucagon (Glucagon,Human Recombinant 1 Mg Vial) 1 mg IM ASDIRECTED PRN PRN Reason: Hypoglycemia Glucagon (Glucagon,Human Recombinant 1 Mg Vial) 1 mg IM ASDIRECTED PRN PRN Reason: Hypoglycemia Sodium Chloride (Normal Saline) 1,000 mls @ 999 mls/hr IV ASDIRECTED [facility] Last Admin: 10/13/20 03:17 Dose: 999 mls/hr Documented by: Sodium Chloride (Normal Saline) 1,000 mls @ 125 mls/hr IV ASDIRECTED [facility] Last Admin: 10/14/20 01:37 Dose: 125 mls/hr Documented by: Piperacillin Sod/Tazobactam (Sod 2.25 gm/ Sodium Chloride) 50 mls @ 100 mls/hr IV Q6H [facility] Last Admin: 10/14/20 09:49 Dose: 100 mls/hr Documented by: Vancomycin HCl 500 mg/ Sodium (Chloride) 100 mls @ 100 mls/hr IV Q24H [facility] Last Admin: 10/14/20 05:25 Dose: 100 mls/hr Documented by: Insulin Aspart (Insulin Aspart 100 Units/Ml 3 Ml Pen) 0 unit SUBCUT TIDAC [facility]; Protocol Last Admin: 10/14/20 07:44 Dose: Not Given Documented by: Insulin Glargine (Insulin Glargine,Human Rec. Analog 100 Units/Ml 3 Ml Pen) 4 units SUBCUT BEDTIME [facility] Last Admin: 10/13/20 21:48 Dose: 4 units Documented by: Ondansetron HCl (Ondansetron 4 Mg Tab) 4 mg PO TID PRN PRN Reason: Nausea Pantoprazole Sodium (Pantoprazole 40 Mg Tab.Cr) 40 mg PO DAILY [facility] Last Admin: 10/14/20 08:43 Dose: 40 mg Documented by: Acetaminophen With Codeine [ Acetaminophen-Cod #4 ] 2 each PO Q4H PRN PRN Reason: Pain Last Admin: 10/14/20 08:53 Dose: 2 each Documented by: Umeclidinium 62.5mcg (/Vilanterol 25mcg) 1 each INH DAILY [facility] Last Admin: 10/14/20 08:30 Dose: 1 each Documented by: Sodium Chloride (Sodium Chloride 0.9% 10 Ml Syringe) 10 ml FLUSH ASDIRECTED PRN PRN Reason: Keep Vein Open Last Admin: 10/13/20 00:39 Dose: 10 ml Documented by: Sodium Chloride (Sodium Chloride 0.9% 2.5 Ml Syringe) 2.5 ml FLUSH ASDIRECTED PRN PRN Reason: Keep Vein Open Last Admin: 10/13/20 00:39 Dose: 2.5 ml Documented by: Thiamine HCl (Thiamine 100 Mg Tab) 100 mg PO BEDTIME MIKHAIL Last Admin: 10/13/20 21:47 Dose: 100 mg Documented by: Vancomycin HCl (Pharmacy To Dose - Vancomycin) 1 dose .XX ASDIRECTED MIKHAIL Discontinued Medications Sodium Chloride (Normal Saline) 1,000 mls @ 999 mls/hr IV .Bolus ONE Stop: 10/13/20 01:22 Last Admin: 10/13/20 00:38 Dose: 999 mls/hr Documented by: Piperacillin Sod/Tazobactam (Sod 3.375 gm/ Sodium Chloride) 50 mls @ 100 mls/hr IV ONETIME ONE Stop: 10/13/20 03:46 Last Admin: 10/13/20 03:21 Dose: 100 mls/hr Documented by: Sodium Chloride (Normal Saline) Confirm Administered Dose 50 mls @ as directed .ROUTE .STK-MED ONE Stop: 10/13/20 03:30 Last Admin: 10/13/20 06:57 Dose: Not Given Documented by: Vancomycin HCl 500 mg/ Sodium (Chloride) 100 mls @ 100 mls/hr IV Q24H [facility] Last Admin: 10/13/20 06:13 Dose: 100 mls/hr Documented by: Magnesium Sulfate (Magnesium Sulfate In Water 2 Gm/50 Ml) 2 gm in 50 mls @ 50 mls/hr IV ONETIME ONE Stop: 10/14/20 08:28 Last Admin: 10/14/20 08:42 Dose: 50 mls/hr Documented by: Non-Formulary Medication (Acetaminophen With Codeine [Acetaminophen-Cod #4]) 2 tab PO Q4HR PRN PRN Reason: Pain Non-Formulary Medication (Albuterol) 2 puff INH Q4H PRN PRN Reason: Shortness of Breath Ondansetron HCl (Ondansetron 4 Mg/2 Ml Sdv) 4 mg IVPUSH ONETIME ONE Stop: 10/13/20 00:23 Last Admin: 10/13/20 00:38 Dose: 4 mg Documented by: - Exam Quality Assessment: No: Supplemental Oxygen General: Alert, Oriented, Other (decreased muslce mass ) HEENT: EOMI Neck: Supple Lungs: Clear to Auscultation, Normal Respiratory Effort Cardiovascular: Regular Rate, Regular Rhythm GI/Abdominal Exam: Soft Extremities: Other (left foot :2 x 2 inch circualr area of skin breakdown/ulceration w. darkened center. 2nd digt: mild ulceration nted at tip of toe; sensation intact however pain elicited w. minimal touch. DP pulses intact....Right foot :1 cm circular ulcer w. darkened eschar in center w. sens ation intact; pulse inta) Skin: Other (right knee: punctate area of old wound/ no surrounding erythema .....low back: padding in-situ ; no signs of skin breakdown noted ) Wound/Incisions: No: Drainage Neurological: No New Focal Deficit Psy/Mental Status: Alert, Normal Affect, Normal Mood - Patient Data Lab Results Last 24 hrs: Laboratory Results - last 24 hr 10/13/20 10/13/20 10/13/20 Range/Units 11:16 16:10 16:10 WBC 12.53 H (4.0-11.0) K/uL RBC 3.51 L (4.30-5.90) M/uL Hgb 10.6 L (12.0-16.0) g/dL Hct 32.3 L (36.0-46.0) % MCV 92.0 (80.0-98.0) fL MCH 30.2 (27.0-32.0) pg MCHC 32.8 (31.0-37.0) g/dL RDW Std Deviation 49.8 (28.0-62.0) fl RDW Coeff of Hesham 15 (11.0-15.0) % Plt Count 329 (150-400) K/uL MPV 9.70 (7.40-12.00) fL Neut % (Auto) (48.0-80.0) % Lymph % (Auto) (16.0-40.0) % [place] % (Auto) (0.0-15.0) % Eos % (Auto) (0.0-7.0) % Baso % (Auto) (0.0-1.5) % Neut # (Auto) (1.4-5.7) K/uL Lymph # (Auto) (0.6-2.4) K/uL Tr[place]ble # (Auto) (0.0-0.8) K/uL Eos # (Auto) (0.0-0.7) K/uL Baso # (Auto) (0.0-0.1) K/uL Nucleated RBC % 0.0 /100WBC Nucleated RBCs # 0 K/uL Sodium 134 L (136-145) mmol/L Potassium 3.3 L (3.5-5.1) mmol/L Chloride 99 (98-107) mmol/L Carbon Dioxide 29.3 (21.0-32.0) mmol/L BUN 36 H (7.0-18.0) mg/dL Creatinine 1.2 H (0.6-1.0) mg/dL Est Cr Clr Drug Dosing 27.13 mL/min Estimated GFR (MDRD) 45.2 ml/min Glucose 195 H (74-106) mg/dL POC Glucose 79 (70-99) mg/dL Calcium 7.2 L (8.5-10.1) mg/dL Magnesium (1.8-2.4) mg/dL Total Bilirubin 0.3 (0.2-1.0) mg/dL AST 26 (15-37) IU/L ALT 22 (14-63) IU/L Alkaline Phosphatase 119 H (46-116) U/L Total Protein 5.7 L (6.4-8.2) g/dL Albumin 1.5 L (3.4-5.0) g/dL Globulin 4.2 H (2.6-4.0) g/dL Albumin/Globulin Ratio 0.4 L (0.9-1.6) 10/13/20 10/13/20 10/14/20 Range/Units 17:07 21:45 05:20 WBC 13.90 H (4.0-11.0) K/uL RBC 3.61 L (4.30-5.90) M/uL Hgb 11.0 L (12.0-16.0) g/dL Hct 33.4 L (36.0-46.0) % MCV 92.5 (80.0-98.0) fL MCH 30.5 (27.0-32.0) pg MCHC 32.9 (31.0-37.0) g/dL RDW Std Deviation 49.3 (28.0-62.0) fl RDW Coeff of Hesham 15 (11.0-15.0) % Plt Count 335 (150-400) K/uL MPV 9.90 (7.40-12.00) fL Neut % (Auto) 72.8 (48.0-80.0) % Lymph % (Auto) 16.3 (16.0-40.0) % [place] % (Auto) 10.1 (0.0-15.0) % Eos % (Auto) 0.6 (0.0-7.0) % Baso % (Auto) 0.2 (0.0-1.5) % Neut # (Auto) 10.1 H (1.4-5.7) K/uL Lymph # (Auto) 2.3 (0.6-2.4) K/uL [place]ble # (Auto) 1.4 H (0.0-0.8) K/uL Eos # (Auto) 0.1 (0.0-0.7) K/uL Baso # (Auto) 0.0 (0.0-0.1) K/uL Nucleated RBC % 0.0 /100WBC Nucleated RBCs # 0 K/uL Sodium (136-145) mmol/L Potassium (3.5-5.1) mmol/L Chloride (98-107) mmol/L Carbon Dioxide (21.0-32.0) mmol/L BUN (7.0-18.0) mg/dL Creatinine (0.6-1.0) mg/dL Est Cr Clr Drug Dosing mL/min Estimated GFR (MDRD) ml/min Glucose (74-106) mg/dL POC Glucose 159 H 207 H (70-99) mg/dL Calcium (8.5-10.1) mg/dL Magnesium (1.8-2.4) mg/dL Total Bilirubin (0.2-1.0) mg/dL AST (15-37) IU/L ALT (14-63) IU/L Alkaline Phosphatase (46-116) U/L Total Protein (6.4-8.2) g/dL Albumin (3.4-5.0) g/dL Globulin (2.6-4.0) g/dL Albumin/Globulin Ratio (0.9-1.6) 10/14/20 10/14/20 10/14/20 Range/Units 05:20 05:31 07:41 WBC (4.0-11.0) K/uL RBC (4.30-5.90) M/uL Hgb (12.0-16.0) g/dL Hct (36.0-46.0) % MCV (80.0-98.0) fL MCH (27.0-32.0) pg MCHC (31.0-37.0) g/dL RDW Std Deviation (28.0-62.0) fl RDW Coeff of Hesham (11.0-15.0) % Plt Count (150-400) K/uL MPV (7.40-12.00) fL Neut % (Auto) (48.0-80.0) % Lymph % (Auto) (16.0-40.0) % [place] % (Auto) (0.0-15.0) % Eos % (Auto) (0.0-7.0) % Baso % (Auto) (0.0-1.5) % Neut # (Auto) (1.4-5.7) K/uL Lymph # (Auto) (0.6-2.4) K/uL Tr[place]ble # (Auto) (0.0-0.8) K/uL Eos # (Auto) (0.0-0.7) K/uL Baso # (Auto) (0.0-0.1) K/uL Nucleated RBC % /100WBC Nucleated RBCs # K/uL Sodium 135 L (136-145) mmol/L Potassium 4.6 (3.5-5.1) mmol/L Chloride 101 (98-107) mmol/L Carbon Dioxide 29.8 (21.0-32.0) mmol/L BUN 23 H (7.0-18.0) mg/dL Creatinine 1.2 H (0.6-1.0) mg/dL Est Cr Clr Drug Dosing 27.13 mL/min Estimated GFR (MDRD) 45.2 ml/min Glucose 153 H (74-106) mg/dL POC Glucose 120 H 114 H (70-99) mg/dL Calcium 7.4 L (8.5-10.1) mg/dL Magnesium 1.7 L (1.8-2.4) mg/dL Total Bilirubin (0.2-1.0) mg/dL AST (15-37) IU/L ALT (14-63) IU/L Alkaline Phosphatase (46-116) U/L Total Protein (6.4-8.2) g/dL Albumin (3.4-5.0) g/dL Globulin (2.6-4.0) g/dL Albumin/Globulin Ratio (0.9-1.6) Result Diagrams: 10/14/20 05:20 10/14/20 05:20 Diony Results Last 24 hrs: Microbiology 10/13/20 03:20 Aerobic Blood Culture - Preliminary Blood - Venous - Lab Draw NO GROWTH AFTER 1 DAY Anaerobic Blood Culture - Preliminary NO GROWTH AFTER 1 DAY 10/13/20 03:10 Aerobic Blood Culture - Preliminary Blood - Venous NO GROWTH AFTER 1 DAY Anaerobic Blood Culture - Final Sepsis Event Note - Evaluation Sepsis Screening Result: No Definite Risk - Focused Exam Vital Signs: Vital Signs Temp Pulse Resp BP Pulse Ox Pulse Ox 10/14/20 07:24 97.3 F 61 17 110/39 L 97 10/14/20 04:18 97 10/14/20 03:23 97.5 F 61 18 124/26 L 97 10/13/20 23:50 98.5 F 61 16 93/38 L 98 - Problem List Review Problem List Initiated/Reviewed/Updated: Yes - Plan Plan:: 1. Leukocytosis 2. Diabetic foot ulcers bilaterally 3. ALEXANDRA: improving 4. Hypomagnesemia 5. PMH: liver cirrhosis, COPD, DM, CAD 1. Leukocytosis : marginally increased but VSS otherwise ; MRI of foot ulceration scheduled this AM; will discuss case w. Dr Villegas of Podi atry for further recommendations Lactate WNL Chronic fluorinef usage Continue florinef for soft Diastolic BP; hold other BP meds Blood cultures x 1 day: negative 2. DM foot ulcerations: cont. vanc+ zosyn ; MRI pending Will discuss case w. on-call podiatry once MRI results return Continue wound care as directed 3. ALEXANDRA: improving ; continue IV fluids
[2020-10-14] MEDS ORDERED: Gadobenate Dimeglumine 529 MG/ML 20 ML SDV IVPUSH STA (12:02)
--- NOTE | 2020-10-14 13:19 | MR ---
HISTORY: Foot pain. Leukocytosis. Diabetic foot ulcer. TECHNIQUE: MRI right foot with and without contrast. 6 cc IV MultiHance. COMPARISON: None FINDINGS: Motion artifact limits sensitivity of the examination. - Osseous structures: No acute fracture or AVN. No evidence of osteomyelitis. - Joint spaces: TMT, metatarsophalangeal and interphalangeal joints are maintained. - Tendons, ligaments and muscular structures: The flexor and extensor tendons at the level forefoot are intact. Lisfranc ligament is intact. - Soft tissues: No Sullivan`s neuroma. The plantar aponeurosis at the forefoot level is intact. Diffuse severe muscle atrophy. Diffuse subcutaneous edema. IMPRESSION: 1. No evidence of osteomyelitis. 2. Diffuse subcutaneous edema which could be due to cellulitis. 3. Diffuse muscle atrophy. Dictated by Casa Bradley MD @ 10/14/2020 1:18:[address] Casa Bradley @ Oct 14 2020 1:18PM
--- NOTE | 2020-10-14 13:29 | MR ---
HISTORY: Foot pain. Leukocytosis. Diabetic foot ulcer. TECHNIQUE: MRI left foot with and without contrast. 6 cc IV MultiHance. COMPARISON: 06/12/2020 MRI left foot FINDINGS: Motion artifact limits sensitivity of the examination. - Osseous structures: Confluent T1 hypointense signal involving the distal half of the proximal phalanx of the 2nd toe as well as the proximal portion of the middle phalanx of the 2nd toe (series 801, image 14) consistent with osteomyelitis. There is corresponding increased STIR signal in this area. Mild confluent T1 hypointense signal in the posterior calcaneus with corresponding increased STIR signal, and enhancement on postcontrast images consistent with osteomyelitis as well. - Joint spaces: Irregularity of the proximal interphalangeal joint of the 2nd toe. Remainder of the joint spaces are unremarkable. - Tendons, ligaments and muscular structures: The flexor and extensor tendons at the level forefoot are intact. Lisfranc ligament is intact. - Soft tissues: No Sullivan`s neuroma. The plantar aponeurosis at the forefoot level is intact. Diffuse severe muscle atrophy is again noted. Diffuse subcutaneous edema most pronounced dorsally. IMPRESSION: 1. Osteomyelitis involving the distal portion of the proximal phalanx of the 2nd toe in the proximal portion of the middle phalanx of the 2nd toe. Second PIP joint space irregularity could be due to septic arthritis/infection. 2. Osteomyelitis of the posterior calcaneus. 3. Diffuse subcutaneous edema which could be due to cellulitis. 4. Diffuse muscle atrophy. Dictated by Casa Bradley MD @ 10/14/2020 1:28:[address] Casa Bradley @ Oct 14 2020 1:28PM
[2020-10-14 15:05] LABS: HEMOGLOBIN A1C 10.4 %
--- NOTE | 2020-10-14 15:08 | PCM.DCSUM1 ---
Discharge Summary - Hospital Course Free Text/Narrative:: Hospital course: Patient is a 65-year-old female with significant past medical history of diabetes with bilateral foot ulcerations, CAD, hypertension, COPD, liver cirrhosis presenting on October 13, 2020 for generalized weakness/malaise. Patient was also unable to walk secondary to weakness and pain in her feet. Patient was also found to have a low diastolic blood pressure however her lactic acid, cultures (x 1 day) were negative. Patient was started on vancomycin and Zosyn and MRI was ordered. Following day: MRI of the left foot showed calcaneal osteomyelitis and also osteomyelitis involving distal portion of proximal phalanx of second toe (in the proximal portion of the middle phalanx of the second toe). No osteomyelitis was noted over ulceration on right foot however concerns for cellulitis were also appreciated. Patient was continued on vancomycin and Zosyn and discussed case with podiatry in [facility] secondary to not having podiatry available at facility. Patient was ultimately transferred via ground ambulance to [facility] due to concerns about worsening osteomyelitis and need for podiatry evaluation. Worsening Leukocytosis. A1c of >10 (increased from 9 since 8 months ago) VSS: stable w. 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 Transfer initiated and ultimately transferred via ground ambulance Patient was in stable condition Discharge condition: Stable Disposition: Transfer Discharge medications: Home medications/continued vancomycin/Zosyn Discharge instructions: Transfer Follow-up: Transfer - Discharge Data Discharge Date: 10/14/20 Discharge Disposition: DC/Tfer to Acute Hospital 02 Condition: Stable - Referral to Home Health Primary Care Physician: Oskar Verma MD - Patient Summary/Data Consults: Consultations 10/13/20 12:35 Consult to Wound Care Services [CONS] Routine - Patient Instructions Diet: Diabetic Diet - Discharge Plan Home Medications: Home Meds Acetaminophen with Codeine [Acetaminophen-Cod #4] 2 tab PO Q4HR PRN 01/18/15 [History] Propranolol HCl 10 mg PO TID 01/18/15 [History] Sodium Bicarbonate 650 mg PO BIDMEALS 01/18/15 [History] amLODIPine [Norvasc] 5 mg PO DAILY 01/18/15 [History] Clopidogrel Bisulfate [Clopidogrel] 75 mg PO DAILY 01/21/18 [History] Pantoprazole [ProTONIX] 40 mg PO DAILY 01/21/18 [History] carisoprodoL [Carisoprodol] 350 mg PO TID PRN 01/21/18 [History] ondansetron HCL [Zofran] 4 mg PO TID PRN 01/21/18 [History] Albuterol [Ventolin HFA] 2 puff INH Q4H PRN 12/12/18 [History] Carboxymethylcellulose Sodium [Refresh Tears] 1 drop EYEBOTH QID PRN 12/12/18 [History] Ezetimibe 10 mg PO DAILY 12/12/18 [History] Insulin Glargine,Hum.Rec.Anlog [Basaglar Kwikpen U-100] 7 units SUBCUT BEDTIME 12/12/18 [History] Isosorbide Mononitrate [Imdur] 30 mg PO DAILY 12/12/18 [History] Nitroglycerin 0.4 mg SL .EVERY 5 MINUTES PRN MDD 3 TABLETS 12/12/18 [History] Aspirin 81 mg PO DAILY 12/14/18 [History] Glucagon [Baqsimi] 1 spray UMM ASDIRECTED PRN 01/15/20 [History] Insulin Aspart (Niacinamide) [Fiasp 100 Unit/ml Flextouch] 4 - 5 unit SUBCUT TIDMEALS MDD 25 units 01/15/20 [History] Losartan Potassium 25 mg PO DAILY 01/15/20 [History] Alendronate Sodium 35 mg PO WEEKLY 03/12/20 [History] Fludrocortisone [Florinef] 0.2 mg PO DAILY 06/12/20 [History] glucagon HCL [Glucagon Emergency Kit] 1 mg SUBCUT . NEEDED PRN 06/12/20 [History] Furosemide [Lasix] 40 mg PO BID #60 tablet 06/19/20 [Rx] Spironolactone 50 mg PO DAILY #30 tablet 06/19/20 [Rx] metOLazone [Zaroxolyn] 5 mg PO Q48H #30 tablet 06/19/20 [Rx] Amylase/Lipase/Protease [Creon DR 12,000 Units] 24,000 - 36,000 unit PO TIDMEALS 10/13/20 [History] Potassium Chloride [Klor-Con M20] 20 meq PO DAILY 10/13/20 [History] Amylase/Lipase/Protease [Uzma DR 12,000 Units] 12,000 unit PO .WITHSNACKS 10/14/20 [History] Calcium Carbonate [Tums Extra Strength] 750 mg PO ASDIRECTED 10/14/20 [History] Cholestyramine/Aspartame [Cholestyramine Light Powder] 8.5 gm PO BID 10/14/20 [History] Clopidogrel [Plavix] 75 mg PO DAILY 10/14/20 [History] Levocetirizine Dihydrochloride 5 mg PO DAILY PRN 10/14/20 [History] Patient's Own Medication [Ptom] 1 each INH DAILY each 10/14/20 [Rx] Pharmacy to Dose - Vancomycin 1 dose .XX ASDIRECTED each 10/14/20 [Rx] Piperacillin/Tazobactam [Zosyn] 2.25 gm IV Q6H vial 10/14/20 [Rx] Propranolol HCl 10 mg PO TID 10/14/20 [History] Thiamine [Vitamin B-1] 100 mg PO BEDTIME tablet 10/14/20 [Rx] Umeclidinium Brm/Vilanterol Tr [Anoro Ellipta 62.5-25 MCG] 1 inh INH DAILY 10/14/20 [History] Vancomycin 500 mg IV Q24H sdv 10/14/20 [Rx] amLODIPine [Norvasc] 5 mg PO DAILY 10/14/20 [History] Referrals: Oskar Verma MD [Primary Care Provider] - 10/23/20 9:30 am - Discharge Summary/Plan Comment DC Time >30 min.: No - Patient Data Vitals - Most Recent: Last Vital Signs Temp 97.3 F 10/14/20 12:57 Pulse 73 10/14/20 12:57 Resp 18 10/14/20 12:57 BP 153/56 H 10/14/20 12:57 Pulse Ox 97 10/14/20 12:57 Weight - Most Recent: 36.287 kg I&O - Last 24 hours: Intake & Output 10/14/20 10/14/20 10/14/20 06:59 14:59 22:59 Intake Total 2075 100 Output Total 1500 Balance 575 100 Lab Results - Last 24 hrs: Laboratory Results - last 24 hr 10/13/20 10/13/20 10/13/20 Range/Units 16:10 16:10 17:07 WBC 12.53 H (4.0-11.0) K/uL RBC 3.51 L (4.30-5.90) M/uL Hgb 10.6 L (12.0-16.0) g/dL Hct 32.3 L (36.0-46.0) % MCV 92.0 (80.0-98.0) fL MCH 30.2 (27.0-32.0) pg MCHC 32.8 (31.0-37.0) g/dL RDW Std Deviation 49.8 (28.0-62.0) fl RDW Coeff of Hesham 15 (11.0-15.0) % Plt Count 329 (150-400) K/uL MPV 9.70 (7.40-12.00) fL Neut % (Auto) (48.0-80.0) % Lymph % (Auto) (16.0-40.0) % Gates % (Auto) (0.0-15.0) % Eos % (Auto) (0.0-7.0) % Baso % (Auto) (0.0-1.5) % Neut # (Auto) (1.4-5.7) K/uL Lymph # (Auto) (0.6-2.4) K/uL Gates # (Auto) (0.0-0.8) K/uL Eos # (Auto) (0.0-0.7) K/uL Baso # (Auto) (0.0-0.1) K/uL Nucleated RBC % 0.0 /100WBC Nucleated RBCs # 0 K/uL Sodium 134 L (136-145) mmol/L Potassium 3.3 L (3.5-5.1) mmol/L Chloride 99 (98-107) mmol/L Carbon Dioxide 29.3 (21.0-32.0) mmol/L BUN 36 H (7.0-18.0) mg/dL Creatinine 1.2 H (0.6-1.0) mg/dL Est Cr Clr Drug Dosing 27.13 mL/min Estimated GFR (MDRD) 45.2 ml/min Glucose 195 H (74-106) mg/dL POC Glucose 159 H (70-99) mg/dL Hemoglobin A1c (4.5 - 6.2) % Calcium 7.2 L (8.5-10.1) mg/dL Magnesium (1.8-2.4) mg/dL Total Bilirubin 0.3 (0.2-1.0) mg/dL AST 26 (15-37) IU/L ALT 22 (14-63) IU/L Alkaline Phosphatase 119 H (46-116) U/L Total Protein 5.7 L (6.4-8.2) g/dL Albumin 1.5 L (3.4-5.0) g/dL Globulin 4.2 H (2.6-4.0) g/dL Albumin/Globulin Ratio 0.4 L (0.9-1.6) 10/13/20 10/14/20 10/14/20 Range/Units 21:45 05:20 05:20 WBC 13.90 H (4.0-11.0) K/uL RBC 3.61 L (4.30-5.90) M/uL Hgb 11.0 L (12.0-16.0) g/dL Hct 33.4 L (36.0-46.0) % MCV 92.5 (80.0-98.0) fL MCH 30.5 (27.0-32.0) pg MCHC 32.9 (31.0-37.0) g/dL RDW Std Deviation 49.3 (28.0-62.0) fl RDW Coeff of Hesham 15 (11.0-15.0) % Plt Count 335 (150-400) K/uL MPV 9.90 (7.40-12.00) fL Neut % (Auto) 72.8 (48.0-80.0) % Lymph % (Auto) 16.3 (16.0-40.0) % Gates % (Auto) 10.1 (0.0-15.0) % Eos % (Auto) 0.6 (0.0-7.0) % Baso % (Auto) 0.2 (0.0-1.5) % Neut # (Auto) 10.1 H (1.4-5.7) K/uL Lymph # (Auto) 2.3 (0.6-2.4) K/uL Gates # (Auto) 1.4 H (0.0-0.8) K/uL Eos # (Auto) 0.1 (0.0-0.7) K/uL Baso # (Auto) 0.0 (0.0-0.1) K/uL Nucleated RBC % 0.0 /100WBC Nucleated RBCs # 0 K/uL Sodium 135 L (136-145) mmol/L Potassium 4.6 (3.5-5.1) mmol/L Chloride 101 (98-107) mmol/L Carbon Dioxide 29.8 (21.0-32.0) mmol/L BUN 23 H (7.0-18.0) mg/dL Creatinine 1.2 H (0.6-1.0) mg/dL Est Cr Clr Drug Dosing 27.13 mL/min Estimated GFR (MDRD) 45.2 ml/min Glucose 153 H (74-106) mg/dL POC Glucose 207 H (70-99) mg/dL Hemoglobin A1c (4.5 - 6.2) % Calcium 7.4 L (8.5-10.1) mg/dL Magnesium 1.7 L (1.8-2.4) mg/dL Total Bilirubin (0.2-1.0) mg/dL AST (15-37) IU/L ALT (14-63) IU/L Alkaline Phosphatase (46-116) U/L Total Protein (6.4-8.2) g/dL Albumin (3.4-5.0) g/dL Globulin (2.6-4.0) g/dL Albumin/Globulin Ratio (0.9-1.6) 10/14/20 10/14/20 10/14/20 Range/Units 05:20 05:31 07:41 WBC (4.0-11.0) K/uL RBC (4.30-5.90) M/uL Hgb (12.0-16.0) g/dL Hct (36.0-46.0) % MCV (80.0-98.0) fL MCH (27.0-32.0) pg MCHC (31.0-37.0) g/dL RDW Std Deviation (28.0-62.0) fl RDW Coeff of Hesham (11.0-15.0) % Plt Count (150-400) K/uL MPV (7.40-12.00) fL Neut % (Auto) (48.0-80.0) % Lymph % (Auto) (16.0-40.0) % Gates % (Auto) (0.0-15.0) % Eos % (Auto) (0.0-7.0) % Baso % (Auto) (0.0-1.5) % Neut # (Auto) (1.4-5.7) K/uL Lymph # (Auto) (0.6-2.4) K/uL Gates # (Auto) (0.0-0.8) K/uL Eos # (Auto) (0.0-0.7) K/uL Baso # (Auto) (0.0-0.1) K/uL Nucleated RBC % /100WBC Nucleated RBCs # K/uL Sodium (136-145) mmol/L Potassium (3.5-5.1) mmol/L Chloride (98-107) mmol/L Carbon Dioxide (21.0-32.0) mmol/L BUN (7.0-18.0) mg/dL Creatinine (0.6-1.0) mg/dL Est Cr Clr Drug Dosing mL/min Estimated GFR (MDRD) ml/min Glucose (74-106) mg/dL POC Glucose 120 H 114 H (70-99) mg/dL Hemoglobin A1c 10.4 H (4.5 - 6.2) % Calcium (8.5-10.1) mg/dL Magnesium (1.8-2.4) mg/dL Total Bilirubin (0.2-1.0) mg/dL AST (15-37) IU/L ALT (14-63) IU/L Alkaline Phosphatase (46-116) U/L Total Protein (6.4-8.2) g/dL Albumin (3.4-5.0) g/dL Globulin (2.6-4.0) g/dL Albumin/Globulin Ratio (0.9-1.6) 10/14/20 Range/Units 12:53 WBC (4.0-11.0) K/uL RBC (4.30-5.90) M/uL Hgb (12.0-16.0) g/dL Hct (36.0-46.0) % MCV (80.0-98.0) fL MCH (27.0-32.0) pg MCHC (31.0-37.0) g/dL RDW Std Deviation (28.0-62.0) fl RDW Coeff of Hesham (11.0-15.0) % Plt Count (150-400) K/uL MPV (7.40-12.00) fL Neut % (Auto) (48.0-80.0) % Lymph % (Auto) (16.0-40.0) % Gates % (Auto) (0.0-15.0) % Eos % (Auto) (0.0-7.0) % Baso % (Auto) (0.0-1.5) % Neut # (Auto) (1.4-5.7) K/uL Lymph # (Auto) (0.6-2.4) K/uL Gates # (Auto) (0.0-0.8) K/uL Eos # (Auto) (0.0-0.7) K/uL Baso # (Auto) (0.0-0.1) K/uL Nucleated RBC % /100WBC Nucleated RBCs # K/uL Sodium (136-145) mmol/L Potassium (3.5-5.1) mmol/L Chloride (98-107) mmol/L Carbon Dioxide (21.0-32.0) mmol/L BUN (7.0-18.0) mg/dL Creatinine (0.6-1.0) mg/dL Est Cr Clr Drug Dosing mL/min Estimated GFR (MDRD) ml/min Glucose (74-106) mg/dL POC Glucose 172 H (70-99) mg/dL Hemoglobin A1c (4.5 - 6.2) % Calcium (8.5-10.1) mg/dL Magnesium (1.8-2.4) mg/dL Total Bilirubin (0.2-1.0) mg/dL AST (15-37) IU/L ALT (14-63) IU/L Alkaline Phosphatase (46-116) U/L Total Protein (6.4-8.2) g/dL Albumin (3.4-5.0) g/dL Globulin (2.6-4.0) g/dL Albumin/Globulin Ratio (0.9-1.6) BRENDAN Results - Last 24 hrs: Microbiology 10/13/20 03:20 Aerobic Blood Culture - Preliminary Blood - Venous - Lab Draw NO GROWTH AFTER 1 DAY Anaerobic Blood Culture - Preliminary NO GROWTH AFTER 1 DAY 10/13/20 03:10 Aerobic Blood Culture - Preliminary Blood - Venous NO GROWTH AFTER 1 DAY Anaerobic Blood Culture - Final Med Orders - Current: Current Medications Albuterol (Albuterol 8 Gm Inhaler) 2 gm INH Q4H PRN PRN Reason: Shortness of Breath Carisoprodol (Carisoprodol 350 Mg Tab) 350 mg PO TID PRN PRN Reason: Muscle Spasm Clopidogrel Bisulfate (Clopidogrel 75 Mg Tab) 75 mg PO DAILY [facility] Last Admin: 10/14/20 08:29 Dose: 75 mg Documented by: Dextrose/Water (50% Dextrose In Water 50 Ml Syringe) 50 ml IV ASDIRECTED PRN PRN Reason: Hypoglycemia Ezetimibe (Ezetimibe 10 Mg Tab) 10 mg PO DAILY [facility] Last Admin: 10/14/20 08:29 Dose: 10 mg Documented by: Fludrocortisone Acetate (Fludrocortisone 0.1 Mg Tab) 0.1 mg PO DAILY [facility] Last Admin: 10/14/20 08:29 Dose: 0.1 mg Documented by: Glucagon (Glucagon,Human Recombinant 1 Mg Vial) 1 mg IM ASDIRECTED PRN PRN Reason: Hypoglycemia Glucagon (Glucagon,Human Recombinant 1 Mg Vial) 1 mg IM ASDIRECTED PRN PRN Reason: Hypoglycemia Sodium Chloride (Normal Saline) 1,000 mls @ 999 mls/hr IV ASDIRECTED [facility] Last Admin: 10/13/20 03:17 Dose: 999 mls/hr Documented by: Sodium Chloride (Normal Saline) 1,000 mls @ 125 mls/hr IV ASDIRECTED [facility] Last Admin: 10/14/20 01:37 Dose: 125 mls/hr Documented by: Piperacillin Sod/Tazobactam (Sod 2.25 gm/ Sodium Chloride) 50 mls @ 100 mls/hr IV Q6H [facility] Last Admin: 10/14/20 09:49 Dose: 100 mls/hr Documented by: Vancomycin HCl 500 mg/ Sodium (Chloride) 100 mls @ 100 mls/hr IV Q24H [facility] Last Admin: 10/14/20 05:25 Dose: 100 mls/hr Documented by: Insulin Aspart (Insulin Aspart 100 Units/Ml 3 Ml Pen) 0 unit SUBCUT TIDAC [facility]; Protocol Last Admin: 10/14/20 13:11 Dose: 1 unit Documented by: Insulin Glargine (Insulin Glargine,Human Rec. Analog 100 Units/Ml 3 Ml Pen) 4 units SUBCUT BEDTIME [facility] Last Admin: 10/13/20 21:48 Dose: 4 units Documented by: Ondansetron HCl (Ondansetron 4 Mg Tab) 4 mg PO TID PRN PRN Reason: Nausea Pantoprazole Sodium (Pantoprazole 40 Mg Tab.Cr) 40 mg PO DAILY [facility] Last Admin: 10/14/20 08:43 Dose: 40 mg Documented by: Acetaminophen With Codeine [ Acetaminophen-Cod #4 ] 2 each PO Q4H PRN PRN Reason: Pain Last Admin: 10/14/20 13:49 Dose: 2 each Documented by: Umeclidinium 62.5mcg (/Vilanterol 25mcg) 1 each INH DAILY [facility] Last Admin: 10/14/20 08:30 Dose: 1 each Documented by: Sodium Chloride (Sodium Chloride 0.9% 10 Ml Syringe) 10 ml FLUSH ASDIRECTED PRN PRN Reason: Keep Vein Open Last Admin: 10/13/20 00:39 Dose: 10 ml Documented by: Sodium Chloride (Sodium Chloride 0.9% 2.5 Ml Syringe) 2.5 ml FLUSH ASDIRECTED PRN PRN Reason: Keep Vein Open Last Admin: 10/13/20 00:39 Dose: 2.5 ml Documented by: Thiamine HCl (Thiamine 100 Mg Tab) 100 mg PO BEDTIME [facility] Last Admin: 10/13/20 21:47 Dose: 100 mg Documented by: Vancomycin HCl (Pharmacy To Dose - Vancomycin) 1 dose .XX ASDIRECTED [facility] Discontinued Medications Gadobenate Dimeglumine (Gadobenate Dimeglumine 529 Mg/Ml 20 Ml Sdv) 20 ml IVPUSH ONETIME STA Stop: 10/14/20 12:03 Last Admin: 10/14/20 12:03 Dose: 6 ml Documented by: Sodium Chloride (Normal Saline) 1,000 mls @ 999 mls/hr IV .Bolus ONE Stop: 10/13/20 01:22 Last Admin: 10/13/20 00:38 Dose: 999 mls/hr Documented by: Piperacillin Sod/Tazobactam (Sod 3.375 gm/ Sodium Chloride) 50 mls @ 100 mls/hr IV ONETIME ONE Stop: 10/13/20 03:46 Last Admin: 10/13/20 03:21 Dose: 100 mls/hr Documented by: Sodium Chloride (Normal Saline) Confirm Administered Dose 50 mls @ as directed .ROUTE .STK-MED ONE Stop: 10/13/20 03:30 Last Admin: 10/13/20 06:57 Dose: Not Given Documented by: Vancomycin HCl 500 mg/ Sodium (Chloride) 100 mls @ 100 mls/hr IV Q24H [facility] Last Admin: 10/13/20 06:13 Dose: 100 mls/hr Documented by: Magnesium Sulfate (Magnesium Sulfate In Water 2 Gm/50 Ml) 2 gm in 50 mls @ 50 mls/hr IV ONETIME ONE Stop: 10/14/20 08:28 Last Admin: 10/14/20 08:42 Dose: 50 mls/hr Documented by: Non-Formulary Medication (Acetaminophen With Codeine [Acetaminophen-Cod #4]) 2 tab PO Q4HR PRN PRN Reason: Pain Non-Formulary Medication (Albuterol) 2 puff INH Q4H PRN PRN Reason: Shortness of Breath Ondansetron HCl (Ondansetron 4 Mg/2 Ml Sdv) 4 mg IVPUSH ONETIME ONE Stop: 10/13/20 00:23 Last Admin: 10/13/20 00:38 Dose: 4 mg Documented by:
[2020-10-14 15:51] VITALS: BP 111/44; PULSE 72
== END 2020-10-14 16:00 | DRG 638 ==
LOC: MW.ED 23:10 → MW.MS 10-13 03:00 → OBSVTOIN 10-14 09:34 → MW.MS 10-14 09:35
PROVIDERS: ADMIT Internal Medicine; ATTEND Internal Medicine
DX: E10.621 Type 1 diabetes mellitus with foot ulcer (principal); E11.69 Type 2 diabetes mellitus with other specified complication; M86.9 Osteomyelitis, unspecified; E11.42 Type 2 diabetes mellitus with diabetic polyneuropathy; N17.9 Acute kidney failure, unspecified; E11.621 Type 2 diabetes mellitus with foot ulcer; E86.0 Dehydration; L97.519 Non-pressure chronic ulcer of other part of right foot with unspecified severity; L97.529 Non-pressure chronic ulcer of other part of left foot with unspecified severity; I25.10 Atherosclerotic heart disease of native coronary artery without angina pectoris; K74.60 Unspecified cirrhosis of liver; J44.9 Chronic obstructive pulmonary disease, unspecified; M19.90 Unspecified osteoarthritis, unspecified site; I10 Essential (primary) hypertension; K21.9 Gastro-esophageal reflux disease without esophagitis; M54.9 Dorsalgia, unspecified; G89.29 Other chronic pain; M85.80 Other specified disorders of bone density and structure, unspecified site; I95.9 Hypotension, unspecified; E83.42 Hypomagnesemia; Z20.822 Contact with and (suspected) exposure to COVID-19; I25.2 Old myocardial infarction; Z95.5 Presence of coronary angioplasty implant and graft; Z79.4 Long term (current) use of insulin; Z79.82 Long term (current) use of aspirin; Z79.899 Other long term (current) drug therapy; Z87.891 Personal history of nicotine dependence; Z98.49 Cataract extraction status, unspecified eye; Z90.49 Acquired absence of other specified parts of digestive tract; Z90.710 Acquired absence of both cervix and uterus; Z98.51 Tubal ligation status; H54.7 Unspecified visual loss; Z87.11 Personal history of peptic ulcer disease; Z90.3 Acquired absence of stomach [part of]; Z79.02 Long term (current) use of antithrombotics/antiplatelets
CPT/HCPCS: 36415 ×3; 71045; 74176; 80048; 80053 ×2; 81001; 82947 ×7; 83036; 83605; 83690; 83735 ×2; 84443; 85025 ×2; 85027; 85610; 85652; 85730; 86140; 87040 ×2; 93005; A9270 ×9; J1815 ×2; J2405; J2543 ×5; J3370 ×2; J3475; J7030 ×4; U0002; 73720-26-LT; 73720-26-RT; 73720-LT; 73720-RT; 93010; 99284; A9577